=== PATIENT | female | born 1950 | race Caucasian/White ===

== ENCOUNTER 2023-02-16 09:26 | Outpatient (OUT) | payer MEDICARE, SELFPAY ==
[2023-02-16 11:08] LABS: Bilirubin Urine NEGATIVE (NEGATIVE); Blood Urine TRACE-I (NEGATIVE); Clarity Urine CLEAR (CLEAR); Color Urine LT. YELLOW (YELLOW); Glucose Urine UA NEGATIVE (NEGATIVE); Ketones Urine NEGATIVE (NEGATIVE); Leukocyte Esterase Urine NEGATIVE (NEGATIVE); Nitrite Urine NEGATIVE (NEGATIVE); Protein Urine NEGATIVE (NEG/TRACE); Urobilinogen Urine 0.2 EU/dL (0.2-1.0)
[2023-02-16 11:26] LABS: Urine Microscopic Indicated YES
[2023-02-16 11:33] LABS: RBC Urine 0-2 #/HPF (0-2)
[2023-02-16 11:36] LABS: WBC Urine NONE SEEN #/HPF (NONE SEEN)
[2023-02-16 11:38] LABS: Bacteria Urine NONE SEEN #/HPF (NONE SEEN); Mucus Urine NONE SEEN (NONE SEEN)
[2023-02-16 11:39] LABS: Crystals Seen? None Seen #/HPF (None Seen); Squamous Epithelial Cell Urine FEW #/LPF (NONE/RARE); Transitional Epi Cells Urine RARE #/LPF (NONE SEEN)
== END 2023-02-16 09:27 ==
LOC: LAB 09:32
PROVIDERS: PCP Family Medicine; Visit Provider Family Medicine
DX: R82.81 Pyuria (principal); N39.41 Urge incontinence
CPT/HCPCS: 81003; 81015; 87086

== ENCOUNTER 2024-06-27 17:05 | Emergency (ER) | payer MEDICARE, OTHER, SELFPAY ==
[2024-06-27 17:08] VITALS: BP 155/85; PULSE 110; TEMP 36.7; O2SAT 99; BMI 30.5
--- NOTE | 2024-06-27 17:14 | ECG_ITS ---
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
--- NOTE | 2024-06-27 17:28 | ED.GENADUL1 ---
HPI HPI - General Adult General Chief complaint: Extremity Problem, Nontraumatic Stated complaint: Facial Pain, Numbness Time Seen by Provider: 06/27/24 17:12 Source: patient Mode of arrival: walk-in History of Present Illness HPI narrative: 74-year-old female to the emergency department chief complaint of left jaw pain. Patient reports she had some dental work done recently. She has since developed left-sided TMJ discomfort. Hurts worse when she opens her mouth. No chest pain or shortness of breath. No fever, sweats, chills. No injuries. She is otherwise at her baseline health. Related Data Previous Rx's ?Medication ?Instructions ?Recorded methylprednisolone 4 mg tablets in 4 mg PO DAILY #21 ea 06/27/24 a dose pack (Medrol (Landon)) Allergies Allergy/AdvReac Type Severity Reaction Status Date / Time clindamycin Allergy Severe Rash Verified 06/27/24 17:12 hydroxychloroquine (From Allergy Severe Rash Verified 06/27/24 17:12 Plaquenil) Opioid HPI Opioid Management Most Recent Opioid Data: No Data to Display Review of Systems ROS Status of ROS 10 or more systems reviewed and unremarkable except as noted in history and below PFSH PFSH Social History Little interest or pleasure in doing things: not at all Feeling down, depressed, or hopeless: not at all Exam Narrative Exam Narrative: VITALS: I have reviewed the triage vital signs. GENERAL: Well developed, well appearing adult in no acute distress. NEURO: Alert and oriented. Moves all extremities. Face is symmetric and expressive. EYES: PERRL. No scleral icterus or conjunctival injection. No discharge. HENT: Normocephalic, atraumatic. Hearing is grossly intact. Nares grossly patent and without discharge. Mucous membranes moist. Tenderness in the left TMJ. No clicking, popping, dislocation of the TMJ. No evidence of dental infection or deep space abscess. Oropharyngeal exam is unremarkable. TM is unremarkable on the left and the right. No lymphadenopathy. NECK: No JVD. Patient moves neck without restriction. EXTREMITIES: Symmetric muscle bulk. No joint swelling. No clubbing, cyanosis, or deformity. SKIN: Warm and dry. Normal turgor. No rash or lesions appreciated. PSYCH: Mood, affect, and interaction is appropriate to the setting. Constitutional Vital Signs, click to edit/add: Last Vital Signs Temp 98.0 F 06/27/24 17:08 Pulse 110 H 06/27/24 17:08 Resp 18 06/27/24 17:08 BP 155/85 H 06/27/24 17:08 Pulse Ox 99 06/27/24 17:08 O2 Del Method Room Air 06/27/24 17:08 Course Vital Signs Vital signs: Vital Signs Temperature 98.0 F 06/27/24 17:08 Pulse Rate 110 H 06/27/24 17:08 Respiratory Rate 18 06/27/24 17:08 Blood Pressure 155/85 H 06/27/24 17:08 Pulse Oximetry 99 06/27/24 17:08 Oxygen Delivery Method Room Air 06/27/24 17:08 Temperature 98.0 F 06/27/24 17:08 Pulse Rate 110 H 06/27/24 17:08 Respiratory Rate 18 06/27/24 17:08 Blood Pressure 155/85 H 06/27/24 17:08 Pulse Oximetry 99 06/27/24 17:08 Oxygen Delivery Method Room Air 06/27/24 17:08 Medical Decision Making MDM Narrative Medical decision making narrative: 74-year-old female to the emergency department chief complaint of left-sided TMJ discomfort. Vital stable, the patient is afebrile. EKG normal sinus rhythm at a rate of 97. No STEMI. Normal QTc. Clinical picture is that of TMJ dysfunction likely in the setting of recent dental work. She cannot take NSAIDs currently per her report. Trial of Medrol Dosepak. Follow-up with dentist if symptoms continue. Return precautions were discussed. All questions were answered. The patient was discharged home. Discharge Plan Discharge Chief Complaint: Extremity Problem, Nontraumatic Clinical Impression: TMJ dysfunction Patient Disposition: Home, Self-Care Time of Disposition Decision: 17:20 Condition: Good Mode of Transportation: Private Vehicle Prescriptions / Home Meds: New methylprednisolone [Medrol (Landon)] 4 mg tablets,dose pack 4 mg PO DAILY Qty: 21 0RF Rx Instructions: TAKE PER DOSEPAK INSTRUCTIONS Print Language: Jordanian Instructions: Temporomandibular Disorder (ED) Additional Instructions: Call the office of your primary care doctor to arrange for follow-up within the above-stated timeframe. Your ED visit was focused on your acute issue and does not replace primary care. You should review your labs, imaging, and diagnoses from this ED visit with your primary care physician. There may be non-emergent/ incidental findings that need further evaluation. You should review your vital signs including blood pressure with your PCP. If you were prescribed medications you should discuss possible side-effects and drug interactions with your pharmacist. Call 911 or go to the nearest Emergency Department if you develop any new or worsening symptoms. Referrals: LULI TIM [Primary Care Provider] - 1 week
== END 2024-06-27 17:36 | disposition home or self-care (01) ==
PROVIDERS: Emergency Provider Student in an Organized Health Care Education/Training Program; PCP Family Medicine
DX: M26.602 Left temporomandibular joint disorder, unspecified (principal)
CPT/HCPCS: 93005; 99283

== ENCOUNTER 2025-02-18 13:19 | Outpatient (OUT) | payer MEDICARE, OTHER, SELFPAY ==
--- OUTSIDE RECORDS SUMMARY | 2025-02-11 14:30 | XMS_ITS | Encounter Summary ---
Author Organization [facility] Address [address] [place] [address] Care Team Providers Care Greige Goods Examiner Name Role Phone Will Alvarez MD Unavailable Jeet Aguirre MD Unavailable [phone] Osei Arevalo DPM Unavailable Will Alvarez MD Primary Care Provider Reason for Visit * Reason Comments DM Foot Care Established patient presents today for diabetic nail care. PCP: Dr. Alvarez LV 02/02/25, A1C: 5.7 (05/2024), BS: doesn't check Encounter Details Date Type Department Care Team (Latest Contact Info) Description 02/11/2025 2:30 PM EDT Procedure Visit [facility] [address] [place] [address] Osei Arevalo, DPM [address] [place] [address] Onychomycosis (Primary Dx); Onychodystrophy; Diabetic polyneuropathy associated with type 2 diabetes mellitus ([facility]) Social History Tobacco Use Types Packs/Day Years Used Date Smoking Tobacco: Every Day Cigarettes Tobacco Cessation:Ready to Q uit: Not Asked; Counseling Given: Not Answered Comments:6-10 cigs/day Alcohol Use Standard Drinks/Week Comments Not Currently 0 (1 standard drink = 0.6 oz pur e alcohol) caffeine: 2-3 cups per day PHQ-2 Answer Date Recorded Patient Health Questionnaire-2 Score 1 02/02/2025 Education Answer Date Recorded What is the highest level of school you have completed or the highest degree you have received? 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 Subjective Patient ID: Sonia Blanc is a 74 y.o. female who presents for DM Foot Care (Established patient presents today for diabetic nail care. PCP: Dr. Antonio RENAE 02/02/25, A1C: 5.7 (05/2024), BS: doesn't check). HPI Established patient returns to clinic for diabetic foot check. Review of Systems Constitutional: Negative for activity change and appetite change. Respiratory: Negative for chest tightness and shortness of breath. Cardiovascular: Positive for leg swelling. Negative for chest pain. Musculoskeletal: Positive for arthralgias. Skin: Negative for color change and wound. Neurological: Negative for weakness and numbness. Psychiatric/Behavioral: Negative for agitation and behavioral problems. Hematological: Does not bruise/bleed easily. Endocrine: Negative for cold intolerance and heat intolerance. Allergic/Immunologic: Negative for immunocompromised state. Medications Current Outpatient Medications: acetaminophen (Tylenol 8 Hour) 650 MG ER tablet, Take 650 mg by mouth every 8 (eight) hours if needed for mild pain Do not crush, chew, or split., Disp: , Rfl: aspirin 81 MG EC tablet, Take 81 mg by mouth Daily, Disp: , Rfl: atorvastatin (Lipitor) 10 MG tablet, Take 1 tablet (10 mg) by mouth at bedtime, Disp: 90 tablet, Rfl: 3 folic acid (Folvite) 1 MG tablet, 1 mg, Disp: , Rfl: methotrexate 2.5 MG tablet, , Disp: , Rfl: nabumetone (Relafen) 750 MG tablet, Take 750 mg by mouth in the morning and 750 mg before bedtime.,Disp: , Rfl: omeprazole (PriLOSEC) [address] capsule, Take 20 mg by mouth in the morning. Take before meals., Disp: , Rfl: DULoxetine (Cymbalta) [address] capsule, Take 1 capsule (60 mg) by mouth Daily, Disp: 90 capsule, Rfl: 1 metFORMIN (Glucophage) 1000 MG tablet, Take 1 tablet (1,000 mg) by mouth in the morning and 1 tablet (1,000 mg) in the evening. Take with meals., Disp: 180 tablet, Rfl: 1 Allergies Hydroxychloroquine, Clindamycin, and Levofloxacin Past Surgical History Past Surgical History: Procedure Laterality Date APPENDECTOMY CARPAL TUNNEL RELEASE Right 07/26/2022 Dr Garcia, [facility] CHOLECYSTECTOMY HYSTERECTOMY IR JOINT ASPIRATION Right Arthrocentesis of the right knee joint AL KNEE SCOPE,DIAGNOSTIC Right Dr. Cardona AL MANIPULATION KNEE JOINT UNDER GENERAL ANESTHESIA Right 02/09/2021 Dr Magana REVERSE TOTAL SHOULDER ARTHROPLASTY Right 10/29/2023 Dr Magana ROTATOR CUFF REPAIR Left TONSILLECTOMY TOTAL KNEE ARTHROPLASTY 07/21/19 Left, 11/10/20 Right - Dr Magana TOTAL SHOULDER ARTHROPLASTY Left 04/19/2023 Dr Sergey clifton Family History Family History Problem Relation Name Age of Onset No Known Problems Sister Objective Physical Exam Constitutional: General: She is not in acute distress. Appearance: She is obese. Cardiovascular: Comments: DP pulse: 2/4 PT pulse: 2/4 Skin temperature is warm to cool bilaterally Edema: Mild nonpitting edema bilateral lower extremities Pulmonary: Effort: Pulmonary effort is normal. No respiratory distress. Musculoskeletal: Cervical back: Neck supple. No rigidity. Comments: Pedal deformities: Multiple contracted toes bilaterally. Ankle dorsiflexion 0 degrees with the knee extended and flexed bilaterally. Bilateral midfoot arthritis with palpable osteophytes. Skin: Capillary Refill: Capillary refill takes less than 2 seconds. Comments: 5 toenails exhibit clinical mycosis with thickened appearance, yellow/brown discoloration, crumbly texture and subungual debris. All toenails are elongated. Right hallux nail has been permanently avulsed. Hyperkeratotic tissue: Left foot: None Right foot: None Skin is diffusely thin and atrophic Hair growth: Absence of the hair and toes Neurological: Mental Status: She is alert. Comments: Protective sensation intact at 9/10 pedal sites Vibratory sensation diminished at the 1st MTP bilaterally. Psychiatric: Mood and Affect: Mood normal. Behavior: Behavior normal. Assessment/Plan ICD-10-CM 1. Onychomycosis B35.1 2. Onychodystrophy L60.3 3. Diabetic polyneuropathy associated with type 2 diabetes mellitus (CMS/HCC) E11.42 Patient was examined and evaluated. 9 toenails were debrided in length and thickness today utilizing a nail nipper and electric bur rotary surface grinder without incident. I have discussed the importance of daily foot examinations and tight blood sugar control. We will follow up in 3 months for at risk diabetic foot evaluation. This note was created with the assistance of a speech recognition program. While intending to generate a timely document that accurately reflects the content of the visit, no guarantee can be provided that every grammatical or spelling mistake has been or will be identified or corrected. Thank you for your understanding. Osei Arevalo DPM documented in this encounter Plan of Treatment Upcoming Encounters Date Type Department Care Team (Late st Contact Info) Description 05/19/2025 3:00 PM EDT Procedure Visit [facility] [address] [place] [id number] Osei Arevalo DPM [address] [place], [place] [id number] documented as of this encounter Visit Diagnoses Diagnosis Onychomycosis- Primary Dermatophytosis of nail Onychodystrophy Other specified disease of nail Diabetic polyneuropathy associated with type 2 diabetes mellitus (CMS/HCC) documented in this encounter Additional Health Concerns Assessment Noted Time PHQ-9 Depression Total Score: 5 02/03/20 25 9:00 AM EDT documented as of this encounter Care Teams Greige Goods Examiner Relationship Specialty Start Date End Date Will Alvarez MD [address] [place] [address] PCP - ACO Reach 02/08/23 Will Alvarez MD [address] [place] [address] PCP - General Family Medicine 02/10/25 Jeet Aguirre MD [address] [facility] [address] [place] [id number] Referring Physician Rheumatology 10/25/23 Osei Arevalo DPM [address] [place] [address] Referring Physician Podiatry 10/25/23 documented as of this encounter
--- OUTSIDE RECORDS SUMMARY | 2025-02-18 13:21 | XMS_ITS | Clinical Summary ---
Author Organization [employer] Address [id number] [address] [place] [address] Care Team Providers Care Systems Software Developer Name Role Phone Will Alvarez MD Primary Care Provider + [phone] Allergies Active Allergy Reactions Criticality Noted Date Comments Levofloxacin Rash Low 05/02/2023 Hydroxychloroquine Rash Low 10/20/2020 Medications methotrexate 2.5 mg chemo tabletIndications :rheumatoid arthritis Take 1 tablet by mouth once a week 8 tabs every Sunday Indications: rheumatoid arthritis Active nsqwirxb-lmpu-VW- calcium &mins (THERAGRAN-M) 9 mg iron-400 mcg tablet Take 1 tablet by mouth in the morning. Active omeprazole (PriLOSEC) 20 mg capsuleIndication s:gastroesophagea l reflux disease Take 1 capsule (20 mg total) by mouth in the morning. Indications: gastroesophageal reflux disease. Active atorvastatin (LIPITOR) 10 mg tabletIndications :mixed hyperlipidemia Take 1 tablet (10 mg total) by mouth in the morning. Indications: high cholesterol and high triglycerides. Activ e metFORMIN (GLUCOPHAGE) 1000 mg tabletIndications :type 2 diabetes mellitus Take 1 tablet (1,000 mg total) by mouth in the morning and 1 tablet (1,000 mg total) in the evening. Take with meals. Indications: type 2 diabetes mellitus. Active folic acid (FOLVITE) 1 mg tablet Take 1 tablet (1 mg total) by mouth in the morning. Active latanoprost (XALATAN) 0.005 % ophthalmic solutionIndicatio ns:open angle glaucoma Administer 1 drop to both eyes nightly Indications: wide-angle glaucoma. Active aspirin 81 mgIndications:samra cardial infarction prevention Take 1 tablet (81 mg total) by mouth in the morning. Indications: treatment to prevent a heart attack. Active gabapentin (NEURONTIN) 600 mg tabletIndications :neuropathic pain Take 1 tablet (600 mg total) by mouth as needed Indications: neuropathic pain. 01/09/20 Active amoxicillin (AMOXIL) 500 mg capsule Take 1 capsule (500 mg total) by mouth once. Active DULoxetine (CYMBALTA) 60 mg capsule Take 1 capsule (60 mg total) by mouth in the morning. 06/14/20 Active sennosides-docusa te sodium (SENOKOT-S) 8.6-50 mgIndications:Lef t rotator cuff tear arthropathy Take 2 tablets by mouth in the morning and 2 tablets before bedtime. 120 tablet 05/17/20 Active Active Problems Problem Noted Date Diagnosed Date Urge incontinence of urine 05/02/2023 Asymptomatic microscopic hematuria 05/01/2023 Left rotator cuff tear arthropathy 02/28/2023 Neuropathy of left lower extremity 02/08/2023 Leg length discrepancy 02/08/2023 Degenerative disc disease, cervical 02/08/2023 Chronic pain disorder 06/28/2021 Recurrent hematuria 06/13/2021 Chronic fatigue 05/25/2021 Ankylosis of knee joint 02/03/2021 Status post right knee replacement 12/27/2020 Primary osteoarthritis of right knee 11/09/2020 Unspecified rotator cuff tea r or rupture of left shoulder, not specified as traumatic 08/02/2020 Gastroesophageal reflux disease without esophagi tis 02/11/2020 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 02/11/2020 Rheumatoid arthritis 12/04/2019 Obesity 11/10/2019 Artificial knee joint present 07/29/2019 Difficulty walking 07/27/2019 Venous insufficiency 11/28/2018 Recurrent major depressive disorder, in partial remission 11/28/2018 Mixed hyperlipidemia 12/21/2017 Essential hypertension 08/29/2017 Family History Medical History Relation Name Comments Diabetes Father Diabetes Mother Anesthesia problems Neg Hx Relation Name Status Comments Father Mother Social History Tobacco Use Types Packs/Day Years Used Date Smoking Tobacco: Every Day Cigarettes 0.3 42 Passive Smoke Exposure: Past Smokeless Tobacco: Never Alcohol Use Standard Drinks/Week Comments Never 0 (1 standard drink = 0.6 oz pur e alcohol) AUDIT-C Answer Date Recorded Q1: How often do you have a drink containing alc ohol? Never 10/20/2020 Average Number of Drinks Not on file 021 Frequency of Binge Drinking Not on file 11/2020 PHQ-2 Answer Date Recorded Total Score 0 11/10/2020 Housing Instability Answer Date Recorde d Are you worried or concerned that in the next two months you may not have stable housing that you own, rent or stay in as a part of a household? No 05/16/2023 Childcare Answer Date Recorded Do problems getting child ca re make it difficult for you to work or study? No 11/10/2020 Employment Answer Date Recorded Do you need help finding a [employer] career center and/or a training program? No 11/10/2020 Hunger Screening Answer Date Recorded Within the past 12 months we worried whether our food would run out before we got money to buy more. Never True 08/07/2023 Within the past 12 months th e food we bought just didn't last and we didn't have money to get more. Never True 08/07/2023 Purpose - Life Answer Date Recorded I have a purpose and direction in my life. Agree 11/10/2020 Comments No Sex and Gender Information Value Date Recorded Sex Assigned at Not on file Legal Sex Female 11:53 AM EDT Gender Identity Not on file Sexual Orientation Not on file Last Filed Vital Signs Vital Sign Reading Time Taken Comments Blood Pressure 117/59 05/16/2023 1:58 PM EDT Pulse 80 05/16/2023 1:58 PM EDT Temperature 36.1 C (97 F) 05/16/2023 1:58 PM EDT Respiratory Rate 16 05/16/2023 1:58 PM EDT Oxygen Saturation 100% 05/16/2023 1:58 PM EDT Inhaled Oxygen Concentration - - Weight 83.5 kg (184 lb) 08/07/2023 12:47 PM EST Height 160 cm (5' 3 ) 08/07/2023 12:47 PM EST Body Mass Index 32.59 08/07/2023 12:47 PM EST Plan of Treatment Health Maintenance Due Date Last Done Comments Depression Screening 1962 DTaP,Tdap and Td Vaccines (1 - Tdap) 1971 Zoster (Shingles) Vaccine (2 of 3) 04/09/2015 02/12/2015 Fall Risk Screening 2017 COVID-19 Vaccine (2023-2 5 season) 2024 08/01/2021, 10/26/2020, 10/05/2020 Adult BMI Screening 08/07/2024 08/07/2023 Tobacco Screening 08/07/2024 08/07/2023 Influenza Vaccine 05/18/2025 06/13/2023, , 07/08/2021, Additional history exists Goals Goal Patient Goal Type Associated Problems Recent Progress Patient-Stated? Author Improve mobility General Yes Zenia Richard, RN Note: Evaluation of progress towards goal: Maximize work with PT at discharge to strengthen Left TSR Medical Devices Implanted Type Area Turbine Inspector Device Identifier Shelf Expiration Date Model / Serial / Lot Bearing Hum 36mm Cmprh Std Shldr Prlng Rvrs - [id number] Implanted:Qty : 1 on 05/16/2023 by Joshua Rincon MD at [facility] Bearing Left: Shoulder [employer] [id number] 11/26/2027 [id number] / / [id number] Cmnt Bn Bio 40gm Rpl [id number] - Sna - [id number] Implanted:Qty : 2 on 11/10/2020 by Slava Magana DO at [facility] Cement Right: Knee [employer] 09/16/2024 [id number] / NA / [id number] Cmpt Fem 5 Kn Rt Crcte Rtn - Sna - [id number] Implanted:Qty : 1 on 11/10/2020 by Slava Magana DO at [facility] Orthopedic Implant Right: Knee [employer] 12/15/2028 [id number] / NA / [id number] Cmpt Ptlr 35mm Medialized Dome - Sna - [id number] Implanted:Qty : 1 on 11/10/2020 by Slava Magana DO at [facility] Orthopedic Implant Right: Knee [employer] 06/16/2025 [id number] / NA / [id number] Ins Tib 5 5mm Cr Fx Brng - Sna - [id number] Implanted:Qty : 1 on 11/10/2020 by Slava Magana DO at [facility] Orthopedic Implant Right: Knee [employer] 07/17/2025 [id number] / NA / [id number] Impl Kn Fx Brng W Spcl Ins Construct Rpl [id number] - Sna - [id number] Implanted:Qty : 1 on 11/10/2020 by Slava Magana DO at [facility] Orthopedic Implant Right: Knee OR[employer] [id number] / NA / NA Baseplate Krishna Cmprh Sm Shldr Aug Tpr Adpr - [id number] Implanted:Qty : 1 on 05/16/2023 by Joshua Rincon MD at [facility] Orthopedic Implant Left: Shoulder [employer] [id number] 04/26/2028 [id number] / / [id number] Component Krishna 36mm Std Glenosphere Clr Cd Cmprh Versa-Dial - [id number] Implanted:Qty : 1 on 05/16/2023 by Joshua Rincon MD at [facility] Orthopedic Implant Left: Shoulder [employer] [id number] 10/18/2032 [id number] / / [id number] Stem Hum 55mm 11mm Cmprh Por Mt Shldr Rvrs Sys - [id number] Implanted:Qty : 1 on 05/16/2023 by Joshua Rincon MD at [facility] Orthopedic Implant Left: Shoulder [employer] 01/09/2033 [id number] / / [id number] Tray Hum Cmprh Std Shldr Rvrs - [id number] Implanted:Qty : 1 on 05/16/2023 by Joshua Rincon MD at [facility] Orthopedic Implant Left: Shoulder [employer] [id number] 04/09/2033 [id number] / / [id number] Bsplt Tib 5 Kn Cmnt Fx Brng - Sna - [id number] Implanted:Qty : 1 on 11/10/2020 by Slava Magana DO at [facility] Plate Right: Knee [employer] 06/16/2030 [id number] / NA / [id number] Screw Bn 30mm 6.5mm Cntr Hx Hd Ti Cmprh 3.5mm Strl Rvrs - [id number] Implanted:Qty : 1 on 05/16/2023 by Joshua Rincon MD at [facility] Screw Left: Shoulder [employer] 11/09/2032 [id number] / / [id number] Screw Bn 20mm 4.75mm Lck Fx Ang Hx Hd Ti Cmprh 3.5mm Strl - [id number] Implanted:Qty : 1 on 05/16/2023 by Joshua Rincon MD at [facility] Screw Left: Shoulder [employer] [id number] 02/01/2033 [id number] / / [id number] Screw Bn 15mm 4.75mm Lck Fx Ang Hx Hd Ti Cmprh 3.5mm Strl - [id number] Implanted:Qty : 1 on 05/16/2023 by Joshua Rincon MD at [facility] Screw Left: Shoulder [employer] [id number] 04/01/2033 [id number] / / [id number] Screw Bn 15mm 4.75mm Lck Fx Ang Hx Hd Ti Cmprh 3.5mm Strl - [id number] Implanted:Qty : 1 on 05/16/2023 by Joshua Rincon MD at [facility] Screw Left: Shoulder [employer] [id number] 04/01/2033 [id number] / / [id number] Screw Bn 20mm 4.75mm Va Hx Hd Ti Cmprh 3.5mm Strl Rvrs Shldr - [id number] Implanted:Qty : 1 on 05/16/2023 by [facility] Screw Left: Shoulder [employer] [id number] 01/05/2032 [id number] / / [id number] Insurance MEDICARE COMMERCIAL Advance Directives Documents on File Type Date Recorded Patient Legal Adviser Expl anation Durable Power of Decorative Cutting Machine Tender 05/02/2023 12:37 PM POA * Full Code (Latest Code Status on File) Date Activated Date Inactivated Comments 05/16/2023 10:16 AM 05/16/2023 5:16 PM * Full Code Date Activated Date Inactivated Comments 11/10/2020 11:25 AM 11/11/2020 7:52 PM Care Teams Systems Software Developer Relationship Specialty Start Date End Date Will Alvarez MD PCP - General Family Medicine 10/20/20
--- OUTSIDE RECORDS SUMMARY | 2025-02-18 13:22 | XMS_ITS | Clinical Summary ---
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 Take before meals. 3 Active folic acid (Folvite) 1 MG tablet 1 mg 4 Active acetaminophen (Tylenol 8 Hour) 650 MG ER tablet Take 650 mg by mouth every 8 (eight) hours if needed for mild pain Do not crush, chew, or split. Active metFORMIN (Glucophage) 1000 MG tabletIndications:I mpaired glucose tolerance test Take 1 tablet (1,000 mg) by mouth in the morning and 1 tablet (1,000 mg) in the evening. Take with meals. 180 tablet 1 4 Active DULoxetine (Cymbalta) [address] capsuleIndications: Recurrent major depressive disorder, in partial remission (HCC) (CMS/HCC) Take 1 capsule (60 mg) by mouth Daily 90 capsule 1 4 Active atorvastatin (Lipitor) 10 MG tabletIndications:M ixed hyperlipidemia (CMS/HCC) Take 1 tablet (10 mg) by mouth at bedtime 90 tablet 3 5 10/20/19 26 Active nabumetone (Relafen) 750 MG tablet Take 750 mg by mouth in the morning and 750 mg before bedtime. 5 Active Active Problems Problem Noted Date Diagnosed Date Microalbuminuria 02/15/2025 Diverticulosis large intesti ne w/o perforation or abscess w/o bleeding 07/15/2024 Artificial knee joint present, right 02/07/2024 Presence of artificial shoulder joint, right Hypertensive nephropathy 10/09/2023 Left foot pain 08/23/2023 Cubital tunnel syndrome on left 07/05/2023 Presence of artificial shoulder joint, left 06/17 Asymptomatic microscopic hematuria 05/01/2023 Nocturnal enuresis 05/01/2023 Urge incontinence of urine 05/01/2023 Anterolisthesis of cervical spine 02/08/2023 Artificial knee joint present, left 02/08/2023 Cervical arthritis 02/08/2023 Chronic fatigue 02/08/2023 Chronic pain syndrome 02/08/2023 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 02/08/2023 Cigarette smoker 02/08/2023 Degenerative disc disease, cervical 02/08/2023 Dermatomyositis 02/08/2023 Essential hypertension 02/08/2023 Gastroesophageal reflux disease without esophagi tis 02/08/2023 Hx of abdominal hysterectomy 02/08/2023 Leg length discrepancy 02/08/2023 Mixed hyperlipidemia 02/08/2023 Obesity (BMI 30.0-34.9) 02/08/2023 Recurrent major depressive d isorder, in partial remission (HCC) 02/08/2023 Venous insufficiency 02/08/2023 Polypharmacy 10/26/2020 Rheumatoid arthritis 12/04/2019 Impaired glucose tolerance test 01/22/2019 Insulin resistance 01/22/2019 Resolved Problems Problem Noted Date Diagnosed Date Resolved Date Positive colorectal cancer s creening using Cologuard test 05/23/2024 06/24/2024 Left shoulder pain 07/04/2023 4 Arthritis of right acromioclavicular joint 02/08/2023 02/07/2024 Bone spur 02/08/2023 02/05/2024 Arthritis of left glenohumeral joint 02/08/2023 02/07/2024 Neurologic disorder associat ed with diabetes mellitus 02/08/2023 02/05/2024 Neuropathy of left lower extremity 02/08/2023 02/05/2024 Primary osteoarthritis of left knee 02/08/2023 02/07/2024 Rupture of right rotator cuff 02/08/2023 02/07/2024 Status post left knee replacement 02/08/2023 02/07/2024 Tear of left rotator cuff 02/08/2023 Encounters Date Type Department Care Team Description 02/15/2025 Orders Only [facility] [address] [place] [address] Will Alvarez MD 02/11/2025 2:30 PM EDT Procedure Visit [facility] [address] [place] [address] Osei Arevalo DPM Onychomycosis (Primary Dx); Onychodystrophy; Diabetic polyneuropathy associated with type 2 diabetes mellitus ([facility]) 02/11/2025 Bamboo flowsheet [facility] [address] [place] [address] Osei Arevalo DPM 02/11/2025 Travel 02/10/2025 Travel 02/02/2025 9:00 AM EDT Office Visit [facility] [address] [place] [address] Will Alvarez MD Encounter for Medicare annual wellness exam (Primary Dx); Advance directive in chart; Encounter for screening for other disorder; Screening for alcohol problem; Obesity (BMI 30.0-34.9); Screening mammogram, encounter for; Screening for osteoporosis; Dermatomyositis (CMS/[facility]); Rheumatoid arthritis involving multiple sites with positive rheumatoid factor ([facility]); Recurrent major depressive disorder, in partial remission (HCC) (CMS/HCC); Mixed hyperlipidemia (CMS/HCC); Essential hypertension (CMS/HCC); Hypertensive nephropathy (CMS/HCC); Menopause; Insulin resistance; Impaired glucose tolerance test; Cigarette smoker; Cardiovascular event risk 02/02/2025 Bamboo flowsheet [facility] [address] [place] [address] Will Alvarez MD 02/02/2025 Travel 01/20/2025 Telephone [facility] [address] [place] [address] CosmeLynn MA Referral 01/07/2025 Telephone [facility] [address] [place] [address] Will Alvarez MD 01/07/2025 Orders Only [facility] [address] [place] [address] Will Alvarez MD 01/06/2025 Telephone [facility] [address] [place] [address] Will Alvarez MD 01/05/2025 10:30 AM EDT Treatment [facility] [address] [place] [address] Michela Campos, PT Chronic pain syndrome (Primary Dx); Right leg weakness; Neuropathy; Right foot pain 01/05/2025 Bamboo flowsheet [facility] [address] [place] [address] Michela Campos, PT 01/05/2025 Travel 01/01/2025 2:00 PM EDT Treatment [facility] [address] [place] [address] Jaimee Velazquez, LEAN SENSEI Chronic pain syndrome (Primary Dx); Right leg weakness 01/01/2025 Bamboo flowsheet [facility] [address] [place] [address] Jaimee Velazquez, LEAN SENSEI 01/01/2025 Travel 12/30/2024 2:00 PM EDT Treatment [facility] [address] [place] [address] Kelbley, Jaimee, LEAN SENSEI Chronic pain syndrome (Primary Dx); Right leg weakness 12/30/2024 Bamboo flowsheet [facility] [address] [place] [address] Kelbley, Jaimee, LEAN SENSEI 12/30/2024 Travel 12/25/2024 2:00 PM EDT Treatment [facility] [address] [place] [address] Kelbley, Jaimee, LEAN SENSEI Chronic pain syndrome (Primary Dx); Right leg weakness 12/25/2024 Bamboo flowsheet [facility] [address] [place] [address] Kelbley, Jaimee, LEAN SENSEI 12/25/2024 Travel 12/22/2024 7:00 AM EDT Treatment [facility] [address] [place] [address] Kelbley, Jaimee, LEAN SENSEI Chronic pain syndrome (Primary Dx); Right leg weakness 12/22/2024 Bamboo flowsheet [facility] [address] [place] [address] Kelbley, Jaimee, LEAN SENSEI 12/22/2024 Travel 12/19/2024 10:00 AM EDT Treatment [facility] [address] [place] [address] Kelbley, Jaimee, LEAN SENSEI Chronic pain syndrome (Primary Dx); Right leg weakness 12/19/2024 Bamboo flowsheet [facility] [address] [place] [address] Kelbley, Jaimee, LEAN SENSEI 12/19/2024 Travel 12/16/2024 2:00 PM EDT Treatment [facility] [address] [place] [address] Kelbley, Jaimee, LEAN SENSEI Chronic pain syndrome (Primary Dx); Right leg weakness; Neuropathy 12/16/2024 Bamboo flowsheet [facility] [address] [place] [address] Audrey Velazquezissa, LEAN SENSEI 12/16/2024 Travel 12/10/2024 2:00 PM EDT Treatment [facility] [address] [place] [address] Audrey Velazquezissa, LEAN SENSEI Chronic pain syndrome (Primary Dx); Right leg weakness 12/10/2024 Bamboo flowsheet [facility] [address] [place] [address] Audrey Velazquezissa, LEAN SENSEI 12/10/2024 Travel 12/08/2024 8:30 AM EDT Treatment [facility] [address] [place] [address] Audrey Velazquezissa, LEAN SENSEI Chronic pain syndrome (Primary Dx); Right leg weakness; Neuropathy 12/08/2024 Telephone [facility] [address] [place] [address] Will Alvarez MD 12/08/2024 Bamboo flowsheet [facility] [address] [place] [address] Jaimee Velazquez, LEAN SENSEI 12/08/2024 Travel 12/05/2024 11:00 AM EDT Treatment [facility] [address] [place] [address] Nakul Garcia, LEAN SENSEI Chronic pain syndrome (Primary Dx); Right leg weakness; Neuropathy 12/05/2024 Bamboo flowsheet [facility] [address] [place] [address] Nakul Garcia, LEAN SENSEI 12/05/2024 Travel 12/03/2024 3:00 PM EDT Evaluation [facility] [address] [place] [address] Michela Campos, PT Right leg weakness (Primary Dx); Chronic pain syndrome; Neuropathy; Right foot pain 12/03/2024 Plan of Care Documentation [facility] [address] [facility] [address] [place] [address] 12/03/2024 Bamboo flowsheet [facility] [address] [facility] [address] [place] [address] Michela Campso, PT 12/03/2024 Travel 11/25/2024 Telephone [facility] [address] [facility] [address] [place] [address] Will Alvarez MD Results 11/24/2024 11:00 AM EDT Procedure Visit [facility] [address] [place] [address] Myranda Ruano DO Lumbosacral radiculopathy (Primary Dx); Right foot pain; Right leg weakness; Limping; Artificial knee joint present, right; Right leg swelling 11/24/2024 9:00 AM EDT Office Visit [facility] [address] [facility] [address] [place] [address] Will Alvarez MD Essential hypertension (CMS/HCC) ; Mixed hyperlipidemia (CMS/HCC) ; Impaired glucose tolerance test; Recurrent major depressive disorder, in partial remission (HCC) (CMS/HCC); Current smoker; Polypharmacy; Obesity (BMI 30.0-34.9) 11/24/2024 Bamboo flowsheet [facility] [address] [facility] [address] [place] [address] Will Alvarez MD 11/24/2024 Travel from Last 3 Months Immunizations Immunization Administration Dates Next Due ABRYSVO - Respiratory syncyt ial virus (RSV), vaccine, bivalent, protein subunit RSV prefusion F, diluent reconstituted, 0.5 mL, PF 08/20/2024 Influenza, High Dose Seasona l, Preservative Free 08/20/2024,06/17/2020,07/17/2017 Influenza, High-dose Seasona l, Quadrivalent, Preservative Free 06/28/2022 Influenza, Seasonal, Quadriv alent, Adjuvanted 06/13/2023 Influenza, Unspecified 06/13/2023,2021,07/08/2021,06/17,06/16/2020,06/24/2019,07/17/2017 ,06/17/2016 Influenza, injectable, quadr ivalent, preservative free 06/17/2022,07/08/2021,06/23/2019,06/17 Influenza, injectable, quadr ivalent, preservative free, pediatric 06/16/2020 Influenza, trivalent, adjuvanted 06/24/2019 Pneumococcal Conjugate PCV 13 12/29/2018 Pneumococcal Conjugate PCV 20 08/20/2024 Pneumococcal Polysaccharide PPSV23 01/14/2017, SARS-COV-2 (COVID-19) vaccin e, mRNA, spike protein, LNP, bivalent, preservative free, 30 mcg/0.3 mL dose, lulú-sucrose formulation 07/12/2022 Zoster, live 02/12/2015 Family History Medical History Relation Name Comments No Known Problems Sister Relation Name Status Comments Daughter Alive Father Mother Sister Son Alive 2 sons Social History Tobacco Use Types Packs/Day Years [...] 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 Not on file Not on file Last Filed Vital Signs Vital Sign Reading Time Taken Comments Blood Pressure 126/72 02/02/2025 9:17 AM EDT Pulse 92 02/02/2025 9:17 AM EDT Temperature - - Respiratory Rate - - Oxygen Saturation 99% 02/02/2025 9:17 AM EDT Inhaled Oxygen Concentration - - Weight 80.7 kg (178 lb) 02/11/2025 2:27 PM EDT Height 160 cm (5' 3 ) 02/11/2025 2:27 PM EDT Body Mass Index 31.53 02/11/2025 2:27 PM EDT Plan of Treatment Upcoming Encounters Date Type Department Care Team (Late st Contact Info) Description 05/19/2025 3:00 PM EDT Procedure Visit [facility] [address] [place] [address] Osei Arevalo, DPM [address] [facility] [place] [address] Health Maintenance Due Date Last Done Comments CT Colonography 1950 FIT 1950 FOBT 1950 Sigmoidoscopy 1950 Mammogram 07/22/2022 07/22/2021, 04/2020, 02/23/2020, Additional history exists Diabetes: Hemoglobin A1C 05/16/2025 025, 05/30/2024, 05/02/2023, Additional history exists Medicare Annual Wellness (AWV) 02/02/2026 0 02/02/2025, 02/05/2024, 08/21/2022 Diabetes: Urine Protein Screening 02/13/2026 02/13/2025, 11/29/2021, 06/14/2018 Diabetes: Retinopathy Screening 07/18/2026 , 09/13/2022 FIT-DNA 02/23/2027 02/24/2024 Colonoscopy 07/02/2034 07/02/2024 Colorectal Cancer Screening 07/02/2034 Influenza Vaccine Completed 08/20/2024, , 06/13/2023, Additional history exists Pneumococcal Vaccine: 65+ Years Completed 08/20/2024, 12/29/2018, 01/14/2017, Additional history exists Procedures Procedure Name Priority Date/Time Associated Diagnosis Comments MICROALBUMIN / CREATININE URINE RATIO Routine 02/13/2025 8:31 AM EDT Essential hypertension (CMS/HCC) Hypertensive nephropathy (CMS/HCC) Insulin resistance Impaired glucose tolerance test HEMOGLOBIN A1C Routine 02/13/2025 8:31 AM EDT Insulin resistance Impaired glucose tolerance test [facility] NVC 5-6 NERVES Routine 11/24/2024 11:53 AM EDT Right foot pain Right leg weakness Right leg swelling Lumbosacral radiculopathy [facility] EMG 1 EXTREMEITY Routine 11/24/2024 11:53 AM EDT Right foot pain Right leg weakness Right leg swelling Lumbosacral radiculopathy DIABETIC RETINOPATHY SCREENING - OU - BOTH EYES Routine 07/18/2024 10:02 AM EDT COLONOSCOPY Routine 07/02/2024 11:03 AM EDT LAB COLOGUARD COLON CANCER SCREEN Routine 02/24/2024 9:00 AM EDT Colon cancer screening BI MAMMOGRAM SCREENING TOMOSYNTHESIS BILATERAL Routine 07/22/2021 from Last 3 Months or Most Recently Relevant to Health Maintenance Results * (ABNORMAL) Microalbumin / creatinine urine ratio (02/13/2025 8:31 AM EDT) Pathologist [facility] CREATININE, RANDOM URINE 24 20 - 275 mg/dL [facility] ALBUMIN, URINE 3.7 See Note: mg/dL [facility] Comment: Reference Range: Reference Range Not established ALBUMIN/CREATININE RATIO, RANDOM URINE 154(H) <30 mg/g creat [facility] Comment: The ADA defines abnormalities in albumin excretion as follows: Albuminuria Category Result (mg/g creatinine) Normal to Mildly increased <30 Moderately increased 30-299 Severely increased > OR = 300 The ADA recommends that at least two of three specimens collected within a 3-6 month period be abnormal before considering a patient to be within a diagnostic category. Urine Urine specimen obtained by clean catch procedure / Unknown 02/13/2025 8:31 AM EDT 02/13/2025 3:49 PM EDT Narrative Resulting Agency Comment Performing Organization Information Site ID: QPT Name: [facility] Address: [address] [place] [address], [address] [place] [phone] Director: Edgardo Lake MD Will Alvarez MD LAB URINE ORDERABLES Final R esult Performing Organization Address City/[facility]/ZIP Co de Phone Number [facility] * Hemoglobin A1c (02/13/2025 8:31 AM EDT) Hemoglobin A1C 5.6 <5.7 % [facility] Comment: For the purpose of screening for the presence of diabetes: <5.7% Consistent with the absence of diabetes 5.7-6.4% Consistent with increased risk for diabetes (prediabetes) > or =6.5% Consistent with diabetes This assay result is consistent with a decreased risk of diabetes. Currently, no consensus exists regarding use of hemoglobin A1c for diagnosis of diabetes in children. According to [place] [employer] (ADA) guidelines, hemoglobin A1c <7.0% represents optimal control in non- diabetic patients. Different metrics may apply to specific patient populations. Standards of Medical Care in Diabetes(ADA). Blood Venous blood specimen / Unknown 02/13/2025 8:31 AM EDT 02/13/2025 3:49 PM EDT Narrative Resulting Agency Comment Performing Organization Information Site ID: QPT Name: [facility] Address: [address] [place] [address], [address] [place] [phone] Director: Edgardo Lake MD Will Alvarez MD LAB BLOOD ORDERABLES Final R esult Performing Organization Address [facility] Co de Phone Number [facility] * NVC 5-6 Nerves (11/24/2024 11:53 AM EDT) Narrative Myranda Ruano DO - 11/24/2024 11:53 AM EDT EMG/NCS RLE L5/S1 radic vs common peorneal neuropathy that is less likely. Myranda Ruano DO NEUROLOGY ORDERABLES Final Resu lt * EMG 1 Extremeity (11/24/2024 11:53 AM EDT) Narrative Myranda Ruano DO - 11/24/2024 11:53 AM EDT EMG/NCS RLE L5/S1 radic vs common peorneal neuropathy that is less likely. us Will Alvarez MD NEUROLOGY ORDERABLES Final R esult * Diabetic Retinopathy Screening - OU - Both Eyes (07/18/2024 10:02 AM EDT) Anatomical Region Laterality Modality Head Other Angie Early OD OPHTH PHOTOGRAPHY Final Result * Colonoscopy (07/02/2024 11:03 AM EDT) Anatomical Region Laterality Modality Endoscopy Will Alvarez MD ENDOSCOPY PROCEDURE ORDERABL ES Final Result * (ABNORMAL) Cologuard?? colon cancer screening (02/24/2024 9:00 AM EDT) NONINV COLON CA DNA+OCC BLD SCRN STL-IMP Positive( A) Negative 03/03/2024 5:41 PM EDT [facility] (CLIA #:[id number]) Comment: POSITIVE TEST RESULT. A positive Cologuard result should be followed with a colonoscopy or visual examination of the colon. The normal value (reference range) for this assay is negative. TEST DESCRIPTION: Composite algorithmic analysis of stool DNA-biomarkers with hemoglobin immunoassay. Quantitative values of individual biomarkers are not reportable and are not associated with individual biomarker result reference ranges. Cologuard is intended for colorectal cancer screening of adults of either sex, 45 years or older, who are at average-risk for colorectal cancer (CRC). Cologuard has been approved for use by the U.S. FDA. The performance of Cologuard was established in a cross sectional study of average-risk adults aged 50-84. Cologuard performance in patients ages 45 to 49 years was estimated by sub-group analysis of near-age groups. Colonoscopies performed for a positive result may find as the most clinically significant lesion: colorectal cancer [4.0%], advanced adenoma (including sessile serrated polyps greater than or equal to 1cm diameter) [20%] or non- advanced adenoma [31%]; or no colorectal neoplasia [45%]. These estimates are derived from a prospective cross-sectional screening study of 10,000 individuals at average risk for colorectal cancer who were screened with both Cologuard and colonoscopy. (Henry Wynn al, N Engl J Med 2014;370(14):9445-5828.) Cologuard may produce a false negative or false positive result (no colorectal cancer or precancerous polyp present at colonoscopy follow up). A negative Cologuard test result does not guarantee the absence of CRC or advanced adenoma (pre-cancer). The current Cologuard screening interval is every 3 years. ([place] Cancer Society and U.S. Multi-Society Task Force). Cologuard performance data in a 10,000 patient pivotal study using colonoscopy as the reference method can be accessed at the following location: [email or web address]/results. Additional description of the Cologuard test process, warnings and precautions can be found at www.cologuard.com. Stool specimen (specimen) Rectal contents / Unknown 02/24/2024 9:00 AM EDT 02/26/2024 11:26 AM EDT Will Alvarez MD LAB MOLECULAR DIAGNOSTICS OR DERABLES Final Result .[employer] (CLIA #:[id number]) [address] [id number] [phone] [facility] (CLIA #:[id number]) [address] [address] * Bilateral screening mammogram with tomosynthesis (07/22/2021) Anatomical Region Laterality Modality Breast Bilateral Mammography Narrative 07/22/2021 12:00 AM EDT PERFORMED AT [facility] LOCATION:[place] [address] Patient: HOLLI Woody Exam Date: 07/22/2021 : 1950 Gender:F Ordering : DR WILL ALVAREZ . Admission #: [id number] Family : Order #: [id number] CLICK HERE TO VIEW EXAM RADIOLOGY REPORT PROCEDURE: MAMMOGRAM SCREENING 3D BILATERAL CAD COMPARISON: MG MAMM SCREEN ANA W CAD 01/25/2018. MG MAMM SCREEN ANA W CAD 02/23/2020. INDICATIONS: Screening mammography Calculator Name NCI Breast Cancer Risk Assessment Tool 5 Year Breast Cancer Risk 1.40% Lifetime Breast Cancer Risk 4.20% Personal Breast Cancer No Personal Ovarian Cancer No Treatments None Family Cancers Father with throat cancer at age 75. LOCATION: [facility] BREAST COMPOSITION: Almost entirely fatty. FINDINGS: DIAGNOSTIC CATEGORY 1--NEGATIVE NO CHANGE FROM COMPARISON ASSESSMENT. Scattered benign-appearing calcifications are present. Scattered benign-appearing lymph nodes are present. RIGHT BREAST: No significant suspicious finding. LEFT BREAST: No significant suspicious finding. RECOMMENDATIONS: ROUTINE MAMMOGRAM AND CLINICAL EVALUATION IN 12 MONTHS. PLEASE NOTE: A NORMAL MAMMOGRAM DOES NOT EXCLUDE THE POSSIBILITY OF BREAST CANCER. A CLINICALLY SUSPICIOUS PALPABLE LUMP SHOULD BE BIOPSIED. Dictated by: Jimmy Downs MD on 07/22/2021 at 13:55 Approved by: Jimmy Downs MD on 07/22/2021 at 14:10 Procedure Note CONVERSION, GENERIC - 03/23/2023 PERFORMED AT [facility] LOCATION:[place] [address] Patient: HOLLI Woody Exam Date: 07/22/2021 : 1950 Gender:F Ordering : DR WILL ALVAREZ . Admission #: [id number] Family : Order #: [id number] CLICK HERE TO VIEW EXAM RADIOLOGY REPORT PROCEDURE: MAMMOGRAM SCREENING 3D BILATERAL CAD COMPARISON: MG MAMM SCREEN ANA W CAD 01/25/2018. MG MAMM SCREEN ANA W CAD 02/23/2020. INDICATIONS: Screening mammography Calculator Name NCI Breast Cancer Risk Assessment Tool 5 Year Breast Cancer Risk 1.40% Lifetime Breast Cancer Risk 4.20% Personal Breast Cancer No Personal Ovarian Cancer No Treatments None Family Cancers Father with throat cancer at age 75. LOCATION: [facility] BREAST COMPOSITION: Almost entirely fatty. FINDINGS: DIAGNOSTIC CATEGORY 1--NEGATIVE NO CHANGE FROM COMPARISON ASSESSMENT. Scattered benign-appearing calcifications are present. Scattered benign-appearing lymph nodes are present. RIGHT BREAST: No significant suspicious finding. LEFT BREAST: No significant suspicious finding. RECOMMENDATIONS: ROUTINE MAMMOGRAM AND CLINICAL EVALUATION IN 12 MONTHS. PLEASE NOTE: A NORMAL MAMMOGRAM DOES NOT EXCLUDE THE POSSIBILITY OFBREAST CANCER. A CLINICALLY SUSPICIOUS PALPABLE LUMP SHOULD BE BIOPSIED. 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
--- OUTSIDE RECORDS SUMMARY | 2025-02-18 13:22 | XMS_ITS | Encounter Summary ---
Author Organization [facility] Address [address] [place] [address] Care Team Providers Care Excelsior Machine Feeder Name Role Phone Will Alvarez MD Unavailable Jeet Aguirre MD Unavailable Osei Arevalo DPM Unavailable Will Alvarez MD Primary Care Provider [phone] Encounter Details Date Type Department Care Team (Late st Contact Info) Description 02/11/2025 Bamboo flowsheet [facility] [address] [place] [address] Osei Arevalo, DPM [address] [place], [place] [address] Social History Tobacco Use Types Packs/Day Years Used Date Smoking Tobacco: Every Day Cigarettes Comments:6-10 cigs/day Alcohol Use Standard Drinks/Week Comments [...] 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 Not on file documented as of this encounter Plan of Treatment Upcoming Encounters Date Type Department Care Team (Late st Contact Info) Description 05/19/2025 3:00 PM EDT Procedure Visit [facility] [address] [facility] [address] Osei Arevalo DPM [address] [place], [place] [address] documented as of this encounter Visit Diagnoses Not on filedocumented in this encounter Additional Health Concerns Assessment Noted Time PHQ-9 Depression Total Score: 5 02/03/20 9:00 AM EDT documented as of this encounter Care Teams Excelsior Machine Feeder Relationship Specialty Start Date End Date Will Alvarez MD [address] [place] [address] [address] PCP - ACO Reach 02/08/23 Will Alvarez MD [address] [address] PCP - General Family Medicine 02/10/25 Jeet Aguirre MD [address] [facility] Professional building [address] [place] [phone] Referring Physician Rheumatology 10/25/23 Osei Arevalo DPM [address] [place], [place] [address] Referring Physician Podiatry 10/25/23 documented as of this encounter
--- OUTSIDE RECORDS SUMMARY | 2025-02-18 13:22 | XMS_ITS | Encounter Summary ---
Author Organization [facility] Address [address] [place] [address] Care Team Providers Care Cnc Machine Operator Name Role Phone Will Alvarez MD Unavailable [phone] Slava Magana DO Unavailable [phone] Jeet Aguirre MD Unavailable [phone] Osei Arevalo DPM Unavailable [phone] Will Alvarez MD Primary Care Provider [phone] Encounter Details Date Type Department Care Team (Late st Contact Info) Description 07/09/2024 Orders Only [facility] [address] [place] [address] Will Alvarez MD [address] [place], [place] [address] Social History Tobacco Use Types Packs/Day Years Used Date Smoking Tobacco: Every Day Cigarettes Comments:6-10 cigs/day Alcohol Use Standard Drinks/Week Comments Not Currently 0 (1 standard drink = 0.6 oz pur e alcohol) caffeine: 2-3 cups per day PHQ-2 Answer Date Recorded Patient Health Questionnaire-2 Score 2 02/05/2024 Education Answer Date Recorded What is the [...] 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 Not on file documented as of this encounter Plan of Treatment Upcoming Encounters Date Type Department Care Team (Late st Contact Info) Description 05/19/2025 3:00 PM EDT Procedure Visit [facility] [address] [place] [address] Osei Arevalo DPKaleigh [address] [place], [place] [address] documented as of this encounter Procedures Procedure Name Priority Date/Time Associated Diagnosis Comments COLONOSCOPY Routine 07/02/2024 11:03 AM EDT documented in this encounter Results * Colonoscopy (07/02/2024 11:03 AM EDT) Anatomical Region Laterality Modality Endoscopy Will Alvarez MD ENDOSCOPY PROCEDURE ORDERABL ES Final Result documented in this encounter Visit Diagnoses Not on filedocumented in this encounter Additional Health Concerns Assessment Noted Time PHQ-9 Depression Total Score: 4 02/05/20 24 8:00 AM EDT documented as of this encounter Care Teams Cnc Machine Operator Relationship Specialty Start Date End Date Will Alvarez MD [address] [place] [facility] [address] [place] [address] PCP - ACO Reach 02/08/23 Will Alvarez MD [address] [facility] [address] [place] [address] (Fax) PCP - General Family Medicine 02/10/25 Slava Magana DO [address] [place] [address] Referring Physician Orthopaedic Surgery 10/25/23 Jeet Aguirre MD [address] Professional building 1 [place] [address] Referring Physician Rheumatology 2/8/24 Osei Arevalo DPM [address] [place] [address] Referring Physician Podiatry 10/25/23 documented as of this encounter
--- OUTSIDE RECORDS SUMMARY | 2025-02-18 13:22 | XMS_ITS | Encounter Summary ---
Author Organization [facility] Address [address] [place] [address] Care Team Providers Care Chart Collector Name Role Phone Will Alvarez MD Unavailable [phone] Slava Magana DO Unavailable [phone] Jeet Aguirre MD Unavailable [phone] Osei Arevalo DPM Unavailable [phone] Will Alvarez MD Primary Care Provider [phone] Encounter Details Date Type Department Care Team (Late st Contact Info) Description 10/30/2023 Abstract [facility] [address] [facility] [place] [address] Slava Magana, DO [address] [id number] Social History Tobacco Use Types Packs/Day Years Used Date Smoking Tobacco: Every Day Cigarettes Comments:6-10 cigs/day Alcohol Use Standard Drinks/Week Comments Not Currently 0 (1 standard drink = 0.6 oz pur e alcohol) caffeine: 2-3 cups per day PHQ-2 Answer Date Recorded Patient Health Questionnaire-2 Score 0 06/28/2023 Education Answer Date Recorded What is the [...] 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 Not on file documented as of this encounter Plan of Treatment Upcoming Encounters Date Type Department Care Team (Late st Contact Info) Description 05/19/2025 3:00 PM EDT Procedure Visit [facility] [address] [place] [address] Osei Arevalo DPM [address] [place], [place] [address] documented as of this encounter Visit Diagnoses Not on filedocumented in this encounter Care Teams Chart Collector Relationship Specialty Start Date End Date Will Alvarez MD [address] [place] [address] PCP - ACO Reach 02/08/23 Will Alvarez MD [address] [place] [address] PCP - General Family Medicine 02/10/25 Slava Magana DO [address] [place] [address] Referring Physician Orthopaedic Surgery 10/25/23 Jeet [facility]re MD [facility] [address] [facility] [place] [address] Referring Physician Rheumatology 10/25/23 Osei Arevalo DPM [address] [place], [place] [address] Referring Physician Podiatry 10/25/23 documented as of this encounter
--- OUTSIDE RECORDS SUMMARY | 2025-02-18 13:22 | XMS_ITS | Encounter Summary ---
Author Organization [facility] Address [address] [place] [address] Care Team Providers Care Bathhouse Attendant Name Role Phone Will Alvarez MD Unavailable [phone] Slava Magana DO Unavailable [phone] Jeet Aguirre MD Unavailable Osei Arevalo DPM Unavailable [phone] Will Alvarez MD Primary Care Provider [phone] Encounter Details Date Type Department Care Team (Late st Contact Info) Description 08/07/2023 Abstract [facility] [address] [place] [address] Joshua Rincon MD [address] [facility] [place] [address] Social History Tobacco Use Types Packs/Day Years Used Date Smoking Tobacco: Every Day Cigarettes Alcohol Use Standard Drinks/Week Comments Not Currently [...] 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 file documented as of this encounter Plan of Treatment Upcoming Encounters Date Type Department Care Team (Late st Contact Info) Description 05/19/2025 3:00 PM EDT Procedure Visit [facility] [address] [place] [address] Osei Arevalo DPM [address] [place], [place] [address] documented as of this encounter Visit Diagnoses Not on filedocumented in this encounter Care Teams Bathhouse Attendant Relationship Specialty Start Date End Date Will Alvarez MD [address] [place] [address] PCP - ACO Reach 02/08/23 Will Alvarez MD [address] [place] [address] PCP - General Family Medicine 02/10/25 Slava Magana DO [address] [place] [address] Referring Physician Orthopaedic Surgery 10/25/23 Jeet Aguirre MD [address] Professional building 1 [place] [address] Referring Physician Rheumatology 10/25/23 Osei Arevalo DPM [address] [place], [place] [address] Referring Physician Podiatry 10/25/23 documented as of this encounter
--- OUTSIDE RECORDS SUMMARY | 2025-02-18 13:22 | XMS_ITS | Encounter Summary ---
Author Organization [facility] Address [address] [place] [address] Care Team Providers Care Mannequin Sander And Finisher Name Role Phone Will Alvarez MD Unavailable [phone] Slava Magana DO Unavailable [phone] Jeet Aguirre MD Unavailable Osei Arevalo DPM Unavailable [phone] Will Alvarez MD Primary Care Provider [phone] Encounter Details Date Type Department Care Team (Late st Contact Info) Description 05/11/2023 Orders Only [facility] [address] [place] [address] Will Alvarez MD [address] [address] Social History Tobacco Use Types Packs/Day Years Used Date Smoking Tobacco: Every Day Cigarettes Alcohol Use Standard Drinks/Week Comments Not Currently 0 (1 standard drink = 0.6 oz pur e alcohol) caffeine: 2-3 cups per day PHQ-2 Answer Date Recorded Patient Health Questionnaire-2 Score 0 03/13/2023 Education Answer Date Recorded What is the [...] 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 Not on file documented as of this encounter Plan of Treatment Upcoming Encounters Date Type Department Care Team (Late st Contact Info) Description 05/19/2025 3:00 PM EDT Procedure Visit [facility] [address] [place] [address] Osei Arevalo, DPM [address] [place], [place] [address] documented as of this encounter Procedures Procedure Name Priority Date/Time Associated Diagnosis Comments CBC Routine 05/02/2023 7:33 AM EDT HEMOGLOBIN A1C Routine 05/02/2023 7:33 AM EDT GLUCOSE Routine 05/02/2023 7:33 AM EDT BASIC METABOLIC PANEL Routine 05/02/2023 7:33 AM EDT ELECTROCARDIOGRAM REPORT Routine 023 7:30 AM EDT documented in this encounter Results * Basic metabolic panel (05/02/2023 7:33 AM EDT) Blood Venous blood specimen / Unknown us Will Alvarez MD LAB BLOOD ORDERABLES Final R esult * CBC (05/02/2023 7:33 AM EDT) Blood Venous blood specimen / Unknown Will Alvarez MD LAB BLOOD ORDERABLES Final R esult * Glucose, random (05/02/2023 7:33 AM EDT) Blood Venous blood specimen / Unknown us Will Alvarez MD LAB BLOOD ORDERABLES Final R esult * Hemoglobin A1c (05/02/2023 7:33 AM EDT) Blood Venous blood specimen / Unknown us Will Alvarez MD LAB BLOOD ORDERABLES Final R esult * Electrocardiogram Report (05/02/2023 7:30 AM EDT) Will Alvarez MD IN CLINIC/BEDSIDE ORDERABLES Final Result documented in this encounter Visit Diagnoses Not on filedocumented in this encounter Care Teams Mannequin Sander And Finisher Relationship Specialty Start Date End Date Will Alvarez MD [address] [place] [address] PCP - ACO Reach 02/08/23 Will Alvarez MD [address] [place] [address] PCP - General Family Medicine 02/10/25 Slava Magana DO [address] [place] [address] Referring Physician Orthopaedic Surgery 10/25/23 Jeet Aguirre MD [address] [facility] Professional building 1 [place] [address] Referring Physician Rheumatology 10/25/23 Osei Arevalo DPM [address] [place] [address] Referring Physician Podiatry 10/25/23 documented as of this encounter
--- OUTSIDE RECORDS SUMMARY | 2025-02-18 13:22 | XMS_ITS | Encounter Summary ---
Author Organization [facility] Address [address] [place] [address] Care Team Providers Care Environmental Protection Forester Name Role Phone Will Alvarez MD Unavailable [phone] Slava Magana DO Unavailable [phone] Jeet Aguirre MD Unavailable [phone] Osei Arevalo DPM Unavailable [phone] Will Alvarez MD Primary Care Provider [phone] Encounter Details Date Type Department Care Team (Late st Contact Info) Description 10/30/2023 Abstract [facility] [address] [facility] 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 Not on file documented as of this encounter Plan of Treatment Upcoming Encounters Date Type Department Care Team (Late st Contact Info) Description 05/19/2025 3:00 PM EDT Procedure Visit [facility] [address] [place] [address] Osei Arevalo DPM [address] [place], [place] [address] documented as of this encounter Visit Diagnoses Not on filedocumented in this encounter Care Teams Environmental Protection Forester Relationship Specialty Start Date End Date Will Alvarez MD [address] [place] [address] PCP - ACO Reach 02/08/23 Will Alvarez MD [address] [place] [address] PCP - General Family Medicine 02/10/25 Slava Magana DO [address] [place] [address] Referring Physician Orthopaedic Surgery 10/25/23 Jeet [facility]re MD [address] [facility] 1 [place] [address] Referring Physician Rheumatology 10/25/23 Osei Arevalo DPM [address] [place], [place] [address] Referring Physician Podiatry 10/25/23 documented as of this encounter
--- OUTSIDE RECORDS SUMMARY | 2025-02-18 13:22 | XMS_ITS | Encounter Summary ---
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 Problem list updated Chronic problem, defining an aspect the nephropathy, with significant risk, uncertain progression requiring longitudinal monitoring, and moderate decision making. Microalbuminuria describes a moderate increase in the level of urine albumin. Normally, the kidneysfilter albumin, so if the kidney leaks small amounts of albumin into the urine then it is a indicator of chronic kidney disease. Microalbuminuria is an independent indicator of increased cardiovascular risk among individuals andtherefore can be used for risk stratification for cardiovascular disease. documented in this encounter Plan of Treatment Upcoming Encounters Date Type Department Care Team (Late st Contact Info) Description 05/19/2025 3:00 PM EDT Procedure Visit [facility] [address] [place] [address] Osei Arevalo DPM [address] [place] [address] documented as of this encounter Visit Diagnoses Not on filedocumented in this encounter Additional Health Concerns Assessment Noted Time PHQ-9 Depression Total Score: 5 02/03/20 25 9:00 AM EDT documented as of this encounter Care Teams Equity Director Relationship Specialty Start Date End Date Will Alvarez MD [address] [address] PCP - ACO Reach 02/08/23 Will Alvarez MD [address] [address] PCP - General Family Medicine 02/10/25 Jeet [facility]irre MD [address] [facility] 1 [place] [address] Referring Physician Rheumatology 10/25/23 Osei Arevalo DPM [address] [place] [address] Referring Physician Podiatry 10/25/23 documented as of this encounter
--- OUTSIDE RECORDS SUMMARY | 2025-02-18 13:22 | XMS_ITS | Encounter Summary ---
Author Organization [facility] Address [address] [place] [address] Care Team Providers Care K [employer] Principal Name Role Phone Will Alvarez MD Unavailable [phone] Slava Magana DO Unavailable [phone] Jeet Aguirre MD Unavailable [phone] Osei Arevalo DPM Unavailable [phone] Will Alvarez MD Primary Care Provider [phone] Encounter Details Date Type Department Care Team (Late st Contact Info) Description 01/07/2025 Orders Only [facility] [address] [place] [address] Will Alvarez MD [address] [place], [place] [address] Social History Tobacco Use Types Packs/Day Years [...] 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 Not on file documented as of this encounter Plan of Treatment Upcoming Encounters Date Type Department Care Team (Late st Contact Info) Description 05/19/2025 3:00 PM EDT Procedure Visit [facility] [address] [place] [address] Osei Arevalo DPM [address] [place] [address] documented as of this encounter Visit Diagnoses Not on filedocumented in this encounter Additional Health Concerns Assessment Noted Time PHQ-9 Depression Total Score: 4 02/05/20 24 8:00 AM EDT documented as of this encounter Care Teams K 8 School Principal Relationship Specialty Start Date End Date Will Alvarez MD [address] [place] [address] PCP - ACO Reach 02/08/23 Will Alvarez MD [address] [place] [address] PCP - General Family Medicine 02/10/25 Slava Magana DO [address] [place] [address] Referring Physician Orthopaedic Surgery 10/25/23 Jeet Aguirre MD [address] [facility] Professional building 1 [place] [address] Referring Physician Rheumatology 10/25/23 Osei Arevalo DPM [address] [place], [place] [address] Referring Physician Podiatry 10/25/23 documented as of this encounter
--- OUTSIDE RECORDS SUMMARY | 2025-02-18 13:22 | XMS_ITS | Encounter Summary ---
Author Organization [facility] Address [address] [place] [address] Care Team Providers Care Weatherization Field Technician Name Role Phone Will Alvarez MD Unavailable [phone] Slava Magana DO Unavailable [phone] Jeet Aguirre MD Unavailable [phone] Osei Arevalo DPM Unavailable [phone] Will Alvarez MD Primary Care Provider [phone] Encounter Details Date Type Department Care Team (Late st Contact Info) Description 02/20/2023 Abstract [facility] [address] [place] [address] Osei Arevalo, DPM [address] [place], [place] [address] Social History Tobacco Use Types Packs/Day Years Used Date Smoking Tobacco: Every Day Cigarettes Tobacco Cessation:Ready to Q uit: Not Asked; Counseling Given: Not Answered Alcohol Use Standard Drinks/Week Comments Not Currently 0 (1 standard drink = 0.6 oz pur e alcohol) caffeine: 2-3 cups per day PHQ-2 Answer Date Recorded Patient Health Questionnaire-2 Score 0 02/13/2023 Education Answer Date Recorded What is the highest level of school you have completed or the highest degree you have received? 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 No / Unsure 02/13/2023 2:33 PM EDT documented as of this encounter Plan of Treatment Upcoming Encounters Date Type Department Care Team (Late st Contact Info) Description 05/19/2025 3:00 PM EDT Procedure Visit [facility] [address] [place] [address] Osei Arevalo DPM [address] [place], [place] [address] documented as of this encounter Visit Diagnoses Not on filedocumented in this encounter Care Teams Weatherization Field Technician Relationship Specialty Start Date End Date Will Alvarez MD [address] [facility] 100 [place] [address] PCP - ACO Reach 02/08/23 Will Alvarez MD [address] [facility] 100 [place] [address] PCP - General Family Medicine 02/10/25 Slava Magana DO [address] [place] [address] Referring Physician Orthopaedic Surgery 10/25/23 Jeet Aguirre MD [address] [facility] Professional building 1 [place] [address] Referring Physician Rheumatology 10/25/23 Osei Arevalo DPM [address] [place], [place] [address] Referring Physician Podiatry 10/25/23 documented as of this encounter
--- OUTSIDE RECORDS SUMMARY | 2025-02-18 13:22 | XMS_ITS | Encounter Summary ---
Author Organization [facility] Address [address] [place] [address] Care Team Providers Care Fence Machine Operator Name Role Phone Will Alvarez MD Unavailable [phone] Slava Magana DO Unavailable [phone] Jeet Aguirre MD Unavailable [phone] Osei Arevalo DPM Unavailable [phone] Will Alvarez MD Primary Care Provider [phone] Reason for Visit * Reason Comments Med Refill Encounter Details Date Type Department Care Team (Late st Contact Info) Description 05/01/2024 Refill [facility] [address] [id number] Linda Perez NP Social History Tobacco Use Types Packs/Day Years [...] 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 Not on file documented as of this encounter Plan of Treatment Upcoming Encounters Date Type Department Care Team (Late st Contact Info) Description 05/19/2025 3:00 PM EDT Procedure Visit [facility] [address] [place] [address] Osei Arevalo DPM [address] [place], [place] [address] documented as of this encounter Visit Diagnoses Not on filedocumented in this encounter Additional Health Concerns Assessment Noted Time PHQ-9 Depression Total Score: 4 02/05/20 24 8:00 AM EDT documented as of this encounter Care Teams Fence Machine Operator Relationship Specialty Start Date End Date Will Alvarez MD [address] [place] [address] PCP - ACO Reach 02/08/23 Will Alvarez MD [address] [place] [address] PCP - General Family Medicine 02/10/25 Slava Magana DO [address] [place] [address] Referring Physician Orthopaedic Surgery 10/25/23 Jeet Aguirre MD [address] [facility] Professional building 1 [place] [address] Referring Physician Rheumatology 10/25/23 Osei Arevalo DPM [address] [place], [place] [address] Referring Physician Podiatry 10/25/23 documented as of this encounter
--- OUTSIDE RECORDS SUMMARY | 2025-02-18 13:22 | XMS_ITS | Encounter Summary ---
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 [place] [address] Osei Arevalo DPM [address] [place], [place] [address] documented as of this encounter Procedures Procedure Name Priority Date/Time Associated Diagnosis Comments ELECTROCARDIOGRAM REPORT Routine 9:07 AM EST documented in this encounter Results * Electrocardiogram Report (10/04/2023 9:07 AM EST) Will Alvarez MD IN CLINIC/BEDSIDE ORDERABLES Final Result documented in this encounter Visit Diagnoses Not on filedocumented in this encounter Care Teams National Van Owner Operator Relationship Specialty Start Date End Date Will Alvarez MD 112 [facility] 100 [place] [address] PCP - ACO Reach 02/08/23 Will Alvarez MD 112 [facility] 100 [place] [address] PCP - General Family Medicine 02/10/25 Slava Magana DO 112 [facility] 150 [place] [address] Referring Physician Orthopaedic Surgery 10/25/23 Jeet Aguirre MD [address] [facility] Professional building [address] [place] [address] Referring Physician Rheumatology 10/25/23 Osei Arevalo DPM [address] [place] [address] Referring Physician Podiatry 10/25/23 documented as of this encounter
--- OUTSIDE RECORDS SUMMARY | 2025-02-18 13:22 | XMS_ITS | Encounter Summary ---
Author Organization [facility] Address [address] [place] [address] Care Team Providers Care Gameplay Programmer Name Role Phone Will Alvarez MD Unavailable [phone] Slava Magana DO Unavailable [phone] Jeet Aguirre MD Unavailable [phone] Osei Arevalo DPM Unavailable [phone] Will Alvarez MD Primary Care Provider + [phone] Encounter Details Date Type Department Care Team (Late st Contact Info) Description 12/11/2023 Orders Only [facility] [address] [place] [address] Slava Magana, DO [address] [place] [address] Social History Tobacco Use Types Packs/Day Years [...] 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 file Not on file documented as of this encounter Plan of Treatment Upcoming Encounters Date Type Department Care Team (Late st Contact Info) Description 05/19/2025 3:00 PM EDT Procedure Visit [facility] [address] [place] [address] Osei Arevalo DPM [address] [place] [address] documented as of this encounter Procedures Procedure Name Priority Date/Time Associated Diagnosis Comments WOUND CULTURE Routine 12/11/2023 10:50 AM EDT documented in this encounter Results * WOUND CULTURE (12/11/2023 10:50 AM EDT) Slava Magana DO LAB BLOOD ORDERABLES Final Result documented in this encounter Visit Diagnoses Not on filedocumented in this encounter Care Teams Gameplay Programmer Relationship Specialty Start Date End Date Will Alvarez MD 112 [facility] 100 [place] [address] PCP - ACO Reach 02/08/23 Will Alvarez MD 112 [facility] 100 [place] [address] PCP - General Family Medicine 02/10/25 Slava Magana DO 112 [facility] 150 [place] [address] Referring Physician Orthopaedic Surgery 10/25/23 Jeet Aguirre MD [address] [facility] Professional building 1 [place] [address] Referring Physician Rheumatology 10/25/23 Osei Arevalo DPM [address] [place] [address] Referring Physician Podiatry 10/25/23 documented as of this encounter
--- OUTSIDE RECORDS SUMMARY | 2025-02-18 13:22 | XMS_ITS | Encounter Summary ---
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 Not on file documented as of this encounter Plan of Treatment Upcoming Encounters Date Type Department Care Team ( Contact Info) Description 05/19/2025 3:00 PM EDT Procedure Visit [facility] [address] [place] [address] Osei Arevalo DPM [address] [place] [address] documented as of this encounter Visit Diagnoses Not on filedocumented in this encounter Additional Health Concerns Assessment Noted Time PHQ-9 Depression Total Score: 5 02/03/20 25 9:00 AM EDT documented as of this encounter Care Teams Associate Application Developer Relationship Specialty Start Date End Date Will Alvarez MD [address] [place] [address] PCP - ACO Reach 02/08/23 Will Alvarez MD [address] [address] PCP - General Family Medicine 02/10/25 Jeet Aguirre MD [address] [facility] Professional building 1 [place] [address] Referring Physician Rheumatology 10/25/23 Osei Arevalo DPM [address] [place] [address] Referring Physician Podiatry 10/25/23 documented as of this encounter
--- OUTSIDE RECORDS SUMMARY | 2025-02-18 13:22 | XMS_ITS | Encounter Summary ---
Author Organization [employer] s tem Address [id number] [address] [place] [address] Care Team Providers Care Tenter Feeder Name Role Phone Will Alvarez MD Primary Care Provider + [phone] Encounter Details Date Type Department Care Team (Late st Contact Info) Description 01/29/2023 Orders Only [facility] [address] [place] [address] Susan Ramirez, JEAN-CLAUDE Left rotator cuff tear arthropathy; Glenohumeral arthritis, left; Left arm pain Social History Tobacco Use Types Packs/Day Years Used Date Smoking Tobacco: Every Day Cigarettes 0.5 42 Smokeless Tobacco: Never Alcohol Use Standard Drinks/Week Comments Never 0 (1 standard drink = 0.6 oz pur e alcohol) AUDIT-C Answer Date Recorded Q1: How often do you have a drink containing alc ohol? Never 10/20/2020 Average Number of Drinks Not on file 021 Frequency of Binge Drinking Not on file 11/2020 PHQ-2 Answer Date Recorded Total Score 0 11/10/2020 Childcare Answer Date Recorded Do problems getting child ca re make it difficult for you to work or study? No 11/10/2020 Employment Answer Date Recorded Do you need help finding a steward [facility] care system career center and/or a training program? No 11/10/2020 Purpose - Life Answer Date Recorded I have a purpose and direction in my life. Agree 11/10/2020 Comments No Sex and Gender Information Value Date Recorded Sex Assigned at Not on file Legal Sex Female 11:53 AM EDT Gender Identity Not on file Sexual Orientation Not on file documented as of this encounter Plan of Treatment Not on file documented as of this encounter Procedures Procedure Name Priority Date/Time Associated Diagnosis Comments EMG WITH NCV Routine 01/25/2023 Left rotator cuff tear arthropathy Glenohumeral arthritis, left Left arm pain documented in this encounter Results * EMG With NCV (01/25/2023) 01/25/2023 us Joshua Rincon MD NEUROLOGY ORDERABLES Final Resul t MANUALLY TRANSCRIBED RESULTS documented in this encounter Visit Diagnoses Diagnosis Left rotator cuff tear arthropathy Glenohumeral arthritis, left Left arm pain Pain in soft tissues of limb documented in this encounter Additional Health Concerns Assessment Noted Time PHQ-9 Depression Total Score: 0 11/10/19 21 11:42 AM EST documented as of this encounter Care Teams Tenter Feeder Relationship Specialty Start Date End Date Will Alvarez MD PCP - General Family Medicine 10/20/20 documented as of this encounter
--- OUTSIDE RECORDS SUMMARY | 2025-02-18 13:22 | XMS_ITS | Encounter Summary ---
Author Organization [facility] Address [address] [place] [address] Care Team Providers Care Aluminizer Name Role Phone Will Alvarez MD Unavailable [phone] Slava Magana DO Unavailable [phone] Jeet Aguirre MD Unavailable [phone] Osei Arevalo DPM Unavailable [phone] Will Alvarez MD Primary Care Provider + [phone] Encounter Details Date Type Department Care Team (Late st Contact Info) Description 08/19/2024 Orders Only [facility] [address] [place] [address] Angie Early, OD [address] [facility] [place] [address] Social History Tobacco Use Types Packs/Day Years [...] 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 Not on file documented as of this encounter Plan of Treatment Upcoming Encounters Date Type Department Care Team (Late st Contact Info) Description 05/19/2025 3:00 PM EDT Procedure Visit [facility] [address] [facility] [place] [address] Osei Arevalo, DPKaleigh [address] [place], [place] [address] documented as of this encounter Procedures Procedure Name Priority Date/Time Associated Diagnosis Comments DIABETIC RETINOPATHY SCREENING - OU - BOTH EYES Routine 07/18/2024 10:02 AM EDT documented in this encounter Results * Diabetic Retinopathy Screening - OU - Both Eyes (07/18/2024 10:02 AM EDT) Anatomical Region Laterality Modality Head Other Angie Early OD OPHTH PHOTOGRAPHY Final Result documented in this encounter Visit Diagnoses Not on filedocumented in this encounter Additional Health Concerns Assessment Noted Time PHQ-9 Depression Total Score: 4 02/05/20 24 8:00 AM EDT documented as of this encounter Care Teams Aluminizer Relationship Specialty Start Date End Date Will Alvarez MD 112 [facility] 100 [place] [address] PCP - ACO Reach 02/08/23 Will Alvarez MD 112 [facility] 100 [place] [address] (Fax) PCP - General Family Medicine 02/10/25 Slava Magana DO 112 [facility] [address] 150 [place] [address] Referring Physician Orthopaedic Surgery 10/25/23 Jeet Aguirre MD [address] [facility] 1 [place] [address] Referring Physician Rheumatology 10/25/23 Osei Arevalo DPM [address] [place] [id number] Referring Physician Podiatry 10/25/23 documented as of this encounter
--- OUTSIDE RECORDS SUMMARY | 2025-02-18 13:22 | XMS_ITS | Encounter Summary ---
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 Not on file documented as of this encounter Plan of Treatment Upcoming Encounters Date Type Department Care Team (Late st Contact Info) Description 05/19/2025 3:00 PM EDT Procedure Visit [facility] [address] [place] [address] Osei Arevalo DPM [address] [place], [place] [address] documented as of this encounter Visit Diagnoses Not on filedocumented in this encounter Care Teams Document Coordinator Relationship Specialty Start Date End Date Will Alvarez MD [address] [place] [address] PCP - ACO Reach 02/08/23 Will Alvarez MD [address] [place] [address] PCP - General Family Medicine 02/10/25 Slava Magana DO [address] 150 [place] [address] Referring Physician Orthopaedic Surgery 10/25/23 Jeet Aguirre MD [address] [facility] Professional building 1 [place] [address] Referring Physician Rheumatology 10/25/23 Osei Arevalo DPM [address] [place], [place] [address] Referring Physician Podiatry 10/25/23 documented as of this encounter
--- OUTSIDE RECORDS SUMMARY | 2025-02-18 13:22 | XMS_ITS | Encounter Summary ---
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 [place] [address] Osei Arevalo DPM [address] [place], [place] [address] documented as of this encounter Visit Diagnoses Not on filedocumented in this encounter Care Teams Manager Logistic Relationship Specialty Start Date End Date Will Alvarez MD [address] [place] [address] PCP - ACO Reach 02/08/23 Will Alvarez MD [address] [place] [address] PCP - General Family Medicine 02/10/25 Slava Magana DO [address] [place] [address] Referring Physician Orthopaedic Surgery 10/25/23 Jeet Aguirre MD [address] [facility] Professional building 1 [place] [address] Referring Physician Rheumatology 10/25/23 Osei Arevalo DPM [address] [place], [place] [address] Referring Physician Podiatry 10/25/23 documented as of this encounter
--- OUTSIDE RECORDS SUMMARY | 2025-02-18 13:22 | XMS_ITS | Encounter Summary ---
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 Not on file documented as of this encounter Plan of Treatment Upcoming Encounters Date Type Department Care Team ( Contact Info) Description 05/19/2025 3:00 PM EDT Procedure Visit [facility] [address] [place] [address] Osei Arevalo DPM [address] [place] [address] documented as of this encounter Visit Diagnoses Not on filedocumented in this encounter Additional Health Concerns Assessment Noted Time PHQ-9 Depression Total Score: 5 02/03/20 25 9:00 AM EDT documented as of this encounter Care Teams Environmental Engineering Assistant Relationship Specialty Start Date End Date Will Alvarez MD [address] [place] [address] PCP - ACO Reach 02/08/23 Will Alvarez MD [address] [address] PCP - General Family Medicine 02/10/25 Jeet Aguirre MD [address] [facility] Professional building 1 [place] [address] Referring Physician Rheumatology 10/25/23 Osei Arevalo DPM [address] [place] [address] Referring Physician Podiatry 10/25/23 documented as of this encounter
--- OUTSIDE RECORDS SUMMARY | 2025-02-18 13:22 | XMS_ITS | Encounter Summary ---
Author Organization [facility] Address [address] [place] [address] Care Team Providers Care Childcare Worker Name Role Phone Will Alvarez MD Unavailable [phone] Slava Magana DO Unavailable [phone] Jeet Aguirre MD Unavailable [phone] Osei Arevalo DPM Unavailable [phone] Will Alvarez MD Primary Care Provider + [phone] Reason for Visit * Reason Comments Med Refill Encounter Details Date Type Department Care Team (Late st Contact Info) Description 04/16/2023 Refill [facility] [address] [phone] Linda Perez, GEAR LAPPER Presence of right artificial knee joint (Primary Dx) Social History Tobacco Use Types Packs/Day Years [...] 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 Not on file Not on file documented as of this encounter Plan of Treatment Upcoming Encounters Date Type Department Care Team (Late st Contact Info) Description 05/19/2025 3:00 PM EDT Procedure Visit [facility] [address] [place] [address] Osei Arevalo DPM [address] [place], [place] [address] documented as of this encounter Visit Diagnoses Diagnosis Presence of right artificial knee joint- Primary documented in this encounter Care Teams Childcare Worker Relationship Specialty Start Date End Date Will Alvarez MD [address] [place] [address] PCP - ACO Reach 02/08/23 Will Alvarez MD [address] [place] [address] PCP - General Family Medicine 02/10/25 Slava Magana DO [address] [place] [address] Referring Physician Orthopaedic Surgery 10/25/23 Jeet Aguirre MD [address] [place] Professional building 1 [place] [address] Referring Physician Rheumatology 10/25/23 Osei Arevalo DPM [address] [place], [place] [address] Referring Physician Podiatry 10/25/23 documented as of this encounter
--- OUTSIDE RECORDS SUMMARY | 2025-02-18 13:22 | XMS_ITS | Encounter Summary ---
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 [place] [address] Osei Arevalo DPM [address] [place], [place] [address] documented as of this encounter Visit Diagnoses Not on filedocumented in this encounter Care Teams Concession Supervisor Relationship Specialty Start Date End Date Will Alvarez MD [address] [place] [address] PCP - ACO Reach 02/08/23 Will Alvarez MD [address] [place] [address] PCP - General Family Medicine 02/10/25 Slava Magana DO [address] [place] [address] Referring Physician Orthopaedic Surgery 10/25/23 Jeet Aguirre MD [address] [facility] Professional building 1 [place] [address] Referring Physician Rheumatology 10/25/23 Osei Arevalo DPM [address] [place], [place] [address] Referring Physician Podiatry 10/25/23 documented as of this encounter
--- OUTSIDE RECORDS SUMMARY | 2025-02-18 13:22 | XMS_ITS | Encounter Summary ---
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 Not on file documented as of this encounter Plan of Treatment Upcoming Encounters Date Type Department Care Team (Late st Contact Info) Description 05/19/2025 3:00 PM EDT Procedure Visit [facility] [address] [place] [address] Osei Arevalo DPM [address] [place], [place] [address] documented as of this encounter Visit Diagnoses Not on filedocumented in this encounter Care Teams Senior Investigator Relationship Specialty Start Date End Date Will Alvarez MD [address] [place] [address] PCP - ACO Reach 02/08/23 Will Alvarez MD [address] [place] [address] PCP - General Family Medicine 02/10/25 Slava Magana DO [address] [place] [address] Referring Physician Orthopaedic Surgery 10/25/23 Jeet Aguirre MD [address] [facility] 1 [place] [address] Referring Physician Rheumatology 10/25/23 Osei Arevalo DPM [address] [place], [place] [address] Referring Physician Podiatry 10/25/23 documented as of this encounter
--- OUTSIDE RECORDS SUMMARY | 2025-02-18 13:22 | XMS_ITS | Encounter Summary ---
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 Not on file documented as of this encounter Plan of Treatment Upcoming Encounters Date Type Department Care Team (Late st Contact Info) Description 05/19/2025 3:00 PM EDT Procedure Visit [facility] [address] [place] [address] Osei Arevalo DPM [address] [place], [place] [address] documented as of this encounter Visit Diagnoses Not on filedocumented in this encounter Care Teams Longshore Equipment Operator Relationship Specialty Start Date End Date Will Alvarez MD [address] [place] [address] PCP - ACO Reach 02/08/23 Will Alvarez MD [address] [place] [address] PCP - General Family Medicine 02/10/25 Slava Magana DO [address] [place] [address] Referring Physician Orthopaedic Surgery 10/25/23 Jeet Aguirre MD [address] [facility] Professional building 1 [place] [address] Referring Physician Rheumatology 10/25/23 Osei Arevalo DPM [address] [place], [place] [address] Referring Physician Podiatry 10/25/23 documented as of this encounter
--- OUTSIDE RECORDS SUMMARY | 2025-02-18 13:22 | XMS_ITS | Clinical Summary ---
Author Organization [facility] Address [address] [place] [address] Phone Care Team Providers Care Patent Legal Assistant Name Role Phone Unavailable Primary Care Provider Unavailabl e Social History Tobacco Use Types Packs/Day Years Used Date Smoking Tobacco: Never Assessed Comments Unknown Sex and Gender Information Value Date Recorded Sex Assigned at Not on file Legal Sex Female 8:11 PM EST Gender Identity Not on file Sexual Orientation Not on file Plan of Treatment Not on file
--- OUTSIDE RECORDS SUMMARY | 2025-02-18 13:23 | XMS_ITS | Patient Health Record ---
Author Organization [facility] in [place] Address [address] [place] [address] Care Team Providers Care Inside Account Executive Name Role Phone None, Unknown or Primary Care Provider Unavailab le Reason For Referral No Information Plan Of Treatment No Information Insurance Providers Payer Name Payer Address Payer Phone Subscriber Number Group Number Insured Name Patient Relationship to Insured Coverage Start Date Coverage End Date [place] [address] [place] [address] [id number] Neha Blanc Self - patient is the insured 7 [employer] 8 MEDICARE SUPP CLAIM DEPT [id number] [place] [address] [id number] Neha Blanc Self - patient is the insured 7
--- OUTSIDE RECORDS SUMMARY | 2025-02-18 13:23 | XMS_ITS | Encounter Summary ---
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 Not on file documented as of this encounter Plan of Treatment Upcoming Encounters Date Type Department Care Team (Late st Contact Info) Description 05/19/2025 3:00 PM EDT Procedure Visit [facility] [address] [facility] [place] [address] Osei Arevalo, DPKaleigh [address] [place], [place] [id number] documented as of this encounter Procedures Procedure Name Priority Date/Time Associated Diagnosis Comments URINALYSIS, COMPLETE Routine 07/05/2023 11:15 AM EDT SED RATE BY MODIFIED WESTERGREN Routine 07/05/2023 11:15 AM EDT CBC (INCLUDES DIFF/PLT) Routine 07/05/20 11:15 AM EDT C-REACTIVE PROTEIN Routine 07/05/2023 11 :15 AM EDT COMPREHENSIVE METABOLIC PANEL Routine 07/05/2023 11:15 AM EDT documented in this encounter Results * Comprehensive metabolic panel (07/05/2023 11:15 AM EDT) Blood Venous blood specimen / Unknown Jeet Aguirre MD LAB BLOOD ORDERABLES Final R esult * Sedimentation rate, automated (07/05/2023 11:15 AM EDT) Blood Venous blood specimen / Unknown Jeet Aguirre MD LAB BLOOD ORDERABLES Final R esult * CBC and differential (07/05/2023 11:15 AM EDT) Blood Venous blood specimen / Unknown Jeet Aguirre MD LAB BLOOD ORDERABLES Final R esult * Urinalysis with microscopic (07/05/2023 11:15 AM EDT) Urine Urine specimen obtained by clean catch procedure / Unknown us Jeet Aguirre MD LAB URINE ORDERABLES Final R esult * C-reactive protein (07/05/2023 11:15 AM EDT) Blood Venous blood specimen / Unknown us Jeet Aguirre MD LAB BLOOD ORDERABLES Final R esult documented in this encounter Visit Diagnoses Not on filedocumented in this encounter Care Teams Lpn Cma Relationship Specialty Start Date End Date Will Alvarez MD [address] [place] [address] PCP - ACO Reach 02/08/23 Will Alvarez MD [address] [place] [address] PCP - General Family Medicine 02/10/25 Slava Magana DO [address] [place] [address] Referring Physician Orthopaedic Surgery 10/25/23 Jeet Aguirre MD [address] [facility] Professional building 1 [place] [address] Referring Physician Rheumatology 10/25/23 Osei Arevalo DPM [address] [place] [address] Referring Physician Podiatry 10/25/23 documented as of this encounter
--- OUTSIDE RECORDS SUMMARY | 2025-02-18 13:23 | XMS_ITS | Encounter Summary ---
Author Organization [facility] Address [address] [place] [address] Care Team Providers Care Ethylene Plant Helper Name Role Phone Will Alvarez MD Unavailable Slava Magana DO Unavailable [phone] Jeet Aguirre MD Unavailable Osei Arevalo DPM Unavailable [phone] Will Alvarez MD Primary Care Provider [phone] Encounter Details Date Type Department Care Team (Late st Contact Info) Description 09/26/2023 Orders Only [facility] [address] [place] [address] Jeet Aguirre MD [address] [facility] Professional building 1 [place] [address] Social History Tobacco Use Types [...] 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 Not on file documented as of this encounter Plan of Treatment Upcoming Encounters Date Type Department Care Team (Late st Contact Info) Description 05/19/2025 3:00 PM EDT Procedure Visit [facility] [address] [place] [address] Osei Arevalo, DPM [address] [place], [place] [address] documented as of this encounter Procedures Procedure Name Priority Date/Time Associated Diagnosis Comments URINALYSIS, COMPLETE Routine 09/25/2023 12:22 PM EST COMPREHENSIVE METABOLIC PANEL Routine 09/25/2023 12:22 PM EST documented in this encounter Results * Comprehensive metabolic panel (09/25/2023 12:22 PM EST) Blood Venous blood specimen / Unknown Jeet Aguirre MD LAB BLOOD ORDERABLES Final R esult * Urinalysis with microscopic (09/25/2023 12:22 PM EST) Urine Urine specimen obtained by clean catch procedure / Unknown Jeet Aguirre MD LAB URINE ORDERABLES Final R esult documented in this encounter Visit Diagnoses Not on filedocumented in this encounter Care Teams Ethylene Plant Helper Relationship Specialty Start Date End Date Will Alvarez MD [address] [facility] [address] [place] [address] (Fax) PCP - ACO Reach 02/08/23 Will Alvarez MD [address] [facility] [address] [place] [address] (Fax) PCP - General Family Medicine 02/10/25 Slava Magana DO [address] [place] [address] Referring Physician Orthopaedic Surgery 10/25/23 Jeet [facility]re MD [address] [facility] [address] [place] [phone] Referring Physician Rheumatology 10/25/23 Osei Arevalo DPM [address] [place] [address] Referring Physician Podiatry 10/25/23 documented as of this encounter
--- NOTE | 2025-02-18 13:50 | P.CN_ITS ---
Consult Note: HPI Data of Consult Patient: new to practice Requesting Physician: Selena Hernandez NP Primary Care Provider: LULI TIM Consult Narrative Reason for consult: RLE pain/low back pain Narrative: Neha Blanc a pleasant 74 year old female presents for evaluation of RLE pain and weakness as well as low back pain. Pt has longstanding hx of low back pain, however in November of 2024 she noticed increased pain as well as numbness tingling and weakness of RLE without cause or injury. PCP Dr Tim was able to update emg which revealed chronic L5/S1 radiculopathy. Pain 0/10 increasing to 7/10 with standing, walking, bending, activity. Pain improved with sitting, lying, forward flexion, and sleeping. pt denies fall/injury. no prior lumbar surgery. she failed to benefit from 5 weeks of PT at [facility] in [place] as of 12/09. continues to engage in HEP as tolerated. currently utilizing duloxetine, tylenol, and nabumetone with mild relief. follows with rheumatology for RA. cc:: CC: Selena Hernandez NP Review of Systems ROS Status of ROS 10 or more systems reviewed and unremark able except as noted in history and below PFSH PFSH Social History Little interest or pleasure in doing things: not at all Feeling down, depressed, or hopeless: not at all Meds Home Medications and Allergies Home Medications ?Medication ?Instructions ?Recorded ?Confirmed ?Type methylprednisolone 4 mg tablets in 4 mg PO DAILY #21 e a 06/27/24 Rx a dose pack (Medrol ([place]andon)) Allergies Allergy/AdvReac Type Severity Reaction Status Date / Time clindamycin Allergy Severe Rash Verified 06/27/24 17:12 hydroxychloroquine (From Allergy Severe Rash Verified 06/27/24 17:12 Plaquenil) Exam Constitutional Documenting provider has reviewed patient's vital signs: yes Common normals: no apparent distress, oriented x3, healthy appearing, alert and well nourished General appearance: cooperative HENMT Common normals: normocephalic, hearing grossly normal bilaterally and moist oral mucous membranes Head and scalp: normocephalic Eye Common normals: PERRL Pupil: PERRL Neck & C-Spine Common normals: full ROM General: normal visual inspection Chest Common normals: inspection of chest normal Respiratory Common normals: normal respiratory effort, no retractions and no use of acce ssory muscles Back & Pelvis Lumbar spine/lower back: ROM limited, pain with ROM and straight leg raise positive right Other: decreased sensation to right L4,5,s1 notable tenderness l3-l5 facets, positive facet loading strength 3.5/5 in RLE and 5/5 in LLE Neuro Common normals: oriented x3 Sensorium/orientation: alert Psych Common normals: mental status grossly normal, thought process normal, cooperative, affect normal, speech normal and activity/motor behavior normal Speech: normal speech Thought process: normal thought process Results Additional Findings Additional findings: If on a controlled substance or opioids, I have checked an OARRS report on this patient and there are no aberrancies noted in the prescribing history.??If on a controlled substance or opioid a drug screen was completed and reviewed within the last year, and if there has not been a drug screen completed we ordered one today to monitor higher risk, state monitored pain medication use. As part of providing excellent, safe, comprehensive care, the following was completed at our patient's visit: 1. A medication reconciliation and review to ensure accurate knowledge of current/active medications, including asking our patients to inform us about any jaux-rau-wereoua medications or herbal remedies/nutritional supplements/alternative remedies. 2. A review to specifically ensure our patients have had annual screening for screening for depression, screening for tobacco use, and screening for unhealthy alcohol use. For concerning screenings had a discussion with the patient, provided patient education, and recommended follow-up with primary care provider when appropriate. If patient noted with a risk of falling, they received education on strength, gait, and balance training to prevent future risk of falling. Portions of this note may have been carried over from the previous visit and updated as appropriate. Please note this office utilizes paper charting in addition to the electronic medical record. A list of current medications, vitals, and PMH is available there as the clinical staff outside of myself do not have access to [employer] charting during the clinic day operations. As part of providing quality comprehensive care the current medications, vitals, and PMH were reviewed in the paper chart. Assessment and Plan Assessment and Plan (1) Lumbar stenosis with neurogenic claudication: (2) Lumbar radiculopathy: Plan 74 year old female with chronic low back and RLE worsening over the last 3 months presents for evaluation. will start gabapentin 100mg TID as tolerated, risks vs benefits reviewed. update lumbar MRI without contrast to assess lumbar stenosis with NC, lumbar radiculopathy, and RLE weakness. will f/u to review lumbar MRI and discuss ESIs.
== END 2025-02-18 13:20 | disposition home or self-care (01) ==
PROVIDERS: PCP Family Medicine; Visit Provider Nurse Practitioner
DX: M48.062 Spinal stenosis, lumbar region with neurogenic claudication (principal); M54.16 Radiculopathy, lumbar region
CPT/HCPCS: G0463

== ENCOUNTER 2025-02-27 13:24 | Outpatient (OUT) | payer MEDICARE, OTHER, SELFPAY ==
--- OUTSIDE RECORDS SUMMARY | 2025-02-27 13:25 | XMS_ITS | Encounter Summary ---
Author Organization [facility] Address [address] [place] [address] Care Team Providers Care Bilingual Branch Manager Name Role Phone Will Alvarez MD Unavailable [phone] Slava Magana DO Unavailable [phone] Jeet Aguirre MD Unavailable [phone] Osei Arevalo DPM Unavailable [phone] Will Alvarez MD Primary Care Provider [phone] Encounter Details Date Type Department Care Team (Late st Contact Info) Description 01/07/2025 Orders Only [facility] [address] [place] [address] Will Alvarez MD 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 Not on file documented as of this encounter Plan of Treatment Upcoming Encounters Date Type Department Care Team (Late st Contact Info) Description 05/19/2025 3:00 PM EDT Procedure Visit [facility] [address] [place] [address] Osei Arevalo DPM [address] [place] [address] documented as of this encounter Visit Diagnoses Not on filedocumented in this encounter Additional Health Concerns Assessment Noted Time PHQ-9 Depression Total Score: 4 02/05/20 24 8:00 AM EDT documented as of this encounter Care Teams Bilingual Branch Manager Relationship Specialty Start Date End Date Will Alvarez MD [address] [place] [address] PCP - ACO Reach 02/08/23 Will Alvarez MD [address] [place] [address] PCP - General Family Medicine 02/10/25 Slava Magana DO [address] [place] [address] Referring Physician Orthopaedic Surgery 10/25/23 Jeet Aguirre MD [address] [facility] Professional building 1 [place] [address] Referring Physician Rheumatology 10/25/23 Osei Arevalo DPM [address] [place], [place] [id number] Referring Physician Podiatry 10/25/23 documented as of this encounter
--- OUTSIDE RECORDS SUMMARY | 2025-02-27 13:25 | XMS_ITS | Encounter Summary ---
Author Organization [facility] Address [address] [place] [address] Care Team Providers Care Sales Product Manager Name Role Phone Will Alvarez MD Unavailable [phone] Slava Magana DO Unavailable [phone] Jeet Aguirre MD Unavailable [phone] Osei Arevalo DPM Unavailable [phone] Will Alvarez MD Primary Care Provider [phone] Encounter Details Date Type Department Care Team (Late st Contact Info) Description 02/20/2023 Abstract [facility] [address] [place] [address] Osei Arevalo, DPM [address] [place], [place] [phone] Social History Tobacco Use Types Packs/Day Years [...] 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 Not [...] Procedure Visit [facility] [address] [place] [address] Osei Arevalo DPM [address] [place], [place] [address] documented as of this encounter Visit Diagnoses Not on filedocumented in this encounter Care Teams Sales Product Manager Relationship Specialty Start Date End Date Will Alvarez MD [address] [facility] 100 [place] [address] PCP - ACO Reach 02/08/23 Will Alvarez MD [address] [facility] 100 [place] [address] PCP - General Family Medicine 02/10/25 Slava Magana DO [address] [place] [address] Referring Physician Orthopaedic Surgery 10/25/23 Jeet Aguirre MD [address] [facility] Professional building 1 [place] [address] Referring Physician Rheumatology 10/25/23 Osei Arevalo DPM [address] [place], [place] [address] Referring Physician Podiatry 10/25/23 documented as of this encounter
--- OUTSIDE RECORDS SUMMARY | 2025-02-27 13:25 | XMS_ITS | Encounter Summary ---
Author Organization [facility] Address [address] [place] [address] Care Team Providers Care Nail Making Machine Setter Name Role Phone Will Alvarez MD Unavailable [phone] Slava Magana DO Unavailable [phone] Jeet Aguirre MD Unavailable [phone] Osei Arevalo DPM Unavailable [phone] Will Alvarez MD Primary Care Provider [phone] Reason for Visit * Reason Comments Med Refill Encounter Details Date Type Department Care Team (Late st Contact Info) Description 04/16/2023 Refill [facility] [address] [phone] Linda Perez, FASTENER SEWING MACHINE OPERATOR Presence of right artificial knee joint (Primary [...] 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 Not on file documented as of this encounter Plan of Treatment Upcoming Encounters Date Type Department Care Team (Late st Contact Info) Description 05/19/2025 3:00 PM EDT Procedure Visit [facility] [address] [place] [address] Osei Arevalo DPM [address] [place], [place] [address] documented as of this encounter Visit Diagnoses Diagnosis Presence of right artificial knee joint- Primary documented in this encounter Care Teams Nail Making Machine Setter Relationship Specialty Start Date End Date Will Alvarez MD [address] [place] [address] PCP - ACO Reach 02/08/23 Will Alvarez MD [address] [place] [address] PCP - General Family Medicine 02/10/25 Slava Magana DO [address] [place] [address] Referring Physician Orthopaedic Surgery 10/25/23 Jeet Aguirre MD [address] [facility] Professional building 1 [place] [address] Referring Physician Rheumatology 10/25/23 Osei Arevalo DPM [address] [place], [place] [address] Referring Physician Podiatry 10/25/23 documented as of this encounter
--- OUTSIDE RECORDS SUMMARY | 2025-02-27 13:25 | XMS_ITS | Encounter Summary ---
Author Organization [facility] Address [address] [place] [address] Care Team Providers Care Rn Production Name Role Phone Will Alvarez MD Unavailable [phone] Slava Magana DO Unavailable [phone] Jeet Aguirre MD Unavailable Osei Arevalo DPM Unavailable [phone] Will Alvarez MD Primary Care Provider [phone] Encounter Details Date Type Department Care Team (Late st Contact Info) Description 04/03/2023 Abstract [facility] [address] [place] [address] Will Alvarez MD [address] [address] Social History Tobacco Use Types [...] EDT Procedure Visit [facility] [address] [facility] [place] [address] Osei Arevalo DPM [address] [place], [place] [address] documented as of this encounter Visit Diagnoses Not on filedocumented in this encounter Care Teams Rn Production Relationship Specialty Start Date End Date Will Alvarez MD [address] [place] [address] PCP - ACO Reach 02/08/23 Will Alvarez MD [address] [place] [address] PCP - General Family Medicine 02/10/25 Slava Magana DO [address] [place] [address] Referring Physician Orthopaedic Surgery 10/25/23 Jeet Aguirre MD [address] [facility] Professional building 1 [place] [address] Referring Physician Rheumatology 10/25/23 Osei Arevalo DPM [address] [place], [place] [address] Referring Physician Podiatry 10/25/23 documented as of this encounter
--- OUTSIDE RECORDS SUMMARY | 2025-02-27 13:25 | XMS_ITS | Encounter Summary ---
Author Organization [facility] Address [address] [place] [address] Care Team Providers Care Aviation Maintenance Instructor Name Role Phone Will Alvarez MD Unavailable Slava Magana DO Unavailable [phone] Jeet Aguirre MD Unavailable Osei Arevalo DPM Unavailable [phone] Will Alvarez MD Primary Care Provider [phone] Encounter Details Date Type Department Care Team (Late st Contact Info) Description 10/30/2023 Abstract [facility] [address] [facility] [place] [address] Slava Magana, DO [address] [phone] Social History Tobacco Use Types Packs/Day Years [...] 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 file documented as of this encounter Plan of Treatment Upcoming Encounters Date Type Department Care Team (Late st Contact Info) Description 05/19/2025 3:00 PM EDT Procedure Visit [facility] [address] [place] [address] Osei Arevalo DPM [address] [place], [place] [address] documented as of this encounter Visit Diagnoses Not on filedocumented in this encounter Care Teams Aviation Maintenance Instructor Relationship Specialty Start Date End Date Will Alvarez MD [address] [place] [address] PCP - ACO Reach 02/08/23 Will Alvarez MD [address] [place] [address] PCP - General Family Medicine 02/10/25 Slava Magana DO [address] [place] [address] Referring Physician Orthopaedic Surgery 10/25/23 Jeet [facility]irre MD [address] [facility] [place] [address] Referring Physician Rheumatology 10/25/23 Osei Arevalo DPM [address] [place], [place] [address] Referring Physician Podiatry 10/25/23 documented as of this encounter
--- OUTSIDE RECORDS SUMMARY | 2025-02-27 13:25 | XMS_ITS | Encounter Summary ---
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 file documented as of this encounter Plan of Treatment Upcoming Encounters Date Type Department Care Team (Late st Contact Info) Description 05/19/2025 3:00 PM EDT Procedure Visit [facility] [address] [facility] [place] [address] Osei Arevalo DPM [address] [place], [place] [address] documented as of this encounter Visit Diagnoses Not on filedocumented in this encounter Care Teams Liquor Rectifier Relationship Specialty Start Date End Date Will Alvarez MD [address] [place] [address] PCP - ACO Reach 02/08/23 Will Alvarez MD [address] [place] [address] PCP - General Family Medicine 02/10/25 Slava Magana DO [address] [place] [address] Referring Physician Orthopaedic Surgery 10/25/23 Jeet Aguirre MD [address] [facility] Professional building 1 [place] [address] Referring Physician Rheumatology 10/25/23 Osei Arevalo DPM [address] [place], [place] [address] Referring Physician Podiatry 10/25/23 documented as of this encounter
--- OUTSIDE RECORDS SUMMARY | 2025-02-27 13:25 | XMS_ITS | Clinical Summary ---
Author Organization [employer] Address [id number] [address] [place] [address] Care Team Providers Care Automotive Parts Counter Associate Name Role Phone Will Alvarez MD Primary Care Provider + [phone] Allergies Active Allergy Reactions Criticality Noted Date Comments Levofloxacin Rash Low 05/02/2023 Hydroxychloroquine Rash Low 10/20/2020 Medications methotrexate 2.5 mg chemo tabletIndications :rheumatoid arthritis Take 1 tablet by mouth once a week 8 tabs every Sunday Indications: rheumatoid arthritis Active nlobhlxf-cvww-UU- calcium &mins (THERAGRAN-M) 9 mg iron-400 mcg [...] Recorded Do you need help finding a [email or web address] career center and/or a training program? No [...] Left [employer] Medical Devices Implanted Type Area Physician Assistant Device Identifier Shelf Expiration Date Model / Serial / Lot Bearing Hum 36mm Cmprh Std Shldr Prlng Rvrs - [id number] Implanted:Qty : 1 on 05/16/2023 by Joshua Rincon MD at [facility] Bearing Left: Shoulder [employer] [id number] 11/26/2027 [id number] / / [id number] Cmnt Bn Bio 40gm Rpl [id number] +[id number] - Sna - [id number] Implanted:Qty : 2 on 11/10/2020 by Slava Magana DO at [facility] Cement Right: Knee [employer] 09/16/2024 [id number] / NA / [id number] Cmpt Fem 5 Kn Rt Crcte Rtn - Sna - [id number] Implanted:Qty : 1 on 11/10/2020 by Slava Magana DO at [facility] Orthopedic Implant Right: Knee [employer] 12/15/2028 [id number] / NA / [id number] Cmpt Ptlr 35mm Medialized Dome - Sna - [id number] Implanted:Qty : 1 on 11/10/2020 by Slava Magana DO at [facility] Orthopedic Implant Right: Knee [employer] 06/16/2025 [id number] / NA / [id number] Ins Tib 5 5mm Cr Fx Brng - Sna - [id number] Implanted:Qty : 1 on 11/10/2020 by Slava Magana DO at [facility] Orthopedic Implant Right: Knee ORTHOPAEDICS 07/17/2025 [id number] / NA / [id number] Impl Kn Fx Brng W Spcl Ins Construct Rpl [id number] - Sna - [id number] Implanted:Qty : 1 on 11/10/2020 by Slava Magana DO at [facility] Orthopedic Implant Right: Knee ORTHOPAEDICS [id number] / NA / NA Baseplate Krishna Cmprh Sm Shldr Aug Tpr Adpr - [id number] Implanted:Qty : 1 on 05/16/2023 by Joshua Rincon MD at [facility] Orthopedic Implant Left: Shoulder [employer] [id number] 04/26/2028 [id number] / / [id number] Component Krishna 36mm Std Glenosphere Clr Cd Cmprh Versa-Dial - [id number] Implanted:Qty : 1 on 05/16/2023 by Joshua Rincon MD at [facility] Orthopedic Implant Left: Shoulder [employer] [id number] 10/18/2032 [id number] / / [id number] Stem Hum 55mm 11mm Cmprh Por Mt Shldr Rvrs Sys - [id number] Implanted:Qty : 1 on 05/16/2023 by Joshua Rincon MD at [facility] Orthopedic Implant Left: Shoulder [employer] 01/09/2033 [id number] / / [id number] Tray Hum Cmprh Std Shldr Rvrs - [id number] Implanted:Qty : 1 on 05/16/2023 by Joshua Rincon MD at [facility] Orthopedic Implant Left: Shoulder [employer] [id number] 04/09/2033 [id number] / / [id number] Bsplt Tib 5 Kn Cmnt Fx Brng - Sna - [id number] Implanted:Qty : 1 on 11/10/2020 by Slava Magana DO at [facility] Plate Right: Knee [employer] 06/16/2030 [id number] / NA / [id number] Screw Bn 30mm 6.5mm Cntr Hx Hd Ti Cmprh 3.5mm Strl Rvrs - [id number] Implanted:Qty : 1 on 05/16/2023 by Joshua Rincon MD at [facility] Screw Left: Shoulder [employer] 11/09/2032 [id number] / / [id number] Screw Bn 20mm 4.75mm Lck Fx Ang Hx Hd Ti Cmprh 3.5mm Strl - [id number] Implanted:Qty : 1 on 05/16/2023 by Joshua Rincon MD at [facility] Screw Left: Shoulder [employer] [id number] 02/01/2033 [id number] / / [id number] Screw Bn 15mm 4.75mm Lck Fx Ang Hx Hd Ti Cmprh 3.5mm Strl - [id number] Implanted:Qty : 1 on 05/16/2023 by Joshua Rincon MD at [facility] Screw Left: Shoulder [employer] [id number] 04/01/2033 [id number] / / [id number] Screw Bn 15mm 4.75mm Lck Fx Ang Hx Hd Ti Cmprh 3.5mm Strl - [id number] Implanted:Qty : 1 on 05/16/2023 by Joshua Rincon MD at [facility] Screw Left: Shoulder [employer] [id number] 04/01/2033 [id number] / / [id number] Screw Bn 20mm 4.75mm Va Hx Hd Ti Cmprh 3.5mm Strl Rvrs Shldr - [id number] Implanted:Qty : 1 on 05/16/2023 by Joshua Rincon MD at [facility] Screw Left: Shoulder [employer] [id number] 01/05/2032 [id number] / / [id number] Insurance MEDICARE COMMERCIAL Advance Directives Documents on File Type Date Recorded Patient Spanish 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
--- OUTSIDE RECORDS SUMMARY | 2025-02-27 13:25 | XMS_ITS | Encounter Summary ---
Author Organization [employer] Address [id number] [address] [place] [address] Care Team Providers Care Etcher Aircraft Name Role Phone Will Alvarez MD Primary Care Provider + [phone] Encounter Details Date Type Department Care Team (Late st Contact Info) Description 01/29/2023 Orders Only [facility] [address] [place] [address] Susan Ramirez, JEAN-CLAUDE Left rotator cuff tear [...] Recorded Do you need help finding a [facility] career center and/or a training program? No [...] documented as of this encounter Care Teams Etcher Aircraft Relationship Specialty Start Date End Date Will Alvarez MD PCP - General Family Medicine 10/20/20 documented as of this encounter
--- OUTSIDE RECORDS SUMMARY | 2025-02-27 13:25 | XMS_ITS | Encounter Summary ---
Author Organization [facility] Address [address] [place] [address] Care Team Providers Care Sales Support Representative Name Role Phone Will Alvarez MD Unavailable [phone] Slava Magana DO Unavailable [phone] Jeet Aguirre MD Unavailable Osei Arevalo DPM Unavailable [phone] Will Alvarez MD Primary Care Provider [phone] Encounter Details Date Type Department Care Team (Late st Contact Info) Description 10/30/2023 Abstract [facility] [address] [facility] [place] [address] Slava Magana, DO [address] [id number] Social History Tobacco Use Types Packs/Day Years [...] 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 Not on file Not on file documented as of this encounter Plan of Treatment Upcoming Encounters Date Type Department Care Team (Late st Contact Info) Description 05/19/2025 3:00 PM EDT Procedure Visit [facility] [address] [place] [address] Osei Arevalo DPM [address] [place], [place] [id number] documented as of this encounter Visit Diagnoses Not on filedocumented in this encounter Care Teams Sales Support Representative Relationship Specialty Start Date End Date Will Alvarez MD [address] [place] [address] PCP - ACO Reach 02/08/23 Will Alvarez MD [address] [place] [address] PCP - General Family Medicine 02/10/25 Slava Magana DO [address] [place] [address] Referring Physician Orthopaedic Surgery 10/25/23 Jeet [facility]irre MD [address] [facility] [address] [place] [address] Referring Physician Rheumatology 10/25/23 Osei Arevalo DPM [address] [place], [place] [address] Referring Physician Podiatry 10/25/23 documented as of this encounter
--- OUTSIDE RECORDS SUMMARY | 2025-02-27 13:25 | XMS_ITS | Encounter Summary ---
Author Organization [facility] Address [address] [place] [address] Care Team Providers Care Boat Dispatcher Name Role Phone Will Alvarez MD Unavailable [phone] Slava Magana DO Unavailable [phone] Jeet Aguirre MD Unavailable Osei Arevalo DPM Unavailable [phone] Will Alvarez MD Primary Care Provider [phone] Encounter Details Date Type Department Care Team (Late st Contact Info) Description 11/21/2023 Abstract [facility] [address] [place] [address] Will Alvarez MD [address] [address] Social History Tobacco Use Types [...] EDT Procedure Visit [facility] [address] [place] [address] Osei Arevalo DPM [address] [place], [place] [address] documented as of this encounter Visit Diagnoses Not on filedocumented in this encounter Care Teams Boat Dispatcher Relationship Specialty Start Date End Date Will Alvarez MD [address] [place] [address] PCP - ACO Reach 02/08/23 Will Alvarez MD [address] [place] [address] PCP - General Family Medicine 02/10/25 Slava Magana DO [address] [place] [address] Referring Physician Orthopaedic Surgery 10/25/23 Jeet Aguirre MD [address] [facility] Professional building [address] [place] [address] Referring Physician Rheumatology 10/25/23 Osei Arevalo DPM [address] [place], [place] [address] Referring Physician Podiatry 10/25/23 documented as of this encounter
--- OUTSIDE RECORDS SUMMARY | 2025-02-27 13:25 | XMS_ITS | Encounter Summary ---
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 Not on file documented as of this encounter Plan of Treatment Upcoming Encounters Date Type Department Care Team (Late st Contact Info) Description 05/19/2025 3:00 PM EDT Procedure Visit [facility] [address] [place] [address] Osei Arevalo DPM [address] [place], [place] [address] documented as of this encounter Visit Diagnoses Not on filedocumented in this encounter Care Teams Shift Foreman Relationship Specialty Start Date End Date Will Alvarez MD [address] [place] [address] PCP - ACO Reach 02/08/23 Will Alvarez MD [address] [place] [address] PCP - General Family Medicine 02/10/25 Slava Magana DO [address] [place] [address] Referring Physician Orthopaedic Surgery 10/25/23 [facility]et [facility] MD [address] [facility] [address] [place] [address] Referring Physician Rheumatology 10/25/23 Osei Arevalo DPM [address] [place], [place] [phone] Referring Physician Podiatry 10/25/23 documented as of this encounter
--- OUTSIDE RECORDS SUMMARY | 2025-02-27 13:25 | XMS_ITS | Clinical Summary ---
Author Organization [facility] Address [address] [place] [address] Phone Care Team Providers Care Receiving Barn Custodian Name Role Phone Unavailable Primary Care Provider [...]
--- OUTSIDE RECORDS SUMMARY | 2025-02-27 13:25 | XMS_ITS | Encounter Summary ---
Author Organization [facility] Address [address] [place] [address] Care Team Providers Care Scalp Specialist Name Role Phone Will Alvarez MD Unavailable [phone] Slava Magana DO Unavailable [phone] Jeet Aguirre MD Unavailable Osei Arevalo DPM Unavailable [phone] Will Alvarez MD Primary Care Provider + [phone] Encounter Details Date Type Department Care Team (Late st Contact Info) Description 10/08/2023 Orders Only [facility] [address] [place] [address] Will Alvarez MD [address] [address] Social History Tobacco Use Types [...] EDT Procedure Visit [facility] [address] [facility] [place] [address] Osei Arevalo DPM [address] [place], [place] [address] documented as of this encounter Procedures Procedure Name Priority Date/Time Associated Diagnosis Comments ELECTROCARDIOGRAM REPORT Routine 9:07 AM EST documented in this encounter Results * Electrocardiogram Report (10/04/2023 9:07 AM EST) Will Alvarez MD IN CLINIC/BEDSIDE ORDERABLES Final Result documented in this encounter Visit Diagnoses Not on filedocumented in this encounter Care Teams Scalp Specialist Relationship Specialty Start Date End Date Will Alvarez MD 112 [facility] [address] [place] [address] PCP - ACO Reach 02/08/23 Will Alvarez MD 112 [facility] [address] [place] [address] PCP - General Family Medicine 02/10/25 Slava Magana DO 112 [facility] [address] [place] [address] Referring Physician Orthopaedic Surgery 10/25/23 Jeet Aguirre MD [address] [facility] Professional building [address] [place] [phone] Referring Physician Rheumatology 10/25/23 Osei Arevalo DPM [address] [place] [address] Referring Physician Podiatry 10/25/23 documented as of this encounter
--- OUTSIDE RECORDS SUMMARY | 2025-02-27 13:26 | XMS_ITS | Clinical Summary ---
Author Organization [facility] Address [address] [place] [address] Care Team Providers Care Galley Cook Name Role Phone Will Alvarez MD Unavailable Jeet Aguirre MD Unavailable [phone] Osei Arevalo DPM Unavailable Will Alvarez MD Primary Care Provider Allergies Active Allergy Reactions Criticality Noted Date [...] or split. Active metFORMIN (Glucophage) 1000 MG tabletIndications: Impaired glucose tolerance test Take 1 tablet (1,000 mg) by mouth in the morning and 1 tablet (1,000 mg) in the evening. Take with meals. 180 tablet 1 4 Active atorvastatin (Lipitor) 10 MG tabletIndications: Mixed hyperlipidemia Take 1 tablet (10 mg) by mouth at bedtime 90 tablet 3 5 10/20/19 26 Active nabumetone (Relafen) 750 MG tablet Take 750 mg by mouth in the morning and 750 mg before bedtime. 5 Active DULoxetine (Cymbalta) [address] capsuleIndications :Recurrent major depressive disorder, in partial remission Take 1 capsule (60 mg) by mouth Daily 30 capsule 5 03/20/20 25 Active gabapentin (Neurontin) 100 MG capsule Take 100 mg by mouth 3 (three) times a day 5 Active DULoxetine (Cymbalta) [address] capsuleIndications :Recurrent major depressive disorder, in partial remission Take 1 capsule (60 mg) by mouth Daily 90 capsule 1 4 02/19/20 25 Discontin ued(Reord er) Active Problems Problem Noted Date Diagnosed Date [...] Obesity (BMI 30.0-34.9) 02/08/2023 Recurrent major depressive disorder, in partial remission 02/08/2023 Venous insufficiency 02/08/2023 Polypharmacy 10/26/2020 Rheumatoid arthritis 12/04/2019 Impaired glucose tolerance test 01/22/2019 Insulin resistance 01/22/2019 Resolved Problems Problem Noted Date Diagnosed Date Resolved Date Positive colorectal cancer s creening using Cologuard test 05/23/2024 06/24/2024 Left shoulder pain 07/04/2023 Arthritis of right acromioclavicular joint 02/08/2023 02/07/2024 [...] Encounters Date Type Department Care Team Description 02/18/2025 Orders Only [facility] [address] [place] [address] [facility] [place] 02/18/2025 Orders Only [facility] [address] [place] [address] [facility] [place] Recurrent major depressive disorder, in partial remission 02/15/2025 Orders Only [facility] [address] [place] [address] Will Alvarez MD 02/11/2025 2:30 PM EDT Procedure Visit [facility] [address] [place] [id number] Osei Arevalo DPM Onychomycosis (Primary Dx); Onychodystrophy; Diabetic polyneuropathy associated with type 2 diabetes mellitus (HCC) 02/11/2025 Bamboo flowsheet [facility] [address] [place] [address] Osei Arevalo DPM 02/11/2025 Travel 02/10/2025 Travel 02/02/2025 9:00 AM EDT Office Visit [facility] [address] [facility] [address] [place] [address] Will Alvarez MD Encounter for Medicare annual wellness exam (Primary Dx); Advance directive in chart; Encounter for screening for other disorder; Screening for alcohol problem; Obesity (BMI 30.0-34.9); Screening mammogram, encounter for; Screening for osteoporosis; Dermatomyositis (HCC); Rheumatoid arthritis involving multiple sites with positive rheumatoid factor (HCC); Recurrent major depressive disorder, in partial remission ; Mixed hyperlipidemia ; Essential hypertension ; Hypertensive nephropathy ; Menopause; Insulin resistance; Impaired glucose tolerance test; Cigarette smoker; Cardiovascular event risk 02/02/2025 Bamboo flowsheet [facility] [address] [place] [address] Will Alvarez MD 02/02/2025 Travel 01/20/2025 Telephone [facility] [address] [place] [address] Lynn Aguiar MA Referral 01/07/2025 Telephone [facility] [address] [facility] [address] [place] [address] Will Alvarez MD 01/07/2025 Orders Only [facility] [address] [place] [address] Will Alvarez MD 01/06/2025 Telephone [facility] [address] [place] [address] Will Alvarez MD 01/05/2025 10:30 AM EDT Treatment [facility] [address] [place] [address] Michela Campos, PT Chronic pain syndrome (Primary Dx); Right leg weakness; Neuropathy; Right foot pain 01/05/2025 Bamboo flowsheet [facility] [address] [place] [address] Michela Quiros, PT 01/05/2025 Travel 01/01/2025 2:00 PM EDT Treatment [facility] [address] [place] [address] Kelbley, Jaimee, DIE CASTING MACHINE MAINTAINER Chronic pain syndrome (Primary Dx); Right leg weakness 01/01/2025 Bamboo flowsheet [facility] [address] [place] [address] Kelbley, Jaimee, DIE CASTING MACHINE MAINTAINER 01/01/2025 Travel 12/30/2024 2:00 PM EDT Treatment [facility] [address] [place] [address] Kelbley, Jaimee, DIE CASTING MACHINE MAINTAINER Chronic pain syndrome (Primary Dx); Right leg weakness 12/30/2024 Bamboo flowsheet [facility] [address] [place] [address] Kelbley, Jaimee, DIE CASTING MACHINE MAINTAINER 12/30/2024 Travel 12/25/2024 2:00 PM EDT Treatment [facility] [address] [place] [address] Kelbley, Jaimee, DIE CASTING MACHINE MAINTAINER Chronic pain syndrome (Primary Dx); Right leg weakness 12/25/2024 Bamboo flowsheet [facility] [address] [place] [address] Kelbley, Jaimee, DIE CASTING MACHINE MAINTAINER 12/25/2024 Travel 12/22/2024 7:00 AM EDT Treatment [facility] [address] [place] [address] Kelbley, Jaimee, DIE CASTING MACHINE MAINTAINER Chronic pain syndrome (Primary Dx); Right leg weakness 12/22/2024 Bamboo flowsheet [facility] [address] [place] [address] Kelbley, Jaimee, DIE CASTING MACHINE MAINTAINER 12/22/2024 Travel 12/19/2024 10:00 AM EDT Treatment [facility] [address] [place] [address] Kelbley, Jaimee, DIE CASTING MACHINE MAINTAINER Chronic pain syndrome (Primary Dx); Right leg weakness 12/19/2024 Bamboo flowsheet [facility] [address] [place] [address] Kelbley, Jaimee, DIE CASTING MACHINE MAINTAINER 12/19/2024 Travel 12/16/2024 2:00 PM EDT Treatment [facility] [address] [place] [address] Kelbley, Jaimee, DIE CASTING MACHINE MAINTAINER Chronic pain syndrome (Primary Dx); Right leg weakness; Neuropathy 12/16/2024 Bamboo flowsheet [facility] [address] [place] [address] Kelbley, Jaimee, DIE CASTING MACHINE MAINTAINER 12/16/2024 Travel 12/10/2024 2:00 PM EDT Treatment [facility] [address] [place] [address] Kelbley, Jaimee, DIE CASTING MACHINE MAINTAINER Chronic pain syndrome (Primary Dx); Right leg weakness 12/10/2024 Bamboo flowsheet [facility] [address] [place] [address] Kelblejessenia, Jaimee, DIE CASTING MACHINE MAINTAINER 12/10/2024 Travel 12/08/2024 8:30 AM EDT Treatment [facility] [address] [place] [address] Kelbley, Jaimee, DIE CASTING MACHINE MAINTAINER Chronic pain syndrome (Primary Dx); Right leg weakness; Neuropathy 12/08/2024 Telephone [facility] [address] [place] [address] Will Alvarez MD 12/08/2024 Bamboo flowsheet [facility] [address] [place] [address] Kelblejessenia, Jaimee, DIE CASTING MACHINE MAINTAINER 12/08/2024 Travel 12/05/2024 11:00 AM EDT Treatment [facility] [address] [place] [address] Nakul Garcia, DIE CASTING MACHINE MAINTAINER Chronic pain syndrome (Primary Dx); Right leg weakness; Neuropathy 12/05/2024 Bamboo flowsheet [facility] [address] [facility] [address] [place] [address] Nakul Garcia, DIE CASTING MACHINE MAINTAINER 12/05/2024 Travel 12/03/2024 3:00 PM EDT Evaluation [facility] [address] [facility] [address] [place] [address] Michela Campos, PT Right leg weakness (Primary Dx); Chronic pain syndrome; Neuropathy; Right foot pain 12/03/2024 Plan of Care Documentation [facility] [address] [facility] [address] [place] [address] 12/03/2024 Bamboo flowsheet [facility] [address] [facility] [address] [place] [address] Michela Campos, PT 12/03/2024 Travel from Last 3 Months Immunizations Immunization [...] 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 on file Not [...] 3:00 PM EDT Procedure Visit [facility] [address] [place] [address] Osei Arevalo, DPM [address] [place] [address] Health Maintenance Due Date Last Done Comments [...] Routine 02/13/2025 8:31 AM EDT Essential hypertension Hypertensive nephropathy Insulin resistance Impaired glucose tolerance test HEMOGLOBIN A1C Routine 02/13/2025 8:31 AM EDT Insulin resistance Impaired glucose tolerance test DIABETIC RETINOPATHY SCREENING - OU - BOTH EYES Routine 07/18/2024 10:02 AM EDT COLONOSCOPY Routine 07/02/2024 11:03 AM EDT LAB COLOGUARD COLON CANCER SCREEN Routine 02/24/2024 9:00 AM EDT Colon cancer screening BI MAMMOGRAM SCREENING TOMOSYNTHESIS BILATERAL Routine 07/22/2021 from Last 3 Months or Most Recently Relevant to Health Maintenance Results * (ABNORMAL) Microalbumin / creatinine urine ratio (02/13/2025 8:31 AM EDT) CREATININE, RANDOM URINE 24 20 - 275 [...] Performing Organization Information Site ID: QPT Name: [employer] [facility] Address: [address] [place] [address], [address] [place] [phone] Director: Edgardo Lake MD Will Alvarez MD LAB URINE ORDERABLES Final R esult [facility] * Hemoglobin A1c (02/13/2025 8:31 AM [...] diagnosis of diabetes in children. According to [place] Diabetes Association (ADA) guidelines, hemoglobin A1c <7.0% represents optimal control in non- diabetic patients. Different metrics may apply to specific patient populations. Standards of Medical Care in Diabetes(ADA). Blood Venous blood specimen / Unknown 02/13/2025 8:31 AM EDT 02/13/2025 3:49 PM EDT Narrative Resulting Agency Comment Performing Organization Information Site ID: QPT Name: [employer] [facility] Address: [address] [place] [address] Director: Edgardo Lake MD Will Alvarez MD LAB BLOOD ORDERABLES Final R esult [facility] * Diabetic Retinopathy Screening - OU - [...] Positive( A) Negative 03/03/2024 5:41 PM EDT [facility] (CLIA #:[id number]) Comment: POSITIVE TEST RESULT. A positive Cologuard [...] (Henry Wynn al, N Engl J Med 2014;370(14):9682-4460.) Cologuard may produce a false negative or false positive result (no colorectal cancer or precancerous polyp present at colonoscopy follow up). A negative Cologuard test result does not guarantee the absence of CRC or advanced adenoma (pre-cancer). The current Cologuard screening interval is every 3 years. ([place] Cancer Society and U.S. Multi-Society Task Force). Cologuard performance data in a 10,000 patient pivotal study using colonoscopy as the reference method can be accessed at the following location: [email or web address]/results. Additional description of the Cologuard test process, warnings and precautions can be found at www.cologuard.com. Stool specimen (specimen) Rectal contents / Unknown 02/24/2024 9:00 AM EDT 02/26/2024 11:26 AM EDT Will Alvarez MD LAB MOLECULAR DIAGNOSTICS OR DERABLES Final Result [facility] (CLIA #:[id number]) [address] [address] [phone] [facility] (CLIA #:[id number]) [address] [address] * Bilateral screening mammogram with tomosynthesis (07/22/2021) Anatomical Region Laterality Modality Breast Bilateral Mammography Narrative 07/22/2021 12:00 AM EDT PERFORMED AT [facility] LOCATION:[place] [address] Patient: HOLLI Woody Exam Date: 07/22/2021 : 1950 Gender:F Ordering : DR WILL ALVAREZ . Admission #: [id number] Family : Order #: [id number] CLICK HERE TO VIEW EXAM RADIOLOGY REPORT [...] throat cancer at age 77. LOCATION: [facility] BREAST COMPOSITION: Almost entirely fatty. FINDINGS: DIAGNOSTIC [...] Note CONVERSION, GENERIC - 03/23/2023 PERFORMED AT [facility] LOCATION:[place] [address] Patient: HOLLI Woody Exam Date: 07/22/2021 : 1950 Gender:F Ordering : DR WILL ALVAREZ . Admission #: [id number] Family : Order #: [id number] CLICK HERE TO VIEW EXAM RADIOLOGY REPORT [...] throat cancer at age 77. LOCATION: [facility] BREAST COMPOSITION: Almost entirely fatty. 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 Expl anation Advance Directives and Living Will 11/29/2021 2019-04-01 Living Wi ll Advance Directives and Living Will 11/29/2021 2016-04-04 Power Of Hand Scraper Care Teams Galley Cook Relationship Specialty Start Date End Date Will Alvarez MD [address] [facility] [address] [place] [address] (Fax) PCP - ACO Reach 02/08/23 Will Alvarez MD [address] [facility] [address] [place] [address] (Fax) PCP - General Family Medicine 02/10/25 Jeet Aguirre MD [address] [facility] Professional building 1 [place] [address] Referring Physician Rheumatology 10/25/23 Osei Arevalo DPM [address] [place] [address] Referring Physician Podiatry 10/25/23
--- OUTSIDE RECORDS SUMMARY | 2025-02-27 13:26 | XMS_ITS | Encounter Summary ---
Author Organization [facility] Address [address] [place] [address] Care Team Providers Care Program Professional Name Role Phone Will Alvarez MD Unavailable [phone] Jeet Aguirre MD Unavailable [phone] Osei Arevalo DPM Unavailable [phone] Will Alvarez MD Primary Care Provider [phone] Encounter Details Date Type Department Care Team (Late Contact Info) Description 02/18/2025 Orders Only [facility] [address] [place] [address] Lynn Aguiar, MA Recurrent major depressive disorder, in partial remission Social History Tobacco Use Types Packs/Day Years [...] 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 file Not on file documented as of this encounter Plan of Treatment Upcoming Encounters Date Type Department Care Team ([facility] Contact Info) Description 05/19/2025 3:00 PM EDT Procedure Visit [facility] [address] [place] [address] Osei Arevalo DPM [address] [place], [place] [address] documented as of this encounter Visit Diagnoses Diagnosis Recurrent major depressive disorder, in partial remission documented in this encounter Additional Health Concerns Assessment Noted Time PHQ-9 Depression Total Score: 5 02/03/20 25 9:00 AM EDT documented as of this encounter Care Teams Program Professional Relationship Specialty Start Date End Date Will Alvarez MD [address] [place] [address] PCP - ACO Reach 02/08/23 Will Alvarez MD [address] [place] [address] PCP - General Family Medicine 02/10/25 Jeet Aguirre MD [address] [facility] Professional building [address] [place] [address] Referring Physician Rheumatology 10/25/23 Osei Arevalo DPM [address] [place], [place] [address] Referring Physician Podiatry 10/25/23 documented as of this encounter
--- OUTSIDE RECORDS SUMMARY | 2025-02-27 13:26 | XMS_ITS | Encounter Summary ---
Author Organization [facility] Address [address] [place] [address] Care Team Providers Care Department Clerk Name Role Phone Will Alvarez MD Unavailable [phone] Slava Magana DO Unavailable [phone] Jeet Aguirre MD Unavailable [phone] Osei Arevalo DPM Unavailable [phone] Will Alvarez MD Primary Care Provider [phone] Encounter Details Date Type Department Care Team (Late st Contact Info) Description 08/19/2024 Orders Only [facility] [address] [place] [address] Angie Early, OD [address] 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 Not on file documented as of this encounter Plan of Treatment Upcoming Encounters Date Type Department Care Team (Late st Contact Info) Description 05/19/2025 3:00 PM EDT Procedure [facility] [address] [facility] [place] [address] Osei Arevalo, DPKaleigh [address] [place], [place] [address] documented as of this encounter Procedures Procedure [...] documented as of this encounter Care Teams Department Clerk Relationship Specialty Start Date End Date Will Alvarez MD 112 [facility] 100 [place] [address] PCP - ACO Reach 02/08/23 Will Alvarez MD 112 [facility] 100 [place] [address] (Fax) PCP - General Family Medicine 02/10/25 Slava Magana DO 112 [facility] [address] [place] [address] Referring Physician Orthopaedic Surgery 10/25/23 Jeet [facility]irre MD [address] [facility] [address] [place] [address] Referring Physician Rheumatology 10/25/23 Osei Arevalo DPM [address] [place] [id number] Referring Physician Podiatry 10/25/23 documented as of this encounter
--- OUTSIDE RECORDS SUMMARY | 2025-02-27 13:26 | XMS_ITS | Encounter Summary ---
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 Not on file documented as of this encounter Plan of Treatment Upcoming Encounters Date Type Department Care Team (Late st Contact Info) Description 05/19/2025 3:00 PM EDT Procedure Visit [facility] [address] [facility] [place] [address] Oesi Arevalo DPM [address] [place], [place] [address] documented as of this encounter Visit Diagnoses Not on filedocumented in this encounter Care Teams County Home Demonstration Agent Relationship Specialty Start Date End Date Will Alvarez MD [address] [place] [address] PCP - ACO Reach 02/08/23 Will Alvarez MD [address] [place] [address] PCP - General Family Medicine 02/10/25 Slava Magana DO [address] [place] [address] Referring Physician Orthopaedic Surgery 10/25/23 Jeet Aguirre MD [address] [facility] Professional building [address] [place] [address] Referring Physician Rheumatology 10/25/23 Osei Arevalo DPM [address] [place], [place] [address] Referring Physician Podiatry 10/25/23 documented as of this encounter
--- OUTSIDE RECORDS SUMMARY | 2025-02-27 13:26 | XMS_ITS | Encounter Summary ---
Author Organization [facility] Address [address] [place] [address] Care Team Providers Care Grain Unloader Name Role Phone Will Alvarez MD Unavailable [phone] Slava Magana DO Unavailable [phone] Jeet Aguirre MD Unavailable [phone] Osei Arevalo DPM Unavailable [phone] Will Alvarez MD Primary Care Provider [phone] Encounter Details Date Type Department Care Team (Late st Contact Info) Description 08/07/2023 Abstract [facility] [address] [place] [address] Joshua Rincon MD [address] [facility] [address] Social History Tobacco Use Types [...] 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 Not on file documented as of this encounter Plan of Treatment Upcoming Encounters Date Type Department Care Team (Late st Contact Info) Description 05/19/2025 3:00 PM EDT Procedure Visit [facility] [address] [place] [address] Osei Arevalo DPM [address] [place], [place] [address] documented as of this encounter Visit Diagnoses Not on filedocumented in this encounter Care Teams Grain Unloader Relationship Specialty Start Date End Date Will Alvarez MD [address] [place] [address] PCP - ACO Reach 02/08/23 Will Alvarez MD [address] [place] [address] PCP - General Family Medicine 02/10/25 Slava Magana DO [address] [place] [address] Referring Physician Orthopaedic Surgery 10/25/23 Jeet Aguirre MD [address] Professional [address] [place] [address] Referring Physician Rheumatology 10/25/23 Osei Arevalo DPM [address] [place], [place] [address] Referring Physician Podiatry 10/25/23 documented as of this encounter
--- OUTSIDE RECORDS SUMMARY | 2025-02-27 13:26 | XMS_ITS | Encounter Summary ---
Author Organization [facility] Address [address] [place] [address] Care Team Providers Care Snuff Grinder And Screener Name Role Phone Will Alvarez MD Unavailable Slava Magana DO Unavailable [phone] Jeet Aguirre MD Unavailable Osei Arevalo DPM Unavailable [phone] Will Alvarez MD Primary Care Provider [phone] Encounter Details Date Type Department Care Team (Late st Contact Info) Description 09/26/2023 Orders Only [facility] [address] [place] [address] Jeet Aguirre MD [address] [facility] Professional building 1 [place] [address] Social History Tobacco Use Types [...] 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 [address] [place] [address] (Fax) PCP - ACO Reach 02/08/23 Will Alvarez MD [address] [facility] [address] [place] [address] (Fax) PCP - General Family Medicine 02/10/25 Slava Magana DO [address] [place] [address] Referring Physician Orthopaedic Surgery 10/25/23 Jeet Aguirre MD [address] [facility] [address] [place] [phone] Referring Physician Rheumatology 10/25/23 Osei Arevalo DPM [address] [place] [address] Referring Physician Podiatry 10/25/23 documented as of this encounter
--- OUTSIDE RECORDS SUMMARY | 2025-02-27 13:26 | XMS_ITS | Patient Health Record ---
Author Organization [facility] [place] Address [address] [place] [address] Care Team Providers Care Mold Laminator Name Role Phone None, Unknown or Primary Care Provider Unavailab le Reason For Referral No Information Plan Of Treatment No Information Insurance Providers Payer Name Payer Address Payer Phone Subscriber Number Group Number Insured Name Patient Relationship to Insured Coverage Start Date Coverage End Date MEDIC[place] [address] [place] [id number] Neha Blanc Self - patient is the insured 7 [employer] 8 MEDICARE SUPP CLAIM DEPT [address] [place] [address] [id number] Neha Blanc Self - patient is the insured 7
--- OUTSIDE RECORDS SUMMARY | 2025-02-27 13:26 | XMS_ITS | Encounter Summary ---
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 Not on file documented as of this encounter Plan of Treatment Upcoming Encounters Date Type Department Care Team (Late st Contact Info) Description 05/19/2025 3:00 PM EDT Procedure Visit [facility] [address] [place] [address] Osei Arevalo, DPM [address] [place], [place] [address] documented as of this encounter Procedures Procedure [...] on filedocumented in this encounter Care Teams On Site Services Specialist Relationship Specialty Start Date End Date Will Alvarez MD [address] [place] [address] PCP - ACO Reach 02/08/23 Will Alvarez MD [address] [place] [address] PCP - General Family Medicine 02/10/25 Slava Magana DO [address] [place] [address] Referring Physician Orthopaedic Surgery 10/25/23 Jeet Aguirre MD [address] [facility] Professional building 1 [place] [address] Referring Physician Rheumatology 10/25/23 Osei Arevalo DPM [address] [place] [address] Referring Physician Podiatry 10/25/23 documented as of this encounter
--- OUTSIDE RECORDS SUMMARY | 2025-02-27 13:26 | XMS_ITS | Encounter Summary ---
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 file [...] PM EDT Procedure Visit [facility] [address] [place] [address] Osei Arevalo DPM [address] [place] [address] documented as of this encounter Visit Diagnoses Not on filedocumented in this encounter Additional Health Concerns Assessment Noted Time PHQ-9 Depression Total Score: 5 02/03/20 25 9:00 AM EDT documented as of this encounter Care Teams Nerve Specialist Relationship Specialty Start Date End Date Will Alvarez MD [address] [address] PCP - ACO Reach 02/08/23 Will Alvarez MD [address] [address] PCP - General Family Medicine 02/10/25 Jeet Aguirre MD [address] [facility] [place] [address] Referring Physician Rheumatology 10/25/23 Osei Arevalo DPM [address] [place] [address] Referring Physician Podiatry 10/25/23 documented as of this encounter
--- OUTSIDE RECORDS SUMMARY | 2025-02-27 13:26 | XMS_ITS | Encounter Summary ---
Author Organization [facility] Address [address] [place] [address] Care Team Providers Care Infertility Nurse Name Role Phone Will Alvarez MD Unavailable [phone] Slava Magana DO Unavailable [phone] Jeet Aguirre MD Unavailable [phone] Osei Arevalo DPM Unavailable [phone] Will Alvarez MD Primary Care Provider [phone] Encounter Details Date Type Department Care Team (Late st Contact Info) Description 07/09/2024 Orders Only [facility] [address] [place] [address] Will Alvarez MD [address] [place], [place] [address] Social History Tobacco Use Types Packs/Day Years [...] 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 [address] [place] [address] PCP - ACO Reach 02/08/23 Will Alvarez MD [address] [facility] [address] [place] [address] (Fax) PCP - General Family Medicine 02/10/25 Slava Magana DO [address] [place] [address] Referring Physician Orthopaedic Surgery 10/25/23 Jeet Aguirre MD [address] Professional [address] 1 [place] [address] Referring Physician Rheumatology 2/8/24 Osei Arevalo DPM [address] [place] [address] Referring Physician Podiatry 10/25/23 documented as of this encounter
--- OUTSIDE RECORDS SUMMARY | 2025-02-27 13:26 | XMS_ITS | Encounter Summary ---
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 Not on file documented as of this encounter Plan of Treatment Upcoming Encounters Date Type Department Care Team (Late Contact Info) Description 05/19/2025 3:00 PM EDT Procedure Visit [facility] [address] [place] [address] Osei Arevalo DPM [address] [place], [place] [address] documented as of this encounter Visit Diagnoses Not on filedocumented in this encounter Additional Health Concerns Assessment Noted Time PHQ-9 Depression Total Score: 5 02/03/20 25 9:00 AM EDT documented as of this encounter Care Teams Estimation Manager Relationship Specialty Start Date End Date Will Alvarez MD [address] [place] [address] PCP - ACO Reach 02/08/23 Will Alvarez MD [address] [place] [address] PCP - General Family Medicine 02/10/25 Jeet Aguirre MD [address] [facility] Professional building 1 [place] [address] Referring Physician Rheumatology 10/25/23 Osei Arevalo DPM [address] [place], [place] [address] Referring Physician Podiatry 10/25/23 documented as of this encounter
--- OUTSIDE RECORDS SUMMARY | 2025-02-27 13:26 | XMS_ITS | Encounter Summary ---
Author Organization [facility] Address [address] [place] [address] Care Team Providers Care Cart Driver Name Role Phone Will Alvarez MD Unavailable [phone] Slava Magana DO Unavailable [phone] Jeet Aguirre MD Unavailable [phone] Osei Arevalo DPM Unavailable [phone] Will Alvarez MD Primary Care Provider Encounter Details Date Type Department Care Team (Late st Contact Info) Description 08/28/2023 Orders Only [facility] [address] [place] [address] Jeet Aguirre MD [address] [facility] Professional building 1 [place] [address] Social History Tobacco Use Types [...] 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 Not on file documented as of this encounter Plan of Treatment Upcoming Encounters Date Type Department Care Team (Late st Contact Info) Description 05/19/2025 3:00 PM EDT Procedure Visit [facility] [address] [facility] [address] Osei Arevalo, DPKaleigh [address] [place], [place] [address] documented as of this encounter Procedures Procedure [...] on filedocumented in this encounter Care Teams Cart Driver Relationship Specialty Start Date End Date Will Alvarez MD [address] [place] [address] PCP - ACO Reach 02/08/23 Will Alvarez MD [address] [place] [address] PCP - General Family Medicine 02/10/25 Slava Magana DO [address] [place] [address] Referring Physician Orthopaedic Surgery 10/25/23 Jeet Aguirre MD [address] [facility] Professional building 1 [place] [address] Referring Physician Rheumatology 10/25/23 Osei Arevalo DPM [address] [place] [address] Referring Physician Podiatry 10/25/23 documented as of this encounter
--- OUTSIDE RECORDS SUMMARY | 2025-02-27 13:26 | XMS_ITS | Encounter Summary ---
Author Organization [facility] Address [address] [place] [address] Care Team Providers Care Cutter Operator Brick Name Role Phone Will Alvarez MD Unavailable [phone] Slava Magana DO Unavailable [phone] Jeet Aguirre MD Unavailable [phone] Osei Arevalo DPM Unavailable [phone] Will Alvarez MD Primary Care Provider + [phone] Reason for Visit * Reason Comments Med Refill Encounter Details Date Type Department Care Team (Late st Contact Info) Description 05/01/2024 Refill [facility] [address] [phone] Linda Perez NP Social History Tobacco Use [...] 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 Not on file documented as of this encounter Plan of Treatment Upcoming Encounters Date Type Department Care Team (Late st Contact Info) Description 05/19/2025 3:00 PM EDT Procedure Visit [facility] [address] [place] [address] Osei Arevalo DPM [address] [place], [place] [address] documented as of this encounter Visit Diagnoses Not on filedocumented in this encounter Additional Health Concerns Assessment Noted Time PHQ-9 Depression Total Score: 4 02/05/20 24 8:00 AM EDT documented as of this encounter Care Teams Cutter Operator Brick Relationship Specialty Start Date End Date Will Alvarez MD [address] [place] [address] PCP - ACO Reach 02/08/23 Will Alvarez MD [address] [place] [address] PCP - General Family Medicine 02/10/25 Slava Magana DO [address] [place] [address] Referring Physician Orthopaedic Surgery 10/25/23 Jeet Aguirre MD [address] [facility] Professional building 1 [place] [address] Referring Physician Rheumatology 10/25/23 Osei Arevalo DPM [address] [place], [place] [address] Referring Physician Podiatry 10/25/23 documented as of this encounter
--- NOTE | 2025-02-27 13:50 | MM_ITS ---
Patient Name: DISHA DE LA GARZA MR#: [id number] : 1950 Exam Date: 02/27/2025 Ordering Doctor: DR LULI TIM . RADIOLOGY REPORT PROCEDURE: MM TOMOSYNTHESIS SCREENING BI COMPARISON: MG MAMM SCREEN 3D ANA CAD, 07/22/2021. MG MAMM SCREEN ANA W CAD, 02/23/2020. MG MAMM SCREEN ANA W CAD, 01/25/2018. INDICATIONS: Screening Calculator Name NCI Breast Cancer Risk Assessment Tool 5 Year Breast Cancer Risk 1.40% Lifetime Breast Cancer Risk 3.60% Personal Breast Cancer No Personal Ovarian Cancer No Treatments None Family Cancers Father with throat cancer at age ~75. LOCATION: [facility] BREAST COMPOSITION: The breasts are almost entirely fatty. FINDINGS: RIGHT BREAST: No significant suspicious finding. LEFT BREAST: No significant suspicious finding. DIAGNOSTIC CATEGORY 1--NEGATIVE. RECOMMENDATIONS: ROUTINE MAMMOGRAM AND CLINICAL EVALUATION IN 12 MONTHS. PLEASE NOTE: A NORMAL MAMMOGRAM DOES NOT EXCLUDE THE POSSIBILITY OF BREAST CANCER. A CLINICALLY SUSPICIOUS PALPABLE LUMP SHOULD BE BIOPSIED. Dictated by: Guido Salcedo DO on 02/27/2025 at 14:29 Approved by: Guido Salcedo DO on 02/27/2025 at 14:37
== END 2025-02-27 13:25 | disposition home or self-care (01) ==
LOC: MAMMO 13:24
PROVIDERS: PCP Family Medicine; Visit Provider Family Medicine
DX: Z12.31 Encounter for screening mammogram for malignant neoplasm of breast (principal); Z13.820 Encounter for screening for osteoporosis; Z78.0 Asymptomatic menopausal state; Z80.8 Family history of malignant neoplasm of other organs or systems
CPT/HCPCS: 77063; 77067; 77080

== ENCOUNTER 2025-02-27 13:25 | Outpatient (OUT) | payer MEDICARE, OTHER, SELFPAY ==
--- OUTSIDE RECORDS SUMMARY | 2025-02-27 13:27 | XMS_ITS | Encounter Summary ---
Author Organization [facility] Address [address] [place] [address] Care Team Providers Care Kaitara Taraka Name Role Phone Will Alvarez MD Unavailable [phone] Slava Magana DO Unavailable [phone] Jeet Aguirre MD Unavailable [phone] Osei Arevalo DPM Unavailable [phone] Will Alvarez MD Primary Care Provider + [phone] Encounter Details Date Type Department Care Team (Late st Contact Info) Description 12/11/2023 Orders Only [facility] [address] [place] [address] Slava Magana, DO [address] [place] [address] Social History Tobacco Use Types Packs/Day Years [...] 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 Not on file documented as of this encounter Plan of Treatment Upcoming Encounters Date Type Department Care Team (Late st Contact Info) Description 05/19/2025 3:00 PM EDT Procedure Visit [facility] [address] [place] [address] Osei Arevalo DPM [address] [place] [address] documented as of this encounter Procedures Procedure Name Priority Date/Time Associated Diagnosis Comments WOUND CULTURE Routine 12/11/2023 10:50 AM EDT documented in this encounter Results * WOUND CULTURE (12/11/2023 10:50 AM EDT) lSava Magana DO LAB BLOOD ORDERABLES Final Result documented in this encounter Visit Diagnoses Not on filedocumented in this encounter Care Teams Kaitara Taraka Relationship Specialty Start Date End Date Will Alvarez MD 112 [facility] 100 [place] [address] PCP - ACO Reach 02/08/23 Will Alvarez MD 112 [facility] 100 [place] [address] PCP - General Family Medicine 02/10/25 Slava Magana DO 112 [facility] 150 [place] [address] Referring Physician Orthopaedic Surgery 10/25/23 Jeet Aguirre MD [address] [facility] Professional building 1 [place] [address] Referring Physician Rheumatology 10/25/23 Osei Arevalo DPM [address] [place] [address] Referring Physician Podiatry 10/25/23 documented as of this encounter
--- NOTE | 2025-02-27 13:32 | MR_ITS ---
[address] [address] Patient Name: DISHA DE LA GARZA MRN: [facility]:[id number] date: 1950 Sex: F Assigned Patient Location: MRI Current Patient Location: MRI Accession/Order Number: [id number] Exam Date: 02/27/2025 15:30 Report Date: 02/27/2025 15:36 At the request of: QUIN ESTES NP Procedure: MR lumbar spine wo con MRI Lumbar Spine withoutcontrast TECHNIQUE: Multiplanar T1 and T2-weighted imaging of lumbar spine obtained without contrast. HISTORY: Lumbar pain radiating into the legs. Leg weakness. COMPARISON: None POST SURGERY CHANGES: None BONE MARROW INFILTRATION: None BONE MARROW EDEMA: None BONY ALIGNMENT: Adequate bony alignment identified. LUMBAR FRACTURE: None BONY LESIONS: None KIDNEYS: No hydronephrosis is identified. AORTA: No aortic aneurysm is seen. CONUS MEDULLARIS : The distal spinal cord is in adequate position without abnormality. Additional findings CONJOINED NERVE ROOT: None Lower thoracic level: Unremarkable L1-2 :Disc space narrowing with endplate changes. Diffuse disc bulge and endplate spurring. Mild central canal stenosis. Posterior element hypertrophy. Mild bilateral neural foraminal narrowing L2-3: Marked disc space narrowing with degenerative endplate change. Diffuse disc bulge with endplate spurring. Moderate to severe central canal stenosis. Moderate bilateral neural foraminal narrowing L3-4: Moderate disc space narrowing. Diffuse disc bulge and endplate spurring. Severe central canal stenosis. Posterior element hypertrophy. Marked bilateral neural foraminal narrowing L4-5: Moderate disc space narrowing. Diffuse disc bulge. Marked central canal stenosis. Posterior element hypertrophy. Marked bilateral neural foraminal narrowing L5-S1: Mild disc space narrowing. Mild anterolisthesis. Moderate central canal stenosis. Diffuse disc bulge. Posterior element hypertrophy. Moderate bilateral neural foraminal narrowing MR/MR lumbar spine wo con IMPRESSION: Extensive multilevel discovertebral degenerative changes. Levels of extensive central canal stenosis as above greatest at L3-4 neural foraminal.. Pre-MRI plain film assessment: None Impression dictated by: Guido Salcedo M.D. 02/27/2025 3:36 PM Dictation Location: [place] [address] Electronically authenticated by: [id number] Y Date: 02/27/2025 15:36
== END 2025-02-27 13:26 | disposition home or self-care (01) ==
LOC: MRI 13:25
PROVIDERS: PCP Family Medicine; Visit Provider Nurse Practitioner
DX: M48.062 Spinal stenosis, lumbar region with neurogenic claudication (principal); Z12.31 Encounter for screening mammogram for malignant neoplasm of breast; Z13.820 Encounter for screening for osteoporosis; Z78.0 Asymptomatic menopausal state; Z80.8 Family history of malignant neoplasm of other organs or systems; M51.369 Other intervertebral disc degeneration, lumbar region without mention of lumbar back pain or lower extremity pain
CPT/HCPCS: 72148; 77063; 77067; 77080

== ENCOUNTER 2025-03-19 13:31 | Outpatient (OUT) | payer MEDICARE, OTHER, SELFPAY ==
--- OUTSIDE RECORDS SUMMARY | 2025-03-18 14:00 | XMS_ITS | Encounter Summary ---
Author Organization [facility] Address [address] [place] [address] Care Team Providers Care Lock Expert Name Role Phone Will Alvarez MD Unavailable [phone] Jeet Aguirre MD Unavailable [phone] Osei Arevalo DPM Unavailable [phone] Will Alvarez MD Primary Care Provider [phone] Encounter Details Date Type Department Care Team (Late st Contact Info) Description 03/18/2025 2:00 PM EDT Office Visit [facility] [address] [facility] 100 [place] [address] Will Alvarez MD 112 [facility] 100 [place], [place] [phone] (Fax) Recurrent major depressive disorder, in partial [...] 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 We have discussed the proper type of [...] Procedure Visit [facility] [address] [place] [phone] Osei rAevalo DPM [address] [place], [place] [id number] documented as of this encounter Visit Diagnoses Diagnosis Recurrent major depressive disorder, in partial remission- Primary Osteopenia, unspecified location Impaired glucose tolerance test documented in this encounter Additional Health Concerns Assessment Noted Time PHQ-9 Depression Total Score: 5 02/03/20 25 9:00 AM EDT documented as of this encounter Care Teams Lock Expert Relationship Specialty Start Date End Date Will Alvarez MD [address] [place] [address] PCP - ACO Reach 02/08/23 Will Alvarez MD [address] [place] [address] PCP - General Family Medicine 02/10/25 Jeet Aguirre MD [address] [facility] Professional building 1 [place] [address] Referring Physician Rheumatology 10/25/23 Osei Arevalo DPM [address] [place], [place] [id number] Referring Physician Podiatry 10/25/23 documented as of this encounter
--- NOTE | 2025-03-19 08:04 | P.CN_ITS ---
Consult Note: HPI Data of Consult Patient: known to practice within the last 3 years Consult date: 03/19/25 Requesting Physician: Selena Hernandez NP Primary Care Provider: LULI ALVAREZ Consult Narrative Reason for consult: RLE pain/low back pain Narrative: Neha Blanc a pleasant 75 year old female presents for evaluation of RLE pain and weakness as well as low back pain. Pt has longstanding hx of low back pain, however in November of 2024 she noticed increased pain as well as numbness tingling and weakness of RLE without cause or injury. PCP Dr Alvarez was able to update emg which revealed chronic L5/S1 radiculopathy. Pain 6/10 increasing to 8/10 with standing, walking, bending, activity. Pain improved with sitting, lying, forward flexion, and sleeping. pt denies fall/injury. no prior lumbar surgery. she failed to benefit from 5 weeks of PT at [facility] in [place] as of 12/09. continues to engage in HEP as tolerated. currently utilizing duloxetine, tylenol, and nabumetone with mild relief. follows with rheumatology for RA. we started pt on gabapentin 100mg TID last visit, noting mild relief without side effects. recently underwent lumbar MRI with results below. cc:: CC: [facility] Hernandez [facility] Social History Little interest or pleasure in doing things: not at all Feeling down, depressed, or hopeless: not at all Meds Home Medications and Allergies Home Medications �Medication �Instructions �Recorded �Confirmed �Type aspirin 81 mg capsule 81 mg PO DAILY 02/18/2501/09 History atorvastatin 10 mg tablet mg 02/18/25 History duloxetine 60 mg capsule,delayed mg PO 02/18/25 Histo ry release folic acid 800 mcg tablet 800 mcg PO DAILY 02/18/25 History gabapentin 100 mg tablet 100 mg PO TID 02/18/2502/18 History gabapentin 100 mg tablet 100 mg PO TID #90 tabs 02/18 Rx metformin 1,000 mg tablet mg 02/18/25 History methotrexate sodium 2.5 mg tablet mg 02/18/25 History nabumetone 750 mg tablet mg 02/18/25 History omeprazole 20 mg capsule,delayed mg 02/18/25 History release Allergies Allergy/AdvReac Type Severity Reaction Status Date / Time clindamycin Allergy Severe Rash Verified 06/27/24 17:12 hydroxychloroquine (From Allergy Severe Rash Verified 06/27/24 17:12 Plaquenil) Exam Constitutional Documenting provider has reviewed patient's vital signs: yes Common normals: no apparent distress, oriented x3, healthy appearing, alert and well nourished General appearance: cooperative HENMA Common normals: normocephalic, hearing grossly normal bilaterally and moist oral mucous membranes Head and scalp: normocephalic Eye Common normals: PERRL Pupil: PERRL Neck & C-Spine Common normals: full ROM General: normal visual inspection Chest Common normals: inspection of chest normal Respiratory Common normals: normal respiratory effort, no retractions and no use of accessory muscles Back & Pelvis Lumbar spine/lower back: ROM limited, pain with ROM and straight leg raise positive right Other: decreased sensation to right L3,4,5,s1 notable tenderness l3-l5 facets, positive facet loading strength 3.5/5 in RLE and 5/5 in LLE Neuro Common normals: oriented x3 Sensorium/orientation: alert Psych Common normals: mental status grossly normal, thought process normal, cooperative, affect normal, speech normal and activity/motor behavior normal Speech: normal speech Thought process: normal thought process Results Imaging Lumbar MRI : Attestation: I have reviewed the pertinent imaging results. Radiologist's impression: L1-2 :Disc space narrowing with endplate changes. Diffuse disc bulge and endplate spurring. Mild central canal stenosis. Posterior element hypertrophy. Mild bilateral neural foraminal narrowing L2-3: Marked disc space narrowing with degenerative endplate change. Diffuse disc bulge with endplate spurring. Moderate to severe central canal stenosis. Moderate bilateral neural foraminal narrowing L3-4: Moderate disc space narrowing. Diffuse disc bulge and endplate spurring. Severe central canal stenosis. Posterior element hypertrophy. Marked bilateral neural foraminal narrowing L4-5: Moderate disc space narrowing. Diffuse disc bulge. Marked central canal stenosis. Posterior element hypertrophy. Marked bilateral neural foraminal narrowing L5-S1: Mild disc space narrowing. Mild anterolisthesis. Moderate central canal stenosis. Diffuse disc bulge. Posterior element hypertrophy. Moderate bilateral neural foraminal narrowing Additional Findings Additional findings: If on a controlled substance or opioids, I have checked an OARRS report on this patient and there are no aberrancies noted in the prescribing history.��If on a controlled substance or opioid a drug screen was completed and reviewed within the last year, and if there has not been a drug screen completed we ordered one today to monitor higher risk, state monitored pain medication use. As part of providing excellent, safe, comprehensive care, the following was completed at our patient's visit: 1. A medication reconciliation and review to ensure accurate knowledge of current/active medications, including asking our patients to inform us about any [id number] medications or herbal remedies/nutritional suppleme nts/alternative remedies. 2. A review to specifically ensure our patients have had annual screening for screening for depression, screening for tobacco use, and screening for unhealthy alcohol use. For concerning screenings had a discussion with the patient, provided patient education, and recommended follow-up with primary care provider when appropriate. If patient noted with a risk of falling, they received education on strength, gait, and balance training to prevent future risk of falling. Portions of this note may have been carried over from the previous visit and updated as appropriate. Please note this office utilizes paper charting in addition to the electronic medical record. A list of current medications, vitals, and PMH is available there as the clinical staff outside of myself do not have access to [employer]Auto charting during the clinic day operations. As part of providing quality comprehensive care the current medications, vitals, and PMH were reviewed in the paper chart. Assessment and Plan Assessment and Plan (1) Lumbar stenosis with neurogenic claudication: Plan 75 year old female with significant multilevel lumbar stenosis and chronic low back pain > 6 months unresponsive to PT, heat, ice, tylenol, NSAIDs. increase gabapentin 300mg TID, risks vs benefits reviewed. proceed with right L3-4 L4-5 TFESI under fluoroscopy. As discussed with pt, i recommend she meet with a NS to discuss surgical intervention. [facility], previously saw dr weaver for CTS surgery. f/u 2 weeks after injection
--- OUTSIDE RECORDS SUMMARY | 2025-03-19 13:33 | XMS_ITS | Patient Health Record ---
Author Organization [facility] in [place] Address [address] [place] [address] Care Team Providers Care Dragger Out Name Role Phone None, Unknown or Primary Care Provider Unavailab le Reason For Referral No Information Plan Of Treatment No Information Insurance Providers Payer Name Payer Address Payer Phone Subscriber Number Group Number Insured Name Patient Relationship to Insured Coverage Start Date Coverage End Date [place] [address] [place] [address] [id number] Neha Blanc Self - patient is the insured 7 [employer] 8 MEDICARE SUPP CLAIM DEPT [id number] [place] [id number] Neha Blanc Self - patient is the insured 7
--- OUTSIDE RECORDS SUMMARY | 2025-03-19 13:33 | XMS_ITS | Encounter Summary ---
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 Not on file documented as of this encounter Plan of Treatment Upcoming Encounters Date Type Department Care Team (Late st Contact Info) Description 05/19/2025 3:00 PM EDT Procedure [facility] [address] [facility] [place] [phone] Osei Arevalo DPM [address] [place], [place] [phone] documented as of this encounter Procedures Procedure Name Priority Date/Time Associated Diagnosis Comments ELECTROCARDIOGRAM REPORT Routine 9:07 AM EST documented in this encounter Results * Electrocardiogram Report (10/04/2023 9:07 AM EST) Will Alvarez MD IN CLINIC/BEDSIDE ORDERABLES Final Result documented in this encounter Visit Diagnoses Not on filedocumented in this encounter Care Teams Stem Setter Relationship Specialty Start Date End Date Will Alvarez MD 112 [facility] 100 [place] [address] PCP - ACO Reach 02/08/23 Will Alvarez MD 112 [facility] 100 [place] [address] PCP - General Family Medicine 02/10/25 Slava Magana DO 112 [facility] 150 [place] [address] Referring Physician Orthopaedic Surgery 10/25/23 Jeet Aguirre MD [address] [facility] Professional building [address] [place] [phone] Referring Physician Rheumatology 10/25/23 Osei Arevalo DPM [address] [place] [address] Referring Physician Podiatry 10/25/23 documented as of this encounter
--- OUTSIDE RECORDS SUMMARY | 2025-03-19 13:33 | XMS_ITS | Clinical Summary ---
Author Organization [employer] [facility] Address [id number] [address] [place] [address] Care Team Providers Care Local Delivery Truck Driver Name Role Phone Will Alvarez MD Primary Care Provider + [phone] Allergies Active Allergy Reactions Criticality Noted Date Comments Levofloxacin Rash Low 05/02/2023 Hydroxychloroquine Rash Low 10/20/2020 Medications methotrexate 2.5 mg chemo tabletIndications :rheumatoid arthritis Take 1 tablet by mouth once a week 8 tabs every Sunday Indications: rheumatoid arthritis Active setwymnu-qdjo-WJ- calcium &mins (THERAGRAN-M) 9 mg iron-400 mcg [...] Recorded Do you need help finding a [employer] career center and/or a training program? No [...] Left TSR Medical Devices Implanted Type Area Stewardesses Teacher Device Identifier Shelf Expiration Date Model / Serial / Lot Bearing Hum 36mm Cmprh Std Shldr Prlng Rvrs - [id number] Implanted:Qty : 1 on 05/16/2023 by Joshua Rincon MD at [facility] Bearing Left: Shoulder [employer] [id number] 11/26/2027 [id number] / / [id number] Cmnt Bn Bio 40gm Rpl [id number] +[id number] - Sna - [id number] Implanted:Qty : 2 on 11/10/2020 by Slava Magana DO at [facility] Cement Right: Knee [employer] 09/16/2024 [id number] / NA / [id number] Cmpt Fem 5 Kn Rt Crcte Rtn - Sna - [id number] Implanted:Qty : 1 on 11/10/2020 by Slava Magana DO at [facility] Orthopedic Implant Right: Knee [employer] 12/15/2028 [id number] / NA / [id number] Cmpt Ptlr 35mm Medialized Dome - Sna - [id number] Implanted:Qty : 1 on 11/10/2020 by Slava Magana DO at [facility] Orthopedic Implant Right: Knee [employer] 06/16/2025 [id number] / NA / [id number] Ins Tib 5 5mm Cr Fx Brng - Sna - [id number] Implanted:Qty : 1 on 11/10/2020 by Slava Magana DO at [facility] Orthopedic Implant Right: Knee ORTHOPAEDICS 07/17/2025 [id number] / NA / [id number] Impl Kn Fx Brng W Spcl Ins Construct Rpl [id number] - Sna - [id number] Implanted:Qty : 1 on 11/10/2020 by Slava Magana DO at [facility] Orthopedic Implant Right: Knee ORTHOPAEDICS [id number] / NA / NA Baseplate Krishna Cmprh Sm Shldr Aug Tpr Adpr - [id number] Implanted:Qty : 1 on 05/16/2023 by Joshua Rincon MD at [facility] Orthopedic Implant Left: Shoulder [employer] [id number] 04/26/2028 [id number] / / [id number] Component Krishna 36mm Std Glenosphere Clr Cd Cmprh Versa-Dial - [id number] Implanted:Qty : 1 on 05/16/2023 by Joshua Rincon MD at [facility] Orthopedic Implant Left: Shoulder [employer] [id number] 10/18/2032 [id number] / / [id number] Stem Hum 55mm 11mm Cmprh Por Mt Shldr Rvrs Sys - [id number] Implanted:Qty : 1 on 05/16/2023 by Joshua Rincon MD at [facility] Orthopedic Implant Left: Shoulder [employer] 01/09/2033 [id number] / / [id number] Tray Hum Cmprh Std Shldr Rvrs - [id number] Implanted:Qty : 1 on 05/16/2023 by Joshua Rincon MD at [facility] Orthopedic Implant Left: Shoulder [employer] [id number] 04/09/2033 [id number] / / [id number] Bsplt Tib 5 Kn Cmnt Fx Brng - Sna - [id number] Implanted:Qty : 1 on 11/10/2020 by Slava Magana DO at [facility] Plate Right: Knee JJ [employer] 06/16/2030 [id number] / NA / [id number] Screw Bn 30mm 6.5mm Cntr Hx Hd Ti Cmprh 3.5mm Strl Rvrs - [id number] Implanted:Qty : 1 on 05/16/2023 by Joshua Rincon MD at [facility] Screw Left: Shoulder [employer] 11/09/2032 [id number] / / [id number] Screw Bn 20mm 4.75mm Lck Fx Ang Hx Hd Ti Cmprh 3.5mm Strl - [id number] Implanted:Qty : 1 on 05/16/2023 by Joshua Rincon MD at [facility] Screw Left: Shoulder [employer] [id number] 02/01/2033 [id number] / / [id number] Screw Bn 15mm 4.75mm Lck Fx Ang Hx Hd Ti Cmprh 3.5mm Strl - [id number] Implanted:Qty : 1 on 05/16/2023 by Joshua Rincon MD at [facility] Screw Left: Shoulder [employer] [id number] 04/01/2033 [id number] / / [id number] Screw Bn 15mm 4.75mm Lck Fx Ang Hx Hd Ti Cmprh 3.5mm Strl - [id number] Implanted:Qty : 1 on 05/16/2023 by Joshua Rincon MD at [facility] Screw Left: Shoulder [employer] [id number] 04/01/2033 [id number] / / [id number] Screw Bn 20mm 4.75mm Va Hx Hd Ti Cmprh 3.5mm Strl Rvrs Shldr - [id number] Implanted:Qty : 1 on 05/16/2023 by Joshua Rincon MD at [facility] Screw Left: Shoulder [employer] [id number] 01/05/2032 [id number] / / [id number] Insurance MEDICARE COMMERCIAL Advance Directives Documents on File Type Date Recorded Patient Evaporator Expl anation Durable Power of Washing And Screening Plant Supervisor 05/02/2023 12:37 PM POA * Full Code (Latest Code Status on File) Date Activated Date Inactivated Comments 05/16/2023 10:16 AM 05/16/2023 5:16 PM * Full Code Date Activated Date Inactivated Comments 11/10/2020 11:25 AM 11/11/2020 7:52 PM Care Teams Local Delivery Truck Driver Relationship Specialty Start Date End Date Will Alvarez MD PCP - General Family Medicine 10/20/20
--- OUTSIDE RECORDS SUMMARY | 2025-03-19 13:33 | XMS_ITS | Encounter Summary ---
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 Not on file documented as of this encounter Plan of Treatment Upcoming Encounters Date Type Department Care Team (Late st Contact Info) Description 05/19/2025 3:00 PM EDT Procedure Visit [facility] [address] [place] [address] Osei Arevalo DPM [address] [place], [place] [address] documented as of this encounter Visit Diagnoses Not on filedocumented in this encounter Additional Health Concerns Assessment Noted Time PHQ-9 Depression Total Score: 5 02/03/20 25 9:00 AM EDT documented as of this encounter Care Teams Digital Press Operator Relationship Specialty Start Date End Date Will Alvarez MD [address] [address] PCP - ACO Reach 02/08/23 Will Alvarez MD [address] [address] PCP - General Family Medicine 02/10/25 Jeet Aguirre MD [address] [facility] Professional building [address] [place] [id number] Referring Physician Rheumatology 10/25/23 Osei Arevalo DPM [address] [place] [address] Referring Physician Podiatry 10/25/23 documented as of this encounter
--- OUTSIDE RECORDS SUMMARY | 2025-03-19 13:33 | XMS_ITS | Encounter Summary ---
Author Organization [facility] Address [address] [place] [address] Care Team Providers Care Chinese Herbalist Name Role Phone Will Alvarez MD Unavailable [phone] Slava Magana DO Unavailable [phone] Jeet Aguirre MD Unavailable [phone] Osei Arevalo DPM Unavailable [phone] Will Alvarez MD Primary Care Provider + [phone] Encounter Details Date Type Department Care Team (Late st Contact Info) Description 08/19/2024 Orders Only [facility] [address] [place] [address] Angie Early, OD [address] [place] [address] Social History Tobacco Use Types Packs/Day Years [...] 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 Not on file documented as of this encounter Plan of Treatment Upcoming Encounters Date Type Department Care Team (Late st Contact Info) Description 05/19/2025 3:00 PM EDT Procedure Visit [facility] [address] [facility] [address] Osei Arevalo, DPKaleigh [address] [place], [place] [address] documented as of this encounter Procedures Procedure [...] documented as of this encounter Care Teams Chinese Herbalist Relationship Specialty Start Date End Date Will Alvarez MD 112 [facility] 100 [place] [address] PCP - ACO Reach 02/08/23 Will Alvarez MD 112 [facility] 100 [place] [address] (Fax) PCP - General Family Medicine 02/10/25 Slava Magana DO 112 [facility] [address] [place] [address] Referring Physician Orthopaedic Surgery 10/25/23 Jeet [facility]irre MD [address] [facility] [address] [place] [address] Referring Physician Rheumatology 10/25/23 Osei Arevalo DPM [address] [place] [id number] Referring Physician Podiatry 10/25/23 documented as of this encounter
--- OUTSIDE RECORDS SUMMARY | 2025-03-19 13:33 | XMS_ITS | Encounter Summary ---
Author Organization [facility] Address [address] [place] [address] Care Team Providers Care Cardiology Rn Name Role Phone Will Alvarez MD Unavailable [phone] Slava Magana DO Unavailable [phone] Jeet Aguirre MD Unavailable [phone] Osei Arevalo DPM Unavailable [phone] Will Alvarez MD Primary Care Provider [phone] Encounter Details Date Type Department Care Team (Late st Contact Info) Description 01/07/2025 Orders Only [facility] [address] [place] [address] Will Alvarez MD [address] [place], [place] [address] Social History Tobacco Use Types Packs/Day Years [...] EDT Procedure Visit [facility] [address] [place] [address] Osei Arevalo DPM [address] [place] [address] documented as of this encounter Visit Diagnoses Not on filedocumented in this encounter Additional Health Concerns Assessment Noted Time PHQ-9 Depression Total Score: 4 02/05/20 24 8:00 AM EDT documented as of this encounter Care Teams Cardiology Rn Relationship Specialty Start Date End Date Will Alvarez MD [address] [place] [address] PCP - ACO Reach 02/08/23 Will Alvarez MD [address] [place] [address] PCP - General Family Medicine 02/10/25 Slava Magana DO [address] [place] [address] Referring Physician Orthopaedic Surgery 10/25/23 Jeet Aguirre MD [address] [facility] Professional building 1 [place] [address] Referring Physician Rheumatology 10/25/23 Osei Arevalo DPM [address] [place], [place] [address] Referring Physician Podiatry 10/25/23 documented as of this encounter
--- OUTSIDE RECORDS SUMMARY | 2025-03-19 13:33 | XMS_ITS | Encounter Summary ---
Author Organization [facility] Address [address] [place] [address] Care Team Providers Care Vascular Technologist Name Role Phone Will Alvarez MD Unavailable [phone] Slava Magana DO Unavailable [phone] Jeet Aguirre MD Unavailable [phone] Osei Arevalo DPM Unavailable [phone] Will Alvarez MD Primary Care Provider + [phone] Encounter Details Date Type Department Care Team (Late st Contact Info) Description 02/20/2023 Abstract [facility] [address] [place] [address] Osei Arevalo, DPM [address] [place], [place] [address] Social History Tobacco Use Types Packs/Day Years [...] 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 Not [...] Procedure Visit [facility] [address] [place] [address] Osei Arevalo DPM [address] [place], [place] [address] documented as of this encounter Visit Diagnoses Not on filedocumented in this encounter Care Teams Vascular Technologist Relationship Specialty Start Date End Date Will Alvarez MD 112 [facility] 100 [place] [address] PCP - ACO Reach 02/08/23 Will Alvarez MD [address] [facility] 100 [place] [address] PCP - General Family Medicine 02/10/25 Slava Magana DO [address] [place] [address] Referring Physician Orthopaedic Surgery 10/25/23 Jeet Aguirre MD [address] [facility] Professional building 1 [place] [address] Referring Physician Rheumatology 10/25/23 Osei Arevalo DPM [address] [place], [place] [address] Referring Physician Podiatry 10/25/23 documented as of this encounter
--- OUTSIDE RECORDS SUMMARY | 2025-03-19 13:33 | XMS_ITS | Encounter Summary ---
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 on file documented as of this encounter Plan of Treatment Upcoming Encounters Date Type Department Care Team (Late st Contact Info) Description 05/19/2025 3:00 PM EDT Procedure Visit [facility] [address] [facility] [place] [address] Osei Arevalo DPM [address] [place], [place] [address] documented as of this encounter Visit Diagnoses Not on filedocumented in this encounter Care Teams Pattern Generator Operator Relationship Specialty Start Date End Date Will Alvarez MD [address] [place] [address] PCP - ACO Reach 02/08/23 Will Alvarez MD [address] [place] [address] PCP - General Family Medicine 02/10/25 Slava Magana DO [address] [place] [address] Referring Physician Orthopaedic Surgery 10/25/23 Jeet Aguirre MD [address] [facility] Professional building 1 [place] [address] Referring Physician Rheumatology 10/25/23 Osei Arevalo DPM [address] [place], [place] [address] Referring Physician Podiatry 10/25/23 documented as of this encounter
--- OUTSIDE RECORDS SUMMARY | 2025-03-19 13:33 | XMS_ITS | Encounter Summary ---
Author Organization [facility] Address [address] [place] [address] Care Team Providers Care Snuff Box Finisher Name Role Phone Will Alvarez MD Unavailable [phone] Slava Magana DO Unavailable [phone] Jeet Aguirre MD Unavailable [phone] Osei Arevalo DPM Unavailable [phone] Will Alvarez MD Primary Care Provider + [phone] Reason for Visit * Reason Comments Med Refill Encounter Details Date Type Department Care Team (Late st Contact Info) Description 05/01/2024 Refill [facility] [address] [phone] Linda Perez NP Social History Tobacco Use [...] EDT Procedure Visit [facility] [address] [place] [address] Osei Arevalo DPM [address] [place], [place] [address] documented as of this encounter Visit Diagnoses Not on filedocumented in this encounter Additional Health Concerns Assessment Noted Time PHQ-9 Depression Total Score: 4 02/05/20 24 8:00 AM EDT documented as of this encounter Care Teams Snuff Box Finisher Relationship Specialty Start Date End Date Will Alvarez MD [address] [place] [address] PCP - ACO Reach 02/08/23 Will Alvarez MD [address] [place] [address] PCP - General Family Medicine 02/10/25 Slava Magana DO [address] [place] [address] Referring Physician Orthopaedic Surgery 10/25/23 Jeet Aguirre MD [address] [facility] Professional building 1 [place] [address] Referring Physician Rheumatology 10/25/23 Osei Arevalo DPM [address] [place], [place] [address] Referring Physician Podiatry 10/25/23 documented as of this encounter
--- OUTSIDE RECORDS SUMMARY | 2025-03-19 13:33 | XMS_ITS | Encounter Summary ---
Author Organization [employer] tem Address [id number] [address] [place] [address] Care Team Providers Care Automotive Fuel Systems Converter Name Role Phone Will Alvarez MD Primary Care Provider + [phone] Encounter Details Date Type Department Care Team (Late st Contact Info) Description 01/29/2023 Orders Only [facility] [address] [place] [address] Susan Ramirez, JEAN-CLAUDE Left rotator cuff tear [...] Recorded Do you need help finding a [facility] career center and/or a training program? [...] documented as of this encounter Care Teams Automotive Fuel Systems Converter Relationship Specialty Start Date End Date Will Alvarez MD PCP - General Family Medicine 10/20/20 documented as of this encounter
--- OUTSIDE RECORDS SUMMARY | 2025-03-19 13:33 | XMS_ITS | Clinical Summary ---
Author Organization [facility] Address [address] [place] [address] Phone Care Team Providers Care Cardiology Consultant Name Role Phone Unavailable Primary Care Provider [...]
--- OUTSIDE RECORDS SUMMARY | 2025-03-19 13:33 | XMS_ITS | Encounter Summary ---
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 file documented as of this encounter Plan of Treatment Upcoming Encounters Date Type Department Care Team ( Contact Info) Description 05/19/2025 3:00 PM EDT Procedure Visit [facility] [address] [place] [address] Osei Arevalo DPM [address] [place] [address] documented as of this encounter Visit Diagnoses Not on filedocumented in this encounter Additional Health Concerns Assessment Noted Time PHQ-9 Depression Total Score: 5 02/03/20 25 9:00 AM EDT documented as of this encounter Care Teams Children'S Nursery Assistant Relationship Specialty Start Date End Date Will Alvarez MD [address] [place] [address] PCP - ACO Reach 02/08/23 Will Alvarez MD [address] [address] PCP - General Family Medicine 02/10/25 Jeet Aguirre MD [address] [facility] Professional building 1 [place] [address] Referring Physician Rheumatology 10/25/23 Osei Arevalo DPM [address] [place] [address] Referring Physician Podiatry 10/25/23 documented as of this encounter
--- OUTSIDE RECORDS SUMMARY | 2025-03-19 13:33 | XMS_ITS | Encounter Summary ---
Author Organization [facility] Address [address] [place] [address] Care Team Providers Care Staff Psychologist Name Role Phone Will Avlarez MD Unavailable [phone] Slava Magana DO Unavailable [phone] Jeet Aguirre MD Unavailable [phone] Osei Arevalo DPM Unavailable [phone] Will Alvarez MD Primary Care Provider Encounter Details Date Type Department Care Team (Late st Contact Info) Description 08/28/2023 Orders Only [facility] [address] [place] [address] Jeet Aguirre MD [address] [facility] Professional building 1 [place] [address] Social History Tobacco Use Types [...] 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 Not on file documented as of this encounter Plan of Treatment Upcoming Encounters Date Type Department Care Team (Late st Contact Info) Description 05/19/2025 3:00 PM EDT Procedure Visit [facility] [address] [facility] [place] [address] Osei Arevalo, DPKaleigh [address] [place], [place] [address] documented as of this encounter Procedures Procedure [...] on filedocumented in this encounter Care Teams Staff Psychologist Relationship Specialty Start Date End Date Will Alvarez MD [address] [place] [address] PCP - ACO Reach 02/08/23 Will Alvarez MD [address] [place] [address] PCP - General Family Medicine 02/10/25 Slava Magana DO [address] [place] [address] Referring Physician Orthopaedic Surgery 10/25/23 Jeet Aguirre MD [address] [facility] Professional building 1 [place] [address] Referring Physician Rheumatology 10/25/23 Osei Arevalo DPM [address] [place] [address] Referring Physician Podiatry 10/25/23 documented as of this encounter
--- OUTSIDE RECORDS SUMMARY | 2025-03-19 13:33 | XMS_ITS | Encounter Summary ---
Author Organization [facility] Address [address] [place] [address] Care Team Providers Care Film Waxer Name Role Phone Will Alvarez MD Unavailable Slava Magana DO Unavailable [phone] Jeet Aguirre MD Unavailable Osei Arevalo DPM Unavailable [phone] Will Alvarez MD Primary Care Provider [phone] Encounter Details Date Type Department Care Team (Late st Contact Info) Description 08/07/2023 Abstract [facility] [address] [place] [address] Joshua Rincon MD [address] [facility] [place] [address] Social History Tobacco Use Types [...] 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 Not on file documented as of this encounter Plan of Treatment Upcoming Encounters Date Type Department Care Team (Late st Contact Info) Description 05/19/2025 3:00 PM EDT Procedure Visit [facility] [address] [place] [address] Osei Arevalo DPM [address] [place], [place] [address] documented as of this encounter Visit Diagnoses Not on filedocumented in this encounter Care Teams Film Waxer Relationship Specialty Start Date End Date Will Alvarez MD [address] [place] [address] PCP - ACO Reach 02/08/23 Will Alvarez MD [address] [place] [address] PCP - General Family Medicine 02/10/25 Slava Magana DO [address] [place] [address] Referring Physician Orthopaedic Surgery 10/25/23 Jeet Aguirre MD [address] Professional building 1 [place] [address] Referring Physician Rheumatology 10/25/23 Osei Arevalo DPM [address] [place], [place] [address] Referring Physician Podiatry 10/25/23 documented as of this encounter
--- OUTSIDE RECORDS SUMMARY | 2025-03-19 13:33 | XMS_ITS | Encounter Summary ---
Author Organization [facility] Address [address] [place] [address] Care Team Providers Care Back Filler Operator Name Role Phone Will Alvarez MD Unavailable [phone] Slava Magana DO Unavailable [phone] Jeet Aguirre MD Unavailable [phone] Osei Arevalo DPM Unavailable [phone] Will Alvarez MD Primary Care Provider [phone] Encounter Details Date Type Department Care Team (Late st Contact Info) Description 10/30/2023 Abstract [facility] [address] [place] [address] Slava Magana, DO [address] [id number] Social History Tobacco Use Types Packs/Day Years [...] EDT Procedure Visit [facility] [address] [place] [address] Osei Arevalo DPM [address] [place], [place] [address] documented as of this encounter Visit Diagnoses Not on filedocumented in this encounter Care Teams Back Filler Operator Relationship Specialty Start Date End Date Will Alvarez MD [address] [place] [address] PCP - ACO Reach 02/08/23 Will Alvarez MD [address] [place] [address] PCP - General Family Medicine 02/10/25 Slava Magana DO [address] [place] [address] Referring Physician Orthopaedic Surgery 10/25/23 Jeet Aguirre MD [address] [facility] 1 [place] [address] Referring Physician Rheumatology 10/25/23 Osei Arevalo DPM [address] [place], [place] [address] Referring Physician Podiatry 10/25/23 documented as of this encounter
--- OUTSIDE RECORDS SUMMARY | 2025-03-19 13:33 | XMS_ITS | Encounter Summary ---
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 Not on file documented as of this encounter Plan of Treatment Upcoming Encounters Date Type Department Care Team (Late st Contact Info) Description 05/19/2025 3:00 PM EDT Procedure Visit [facility] [address] [facility] [place] [address] Osei Arevalo DPM [address] [place], [place] [address] documented as of this encounter Visit Diagnoses Not on filedocumented in this encounter Care Teams Ship Laborer Relationship Specialty Start Date End Date Will Alvarez MD [address] [place] [address] PCP - ACO Reach 02/08/23 Will Alvarez MD [address] [place] [address] PCP - General Family Medicine 02/10/25 Slava Magana DO [address] [place] [address] Referring Physician Orthopaedic Surgery 10/25/23 Jeet Aguirre MD [address] [facility] Professional building 1 [place] [phone] Referring Physician Rheumatology 10/25/23 Osei Arevalo DPM [address] [place], [place] [address] Referring Physician Podiatry 10/25/23 documented as of this encounter
--- OUTSIDE RECORDS SUMMARY | 2025-03-19 13:33 | XMS_ITS | Encounter Summary ---
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 Not on file documented as of this encounter Plan of Treatment Upcoming Encounters Date Type Department Care Team (Late st Contact Info) Description 05/19/2025 3:00 PM EDT Procedure Visit [facility] [address] [place] [address] Osei Arevalo DPM [address] [place], [place] [address] documented as of this encounter Visit Diagnoses Not on filedocumented in this encounter Care Teams Toy Painter Relationship Specialty Start Date End Date Will Alvarez MD [address] [place] [address] PCP - ACO Reach 02/08/23 Will Alvarez MD [address] [place] [address] PCP - General Family Medicine 02/10/25 Slava Magana DO [address] [place] [address] Referring Physician Orthopaedic Surgery 10/25/23 Jeet Aguirre MD [address] [facility] Professional building 1 [place] [address] Referring Physician Rheumatology 10/25/23 Osei Arevalo DPM [address] [place], [place] [address] Referring Physician Podiatry 10/25/23 documented as of this encounter
--- OUTSIDE RECORDS SUMMARY | 2025-03-19 13:33 | XMS_ITS | Encounter Summary ---
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 [address] [place] [address] (Fax) PCP - General Family Medicine 02/10/25 Slava Magana DO [address] [place] [address] Referring Physician Orthopaedic Surgery 10/25/23 Jeet [facility]irre MD [address] [facility] [address] [place] [phone] Referring Physician Rheumatology 10/25/23 Osei Arevalo DPM [address] [place] [address] Referring Physician Podiatry 10/25/23 documented as of this encounter
--- OUTSIDE RECORDS SUMMARY | 2025-03-19 13:33 | XMS_ITS | Encounter Summary ---
Author Organization [facility] Address [address] [place] [address] Care Team Providers Care Maple Sugar Maker Name Role Phone Will Alvarez MD Unavailable [phone] Jeet Aguirre MD Unavailable Osei Arevalo DPM Unavailable Will Alvarez MD Primary Care Provider Encounter Details Date Type Department Care Team (Late st Contact Info) Description 03/16/2025 Abstract [facility] [address] [place] [address] Will Alvarez MD 112 [facility] [address] [place] [address] Social History Tobacco Use Types Packs/Day Years [...] EDT Procedure Visit [facility] [address] [place] [address] Osei Arevalo DPM [address] [place], [place] [address] documented as of this encounter Visit Diagnoses Not on filedocumented in this encounter Additional Health Concerns Assessment Noted Time PHQ-9 Depression Total Score: 5 02/03/20 25 9:00 AM EDT documented as of this encounter Care Teams Maple Sugar Maker Relationship Specialty Start Date End Date Will Alvarez MD [address] [address] PCP - ACO Reach 02/08/23 Will Alvarez MD [address] [address] PCP - General Family Medicine 02/10/25 Jeet Aguirre MD [address] [facility] Professional building [address] [place] [phone] Referring Physician Rheumatology 10/25/23 Osei Arevalo DPM [address] [place] [address] Referring Physician Podiatry 10/25/23 documented as of this encounter
--- OUTSIDE RECORDS SUMMARY | 2025-03-19 13:33 | XMS_ITS | Encounter Summary ---
Author Organization [facility] Address [address] [place] [address] Care Team Providers Care Cook 3 Pastry Name Role Phone Will Alvarez MD Unavailable [phone] Jeet Aguirre MD Unavailable [phone] Osei Arevalo DPM Unavailable [phone] Will Alvarez MD Primary Care Provider [phone] Encounter Details Date Type Department Care Team (Late Contact Info) Description 02/18/2025 Orders Only [facility] [address] [place] [address] Lynn Aguiar, ERI Social History Tobacco Use Types Packs/Day [...] EDT Procedure Visit [facility] [address] [place] [address] Osei Arevalo DPM [address] [place], [place] [address] documented as of this encounter Visit Diagnoses Not on filedocumented in this encounter Additional Health Concerns Assessment Noted Time PHQ-9 Depression Total Score: 5 02/03/20 25 9:00 AM EDT documented as of this encounter Care Teams Cook 3 Pastry Relationship Specialty Start Date End Date Will Alvarez MD [address] [place] [address] PCP - ACO Reach 02/08/23 Will Alvarez MD [address] [place] [address] PCP - General Family Medicine 02/10/25 Jeet Aguirre MD [address] [facility] Professional building 1 [place] [address] Referring Physician Rheumatology 10/25/23 Osei Arevalo DPM [address] [place], [place] [address] Referring Physician Podiatry 10/25/23 documented as of this encounter
--- OUTSIDE RECORDS SUMMARY | 2025-03-19 13:33 | XMS_ITS | Encounter Summary ---
Author Organization [facility] Address [address] [place] [address] Care Team Providers Care Dermatology Procedural Physician Name Role Phone Will Alvarez MD Unavailable [phone] Slava Magana DO Unavailable [phone] Jeet Aguirre MD Unavailable [phone] Osei Arevalo DPM Unavailable [phone] Will Alvarez MD Primary Care Provider [phone] Reason for Visit * Reason Comments Med Refill Encounter Details Date Type Department Care Team (Late st Contact Info) Description 04/16/2023 Refill [facility] [address] [phone] iLnda Perez, SCRAP BUNCH MAKER Presence of right artificial knee joint (Primary [...] EDT Procedure Visit [facility] [address] [place] [address] Osei Arevalo DPM [address] [place], [place] [address] documented as of this encounter Visit Diagnoses Diagnosis Presence of right artificial knee joint- Primary documented in this encounter Care Teams Dermatology Procedural Physician Relationship Specialty Start Date End Date Will Alvarez MD [address] [place] [address] PCP - ACO Reach 02/08/23 Will Alvarez MD [address] [place] [address] PCP - General Family Medicine 02/10/25 Slava Magana DO [address] [place] [address] Referring Physician Orthopaedic Surgery 10/25/23 Jeet Aguirre MD [address] Professional building 1 [place] [address] Referring Physician Rheumatology 10/25/23 Osei Arevalo DPM [address] [place], [place] [address] Referring Physician Podiatry 10/25/23 documented as of this encounter
--- OUTSIDE RECORDS SUMMARY | 2025-03-19 13:33 | XMS_ITS | Encounter Summary ---
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 Not on file documented as of this encounter Plan of Treatment Upcoming Encounters Date Type Department Care Team (Late st Contact Info) Description 05/19/2025 3:00 PM EDT Procedure Visit [facility] [address] [place] [address] Osei Arevalo DPM [address] [place], [place] [address] documented as of this encounter Visit Diagnoses Not on filedocumented in this encounter Care Teams Convolute Tube Winder Relationship Specialty Start Date End Date Will Alvarez MD [address] [place] [address] PCP - ACO Reach 02/08/23 Will Alvarez MD [address] [place] [address] PCP - General Family Medicine 02/10/25 Slava Magana DO [address] [place] [address] Referring Physician Orthopaedic Surgery 10/25/23 Jeet Aguirre MD [address] [facility] Professional [facility] 1 [place] [address] Referring Physician Rheumatology 10/25/23 Osei Arevalo DPM [address] [place], [place] [address] Referring Physician Podiatry 10/25/23 documented as of this encounter
--- OUTSIDE RECORDS SUMMARY | 2025-03-19 13:33 | XMS_ITS | Encounter Summary ---
Author Organization [facility] Address [address] [place] [address] Care Team Providers Care Devil Dog Name Role Phone Will Alvarez MD Unavailable [phone] Slava Magana DO Unavailable [phone] Jeet Aguirre MD Unavailable [phone] Osei Arevalo DPM Unavailable [phone] Will Alvarez MD Primary Care Provider [phone] Encounter Details Date Type Department Care Team (Late st Contact Info) Description 07/09/2024 Orders Only [facility] [address] [place] [address] Will Alvarez MD [address] [place], [place] [address] Social History Tobacco Use Types Packs/Day Years [...] 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 Not on file documented as of this encounter Plan of Treatment Upcoming Encounters Date Type Department Care Team (Late st Contact Info) Description 05/19/2025 3:00 PM EDT Procedure Visit [facility] [address] [place] [address] Osei Arevalo DPKaleigh [address] [place], [place] [address] documented as of this encounter Procedures Procedure [...] documented as of this encounter Care Teams Devil Dog Relationship Specialty Start Date End Date Will Alvarez MD [address] [facility] [address] [place] [address] PCP - ACO Reach 02/08/23 Will Alvarez MD [address] [facility] [address] [place] [address] (Fax) PCP - General Family Medicine 02/10/25 Slava Magana DO [address] [place] [address] Referring Physician Orthopaedic Surgery 10/25/23 Jeet Aguirre MD [address] Professional building 1 [place] [address] Referring Physician Rheumatology 2/8/24 Osei Arevalo DPM [address] [place] [address] Referring Physician Podiatry 10/25/23 documented as of this encounter
--- OUTSIDE RECORDS SUMMARY | 2025-03-19 13:33 | XMS_ITS | Encounter Summary ---
Author Organization [facility] Address [address] [place] [address] Care Team Providers Care Tar Heater Operator Name Role Phone Will Alvarez MD Unavailable Slava Magana DO Unavailable [phone] Jeet Aguirre MD Unavailable Osei Arevalo DPM Unavailable [phone] Will Alvarez MD Primary Care Provider [phone] Encounter Details Date Type Department Care Team (Late st Contact Info) Description 10/30/2023 Abstract [facility] [address] [facility] [place] [address] Slava Magana, DO [address] [id number] Social History Tobacco Use Types Packs/Day Years [...] 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 Not on file Not on file documented as of this encounter Plan of Treatment Upcoming Encounters Date Type Department Care Team (Late st Contact Info) Description 05/19/2025 3:00 PM EDT Procedure Visit [facility] [address] [place] [address] Osei Arevalo DPM [address] [place], [place] [address] documented as of this encounter Visit Diagnoses Not on filedocumented in this encounter Care Teams Tar Heater Operator Relationship Specialty Start Date End Date Will Alvarez MD [address] [place] [address] PCP - ACO Reach 02/08/23 Will Alvarez MD [address] [place] [address] PCP - General Family Medicine 02/10/25 Slava Magana DO [address] [place] [address] Referring Physician Orthopaedic Surgery 10/25/23 Jeet Aguirre MD [address] [facility] 1 [place] [address] Referring Physician Rheumatology 10/25/23 Osei Arevalo DPM [address] [place], [place] [address] Referring Physician Podiatry 10/25/23 documented as of this encounter
--- OUTSIDE RECORDS SUMMARY | 2025-03-19 13:34 | XMS_ITS | Clinical Summary ---
Author Organization [facility] Address [address] [place] [address] Care Team Providers Care Fur Grader Name Role Phone Will Tim MD Unavailable Jeet Aguirre MD Unavailable [phone] Osei Arevalo DPM Unavailable [phone] Will Tim MD Primary Care Provider Allergies Active Allergy [...] and 750 mg before bedtime. 5 Active gabapentin (Neurontin) 100 MG capsule Take 100 mg by mouth 3 (three) times a day 5 Active DULoxetine (Cymbalta) [address] capsuleIndications :Recurrent major depressive disorder, in partial remission Take 1 capsule (60 mg) by mouth Daily 30 capsule 5 04/17/20 25 Active calcium citrate 250 MG tabletIndications: Osteopenia 1 tablet 2-3 times daily as directed. 5 Active cholecalciferol (Vitamin D-3) 125 MCG (5000 UT) tabletIndications: Vitamin D Deficiency OTC vitamin D3 5000 units, Winter dose, take 1 capsule daily. 5 Active Menaquinone-7 (Vitamin K2) 100 MCG capsuleIndications :Osteopenia, unspecified location Take 1 capsule by mouth Daily 5 Active DULoxetine (Cymbalta) [address] capsuleIndications :Recurrent major depressive disorder, in partial remission Take 1 capsule (60 mg) by mouth Daily 90 capsule 1 4 02/19/20 25 Discontin ued(Reord er) DULoxetine (Cymbalta) [address] capsuleIndications :Recurrent major depressive disorder, in partial remission Take 1 capsule (60 mg) by mouth Daily 30 capsule 5 03/18/20 25 Discontin ued(Reord er) Active Problems Problem [...] Encounters Date Type Department Care Team Description 03/18/2025 2:00 PM EDT Office Visit [facility] [address] [place] [address] Will Tim MD Recurrent major depressive disorder, in partial remission (Primary Dx); Osteopenia, unspecified location; Impaired glucose tolerance test 03/18/2025 Bamboo flowsheet [facility] [address] [place] [address] Will Tim MD 03/18/2025 Travel 03/16/2025 Abstract [facility] [address] [place] [address] Will Tim MD 03/03/2025 Telephone [facility] [address] [place] [address] Jessie Rosen RN Results 02/27/2025 Clinisync Result Encounter [facility] External Department Unsolicited Provider, Generic External Data 02/27/2025 Clinisync Result Encounter [facility] External Department Unsolicited Will Tim MD 02/18/2025 Orders Only [facility] [address] [place] [address] [place], [place] 02/18/2025 Orders Only [facility] [address] [place] [address] [place], [place] Recurrent major depressive disorder, in partial remission 02/15/2025 Orders Only [facility] [address] [facility] [address] [place] [address] Will Tim MD 02/11/2025 2:30 PM EDT Procedure Visit [facility] [address] [place] [address] Osei Arevalo DPM Onychomycosis (Primary Dx); Onychodystrophy; Diabetic polyneuropathy associated with type 2 diabetes mellitus (HCC) 02/11/2025 Bamboo flowsheet [facility] [address] [place] [address] Osei Arevalo DPM 02/11/2025 Travel 02/10/2025 Travel 02/02/2025 9:00 AM EDT Office Visit [facility] [address] [facility] [address] [place] [address] Will Tim MD Encounter for Medicare annual wellness exam [...] [address] [place] [address] Will Tim MD 02/02/2025 Travel 01/20/2025 Telephone [facility] [address] [place] [address] Lynn Aguiar MA Referral 01/07/2025 Telephone [facility] [address] [place] [address] Will Tim MD 01/07/2025 Orders Only [facility] [address] [place] [address] Will Tim MD 01/06/2025 Telephone [facility] [address] [place] [address] Will Tim MD 01/05/2025 10:30 AM EDT Treatment [facility] [address] [place] [address] Michela Campos, PT Chronic pain syndrome (Primary Dx); Right leg weakness; Neuropathy; Right foot pain 01/05/2025 Bamboo flowsheet [facility] [address] [place] [address] Michela Campos, PT 01/05/2025 Travel 01/01/2025 2:00 PM EDT Treatment [facility] [address] [place] [address] Jaimee Velazquez, LABOR SPECIALIST Chronic pain syndrome (Primary Dx); Right leg weakness 01/01/2025 Bamboo flowsheet [facility] [address] [place] [address] Kelbley, Jaimee, LABOR SPECIALIST 01/01/2025 Travel 12/30/2024 2:00 PM EDT Treatment [facility] [address] [place] [address] Kelbley, Jaimee, LABOR SPECIALIST Chronic pain syndrome (Primary Dx); Right leg weakness 12/30/2024 Bamboo flowsheet [facility] [address] [place] [address] Kelbley, Jaimee, LABOR SPECIALIST 12/30/2024 Travel 12/25/2024 2:00 PM EDT Treatment [facility] [address] [place] [address] Kelbley, Jaimee, LABOR SPECIALIST Chronic pain syndrome (Primary Dx); Right leg weakness 12/25/2024 Bamboo flowsheet [facility] [address] [facility] [address] [place] [address] Kelbley, Jaimee, LABOR SPECIALIST 12/25/2024 Travel 12/22/2024 7:00 AM EDT Treatment [facility] [address] [place] [address] Kelbley, Jaimee, LABOR SPECIALIST Chronic pain syndrome (Primary Dx); Right leg weakness 12/22/2024 Bamboo flowsheet [facility] [address] [facility] [address] [place] [address] Kelbley, Jaimee, LABOR SPECIALIST 12/22/2024 Travel 12/19/2024 10:00 AM EDT Treatment [facility] [address] [place] [address] Kelbley, Jaimee, LABOR SPECIALIST Chronic pain syndrome (Primary Dx); Right leg weakness 12/19/2024 Bamboo flowsheet [facility] [address] [place] [address] Kelbley, Jaimee, LABOR SPECIALIST 12/19/2024 Travel from Last 3 Months Immunizations Immunization [...] 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 Not on file Last Filed Vital Signs Vital Sign Reading Time Taken Comments Blood Pressure 126/72 02/02/2025 9:17 AM EDT Pulse 101 03/18/2025 2:03 PM EDT Temperature - - Respiratory Rate - - Oxygen Saturation 96% 03/18/2025 2:03 PM EDT Inhaled Oxygen Concentration - - Weight 81.9 kg (180 lb 8 oz) 03/18/2025 2:03 PM EDT Height 160 cm (5' 3 ) 03/18/2025 2:03 PM EDT Body Mass Index 31.97 03/18/2025 2:03 PM EDT Plan of Treatment Upcoming Encounters Date Type Department Care Team (Late st Contact Info) Description 05/19/2025 3:00 PM EDT Procedure Visit [facility] [address] [place] [phone] Osei Arevalo, DPM [address] [place] [address] Health Maintenance Due Date Last Done Comments CT Colonography 1950 FIT 1950 FOBT 1950 Sigmoidoscopy 1950 Diabetes: Hemoglobin A1C 05/16/2025 025, 05/30/2024, 05/02/2023, Additional history exists Influenza Vaccine (#1) 2025 4, 06/13/2023, 06/13/2023, Additional history exists Medicare Annual Wellness (AWV) 02/02/2026 0 02/02/2025, 02/05/2024, 08/21/2022 Diabetes: Urine Protein Screening 02/13/2026 02/13/2025, 11/29/2021, 06/14/2018 Mammogram 02/27/2026 02/27/2025, 11/0 01/2021, 02/23/2020, Additional history exists Diabetes: Retinopathy Screening 07/18/2026 4, 09/13/2022 FIT-DNA 02/23/2027 02/24/2024 Colonoscopy 07/02/2034 07/02/2024 Colorectal Cancer Screening 07/02/2034 Pneumococcal Vaccine: 65+ Years Completed 08/20/2024, 12/29/2018, 01/14/2017, Additional history exists Procedures Procedure Name Priority Date/Time Associated Diagnosis Comments DEXA BONE DENSITY Routine 03/17/2025 10: 48 AM EDT Screening for osteoporosis Menopause MR LUMBAR SPINE WO CON 3:36 PM EDT MM TOMOSYNTHESIS SCREENING BI 02/27/2025 2:37 PM EDT MICROALBUMIN / CREATININE URINE RATIO Routine 02/13/2025 [...] 02/24/2024 9:00 AM EDT Colon cancer screening from Last 3 Months or Most Recently Relevant to Health Maintenance Results * DEXA bone density (03/17/2025 10:48 AM EDT) Will Tim MD IM DXA PROCEDURES Final Res ult * MR LUMBAR SPINE WO CON (02/27/2025 3:36 PM EDT) Anatomical Region Laterality Modality Other 02/27/2025 3:36 PM EDT Narrative 02/27/2025 3:39 PM EDT The [address] [address] Magnetic Resonance Report Signed Patient: NEHA DE LA GARZA MR#: [id number] : 1950 Acct:[id number] Age/Sex: 74 / F ADM Date: 02/27/25 Loc: MRI Attending Dr: Quin Hernandez NP Ordering Physician: Quin Hernandez NP Date of Service: 02/27/25 Procedure(s): MR lumbar spine wo con Accession Number(s): [id number] cc: Quin Hernandez NP; WILL TIM [place] [id number] Patient Name: NEHA DE LA GARZA MRN: [facility]:[id number] date: 1950 Sex: F Assigned Patient Location: MRI Current Patient Location: MRI Accession/Order Number: [id number] Exam Date: 02/27/2025 15:30 Report Date: 02/27/2025 15:36 At the request of: QUIN HERNANDEZ NP Procedure: MR lumbar spine wo con MRI Lumbar Spine withoutcontrast TECHNIQUE: Multiplanar T1 and T2-weighted imaging of lumbar spine obtained without contrast. HISTORY: Lumbar pain radiating into the legs. Leg weakness. COMPARISON: None POST SURGERY CHANGES: None BONE MARROW INFILTRATION: None BONE MARROW EDEMA: None BONY ALIGNMENT: Adequate bony alignment identified. LUMBAR FRACTURE: None BONY LESIONS: None KIDNEYS: No hydronephrosis is identified. AORTA: No aortic aneurysm is seen. CONUS MEDULLARIS : The distal spinal cord is in adequate position without abnormality. Additional findings CONJOINED NERVE ROOT: None Lower thoracic level: Unremarkable L1-2 :Disc space narrowing with endplate changes. Diffuse disc bulge and endplate spurring. Mild central canal stenosis. Posterior element hypertrophy. Mild bilateral neural foraminal narrowing L2-3: Marked disc space narrowing with degenerative endplate change. Diffuse disc bulge with endplate spurring. Moderate to severe central canal stenosis. Moderate bilateral neural foraminal narrowing L3-4: Moderate disc space narrowing. Diffuse disc bulge and endplate spurring. Severe central canal stenosis. Posterior element hypertrophy. Marked bilateral neural foraminal narrowing L4-5: Moderate disc space narrowing. Diffuse disc bulge. Marked central canal stenosis. Posterior element hypertrophy. Marked bilateral neural foraminal narrowing L5-S1: Mild disc space narrowing. Mild anterolisthesis. Moderate central canal stenosis. Diffuse disc bulge. Posterior element hypertrophy. Moderate bilateral neural foraminal narrowing MR/MR lumbar spine wo con IMPRESSION: Extensive multilevel discovertebral degenerative changes. Levels of extensive central canal stenosis as above greatest at L3-4 neural foraminal.. Pre-MRI plain film assessment: None Impression dictated by: Guido Salcedo M.D. 02/27/2025 3:36 PM Dictation Location: [place] [address] Electronically authenticated by: [id number] Y Date: 02/27/2025 15:36 Dictated By: Guido Salcedo D.O. Signed By: 02/27/25 1539 DD/ 1536 TD/TT: Route Sales Trainee: Procedure Note Radiology, Radiologist, MD - 02/27/2025 [place] [address] Magnetic Resonance Report Signed Patient: NEHA DE LA GARZA GMR#: [id number] : 1950cct:[id number] Age/Sex: 74 / FADM Date: 02/27/25 Loc: MRI Attending Dr: Quin Hernandez NP Ordering Physician: Quin Hernandez NP Date of Service: 02/27/25 Procedure(s): MR lumbar spine wo con Accession Number(s): [id number] cc: Quin Hernandez NP; WILL TIM [place] [id number] Patient Name: NEHA DE LA GARZA MRN: [facility]:[id number] date: 1950 Sex: F Assigned Patient Location: MRI Current Patient Location: MRI Accession/Order Number: [id number] Exam Date: 02/27/2025 15:30 Report Date: 02/27/2025 15:36 At the request of: QUIN HERNANDEZ NP Procedure: MR lumbar spine wo con MRI Lumbar Spine withoutcontrast TECHNIQUE: Multiplanar T1 and T2-weighted imaging of lumbar spine obtained without contrast. HISTORY: Lumbar pain radiating into the legs. Leg weakness. COMPARISON: None POST SURGERY CHANGES: None BONE MARROW INFILTRATION: None BONE MARROW EDEMA: None BONY ALIGNMENT: Adequate bony alignment identified. LUMBAR FRACTURE: None BONY LESIONS: None KIDNEYS: No hydronephrosis is identified. AORTA: No aortic aneurysm is seen. CONUS MEDULLARIS : The distal spinal cord is in adequate position without abnormality. Additional findings CONJOINED NERVE ROOT: None Lower thoracic level: Unremarkable L1-2 :Disc space narrowing with endplate changes. Diffuse disc bulge and endplate spurring. Mild central canal stenosis. Posterior element hypertrophy. Mild bilateral neural foraminal narrowing L2-3: Marked disc space narrowing with degenerative endplate change.Diffuse disc bulge with endplate spurring. Moderate to severe central canalstenosis. Moderate bilateral neural foraminal narrowing L3-4: Moderate disc space narrowing. Diffuse disc bulge and endplate spurring. Severe central canal stenosis. Posterior element hypertrophy. Marked bilateral neural foraminal narrowing L4-5: Moderate disc space narrowing. Diffuse disc bulge. Marked central canal stenosis. Posterior element hypertrophy. Marked bilateral neural foraminalnarrowing L5-S1: Mild disc space narrowing. Mild anterolisthesis. Moderatecentral canal stenosis. Diffuse disc bulge. Posterior element hypertrophy.Moderate bilateral neural foraminal narrowing MR/MR lumbar spine wo con IMPRESSION: Extensive multilevel discovertebral degenerative changes.Levels of extensive central canal stenosis as above greatest at L3-4 neural foraminal.. Pre-MRI plain film assessment: None Impression dictated by: Guido Salcedo M.D. 02/27/2025 3:36 PM Dictation Location: [place] [address] Electronically authenticated by: [id number] Y Date: :36 Dictated By: Guido Salcedo D.O. Signed By:02/27/25 1539 DD/ 1536 TD/TT: Route Sales Trainee: Generic External Data Provider [facility] Final Result * MM TOMOSYNTHESIS SCREENING BI (02/27/2025 2:37 PM EDT) Anatomical Region Laterality Modality Other 02/27/2025 2:37 PM EDT Narrative 02/27/2025 2:38 PM EDT [address] [address] Mammography Report Signed Patient: NEHA DE LA GARZA MR#: [id number] : 1950 Acct:[id number] Age/Sex: 74 / F ADM Date: 02/27/25 Loc: MAMMO Attending Dr: WILL TIM Ordering Physician: WILL TIM Results: Date of Service: 02/27/25 Follow Up: Procedure(s): MM tomosynthesis screening BI Accession Number(s): [id number] cc: WILL TIM Patient Name: NEHA DE LA GARZA MR#: [id number] : 1950 Exam Date: 02/27/2025 Ordering Doctor: DR WILL TIM . RADIOLOGY REPORT PROCEDURE: MM TOMOSYNTHESIS SCREENING BI COMPARISON: MG MAMM SCREEN 3D ANA CAD, 07/22/2021. MG MAMM SCREEN ANA W CAD, 02/23/2020. MG MAMM SCREEN ANA W CAD, 01/25/2018. INDICATIONS: Screening Calculator Name NCI Breast Cancer Risk Assessment Tool 5 Year Breast Cancer Risk 1.40% Lifetime Breast Cancer Risk 3.60% Personal Breast Cancer No Personal Ovarian Cancer No Treatments None Family Cancers Father with throat cancer at age 75. LOCATION: [facility] BREAST COMPOSITION: The breasts are almost entirely fatty. FINDINGS: RIGHT BREAST: No significant suspicious finding. LEFT BREAST: No significant suspicious finding. DIAGNOSTIC CATEGORY 1--NEGATIVE. RECOMMENDATIONS: ROUTINE MAMMOGRAM AND CLINICAL EVALUATION IN 12 MONTHS. PLEASE NOTE: A NORMAL MAMMOGRAM DOES NOT EXCLUDE THE POSSIBILITY OF BREAST CANCER. A CLINICALLY SUSPICIOUS PALPABLE LUMP SHOULD BE BIOPSIED. Dictated by: Guido Salcedo DO on 02/27/2025 at 14:29 Approved by: Guido Salcedo DO on 02/27/2025 at 14:37 Dictated By: Guido Salcedo D.O. Signed By: 02/27/25 1438 DD/ 1437 TD/TT: Route Sales Trainee: Procedure Note Radiology, Radiologist, MD - 02/27/2025 [place] [address] Mammography Report Signed Patient: NEHA DE LA GARZA GMR#: [id number] : 1950cct:[id number] Age/Sex: 74 / FADM Date: 02/27/25 Loc: MAMMO Attending Dr: WILL TIM Ordering Physician: WILL TIMResults: Date of Service: 02/27/25Follow Up: Procedure(s): MM tomosynthesis screening BI Accession Number(s): [id number] cc: WILL TIM Patient Name: NEHA DE LA GARZA MR#: [id number] : 1950 Exam Date: 02/27/2025 Ordering Doctor: DR WILL TIM . RADIOLOGY REPORT PROCEDURE: MM TOMOSYNTHESIS SCREENING BI COMPARISON: MG MAMM SCREEN 3D ANA CAD, 07/22/2021. MG MAMM SCREEN BILW CAD, 02/23/2020. MG MAMM SCREEN ANA W CAD, 01/25/2018. INDICATIONS: Screening Calculator Name NCI Breast Cancer Risk Assessment Tool 5 Year Breast Cancer Risk 1.40% Lifetime Breast Cancer Risk 3.60% Personal Breast Cancer No Personal Ovarian Cancer No Treatments None Family Cancers Father with throat cancer at age 75. LOCATION: [facility] BREAST COMPOSITION: The breasts are almost entirely fatty. FINDINGS: RIGHT BREAST: No significant suspicious finding. LEFT BREAST: No significant suspicious finding. DIAGNOSTIC CATEGORY 1--NEGATIVE. RECOMMENDATIONS: ROUTINE MAMMOGRAM AND CLINICAL EVALUATION IN 12 MONTHS. PLEASE NOTE: A NORMAL MAMMOGRAM DOES NOT EXCLUDE THE POSSIBILITY OFBREAST CANCER. A CLINICALLY SUSPICIOUS PALPABLE LUMP SHOULD BE BIOPSIED. Dictated by: Guido Salcedo DO on 02/27/2025 at 14:29 Approved by: Guido Salcedo DO on 02/27/2025 at 14:37 Dictated By: Guido Salcedo D.O. Signed By:02/27/25 1438 DD/ 1437 TD/TT: Route Sales Trainee: Will Tim MD [facility] Final Resu lt * (ABNORMAL) Microalbumin / creatinine urine ratio [...] Performing Organization Information Site ID: QPT Name: [facility] Address: [address] [place] [address], [address] [place] [phone] Director: Edgardo Lake MD Will Tim MD LAB URINE ORDERABLES Final R esult Performing Organization Address [facility] de Phone Number [facility] * Hemoglobin A1c [...] diagnosis of diabetes in children. According to [place] Diabetes Association (ADA) guidelines, hemoglobin A1c <7.0% represents optimal control in non- diabetic patients. Different metrics may apply to specific patient populations. Standards of Medical Care in Diabetes(ADA). Blood Venous blood specimen / Unknown 02/13/2025 8:31 AM EDT 02/13/2025 3:49 PM EDT Narrative Resulting Agency Comment Performing Organization Information Site ID: QPT Name: [facility] Address: [address] [place] [address], [address] [place] [phone] Director: Edgardo Lake MD Will Tim MD LAB BLOOD ORDERABLES Final R esult Performing Organization Address [facility] Co de Phone Number [facility] * Diabetic Retinopathy Screening - OU - Both Eyes (07/18/2024 10:02 AM EDT) Anatomical Region Laterality Modality Head Other Angie Early OD OPHTH PHOTOGRAPHY Final Result * Colonoscopy (07/02/2024 11:03 AM EDT) Anatomical Region Laterality Modality Endoscopy Will Tim MD ENDOSCOPY PROCEDURE ORDERABL ES Final Result * (ABNORMAL) Cologuard® colon cancer screening (02/24/2024 9:00 AM EDT) NONINV COLON CA DNA+OCC BLD SCRN STL-IMP Positive( A) Negative 03/03/2024 5:41 PM EDT [employer] (CLIA #:[id number]) Comment: POSITIVE TEST RESULT. A positive Cologuard [...] screened with both Cologuard and colonoscopy. (Henry Celis. et al, N Engl J Med 2014;370(14):4390-5934.) Cologuard may produce a false negative or false positive result (no colorectal cancer or precancerous polyp present at colonoscopy follow up). A negative Cologuard test result does not guarantee the absence of CRC or advanced adenoma (pre-cancer). The current Cologuard screening interval is every 3 years. ([place] Cancer Society and U.S. Multi-Society Task Force). Cologuard performance data in a 10,000 patient pivotal study using colonoscopy as the reference method can be accessed at the following location: [email or web address]/results. Additional description of the Cologuard test process, warnings and precautions can be found at www.cologuard.com. Stool specimen (specimen) Rectal contents / Unknown 02/24/2024 9:00 AM EDT 02/26/2024 11:26 AM EDT Will Tim MD LAB MOLECULAR DIAGNOSTICS OR DERABLES Final Result .[employer] (CLIA #:[id number]) [address] [id number], [employer] (CLIA #:[id number]) [address] [id number] from Last 3 Months or Most Recently Relevant to Health Maintenance Insurance [facility]ICARE [facility] [email or web address] [facility] Advance Directives Documents on File Type Date Recorded Patient Continuous Towel Roller Expl anation Advance Directives and Living Will 11/29/2021 2019-04-01 Living Wi ll Advance Directives and Living Will 11/29/2021 2016-04-04 Power Of Toll Relief Operator Care Teams Fur Grader Relationship Specialty Start Date End Date Will Tim MD [address] [place] [address] PCP - ACO Reach 02/08/23 Will Tmi MD [address] [place] [address] PCP - General Family Medicine 02/10/25 Jeet Aguirre MD [address] [facility] Professional [address] [place] [address] Referring Physician Rheumatology 10/25/23 Osei Arevalo DPM [address] [place] [address] Referring Physician Podiatry 10/25/23
--- OUTSIDE RECORDS SUMMARY | 2025-03-19 13:34 | XMS_ITS | Encounter Summary ---
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 Not on file documented as of this encounter Plan of Treatment Upcoming Encounters Date Type Department Care Team (Late st Contact Info) Description 05/19/2025 3:00 PM EDT Procedure [facility] [address] [facility] [place] [address] Osei Arevalo DPM [address] [place], [place] [phone] documented as of this encounter Visit Diagnoses Not on filedocumented in this encounter Care Teams Drupal Php Developer Relationship Specialty Start Date End Date Will Alvarez MD [address] [place] [address] PCP - ACO Reach 02/08/23 Will Alvarez MD [address] [place] [address] PCP - General Family Medicine 02/10/25 Slava Magana DO [address] [place] [address] Referring Physician Orthopaedic Surgery 10/25/23 Jeet Aguirre MD [address] [facility] Professional [address] [place] [address] Referring Physician Rheumatology 10/25/23 Osei Arevalo DPM [address] [place], [place] [id number] Referring Physician Podiatry 10/25/23 documented as of this encounter
--- OUTSIDE RECORDS SUMMARY | 2025-03-19 13:34 | XMS_ITS | Encounter Summary ---
Author Organization [facility] Address [address] [place] [address] Care Team Providers Care Truck Technician Name Role Phone Will Alvarez MD Unavailable [phone] Slava Magana DO Unavailable [phone] Jeet Aguirre MD Unavailable [phone] Osei Arevalo DPM Unavailable [phone] Will Alvarez MD Primary Care Provider + [phone] Encounter Details Date Type Department Care Team (Late st Contact Info) Description 05/11/2023 Orders Only [facility] [address] [place] [address] Will Alvarez MD [address] [address] Social History Tobacco Use Types [...] EDT Procedure Visit [facility] [address] [place] [address] Osei Arevalo, DPM [address] [place], [place] [address] documented as of this encounter Procedures Procedure [...] on filedocumented in this encounter Care Teams Truck Technician Relationship Specialty Start Date End Date Will Alvarez MD [address] [place] [address] PCP - ACO Reach 02/08/23 Will Alvarez MD [address] [place] [address] PCP - General Family Medicine 02/10/25 Slava Magana DO [address] [place] [address] Referring Physician Orthopaedic Surgery 10/25/23 Jeet Aguirre MD [address] [facility] Professional building 1 [place] [address] Referring Physician Rheumatology 10/25/23 Osei Arevalo DPM [address] [place] [address] Referring Physician Podiatry 10/25/23 documented as of this encounter
== END 2025-03-19 13:32 | disposition home or self-care (01) ==
LOC: PM 13:32
PROVIDERS: PCP Family Medicine; Visit Provider Nurse Practitioner
DX: M48.062 Spinal stenosis, lumbar region with neurogenic claudication (principal)
CPT/HCPCS: G0463

== ENCOUNTER 2025-03-30 11:24 | Day surgery (SDC) | payer MEDICARE, OTHER, SELFPAY ==
--- OUTSIDE RECORDS SUMMARY | 2025-03-18 14:00 | XMS_ITS | Encounter Summary ---
Author Organization [facility] Address [address] [place] [address] Care Team Providers Care Ship Washer Name Role Phone Will Alvarez MD Unavailable [phone] Jeet Aguirre MD Unavailable [phone] Osei Arevalo DPM Unavailable [phone] Will Alvarez MD Primary Care Provider [phone] Encounter Details Date Type Department Care Team (Late st Contact Info) Description 03/18/2025 2:00 PM EDT Office Visit [facility] [address] [facility] [facility] [address] [place] [address] Will Alvarez MD 112 [facility] 100 [place], [place] [id number] (Fax) Recurrent major depressive disorder, in partial remission (Primary Dx); Osteopenia, unspecified location; Impaired glucose tolerance test Social History Tobacco Use Types Packs/Day Years Used Date Smoking Tobacco: Every Day Cigarettes Tobacco Cessation:Ready to Q uit: No; Counseling Given: Yes Comments:6-10 cigs/day Alcohol Use Standard Drinks/Week Comments [...] 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 Patient ID: Sonia Blanc is a 74 y.o. female who presents for: Anxiety Patient is here for evaluation of anxiety. He/She has the following anxiety symptoms: none. Onset of symptoms was approximately several years ago. Symptoms have been stable since that time. He/She denies current suicidal and homicidal ideation. Family history significant for no psychiatric illness.Possible organic causes contributing are: none. Previous treatment includes medication cymbalta. He/She complains of the following medication side effects: none. Insulin Resistance: Pt is on Metformin for her/his glucose intolerance and/or insulin resistance and has been for many years. She/He denies any side effects and will be in need of a refill today. Review Results: Patient is here in the office today to review recent labs or diagnostic imaging with Dr Raul Alvarez per his request. Based on the results they will also review treatment options. Please see labs scanned. Review of Systems Constitutional: Negative for chills and fever. Respiratory: Negative for cough, shortness of breath and wheezing. Cardiovascular: Negative for chest pain and palpitations. Gastrointestinal: Negative for abdominal pain. Genitourinary: Negative for frequency and urgency. Objective Appearance: Well-groomed, in no acute distress Abnormal body movements: None Affect: Appropriate and appears to be full range Attention: Good Attitude: Cooperative Degree of awareness of surroundings: Grossly within normal limits Impulse control: Appears to be good Insight: Appears to be good Fund of knowledge; adequate Judgment: Appears to be adequate Perceptual disorders: No perceptual disorders noted Psychomotor activity: Within normal range Speech: Clear, normal variability and rate Thought content: Unremarkable 07/03/2024 8:28 AM 08/05/2024 1:57 PM 10/27/2024 1:57 PM 11/05/2024 2:18 PM 11/24/2024 8:58 AM 02/02/2025 9:17 AM 02/11/2025 2:27 PM Vitals BMI 30.82 kg/m2 30.82 kg/m2 30.82 kg/m2 30.82 kg/m2 30.82 kg/m2 31.53 kg/m2 31.53 kg/m2 BSA (m2) 1.87 m2 1.87 m2 1.87 m2 1.87 m2 1.87 m2 1.89 m2 1.89 m2 Systolic 126 126 126 Diastolic 72 78 72 Heart Rate 109 89 92 SpO2 97 % 92 % 99 % Height (in) 5' 3 5' 3 5' 3 5' 3 5' 3 5' 3 5' 3 Weight (lb) 174 174 174 174 174 178 178 Visit Report Report Report Report Report Allergies Allergen Reactions Hydroxychloroquine Hives and Unknown Clindamycin Rash Swelling/rash Levofloxacin Rash Current Outpatient Medications on File Prior to Visit Medication Sig Dispense Refill acetaminophen (Tylenol 8 Hour) 650 MG ER tablet Take 650 mg by mouth every 8 (eight) hours if needed for mild pain Do not crush, chew, or split. aspirin 81 MG EC tablet Take 81 mg by mouth Daily atorvastatin (Lipitor) 10 MG tablet Take 1 tablet (10 mg) by mouth at bedtime 90 tablet 3 DULoxetine (Cymbalta) [address] capsule Take 1 capsule (60 mg) by mouth Daily 30 capsule 0 folic acid (Folvite) 1 MG tablet 1 mg gabapentin (Neurontin) 100 MG capsule Take 100 mg by mouth 3 (three) times a day metFORMIN (Glucophage) 1000 MG tablet Take 1 tablet (1,000 mg) by mouth in the morning and 1 tablet(1,000 mg) in the evening. Take with meals. 180 tablet 1 methotrexate 2.5 MG tablet nabumetone (Relafen) 750 MG tablet Take 750 mg by mouth in the morning and 750 mg before bedtime. omeprazole (PriLOSEC) [address] capsule Take 20 mg by mouth in the morning. Take before meals. No current facility-administered medications on file prior to visit. 1. Recurrent major depressive disorder, in partial remission (Primary) The patient is going to get a 30 day prescription as she only has 2 left. Once she actually has physical prescription in hand she will contact us and I will send a 90 day supply. Doing this so that they do not accidentally get cancel out. - DULoxetine (Cymbalta) [address] capsule; Take 1 capsule (60 mg) by mouth Daily Dispense: 30 capsule; Refill: 0 2. Osteopenia, unspecified location I have reviewed with them the DEXA scan and any relevant lab tests. I have educated them on the meaning of both osteopenia and osteoporosis. I have reviewed their diagnosis with them. We discussed the morbidity and mortality associated with this diagnosis. We have discussed treatment options including traditional medications as well as alternative supplementation. She has decided that she would prefer to attempt a supplementation route. We have also discussed normal versus optimal vitamin D levels. We have discussed that we will need to establish both winter and summer levels in [place]. We have discussed the proper type of calcium to utilize as well as the frequency. We have discussed that a multivitamin may help with this. We have reviewed fall risk with her. Risks, benefits, and reason for starting new medication was discussed. The main side effects and potential drug interactions were reviewed. Written educational information on the drug will also be provided by the pharmacist. Questions and concerns were addressed today, but the patient is to call ifany other questions arise or if any problems occur with the new medication. We have discussed that any supplements recommended have not undergone review or approval by the FDAand, therefore, have not been documented to be safe or effective to diagnose, treat, prevent, mitigate, or cure any condition or disease. This is a complicated visit with complex decision making for: educating patient, discussing diseaseprocesses, counseling on prevention, and treatment as appropriate. Multiple questions were answered. - calcium citrate 250 MG tablet; 1 tablet 2-3 times daily as directed. - cholecalciferol (Vitamin D-3) 125 MCG (5000 UT) tablet; OTC vitamin D3 5000 units, Winter dose, take 1 capsule daily. - Menaquinone-7 (Vitamin K2) 100 MCG capsule; Take 1 capsule by mouth Daily 3. Impaired glucose tolerance test The patient is also on metformin. I will hold until she gets back to us and send this along with her duloxetine. documented in this encounter Plan of Treatment Upcoming Encounters Date Type Department Care Team (Late st Contact Info) Description 05/19/2025 3:00 PM EDT Procedure Visit [facility] [address] [place] [phone] Osei Arevalo DPM [address] [place], [place] [id number] documented as of this encounter Visit Diagnoses Diagnosis Recurrent major depressive disorder, in partial remission- Primary Osteopenia, unspecified location Impaired glucose tolerance test documented in this encounter Additional Health Concerns Assessment Noted Time PHQ-9 Depression Total Score: 5 02/03/20 25 9:00 AM EDT documented as of this encounter Care Teams Ship Washer Relationship Specialty Start Date End Date Will Alvarez MD [address] [place] [address] PCP - ACO Reach 02/08/23 Will Alvarez MD [address] [place] [address] PCP - General Family Medicine 02/10/25 Jeet Aguirre MD [address] [facility] Professional building [address] [place] [address] Referring Physician Rheumatology 10/25/23 Osei Arevalo DPM [address] [place], [place] [phone] Referring Physician Podiatry 10/25/23 documented as of this encounter
--- OUTSIDE RECORDS SUMMARY | 2025-03-30 11:27 | XMS_ITS | Encounter Summary ---
Author Organization [facility] Address [address] [place] [address] Care Team Providers Care Chemical Radiation Technician Name Role Phone Will Alvarez MD Unavailable Jeet Aguirre MD Unavailable [phone] Osei Arevalo DPM Unavailable [phone] Will Alvarez MD Primary Care Provider [phone] Reason for Visit * Reason Onset Date Comments Care Coordination 03/23/2025 Encounter Details Date Type Department Care Team (Late st Contact Info) Description 03/23/2025 Telephone [facility] [address] [place] [address] Will Alvarez MD 112 [facility] [address] [place], [place] [id number] Care Coordination Social History Tobacco Use Types Packs/Day Years [...] 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 She stated it was ok to go ahead and send them to [facility], her mail order. documented in this encounter Plan of Treatment Upcoming Encounters Date Type Department Care Team (Late st Contact Info) Description 05/19/2025 3:00 PM EDT Procedure Visit [facility] [address] [place] [address] Osei Arevalo DPM [address] [place], [place] [address] documented as of this encounter Visit Diagnoses Diagnosis Impaired glucose tolerance test Recurrent major depressive disorder, in partial remission documented in this encounter Additional Health Concerns Assessment Noted Time PHQ-9 Depression Total Score: 5 02/03/20 25 9:00 AM EDT documented as of this encounter Care Teams Chemical Radiation Technician Relationship Specialty Start Date End Date Will Alvarez MD [address] [place] [address] PCP - ACO Reach 02/08/23 Will Alvarez MD 112 [facility] [address] [place] [address] PCP - General Family Medicine 02/10/25 Jeet Aguirre MD [address] [facility] [address] [place] [address] Referring Physician Rheumatology 10/25/23 Osei Arevalo DPM 1900 [facility] [place] [address] Referring Physician Podiatry 10/25/23 documented as of this encounter
--- OUTSIDE RECORDS SUMMARY | 2025-03-30 11:27 | XMS_ITS | Clinical Summary ---
Author Organization [facility] Address [id number] [address] [place] [address] Care Team Providers Care Supervisor Sewing Room Name Role Phone Will Alvarez MD Primary Care Provider + [phone] Allergies Active Allergy Reactions Criticality Noted Date Comments Levofloxacin Rash Low 05/02/2023 Hydroxychloroquine Rash Low 10/20/2020 Medications methotrexate 2.5 mg chemo tabletIndications :rheumatoid arthritis Take 1 tablet by mouth once a week 8 tabs every Sunday Indications: rheumatoid arthritis Active vemqyihv-nvsz-XS- calcium &mins (THERAGRAN-M) 9 mg iron-400 mcg [...] nightly Indications: wide-angle glaucoma. Active aspirin 81 mgIndications:smara cardial infarction prevention Take 1 tablet (81 [...] Recorded Do you need help finding a [employer] career center and/or a training program? No [...] Left TSR Medical Devices Implanted Type Area Injection Molding Technician Device Identifier Shelf Expiration Date Model / Serial / Lot Bearing Hum 36mm Cmprh Std Shldr Prlng Rvrs - [id number] Implanted:Qty : 1 on 05/16/2023 by Joshua Rincon MD at [facility] Bearing Left: Shoulder [employer] [id number] 11/26/2027 [id number] / / [id number] Cmnt Bn Bio 40gm Rpl [id number] - Sna - [id number] Implanted:Qty : 2 on 11/10/2020 by Slava Magana DO at [facility] Cement Right: Knee [employer] 09/16/2024 [id number] / NA / [id number] Cmpt Fem 5 Kn Rt Crcte Rtn - Sna - [id number] Implanted:Qty : 1 on 11/10/2020 by Slava Magana DO at [facility] Orthopedic Implant Right: Knee [employer] 12/15/2028 [id number] / NA / [id number] Cmpt Ptlr 35mm Medialized Dome - Sna - [id number] Implanted:Qty : 1 on 11/10/2020 by Slava Magana DO at [facility] Orthopedic Implant Right: Knee [employer] 06/16/2025 [id number] / NA / [id number] Ins Tib 5 5mm Cr Fx Brng - Sna - [id number] Implanted:Qty : 1 on 11/10/2020 by Slava Magana DO at [facility] Orthopedic Implant Right: Knee ORTHOPAEDICS 07/17/2025 [id number] / NA / [id number] Impl Kn Fx Brng W Spcl Ins Construct Rpl [id number] - Sna - [id number] Implanted:Qty : 1 on 11/10/2020 by Slava Magana DO at [facility] Orthopedic Implant Right: Knee ORTHOPAEDICS [id number] / NA / NA Baseplate Krishna Cmprh Sm Shldr Aug Tpr Adpr - [id number] Implanted:Qty : 1 on 05/16/2023 by [facility]con MD at [facility] Orthopedic Implant Left: Shoulder [employer] [id number] 04/26/2028 [id number] / / [id number] Component Krishna 36mm Std Glenosphere Clr Cd Cmprh Versa-Dial - [id number] Implanted:Qty : 1 on 05/16/2023 by Joshua Rincon MD at [facility] Orthopedic Implant Left: Shoulder [employer] [id number] 10/18/2032 [id number] / / [id number] Stem Hum 55mm 11mm Cmprh Por Mt Shldr Rvrs Sys - [id number] Implanted:Qty : 1 on 05/16/2023 by Joshua Rincon MD at [facility] Orthopedic Implant Left: Shoulder [employer] 01/09/2033 [id number] / / [id number] Tray Hum Cmprh Std Shldr Rvrs - [id number] Implanted:Qty : 1 on 05/16/2023 by Joshua Rincon MD at [facility] Orthopedic Implant Left: Shoulder [employer] [id number] 04/09/2033 [id number] / / [id number] Bsplt Tib 5 Kn Cmnt Fx Brng - Sna - [id number] Implanted:Qty : 1 on 11/10/2020 by Slava Magana DO at [facility] Plate Right: Knee [employer] 06/16/2030 [id number] / NA / [id number] Screw Bn 30mm 6.5mm Cntr Hx Hd Ti Cmprh 3.5mm Strl Rvrs - [id number] Implanted:Qty : 1 on 05/16/2023 by Joshua Rincon MD at [facility] Screw Left: Shoulder [employer] 11/09/2032 [id number] / / [id number] Screw Bn 20mm 4.75mm Lck Fx Ang Hx Hd Ti Cmprh 3.5mm Strl - [id number] Implanted:Qty : 1 on 05/16/2023 by Joshua Rincon MD at [facility] Screw Left: Shoulder [employer] [id number] 02/01/2033 [id number] / / [id number] Screw Bn 15mm 4.75mm Lck Fx Ang Hx Hd Ti Cmprh 3.5mm Strl - [id number] Implanted:Qty : 1 on 05/16/2023 by Joshua Rincon MD at [facility] Screw Left: Shoulder [employer] [id number] 04/01/2033 [id number] / / [id number] Screw Bn 15mm 4.75mm Lck Fx Ang Hx Hd Ti Cmprh 3.5mm Strl - [id number] Implanted:Qty : 1 on 05/16/2023 by Joshua Rincon MD at [facility] Screw Left: Shoulder [employer] [id number] 04/01/2033 [id number] / / [id number] Screw Bn 20mm 4.75mm Va Hx Hd Ti Cmprh 3.5mm Strl Rvrs Shldr - [id number] Implanted:Qty : 1 on 05/16/2023 by [facility] Screw Left: Shoulder [employer] [id number] 01/05/2032 [id number] / / [id number] Insurance MEDICARE COMMERCIAL Advance Directives Documents on File Type Date Recorded Patient Home Care Coordinator Expl anation Durable Power of Applications Programmer Analyst 05/02/2023 12:37 PM POA * Full Code (Latest Code Status on File) Date Activated Date Inactivated Comments 05/16/2023 10:16 AM 05/16/2023 5:16 PM * Full Code Date Activated Date Inactivated Comments 11/10/2020 11:25 AM 11/11/2020 7:52 PM Care Teams Supervisor Sewing Room Relationship Specialty Start Date End Date Will Alvarez MD PCP - General Family Medicine 10/20/20
--- OUTSIDE RECORDS SUMMARY | 2025-03-30 11:27 | XMS_ITS | Encounter Summary ---
Author Organization [facility] Address [address] [place] [address] Care Team Providers Care Chief Wheelage Clerk Name Role Phone Will Alvarez MD Unavailable Slava Magana DO Unavailable [phone] Jeet Aguirre MD Unavailable Osei Arevalo DPM Unavailable [phone] Will Alvarez MD Primary Care Provider [phone] Fiona Ahumada LPN Unavailable Encounter Details Date Type Department Care Team (Late st Contact Info) Description 04/09/2023 Abstract [facility] [address] [place] [address] Will Alvarez MD [address] [address] Social History Tobacco Use Types [...] EDT Procedure Visit [facility] [address] [place] [address] Osei Arevalo DPM [address] [place] [address] documented as of this encounter Visit Diagnoses Not on filedocumented in this encounter Care Teams Chief Wheelage Clerk Relationship Specialty Start Date End Date Will Alvarez MD [address] [place] [address] PCP - ACO Reach 02/08/23 Will Alvarez MD [address] [place] [address] PCP - General Family Medicine 02/10/25 Slava Magana DO [address] [place] [address] Referring Physician Orthopaedic Surgery 10/25/23 Jeet Aguirre MD [address] [facility] Professional building 1 [place] [address] Referring Physician Rheumatology 10/25/23 Osei Arevalo DPM [address] [place] [address] Referring Physician Podiatry 10/25/23 Fiona Ahumada LPN [address] [place] [address] 03/30/25 documented as of this encounter
--- OUTSIDE RECORDS SUMMARY | 2025-03-30 11:27 | XMS_ITS | Encounter Summary ---
Author Organization [facility] Address [address] [place] [address] Care Team Providers Care Top Lift Nailer Name Role Phone Will Alvarez MD Unavailable [phone] Slava Magana DO Unavailable [phone] Jeet Aguirre MD Unavailable Osei Arevalo DPM Unavailable [phone] Will Alvarez MD Primary Care Provider Fiona Ahumada LPN Unavailable Reason for Visit * Reason Comments Med Refill Encounter Details Date Type Department Care Team (Late Contact Info) Description 04/16/2023 Refill [facility] [address] [facility] 150 [place] [address] Linda Perez, BUSINESS PLANNING ANALYST Presence of right artificial knee joint (Primary [...] 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 file Not on file documented as of this encounter Plan of Treatment Upcoming Encounters Date Type Department Care Team (Late st Contact Info) Description 05/19/2025 3:00 PM EDT Procedure Visit [facility] [address] [place] [address] Osei Arevalo DPM [address] [place] [address] documented as of this encounter Visit Diagnoses Diagnosis Presence of right artificial knee joint- Primary documented in this encounter Care Teams Top Lift Nailer Relationship Specialty Start Date End Date Will Alvarez MD [address] [place] [address] PCP - ACO Reach 02/08/23 Will Alvarez MD [address] [place] [address] PCP - General Family Medicine 02/10/25 Slava Magana DO [address] [place] [address] Referring Physician Orthopaedic Surgery 10/25/23 Jeet Aguirre MD [address] [facility] Professional building 1 [place] [address] Referring Physician Rheumatology 10/25/23 Osei Arevalo DPM [address] [place] [address] Referring Physician Podiatry 10/25/23 Fiona Ahumada LPN [address] [place] [address] 03/30/25 documented as of this encounter
--- OUTSIDE RECORDS SUMMARY | 2025-03-30 11:27 | XMS_ITS | Encounter Summary ---
Author Organization [facility] Address [address] [place] [address] Care Team Providers Care Scanning Supervisor Name Role Phone Will Alvarez MD Unavailable [phone] Slava Magana DO Unavailable [phone] Jeet Aguirre MD Unavailable Osei Arevalo DPM Unavailable [phone] Will Alvarez MD Primary Care Provider [phone] Fiona Ahumada LPN Unavailable Encounter Details Date Type Department Care Team (Late st Contact Info) Description 12/06/2023 Orders Only [facility] [address] [place] [address] Will Alvarez MD 112 [facility] [address] [place] [address] Social History Tobacco Use Types Packs/Day [...] 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 Not on file Not on file documented as of this encounter Plan of Treatment Upcoming Encounters Date Type Department Care Team (Late st Contact Info) Description 05/19/2025 3:00 PM EDT Procedure Visit [facility] [address] [place] [address] Osei Arevalo DPM [address] [place] [address] documented as of this encounter Visit Diagnoses Not on filedocumented in this encounter Care Teams Scanning Supervisor Relationship Specialty Start Date End Date Will Alvarez MD [address] [place] [address] PCP - ACO Reach 02/08/23 Will Alvarez MD [address] [place] [address] PCP - General Family Medicine 02/10/25 Slava Magana DO [address] [place] [address] Referring Physician Orthopaedic Surgery 10/25/23 Jeet Aguirre MD [address] [facility] Professional building 1 [place] [address] Referring Physician Rheumatology 10/25/23 Osei Arevalo DPM [address] [place] [address] Referring Physician Podiatry 10/25/23 Fiona Ahumada LPN [address] [place] [address] 03/30/25 documented as of this encounter
--- OUTSIDE RECORDS SUMMARY | 2025-03-30 11:27 | XMS_ITS | Encounter Summary ---
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 Not on file documented as of this encounter Plan of Treatment Upcoming Encounters Date Type Department Care Team (Late st Contact Info) Description 05/19/2025 3:00 PM EDT Procedure Visit [facility] [address] [place] [address] Osei Arevalo DPM [address] [place] [address] documented as of this encounter Visit Diagnoses Not on filedocumented in this encounter Care Teams Data Solutions Architect Relationship Specialty Start Date End Date Will Alvarez MD [address] [place] [address] PCP - ACO Reach 02/08/23 Will Alvarez MD [address] [place] [address] PCP - General Family Medicine 02/10/25 Slava Magana DO [address] [place] [address] Referring Physician Orthopaedic Surgery 10/25/23 Jeet Aguirre MD [address] [facility] Professional building 1 [place] [address] Referring Physician Rheumatology 10/25/23 Osei Arevalo DPM [address] [place] [address] Referring Physician Podiatry 10/25/23 Fiona Ahumada LPN [address] [place] [address] 03/30/25 documented as of this encounter
--- OUTSIDE RECORDS SUMMARY | 2025-03-30 11:27 | XMS_ITS | Encounter Summary ---
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 Not on file documented as of this encounter Plan of Treatment Upcoming Encounters Date Type Department Care Team (Late st Contact Info) Description 05/19/2025 3:00 PM EDT Procedure Visit [facility] [address] [place] [address] Osei Arevalo DPM [address] [place] [address] documented as of this encounter Visit Diagnoses Not on filedocumented in this encounter Care Teams Cable Splicer Assistant Relationship Specialty Start Date End Date Will Alvarez MD [address] [place] [address] PCP - ACO Reach 02/08/23 Will Alvarez MD [address] [place] [address] PCP - General Family Medicine 02/10/25 Slava Magana DO [address] [place] [address] Referring Physician Orthopaedic Surgery 10/25/23 Jeet Aguirre MD [address] [facility] Professional building 1 [place] [address] Referring Physician Rheumatology 10/25/23 Osei Arevalo DPM [address] [place] [address] Referring Physician Podiatry 10/25/23 Fiona Ahumada LPN [address] [place] [address] 03/30/25 documented as of this encounter
--- OUTSIDE RECORDS SUMMARY | 2025-03-30 11:27 | XMS_ITS | Encounter Summary ---
Author Organization [facility] Address [id number] [address] [place] [address] Care Team Providers Care Mechanics Supervisor Name Role Phone Will Alvarez MD Primary Care Provider [phone] Encounter Details Date Type Department Care Team (Late st Contact Info) Description 01/29/2023 Orders Only [facility] [address] [place] [address] Susan Ramirez, JEAN-CLAUDE Left rotator cuff tear [...] Recorded Do you need help finding a [facility] [employer] career center and/or a training program? No [...] documented as of this encounter Care Teams Mechanics Supervisor Relationship Specialty Start Date End Date Will Alvarez MD PCP - General Family Medicine 10/20/20 documented as of this encounter
--- OUTSIDE RECORDS SUMMARY | 2025-03-30 11:27 | XMS_ITS | Encounter Summary ---
Author Organization [facility] Address [address] [place] [address] Care Team Providers Care Senior Network Administrator Name Role Phone Will Alvarez MD Unavailable [phone] Slava Magana DO Unavailable [phone] Jeet Aguirre MD Unavailable [phone] Osei Arevalo DPM Unavailable [phone] Will Alvarez MD Primary Care Provider [phone] Fiona Ahumada LPN Unavailable Encounter Details Date Type Department Care Team (Late st Contact Info) Description 02/20/2023 Abstract [facility] [address] [place] [address] Osei Arevalo DPM [address] [place], [place] [address] Social History Tobacco Use Types Packs/Day Years [...] Procedure Visit [facility] [address] [place] [address] Osei Arevalo DPM [address] [place] [address] documented as of this encounter Visit Diagnoses Not on filedocumented in this encounter Care Teams Senior Network Administrator Relationship Specialty Start Date End Date Will Alvarez MD 112 [facility] 100 [place] [address] PCP - ACO Reach 02/08/23 Will Alvarez MD 112 [facility] 100 [place] [address] PCP - General Family Medicine 02/10/25 Slava Magana DO 112 [facility] 150 [place] [address] Referring Physician Orthopaedic Surgery 10/25/23 Jeet Aguirre MD [address] [facility] Professional building 1 [place] [address] Referring Physician Rheumatology 10/25/23 Osei Arevalo DPM [address] [place] [address] Referring Physician Podiatry 10/25/23 Fiona Ahumada, HAYDEN 112 [facility] 110 [place] [address] 03/30/25 documented as of this encounter
--- OUTSIDE RECORDS SUMMARY | 2025-03-30 11:27 | XMS_ITS | Encounter Summary ---
Author Organization [facility] Address [address] [place] [address] Care Team Providers Care Medical Lab Specialist Name Role Phone Will Alvarez MD Unavailable Slava Magana DO Unavailable [phone] Jeet Aguirre MD Unavailable Osei Arevalo DPM Unavailable [phone] Will Alvarez MD Primary Care Provider [phone] Fiona Ahumada LPN Unavailable Encounter Details Date Type Department Care Team (Late st Contact Info) Description 01/07/2025 Orders Only [facility] [address] [place] [address] Will Alvarez MD [address] [place], [place] [address] Social History Tobacco Use Types Packs/Day Years [...] 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 Not on file Not on file Not on file documented as of this encounter Plan of Treatment Upcoming Encounters Date Type Department Care Team (Late st Contact Info) Description 05/19/2025 3:00 PM EDT Procedure Visit [facility] [address] [place] [address] Osei Arevalo DPM [address] [place] [address] documented as of this encounter Visit Diagnoses Not on filedocumented in this encounter Additional Health Concerns Assessment Noted Time PHQ-9 Depression Total Score: 4 02/05/20 24 8:00 AM EDT documented as of this encounter Care Teams Medical Lab Specialist Relationship Specialty Start Date End Date Will Alvarez MD [address] [place] [address] PCP - ACO Reach 02/08/23 Will Alvarez MD [address] [place] [address] PCP - General Family Medicine 02/10/25 Slava Magana DO [address] [place] [address] Referring Physician Orthopaedic Surgery 10/25/23 Jeet Aguirre MD [address] [facility] Professional building 1 [place] [address] Referring Physician Rheumatology 10/25/23 Osei Arevalo DPM [address] [place], [place] [address] Referring Physician Podiatry 10/25/23 Fiona Ahumada LPN 112 [facility] 110 [place] [address] 03/30/25 documented as of this encounter
--- OUTSIDE RECORDS SUMMARY | 2025-03-30 11:27 | XMS_ITS ---
Author Organization [facility] Address [address] [place] [address] Care Team Providers Care Pizza Baker Name Role Phone Will Alvarez MD Unavailable Jeet Aguirre MD Unavailable Osei Arevalo DPM Unavailable [phone] Will Alvarez MD Primary Care Provider [phone] Fiona Ahumada LPN Unavailable Chronic Care Management (CCM) Status:Identified (Enrolling) Start date:03/30/2025 Enrollment reason:Identified by Health Plan Overview Please assess for Care Management needs. Case Team Name Relationship Phone Fiona Ahumada LPN(Responsible Staff) [phone] Continued Care and Services Coordination
--- OUTSIDE RECORDS SUMMARY | 2025-03-30 11:27 | XMS_ITS | Encounter Summary ---
Author Organization [facility] Address [address] [place] [address] Care Team Providers Care Industrial Diamond Polisher Name Role Phone Will Alvarez MD Unavailable Slava Magana DO Unavailable [phone] Jeet Aguirre MD Unavailable Osei Arevalo DPM Unavailable [phone] Will Alvarez MD Primary Care Provider [phone] Fiona Ahumada LPN Unavailable Encounter Details Date Type Department Care Team (Late st Contact Info) Description 04/03/2023 Abstract [facility] [address] [place] [address] Will Alvarez MD [address] [address] Social History Tobacco Use Types [...] EDT Procedure Visit [facility] [address] [place] [address] Osei Arevalo DPM [address] [place] [address] documented as of this encounter Visit Diagnoses Not on filedocumented in this encounter Care Teams Industrial Diamond Polisher Relationship Specialty Start Date End Date Will Alvarez MD [address] [place] [address] PCP - ACO Reach 02/08/23 Will Alvarez MD [address] [place] [address] PCP - General Family Medicine 02/10/25 Slava Magana DO [address] [place] [address] Referring Physician Orthopaedic Surgery 10/25/23 Jeet Aguirre MD [address] [facility] Professional building 1 [place] [address] Referring Physician Rheumatology 10/25/23 Osei Arevalo DPM [address] [place] [address] Referring Physician Podiatry 10/25/23 Fiona Ahumada LPN [address] [place] [address] 03/30/25 documented as of this encounter
--- OUTSIDE RECORDS SUMMARY | 2025-03-30 11:27 | XMS_ITS | Encounter Summary ---
Author Organization [facility] Address [address] [place] [address] Care Team Providers Care Automatic Tire Tester Name Role Phone Will Alvarez MD Unavailable Slava Magana DO Unavailable [phone] Jeet Aguirre MD Unavailable Osei Arevalo DPM Unavailable Will Alvarez MD Primary Care Provider [phone] Fiona Ahumada LPN Unavailable Encounter Details Date Type Department Care Team (Late st Contact Info) Description 10/30/2023 Abstract [facility] [address] [place] [address] Slava Magana, DO [address] [id number] Social History Tobacco Use Types Packs/Day Years [...] Procedure Visit [facility] [address] [place] [address] Osei Arevalo DPM [address] [place] [address] documented as of this encounter Visit Diagnoses Not on filedocumented in this encounter Care Teams Automatic Tire Tester Relationship Specialty Start Date End Date Will Alvarez MD [address] [place] [address] PCP - ACO Reach 02/08/23 Will Alvarez MD [address] [place] [address] PCP - General Family Medicine 02/10/25 Slava Magana DO [address] [place] [address] Referring Physician Orthopaedic Surgery 10/25/23 Jeet Aguirre MD [address] [facility] Professional building 1 [place] [address] Referring Physician Rheumatology 10/25/23 Osei Arevalo DPM [address] [place] [address] Referring Physician Podiatry 10/25/23 Fiona Ahumada LPN [address] [place] [address] 03/30/25 documented as of this encounter
--- OUTSIDE RECORDS SUMMARY | 2025-03-30 11:27 | XMS_ITS | Encounter Summary ---
Author Organization [facility] Address [address] [place] [address] Care Team Providers Care Patient Financial Services Manager Name Role Phone Will Alvarez MD Unavailable Jeet Aguirre MD Unavailable Osei Arevalo DPM Unavailable Will Alvarez MD Primary Care Provider [phone] Fiona Ahumada LPN Unavailable Encounter Details Date Type Department Care Team (Late st Contact Info) Description 03/24/2025 Abstract [facility] 100 112 [facility] [address] [place] [address] Will Alvarez MD 112 [facility] [address] [place] [address] Social History Tobacco Use Types Packs/Day Years [...] 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 file documented as of this encounter Plan of Treatment Upcoming Encounters Date Type Department Care Team (Late st Contact Info) Description 05/19/2025 3:00 PM EDT Procedure Visit [facility] [address] [place] [address] Osei Arevalo DPM [address] [place] [address] documented as of this encounter Visit Diagnoses Not on filedocumented in this encounter Additional Health Concerns Assessment Noted Time PHQ-9 Depression Total Score: 5 02/03/20 25 9:00 AM EDT documented as of this encounter Care Teams Patient Financial Services Manager Relationship Specialty Start Date End Date Will Alvarez MD [address] [place] [address] PCP - ACO Reach 02/08/23 Will Alvarez MD [address] [place] [address] PCP - General Family Medicine 02/10/25 Jeet Aguirre MD [address] Professional building 1 [place] [address] Referring Physician Rheumatology 10/25/23 Osei Arevalo DPM [address] [place] [address] Referring Physician Podiatry 10/25/23 Fiona Ahumada LPN [address] [place] [address] 03/30/25 documented as of this encounter
--- OUTSIDE RECORDS SUMMARY | 2025-03-30 11:28 | XMS_ITS | Encounter Summary ---
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 documented as of this encounter Plan of Treatment Upcoming Encounters Date Type Department Care Team ( Contact Info) Description 05/19/2025 3:00 PM EDT Procedure Visit [facility] [address] [place] [address] Osei Arevalo DPM [address] [place] [address] documented as of this encounter Visit Diagnoses Not on filedocumented in this encounter Additional Health Concerns Assessment Noted Time PHQ-9 Depression Total Score: 5 02/03/20 25 9:00 AM EDT documented as of this encounter Care Teams City Councilman Relationship Specialty Start Date End Date Will Alvarez MD [address] [place] [address] PCP - ACO Reach 02/08/23 Will Alvarez MD [address] [address] PCP - General Family Medicine 02/10/25 Jeet Aguirre MD [address] [facility] Professional building 1 [place] [address] Referring Physician Rheumatology 10/25/23 Osei Arevalo DPM [address] [place] [address] Referring Physician Podiatry 10/25/23 documented as of this encounter
--- OUTSIDE RECORDS SUMMARY | 2025-03-30 11:28 | XMS_ITS | Encounter Summary ---
Author Organization [facility] Address [address] [place] [address] Care Team Providers Care Erp Developer Name Role Phone Will Alvarez MD Unavailable Slava Magana DO Unavailable [phone] Jeet Aguirre MD Unavailable [phone] Osei Arevalo DPM Unavailable [phone] Will Alvarez MD Primary Care Provider [phone] Fiona Ahumada LPN Unavailable Encounter Details Date Type Department Care Team (Late st Contact Info) Description 05/07/2023 Abstract [facility] [address] [place] [address] Will Alvarez MD [address] [address] Social History Tobacco Use Types [...] EDT Procedure Visit [facility] [address] [place] [address] Osei Arevalo DPM [address] [place] [address] documented as of this encounter Visit Diagnoses Not on filedocumented in this encounter Care Teams Erp Developer Relationship Specialty Start Date End Date Will Alvarez MD [address] [place] [address] PCP - ACO Reach 02/08/23 Will Alvarez MD [address] [place] [address] PCP - General Family Medicine 02/10/25 Slava Magana DO [address] [place] [address] Referring Physician Orthopaedic Surgery 10/25/23 Jeet Aguirre MD [address] [facility] Professional building 1 [place] [address] Referring Physician Rheumatology 10/25/23 Osei Arevalo DPM [address] [place] [address] Referring Physician Podiatry 10/25/23 Fiona Ahumada LPN [address] [place] [address] 03/30/25 documented as of this encounter
--- OUTSIDE RECORDS SUMMARY | 2025-03-30 11:28 | XMS_ITS | Encounter Summary ---
Author Organization [facility] Address [address] [place] [address] Care Team Providers Care Jewelry Estimator Name Role Phone Will Alvarez MD Unavailable [phone] Jeet Aguirre MD Unavailable Osei Arevalo DPM Unavailable [phone] Will Alvarez MD Primary Care Provider Fiona Ahumada LPN Unavailable Encounter Details Date Type Department Care Team (Late st Contact Info) Description 03/16/2025 Abstract [facility] 100 112 [facility] 100 [place] [address] Will Alvarez MD 112 [facility] 100 [place] [address] Social History Tobacco Use Types Packs/Day Years [...] 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 file documented as of this encounter Plan of Treatment Upcoming Encounters Date Type Department Care Team (Late st Contact Info) Description 05/19/2025 3:00 PM EDT Procedure Visit [facility] [address] [place] [address] Osei Arevalo DPM [address] [place] [address] documented as of this encounter Visit Diagnoses Not on filedocumented in this encounter Additional Health Concerns Assessment Noted Time PHQ-9 Depression Total Score: 5 02/03/20 25 9:00 AM EDT documented as of this encounter Care Teams Jewelry Estimator Relationship Specialty Start Date End Date Will Alvarez MD [address] [place] [address] PCP - ACO Reach 02/08/23 Will Alvarez MD [address] [place] [address] PCP - General Family Medicine 02/10/25 Jeet Aguirre MD [address] Professional building 1 [place] [address] Referring Physician Rheumatology 10/25/23 Osei Arevalo DPM [address] [place] [address] Referring Physician Podiatry 10/25/23 Fiona Ahmuada LPN [address] [place] [address] 03/30/25 documented as of this encounter
--- OUTSIDE RECORDS SUMMARY | 2025-03-30 11:28 | XMS_ITS | Clinical Summary ---
Author Organization [facility] Address [address] [place] [address] Phone Care Team Providers Care Broadcast Transmitter Operator Name Role Phone Unavailable Primary Care Provider [...]
--- OUTSIDE RECORDS SUMMARY | 2025-03-30 11:28 | XMS_ITS | Encounter Summary ---
Author Organization [facility] Address [address] [place] [address] Care Team Providers Care Windows Support Engineer Name Role Phone Will Alvarez MD Unavailable [phone] Jeet Aguirre MD Unavailable [phone] Osei Arevalo DPM Unavailable [phone] Will Alvarez MD Primary Care Provider Encounter Details Date Type Department Care Team (Late st Contact Info) Description 03/18/2025 Bamboo flowsheet [facility] [address] [place] [address] Will Alvarez MD [address] [place] [address] (Fax) Social History Tobacco Use Types Packs/Day [...] EDT Procedure Visit [facility] [address] [place] [address] Osei Arevalo DPM [address] [place], [place] [address] documented as of this encounter Visit Diagnoses Not on filedocumented in this encounter Additional Health Concerns Assessment Noted Time PHQ-9 Depression Total Score: 5 02/03/20 25 9:00 AM EDT documented as of this encounter Care Teams Windows Support Engineer Relationship Specialty Start Date End Date Will Alvarez MD [address] [address] PCP - ACO Reach 02/08/23 Will Alvarez MD [address] [address] PCP - General Family Medicine 02/10/25 Jeet Aguirre MD [address] [facility] Professional building [address] [place] [phone] Referring Physician Rheumatology 10/25/23 Osei Arevalo DPM [address] [place] [address] Referring Physician Podiatry 10/25/23 documented as of this encounter
--- OUTSIDE RECORDS SUMMARY | 2025-03-30 11:28 | XMS_ITS | Encounter Summary ---
Author Organization [facility] Address [address] [place] [address] Care Team Providers Care Chute Loader Name Role Phone Wlil Alvarez MD Unavailable Jeet Aguirre MD Unavailable [phone] Osei Arevalo DPM Unavailable [phone] Will Alvarez MD Primary Care Provider [phone] Fiona Ahumada LPN Unavailable Encounter Details Date Type Department Care Team (Late Contact Info) Description 02/18/2025 Orders Only [facility] [address] [place] [address] [place], [place] Social History Tobacco Use Types Packs/Day Years [...] EDT Procedure Visit [facility] [address] [place] [address] Osei Arevalo DPM [address] [place], [place] [address] documented as of this encounter Visit Diagnoses Not on filedocumented in this encounter Additional Health Concerns Assessment Noted Time PHQ-9 Depression Total Score: 5 02/03/20 25 9:00 AM EDT documented as of this encounter Care Teams Chute Loader Relationship Specialty Start Date End Date Will Alvarez MD [address] [place] [address] PCP - ACO Reach 02/08/23 Will Alvarez MD [address] [place] [address] PCP - General Family Medicine 02/10/25 Jeet Aguirre MD [address] [facility] Professional building 1 [place] [address] Referring Physician Rheumatology 10/25/23 Osei Arevalo DPM [address] [place] [address] Referring Physician Podiatry 10/25/23 Fiona Ahumada LPN [address] [place] [address] 03/30/25 documented as of this encounter
--- OUTSIDE RECORDS SUMMARY | 2025-03-30 11:28 | XMS_ITS | Encounter Summary ---
Author Organization [facility] Address [address] [place] [address] Care Team Providers Care Cad Librarian Name Role Phone Will Alvarez MD Unavailable [phone] Slava Magana DO Unavailable [phone] Jeet Aguirre MD Unavailable [phone] Osei Arevalo DPM Unavailable [phone] Will Alvarez MD Primary Care Provider Fiona Ahumada LPN Unavailable Reason for Visit * Reason Comments Med Refill Encounter Details Date Type Department Care Team (Late Contact Info) Description 05/01/2024 Refill [facility] [address] [facility] 150 [place] [address] Linda Perez NP Social History Tobacco Use [...] 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 Not on file documented as of this encounter Plan of Treatment Upcoming Encounters Date Type Department Care Team (Late st Contact Info) Description 05/19/2025 3:00 PM EDT Procedure Visit [facility] [address] [facility] [address] Osei Arevalo DPM [address] [place] [address] documented as of this encounter Visit Diagnoses Not on filedocumented in this encounter Additional Health Concerns Assessment Noted Time PHQ-9 Depression Total Score: 4 02/05/20 24 8:00 AM EDT documented as of this encounter Care Teams Cad Librarian Relationship Specialty Start Date End Date Will Alvarez MD [address] [place] [address] PCP - ACO Reach 02/08/23 Will Alvarez MD [address] [place] [address] PCP - General Family Medicine 02/10/25 Slava Magana DO [address] [place] [address] Referring Physician Orthopaedic Surgery 10/25/23 Jeet Aguirre MD [address] [facility] Professional building 1 [place] [address] Referring Physician Rheumatology 10/25/23 Osei Arevalo DPM [address] [place] [address] Referring Physician Podiatry 10/25/23 Fiona Ahumada LPN [address] [place] [address] 03/30/25 documented as of this encounter
--- OUTSIDE RECORDS SUMMARY | 2025-03-30 11:28 | XMS_ITS | Encounter Summary ---
Author Organization [facility] Address [address] [place] [address] Care Team Providers Care Fiberglass Machine Operator Name Role Phone Will Alvarez MD Unavailable [phone] Slava Magana DO Unavailable [phone] Jeet Aguirre MD Unavailable Osei Arevalo DPM Unavailable [phone] Will Alvarez MD Primary Care Provider [phone] Fiona Ahumada LPN Unavailable Encounter Details Date Type Department Care Team (Late st Contact Info) Description 08/28/2023 Orders Only [facility] [address] [place] [address] Jeet Aguirre MD [address] 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 file documented as of this encounter Plan of Treatment Upcoming Encounters Date Type Department Care Team (Late st Contact Info) Description 05/19/2025 3:00 PM EDT Procedure Visit [facility] [address] [place] [address] Osei Arevalo, DPKaleigh 190 [facility] [place] [address] documented as of this encounter Procedures Procedure [...] on filedocumented in this encounter Care Teams Fiberglass Machine Operator Relationship Specialty Start Date End Date Will Alvarez MD [address] [place] [address] PCP - ACO Reach 02/08/23 Will Alvarez MD [address] [place] [address] PCP - General Family Medicine 02/10/25 Slava Magana DO [address] [place] [address] Referring Physician Orthopaedic Surgery 10/25/23 Jeet Aguirre MD [address] [facility] Professional building 1 [place] [address] Referring Physician Rheumatology 10/25/23 Osei Arevalo DPM [address] [place] [address] Referring Physician Podiatry 10/25/23 Fiona Ahumada LPN [address] [place] [address] 03/30/25 documented as of this encounter
--- OUTSIDE RECORDS SUMMARY | 2025-03-30 11:28 | XMS_ITS | Encounter Summary ---
Author Organization [facility] Address [address] [place] [address] Care Team Providers Care Freight Loading Supervisor Name Role Phone Will Alvarez MD Unavailable Slava Magana DO Unavailable [phone] Jeet Aguirre MD Unavailable Osei Arevalo DPM Unavailable [phone] Will Alvarez MD Primary Care Provider Fiona Ahumada LPN Unavailable Encounter Details Date Type Department Care Team (Late st Contact Info) Description 08/19/2024 Orders Only [facility] [address] [place] [address] Angie Early, OD [address] [place] [address] Social History Tobacco Use Types Packs/Day Years [...] 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 Not on file documented as of this encounter Plan of Treatment Upcoming Encounters Date Type Department Care Team (Late st Contact Info) Description 05/19/2025 3:00 PM EDT Procedure Visit [facility] [address] [place] [address] Osei Arevalo, DPKaleigh [address] [place], [place] [address] documented as of this encounter Procedures Procedure Name Priority Date/Time Associated Diagnosis Comments DIABETIC RETINOPATHY SCREENING - OU - BOTH EYES Routine 07/18/2024 10:02 AM EDT documented in this encounter Results * Diabetic Retinopathy Screening - OU - Both Eyes (07/18/2024 10:02 AM EDT) Anatomical Region Laterality Modality Head Other Angie [facility] OD OPHTH PHOTOGRAPHY Final Result documented in this encounter Visit Diagnoses Not on filedocumented in this encounter Additional Health Concerns Assessment Noted Time PHQ-9 Depression Total Score: 4 02/05/20 24 8:00 AM EDT documented as of this encounter Care Teams Freight Loading Supervisor Relationship Specialty Start Date End Date Will Alvarez MD 112 [facility] 100 [place] [address] PCP - ACO Reach 02/08/23 Will Alvarez MD 112 [facility] 100 [place] [address] PCP - General Family Medicine 02/10/25 Slava Magana DO 112 [facility] [address] [place] [address] Referring Physician Orthopaedic Surgery 10/25/23 Jeet Aguirre MD [address] [facility] Professional building 1 [place] [address] Referring Physician Rheumatology 10/25/23 Osei Arevalo DPM [address] [facility] [place] [address] Referring Physician Podiatry 10/25/23 Fiona Ahumada LPN 112 [facility] 110 [place], [place] [address] 03/30/25 documented as of this encounter
--- OUTSIDE RECORDS SUMMARY | 2025-03-30 11:28 | XMS_ITS | Encounter Summary ---
Author Organization [facility] Address [address] [place] [address] Care Team Providers Care Sustainable Products Marketing Manager Name Role Phone Will Alvarez MD Unavailable [phone] Slava Magana DO Unavailable [phone] Jeet Aguirre MD Unavailable Osei Arevalo DPM Unavailable [phone] Will Alvarez MD Primary Care Provider [phone] Fiona Ahumada LPN Unavailable Encounter Details Date Type Department Care Team (Late st Contact Info) Description 07/09/2024 Orders Only [facility] [address] [place] [address] Will Alvarez MD [address] [place], [place] [address] Social History Tobacco Use Types Packs/Day Years [...] EDT Procedure Visit [facility] [address] [place] [address] Osei Arevalo, DPKaleigh [address] [place], [place] [address] documented as of this encounter Procedures Procedure [...] documented as of this encounter Care Teams Sustainable Products Marketing Manager Relationship Specialty Start Date End Date Will Alvarez MD 112 [facility] [address] [place] [address] PCP - ACO Reach 02/08/23 Will Alvarez MD 112 [facility] [address] [place] [address] PCP - General Family Medicine 02/10/25 Slava Magana DO [address] [facility] [address] [place] [address] Referring Physician Orthopaedic Surgery 10/25/23 Jeet Aguirre MD [address] Professional building 1 [place] [address] Referring Physician Rheumatology 10/25/23 Osei Arevalo DPM [address] [place] [address] Referring Physician Podiatry 10/25/23 Fiona Ahumada LPN 112 [facility] 110 [place], [place] [address] 03/30/25 documented as of this encounter
--- OUTSIDE RECORDS SUMMARY | 2025-03-30 11:28 | XMS_ITS | Encounter Summary ---
Author Organization [facility] Address [address] [place] [address] Care Team Providers Care Iron Erector Name Role Phone Will Alvarez MD Unavailable [phone] Slava Magana DO Unavailable [phone] Jeet Aguirre MD Unavailable Osei Arevalo DPM Unavailable Will Alvarez MD Primary Care Provider Fiona Ahumada LPN Unavailable Encounter Details Date Type Department Care Team (Late st Contact Info) Description 08/07/2023 Abstract [facility] [address] [place] [address] Joshua Rincon MD [address] [facility] [place] [address] Social History Tobacco Use Types [...] 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 Not on file documented as of this encounter Plan of Treatment Upcoming Encounters Date Type Department Care Team (Late st Contact Info) Description 05/19/2025 3:00 PM EDT Procedure Visit [facility] [address] [place] [address] Osei Arevalo DPM [address] [place] [address] documented as of this encounter Visit Diagnoses Not on filedocumented in this encounter Care Teams Iron Erector Relationship Specialty Start Date End Date Will Alvarez MD [address] [place] [address] PCP - ACO Reach 02/08/23 Will Alvarez MD [address] [place] [address] PCP - General Family Medicine 02/10/25 Slava Magana DO [address] [place] [address] Referring Physician Orthopaedic Surgery 10/25/23 Jeet Aguirre MD [address] [facility] Professional building 1 [place] [address] Referring Physician Rheumatology 10/25/23 Osei Arevalo DPM [address] [place] [address] Referring Physician Podiatry 10/25/23 Fiona Ahumada LPN [address] [place] [address] 03/30/25 documented as of this encounter
--- OUTSIDE RECORDS SUMMARY | 2025-03-30 11:28 | XMS_ITS | Encounter Summary ---
Author Organization [facility] Address [address] [place] [address] Care Team Providers Care Flatbed Truck Driver Name Role Phone Will Alvarez MD Unavailable Slava Magana DO Unavailable [phone] Jeet Aguirre MD Unavailable [phone] Osei Arevalo DPM Unavailable [phone] Will Alvarez MD Primary Care Provider [phone] Fiona Ahumada LPN Unavailable Encounter Details Date Type Department Care Team (Late st Contact Info) Description 05/11/2023 Orders Only [facility] [address] [place] [address] Will Alvarez MD 112 [facility] [address] [place] [id number] Social History Tobacco Use Types Packs/Day Years [...] Visit [facility] [address] [place] [address] Osei Arevalo, DPKaleigh [address] [place], [place] [phone] documented as of this encounter Procedures Procedure [...] on filedocumented in this encounter Care Teams Flatbed Truck Driver Relationship Specialty Start Date End Date Will Alvarez MD [address] [place] [address] PCP - ACO Reach 02/08/23 Will Alvarez MD [address] [place] [address] PCP - General Family Medicine 02/10/25 Slava Magana DO [address] [place] [address] Referring Physician Orthopaedic Surgery 10/25/23 Jeet Aguirre MD [address] [facility] Professional building [address] [place] [address] Referring Physician Rheumatology 10/25/23 Osei Arevalo DPM [address] [place] [address] Referring Physician Podiatry 10/25/23 Fiona Ahumada LPN [address] [place] [address] 03/30/25 documented as of this encounter
--- OUTSIDE RECORDS SUMMARY | 2025-03-30 11:28 | XMS_ITS | Clinical Summary ---
Author Organization [facility] Address [address] [place] [address] Care Team Providers Care Director Of Email Marketing Name Role Phone Will Tim MD Unavailable Jeet Aguirre MD Unavailable Osei Arevalo DPM Unavailable Will Tim MD Primary Care Provider Fiona Ahumada LPN Unavailable Allergies Active Allergy Reactions Criticality Noted Date [...] Do not crush, chew, or split. Active atorvastatin (Lipitor) 10 MG tabletIndications: Mixed hyperlipidemia Take 1 tablet (10 mg) by mouth at bedtime 90 tablet 3 5 10/20/19 26 Active nabumetone (Relafen) 750 MG tablet Take 750 mg by mouth in the morning and 750 mg before bedtime. 5 Active gabapentin (Neurontin) 100 MG capsule Take 100 mg by mouth 3 (three) times a day 5 Active calcium citrate 250 MG tabletIndications: Osteopenia 1 tablet 2-3 times daily as directed. 5 Active cholecalciferol (Vitamin D-3) 125 MCG (5000 UT) tabletIndications: Vitamin D Deficiency OTC vitamin D3 5000 units, Winter dose, take 1 capsule daily. 5 Active Menaquinone-7 (Vitamin K2) 100 MCG capsuleIndications :Osteopenia, unspecified location Take 1 capsule by mouth Daily 5 Active metFORMIN (Glucophage) 1000 MG tabletIndications: Impaired glucose tolerance test Take 1 tablet (1,000 mg) by mouth in the morning and 1 tablet (1,000 mg) in the evening. Take with meals. 180 tablet 1 5 09/19/19 26 Active DULoxetine (Cymbalta) [address] capsuleIndications :Recurrent major depressive disorder, in partial remission Take 1 capsule (60 mg) by mouth Daily 90 capsule 1 5 06/21/20 25 Active metFORMIN (Glucophage) 1000 MG tabletIndications: Impaired glucose tolerance test Take 1 tablet (1,000 mg) by mouth in the morning and 1 tablet (1,000 mg) in the evening. Take with meals. 180 tablet 1 4 03/23/20 25 Discontin ued(Reord er) DULoxetine (Cymbalta) [address] capsuleIndications :Recurrent major depressive disorder, in partial remission Take 1 capsule (60 mg) by mouth Daily 30 capsule 5 03/18/20 25 Discontin ued(Reord er) DULoxetine (Cymbalta) [address] capsuleIndications :Recurrent major depressive disorder, in partial remission Take 1 capsule (60 mg) by mouth Daily 30 capsule 5 03/23/20 25 Discontin ued(Reord er) Active Problems Problem [...] Encounters Date Type Department Care Team Description 03/24/2025 Abstract [facility] [address] [place] [address] Will Tim MD 03/23/2025 Telephone [facility] [address] [place] [address] Will Tim MD Care Coordination 03/18/2025 2:00 PM EDT Office Visit [facility] [address] [place] [address] Will Tim MD Recurrent major depressive disorder, in partial remission (Primary Dx); Osteopenia, unspecified location; Impaired glucose tolerance test 03/18/2025 Bamboo flowsheet [facility] [address] [facility] 100 [place] [address] Will Tim MD 03/18/2025 Travel 03/16/2025 Abstract [facility] [address] [facility] [address] [place] [address] Will Tim MD 03/03/2025 Telephone [facility] [address] [facility] 100 [place] [address] Jessie Rosen RN Results 02/27/2025 Clinisync Result Encounter [facility] External Department Unsolicited Provider, Generic External Data 02/27/2025 Clinisync Result Encounter [facility] External Department Unsolicited Will Tim MD 02/18/2025 Orders Only [facility] [address] [facility] 100 [place] [address] [place] 02/18/2025 Orders Only [facility] [address] [facility] 100 [place] [address] [place], Recurrent major depressive disorder, in partial remission 02/15/2025 Orders Only [facility] [address] [place] [address] Will Tim MD 02/11/2025 2:30 PM EDT Procedure Visit [facility] [address] [place] [address] Osei Arevalo DPM Onychomycosis (Primary Dx); Onychodystrophy; Diabetic polyneuropathy associated with type 2 diabetes mellitus (HCC) 02/11/2025 Bamboo flowsheet [facility] [address] [place] [address] Osei Arevalo DPM 02/11/2025 Travel 02/10/2025 Travel 02/02/2025 9:00 AM EDT Office Visit [facility] [address] [facility] 100 [place] [address] Will Tim MD Encounter for Medicare annual [...] [facility] [address] [facility] [address] [place] [address] Will Tim MD 02/02/2025 Travel 01/20/2025 Telephone [facility] [address] [facility] 100 [place] [address] Lynn Aguiar MA Referral 01/07/2025 Telephone [facility] [address] [facility] [address] [place] [address] Will Tim MD 01/07/2025 Orders Only [facility] [address] [facility] [address] [place] [address] Will Tim MD 01/06/2025 Telephone [facility] [address] [facility] [address] [place] [address] Will Tim MD 01/05/2025 10:30 AM EDT Treatment [facility] [address] [place] [address] Michela Campos, PT Chronic pain syndrome (Primary Dx); Right leg weakness; Neuropathy; Right foot pain 01/05/2025 Bamboo flowsheet [facility] [address] [place] [address] Michela Campos, PT 01/05/2025 Travel 01/01/2025 2:00 PM EDT Treatment [facility] [address] [place] [address] Kelblejessenia, Jaimee, [employer] Chronic pain syndrome (Primary Dx); Right leg weakness 01/01/2025 Bamboo flowsheet [facility] [address] [place] [address] KelcareyAudrey ruelasJaimee, PROGRAMMER [employer] 01/01/2025 Travel 12/30/2024 2:00 PM EDT Treatment [facility] [address] [place] [address] KelbleAudrey ruelasJaimee, PROGRAMMER [employer] Chronic pain syndrome (Primary Dx); Right leg weakness 12/30/2024 Bamboo flowsheet [facility] [address] [facility] [address] [place] [address] Audrey Velazquezissa, PROGRAMMER [employer] 12/30/2024 Travel from Last 3 Months Immunizations Immunization [...] 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 Not on [...] EDT Procedure Visit [facility] [address] [place] [address] Osei Arevalo, DPM [address] [place] [address] Health Maintenance Due Date Last Done Comments CT Colonography 1950 FIT 1950 FOBT 1950 Sigmoidoscopy 1950 Diabetes: Hemoglobin A1C 05/16/2025 025, 05/30/2024, 05/02/2023, Additional history exists Influenza Vaccine (#1) 2025 , 06/13/2023, 06/13/2023, Additional history exists Medicare Annual Wellness (AWV) 02/02/2026 0 02/02/2025, 02/05/2024, 08/21/2022 Diabetes: Urine Protein Screening 02/13/2026 02/13/2025, 11/29/2021, 06/14/2018 Mammogram 02/27/2026 02/27/2025, 11/0 01/2021, 02/23/2020, Additional history exists Diabetes: Retinopathy Screening 07/18/2026 , 09/13/2022 FIT-DNA [...] (03/17/2025 10:48 AM EDT) Will Tim MD IMPinky DXA PROCEDURES Final Res ult * MR LUMBAR SPINE WO CON (02/27/2025 3:36 PM EDT) Anatomical Region Laterality Modality Other 02/27/2025 3:36 PM EDT Narrative 02/27/2025 3:39 PM EDT [address] [address] Magnetic Resonance Report Signed Patient: NEHA DE LA GARZA MR#: [id number] : 1950 Acct:[id number] Age/Sex: 74 / F ADM Date: 02/27/25 Loc: MRI Attending Dr: Quin Hernandez NP Ordering Physician: Quin Hernandez NP Date of Service: 02/27/25 Procedure(s): MR lumbar spine wo con Accession Number(s): [id number] cc: Quin Hernandez NP; WILL TIM [address] [address] Patient Name: NEHA DE LA GARZA MRN: [id number] date: 1950 Sex: F Assigned Patient Location: MRI Current Patient Location: MRI Accession/Order Number: [id number] Exam Date: 02/27/2025 15:30 Report Date: 02/27/2025 [...] Salcedo M.D. 02/27/2025 3:36 PM Dictation Location: [place] [address] Electronically authenticated by: [id number] Y Date: 02/27/2025 15:36 Dictated By: Guido Salcedo D.O. Signed By: 02/27/25 1539 DD/ 1536 TD/TT: Rubbing Bed Operator: Procedure Note Radiology, Radiologist, - 02/27/2025 [place] [address] Magnetic Resonance Report Signed Patient: NEHA DE LA GARZA GMR#: [id number] : 1950cct:[id number] Age/Sex: 74 / FADM Date: 02/27/25 Loc: MRI Attending Dr: Quin Hernandez NP Ordering Physician: Quin Hernandez NP Date of Service: 02/27/25 Procedure(s): MR lumbar spine wo con Accession Number(s): [id number] cc: Quin Hernandez NP; WILL TIM [place] [address] Patient Name: NEHA DE LA GARZA MRN: [id number] date: 1950 Sex: F Assigned Patient Location: MRI Current Patient Location: MRI Accession/Order Number: [id number] Exam Date: 02/27/2025 15:30 Report Date: 02/27/2025 [...] Salcedo M.D. 02/27/2025 3:36 PM Dictation Location: [place] [address] Electronically authenticated by: [id number] Y Date: 5:36 Dictated By: Guido Salcedo D.O. Signed By:02/27/25 1539 DD/ 1536 TD/TT: Rubbing Bed Operator: us Generic External Data Provider [facility] Final Result * MM TOMOSYNTHESIS SCREENING BI (02/27/2025 2:37 PM EDT) Anatomical Region Laterality Modality Other 02/27/2025 2:37 PM EDT Narrative 02/27/2025 2:38 [place] [address] Mammography Report Signed Patient: NEHA DE LA GARZA MR#: [id number] : 1950 Acct:[id number] Age/Sex: 74 / F ADM Date: 02/27/25 Loc: MAMMO Attending Dr: WILL TIM Ordering Physician: WILL TIM Results: Date of Service: 02/27/25 Follow Up: Procedure(s): MM tomosynthesis screening BI Accession Number(s): [id number] cc: WILL TIM Patient Name: NEHA DE LA GARZA MR#: [id number] : 1950 Exam Date: 02/27/2025 Ordering Doctor: [...] throat cancer at age 77. LOCATION: The [facility] BREAST COMPOSITION: The breasts are almost entirely [...] Salcedo D.O. Signed By: 02/27/25 1438 DD/ 36 TD/TT: Rubbing Bed Operator: Procedure Note Radiology, Radiologist, MD - 02/27/2025 [place] [address] Mammography Report Signed Patient: NEHA DE LA GARZA GMR#: [id number] : 1950cct:[id number] Age/Sex: 74 / FADM Date: 02/27/25 Loc: MAMMO Attending Dr: WILL TIM Ordering Physician: WILL TIMResults: Date of Service: 02/27/25Follow Up: Procedure(s): MM tomosynthesis screening BI Accession Number(s): [id number] cc: WILL TIM Patient Name: NEHA DE LA GARZA MR#: [id number] : 1950 Exam Date: 02/27/2025 Ordering Doctor: [...] throat cancer at age 77. LOCATION: The [facility] BREAST COMPOSITION: The breasts are almost entirely [...] D.O. Signed By:02/27/25 1438 DD/ 1437 TD/TT: Rubbing Bed Operator: Will Tim MD [facility] Final Resu [...] Performing Organization Information Site ID: QPT Name: [facility] Address: [address] [place] [address], [address] [place] [phone] Director: Edgardo Lake MD Will Tim MD [...] diagnosis of diabetes in children. According to [place] Diabetes Association (ADA) guidelines, hemoglobin A1c <7.0% represents optimal control in non- diabetic patients. Different metrics may apply to specific patient populations. Standards of Medical Care in Diabetes(ADA). Blood Venous blood specimen / Unknown 02/13/2025 8:31 AM EDT 02/13/2025 3:49 PM EDT Narrative Resulting Agency Comment Performing Organization Information Site ID: QPT Name: [facility] Address: [address] [place] [address], [address] [place] [phone] Director: Edgardo Lake MD Will Tim MD LAB BLOOD ORDERABLES Final R esult [facility] * Diabetic Retinopathy Screening - OU - Both Eyes (07/18/2024 10:02 AM EDT) Anatomical Region Laterality Modality Head Other Angie Nneka OD OPHTH PHOTOGRAPHY Final Result * Colonoscopy (07/02/2024 11:03 AM EDT) Anatomical Region Laterality Modality Endoscopy Will Tim MD ENDOSCOPY PROCEDURE ORDERABL ES Final Result * (ABNORMAL) Cologuard?? colon cancer screening (02/24/2024 9:00 AM EDT) Pathologist [facility] NONINV COLON CA DNA+OCC BLD SCRN STL-IMP Positive( A) Negative 03/03/2024 5:41 PM EDT [facility] (CLIA #:[id number]) Comment: POSITIVE TEST RESULT. A positive Cologuard [...] (Henry Wynn al, N Engl J Med 2014;370(14):9381-1220.) Cologuard may produce a false negative or false positive result (no colorectal cancer or precancerous polyp present at colonoscopy follow up). A negative Cologuard test result does not guarantee the absence of CRC or advanced adenoma (pre-cancer). The current Cologuard screening interval is every 3 years. ([place] Cancer Society and U.S. Multi-Society Task Force). Cologuard performance data in a 10,000 patient pivotal study using colonoscopy as the reference method can be accessed at the following location: [email or web address]/results. Additional description of the Cologuard test process, warnings and precautions can be found at [email or web address]. Stool specimen (specimen) Rectal contents / Unknown 02/24/2024 9:00 AM EDT 02/26/2024 11:26 AM EDT Will Tim MD LAB MOLECULAR DIAGNOSTICS OR DERABLES Final Result .[facility] (CLIA #:[id number]) [address] [address], [facility] (CLIA #:[id number]) [address] [address] from Last 3 Months or Most Recently Relevant to Health Maintenance Insurance MEDICARE [facility] Remember The Member INS CO Advance Directives Documents on File Type Date Recorded Patient Director Of Analytical Development Expl anation Advance Directives and Living Will 11/29/2021 2019-04-01 Living Wi ll Advance Directives and Living Will 11/29/2021 2016-04-04 Power Of Regional Manager Care Teams Director Of Email Marketing Relationship Specialty Start Date End Date Will Tim MD [address] [place] [address] (Fax) PCP - ACO Reach 02/08/23 Will Tim MD [address] [place] [address] PCP - General Family Medicine 02/10/25 Jeet Aguirre MD [address] [facility] Professional building 1 [place] [address] Referring Physician Rheumatology 10/25/23 Osei Arevalo DPM [address] [place] [address] Referring Physician Podiatry 10/25/23 Fiona Ahumada LPN [address] [facility] [address] [place] [address] 03/30/25
--- OUTSIDE RECORDS SUMMARY | 2025-03-30 11:28 | XMS_ITS | Encounter Summary ---
Author Organization [facility] Address [address] [place] [address] Care Team Providers Care Translator And Interpreter Name Role Phone Will Alvarez MD Unavailable [phone] Slava Magana DO Unavailable [phone] Jeet Aguirre MD Unavailable [phone] Osei Arevalo DPM Unavailable [phone] Will Alvarez MD Primary Care Provider [phone] Fiona Ahumada LPN Unavailable Encounter Details Date Type Department Care Team (Late st Contact Info) Description 10/08/2023 Orders Only [facility] [address] [place] [address] Will Alvarez MD 112 [facility] [address] [place] [phone] Social History Tobacco Use Types Packs/Day Years [...] 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 Not on file documented as of this encounter Plan of Treatment Upcoming Encounters Date Type Department Care Team (Late st Contact Info) Description 05/19/2025 3:00 PM EDT Procedure Visit [facility] [address] [place] [address] Osei Arevalo DPM [address] [place], [place] [phone] documented as of this encounter Procedures Procedure Name Priority Date/Time Associated Diagnosis Comments ELECTROCARDIOGRAM REPORT Routine 024 9:07 AM EST documented in this encounter Results * Electrocardiogram Report (10/04/2023 9:07 AM EST) Will Alvarez MD IN CLINIC/BEDSIDE ORDERABLES Final Result documented in this encounter Visit Diagnoses Not on filedocumented in this encounter Care Teams Translator And Interpreter Relationship Specialty Start Date End Date Will Alvarez MD [address] [place] [address] PCP - ACO Reach 02/08/23 Will Alvarez MD [address] [place] [address] (Fax) PCP - General Family Medicine 02/10/25 Slava Magana DO [address] [place] [address] Referring Physician Orthopaedic Surgery 10/25/23 Jeet Aguirre MD [address] [facility] Professional building 1 [place] [address] Referring Physician Rheumatology 10/25/23 Osei Arevalo DPM [address] [place] [address] Referring Physician Podiatry 10/25/23 Fiona Ahumada LPN 112 [facility] 110 [place] [address] 03/30/25 documented as of this encounter
--- OUTSIDE RECORDS SUMMARY | 2025-03-30 11:28 | XMS_ITS | Encounter Summary ---
Author Organization [facility] Address [address] [place] [address] Care Team Providers Care Donkey Engine Firer/Fireman Name Role Phone Will Alvarez MD Unavailable Slava Magana DO Unavailable [phone] Jeet Aguirre MD Unavailable Osei Arevalo DPM Unavailable [phone] Will Alvarez MD Primary Care Provider Fiona Ahumada LPN Unavailable Encounter Details Date Type Department Care Team (Late st Contact Info) Description 09/26/2023 Orders Only [facility] [address] [place] [address] Jeet Aguirre MD [address] [facility] Professional building 1 [place] [address] Social History Tobacco Use Types [...] 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 Not on file documented as of this encounter Plan of Treatment Upcoming Encounters Date Type Department Care Team (Late st Contact Info) Description 05/19/2025 3:00 PM EDT Procedure Visit [facility] [address] [facility] [place] [address] Osei Arevalo, DPM [address] [place] [address] documented as of this encounter Procedures Procedure [...] on filedocumented in this encounter Care Teams Donkey Engine Firer/Fireman Relationship Specialty Start Date End Date Will Alvarez MD [address] [place] [address] (Fax) PCP - ACO Reach 02/08/23 Will Alvarez MD [address] [place] [address] (Fax) PCP - General Family Medicine 02/10/25 Slava Magana DO [address] [facility] 150 [place] [address] Referring Physician Orthopaedic Surgery 10/25/23 Jeet Aguirre MD [address] Professional building [address] [place] [address] Referring Physician Rheumatology 10/25/23 Osei Arevalo DPM [address] [place] [address] Referring Physician Podiatry 10/25/23 Fiona Ahumada LPN [address] [facility] 110 [place] [address] 03/30/25 documented as of this encounter
[2025-03-30 11:51] VITALS: BP 145/91; PULSE 86; TEMP 36.4; O2SAT 97
[2025-03-30] MEDS: IOHEXOL 240 MG/ML - 10 ML VIAL INJ (12:32)
[2025-03-30] MEDS: 0.9 % SODIUM CHLORIDE 10 ML SYRINGE - SALINE FLUSH INJ (12:32)
[2025-03-30] MEDS: DEXAMETHASONE SOD PHOS 10 MG/ML VIAL INJ (12:32)
[2025-03-30] MEDS: BUPIVACAINE HCL 0.25% PF 25 MG/10 ML VIAL INJ (12:32)
[2025-03-30] MEDS: LIDOCAINE HCL 2% 400 MG/20 ML MDV 5 ML INJ (12:32)
--- NOTE | 2025-03-30 12:35 | P.ON_ITS ---
Date of procedure: 03/30/25 Pre-op diagnosis: Pain due to lumbar stenosis with neurogenic claudication Post-op diagnosis: same as pre-op Procedure: Procedure: Right L3-4, L4-5 transforaminal epidural steroid injection Medications: Bupivacaine 0.25% 2cc, lidocaine 2% 1cc, dexamethasone 10mg The patient was seen and examined in the preoperative holding area.? Informed consent was obtained and placed on the chart.? Patient was brought to the medical procedure unit and placed in the prone position where a timeout was completed verifying the correct patient, procedure site, position, and planned special equipment using sterile aseptic technique.? Under direct fluoroscopic visualization a 25-gauge Quincke tipped spinal needle was advanced to the designated neural foramen where contrast dye was injected to show adequate spread.? The needle was inserted at level right L3-4. There was no evidence of vascular or adverse uptake.? Epidural spread was appreciated.? The above- mentioned injectate was then placed in a 1.5 mL aliquot preceded by negative aspiration.? The needle was removed. The needle was inserted and the procedure repeated at level right L4-5.? The surgery site was covered.? Patient was taken to the postprocedural recovery area and monitored for an appropriate length of time before found suitable for discharge in the accompaniment of a responsible adult. Anesthesia: Local Surgeon: Leonel Issa Pathology: none sent Condition: stable Disposition: no change
[2025-03-30 13:45] VITALS: BP 161/78; BP 163/77; PULSE 80; PULSE 83; O2SAT 96
== END 2025-03-30 12:41 | disposition home or self-care (01) ==
LOC: SURGOUT 11:25
PROVIDERS: PCP Family Medicine; Visit Provider Anesthesiology
DX: M48.062 Spinal stenosis, lumbar region with neurogenic claudication (principal); M54.50 Low back pain, unspecified; E11.8 Type 2 diabetes mellitus with unspecified complications; Z79.84 Long term (current) use of oral hypoglycemic drugs
CPT/HCPCS: 36415; 64483; 64484; 82948; J0665; J1100; Q9966

== ENCOUNTER 2025-04-16 13:35 | Outpatient (OUT) | payer MEDICARE, OTHER, SELFPAY ==
--- OUTSIDE RECORDS SUMMARY | 2025-04-16 13:37 | XMS_ITS | Encounter Summary ---
Author Organization [facility] Address [address] [place] [address] Care Team Providers Care Electoral Officer Name Role Phone Will Alvarez MD Unavailable [phone] Slava Magana DO Unavailable [phone] Jeet Aguirre MD Unavailable Osei Arevalo DPM Unavailable [phone] Will Alvarez MD Primary Care Provider [phone] Fiona Ahumada LPN Unavailable Encounter Details Date Type Department Care Team (Late st Contact Info) Description 12/11/2023 Orders Only [facility] [address] [place] [address] Slava Magana, [address] [place], [place] [id number] Social History Tobacco Use Types Packs/Day Years [...] Description 05/19/2025 3:00 PM EDT Procedure Visit [facility] [address] [place] [address] Osei Arevalo DPM [address] [place] [address] documented as of this encounter Procedures Procedure Name Priority Date/Time Associated Diagnosis Comments WOUND CULTURE Routine 12/11/2023 10:50 AM EDT documented in this encounter Results * WOUND CULTURE (12/11/2023 10:50 AM EDT) Slava Magana DO LAB BLOOD ORDERABLES Final Result documented in this encounter Visit Diagnoses Not on filedocumented in this encounter Care Teams Electoral Officer Relationship Specialty Start Date End Date Will Alvarez MD [address] [place] [address] PCP - ACO Reach 02/08/23 Will Alvarez MD [address] [place] [address] (Fax) PCP - General Family Medicine 02/10/25 Slava Magana DO [address] [place] [address] Referring Physician Orthopaedic Surgery 10/25/23 Jeet Aguirre MD [address] [facility] Professional building [address] [place] [phone] Referring Physician Rheumatology 10/25/23 Osei Arevalo DPM [address] [place] [address] Referring Physician Podiatry 10/25/23 Fiona Ahumada LPN 112 [facility] 110 [place] [address] 03/30/25 04/01/25 documented as of this encounter
--- OUTSIDE RECORDS SUMMARY | 2025-04-16 13:37 | XMS_ITS | Encounter Summary ---
Author Organization [facility] Address [address] [place] [address] Care Team Providers Care Studio Manager Name Role Phone Will Alvarez MD Unavailable [phone] Slava Magana DO Unavailable [phone] Jeet Aguirre MD Unavailable Osei Arevalo DPM Unavailable [phone] Will Alvarez MD Primary Care Provider [phone] Fiona Ahumada LPN Unavailable Reason for Visit * Reason Comments Med Refill Encounter Details Date Type Department Care Team (Late Contact Info) Description 04/16/2023 Refill [facility] [address] [place] [address] Linda Perez, BATT PACKER Presence of right artificial knee joint (Primary [...] 05/19/2025 3:00 PM EDT Procedure Visit [facility] [address] [place] [address] Osei Arevalo DPM [address] [place] [address] documented as of this encounter Visit Diagnoses Diagnosis Presence of right artificial knee joint- Primary documented in this encounter Care Teams Studio Manager Relationship Specialty Start Date End Date Will Alvarez MD [address] [place] [address] PCP - ACO Reach 02/08/23 Will Alvarez MD [address] [place] [address] PCP - General Family Medicine 02/10/25 Slava Magana DO [address] [place] [address] Referring Physician Orthopaedic Surgery 10/25/23 Jeet Aguirre MD [address] [facility] Professional building 1 [place] [address] Referring Physician Rheumatology 10/25/23 Osei Arevalo DPM [address] [place] [address] Referring Physician Podiatry 10/25/23 Fiona Ahumada LPN [address] [place] [address] 03/30/25 04/01/25 documented as of this encounter
--- OUTSIDE RECORDS SUMMARY | 2025-04-16 13:37 | XMS_ITS | Encounter Summary ---
Author Organization [facility] Address [address] [place] [address] Care Team Providers Care Turn Down Man Name Role Phone Will Alvarez MD Unavailable Slava Magana DO Unavailable [phone] Jeet Aguirre MD Unavailable Osei Arevalo DPM Unavailable [phone] Will Alvarez MD Primary Care Provider [phone] Fiona Ahumada LPN Unavailable Encounter Details Date Type Department Care Team (Late st Contact Info) Description 04/09/2023 Abstract [facility] [place] 521 Family Medicine [address] [place] [address] Will Alvarez MD 112 [facility] [address] [place], [place] [address] Social History Tobacco Use Types Packs/Day Years [...] 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 Not on file documented as of this encounter Plan of Treatment Upcoming Encounters Date Type Department Care Team (Late st Contact Info) Description 05/19/2025 3:00 PM EDT Procedure Visit [facility] [address] [place] [phone] Osei Arevalo DPM [address] [place] [address] documented as of this encounter Visit Diagnoses Not on filedocumented in this encounter Care Teams Turn Down Man Relationship Specialty Start Date End Date Will Alvarez MD [address] [place] [address] PCP - ACO Reach 02/08/23 Will Alvarez MD [address] [place] [address] PCP - General Family Medicine 02/10/25 Slava Magana DO [address] [place] [address] Referring Physician Orthopaedic Surgery 10/25/23 eJet Aguirre MD [address] [facility] Professional building 1 [place] [address] Referring Physician Rheumatology 10/25/23 Osei Arevalo DPM [address] [place] [address] Referring Physician Podiatry 10/25/23 Fiona Ahumada LPN [address] [place] [address] 03/30/25 04/01/25 documented as of this encounter
--- OUTSIDE RECORDS SUMMARY | 2025-04-16 13:37 | XMS_ITS | Encounter Summary ---
Author Organization [facility] Address [address] [place] [address] Care Team Providers Care Tipple Boss Name Role Phone Will Alvarez MD Unavailable Slava Magana DO Unavailable [phone] Jeet Aguirre MD Unavailable [phone] Osei Arevalo DPM Unavailable [phone] Will Alvarez MD Primary Care Provider [phone] Fiona Ahumada LPN Unavailable Encounter Details Date Type Department Care Team (Late st Contact Info) Description 01/07/2025 Orders Only [facility] [place] 100 Family Medicine 112 [facility] 100 [place] [address] Will Alvarez MD [address] [address] Social History Tobacco Use Types Packs/Day Years [...] 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 Not on file documented as of this encounter Plan of Treatment Upcoming Encounters Date Type Department Care Team (Late st Contact Info) Description 05/19/2025 3:00 PM EDT Procedure Visit [facility] [address] [place] [address] Osei Arevalo DPM [address] [place] [address] documented as of this encounter Visit Diagnoses Not on filedocumented in this encounter Additional Health Concerns Assessment Noted Time PHQ-9 Depression Total Score: 4 02/05/20 24 8:00 AM EDT documented as of this encounter Care Teams Tipple Boss Relationship Specialty Start Date End Date Will Alvarez MD [address] [place] [address] PCP - ACO Reach 02/08/23 Will Alvarez MD [address] [place] [address] PCP - General Family Medicine 02/10/25 Slava Magana DO [address] [place] [address] Referring Physician Orthopaedic Surgery 10/25/23 Jeet Aguirre MD [address] [facility] Professional building 1 [place] [address] Referring Physician Rheumatology 10/25/23 Osei Arevalo DPM [address] [place], [place] [address] Referring Physician Podiatry 10/25/23 Fiona Ahumada LPN 112 [facility] 110 [place] [address] 03/30/25 04/01/25 documented as of this encounter
--- OUTSIDE RECORDS SUMMARY | 2025-04-16 13:37 | XMS_ITS | Encounter Summary ---
Author Organization [facility] Address [address] [place] [address] Care Team Providers Care Collision Estimator Name Role Phone Will Alvarez MD Unavailable [phone] Slava Magana DO Unavailable [phone] Jeet Aguirre MD Unavailable [phone] Osei Arevalo DPM Unavailable [phone] Will Alvarez MD Primary Care Provider [phone] Fiona Ahumada LPN Unavailable Encounter Details Date Type Department Care Team (Late st Contact Info) Description 02/20/2023 Abstract [facility] [address] [place] [address] Osei Arevalo DPM [address] [place], [place] [phone] Social History Tobacco Use Types Packs/Day Years [...] 05/19/2025 3:00 PM EDT Procedure Visit [facility] [address] [place] [address] Osei Arevalo DPM [address] [place] [address] documented as of this encounter Visit Diagnoses Not on filedocumented in this encounter Care Teams Collision Estimator Relationship Specialty Start Date End Date Will Alvarez MD 112 [facility] 100 [place] [address] PCP - ACO Reach 02/08/23 Will Alvarez MD 112 [facility] 100 [place] [address] PCP - General Family Medicine 02/10/25 Slava Magana DO 112 [facility] 150 [place] [address] Referring Physician Orthopaedic Surgery 10/25/23 Jeet Aguirre MD [address] [facility] Professional building 1 [place] [address] Referring Physician Rheumatology 10/25/23 Osei Arevalo DPM [address] [place] [address] Referring Physician Podiatry 10/25/23 Fiona Ahumada LPN 112 [facility] 110 [place] [address] 03/30/25 04/01/25 documented as of this encounter
--- OUTSIDE RECORDS SUMMARY | 2025-04-16 13:37 | XMS_ITS | Encounter Summary ---
Author Organization [facility] Address [address] [place] [address] Care Team Providers Care Gridcap Machine Operator Name Role Phone Will Alvarez MD Unavailable [phone] Slava Magana DO Unavailable [phone] Jeet Aguirre MD Unavailable Osei Arevalo DPM Unavailable [phone] Will Alvarez MD Primary Care Provider [phone] Fiona Ahumada LPN Unavailable Encounter Details Date Type Department Care Team (Late st Contact Info) Description 04/03/2023 Abstract [facility] [place] 521 Family Medicine [address] [place] [address] Will Alvarez MD 112 [facility] [address] [place], [place] [address] Social History Tobacco Use Types Packs/Day Years [...] Procedure Visit [facility] [address] [facility] [place] [address] Osei Arevalo DPM [address] [place] [address] documented as of this encounter Visit Diagnoses Not on filedocumented in this encounter Care Teams Gridcap Machine Operator Relationship Specialty Start Date End Date Will Alvarez MD [address] [place] [address] PCP - ACO Reach 02/08/23 Will Alvarez MD [address] [place] [address] PCP - General Family Medicine 02/10/25 Slava Magana DO [address] [place] [address] Referring Physician Orthopaedic Surgery 10/25/23 Jeet Aguirre MD [address] [facility] Professional building 1 [place] [address] Referring Physician Rheumatology 10/25/23 Osei Arevalo DPM [address] [place] [address] Referring Physician Podiatry 10/25/23 Fiona Ahumada LPN [address] [place] [address] 03/30/25 04/01/25 documented as of this encounter
--- OUTSIDE RECORDS SUMMARY | 2025-04-16 13:38 | XMS_ITS | Encounter Summary ---
Author Organization [facility] Address [address] [place] [address] Care Team Providers Care Agricultural Consultant Name Role Phone Will Alvarez MD Unavailable [phone] Jeet Aguirre MD Unavailable [phone] Osei Arevalo DPM Unavailable Will Alvarez MD Primary Care Provider Fiona Ahumada LPN Unavailable Encounter Details Date Type Department Care Team (Late st Contact Info) Description 03/24/2025 Abstract [facility] [place] [address] Family Medicine 112 [facility] 100 [place] [address] Will Alvarez MD 112 [facility] 100 [place] [address] Social History Tobacco Use Types Packs/Day Years [...] 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 Not on file documented as of this encounter Plan of Treatment Upcoming Encounters Date Type Department Care Team (Late st Contact Info) Description 05/19/2025 3:00 PM EDT Procedure Visit [facility] [address] [place] [address] Osei Arevalo DPM [address] [place] [address] documented as of this encounter Visit Diagnoses Not on filedocumented in this encounter Additional Health Concerns Assessment Noted Time PHQ-9 Depression Total Score: 5 02/03/20 9:00 AM EDT documented as of this encounter Care Teams Agricultural Consultant Relationship Specialty Start Date End Date Will Alvarez MD [address] [place] [address] PCP - ACO Reach 02/08/23 Will Alvarez MD [address] [place] [address] PCP - General Family Medicine 02/10/25 Jeet Aguirre MD [address] Professional building 1 [place] [address] Referring Physician Rheumatology 10/25/23 Osei Arevalo DPM [address] [place] [address] Referring Physician Podiatry 10/25/23 Fiona Ahumada LPN [address] [place] [address] 03/30/25 04/01/25 documented as of this encounter
--- OUTSIDE RECORDS SUMMARY | 2025-04-16 13:38 | XMS_ITS | Encounter Summary ---
Author Organization [facility] Address [address] [place] [address] Care Team Providers Care Build And Release Manager Name Role Phone Will Alvarez MD Unavailable [phone] Slava Magana DO Unavailable [phone] Jeet Aguirre MD Unavailable [phone] Osei Arevalo DPM Unavailable [phone] Will Alvarez MD Primary Care Provider [phone] Fiona Ahumada LPN Unavailable Encounter Details Date Type Department Care Team (Late st Contact Info) Description 11/21/2023 Abstract [facility] [place] 521 Family Medicine [address] [place] [address] Will Alvarez MD [address] [place], [place] [address] Social History Tobacco Use Types Packs/Day Years [...] Procedure Visit [facility] [address] [place] [address] Osei Arevalo DPM [address] [address] documented as of this encounter Visit Diagnoses Not on filedocumented in this encounter Care Teams Build And Release Manager Relationship Specialty Start Date End Date Will Alvarez MD [address] [place] [address] PCP - ACO Reach 02/08/23 Will Alvarez MD [address] [place] [address] PCP - General Family Medicine 02/10/25 Slava Magana DO [address] [place] [address] Referring Physician Orthopaedic Surgery 10/25/23 Jeet Aguirre MD [address] [facility] Professional building 1 [place] [address] Referring Physician Rheumatology 10/25/23 Osei Arevalo DPM [address] [place] [address] Referring Physician Podiatry 10/25/23 Fiona Ahumada LPN [address] [place] [address] 03/30/25 04/01/25 documented as of this encounter
--- OUTSIDE RECORDS SUMMARY | 2025-04-16 13:38 | XMS_ITS | Encounter Summary ---
Author Organization [facility] Address [address] [place] [address] Care Team Providers Care Labor Specialist Name Role Phone Will Alvarez MD Unavailable Slava Magana DO Unavailable [phone] Jeet Aguirre MD Unavailable Osei Arevalo DPM Unavailable [phone] Will Alvarez MD Primary Care Provider [phone] Fiona Ahumada LPN Unavailable Encounter Details Date Type Department Care Team (Late st Contact Info) Description 12/06/2023 Orders Only [facility] [place] 521 Family Medicine [address] [place] [address] Will Alvarez MD 112 [facility] [address] [place], [place] [address] Social History Tobacco Use Types Packs/Day Years [...] Procedure Visit [facility] [address] [place] [address] Osei Arevalo DPM [address] [place] [address] documented as of this encounter Visit Diagnoses Not on filedocumented in this encounter Care Teams Labor Specialist Relationship Specialty Start Date End Date Will Alvarez MD [address] [place] [address] PCP - ACO Reach 02/08/23 Will Alvarez MD [address] [place] [address] PCP - General Family Medicine 02/10/25 Slava Magana DO [address] [place] [address] Referring Physician Orthopaedic Surgery 10/25/23 Jeet Aguirre MD [address] [facility] Professional building 1 [place] [address] Referring Physician Rheumatology 10/25/23 Osei Arevalo DPM [address] [place] [address] Referring Physician Podiatry 10/25/23 Fiona Ahumada LPN [address] [place] [address] 03/30/25 04/01/25 documented as of this encounter
--- OUTSIDE RECORDS SUMMARY | 2025-04-16 13:38 | XMS_ITS | Clinical Summary ---
Author Organization [facility] Address [address] [place] [address] Phone Care Team Providers Care Adult Basic Education Instructor Name Role Phone Unavailable Primary Care Provider [...]
--- OUTSIDE RECORDS SUMMARY | 2025-04-16 13:38 | XMS_ITS | Clinical Summary ---
Author Organization [facility] tem Address [id number] [address] [place] [address] Care Team Providers Care Account Support Specialist Name Role Phone Will Alvarez MD Primary Care Provider [phone] Allergies Active Allergy Reactions Criticality Noted Date Comments Levofloxacin Rash Low 05/02/2023 Hydroxychloroquine Rash Low 10/20/2020 Medications methotrexate 2.5 mg chemo tabletIndications :rheumatoid arthritis Take 1 tablet by mouth once a week 8 tabs every Sunday Indications: rheumatoid arthritis Active uvteaxqu-jcsj-IZ- calcium &mins (THERAGRAN-M) 9 mg iron-400 mcg [...] Recorded Do you need help finding a [employer] career center and/or a training program? No [...] Left [employer] Implanted Type Area [place] Mason Device Identifier Shelf Expiration Date Model / Serial / Lot Bearing Hum 36mm Cmprh Std Shldr Prlng Rvrs - [id number] Implanted:Qty : 1 on 05/16/2023 by Joshua Rincon MD at [facility] Bearing Left: Shoulder [employer] [id number] 11/26/2027 [id number] / / [id number] Cmnt Bn Bio 40gm Rpl [id number] +[id number] - Sna - [id number] Implanted:Qty : 2 on 11/10/2020 by Slava Magana DO at [facility] Cement Right: Knee [employer] 09/16/2024 [id number] / NA / [id number] Cmpt Fem 5 Kn Rt Crcte Rtn - Sna - [id number] Implanted:Qty : 1 on 11/10/2020 by Slava Magana DO at [facility] Orthopedic Implant Right: Knee [employer] 12/15/2028 [id number] / NA / [id number] Cmpt Ptlr 35mm Medialized Dome - Sna - [id number] Implanted:Qty : 1 on 11/10/2020 by Slava Magana DO at [facility] Orthopedic Implant Right: Knee [employer] 06/16/2025 [id number] / NA / [id number] Ins Tib 5 5mm Cr Fx Brng - Sna - [id number] Implanted:Qty : 1 on 11/10/2020 by Slava Magana DO at [facility] Orthopedic Implant Right: Knee ORTHOPAEDICS 07/17/2025 [id number] / NA / [id number] Impl Kn Fx Brng W Spcl Ins Construct Rpl [id number] - Sna - [id number] Implanted:Qty : 1 on 11/10/2020 by Slava Magana DO at [facility] Orthopedic Implant Right: Knee ORTHOPAEDICS [id number] / NA / NA Baseplate Krishna Cmprh Sm Shldr Aug Tpr Adpr - [id number] Implanted:Qty : 1 on 05/16/2023 by Joshua Rincon MD at [facility] Orthopedic Implant Left: Shoulder [employer] [id number] 04/26/2028 [id number] / / [id number] Component Krishna 36mm Std Glenosphere Clr Cd Cmprh Versa-Dial - [id number] Implanted:Qty : 1 on 05/16/2023 by Joshua Rincon MD at [facility] Orthopedic Implant Left: Shoulder [employer] [id number] 10/18/2032 [id number] / / [id number] Stem Hum 55mm 11mm Cmprh Por Mt Shldr Rvrs Sys - [id number] Implanted:Qty : 1 on 05/16/2023 by Joshua Rincon MD at [facility] Orthopedic Implant Left: Shoulder [employer] 01/09/2033 [id number] / / [id number] Tray Hum Cmprh Std Shldr Rvrs - [id number] Implanted:Qty : 1 on 05/16/2023 by Joshua Rincon MD at [facility] Orthopedic Implant Left: Shoulder [employer] [id number] 04/09/2033 [id number] / / [id number] Bsplt Tib 5 Kn Cmnt Fx Brng - Sna - [id number] Implanted:Qty : 1 on 11/10/2020 by Slava Magana DO at [facility] Plate Right: Knee [employer] 06/16/2030 [id number] / NA / [id number] Screw Bn 30mm 6.5mm Cntr Hx Hd Ti Cmprh 3.5mm Strl Rvrs - [id number] Implanted:Qty : 1 on 05/16/2023 by Joshua Rincon MD at [facility] Screw Left: Shoulder [employer] 11/09/2032 [id number] / / [id number] Screw Bn 20mm 4.75mm Lck Fx Ang Hx Hd Ti Cmprh 3.5mm Strl - [id number] Implanted:Qty : 1 on 05/16/2023 by Joshua Rincon MD at [facility] Screw Left: Shoulder [employer] [id number] 02/01/2033 [id number] / / [id number] Screw Bn 15mm 4.75mm Lck Fx Ang Hx Hd Ti Cmprh 3.5mm Strl - [id number] Implanted:Qty : 1 on 05/16/2023 by Joshua Rincon MD at [facility] Screw Left: Shoulder [employer] [id number] 04/01/2033 [id number] / / [id number] Screw Bn 15mm 4.75mm Lck Fx Ang Hx Hd Ti Cmprh 3.5mm Strl - [id number] Implanted:Qty : 1 on 05/16/2023 by Joshua Rincon MD at [facility] Screw Left: Shoulder [employer] [id number] 04/01/2033 [id number] / / [id number] Screw Bn 20mm 4.75mm Va Hx Hd Ti Cmprh 3.5mm Strl Rvrs Shldr - [id number] Implanted:Qty : 1 on 05/16/2023 by Joshua R[facility]con MD at [facility] Screw Left: Shoulder [employer] [id number] 01/05/2032 [id number] / / [id number] Insurance MEDICARE COMMERCIAL Advance Directives Documents on File Type Date Recorded Patient Skiver Machine Expl anation Durable Power of Senior Procurement Specialist 05/02/2023 12:37 PM POA * Full Code (Latest Code Status on File) Date Activated Date Inactivated Comments 05/16/2023 10:16 AM 05/16/2023 5:16 PM * Full Code Date Activated Date Inactivated Comments 11/10/2020 11:25 AM 11/11/2020 7:52 PM Care Teams Account Support Specialist Relationship Specialty Start Date End Date Will Alvarez MD PCP - General Family Medicine 10/20/20
--- OUTSIDE RECORDS SUMMARY | 2025-04-16 13:38 | XMS_ITS | Encounter Summary ---
Author Organization [facility] Address [address] [place] [address] Care Team Providers Care Longitudinal Float Operator Name Role Phone Will Alvarez MD Unavailable Slava Magana DO Unavailable [phone] Jeet Aguirre MD Unavailable Osei Arevalo DPM Unavailable [phone] Will Alvarez MD Primary Care Provider [phone] Fiona Ahumada LPN Unavailable Encounter Details Date Type Department Care Team (Late st Contact Info) Description 10/08/2023 Orders Only [facility] [place] 521 Family Medicine [address] [place] [address] Will Alvarez MD [address] [facility] [address] [place], [place] [id number] Social History Tobacco Use Types Packs/Day Years [...] 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 Not on file documented as of this encounter Plan of Treatment Upcoming Encounters Date Type Department Care Team (Late st Contact Info) Description 05/19/2025 3:00 PM EDT Procedure Visit [facility] [address] [place] [address] Osei Arevalo, DPM [address] [place], [place] [address] documented as of this encounter Procedures Procedure Name Priority Date/Time Associated Diagnosis Comments ELECTROCARDIOGRAM REPORT Routine 024 9:07 AM EST documented in this encounter Results * Electrocardiogram Report (10/04/2023 9:07 AM EST) Will Alvarez MD IN CLINIC/BEDSIDE ORDERABLES Final Result documented in this encounter Visit Diagnoses Not on filedocumented in this encounter Care Teams Longitudinal Float Operator Relationship Specialty Start Date End Date Will Alvarez MD [address] [place] [address] PCP - ACO Reach 02/08/23 Will Alvarez MD [address] [place] [address] (Fax) PCP - General Family Medicine 02/10/25 Slava Magana DO [address] [place] [address] Referring Physician Orthopaedic Surgery 10/25/23 Jeet Aguirre MD [address] Professional [address] 1 [place] [address] Referring Physician Rheumatology 10/25/23 Osei Arevalo DPM [address] [facility] [place] [address] Referring Physician Podiatry 10/25/23 Fiona Ahumada LPN [address] [facility] 110 [place] [address] 03/30/25 04/01/25 documented as of this encounter
--- OUTSIDE RECORDS SUMMARY | 2025-04-16 13:38 | XMS_ITS | Encounter Summary ---
Author Organization [facility] s tem Address [id number] [address] [place] [address] Care Team Providers Care Coding Director Name Role Phone Will Alvarez MD Primary Care Provider + [phone] Encounter Details Date Type Department Care Team (Late st Contact Info) Description 01/29/2023 Orders Only [facility] [address] [place] [address] Susan Ramirez, JEAN-CLAUDE Left rotator cuff tear [...] Recorded Do you need help finding a [facility] career center and/or a training program? No [...] documented as of this encounter Care Teams Coding Director Relationship Specialty Start Date End Date Will Alvarez MD PCP - General Family Medicine 10/20/20 documented as of this encounter
--- OUTSIDE RECORDS SUMMARY | 2025-04-16 13:38 | XMS_ITS | Encounter Summary ---
Author Organization [facility] Address [address] [place] [address] Care Team Providers Care Chimney Builder Name Role Phone Will Alvarez MD Unavailable [phone] Slava Magana DO Unavailable [phone] Jeet Aguirre MD Unavailable [phone] Osei Arevalo DPM Unavailable Will Alvarez MD Primary Care Provider Fiona Ahumada LPN Unavailable Encounter Details Date Type Department Care Team (Late st Contact Info) Description 10/30/2023 Abstract [facility] [place] 521 Family Medicine [address] [facility] [place] [address] Slava Magana, DO 112 [facility] 150 [place], [place] [id number] Social History Tobacco Use Types Packs/Day Years [...] Procedure Visit [facility] [address] [place] [address] Osei Arevalo DPM [address] [place] [address] documented as of this encounter Visit Diagnoses Not on filedocumented in this encounter Care Teams Chimney Builder Relationship Specialty Start Date End Date Will Alvarez MD [address] [place] [address] PCP - ACO Reach 02/08/23 Will Alvarez MD [address] [place] [address] PCP - General Family Medicine 02/10/25 Slava Magana DO [address] [place] [address] Referring Physician Orthopaedic Surgery 10/25/23 Jeet Aguirre MD [address] [facility] Professional building 1 [place] [address] Referring Physician Rheumatology 10/25/23 Osei Arevalo DPM [address] [place] [address] Referring Physician Podiatry 10/25/23 Fiona Ahumada LPN [address] [place] [address] 03/30/25 04/01/25 documented as of this encounter
--- OUTSIDE RECORDS SUMMARY | 2025-04-16 13:38 | XMS_ITS | Encounter Summary ---
Author Organization [facility] Address [address] [place] [address] Care Team Providers Care Outboard Technician Name Role Phone Will Alvarez MD Unavailable Slava Magana DO Unavailable [phone] Jeet Aguirre MD Unavailable Osei Arevalo DPM Unavailable [phone] Will Alvarez MD Primary Care Provider Fiona Ahumada LPN Unavailable Encounter Details Date Type Department Care Team (Late st Contact Info) Description 08/19/2024 Orders Only [facility] [place] 100 Family Medicine [address] [address] Angie Early, OD [address] [place] [address] Social History Tobacco Use Types Packs/Day Years [...] EDT Procedure Visit [facility] [address] [place] [address] Osei Arevalo DPM [address] [place] [address] documented as of this encounter Procedures Procedure Name Priority Date/Time Associated Diagnosis Comments DIABETIC RETINOPATHY SCREENING - OU - BOTH EYES Routine 07/18/2024 10:02 AM EDT documented in this encounter Results * Diabetic Retinopathy Screening - OU - Both Eyes (07/18/2024 10:02 AM EDT) Anatomical Region Laterality Modality Head Other Angie Alonso OD OPHTH PHOTOGRAPHY Final Result documented in this encounter Visit Diagnoses Not on filedocumented in this encounter Additional Health Concerns Assessment Noted Time PHQ-9 Depression Total Score: 4 02/05/20 24 8:00 AM EDT documented as of this encounter Care Teams Outboard Technician Relationship Specialty Start Date End Date Will Alvarez MD [address] [facility] [address] [place] [address] PCP - ACO Reach 02/08/23 Will Alvarez MD [address] [place] [address] PCP - General Family Medicine 02/10/25 Slava Magana DO [address] [place] [address] Referring Physician Orthopaedic Surgery 10/25/23 Jeet Aguirre MD [address] Professional building 1 [place] [address] Referring Physician Rheumatology 10/25/23 Osei Arevalo DPM [address] [place] [address] Referring Physician Podiatry 10/25/23 Fiona Ahumada LPN 112 [facility] 110 [place] [address] 03/30/25 04/01/25 documented as of this encounter
--- OUTSIDE RECORDS SUMMARY | 2025-04-16 13:38 | XMS_ITS | Encounter Summary ---
Author Organization [facility] Address [address] [place] [address] Care Team Providers Care Livestock Nutrition Territory Manager Name Role Phone Will Alvarez MD Unavailable [phone] Slava Magana DO Unavailable [phone] Jeet Aguirre MD Unavailable [phone] Osei Arevalo DPM Unavailable [phone] Will Alvarez MD Primary Care Provider Fiona Ahumada LPN Unavailable Encounter Details Date Type Department Care Team (Late st Contact Info) Description 09/26/2023 Orders Only [facility] [place] 521 Family Medicine [address] [place] [address] Jeet Aguirre MD [address] Professional building 1 [place] [address] Social History Tobacco Use Types [...] 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 Not on file documented as of this encounter Plan of Treatment Upcoming Encounters Date Type Department Care Team (Late st Contact Info) Description 05/19/2025 3:00 PM EDT Procedure Visit [facility] [place] [facility] [address] [place] [address] Osei Arevalo, DPKaleigh [address] [place] [address] documented as of this encounter Procedures Procedure [...] on filedocumented in this encounter Care Teams Livestock Nutrition Territory Manager Relationship Specialty Start Date End Date Will Alvarez MD [address] [place] [address] (Fax) PCP - ACO Reach 02/08/23 Will Alvarez MD [address] [place] [address] (Fax) PCP - General Family Medicine 02/10/25 Slava Magana DO [address] [facility] 150 [place] [address] Referring Physician Orthopaedic Surgery 10/25/23 Jeet Aguirre MD [address] [place] [address] Referring Physician Rheumatology 10/25/23 Osei Arevalo DPM [address] [place] [address] Referring Physician Podiatry 10/25/23 Fiona Ahumada LPN 112 [facility] 110 [place] [address] 03/30/25 04/01/25 documented as of this encounter
--- OUTSIDE RECORDS SUMMARY | 2025-04-16 13:38 | XMS_ITS | Encounter Summary ---
Author Organization [facility] Address [address] [place] [address] Care Team Providers Care Busboy Name Role Phone Will Alvarez MD Unavailable Slava Magana DO Unavailable [phone] Jeet Aguirre MD Unavailable [phone] Osei Arevalo DPM Unavailable Will Alvarez MD Primary Care Provider Fiona Ahumada LPN Unavailable Encounter Details Date Type Department Care Team (Late st Contact Info) Description 10/30/2023 Abstract [facility] [place] 521 Family Medicine [address] [facility] [place] [address] Slava Magana, DO 112 [facility] 150 [place], [place] [address] Social History Tobacco Use Types Packs/Day Years [...] Procedure Visit [facility] [address] [place] [address] Osei Arevalo DPM [address] [place] [address] documented as of this encounter Visit Diagnoses Not on filedocumented in this encounter Care Teams Busboy Relationship Specialty Start Date End Date Will Alvarez MD [address] [place] [address] PCP - ACO Reach 02/08/23 Will Alvarez MD [address] [place] [address] PCP - General Family Medicine 02/10/25 Slava Magana DO [address] [place] [address] Referring Physician Orthopaedic Surgery 10/25/23 Jeet Aguirre MD [address] [facility] Professional building 1 [place] [address] Referring Physician Rheumatology 10/25/23 Osei Arevalo DPM [address] [place] [address] Referring Physician Podiatry 10/25/23 Fiona Ahumada LPN [address] [place] [address] 03/30/25 04/01/25 documented as of this encounter
--- OUTSIDE RECORDS SUMMARY | 2025-04-16 13:38 | XMS_ITS | Encounter Summary ---
Author Organization [facility] Address [address] [place] [address] Care Team Providers Care Economic Adviser Name Role Phone Will Alvarez MD Unavailable Slava Magana DO Unavailable [phone] Jeet Aguirre MD Unavailable [phone] Osei Arevalo DPM Unavailable [phone] Will Alvarez MD Primary Care Provider Fiona Ahumada LPN Unavailable Encounter Details Date Type Department Care Team (Late st Contact Info) Description 08/28/2023 Orders Only [facility] [place] 521 Family Medicine [address] [place] [address] Jeet Aguirre MD [address] Professional building 1 [place] [address] Social History Tobacco Use Types [...] 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 Not on file documented as of this encounter Plan of Treatment Upcoming Encounters Date Type Department Care Team (Late st Contact Info) Description 05/19/2025 3:00 PM EDT Procedure Visit [facility] [address] [place] [address] Osei Arevalo DPM [address] [place] [address] documented as of this encounter Procedures Procedure [...] on filedocumented in this encounter Care Teams Economic Adviser Relationship Specialty Start Date End Date Will Alvarez MD 112 [facility] 100 [place] [address] PCP - ACO Reach 02/08/23 Will Alvarez MD [address] [facility] 100 [place] [address] PCP - General Family Medicine 02/10/25 Slava Magana DO [address] [facility] 150 [place] [address] Referring Physician Orthopaedic Surgery 10/25/23 Jeet [facility]irre MD [facility] [address] [facility] 1 [place] [address] Referring Physician Rheumatology 10/25/23 Osei Arevalo DPM [address] [place] [address] Referring Physician Podiatry 10/25/23 Fiona Ahumada LPN [address] [place] [address] 03/30/25 04/01/25 documented as of this encounter
--- OUTSIDE RECORDS SUMMARY | 2025-04-16 13:39 | XMS_ITS | Encounter Summary ---
Author Organization [facility] Address [address] [place] [address] Care Team Providers Care Bee Robber Name Role Phone Will Alvarez MD Unavailable Slava Magana DO Unavailable [phone] Jeet Aguirre MD Unavailable Osei Arevalo DPM Unavailable [phone] Will Alvarez MD Primary Care Provider [phone] Fiona Ahumada LPN Unavailable Encounter Details Date Type Department Care Team (Late st Contact Info) Description 05/11/2023 Orders Only [facility] [place] 521 Family Medicine [address] [place] [address] iWll Alvarez MD 112 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 Not on file documented as of this encounter Plan of Treatment Upcoming Encounters Date Type Department Care Team (Late st Contact Info) Description 05/19/2025 3:00 PM EDT Procedure Visit [facility] [address] [facility] [address] Osei Arevalo DPKaleigh [address] [place] [address] documented as of this encounter Procedures Procedure [...] on filedocumented in this encounter Care Teams Bee Robber Relationship Specialty Start Date End Date Will Alvarez MD [address] [place] [address] PCP - ACO Reach 02/08/23 Will Alvarez MD [address] [place] [address] PCP - General Family Medicine 02/10/25 Slava Magana DO [address] [place] [address] Referring Physician Orthopaedic Surgery 10/25/23 Jeet Aguirre MD [address] [facility] Professional building [address] [place] [phone] Referring Physician Rheumatology 10/25/23 Osei Arevalo DPM [address] [place] [address] Referring Physician Podiatry 10/25/23 Fiona Ahumada LPN [address] [place] [address] 03/30/25 04/01/25 documented as of this encounter
--- OUTSIDE RECORDS SUMMARY | 2025-04-16 13:39 | XMS_ITS | Encounter Summary ---
Author Organization [facility] Address [address] [place] [address] Care Team Providers Care Injection Molding Supervisor Name Role Phone Will Alvarez MD Unavailable Jeet Aguirre MD Unavailable Osei Arevalo DPM Unavailable [phone] Will Alvarez MD Primary Care Provider Fiona Ahumada LPN Unavailable Encounter Details Date Type Department Care Team (Late st Contact Info) Description 03/16/2025 Abstract [facility] [place] [address] Family Medicine 112 [facility] 100 [place] [address] Will Alvarez MD 112 [facility] 100 [place] [address] Social History Tobacco Use Types Packs/Day Years [...] 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 Not on file documented as of this encounter Plan of Treatment Upcoming Encounters Date Type Department Care Team (Late st Contact Info) Description 05/19/2025 3:00 PM EDT Procedure Visit [facility] [facility] [address] [place] [address] Osei Arevalo DPM [address] [place] [address] documented as of this encounter Visit Diagnoses Not on filedocumented in this encounter Additional Health Concerns Assessment Noted Time PHQ-9 Depression Total Score: 5 02/03/20 9:00 AM EDT documented as of this encounter Care Teams Injection Molding Supervisor Relationship Specialty Start Date End Date Will Alvarez MD [address] [place] [address] PCP - ACO Reach 02/08/23 Will Alvarez MD [address] [place] [address] PCP - General Family Medicine 02/10/25 Jeet Aguirre MD [address] 1 [place] [address] Referring Physician Rheumatology 10/25/23 Osei Arevalo DPM [address] [place] [address] Referring Physician Podiatry 10/25/23 Fiona Ahumada LPN [address] [place] [address] 03/30/25 04/01/25 documented as of this encounter
--- OUTSIDE RECORDS SUMMARY | 2025-04-16 13:39 | XMS_ITS | Encounter Summary ---
Author Organization [facility] Address [address] [place] [address] Care Team Providers Care Satellite Tv Technician Name Role Phone Will Alavrez MD Unavailable Slava Magana DO Unavailable [phone] Jeet Aguirre MD Unavailable Osei Arevalo DPM Unavailable [phone] Will Alvarez MD Primary Care Provider [phone] Fiona Ahumada LPN Unavailable Encounter Details Date Type Department Care Team (Late st Contact Info) Description 05/07/2023 Abstract [facility] [place] 521 Family Medicine [address] [place] [address] Will Alvarez MD 112 [facility] [address] [place], [place] [address] Social History Tobacco Use Types Packs/Day Years [...] 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 Not on file documented as of this encounter Plan of Treatment Upcoming Encounters Date Type Department Care Team (Late st Contact Info) Description 05/19/2025 3:00 PM EDT Procedure Visit [facility] [address] [address] Osei Arevalo DPM [address] [place] [address] documented as of this encounter Visit Diagnoses Not on filedocumented in this encounter Care Teams Satellite Tv Technician Relationship Specialty Start Date End Date Will lAvarez MD [address] [place] [address] PCP - ACO Reach 02/08/23 Will Alvarez MD [address] [place] [address] PCP - General Family Medicine 02/10/25 Slava Magana DO [address] 150 [place] [address] Referring Physician Orthopaedic Surgery 10/25/23 Jeet Aguirre MD [address] [facility] Professional building 1 [place] [address] Referring Physician Rheumatology 10/25/23 Osei Arevalo DPM [address] [place] [address] Referring Physician Podiatry 10/25/23 Fiona Ahumada LPN [address] [place] [address] 03/30/25 04/01/25 documented as of this encounter
--- OUTSIDE RECORDS SUMMARY | 2025-04-16 13:39 | XMS_ITS | Encounter Summary ---
Author Organization [facility] Address [address] [place] [address] Care Team Providers Care Supervisor Continuous Weld Pipe Mill Name Role Phone Will Alvarez MD Unavailable [phone] Slava Magana DO Unavailable [phone] Jeet Aguirre MD Unavailable Osei Arevalo DPM Unavailable [phone] Will Alvarez MD Primary Care Provider Fiona Ahumada LPN Unavailable Reason for Visit * Reason Comments Med Refill Encounter Details Date Type Department Care Team (Late Contact Info) Description 05/01/2024 Refill [facility] [address] 150 [place] [address] Linda Perez NP Social History Tobacco Use [...] 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 Not on file documented as of this encounter Plan of Treatment Upcoming Encounters Date Type Department Care Team (Late st Contact Info) Description 05/19/2025 3:00 PM EDT Procedure Visit [facility] [address] [place] [address] Osei Arevalo DPM [address] [place] [address] documented as of this encounter Visit Diagnoses Not on filedocumented in this encounter Additional Health Concerns Assessment Noted Time PHQ-9 Depression Total Score: 4 02/05/20 24 8:00 AM EDT documented as of this encounter Care Teams Supervisor Continuous Weld Pipe Mill Relationship Specialty Start Date End Date Will Alvarez MD [address] [place] [address] PCP - ACO Reach 02/08/23 Will Alvarez MD [address] [place] [address] PCP - General Family Medicine 02/10/25 Slava Magana DO [address] [place] [address] Referring Physician Orthopaedic Surgery 10/25/23 Jeet Aguirre MD [address] [facility] Professional building 1 [place] [address] Referring Physician Rheumatology 10/25/23 Osei Arevalo DPM [address] [place] [address] Referring Physician Podiatry 10/25/23 Fiona Ahumada LPN [address] [place] [address] 03/30/25 04/01/25 documented as of this encounter
--- OUTSIDE RECORDS SUMMARY | 2025-04-16 13:39 | XMS_ITS | Encounter Summary ---
Author Organization [facility] Address [address] [place] [address] Care Team Providers Care Regulator Assembler Name Role Phone Will Alvarez MD Unavailable Slava Magana DO Unavailable [phone] Jeet Aguirre MD Unavailable Osei Arevalo DPM Unavailable [phone] Will Alvarez MD Primary Care Provider [phone] Fiona Ahumada LPN Unavailable Encounter Details Date Type Department Care Team (Late st Contact Info) Description 07/09/2024 Orders Only [facility] [place] 100 Family Medicine 112 [facility] 100 [place] [address] Will Alvarez MD [address] [address] Social History Tobacco Use Types Packs/Day Years [...] 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 file documented as of this encounter Plan of Treatment Upcoming Encounters Date Type Department Care Team (Late st Contact Info) Description 05/19/2025 3:00 PM EDT Procedure Visit [facility] [address] [place] [address] Osei Arevalo DPM [address] [place] [address] documented as of this encounter Procedures Procedure [...] documented as of this encounter Care Teams Regulator Assembler Relationship Specialty Start Date End Date Will Alvarez MD 112 [facility] 100 [place] [address] PCP - ACO Reach 02/08/23 Will Alvarez MD 112 [facility] 100 [place] [address] PCP - General Family Medicine 02/10/25 Slava Magana DO 112 [facility] [address] 150 [place] [address] Referring Physician Orthopaedic Surgery 10/25/23 Jeet Aguirre MD [address] [facility] Professional building 1 [place] [address] Referring Physician Rheumatology 10/25/23 Osei Arevalo DPM [address] [place], [place] [address] Referring Physician Podiatry 10/25/23 Fiona Ahumada LPN 112 [facility] 110 [place], [place] [address] 03/30/25 04/01/25 documented as of this encounter
--- OUTSIDE RECORDS SUMMARY | 2025-04-16 13:39 | XMS_ITS | Encounter Summary ---
Author Organization [facility] Address [address] [facility] [place] [address] Care Team Providers Care Radiation Safety Officer Name Role Phone Will Alvarez MD Unavailable Slava Magana DO Unavailable [phone] Jeet Aguirre MD Unavailable Osei Arevalo DPM Unavailable Will Alvarez MD Primary Care Provider Fiona Ahumada LPN Unavailable Encounter Details Date Type Department Care Team (Late st Contact Info) Description 08/07/2023 Abstract [facility] [place] [facility] Family Medicine [address] [facility] [place] [address] Joshua Rincon MD [address] [place] [address] Social History Tobacco Use Types [...] 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 Not on file documented as of this encounter Plan of Treatment Upcoming Encounters Date Type Department Care Team (Late st Contact Info) Description 05/19/2025 3:00 PM EDT Procedure Visit [facility] [address] [place] [address] Osei Arevalo DPM [address] [place] [address] documented as of this encounter Visit Diagnoses Not on filedocumented in this encounter Care Teams Radiation Safety Officer Relationship Specialty Start Date End Date Will Alvarez MD [address] [place] [address] PCP - ACO Reach 02/08/23 Will Alvarez MD [address] [place] [address] PCP - General Family Medicine 02/10/25 Slava Magana DO [address] [place] [address] Referring Physician Orthopaedic Surgery 10/25/23 Jeet Aguirre MD [address] [facility] Professional building 1 [place] [address] Referring Physician Rheumatology 10/25/23 Osei Arevalo DPM [address] [place] [address] Referring Physician Podiatry 10/25/23 Fiona Ahumada LPN [address] [place] [address] 03/30/25 04/01/25 documented as of this encounter
--- OUTSIDE RECORDS SUMMARY | 2025-04-16 13:39 | XMS_ITS | Encounter Summary ---
Author Organization [facility] Address [address] [place] [address] Care Team Providers Care Drafter (Cad) Electronic Name Role Phone Will Alvarez MD Unavailable Jeet Aguirre MD Unavailable Osei Arevalo DPM Unavailable Will Alvarez MD Primary Care Provider [phone] Fiona Ahumada LPN Unavailable Encounter Details Date Type Department Care Team ([facility] Contact Info) Description 02/18/2025 Orders Only [facility] [place] [address] Family Medicine [address] [place] [phone] [place], [place], [place] Social History Tobacco Use Types Packs/Day Years [...] 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 Not on file documented as of this encounter Plan of Treatment Upcoming Encounters Date Type Department Care Team (Late st Contact Info) Description 05/19/2025 3:00 PM EDT Procedure Visit [facility] [address] [place] [address] Osei Arevalo DPM [address] [place], [place] [address] documented as of this encounter Visit Diagnoses Not on filedocumented in this encounter Additional Health Concerns Assessment Noted Time PHQ-9 Depression Total Score: 5 02/03/20 25 9:00 AM EDT documented as of this encounter Care Teams Drafter (Cad) Electronic Relationship Specialty Start Date End Date Will Alvarez MD [address] [place] [address] PCP - ACO Reach 02/08/23 Will Alvarez MD [address] [place] [address] PCP - General Family Medicine 02/10/25 Jeet Aguirre MD [address] [facility] Professional building 1 [place] [address] Referring Physician Rheumatology 10/25/23 Osei Arevalo DPM [address] [place] [address] Referring Physician Podiatry 10/25/23 Fiona Ahumada LPN [address] [place] [address] 03/30/25 04/01/25 documented as of this encounter
--- OUTSIDE RECORDS SUMMARY | 2025-04-16 13:39 | XMS_ITS | Clinical Summary ---
Author Organization [facility] Address [address] [place] [address] Care Team Providers Care Scalper Operator Name Role Phone Will Tim MD Unavailable [phone] Jeet Aguirre MD Unavailable Osei Arevalo DPM Unavailable Will Tim MD Primary Care Provider Allergies [...] Encounters Date Type Department Care Team Description 04/01/2025 Patient Outreach [facility] [address] [place] [address] Fiona AhumadaHAYDEN 03/24/2025 Abstract [facility] [place] Family Medicine 112 [facility] 100 [place] [address] Will Tim MD 03/23/2025 Telephone [facility] [place] Family Medicine 112 [facility] 100 [place] [address] Will Tim MD Care Coordination 03/18/2025 2:00 PM EDT Office Visit [facility] Family Medicine 112 [facility] 100 [place] [address] Will Tim MD Recurrent major depressive disorder, in partial remission (Primary Dx); Osteopenia, unspecified location; Impaired glucose tolerance test 03/18/2025 Bamboo flowsheet [facility] [place] Family Medicine 112 [facility] 100 [place] [address] Will Tim MD 03/18/2025 Travel 03/16/2025 Abstract [facility] [place] [facility] Family Medicine 112 [facility] 100 [place] [address] Will Tim MD 03/03/2025 Telephone [facility] [place] Family Medicine 112 [facility] 100 [place] [address] Jessie Rosen RN Results 02/27/2025 Clinisync Result Encounter [facility] External Department Unsolicited Provider, Generic External Data 02/27/2025 Clinisync Result Encounter [facility] External Department Unsolicited Will Tim MD 02/18/2025 Orders Only [facility] [place] 100 Family Medicine 112 [facility] 100 [place] [address] Cosme December,02/18/2025 Orders Only [facility] [place] Family Medicine 112 [facility] 100 [place] [address] Cosme December, Recurrent major depressive disorder, in partial remission 02/15/2025 Orders Only [facility] [place] [address] [place] [address] Will Tim MD 02/11/2025 2:30 PM EDT Procedure Visit [facility] [address] [place] [address] Osei Arevalo, AUDRA Onychomycosis (Primary Dx); Onychodystrophy; Diabetic polyneuropathy associated with type 2 diabetes mellitus (HCC) 02/11/2025 [facility] [address] [place] [address] Osei Arevalo DPM 02/11/2025 Travel 02/10/2025 Travel 02/02/2025 9:00 AM EDT Office Visit [address] [address] Will Tim MD Encounter for Medicare annual [...] smoker; Cardiovascular event risk 02/02/2025 Bamboo [address]sheet [place] [place] [address] Will Tim MD 02/02/2025 Travel 01/20/2025 [place]phone [place] [place] [address] Lynn Aguiar [place] Referral from Last 3 Months Immunizations Immunization Administration [...] 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 Not on file [...] EDT Procedure Visit [facility] [address] [place] [address] Osei Arevalo, DPKaleigh [address] [place], [place] [phone] Health Maintenance Due Date Last Done Comments [...] PM EDT Narrative 02/27/2025 3:39 PM EDT [address] [address] Magnetic Resonance Report Signed Patient: NEHA DE LA GARZA MR#: [id number] : 1950 Acct:[id number] Age/Sex: 74 / F ADM Date: 02/27/25 Loc: MRI Attending Dr: Quin Hernandez NP Ordering Physician: Quin Hernandez NP Date of Service: 02/27/25 Procedure(s): MR lumbar spine wo con Accession Number(s): [id number] cc: Quin Hernandez NP; WILL TIM [address] [address] Patient Name: NEHA DE LA GARZA MRN: [facility]:[id number] date: 1950 Sex: F Assigned Patient Location: MRI Current Patient Location: MRI Accession/Order Number: [id number] Exam Date: 02/27/2025 15:30 Report Date: 02/27/2025 [...] Salcedo M.D. 02/27/2025 3:36 PM Dictation Location: [facility]ENTER[facility] Electronically authenticated by: [id number] Y Date: 02/27/2025 15:36 Dictated By: Guido Salcedo D.O. Signed By: 02/27/25 1539 DD/ 1536 TD/TT: Senior Sql Server Dba: Procedure Note Radiology, Radiologist, - 02/27/2025 [place] [address] Magnetic Resonance Report Signed Patient: NEHA DE LA GARZA GMR#: [id number] : 1950cct:[id number] Age/Sex: 74 / FADM Date: 02/27/25 Loc: MRI Attending Dr: Quin Hernandez NP Ordering Physician: Quin Hernandez NP Date of Service: 02/27/25 Procedure(s): MR lumbar spine wo con Accession Number(s): [id number] cc: Quin Hernandez NP; WILL TIM [address] [place] [address] Patient Name: NEHA DE LA GARZA MRN: [id number] date: 1950 Sex: F Assigned Patient Location: MRI Current Patient Location: MRI Accession/Order Number: [id number] Exam Date: 02/27/2025 15:30 Report Date: 02/27/2025 [...] Salcedo M.D. 02/27/2025 3:36 PM Dictation Location: [place] [address] Electronically authenticated by: [id number] Y Date: 5:36 Dictated By: Guido Salcedo D.O. Signed By:02/27/25 1539 DD/ 1536 TD/TT: Senior Sql Server Dba: Generic External Data Provider [facility] Final Result * MM TOMOSYNTHESIS SCREENING BI (02/27/2025 2:37 PM EDT) Anatomical Region Laterality Modality Other 02/27/2025 2:37 PM EDT Narrative 02/27/2025 2:38 [place] [address] Mammography Report Signed Patient: NEHA DE LA GARZA MR#: [id number] : 1950 Acct:[id number] Age/Sex: 74 / F ADM Date: 02/27/25 Loc: MAMMO Attending Dr: WILL TIM Ordering Physician: WILL TIM Results: Date of Service: 02/27/25 Follow Up: Procedure(s): MM tomosynthesis screening BI Accession Number(s): [id number] cc: WILL TIM Patient Name: NEHA DE LA GARZA MR#: [id number] : 1950 Exam Date: 02/27/2025 Ordering Doctor: [...] throat cancer at age 77. LOCATION: [facility] BREAST COMPOSITION: The breasts are almost [...] Signed By: 02/27/25 1438 DD/ 36 TD/TT: Senior Sql Server Dba: Procedure Note Radiology, Radiologist, MD - 02/27/2025 [place] [address] Mammography Report Signed Patient: NEHA DE LA GARZA R#: [id number] : 1950cct:[id number] Age/Sex: 74 / FADM Date: 02/27/25 Loc: MAMMO Attending Dr: WILL TIM Ordering Physician: WILL TIMResults: Date of Service: 02/27/25Follow Up: Procedure(s): MM tomosynthesis screening BI Accession Number(s): [id number] cc: WILL TIM Patient Name: NEHA DE LA GARZA MR#: [id number] : 1950 Exam Date: 02/27/2025 Ordering Doctor: [...] throat cancer at age 77. LOCATION: [facility] BREAST COMPOSITION: The breasts are almost [...] D.O. Signed By:02/27/25 1438 DD/ 1437 TD/TT: Senior Sql Server Dba: us Will Tim MD [facility] Final Resu [...] Performing Organization Information Site ID: QPT Name: [facility] Address: [address] [place] [address], [address] [place] [phone] Director: Edgardo Lake MD Will Tim MD LAB URINE ORDERABLES Final R esult Performing Organization Address [facility] de Phone Number [facility] * Hemoglobin A1c [...] diagnosis of diabetes in children. According to [place] Diabetes Association (ADA) guidelines, hemoglobin A1c <7.0% represents optimal control in non- diabetic patients. Different metrics may apply to specific patient populations. Standards of Medical Care in Diabetes(ADA). Blood Venous blood specimen / Unknown 02/13/2025 8:31 AM EDT 02/13/2025 3:49 PM EDT Narrative Resulting Agency Comment Performing Organization Information Site ID: QPT Name: [facility] Address: [address] [place] [address], [address] [place] [address] Director: Edgardo Lake MD Will Tim MD LAB BLOOD ORDERABLES Final R esult Performing Organization Address [facility] de Phone Number [facility] * Diabetic Retinopathy Screening - OU - Both Eyes (07/18/2024 10:02 AM EDT) Anatomical Region Laterality Modality Head Other Angie Early OD OPHTH PHOTOGRAPHY Final Result * Colonoscopy (07/02/2024 11:03 AM EDT) Anatomical Region Laterality Modality Endoscopy us Will Tim MD ENDOSCOPY PROCEDURE ORDERABL ES Final Result * (ABNORMAL) Cologuard?? colon cancer screening (02/24/2024 9:00 AM EDT) NONINV COLON CA DNA+OCC BLD SCRN STL-IMP Positive( A) Negative 03/03/2024 5:41 PM EDT [employer] (CLIA #:[id number]) Comment: POSITIVE TEST RESULT. A positive Cologuard [...] (Henry Wynn al, N Engl J Med 2014;370(14):1127-3450.) Cologuard may produce a false negative or false positive result (no colorectal cancer or precancerous polyp present at colonoscopy follow up). A negative Cologuard test result does not guarantee the absence of CRC or advanced adenoma (pre-cancer). The current Cologuard screening interval is every 3 years. ([place] Cancer Society and U.S. Multi-Society Task Force). Cologuard performance data in a 10,000 patient pivotal study using colonoscopy as the reference method can be accessed at the following location: www.exactlabs.com/results. Additional description of the Cologuard test process, warnings and precautions can be found at www.cologuard.com. Stool specimen (specimen) Rectal contents / Unknown 02/24/2024 9:00 AM EDT 02/26/2024 11:26 AM EDT Will Tim MD LAB MOLECULAR DIAGNOSTICS OR DERABLES Final Result .[email or web address] (CLIA #:[id number]) [address] [address], [facility] (CLIA #:[id number]) [address] [address] from Last 3 Months or Most Recently Relevant to Health Maintenance Insurance MEDICARE [facility] [employer] Advance Directives Documents on File Type Date Recorded Patient Academic Dean Expl anation Advance Directives and Living Will 11/29/2021 2019-04-01 Living Wi ll Advance Directives and Living Will 11/29/2021 2016-04-04 Power Of Embedded Systems Developer Care Teams Scalper Operator Relationship Specialty Start Date End Date Will Tim MD [address] [place] [address] PCP - ACO Reach 02/08/23 Will iTm MD [address] [place] [address] PCP - General Family Medicine 02/10/25 Jeet Aguirre MD [address] [facility] Professional building 1 [place] [address] Referring Physician Rheumatology 10/25/23 Osei Arevalo DPM [address] [place] [address] Referring Physician Podiatry 10/25/23
--- NOTE | 2025-04-16 13:50 | PM.CN ---
Consult Note: HPI Data of Consult Patient: known to practice within the last 3 years Consult date: 03/19/25 Requesting Physician: Selena Hernandez NP Primary Care Provider: LULI ALVAREZ Consult Narrative Reason for consult: low back pain Narrative: Neha Blanc a pleasant 75 year old female presents for evaluation low back pain. Pt has longstanding hx of low back pain, however in November of 2024 she noticed increased pain as well as numbness tingling and weakness of RLE without cause or injury. PCP Dr Alvarez was able to update emg which revealed chronic L5/S1 radiculopathy. Pain 7/10 increasing to 8/10 with standing, walking, bending, activity. Pain improved with sitting, lying, forward flexion, and sleeping. pt denies fall/injury. no prior lumbar surgery, did meet with KONSTANTIN Garcia recently for evaluation. she failed to benefit from 5 weeks of PT at [facility] in [place] as of 12/09. continues to engage in HEP as tolerated. currently utilizing duloxetine, tylenol, and nabumetone with mild relief. follows with rheumatology for RA. recent right L3-4 L4-5 TFESI providing significant improvement in NC, continues to endorse significant facet mediated low back pain. at this time denies numbness tingling to RLE. cc:: CC: Selena Hernandez NP [facility] Medical History Hypoglycemia ?E16.2 - Hypoglycemia, unspecified (ICD-10) High cholesterol ?E78.00 - Pure hypercholesterolemia, unspecified (ICD-10) Chronic GERD ?K21.9 - Gastro-esophageal reflux disease without esophagitis (ICD-10) Low back pain ?M54.50 - Low back pain, unspecified (ICD-10) Osteoarthritis ?M19.90 - Unspecified osteoarthritis, unspecified site (ICD-10) Smoker ?F17.200 - Nicotine dependence, unspecified, uncomplicated (ICD-10) Surgical History (Updated 03/26/25 @ 09:10 by Gillian Mccarthy) H/O arthroplasty ?Z96.60 - Presence of unspecified orthopedic joint implant (ICD-10) H/O arthroscopy ?Z98.890 - Other specified postprocedural states (ICD-10) History of tonsillectomy ?Z90.89 - Acquired absence of other organs (ICD-10) H/O: hysterectomy ?Z90.710 - Acquired absence of both cervix and uterus (ICD-10) History of cholecystectomy ?Z90.49 - Acquired absence of other specified parts of digestive tract (ICD-10) Hx of appendectomy ?Z90.49 - Acquired absence of other specified parts of digestive tract (ICD-10) H/O shoulder replacement ?Z96.619 - Presence of unspecified artificial shoulder joint (ICD-10) Social History Little interest or pleasure in doing things: not at all Feeling down, depressed, or hopeless: not at all Meds Home Medications and Allergies Home Medications ?Medication ?Instructions ?Recorded ?Confirmed ?Type aspirin 81 mg capsule 81 mg PO DAILY 02/18/25 03/30/25 History atorvastatin 10 mg tablet mg 02/18/25 History duloxetine 60 mg capsule,delayed mg PO 02/18/25 History release folic acid 800 mcg tablet 800 mcg PO DAILY 02/18/25 03/30/25 History gabapentin 100 mg tablet 100 mg PO TID 02/18/25 03/30/25 History metformin 1,000 mg tablet mg 02/18/25 History methotrexate sodium 2.5 mg tablet mg 02/18/25 History nabumetone 750 mg tablet mg 02/18/25 History omeprazole 20 mg capsule,delayed mg 02/18/25 History release Allergies Allergy/AdvReac Type Severity Reaction Status Date / Time clindamycin Allergy Severe Rash Verified 03/30/25 11:58 hydroxychloroquine (From Allergy Severe Rash Verified 03/30/25 11:58 Plaquenil) Exam Constitutional Documenting provider has reviewed patient's vital signs: yes Common normals: no apparent distress, oriented x3, healthy appearing, alert and well nourished General appearance: cooperative [facility] Common normals: normocephalic, hearing grossly normal bilaterally and moist oral mucous membranes Head and scalp: normocephalic Eye Common normals: PERRL Pupil: PERRL Neck & C-Spine Common normals: full ROM General: normal visual inspection Chest Common normals: inspection of chest normal Respiratory Common normals: normal respiratory effort, no retractions and no use of accessory muscles Back & Pelvis Lumbar spine/lower back: ROM limited, pain with ROM, lumbar spinal tenderness and straight leg raise negative bilaterally Other: strength 5/5 in BLE, sensation intact notable tenderness l3-l5 facets, positive facet loading Neuro Common normals: oriented x3 Sensorium/orientation: alert Psych Common normals: mental status grossly normal, thought process normal, cooperative, affect normal, speech normal and activity/motor behavior normal Speech: normal speech Thought process: normal thought process Results Imaging Lumbar MRI : Attestation: I have reviewed the pertinent imaging results. Radiologist's impression: L1-2 :Disc space narrowing with endplate changes. Diffuse disc bulge and endplate spurring. Mild central canal stenosis. Posterior element hypertrophy. Mild bilateral neural foraminal narrowing L2-3: Marked disc space narrowing with degenerative endplate change. Diffuse disc bulge with endplate spurring. Moderate to severe central canal stenosis. Moderate bilateral neural foraminal narrowing L3-4: Moderate disc space narrowing. Diffuse disc bulge and endplate spurring. Severe central canal stenosis. Posterior element hypertrophy. Marked bilateral neural foraminal narrowing L4-5: Moderate disc space narrowing. Diffuse disc bulge. Marked central canal stenosis. Posterior element hypertrophy. Marked bilateral neural foraminal narrowing L5-S1: Mild disc space narrowing. Mild anterolisthesis. Moderate central canal stenosis. Diffuse disc bulge. Posterior element hypertrophy. Moderate bilateral neural foraminal narrowing Additional Findings Additional findings: If on a controlled substance or opioids, I have checked an [place]AR[place] report on this patient and there are no aberrancies noted in the prescribing history.??If on a controlled substance or opioid a drug screen was completed and reviewed within the last year, and if there has not been a drug screen completed we ordered one today to monitor higher risk, state monitored pain medication use. As part of providing excellent, safe, comprehensive care, the following was completed at our patient's visit: 1. A medication reconciliation and review to ensure accurate knowledge of current/active medications, including asking our patients to inform us about any [id number] medications or herbal remedies/nutritional supplements/alternative remedies. 2. A review to specifically ensure our patients have had annual screening for screening for depression, screening for tobacco use, and screening for unhealthy alcohol use. For concerning screenings had a discussion with the patient, provided patient education, and recommended follow-up with primary care provider when appropriate. If patient noted with a risk of falling, they received education on strength, gait, and balance training to prevent future risk of falling. Portions of this note may have been carried over from the previous visit and updated as appropriate. Please note this office utilizes paper charting in addition to the electronic medical record. A list of current medications, vitals, and PMH is available there as the clinical staff outside of myself do not have access to [employer] charting during the clinic day operations. As part of providing quality comprehensive care the current medications, vitals, and PMH were reviewed in the paper chart. Assessment and Plan Assessment and Plan (1) Lumbar stenosis with neurogenic claudication: (2) Lumbar spondylosis: Plan 75 year old female with significant multilevel lumbar stenosis and chronic low back pain > 6 months unresponsive to PT, heat, ice, tylenol, NSAIDs. decrease gabapentin 300mg BID due to drowsiness. discussed bilateral L4-5 L5-S1 mbb x2 in consideration of RFA, declining at this time. f/u 3 months, sooner if needed
== END 2025-04-16 13:36 | disposition home or self-care (01) ==
LOC: PM 13:35
PROVIDERS: PCP Family Medicine; Visit Provider Nurse Practitioner
DX: M48.062 Spinal stenosis, lumbar region with neurogenic claudication (principal); M47.816 Spondylosis without myelopathy or radiculopathy, lumbar region
CPT/HCPCS: G0463

== ENCOUNTER 2025-07-16 13:36 | Outpatient (OUT) | payer MEDICARE, OTHER, SELFPAY ==
--- OUTSIDE RECORDS SUMMARY | 2025-07-16 13:39 | XMS_ITS | Clinical Summary ---
Author Organization [facility] Address [address] [place] [address] Phone Care Team Providers Care Braker Passenger Train Name Role Phone Unavailable Primary Care Provider Unavailabl e Social History Tobacco UseTypesPacks/DayYears UsedDateSmoking Tobacco: Never Assessed CommentsUnknownSex and Gender InformationValueDate RecordedSex Assigned at Not on fileLegal KsfMkxozn96/25/2022 8:11 PM ESTGender IdentityNot on fileSexual OrientationNot on file Plan of Treatment Not on file
--- OUTSIDE RECORDS SUMMARY | 2025-07-16 13:39 | XMS_ITS | Clinical Summary ---
Author Organization [facility] Address [address] [place] [address] Care Team Providers Care Luncheonette Manager Name Role Phone Will Alvarez MD Unavailable [phone] Jeet Aguirre MD Unavailable [phone] Osei Arevalo DPM Unavailable Will Alvarez MD Primary Care Provider [phone] Allergies Active AllergyReactionsCriticalityNoted DssqAmhdwwyfEdgkvnvivoxEtesYdt43/11/2024 Swelling/rash HydroxychloroquineHives,Shajjwr7502/08/20233485TbtcoqrnehplNxmkOmy74/16/2023 Medications MedicationSigDispense QuantityRefillsLast FilledStart DateEnd DateStatus aspirin 81 MG EC tablet Take 81 mg by mouth DailyActive methotrexate 2.5 MG tablet Active omeprazole (PriLOSEC) [address] capsule Take 20 mg by mouth in the morning. Take before meals.04/16/2023ctive folic acid (Folvite) 1 MG tablet 1 mg4Active acetaminophen (Tylenol 8 Hour) 650 MG ER tablet Take 650 mg by mouth every 8 (eight) hours if needed for mild pain Do not crush, chew, or split.Active atorvastatin (Lipitor) 10 MG tablet Indications:Mixed hyperlipidemiaTake 1 tablet (10 mg) by mouth at bedtime 90 tablet 5010/20/2025ctive nabumetone (Relafen) 750 MG tablet Take 750 mg by mouth in the morning and 750 mg before bedtime.5Active gabapentin (Neurontin) 100 MG capsule Take 100 mg by mouth 3 (three) times a day5Active calcium citrate 250 MG tablet Indications:Osteopenia1 tablet 2-3 times daily as directed.5Active cholecalciferol (Vitamin D-3) 125 MCG (5000 UT) tablet Indications:Vitamin D DeficiencyOTC vitamin D3 5000 units, Winter dose, take 1 capsule daily.5Active Menaquinone-7 (Vitamin K2) 100 MCG capsule Indications:Osteopenia, unspecified locationTake 1 capsule by mouth Daily 5Active metFORMIN (Glucophage) 1000 MG tablet Indications:Impaired glucose tolerance testTake 1 tablet (1,000 mg) by mouth in the morning and 1 tablet (1,000 mg) in the evening. Take with meals. 180 tablet 506Active DULoxetine (Cymbalta) [address] capsule Indications:Recurrent major depressive disorder, in partial remissionTake 1 capsule (60 mg) by mouth Daily 90 capsule 5Active Active Problems ProblemNoted DateDiagnosed ZmljEattucbigrmlygjb41/01/2025Diverticulosis large intestine w/o perforation or abscess w/o /29/2024rtificial knee joint present, right4Presence of artificial shoulder joint, right02/07/2024 Hypertensive ieogqkbglun72/23/2024Left foot pain08/23/2023ubital tunnel syndrome on left07/05/2023resence of artificial shoulder joint, left07/04/2023 Asymptomatic microscopic uyvmzkaqv26/15/2023Nocturnal dxdswoid49/15/2023Urge incontinence of urine05/01/2023nterolisthesis of cervical spine02/08/2023 Artificial knee joint present, left02/08/2023ervical llqmrsuoy79/25/2023hronic hejshgh2502/08/2023hronic pain geyumjts52/25/2023hronic primary angle-closure glaucoma of both eyes02/08/2023igarette klistu0402/08/2023egenerative disc disease, caurqwjg18/25/4753Gyrokdaxipjcgdb17/25/2023Essential hypertension 02/08/2023astroesophageal reflux disease without nmsvazlcjcd25/25/2023Hx of abdominal gjgsgocsvref67/25/2023Leg length zaovjdieuru36/25/2023Mixed ohkuphhmxdytof06/25/2023Obesity (BMI 30.0-34.9)02/08/2023Recurrent major depressive disorder, in partial xtubpltsf31/25/2023Venous insufficiency 02/08/20232682Ezuwfsepjcnt03/09/2021Rheumatoid xpajjapym28/19/2020Impaired glucose tolerance test01/22/2019Insulin /08/2019 Resolved Problems ProblemNoted DateDiagnosed DateResolved DatePositive colorectal cancer screening using Cologuard testLeft shoulder pain/ Arthritis of right acromioclavicular joint/one spur /rthritis of left glenohumeral joint/ Neurologic disorder associated with diabetes rlrifyam03/ Neuropathy of left lower axrmkqyse98/rimary osteoarthritis of left knee/4Rupture of right rotator cuff/ Status post left knee oexetuloogr63/25/202305/Tear of left rotator cuff / Encounters DateTypeDepartmentCare LepeGtwthsbcmdq49/08/2025[facility] [address] Will Alvarez MD Mixed zblaqylocvqocw46/09/2025External Result Encounter [facility] Unsolicited ObermMarlena alberts FNP 05/19/2025 3:00 PM EDTProcedure Visit [facility] [address] [place] [phone] Osei Arevalo DPM Onychomycosis (Primary Dx); Onychodystrophy; Diabetic polyneuropathy associated with type 2 diabetes mellitus (HCC)05/19/2025 Bamboo flowsheet [facility] [address] [place] [address] Osei Arevalo, DPM 05/19/2025Travelfrom Last 3 Months Immunizations ImmunizationAdministration DatesNext DueABRYSVO - Respiratory syncytial virus (RSV), vaccine, bivalent, protein subunit RSV prefusion F, diluent reconstituted, 0.5 mL, PF08/20/2024Influenza, High Dose Seasonal, Preservative Free08/20/2024,06/17/2020,07/17/2017Influenza, High-dose Seasonal, Quadrivalent, Preservative Free06/28/2022Influenza, Seasonal, Quadrivalent, Adjuvanted 06/13/2023Influenza, Bqawwtocxdg32/27/2023,06/17/2022,07/08/2021,06/17/2020, 06/16/2020,06/24/2019,07/17/2017,06/17/2016Influenza, injectable, quadrivalent, preservative free06/17/2022,07/08/2021,06/23/2019,06/17/2016Influenza, injectable, quadrivalent, preservative free, adnkhokva27/30/2020Influenza, trivalent, ihusupkfxz82/08/2019Pneumococcal Conjugate PCV 13012/29/2018 Pneumococcal Conjugate PCV 4Pneumococcal Polysaccharide PPSV23 01/14/2017,01/14/20155455ZYKT-RNV-6 (COVID-19) vaccine, mRNA, spike protein, LNP, bivalent, preservative free, 30 mcg/0.3 mLdose, lulú-sucrose formulation 07/12/2022Zoster, live02/12/2015 Family History Medical HistoryRelationNameCommentsNo Known ProblemsSisterRelationNameStatus CommentsDaughterAliveFatherDeceasedMotherDeceasedSisterSonAlive2 sons Social History Tobacco UseTypesPacks/DayYears UsedDateSmoking Tobacco: Every DayCigarettes Tobacco Cessation:Ready to Q uit: Not Asked; Counseling Given: Not Answered Comments:6-10 cigs/day Alcohol UseStandard Drinks/WeekCommentsNot Currently0 (1 standard drink = 0.6 oz pure alcohol)caffeine: 2-3 cups per dayPHQ-2AnswerDate RecordedPatient Health Questionnaire-2 Inohr636EducationAnswerDate RecordedWhat is the highest level of school you have completed or the highest degree you have received?High school fzieskrm06/06/2023CommentsNoSex and Gender InformationValueDate RecordedSex Assigned at BirthNot on fileLegal GppQtgmbz58/15/2023 7:09 PM EDT Gender IdentityNot on fileSexual OrientationNot on fileOccupationIndustryJob Start DateJob End DatePart timeNot on fileNot on fileNot on file Last Filed Vital Signs Vital SignReadingTime TakenCommentsBlood Jzcxpzrl466/7205 9:17 AM EDT Gllfc84103/02/2025 2:03 PM EDTTemperature--Respiratory Rate--Oxygen Saturation 96%03/18/2025 2:03 PM EDTInhaled Oxygen Concentration--Otlrpv42.6 kg (180 lb) 05/19/2025 2:54 PM OXOWwzyhe280 cm (5' 3 )05/19/2025 2:54 PM EDTBody Mass Index 31.8905/19/2025 2:54 PM EDT Plan of Treatment DateTypeDepartmentCare Team (Latest Contact Info)Qaoekupbhqu77/02/2025 3:00 PM ESTProcedure Visit [facility] [address] [place] [address] Osei Arevalo, DPKaleigh [address] [place], [place] [id number] Health MaintenanceDue DateLast DoneCommentsCT Uhawkddpdxpf1952FIT 1950FOBT03/19/19523749Jadhqikwlcbho1952Diabetes: Hemoglobin A1C /, 05/30/2024, 05/02/2023, Additional history existsInfluenza Vaccine (#1)/12/2023, 06/13/2023, 06/13/2023, Additional history existsMedicare Annual Wellness (AWV)605/, 02/05/2024, 08/21/2022 Diabetes: Urine Protein Kmjxszzko46/30/85925102/13/2025, 11/29/2021, 06/14/2018 Jhjydssjh84/, 07/22/2021, 02/23/2020, Additional history exists Diabetes: Retinopathy Tkbsbxdro37/01/88907309/17/2023, 09/13/2022FIT-DNA02/23/2027 02/24/20241582Sdulrarygzy09olorectal Cancer Aratplwgh28/16/2034 Pneumococcal Vaccine: 65+ TaqdjWnniyywcs27/04/2024, 12/29/2018, 01/14/2017, Additional history exists Procedures Procedure NamePriorityDate/TimeAssociated DiagnosisCommentsCBC (INCLUDES DIFF/PLT)Vdnzxrq4205/26/2025 1:40 PM EDT SED RATE BY MODIFIED OJJPOWTOQOXgypful33/09/2025 1:40 PM EDT COMPREHENSIVE METABOLIC QJFYVIatunxw72/09/2025 1:40 PM EDT MM TOMOSYNTHESIS SCREENING BI02/27/2025 2:37 PM EDT MICROALBUMIN / CREATININE URINE FBYQRDwzqnhl01/30/2025 8:31 AM EDT Essential hypertension Hypertensive nephropathy Insulin resistance Impaired glucose tolerance test HEMOGLOBIN O9IFvqyasz36/30/2025 8:31 AM EDT Insulin resistance Impaired glucose tolerance test DIABETIC RETINOPATHY SCREENING - OU - BOTH CHXYMwwvczv32/01/2024 10:02 AM EDT YSGVHXXOBQSXfysymn07/16/2024 11:03 AM EDTLAB COLOGUARD?? COLON CANCER SCREEN Icyqnkj8802/24/2024 9:00 AM EDT Colon cancer screening from Last 3 Months or Most Recently Relevant to Health Maintenance Results * Sedimentation rate, automated (05/26/2025 1:40 PM EDT)ComponentValueRef Range Test MethodAnalysis TimePerformed AtPathologist SignatureSED RATE BY MODIFIED QLPFRGGQVD52< OR = 30 mm/hQUESTSpecimen (Source)Anatomical Location / LateralityCollection Method / VolumeCollection TimeReceived Time05/26/2025 1:40 PM EDT05/26/2025 1:41 PM EDT Narrative Resulting Agency Comment Performing Organization Information ?Site ID: QPT ?Name: [employer] [facility] ?Address: [address] [place] [address], [address] [place] [phone] ?Director: Edgardo Lake MD Authorizing ProviderResult TypeResult StatusJodi Obermeyer FNPLAB BLOOD ORDERABLESFinal ResultPerforming OrganizationAddressCity/State/ZIP CodePhone Number [facility] * (ABNORMAL) CBC and differential (05/26/2025 1:40 PM EDT)ComponentValueRef RangeTest MethodAnalysis TimePerformed AtPathologist SignatureWHITE BLOOD CELL COUNT6.53.8 - 10.8 Thousand/uLQUESTRED BLOOD CELL COUNT4.023.80 - 5.10 Million/cYEIHQTGGDYXXMTIU29.3(L)11.7 - 15.5 g/hKRGBVVWZXDIBAHVB15.135.0 - 45.0 %EMGTKOJZ01.380.0 - 100.0 oHANQRQYDM84.127.0 - 33.0 xzFLKRMPCAK48.232.0 - 36.0 g/dLQUESTComment: For adults, a slight decrease in the calculated MCHC value (in the range of 30 to 32 g/dL) is most likely not clinically significant; however, it should be interpreted with caution in correlation with other red cell parameters and the patient's clinical condition. RDW16.7(H)11.0 - 15.0 %QUESTPLATELET VQLFL105072 - 400 Thousand/uLQUESTMPV8.87.5 - 12.5 fLQUESTABSOLUTE NEUTROPHILS4,1601,500 - 7,800 cells/uLQUESTABSOLUTE LYMPHOCYTES1,353799 - 3,900 cells/uLQUESTABSOLUTE BFMYXQZXY747927 - 950 cells/uL QUESTABSOLUTE LFXZGNSBFFS86103 - 500 cells/uLQUESTABSOLUTE ZQNBFRPSI816 - 200 cells/xFZSUAUHTSRWDEDVQN13%KCDKMFDPWZGXPICJ77.3%QUESTMONOCYTES4.0%QUEST EOSINOPHILS1.9%QUESTBASOPHILS0.8%QUESTSpecimen (Source)Anatomical Location / LateralityCollection Method / VolumeCollection TimeReceived Time05/26/2025 1:40 PM EDT05/26/2025 1:41 PM EDT Narrative Resulting Agency Comment Performing Organization Information ?Site ID: QPT ?Name: [employer] [facility] ?Address: [address] [place] [address], [address] [place] [phone] ?Director: Edgardo Lake MD Authorizing ProviderResult TypeResult StatusJodi Obermeyer FNPLAB BLOOD ORDERABLESFinal ResultPerforming OrganizationAddressCity/State/ZIP CodePhone Number [facility] * (ABNORMAL) Comprehensive metabolic panel (05/26/2025 1:40 PM EDT)Component ValueRef RangeTest MethodAnalysis TimePerformed AtPathologist SignatureGlucose 128(H)65 - 99 mg/dLQUESTComment: ? Fasting reference interval For someone without known diabetes, a glucose value >125 mg/dL indicates that they may have diabetes and this should be confirmed with a follow-up test. AMS511 - 25 mg/dLQUESTCreatinine0.620.60 - 1.00 mg/yHPKVEYAGAF92> OR = 60 mL/min/1.14g8TXKIBPFF/CREATININE RATIOSEE NOTE:6 - 22 (calc)QUESTComment: ?? Not Reported: BUN and Creatinine are within ?? reference range. ? Hjcmbu160601 - 146 mmol/LQUESTPotassium, Bld3.93.5 - 5.3 mmol/MVDCLMXqimcink4682 - 110 mmol/LQUESTCarbon Actlwiz5876 - 32 mmol/LQUESTCalcium9.08.6 - 10.4 mg/dL QUESTPROTEIN, TOTAL6.36.1 - 8.1 g/dLQUESTALBUMIN3.73.6 - 5.1 g/dLQUESTGLOBULIN 2.61.9 - 3.7 g/dL (calc)QUESTALBUMIN/GLOBULIN RATIO1.41.0 - 2.5 (calc)QUEST BILIRUBIN, TOTAL0.40.2 - 1.2 mg/dLQUESTALKALINE YSPYMBKCDPI26404 - 153 U/LQUEST EUH7102 - 35 U/BSMKSAHFN61 - 29 U/LQUESTSpecimen (Source)Anatomical Location / LateralityCollection Method / VolumeCollection TimeReceived Time05/26/2025 1:40 PM EDT05/26/2025 1:41 PM EDT Narrative Resulting Agency Comment Performing Organization Information ?Site ID: QPT ?Name: [facility] ?Address: [address] [place] [address], [address] [place] [phone] ?Director: Edgardo Lake MD Authorizing ProviderResult TypeResult StatusJodi Obermeyer FNPLAB BLOOD ORDERABLESFinal ResultPerforming OrganizationAddressCity/State/ZIP CodePhone Number [facility]ST * MM TOMOSYNTHESIS SCREENING BI (02/27/2025 2:37 PM EDT)Anatomical Region LateralityModalityOtherSpecimen (Source)Anatomical Location / Laterality Collection Method / VolumeCollection TimeReceived Time02/27/2025 2:37 PM EDT Narrative 02/27/2025 2:38 PM EDT [facility] ?[address] ? [place] [address] ? Mammography Report ? Signed ? Patient: HOLLI,NEHA G ?MR#: [id number] ?? : 1950 ?Acct:[id number] ?? Age/Sex: 74 / F ?ADM Date: /13/25 ?? Loc: MAMMO ? Attending Dr: WILL ALVAREZ ? Ordering Physician: MEETA,EDWARD ? Results: ? Date of Service: 06/13/25 ?Follow Up: ? Procedure(s): MM tomosynthesis screening BI ?? Accession Number(s): [id number] ? cc: WILL ALVAREZ ? Patient Name: ? NEHA BLANC ? MR#: [id number] ? : 1950 ? Exam Date: 02/27/2025 ?? Ordering Doctor: DR WILL ALVAREZ . ? RADIOLOGY REPORT ? PROCEDURE: ? MM TOMOSYNTHESIS SCREENING BI ? COMPARISON: ? MG MAMM SCREEN 3D ANA CAD, 07/22/2021. ??MG MAMM SCREEN ANA W ?? CAD, 02/23/2020. ??MG MAMM SCREEN ANA W CAD, 01/25/2018. ? INDICATIONS: ? Screening ? Calculator Name ? NCI Breast Cancer Risk Assessment Tool ?? 5 Year Breast Cancer Risk ? 1.40% ?? Lifetime Breast Cancer Risk ? 3.60% ?? Personal Breast Cancer ?No ?? Personal Ovarian Cancer ? No ?? Treatments ? None ?? Family Cancers ? Father with throat cancer at age ??75. ? LOCATION: ? [facility] ? BREAST COMPOSITION: ? The breasts are almost entirely fatty. ? FINDINGS: ? RIGHT BREAST: ??No significant suspicious finding. ? LEFT BREAST: ??No significant suspicious finding. ? DIAGNOSTIC CATEGORY 1--NEGATIVE. ? RECOMMENDATIONS: ? ROUTINE MAMMOGRAM AND CLINICAL EVALUATION IN 12 MONTHS. ? PLEASE NOTE: ??A NORMAL MAMMOGRAM DOES NOT EXCLUDE THE POSSIBILITY OF BREAST ?? CANCER. ??A CLINICALLY SUSPICIOUS PALPABLE LUMP SHOULD BE BIOPSIED. ? Dictated by: Guido Salcedo DO on 02/27/2025 at 14:29 ? Approved by: Guido Salcedo DO on 02/27/2025 at 14:37 ? Dictated By: ?Guido Salcedo D.O. ? Signed By: ?02/27/25 1438 ? DD/ ? TD/TT: ? Classroom Coordinator: Procedure Note Radiology, Radiologist, MD - 02/27/2025 [place] [address] Mammography Report Signed Patient: NEHA BLANC GMR#: [id number] : 1950cct:[id number] Age/Sex: 74 / FADM Date: 02/27/25 Loc: MAMMO Attending Dr: WILL ALVAREZ Ordering Physician: WILL ALVAREZResults: Date of Service: 02/27/25Follow Up: Procedure(s): MM tomosynthesis screening BI Accession Number(s): [id number] cc: WILL ALVAREZ Patient Name: NEHA BLANC MR#: [id number] : 1950 Exam Date: 02/27/2025 Ordering Doctor: DR WILL ALVAREZ . RADIOLOGY REPORT PROCEDURE: MM TOMOSYNTHESIS SCREENING [...] throat cancer at age 77. LOCATION: [facility] BREAST COMPOSITION: The breasts are almost [...] D.O. Signed By:02/27/25 1438 DD/ 1437 TD/TT: Classroom Coordinator: Authorizing ProviderResult TypeResult StatusWill Alvarez MDCLINISYNC IMAGING Final Result * (ABNORMAL) Microalbumin / creatinine urine ratio (02/13/2025 8:31 AM EDT) ComponentValueRef RangeTest MethodAnalysis TimePerformed AtPathologist SignatureCREATININE, RANDOM SBGQS2520 - 275 mg/dLQUESTALBUMIN, URINE3.7See Note: mg/dLQUESTComment: Reference Range: Reference Range Not established ALBUMIN/CREATININE RATIO, RANDOM TYXAP858(H)<30 mg/g creatQUESTComment: The ADA defines abnormalities in albumin excretion as follows: Albuminuria Category ?Result (mg/g creatinine) Normal to Mildly increased <30 Moderately increased ? 30-299 Severely increased > OR = 300 The ADA recommends that at least two of three specimens collected within a 3-6 month period be abnormal before considering a patient to be within a diagnostic category. Specimen (Source)Anatomical Location / LateralityCollection Method / Volume Collection TimeReceived TimeUrineUrine specimen obtained by clean catch procedure / Vgllqer0702/13/2025 8:31 AM EDT02/13/2025 3:49 PM EDT Narrative Resulting Agency Comment Performing Organization Information ?Site ID: QPT ?Name: [employer] [facility] ?Address: [address] [place] [address], [address] [place] [phone] ?Director: Edgardo Lake MD Authorizing ProviderResult TypeResult Vivi Alvarez MDSAINT LUKE H[facility]PITAL & [facility] URINE ORDERABLESFinal ResultPerforming OrganizationAddressCity/State/ZIP CodePhone Number [facility] * Hemoglobin A1c (02/13/2025 8:31 AM EDT)ComponentValueRef RangeTest Method Analysis TimePerformed AtPathologist SignatureHemoglobin A1C5.6<5.7 %QUEST Comment: For the purpose of screening for the presence of diabetes: <5.7% Consistent with the absence of diabetes 5.7-6.4% ?Consistent with increased risk for diabetes ?(prediabetes) > or =6.5% Consistent with diabetes This assay result is consistent with a decreased risk of diabetes. Currently, no consensus exists regarding use of hemoglobin A1c for diagnosis of diabetes in children. According to [place] Diabetes Association (ADA) guidelines, hemoglobin A1c <7.0% represents optimal control in non- diabetic patients. Different metrics may apply to specific patient populations. Standards of Medical Care in Diabetes(ADA). Specimen (Source)Anatomical Location / LateralityCollection Method / Volume Collection TimeReceived TimeBloodVenous blood specimen / Kkuedfr1802/13/2025 8:31 AM EDT02/13/2025 3:49 PM EDT Narrative Resulting Agency Comment Performing Organization Information ?Site ID: QPT ?Name: [employer] [facility] ?Address: [address] [place] [address], [address] [place] [phone] ?Director: Edgardo Lake MD Authorizing ProviderResult TypeResult StatusWill Alvarez MDLAB BLOOD ORDERABLESFinal ResultPerforming OrganizationAddressCity/State/ZIP CodePhone Number [facility] * Diabetic Retinopathy Screening - OU - Both Eyes (07/18/2024 10:02 AM EDT) Anatomical RegionLateralityModalityHeadOther Narrative Authorizing ProviderResult TypeResult StatusAngie Early ODOPHTH PHOTOGRAPHYFinal Result * Colonoscopy (07/02/2024 11:03 AM EDT)Anatomical RegionLateralityModality Endoscopy Narrative Authorizing ProviderResult TypeResult StatusWill Alvarez MDENDOSCOPY PROCEDURE ORDERABLESFinal Result * (ABNORMAL) Cologuard?? colon cancer screening (02/24/2024 9:00 AM EDT) ComponentValueRef RangeTest MethodAnalysis TimePerformed AtPathologist SignatureNONINV COLON CA DNA+OCC BLD SCRN STL-IMPPositive(A)Wefnzclh04/17/2024 5:41 PM EDTEXMadison Vaccines (CLIA #:[id number])Comment: POSITIVE TEST RESULT. A positive Cologuard result should be followed with a colonoscopy or visual examination of the colon. The normal value (reference range) for this assay is negative. TEST DESCRIPTION: Composite algorithmic analysis of stool DNA-biomarkers with hemoglobin immunoassay. ?? Quantitative values of individual biomarkers are not reportable and are not associated with individual biomarker result reference ranges. Cologuard is intended for colorectal cancer screening ofadults of either sex, 45 years or older, [...] screened with both Cologuard and colonoscopy. (Henry Thomason et al, N Engl J Med 2014;370(14):2760-0913.) Cologuard may produce a false negative or false positive result (no colorectal cancer or precancerous polyp present at colonoscopy follow up). A negative Cologuard test result does not guarantee the absence of CRC or advanced adenoma (pre-cancer). The current Cologuard screening interval is every 3 years. ([place] Cancer Society and U.S. Multi-Society Task Force). Cologuard performance data in a 10,000 patient pivotal study using colonoscopy as the reference method can be accessed at the following location: [email or web address]ee Learn/results. Additional description of the Cologuard test process, warnings and precautions can be found at www.cologPSI Systemsrd.com. Specimen (Source)Anatomical Location / LateralityCollection Method / Volume Collection TimeReceived TimeStool specimen (specimen)Rectal contents / Unknown 02/24/2024 9:00 AM EDT02/26/2024 11:26 AM EDT Narrative Authorizing ProviderResult TypeResult StatusEdjake [facility] ORDERABLESFinal ResultPerforming OrganizationAddressCity/State/ZIP CodePhone Number .[phone] (CLIA #:[id number]) [address] [address], EVRYTHNG (CLIA #:[id number]) [address] [place] [address] from Last 3 Months or Most Recently Relevant to Health Maintenance Insurance Advance Directives TypeDate RecordedPatient RepresentativeExplanationAdvance Directives and Living Will Living WillAdvance Directives and Living Will11/29/2021 2016-04-04 Power Of Guitar Maker Care Teams Team MemberRelationshipSpecialtyStart DateEnd Will Alvarez MD [address] [address] PCP - ACO Reach02/08/23 Will Alvarez MD [address] [address] PCP - GeneralFamily Medicine02/10/25 Jeet Aguirre MD [address] [place] [address] Referring PhysicianRheumatology2 Osei Arevalo DPM [address] [place] [address] Referring PhysicianPodiatry2
--- OUTSIDE RECORDS SUMMARY | 2025-07-16 13:39 | XMS_ITS | Clinical Summary ---
Author Organization [facility] Address [facility] – [place]-[id number] [address] [place] [address] Care Team Providers Care Research Clerk Name Role Phone Will Alvarez MD Primary Care Provider + [phone] Allergies Active AllergyReactionsCriticalityNoted DateCommentsLevofloxacinRashLow 05/02/20236664AkkrrvciapzenspdffAlndOkc11/03/2021 Medications MedicationSigDispense QuantityRefillsLast FilledStart DateEnd DateStatus methotrexate 2.5 mg chemo tablet Indications:rheumatoid arthritisTake 1 tablet by mouth once a week 8 tabs every Sunday Indications: rheumatoid arthritisActive iocshevb-tlob-BG-calcium &mins (THERAGRAN-M) 9 mg iron-400 mcg tablet Take 1 tablet by mouth in the morning.Active omeprazole (PriLOSEC) 20 mg capsule Indications:gastroesophageal reflux diseaseTake 1 capsule (20 mg total) by mouth in the morning. Indications: gastroesophageal reflux disease.Active atorvastatin (LIPITOR) 10 mg tablet Indications:mixed hyperlipidemiaTake 1 tablet (10 mg total) by mouth in the morning. Indications: high cholesterol and high triglycerides.Active metFORMIN (GLUCOPHAGE) 1000 mg tablet Indications:type 2 diabetes mellitusTake 1 tablet (1,000 mg total) by mouth in the morning and 1 tablet (1,000 mg total) in the evening. Take with meals. Indications: type 2 diabetes mellitus.Active folic acid (FOLVITE) 1 mg tablet Take 1 tablet (1 mg total) by mouth in the morning.Active latanoprost (XALATAN) 0.005 % ophthalmic solution Indications:open angle glaucomaAdminister 1 drop to both eyes nightly Indications: wide-angle glaucoma.Active aspirin 81 mg Indications:myocardial infarction preventionTake 1 tablet (81 mg total) by mouth in the morning. Indications: treatment to prevent a heart attack.Active gabapentin (NEURONTIN) 600 mg tablet Indications:neuropathic painTake 1 tablet (600 mg total) by mouth as needed Indications: neuropathic pain.01/08/2023ctive amoxicillin (AMOXIL) 500 mg capsule Take 1 capsule (500 mg total) by mouth once.Active DULoxetine (CYMBALTA) 60 mg capsule Take 1 capsule (60 mg total) by mouth in the morning.06/14/2022ctive sennosides-docusate sodium (SENOKOT-S) 8.6-50 mg Indications:Left rotator cuff tear arthropathyTake 2 tablets by mouth in the morning and 2 tablets before bedtime. 120 tablet 05/17/2023ctive Active Problems ProblemNoted DateDiagnosed DateUrge incontinence of urine05/02/2023symptomatic microscopic bvyyjlsmp94/15/2023Left rotator cuff tear /14/2023 Neuropathy of left lower wivbffmna34/25/2023Leg length ceolufnbmgo06/25/2023 Degenerative disc disease, jrsxnevu81/25/2023hronic pain pxbjidoj57/12/2021 Recurrent vgyxniqhs20/27/2021hronic psssupr1905/25/2021nkylosis of knee joint 02/03/2021tatus post right knee pvtzqamamur17/12/2021rimary osteoarthritis of right knee11/09/2020Unspecified rotator cuff tear or rupture of left shoulder, not specified as acbjscipk42/16/2020Gastroesophageal reflux disease without aewzoutcxds87/27/2020Chronic primary angle-closure glaucoma of both eyes 02/11/2020Rheumatoid ibjdqyrfh83/19/6762Qhbkefs34/24/2020Artificial knee joint oaxodlz0107/29/2019Difficulty icqatpt2807/27/2019Venous tsbtodqachbgm67/14/2019 Recurrent major depressive disorder, in partial /14/2019Mixed yweyjnuijejowl19/06/2018Essential kaxjphaxpiev37/13/2017 Family History Medical HistoryRelationNameCommentsDiabetesFatherDiabetesMotherAnesthesia problemsNeg HxRelationNameStatusCommentsFatherMother Social History Tobacco UseTypesPacks/DayYears UsedDateSmoking Tobacco: Every DayCigarettes0.342 Passive Smoke Exposure: PastSmokeless Tobacco: NeverAlcohol UseStandard Drinks/WeekCommentsNever0 (1 standard drink = 0.6 oz pure alcohol)AUDIT-CAnswer Date RecordedQ1: How often do you have a drink containing alcohol?Never 10/20/2020verage Number of DrinksNot on file10/20/2020Frequency of Binge DrinkingNot on file10/20/2020HQ-2AnswerDate RecordedTotal Murqu076 Housing InstabilityAnswerDate RecordedAre you worried or concerned that in the next two months you may not have stable housing that you own, rent or stay in as a part of a household?No05/16/2023hildcareAnswerDate RecordedDo problems getting children teacher make it difficult for you to work or study?No11/10/2020 EmploymentAnswerDate RecordedDo you need help finding a local career center and/or a training program?No11/10/2020Hunger ScreeningAnswerDate RecordedWithin the past 12 months we worried whether our food would run out before we got money to buy more.Never True08/07/2023Within the past 12 months the food we bought just didn't last and we didn't have money to get more.Never True08/07/2023 Purpose - LifeAnswerDate RecordedI have a purpose and direction in my life.Agree 11/10/2020CommentsNoSex and Gender InformationValueDate RecordedSex Assigned at BirthNot on fileLegal PwmHzvtnh56/06/2015 11:53 AM EDTGender IdentityNot on fileSexual OrientationNot on file Last Filed Vital Signs Vital SignReadingTime TakenCommentsBlood Mttdivui488/59005/16/2023 1:58 PM EDT Rssou3400/30/2023 1:58 PM XESOhrhzzcneep22.1 ??C (97 ??F)05/16/2023 1:58 PM EDT Respiratory Rzeo683205/16/2023 1:58 PM EDTOxygen Lzpgdgprqx301%05/16/2023 1:58 PM EDTInhaled Oxygen Concentration--Yjodxy14.5 kg (184 lb)08/07/2023 12:47 PM EST Dtyztq072 cm (5' 3 )08/07/2023 12:47 PM ESTBody Mass Index32.5908/07/2023 12:47 PM EST Plan of Treatment Health MaintenanceDue DateLast DoneCommentsDepression Nhzbajqaa48/03/1964 DTaP,Tdap and Td Vaccines (1 - Tdap)1971Zoster (Shingles) Vaccine (2 of 3) Fall Risk Rxezumznz92/03/2017Adult BMI Csvndtdob08/21/2024 08/07/2023Tobacco Vavoilkuh35OVID-19 Vaccine ( - season), 10/26/2020, 10/05/2020Influenza Wvxqctb3205/18/2025 06/13/2023, 06/17/2022, 07/08/2021, Additional history exists Goals GoalPatient Goal TypeAssociated ProblemsRecent ProgressPatient-Stated?Author Improve mobility Zenia Jason RN Note: Evaluation of progress towards goal: Maximize work with PT at discharge to strengthen Left TSR Medical Devices ImplantedTypeAreaManufacturerDevice IdentifierShelf Expiration DateModel / Serial / LotBearing Hum 36mm Cmprh Std Shldr Prlng Rvrs - [id number] Implanted:Qty: 1 on 05/16/2023 by Joshua Rincon MD at [facility]BearingLeft: ShoulderZimmer Biomet [id number] / / [id number] Bn Bio 40gm Rpl [id number] - Sna - [id number] Implanted:Qty: 2 on 11/10/2020 [facility]: KneeZimmer [id number] / NA / [id number] Fem 5 Kn Rt Crcte Rtn - Sna - [id number] Implanted:Qty: 1 on 11/10/2020 by Slava Magana, DO at [facility] ImplantRight: Knee RMERAKZKXRBD49/31/[id number] / NA / [id number] Ptlr 35mm Medialized Dome - Sna - [id number] Implanted:Qty: 1 on 11/10/2020 by Slava Magana, DO at [facility] ImplantRight: Knee OPZAOQMINBHP89/30/[id number] / NA / [id number] Tib 5 5mm Cr Fx Brng - Sna - [id number] Implanted:Qty: 1 on 11/10/2020 by Slava Magana DO at [facility] ImplantRight: [facility] LWTXJUUYNUXC07/31/[id number] / NA / [id number] Kn Fx Brng W Spcl Ins Construct Rpl [id number] - Sna - [id number] Implanted:Qty: 1 on 11/10/2020 by Slava Magana DO at [facility] ImplantRight: [facility] [id number] / NA / NABaseplate Krishna Cmprh Sm Shldr Aug Tpr Adpr - [id number] Implanted:Qty: 1 on 05/16/2023 by Joshua Rincon MD at [facility] ImplantLeft: Shoulder Stewart [id number] / / [id number] Krishna 36mm Std Glenosphere Clr Cd Cmprh Versa-Dial - [id number] Implanted:Qty: 1 on 05/16/2023 by Joshua Rincon MD at [facility] ImplantLeft: Shoulder Setwart [id number] / / [id number] Hum 55mm 11mm Cmprh Por Mt Shldr Rvrs Sys - [id number] Implanted:Qty: 1 on 05/16/2023 by Joshua Rincon MD at [facility] INCOrthopedic ImplantLeft: Shoulder Stewart Apamnm36/25/[id number] / / [id number] Hum Cmprh Std Shldr Rvrs - [id number] Implanted:Qty: 1 on 05/16/2023 by Joshua Rincon MD at [facility]Orth[facility] ImplantLeft: Shoulder Stewart [id number] / / [id number] Tib 5 Kn Cmnt Fx Brng - Sna - [id number] Implanted:Qty: 1 on 11/10/2020 by [facility] DO [facility]lateRight: KneeJJ CAEBWBMTKOHN51/30/[id number] / NA / [id number] Bn 30mm 6.5mm Cntr Hx Hd Ti Cmprh 3.5mm Strl Rvrs - [id number] Implanted:Qty: 1 on 05/16/2023 by [facility]wLeft: ShoulderZimmer Biomet [id number] / / [id number] Bn 20mm 4.75mm Lck Fx Ang Hx Hd Ti Cmprh 3.5mm Strl - [id number] Implanted:Qty: 1 on 05/16/2023 by Joshua Rincon MD at [facility]crewLeft: ShoulderZimmer Biomet [id number] / / [id number] Bn 15mm 4.75mm Lck Fx Ang Hx Hd Ti Cmprh 3.5mm Strl - [id number] Implanted:Qty: 1 on 05/16/2023 by [facility]con [facility] at [facility]wLeft: ShoulderZimmer [employer] [id number] / / [id number] Bn 15mm 4.75mm Lck Fx Ang Hx Hd Ti Cmprh 3.5mm Strl - [id number] Implanted:Qty: 1 on 05/16/2023 by [facility] at [facility]crewLeft: ShoulderZimmer [employer] [id number] / / [id number] Bn 20mm 4.75mm Va Hx Hd Ti Cmprh 3.5mm Strl Rvrs Shldr - [id number] Implanted:Qty: 1 on 05/16/2023 by [facility]wLeft: ShoulderZimmer [employer] [id number] / / [id number] Insurance Advance Directives TypeDate RecordedPatient RepresentativeExplanationDurable Power of Package 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
--- OUTSIDE RECORDS SUMMARY | 2025-07-16 13:42 | XMS_ITS | CCD ---
Author Organization [facility] Inform ion Partnership [facility] Care Team Providers Care Teacher'S Aide Name Role Phone MD Willie Garcia Attending Provider MD Will Tim Primary Care Provider [phone] Willie Garcia Unavailable MD Willie Garcia Attending Provider [phone] MD Will Tim Primary Care Provider [phone] MEETA, DR ROCKWELL Primary Care Unavailable CHATAIGNIER, DR ADALI Rausch Consulting Unavailable URIARTE, DR GRACE Admitting Unavailable URIARTE, DR GRACE Attending Unavailable URIARTE, DR GRACE Consulting Unavailable HEMEYER, DR ROCKWELL Primary Care Unavailable UIRARTE, DR GRACE Consulting Unavailable URIARTE, DR GRACE Admitting Unavailable URIARTE, DR GRACE Attending Unavailable HEMEYER, DR ROCKWELL Primary Care Unavailable MISC, DR KINGSLEY Consulting Unavailable URIARTE, DR GRACE Attending Unavailable URIARTE, DR GRACE Admitting Unavailable KARUNA, MAK Attending Unavailable MAK BECKMAN Consulting Unavailable MAK BECKMAN Admitting Unavailable HEMEYER, DR ROCKWELL Primary Care Unavailable HEMEYER, DR ROCKWELL Primary Care Unavailable MARIO ALBERTO GARCIA Attending Unavailable MARIO ALBERTO GARCIA Admitting Unavailable ZIEBER, DR THOMAS Vasquez Consulting Unavailable MARIO ALBERTO GARCIA Consulting Unavailable PRIYA SCHNEIDER Consulting Unavailable HEMEYER, DR ROCKWELL Primary Care Unavailable MISC, DR KINGSLEY Consulting Unavailable KALANI, DR GRACE Admitting Unavailable KALANI, DR GRACE Attending Unavailable Will Tim MD Primary Care Provider Will Tim MD Unavailable [phone] Alexis Magana DO Unavailable [phone] Jeet Uriarte MD Unavailable Osei Arevalo DPM Unavailable [phone] PETR Coleman Attending Unavailable PETR Coleman Admitting Unavailable HEMEWILL VYAS. Primary Care Unavailable HEMEAGUSTINA, EDJAKE J. Primary Care Unavailable PETR Coleman Attending Unavailable PETR Coleman Admitting Unavailable HEMEAGUSTINA, EDJAKE J. Primary Care Unavailable PETR Coleman Attending Unavailable PETR Coleman Admitting Unavailable HEMEAGUSTINA, EDJAKE J. Primary Care Unavailable PETR Coleman Attending Unavailable PETR Coleman Admitting Unavailable HEMEYER, EDJAKE J. Primary Care Unavailable PETR Coleman Attending Unavailable PETR Colemanine Admitting Unavailable PETR Coleman Admitting Unavailable PETR Coleman Attending Unavailable HEMEWILL VYAS J. Primary Care Unavailable PETR Coleman Admitting Unavailable PETR Coleman Attending Unavailable HEMEWILL VYAS J. Primary Care Unavailable PETR Coleman Admitting Unavailable PETR Coleman Attending Unavailable HEMEWILL VYAS J. Primary Care Unavailable PETR Coleman Attending Unavailable PETR Coleman Admitting Unavailable HEMEAGUSTINA, WILL Leo. Primary Care Unavailable Alexis Magana Admitting Unavail able Alexis Magana Attending Unavail able WILL TIM. Primary Care Unavailable Alexis Magana Attending Unavail able Alexis Magana Admitting Unavail able WILL TIM. Primary Care Unavailable Will Tim MD Primary Care Provider Will Tim MD Unavailable Will Tim MD Unavailable Will Tim MD Primary Care Provider Luis Manuel JORDAN, Leonel Faust Attending Unavailable Will Tim MD Primary Care Provider Willie Garcia MD Attending Provider [phone] Willie Garcia Attending Unavailable Willie Garcia Admitting Unavailable Will Tim Primary Care Unavailable HEMEWILL VYAS Attending Unavailable OSEI AREVALO Attending Unavailable HEMEWILL VYAS Attending Unavailable NATALYA LYONS Attending Unavailable HEMEYER, EDWARD J Referring Unavailable MICHELA CAMPOS Attending Unavailable HEMEYER, EDWARD J Referring Unavailable CHASE RENDON Attending Unavailable HEMEYER, EDWARD J Referring Unavailable KELBLEY, JAIMEE Attending Unavailable HEMEYER, EDWARD J Referring Unavailable KELBLEY, JAIMEE Attending Unavailable HEMEYER, EDWARD J Referring Unavailable KELBLEY, JAIMEE Attending Unavailable HEMEYER, EDWARD J Referring Unavailable KELBLEY, JAIMEE Attending Unavailable HEMEYER, EDWARD J Referring Unavailable KELBLEY, JAIMEE Attending Unavailable HEMEYER, EDWARD J Referring Unavailable KELBLEY, JAIMEE Attending Unavailable HEMEYER, EDWARD J Referring Unavailable KELBLEY, JAIMEE Attending Unavailable HEMEYER, EDWARD J Referring Unavailable KELBLEY, JAIMEE Attending Unavailable HEMEYER, EDWARD J Referring Unavailable ALEN KNOWLES Attending Unavailable HEMEYER, EDWARD J Referring Unavailable HEMEYER, EDWARD J Attending Unavailable HEMEYER, EDWARD J Attending Unavailable ALEN KNOWLES Attending Unavailable OSEI AREVALO Attending Unavailable ALEXIS MAGANA Attending Unavailable MICHELA CAMPOS Attending Unavailable HEMEYER, EDWARD J Referring Unavailable HEMEYER, EDWARD J Attending Unavailable OSEI AREVALO S Attending Unavailable HEMEYER, EDWARD J Attending Unavailable OSEI AREVALO S Attending Unavailable Allergies Allergy ClassificationReported Allergen(s)Allergy TypeDate of OnsetReaction(s) Facility (20 sources)HydroxychloroquineDrug Wknjlgg46-65-6985ixlj, [facility] (2 sources)Hydroxychloroquine; Translations: [Plaquenil]Drug Psdgttk64-80-4008 [facility] (1 source)HydroxychloroquineDrug AllergyThe [facility] (20 sources)levoFLOXacinDrug Vtivzfu95-79-0839UzyuCWIG [facility] (20 sources)ClindamycinDrug Ywaghhj68-61-3541TpxaGYYL [facility] (1 source)ClindamycinDrug Ftdryem43-96-4253[facility] ([facility] source)HydroxychloroquineDrug Azhzpvg89-45-8377[facility]uhqsProtest[facility] Medications Current Medications MedicationDrug Class(es)DatesSig (Normalized)Sig (Original)8 hr acetaminophen 650 mg extended release oral tablet (20 sources)take 1 tablet by mouth every eight hours as needed for pain acetaminophen (Tylenol 8 Hour) 650 MG ER tablet Take 650 mg by mouth every 8 (eight) hours if needed for mild pain Do not crush, chew, or split. Activetake 1 tablet by mouth every six hours as neededacetaminophen (Tylenol) 500 MG tablet Take 500 mg by mouth every 6 (six) hours if needed. 0 Activeamoxicillin 500 mg oral tablet (8 sources)Penicillin-class AntibacterialStart: 05-13-2024 End: 52-28-8917jxpp 4 tablets by mouth once at mealtimeamoxicillin (Amoxil) 500 MG tablet Indications: S/P reverse total shoulder arthroplasty, right 4 tabs PO once 30-60 mins before procedure with food 4 tablet 3 05/13/2024 05/23/2024 DiscontinuedStart: 59-58-2206exwo 4 tablets by mouth once at mealtimeamoxicillin (Amoxil) 500 MG tablet Indications: S/P reverse total shoulder arthroplasty, right 4 tabs PO once 30-60 mins before procedure with food 4 tablet 3 05/13/2024 Active End: 48-06-1779lakgivwmzwq (Amoxil) 500 MG capsule Take 500 mg by mouth See administration instructions. Take 4 capsules 45 minutes prior to dental appointment 05/13/2024 Discontinued (Therapy completed)Aspir-81 (3 sources)Aspir-81 Activeaspirin 81 mg delayed release oral tablet (20 sources)Platelet Aggregation Inhibitor, Nonsteroidal Anti-inflammatory Drug Start: 02-20-3605kunm 1 tablet by mouth once daily in the morningAspirin 81 mg Tablet,Delayed Release (Dr/Ec) Active 81 MG PO Every morning July 12, 2022 12:00am Complies with drug therapyatorvastatin 10 mg oral tablet (20 sources)HMG-CoA Reductase InhibitorStart: 07-12-2022 End: 08-52-0569wipj 1 tablet by mouth at bedtimeatorvastatin (Lipitor) 10 MG tablet Indications: Mixed hyperlipidemia Take 1 tablet (10 mg) by mouth at bedtime 90 tablet 3 10/20/2024 10/20/2025 ActiveAtorvastatin Calcium Active calcium citrate 1040 mg oral tablet (5 sources)Start: 49-94-7717zpolosj citrate 250 MG tablet Indications: Osteopenia 1 tablet 2-3 times daily as directed. 03/18/2025 Active cholecalciferol 0.125 mg oral tablet (5 sources)Vitamin DStart: 97-32-4954ecutqonyqpkfnyc (Vitamin D-3) 125 MCG (5000 UT) tablet Indications: Vitamin D Deficiency OTC vitamin D3 5000 units, Winter dose, take 1 capsule daily. 03/18/2025 ActiveDULoxetine 60 mg delayed release oral capsule (20 sources)Serotonin and Norepinephrine Reuptake InhibitorStart: 02-18-2025 End: 69-38-2267bjpj 1 capsule by mouth once dailyDULoxetine (Cymbalta) [address] capsule Indications: Recurrent major depressive disorder, in partialremission Take 1 capsule (60 mg) by mouth Daily 90 capsule 1 03/23/2025 06/21/2025 Active Start: 08-05-2024 End: 87-86-8764wjdg 1 capsule by mouth once dailyDULoxetine (Cymbalta) [address] capsule Indications: Recurrent major depressive disorder, in partialremission (HCC) (CMS/HCC) Take 1 capsule (60 mg) by mouth Daily 90 capsule 1 08/05/2024 ActiveStart: 01-28-2024 End: 49-45-5958pdge 1 capsule by mouth once dailyDULoxetine (Cymbalta) [address] capsule Indications: Recurrent major depressive disorder, in partialremission (HCC) (CMS/HCC) Take 1 capsule (60 mg) by mouth Daily 90 capsule 1 01/28/2024 ActiveStart: 06-28-2023 End: 91-38-0856nkka 1 capsule by mouth in the morningDULoxetine (Cymbalta) [address] capsule Indications: Recurrent major depressive disorder, in partial remission (HCC) (CMS/HCC) Take 1 capsule (60 mg) by mouth in the morning. 90 capsule 1 06/28/2023 12/25/2023 ActiveStart: 17-35-6946vtiu 2 capsules by mouth once daily in the morningDuloxetine 20 mg capsule,delayed release(DR/EC) Active 40 MG PO Every morning July 12, 2022 12:00am Complies with drug therapy Start: 38-99-7957ghad 40 mg by mouth once daily in the morningDuloxetine Active 40 MG PO Every morning July 11, 2022 11:00pmStart: 12-17-0564pavj 1 capsule by mouth every twelve hoursDULoxetine HCl 20 MG 1 capsule Orally Twice a day for 30 day(s) Jun, Activeferrous sulfate 325 mg oral tablet (2 sources)Start: 10-02-2023 End: 68-22-2107jqja 1 tablet by mouth at mealtimeferrous sulfate (FerrouSul) 325 (65 Fe) MG tablet Indications: Osteoarthritis of right glenohumeraljoint Take 1 tablet (325 mg) by mouth in the morning. Take with meals. 30 tablet 11 10/02/2023 10/01/2024 Activefolic acid 1 mg oral tablet (20 sources)Start: 05-93-7559bkcye acid (Folvite) 1 MG tablet 1 mg 10/30/2023 ActiveStart: 88-93-2559qbic 1 tablet by mouth every twenty-four hoursFolic Acid 800 MCG 1 tablet Orally Once a day for 30 day(s) Jun, Activegabapentin 400 mg oral capsule (18 sources)Anti-epileptic AgentStart: 34-15-2158Ndezexetpn 400 mg capsule Active 300 MG PO Twice daily May 12, 2025 9:20am Complies with drug therapy Start: 57-83-9275zoku 1 capsule by mouth three times dailygabapentin (Neurontin) 100 MG capsule Take 100 mg by mouth 3 (three) times a day 02/18/2025 Active Start: 07-12-2022 End: 59-35-0866czlk 1 capsule by mouth four times dailyGabapentin 400 mg capsule Discontinued 400 MG PO Four times daily July 12, 2022 12:00am 2024 9:21amStart: 53-55-7431phuz 1 capsule by mouth every eight hoursGabapentin 400 MG 1 capsule Orally tid for 30 day(s) Jun, ActivemetFORMIN hydrochloride 1000 mg oral tablet (20 sources)BiguanideStart: 03-23-2025 End: 93-45-9965kibn 1 tablet by mouth in the morningmetFORMIN (Glucophage) 1000 MG tablet Indications: Impaired glucose tolerance test Take 1 tablet (1,000 mg) by mouth in the morning and 1 tablet (1,000 mg) in the evening. Take with meals. 180 tablet1 03/23/2025 09/19/2025 ActiveStart: 07-12-2022 End: 09-25-6652omyf 1 tablet by mouth twice dailyMetformin 1,000 mg tablet Active 1000 MG PO Twice daily July 12, 2022 12:00am Complies with drug therapymetFORMIN HCl Activemethotrexate 2.5 mg oral tablet (20 sources)Folate Analog Metabolic InhibitorStart: 52-13-0320Kyqdjqigsvrp Sodium 2.5 mg tablet Active 17.5 MG PO every week July 12, 2022 12:00am sunday Complies with drug therapyStart: 93-21-5799fbsc 17.5 mg by mouth every weekMethotrexate Sodium Active 17.5 MG PO every week July 11, 2022 11:00pm mondaystart: 28-58-6064Jyyiznooneof 2.5 MG as directed Orally Jun, Activetake 8 tablets by mouth every weekmethotrexate 2.5 MG tablet 8 tablets Orally once a week for 90 days ActivemethylPREDNISolone (14 sources)CorticosteroidStart: 06-02-2024 End: 43-20-5559rqnvjwTKTRNGRrypzm (Medrol Dospak) 4 MG tablets Indications: Primary osteoarthritis of left ankle Take as directed on package. 21 tablet 06/02/2024 07/03/2024 Discontinued (Therapy completed)Start: 06-02-2024 methylPREDNISolone (Medrol Dospak) 4 MG tablets Indications: Primary osteoarthritis of left ankle Take as directed on package. 21 tablet 06/02/2024 ActiveStart: 04-29-2024 End: 05-95-8057zavvjpYFEAJYVsokzk (Medrol Dospak) 4 MG tablets Indications: Primary osteoarthritis of left ankle ,Primary osteoarthritis of right ankle Take as directed on package. 21 tablet 04/29/2024 05/23/2024 DiscontinuedStart: 44-22-8708mvsnmnQLZMZDOqvgcf (Medrol Dospak) 4 MG tablets Indications: Primary osteoarthritis of left ankle ,Primary osteoarthritis of right ankle Take as directed on package. 21 tablet 04/29/2024 ActiveStart: 48-67-6595Efik-Medrol 80 mg Jul, 80 mgMultivitamin preparation (3 sources)Start: 18-15-2937rqly 1 tablet by mouth once daily in the morning Multivitamin Active 1 TAB PO Every morning July 11, 2022 11:00pmStart: 21-53-3389dijg 1 tablet by mouth once daily in the morningMultivitamin Active 1 TAB PO Every morning July 12, 2022 12:00amnabumetone 500 mg oral tablet (20 sources)Nonsteroidal Anti-inflammatory DrugStart: 84-59-0839lsty 1 tablet by mouth once dailyNabumetone 500 mg tablet Active 500 MG PO Daily April 09, 2025 12:00am Complies with drug therapyStart: 17-71-4441gqkz 1 tablet by mouth in the morningnabumetone (Relafen) 750 MG tablet Take 750 mg by mouth in the morning and 750 mg before bedtime. 01/23/2025 ActiveStart: 06-02-2024 End: 03-80-5644ajpl 1 tablet by mouth in the morningnabumetone (Relafen) 750 MG tablet Indications: Left foot pain Take 1 tablet (750 mg) by mouth in the morning and 1 tablet (750 mg) before bedtime. 180 tablet 07/03/2024 10/01/2024 ActiveStart: 07-12-2022 End: 36-16-6426Puucdreqop 750 mg tablet Discontinued MG July 12, 2022 12:00am July 12, 2022 2:25pmStart: 07-12-2022 End: 44-31-5050Ypijxfymgz Discontinued MG TABLET July 11, 2022 11:00pm July 12, 2022 1:25pmomeprazole 20 mg delayed release oral capsule (20 sources)Proton Pump InhibitorStart: 53-24-2765ymro 1 capsule by mouth before mealtimeomeprazole (PriLOSEC) [address] capsule Take 20 mg by mouth in the morning. Take before meals. 04/16/2023 ActiveStart: 32-03-0896cmeb 1 tablet by mouth once daily in the morningOmeprazole 20 mg Tablet,Delayed Release (Dr/Ec) Active 20 MG PO Every morning July 12, 2022 12:00am Complies with drug therapyOmeprazole Activevitamin k2 0.1 mg oral capsule (5 sources)Start: 21-29-9854agzc 1 capsule by mouth once dailyMenaquinone-7 (Vitamin K2) 100 MCG capsule Indications: Osteopenia, unspecified location Take 1 capsule by mouth Daily 03/18/2025 Active Completed/Discontinued Medications MedicationDrug Class(es)DatesSig (Normalized)Sig (Original)cephalexin 500 mg oral capsule (4 sources)Cephalosporin AntibacterialStart: 07-26-2022 End: 60-08-9062lyce 1 capsule by mouth three times dailyCephalexin 500 mg capsule Discontinued 500 MG PO Three times daily July 26, 2022 1:00am April 09, 2025 8:25amcitalopram 10 mg oral tablet (6 sources)Serotonin Reuptake InhibitorStart: 07-12-2022 End: 63-59-4880Fqudrapodk 10 mg tablet Discontinued MG July 12, 2022 12:00am July 12, 2022 2:21pmStart: 07-12-2022 End: 34-31-8060Fqxgzjkcha Discontinued MG TABLET July 11, 2022 11:00pm July 12, 2022 1:21pmfluconazole 200 mg oral tablet (2 sources)Azole AntifungalStart: 06-10-2024 End: 17-78-7730nloz 1 tablet by mouth once dailyfluconazole (Diflucan) 200 MG tablet Indications: Candidiasis Take 1 tablet (200 mg) by mouth Dailyfor 10 days 10 tablet 06/10/2024 06/20/2024 Expiredlatanoprost 0.05 mg/ml ophthalmic solution (20 sources)Prostaglandin AnalogStart: 01-04-2023 End: 53-27-0383mkgn 1 drop(s) into the eye(s) in the morninglatanoprost (Xalatan) 0.005 % ophthalmic solution Administer 1 drop into both eyes in the morning. 01/04/2023 10/27/2024 Discontinued (Therapy completed)Multivitamin Tablet (3 sources)Start: 07-12-2022 End: 48-97-2056qcsu 1 tablet by mouth once daily in the morningMultivitamin Tablet Discontinued 1 TAB PO Every morning July 12, 2022 12:00am April 09, 2025 8:26amoxyCODONE hydrochloride 5 mg oral tablet (6 sources)Opioid AgonistStart: 07-26-2022 End: 08-32-0615ofpc 5-10 mg by mouth every six hours as needed for painOxycodone 5 mg tablet Discontinued 5 - 10 MG PO Q6H as needed for Pain 40 8 July 26, 20222024 8:26ampredniSONE 20 mg oral tablet (8 sources)Start: 07-12-2022 End: 64-94-7933mgmm 1 tablet by mouth once daily in the morningPrednisone 20 mg tablet Discontinued 20 MG PO Every morning July 12, 2022 12:00am April 09, 2025 8:26amStart: 51-95-5269uamriqSLLN 5 MG 1 tablet 3 times a day for 3 days, 1 tablets 2 times a day for 3 days , 1 tablet 1 times a day for 3 days Orally as directed for 9 days Jun, Activespironolactone 25 mg oral tablet (20 sources)Aldosterone AntagonistStart: 12-26-2023 End: 84-42-0888fpap 1 tablet by mouth in the morningspironolactone (Aldactone) 25 MG tablet Indications: Venous insufficiency Take 1 tablet (25 mg) by mouth in the morning and 1 tablet (25 mg) before bedtime. 180 tablet 12/26/2023 10/27/2024 Discontinued (Therapy completed)terbinafine hydrochloride 10 mg/ml topical cream (16 sources)Allylamine AntifungalStart: 06-10-2024 End: 78-12-8608gmqbaexidoi (LamISIL AT) 1 % cream Indications: Yeast dermatitis Apply topically 2 (two) times a day 28.4 g 3 06/10/2024 10/27/2024 Discontinued (Therapy completed)traMADol hydrochloride 50 mg oral tablet (9 sources)Opioid AgonistStart: 07-12-2022 End: 51-68-6401xvdv 50-100 mg by mouth three times daily as needed for pain Tramadol 50 mg tablet Discontinued 50 - 100 MG PO Three times daily as needed for Pain July 12, 2022 12:00am July 26, 2022 9:04amStart: 06-22-2022 take 1 tablet by mouth every twenty-four hourstraMADol HCl 50 MG 1 tablet as needed Orally Once a day Jun, ActiveTriamcinolone (3 sources)CorticosteroidStart: 14-95-0749XLPZNDK - 10 mg Aug, 40 mg Problems Active Problems Problem ClassificationProblemDateDocumented DateEpisodic/ChronicDisorders of lipid metabolism (20 sources)Mixed hyperlipidemia; Translations: [Mixed hyperlipidemia]Onset: 892380-41-3914RbrisgkJnpvshpvm of teeth and jaw (2 sources)Temporomandibular myqxu-lqau-regkslqypgb syndrome; Translations: [Arthralgia of temporomandibular joint, unspecified side]95-32-1737Uonewpnh Diverticulosis and diverticulitis (20 sources)Diverticulosis of large intestine; Translations: [Diverticulosis of large intestine without perforation or abscess without bleeding]Onset: 098578-48-5493ViadapiIiojavosji disorders (20 sources)Gastro-esophageal reflux disease without esophagitis; Translations: [Gastroesophageal reflux disease without esophagitis]Onset: ChronicEssential hypertension (20 sources)Essential (primary) hypertension; Translations: [Essential hypertension]Onset: 346288-94-2148LlijeqgXsmckaoknmyau symptoms and ill- defined conditions (20 sources)Nocturnal enuresis; Translations: [Nocturnal enuresis]Onset: 762594-51-3849CalvmwpKjonuruj (20 sources)Bilateral angle-closure glaucoma; Translations: [Chronic angle- closure glaucoma, bilateral, stage unspecified]Onset: ChronicHypertension with complications and secondary hypertension (20 sources)Hypertensive renal disease; Translations: [Hypertensive chronic kidney disease with stage 1 throughstage 4 chronic kidney disease, or unspecified chronic kidney disease]Onset: 109402-97-0714RqarzzaKgeiokw and fatigue (20 sources)Fatigue; Translations: [Chronic fatigue, unspecified]Onset: 007588-86-3401PbvviewQvrn disorders (20 sources)Recurrent major depression in partial remission; Translations: [Major depressive disorder, recurrent, in partial remission]Onset: 02-08-2023 61-94-3404LwnvnzcVpithmj (6 sources)Candidiasis of skin; Translations: [Candidiasis of skin and nail] 13-77-8982AbhaxeoxEisumkwkf; nephrosis; renal sclerosis (2 sources)Recurrent hematuria; Translations: [Recurrent and persistent hematuria with unspecified morphologicchanges]Onset: hronic Other acquired deformities (1 source)Spondylolisthesis, lumbosacral region; Translations: [Spondylolisthesis, lumbosacral region]Onset: 33-20-7919MtwxjrjhNbune aftercare (1 source)Other senior living (current) drug therapy; Translations: [OTH CARE HOME CURRENT DRUG THERAPY]Onset: 11-96-7847VeggekelAtnel aftercare (1 source)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; Translations: [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]Onset: 84-76-5681IlbpahkgNqach bone disease and musculoskeletal deformities (2 sources)Osteopenia; Translations: [Other specified disorders of bone density and structure, unspecified site]02-33-4123YgtkjqhmQrezq connective tissue disease (20 sources)Artificial knee joint present; Translations: [Presence of unspecified artificial knee joint]Onset: 113566-23-6045HkipkhgRrinx connective tissue disease (2 sources)History of reverse prosthetic total arthroplasty of left shoulder; Translations: [Presence of left artificial shoulder joint]Onset: 07-04-2023 33-45-2696ZscqsotKehln connective tissue disease (2 sources)History of reverse prosthetic total arthroplasty of right shoulder; Translations: [Presence of right artificial shoulder joint]70-71-4641Zojeqft Other connective tissue disease (4 sources)Pain in right foot; Translations: [PAIN IN RIGHT FOOT]Onset: 82-33-6485FeycqgmxAdjmw connective tissue disease (3 sources)Pain in right foot; Translations: [Pain in right foot]10-27-2024 EpisodicOther connective tissue disease (10 sources)Other symptoms and signs involving the musculoskeletal system; Translations: [Other musculoskeletalsymptoms referable to limbs]10-27-2024 EpisodicOther connective tissue disease (2 sources)Swelling of right lower limb; Translations: [Other specified soft tissue disorders]89-67-0016CixxlqtzMvewj nervous system disorders (6 sources)Carpal tunnel syndrome of right wrist; Translations: [Carpal tunnel syndrome, right upper limb]50-87-8886RcdpfhrNwocndt on above:Problem List clean- up per request of Phys. EHR CmteOther nervous system disorders (2 sources)Carpal tunnel syndrome, right upper limbChronicOther nervous system disorders (1 source)Carpal tunnel syndrome; Translations: [Carpal tunnel syndrome, right upper limb]82-52-5381DrkywunYwfhx nervous system disorders (20 sources)Chronic pain syndrome; Translations: [Chronic pain syndrome]Onset: 233062-74-8670NofbjxjJsvzt nervous system disorders (2 sources)Neuropathy of lower limb; Translations: [Unspecified mononeuropathy of left lower limb]Onset: 697084-84-9727HypyfnkPqojx nervous system disorders (20 sources)Lesion of ulnar nerve, left upper limb; Translations: [Lesion of ulnar nerve]Onset: 348225-30-4374VmgnkzeTyfhx nervous system disorders (2 sources)Neuropathy; Translations: [Polyneuropathy, unspecified]12-16-2024 ChronicOther nervous system disorders (1 source)Postoperative pain ; Translations: [Other acute postprocedural pain] 61-97-3708ZbnlwiseZsasq nervous system disorders (2 sources)Limping; Translations: [Other abnormalities of gait and mobility] 46-97-9180KrxtsihyBrqad nutritional; endocrine; and metabolic disorders (20 sources)Obese class I; Translations: [Obesity, unspecified]Onset: 02-08-2023 89-41-0654JamzxiyZisrd nutritional; endocrine; and metabolic disorders (20 sources)Insulin resistance; Translations: [Insulin resistance]Onset: 777249-20-1594XmolypqGuoow screening for suspected conditions (not mental disorders or infectious disease) (11 sources)Patient encounter status; Translations: [Encounter for follow-up examination after completed treatment for conditions other than malignant neoplasm]48-91-3812VxudmqtgIdvvu skin disorders (1 source)Localized swelling, mass and lump, right lower limb; Translations: [LOC SWELL MASS LUMP RT LOWER LIMB]Onset: 98-83-7779DvifnyptOvbed skin disorders (4 sources)Dystrophia unguium; Translations: [Nail dystrophy]11-46-6610Fflgmtfb Residual codes; unclassified (2 sources)Active advance directive (copy within chart) ; Translations: [Other specified health status]94-33-1314MfnqzgogWrycvcjm codes; unclassified (2 sources)Menopause present; Translations: [Asymptomatic menopausal state] 64-88-3268OzynrqlbNrraurav codes; unclassified (2 sources)Cardiovascular event risk; Translations: [Other specified personal risk factors, not elsewhere classified]57-81-0365MgwajusdYhpxucsrup arthritis and related disease (20 sources)Rheumatoid arthritis of multiple joints; Translations: [Rheumatoid arthritis, unspecified]Onset: 19-80-5240DcgzuhyCcpfwqtpncd; intervertebral disc disorders; other back problems (20 sources)Cervical spondylosis without myelopathy; Translations: [Spondylosis without myelopathy or radiculopathy, cervical region]Onset: 91-40-5363Qdkqhbs Spondylosis; intervertebral disc disorders; other back problems (11 sources)Neck pain; Translations: [Cervicalgia]Onset: EpisodicSubstance-related disorders (20 sources)Nicotine dependence, cigarettes, uncomplicated; Translations: [Smoker]Onset: 724290-33-8378QrsutqiBfjnvwjz lupus erythematosus and connective tissue disorders (20 sources)Dermatomyositis; Translations: [Dermatopolymyositis, unspecified, organ involvement unspecified]Onset: 715308-63-6262Mkdqfoi Past or Other Problems Problem ClassificationProblemDateDocumented DateEpisodic/ChronicDiabetes mellitus with complications (20 sources)Disorder of nervous system due to diabetes mellitus; 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]Onset: 02-08-2023 Resolved: 075544-25-9297MqjxhvrUxsuwghv mellitus without complication (20 sources)Prediabetes; Translations: [Abnormal glucose tolerance test]Onset: 362821-48-3798NnsyetpzTwkognhaeqfgy symptoms and ill-defined conditions (20 sources)Asymptomatic microscopic hematuria; Translations: [Asymptomatic microscopic hematuria]Onset: 080202-01-3215ZcxfttudPouh disorders (20 sources)Mood disordersOnset: 02-05-2024 Resolved: 335589-18-3166Hiyfxdyangerdn (20 sources)Primary generalized (osteo)arthritis; Translations: [Arthritis of right acromioclavicular joint]Onset: 08-19-2022 Resolved: 959206-68-0634LwygazfHnyam acquired deformities (20 sources)Spondylolisthesis; Translations: [Spondylolisthesis, cervical region]Onset: 858356-93-0776HpexgawrKqfrg acquired deformities (20 sources)Leg length inequality; Translations: [Unequal limb length (acquired), unspecified site]Onset: 096597-90-0799DyyhjsxjHmagt aftercare (1 source)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; Translations: [CARE HOME USE ORAL HYPOGLYCEMIC DX]Onset: 86-10-0470FjusnedcHbtdo aftercare (20 sources)Polypharmacy ; Translations: [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]Onset: 167501-90-1608CsectaoaPrpag connective tissue disease (20 sources)History of total knee arthroplasty; Translations: [Presence of left artificial knee joint]Onset: 02-08-2023 Resolved: 646350-09-1973EpaoudnTecsa connective tissue disease (3 sources)Other specified soft tissue disorders; Translations: [OTHER SPEC SOFT TISSUE DISORDERS]Onset: 58-26-3817TfbjnnlqQeqkm connective tissue disease (1 source)Pain in left hand; Translations: [PAIN IN LEFT HAND]Onset: 11-22-2021 EpisodicOther connective tissue disease (1 source)Pain in right hand; Translations: [PAIN IN RIGHT HAND]Onset: 55-49-8748XgpsxsaiAftak connective tissue disease (20 sources)Osteophyte of bone; Translations: [Enthesopathy, unspecified]Onset: 02-08-2023 Resolved: 143370-96-7249ZibtxdouItskj connective tissue disease (20 sources)Tear of right rotator cuff; Translations: [Unspecified rotator cuff tear or rupture of right shoulder, not specified as traumatic]Onset: 02-08-2023 Resolved: 303935-23-0092VvmppaywBjfbm connective tissue disease (20 sources)Tear of left rotator cuff; Translations: [Unspecified rotator cuff tear or rupture of left shoulder, not specified as traumatic]Onset: 02-08-2023 Resolved: 850875-68-5665QgixoixzInasn connective tissue disease (20 sources)Pain in left foot; Translations: [Pain in left foot]Onset: 566127-78-6115IddykfisHydzv diseases of veins and lymphatics (20 sources)Vascular insufficiency; Translations: [Venous insufficiency (chronic) (peripheral)]Onset: 458986-04-0323WkaxcnusHwjwi gastrointestinal disorders (20 sources)Stool DNA-based colorectal cancer screening positive; Translations: [Other fecal abnormalities]Onset: 05-23-2024 Resolved: 499249-05-3120IqphnljrBnccw nervous system disorders (20 sources)Left leg peripheral neuropathy; Translations: [Unspecified mononeuropathy of left lower limb]Onset: 02-08-2023 Resolved: 410289-17-8963XlvihnsEqlky non-traumatic joint disorders (1 source)Pain in left wrist; Translations: [PAIN IN LEFT WRIST]Onset: 31-93-6559EddwopruCvmpo non-traumatic joint disorders (1 source)Pain in right wrist; Translations: [PAIN IN RIGHT WRIST]Onset: 96-12-0029EjvociadVafeh non-traumatic joint disorders (20 sources)Pain in left shoulder; Translations: [Pain in joint, shoulder region]Onset: 07-04-2023 Resolved: 375193-30-9702OqpeoqzdAuqsngot codes; unclassified (20 sources)History of abdominal hysterectomy; Translations: [Acquired absence of both cervix and uterus]Onset: 253675-92-8055Zoukdcbr Results Test NameValueInterpretationReference RangeFacilityCBC (INCLUDES DIFF/PLT)on 41-02-2014Tyveewbdy (Bld) [#/Vol]0.052 10*3/uLNormal0-200[facility] Comment on above:Performed By: #### 079, 24469, 0383 #### [facility] [address], [address] [place] [address] Development System Efficiency Manager: Edgardo Lake MDBasophils/100 WBC (Bld)0.8 %NormalQuest DiagnosticsComment on above:Performed By: #### 809, 44910, 6399 #### [facility] of [address], [address] [place] [address] Development System Efficiency Manager: Edgardo Lake MDEosinophils (Bld) [#/Vol]0.124 10*3/uLNormal 15-500Quest DiagnosticsComment on above:Performed By: #### 809, 65611, 6399 #### [facility] of [address], [address] [place] [address] Development System Efficiency Manager: Edgardo NGosinophils/100 WBC (Bld)1.9 %NormalQuest DiagnosticsComment on above:Performed By: #### 809, 60044, 6399 #### [facility] of [place] [address] Development System Efficiency Manager: Edgardo Lake MDErythrocyte distribution width (RBC) [Ratio] 16.7 %High11.0-15.0Quest DiagnosticsComment on above:Performed By: #### 809, 23000, 6399 #### [facility] of [place] [address] Development System Efficiency Manager: Edgardo Lake MDHematocrit (Bld) [Volume fraction]35.1 %Normal 35.0-45.0Quest DiagnosticsComment on above:Performed By: #### 809, 01734, 6399 #### [facility] of [place] [address] Development System Efficiency Manager: Edgardo Lake MDHemoglobin (Bld) [Mass/Vol]11.3 g/dLLow 11.7-15.5Quest DiagnosticsComment on above:Performed By: #### 809, 76804, 6399 #### [facility] of [address], [address] [place] [address] Development System Efficiency Manager: Edgardo Lake MDLymphocytes (Bld) [#/Vol]1.905 10*3/uLNormal 850-3900Quest DiagnosticsComment on above:Performed By: #### 809, 08739, 6399 #### [facility] of [address], [address] [place] [address] Development System Efficiency Manager: Edgardo Lake MDLymphocytes/100 WBC (Bld)29.3 %NormalQuest DiagnosticsComment on above:Performed By: #### 809, 42685, 6399 #### [facility] of [address], [address] [place] [address] Development System Efficiency Manager: Edgardo Lake MDMCH (RBC) [Entitic mass]28.1 qbEkmhai15.0-33.0 [facility]osticsComment on above:Performed By: #### 809, 09298, 6399 #### [facility] of [address], [address] [place] [address] Development System Efficiency Manager: Edgardo Lake MDMCHC (RBC) [Mass/Vol]32.2 g/uILlhqtl34.0-36.0 [facility]osticsComment on above:Result Comment: For adults, a slight decrease in the calculated MCHC value (in the range of 30 to 32 g/dL) is most likely not clinically significant; however, it should be interpreted with caution in correlation with other red cell parameters and the patient's clinical condition.Performed By: #### 809, 50364, 6399 #### [facility] of [address], [address] [place] [address] Development System Efficiency Manager: Edgardo Lake MDMCV (RBC) [Entitic vol]87.3 dMUhecsy21.0-100.0 [facility]osticsComment on above:Performed By: #### 809, 00265, 6399 #### [facility] of [address], [address] [place] [address] Development System Efficiency Manager: Edgardo Lake MDMonocytes (Bld) [#/Vol]0.26 10*3/uLNormal 200-950Quest DiagnosticsComment on above:Performed By: #### 809, 80098, 6399 #### [facility] of [address], [address] [place] [address] Development System Efficiency Manager: Edgardo Lake MDMonocytes/100 WBC (Bld)4.0 %NormalQuest DiagnosticsComment on above:Performed By: #### 809, 30615, 6399 #### [facility] of [place] [address], [address] [place] [address] Development System Efficiency Manager: Edgardo Lake MDNeutrophils (Bld) [#/Vol]4.16 10*3/uLNormal 1500-7800Quest DiagnosticsComment on above:Performed By: #### 809, 10506, 6399 #### [facility] of [address], [address] [place] [address] Development System Efficiency Manager: Edgardo Lake MDNeutrophils/100 WBC (Bld)64 %NormalQuest DiagnosticsComment on above:Performed By: #### 809, 13720, 6399 #### [facility] of [address], [address] [place] [address] Development System Efficiency Manager: Edgardo Lake MDPlatelet mean volume (Bld) [Entitic vol]8.8 fL Normal7.5-12.5Quest DiagnosticsComment on above:Performed By: #### 809, 54913, 6399 #### [facility] of [address], [address] [place] [address] Development System Efficiency Manager: Edgardo Lake MDPlatelets (Bld) [#/Vol]385 10*3/uLNormal 140-400Quest DiagnosticsComment on above:Performed By: #### 809, 50143, 6399 #### [facility] of [address], [address] [place] [address] Development System Efficiency Manager: Edgardo Lake MDRBC (Bld) [#/Vol]4.02 10*6/uLNormal3.80-5.10 [facility]osticsComment on above:Performed By: #### 809, 66166, 6399 #### [facility] of [address], [address] [place] [address] Development System Efficiency Manager: Edgardo Lake MDWBC (Bld) [#/Vol]6.5 10*3/uLNormal3.8-10.8 [facility]osticsComment on above:Performed By: #### 809, 20075, 6399 #### [facility] [address] [facility], [address] [place] [address] Development System Efficiency Manager: Edgardo Lake [facility] TAHLEQUAHBC W Auto Differential panel (Bld)on 87-25-0796Wnmdxlzme (Bld) [#/Vol]52 10*3/uLNOMS HealthcareBasophils/100 WBC (Bld)0.8 %NOMS HealthcareEosinophils (Bld) [#/Vol]124 10*3/uLNOMS Healthcare Eosinophils/100 WBC (Bld)1.9 %NOMS HealthcareErythrocyte distribution width (RBC) [Ratio]16.7 %High11.0 - 15.0 %NOM HealthcareHematocrit (Bld) [Volume fraction]35.1 %35.0 - 45.0 %NOM HealthcareHemoglobin (Bld) [Mass/Vol]11.3 g/dL Low11.7 - 15.5 g/dLHEBER VALLEY MED[facility] HealthcareLymphocytes (Bld) [#/Vol]1905 10*3/uLNOMS HealthcareLymphocytes/100 WBC (Bld)29.3 %[facility] HospitalMCH (RBC) [Entitic mass] 28.1 pg27.0 - 33.0 pgNOSSM RehabHC (RBC) [Mass/Vol]32.2 g/dL32.0 - 36.0 g/dLNOKS HealthcareComment on above:For adults, a slight decrease in the calculated MCHC value (in the range of 30 to 32 g/dL) is most likely not clinically significant; however, it should be interpreted with caution in correlation with other red cell parameters and the patient's clinical condition. MCV (RBC) [Entitic vol]87.3 fL80.0 - 100.0 fLNOKS HealthcareMonocytes (Bld) [#/Vol]260 10*3/uLNOMS HealthcareMonocytes/100 WBC (Bld)4 %[facility] Neutrophils (Bld) [#/Vol]4160 10*3/uLNOMS HealthcareNeutrophils/100 WBC (Bld)64 %NOMS HealthcarePlatelet mean volume (Bld) [Entitic vol]8.8 fL7.5 - 12.5 fLNOKS HealthcarePlatelets (Bld) [#/Vol]385 10*3/uLNOKS HealthcareRBC (Bld) [#/Vol]4.02 10*6/uLHEBER VALLEY MEDICAL CENTER HealthcareWBC (Bld) [#/Vol]6.5 10*3/[facility] HealthcareCOMPREHENSIVE METABOLIC PANELon 23-53-9852Ipsfnoc [Mass/Vol]3.7 g/dLNormal3.6-5.1Quest DiagnosticsComment on above:Performed By: #### 809, 34411, 6399 #### [facility] of [place] [address] Development System Efficiency Manager: Edgardo Lake MDAlbumin/Globulin [Mass ratio]1.4 {ratio}Normal 1.0-2.5Quest DiagnosticsComment on above:Performed By: #### 809, 96512, 6399 #### [facility] of [place] [address] Development System Efficiency Manager: Edgardo Lake MDALP [Catalytic activity/Vol]124 U/LNormal 37-153Quest DiagnosticsComment on above:Performed By: #### 809, 20190, 6399 #### [facility] of [place] [address] Development System Efficiency Manager: Edgardo Lake MDALT [Catalytic activity/Vol]8 U/LNormal6-29 [facility]osticsComment on above:Performed By: #### 809, 84242, 6399 #### [facility] of [place] [address] Development System Efficiency Manager: Edgardo Lake MDAST [Catalytic activity/Vol]14 U/FEnjfby86-81 [facility]osticsComment on above:Performed By: #### 809, 20950, 6399 #### [facility] of [address] [address] Development System Efficiency Manager: Edgardo Lake MDBilirubin [Mass/Vol]0.4 mg/dLNormal0.2-1.2 [facility]osticsComment on above:Performed By: #### 809, 66264, 6399 #### [facility] of [address], [address] [place] [address] Development System Efficiency Manager: Edgardo Lake MDBUN/CREATININE RATIOSEE NOTE:Normal6-22Quest DiagnosticsComment on above:Result Comment: Not Reported: BUN and Creatinine are within reference range.Performed By: #### 809, 28285, 6399 #### [facility] of [address], [address] [place] [address] Development System Efficiency Manager: Edgardo Lake MDCalcium [Mass/Vol]9.0 mg/dLNormal8.6-10.4Quest DiagnosticsComment on above:Performed By: #### 809, 26966, 6399 #### [facility] of [address], [address] [place] [address] Development System Efficiency Manager: Edgardo Lake MDChloride [Moles/Vol]99 mmol/AAmkcne41-275Riskn DiagnosticsComment on above:Performed By: #### 809, 86340, 6399 #### [facility] of [place] [address] Development System Efficiency Manager: Edgardo Lake MDCO2 [Moles/Vol]28 mmol/MRxatjt13-82Frjts DiagnosticsComment on above:Performed By: #### 809, 49136, 6399 #### [facility] of [address], [address] [place] [address] Development System Efficiency Manager: Edgardo LEALreatinine [Mass/Vol]0.62 mg/dLNormal0.60-1.00 [facility]osticsComment on above:Performed By: #### 809, 01800, 6399 #### [facility] of [address], [address] [place] [address] Development System Efficiency Manager: Edgardo Lake MDGFR/1.73 sq M.predicted among non-blacks MDRD (S/P/Bld) [Vol rate/Area]94 mL/min/{1.73_m2}Normal> OR = 60[facility] Comment on above:Performed By: #### 809, 96985, 6399 #### [facility] [address], [address] [place] [address] Development System Efficiency Manager: Edgardo Lake MDGlobulin (S) [Mass/Vol]2.6 g/dLNormal1.9-3.7 [facility] DiagnosticsComment on above:Performed By: #### 809, 64356, 6399 #### [facility] [place] [address] Development System Efficiency Manager: Edgardo Lake MDGlucose [Mass/Vol]128 mg/lBWtqo92-06Vqwxs DiagnosticsComment on above:Result Comment: Fasting reference interval For someone without known diabetes, a glucose value >125 mg/dL indicates that they may have diabetes and this should be confirmed with a follow-up test.Performed By: #### 809, 11449, 6399 #### [facility] [place] [address] Development System Efficiency Manager: Edgardo Lake MDPotassium [Moles/Vol]3.9 mmol/LNormal3.5-5.3 [facility] DiagnosticsComment on above:Performed By: #### 809, 54772, 7699 #### [facility] [place] [address] Development System Efficiency Manager: Edgardo Lake MDProtein [Mass/Vol]6.3 g/dLNormal6.1-8.1Quest DiagnosticsComment on above:Performed By: #### 809, 59465, 5599 #### [facility] [place] [address] Development System Efficiency Manager: Edgardo Lake MDSodium [Moles/Vol]135 mmol/JJjabrs625-558Heang DiagnosticsComment on above:Performed By: #### 809, 31339, 6399 #### [facility] [address], [address] [place] [address] Development System Efficiency Manager: Edgardo Lake MDUrea nitrogen [Mass/Vol]15 mg/dLNormal7-25 [facility]osticsComment on above:Performed By: #### 809, 48638, 6399 #### [facility] [address], [address] [place] [address] Development System Efficiency Manager: Edgardo Lake [facility] TAHLEQUAHomprehensive metabolic panelon 05-27-2025 Albumin [Mass/Vol]3.7 g/dL3.6 - 5.1 g/dLNOKS HealthcareAlbumin/Globulin [Mass ratio]1.4 {ratio}[facility] HealthcareALP [Catalytic activity/Vol]124 U/L37 - 153 U/L [facility] HealthcareALT [Catalytic activity/Vol]8 U/L6 - 29 U/LNOMS HealthcareAST [Catalytic activity/Vol]14 U/L10 - 35 U/LNOMS HealthcareBilirubin [Mass/Vol]0.4 mg/dL0.2 - 1.2 mg/dLNOMS HealthcareCalcium [Mass/Vol]9 mg/dL8.6 - 10.4 mg/dLNOMS HealthcareChloride [Moles/Vol]99 mmol/L98 - 110 mmol/LNOMS HealthcareCO2 [Moles/Vol]28 mmol/L20 - 32 mmol/LNOMS HealthcareCreatinine [Mass/Vol]0.62 mg/dL 0.60 - 1.00 mg/dLNOMS HealthcareGFR/1.73 sq M.predicted among non-blacks MDRD (S/P/Bld) [Vol rate/Area]94 mL/min/{1.73_m2}> OR = 60 mL/min/1.79u4AOIG HealthcareGlobulin (S) [Mass/Vol]2.6 g/dLNOMS HealthcareGlucose [Mass/Vol]128 mg/cOCogw81 - 99 mg/dLNOMS HealthcareComment on above: Fasting reference interval For someone without known diabetes, a glucose value >125 mg/dL indicates that they may have diabetes and this should be confirmed with a follow-up test. Potassium [Moles/Vol]3.9 mmol/L3.5 - 5.3 mmol/LNOMS HealthcareProtein [Mass/Vol] 6.3 g/dL6.1 - 8.1 g/dLNOKS HealthcareSodium [Moles/Vol]135 mmol/L135 - 146 mmol/LNOMS HealthcareUrea nitrogen [Mass/Vol]15 mg/dL7 - 25 mg/dLNOMS Healthcare Urea nitrogen/Creatinine [Mass ratio]SEE NOTE:NOMS HealthcareComment on above: Not Reported: BUN and Creatinine are within reference range. No Panel Informationon 65-48-1680Mbdbbdehtvfdid and review of laboratory results AbnormalNOKS HealthcarePerforming Organization Information Site ID: QPT Name: [facility] Address: [address] [place] [address], [address] [place] [address] Director: Edgardo Lake MDEllis Fischel [facility] Center HealthcareSED RATE BY MODIFIED WESTERGRENon 84-70-7840PBS RATE BY MODIFIED GMDPHQIHOE47 mm/hNormal< OR = 30 [facility] DiagnosticsComment on above:Performed By: #### 809, 83284, 6399 #### [facility] [address], [address] [place], [place] [address] Development System Efficiency Manager: Edgardo Lake MDSedimentation rate, automatedon 70-57-8441OFA (Bld) [Velocity]22 mm/h< OR = 30NOKS HealthcareX-ray reportOrdered By: Guido Salcedo on 76-45-7576Eupwb reportCLEVELAND CLIN[facility] [place] [address] XRay Report Signed Patient: Disha De La Garza MR#: [id number] : 1950 Acct:[id number] Age/Sex: 75 / F ADM Date: 5 Loc: XD Room: Type: [facility] Attending Dr: Willie Garcia MD Copies to: Willie Garcia MD~ Ordering Provider: Willie Garcia MD Date of Service: 04/09/25 XR/XR lumbar spine 6V w bending: M48.061 - Spinal stenosis, lumbar region without neurogen... 6 views Lumbar Spinewith bending HISTORY: Low back pain with relation on the right leg COMPARISON: MRI lumbar spine 02/27/2025 POSTSURGICAL CHANGES: None BONY ALIGNMENT: Straightening of lumbar lordosis. Mild scoliosis HYPERMOBILITY:No hypermobility LISTHESIS:Mild listhesis FRACTURE: None DEGENERATIVE CHANGES: Extensive multilevel spondylosis/hyperostosis. Extensive lower lumbar facet degeneration SOFT TISSUES: Atherosclerosis BONY MINERALIZATION:Adequate XR/XR lumbar spine 6V w bending IMPRESSION: No hypermobility. Extensive degeneration greatest in the lower lumbar facets. Impression dictated by: Guido Salcedo M.D. 04/09/2025 4:52 PM Dictation Location: RADIO-PC-20 Transcribed By: PWS 04/09/25 165 Dictated By: Guido Salcedo DO 04/09/25 164 Signed By: 04/09/251651 [facility] Hospitaltudy reportCLEVELAND CLINIC [facility] Main [place] [address] [place] [address] XRay Report Signed Patient: Disha De La Garza MR#: [id number] : 1950 Acct:[id number] Age/Sex: 75 / F ADM Date: 5 Loc: XD Room: Type: [facility] Attending Dr: Willie Garcia MD Copies to: Willie Garcia MD~ Ordering Provider: Willie Garcia MD Date of Service: 04/09/25 XR/XR pelvis 1-2V: M48.061 - Spinal stenosis, lumbar region without neurogen... 2 views pelvis plain film HISTORY: Low back pain with radiation of the right leg COMPARISON: None ACUTE FINDINGS: None BONY ALIGNMENT: Adequate SOFT TISSUES: Atherosclerosis DEGENERATIVE CHANGE:Extensive lumbar degenerative changes. Moderate SI joint degeneration. Bilateral hip degeneration INTRAPELVIC STRUCTURES: Unremarkable POSTSURGICAL CHANGES:None XR/XR pelvis 1-2V IMPRESSION:Degenerative change Impression dictated by: Guido Salcedo M.D. 04/09/2025 3:15 PM Dictation Location: RADIO-PC-20 Transcribed By: PWS 04/09/25 1515 Dictated By: Guido Salcedo DO 04/09/25 1513 Signed By: 04/09/25 151 [facility] CenterXR lumbar spine 6V w bendingon 79-02-0984YB lumbar spine 6V w bendingCLEVELAND CLIN[facility] Main [place] [address] [place] [address] XRay Report Signed Patient: Disha De La Garza MR#: [id number] : 1950 Acct:[id number] Age/Sex: 75 / F ADM Date: 04/09/25 Loc: XD Room: Type: REG CLI Attending Dr: Willie Garcia MD Copies to: Willie Garcia MD Ordering Provider: Willie Garcia MD Date of Service: 04/09/25 XR/XR lumbar spine 6V w bending: M48.061 - Spinal stenosis, lumbar region without neurogen... 6 views Lumbar Spinewith bending HISTORY: Low back pain with relation on the right leg COMPARISON: MRI lumbar spine 02/27/2025 POSTSURGICAL CHANGES: None BONY ALIGNMENT: Straightening of lumbar lordosis. Mild scoliosis HYPERMOBILITY:No hypermobility LISTHESIS:Mild listhesis FRACTURE: None DEGENERATIVE CHANGES: Extensive multilevel spondylosis/hyperostosis. Extensive lower lumbar facet degeneration SOFT TISSUES: Atherosclerosis BONY MINERALIZATION:Adequate XR/XR lumbar spine 6V w bending IMPRESSION: No hypermobility. Extensive degeneration greatest in the lower lumbar facets. Impression dictated by: Guido Salcedo M.D. 04/09/2025 4:52 PM Dictation Location: [place] [address] Transcribed By: [facility] 04/09/25 1652 Dictated By: Guido Salcedo DO 04/09/25 1649 Signed By: 04/09/25 [facility] Physician GroupXR pelvis 1-2Von 18-79-0473DE pelvis 1-2VCLEVELAND CLINIC [facility] Main [place] [address] [place] [address] XRay Report Signed Patient: Disha De La Garza MR#: [id number] : 1950 Acct:[id number] Age/Sex: 75 / F ADM Date: 04/09/25 Loc: XD Room: Type: REG CLI Attending Dr: Willie Garcia MD Copies to: Willie Garcia MD Ordering Provider: Willie Garcia MD Date of Service: 04/09/25 XR/XR pelvis 1-2V: M48.061 - Spinal stenosis, lumbar region without neurogen... 2 views pelvis plain film HISTORY: Low back pain with radiation of the right leg COMPARISON: None ACUTE FINDINGS: None BONY ALIGNMENT: Adequate SOFT TISSUES: Atherosclerosis DEGENERATIVE CHANGE:Extensive lumbar degenerative changes. Moderate SI joint degeneration. Bilateral hip degeneration INTRAPELVIC STRUCTURES: Unremarkable POSTSURGICAL CHANGES:None XR/XR pelvis 1-2V IMPRESSION:Degenerative change Impression dictated by: Guido Salcedo M.D. 04/09/2025 3:15 PM Dictation Location: [place] [address] Transcribed By: [facility] 04/09/25 151 Dictated By: Guido Salcedo DO 04/09/251512 Signed By: 04/09/25 [facility] TOMOSYNTHESIS SCREENING BIon 81-87-[place] [address] Mammography Report Signed Patient: DISHA DE LA GARZA MR#: [id number] : 1950 Acct:[id number] Age/Sex: 74 / F ADM Date: 02/27/25 Loc: MAMMO Attending Dr: WILL TIM Ordering Physician: WILL TIM Results: Date of Service: 02/27/25 Follow Up: Procedure(s): MM tomosynthesis screening BI Accession Number(s): [id number] cc: WILL TIM Patient Name: DISHA DE LA GARZA MR#: [id number] : 1950 Exam Date: 02/27/2025 Ordering Doctor: [...] throat cancer at age 77. LOCATION: [facility] BREAST COMPOSITION: The breasts are almost [...] Signed By: 02/27/25 1438 DD/ 1437 TD/TT: Overlock Operator:TBHRadiology, Radiologist, - 02/27/2025 [place] [address] Mammography Report Signed Patient: DISHA DE LA GARZA MR#: [id number] : 1950 Acct:[id number] Age/Sex: 74 / F ADM Date: 02/27/25 Loc: MAMMO Attending Dr: WILL TIM Ordering Physician: WILL TIM Results: Date of Service: 02/27/25 Follow Up: Procedure(s): MM tomosynthesis screening BI Accession Number(s): [id number] cc: WILL TIM Patient Name: DISHA DE LA GARZA MR#: [id number] : 1950 Exam Date: 02/27/2025 Ordering Doctor: [...] throat cancer at age 77. LOCATION: [facility] BREAST COMPOSITION: The breasts are almost [...] Signed By: 02/27/25 1438 DD/ 36 TD/TT: Overlock Operator: LETI [facility] HealthRadiology Study observation (narrative)[facility] TOMOSYNTHESIS SCREENING BIOrdered By: Radiologist Radiology on 85-66-1905VHGL [employer] Work Phone: LUMBAR SPINE WO CONon [phone], [place] [address] Magnetic Resonance Report Signed Patient: DISHA DE LA GARZA MR#: [id number] : 1950 Acct:[id number] Age/Sex: 74 / F ADM Date: 02/27/25 Loc: MRI Attending Dr: Quin Hernandez NP Ordering Physician: Quin Hernandez NP Date of Service: 02/27/25 Procedure(s): MR lumbar spine wo con Accession Number(s): [id number] cc: Quin Hernandez NP; WILL TIM [place] [address] Patient Name: DISHA DE LA GARZA MRN: [facility]:[id number] date: 1950 Sex: F Assigned Patient Location: MRI Current Patient Location: MRI Accession/Order Number: [id number] Exam Date: 02/27/2025 15:30 Report Date: 02/27/2025 [...] Salcedo M.D. 02/27/2025 3:36 PM Dictation Location: [place] [address] Electronically authenticated by: [id number] Y Date: 02/27/2025 15:36 Dictated By: Guido Salcedo D.O. Signed By: 02/27/25 1539 DD/ 1536 TD/TT: Overlock Operator:TBHRadiology, Radiologist, MD - 02/27/2025 [place] [address] Magnetic Resonance Report Signed Patient: DISHA DE LA GARZA MR#: [id number] : 1950 Acct:[id number] Age/Sex: 74 / F ADM Date: 02/27/25 Loc: MRI Attending Dr: Quin Hernandez NP Ordering Physician: Quin Hernandez NP Date of Service: 02/27/25 Procedure(s): MR lumbar spine wo con Accession Number(s): [id number] cc: Quin Hernandez NP; WILL TIM [place] [address] Patient Name: DISHA DE LA GARZA MRN: [id number] date: 1950 Sex: F Assigned Patient Location: MRI Current Patient Location: MRI Accession/Order Number: [id number] Exam Date: 02/27/2025 15:30 Report Date: 02/27/2025 [...] Salcedo M.D. 02/27/2025 3:36 PM Dictation Location: [place] [address] Electronically authenticated by: [id number] Y Date: 02/27/2025 15:36 Dictated By: Guido Salcedo D.O. Signed By: 02/27/25 1539 DD/ 1536 TD/TT: Overlock Operator: LETI HealthcareRadiology Study observation (narrative)[facility]MR LUMBAR SPINE WO CONOrdered By: Radiologist Radiology on [id number] [employer] Work Phone: aLBUMIN, RANDOM URINE W/CREATININEon 02-14-2025 ALBUMIN, URINE3.7 mg/dLNormalSee Note:[facility] DiagnosticsComment on above:Result Comment: Reference Range: Reference Range Not establishedPerformed By: #### 6517, 496 #### [facility] [address], [address] [place] [address] Development System Efficiency Manager: Edgardo Lake MDALBUMIN/CREATININE RATIO, RANDOM PMGBL079 mg/g creatHigh<30Quest DiagnosticsComment on above:Result Comment: The ADA defines abnormalities in albumin excretion as follows: Albuminuria Category Result (mg/g creatinine) Normal to Mildly increased <30 Moderately increased 30-299 Severely increased > OR = 300 The ADA recommends that at least two of three specimens collected within a 3-6 month period be abnormal before considering a patient to be within a diagnostic category.Performed By: #### 6517, 496 #### [facility] [address], [address] [place] [address] Development System Efficiency Manager: Edgardo Lake MDCreatinine (U) [Mass/Vol]24 mg/tZPsbbis89-024 Quest DiagnosticsComment on above:Performed By: #### 6517, 496 #### [facility] [address], [address] [place] [address] Development System Efficiency Manager: Edgardo Lake MDHEMOGLOBIN A1con 40-07-6882FnU6q (Bld) [Mass fraction]5.6 %Normal<5.7Quest DiagnosticsComment on above:Result Comment: For the purpose of screening for the presence of diabetes: <5.7% Consistent with the absence of diabetes 5.7-6.4% Consistent with increased risk for diabetes (prediabetes) > or =6.5% Consistent with diabetes This assay result is consistent with a decreased risk of diabetes. Currently, no consensus exists regarding use of hemoglobin A1c for diagnosis of diabetes in children. According to [place] [employer] (ADA) guidelines, hemoglobin A1c <7.0% represents optimal control in non- diabetic patients. Different metrics may apply to specific patient populations. Standards of Medical Care in Diabetes(ADA).Performed By: #### 6517, 496 #### [facility] [address], [address] [place] [address] Development System Efficiency Manager: Edgardo Lake MDLaboratory - Hematology and Cell countson 85-25-9934SqB8x (Bld) [Mass fraction]5.6 %NINF - 5.7 %NOM HealthcareComment on above:For the purpose of screening for the presence of diabetes: <5.7% Consistent with the absence of diabetes 5.7-6.4% Consistent with increased risk for diabetes (prediabetes) > or =6.5% Consistent with diabetes This assay result is consistent with a decreased risk of diabetes. Currently, no consensus exists regarding use of hemoglobin A1c for diagnosis of diabetes in children. According to [place] [employer] (ADA) guidelines, hemoglobin A1c <7.0% represents optimal control in non- diabetic patients. Different metrics may apply to specific patient populations. Standards of Medical Care in Diabetes(ADA). Microalbumin/Creatinine ratio panel (U)on 53-77-9125Fcurqup DL <= 20 mg/L (U) [Mass/Vol]3.7 mg/dLSee Note:[facility] HealthcareComment on above:Reference Range: Reference Range Not established Albumin/Creatinine (U) [Mass ratio]154HighNINFNOMS HealthcareComment on above: The ADA defines abnormalities in albumin excretion as follows: Albuminuria Category Result (mg/g creatinine) Normal to Mildly increased <30 Moderately increased 30-299 Severely increased > OR = 300 The ADA recommends that at least two of three specimens collected within a 3-6 month period be abnormal before considering a patient to be within a diagnostic category. Creatinine (U) [Mass/Vol]24 mg/dL20 - 275 mg/dLNOKS HealthcareInterpretation and review of laboratory resultsAbPrisma Health [facility] Informationon 62-83-8184Nkqwadtgnw Organization Information Site ID: QPT Name: [facility] [address] Address: [address] [place] [address], [address] [place] [address] Director: Edgardo Lake MDAtrium Health ProvidenceCBC (INCLUDES DIFF/PLT) on 67-51-2121JDIKDHRV BAND NEUTROPHILSNormalQuest DiagnosticsComment on above: Performed By: #### 6399, 34081, 809 #### [facility] of [address], [address] [place] [address] Development System Efficiency Manager: Edgardo DAVIS BASOPHILSNormalQuest [facility] Comment on above:Performed By: #### 6399, 31558, 809 #### [facility] of [address], [address] [place] [address] Development System Efficiency Manager: Edgardo DAVIS BLASTSNormalQuest DiagnosticsComment on above:Performed By: #### 6399, 47708, 809 #### [facility] of [address], [address] [place] [address] Development System Efficiency Manager: Edgardo DAVIS EOSINOPHILSNormalQuest Diagn[facility] Comment on above:Performed By: #### 6399, 61173, 809 #### [facility] of [address], [address] [place] [address] Development System Efficiency Manager: Edgardo TALLEYOLCINTHYA LYMPHOCYTESNormalQuest [facility]ostics Comment on above:Performed By: #### 6399, 56637, 809 #### [facility] of [address], [address] [place] [address] Development System Efficiency Manager: Edgardo DAVIS METAMYELOCYTESNormalQuest [facility] Comment on above:Performed By: #### 6399, 16909, 809 #### [facility] of [address], [address] [place] [address] Development System Efficiency Manager: Edgardo DAVIS MONOCYTESNormalQuest [facility] Comment on above:Performed By: #### 6399, 39465, 809 #### [facility] of [place] [address], [address] [place] [address] Development System Efficiency Manager: Edgardo DAVIS MYELOCYTESNormalQuest [facility] Comment on above:Performed By: #### 6399, 33385, 809 #### [facility] of [place] [address] , [address] [place] [address] Development System Efficiency Manager: Edgardo DAVIS NEUTROPHILSNormalQuest [facility] Comment on above:Performed By: #### 6399, 97954, 809 #### [facility] of [address] , [address] [place] [address] Development System Efficiency Manager: Edgardo DAVIS NUCLEATED RBCNormalQuest [facility] Comment on above:Performed By: #### 6399, 92753, 809 #### [facility] of [place] [address] , [address] [place] [address] Development System Efficiency Manager: Edgardo DAVIS PROMYELOCYTESNormal[facility] Comment on above:Performed By: #### 6399, 60773, 809 #### [facility] of [address] [place] [address] Development System Efficiency Manager: Edgardo W[place] NEUTROPHILSNormalQuest DiagnosticsComment on above:Performed By: #### 6399, 17985, 809 #### [facility] of [place] [address] , [address] [place] [address] Development System Efficiency Manager: Edgardo Lake MDBASOPHILSNormalQuest DiagnosticsComment on above:Performed By: #### 6399, 21150, 809 #### [facility] of [place] [address] [place] [address] Development System Efficiency Manager: Edgardo Lake MDBLASTSNormalQuest DiagnosticsComment on above: Performed By: #### 6399, 19384, 809 #### [facility] of [place] [address], [address] [place] [address] Development System Efficiency Manager: Edgardo Lake MDCOMMENT(S)NormalQuest DiagnosticsComment on above:Performed By: #### 6399, 02751, 809 #### [facility] of [place] [address] , [address] [place] [address] Development System Efficiency Manager: Edgardo Lake MDEOSINOPHILSNormalQuest DiagnosticsComment on above:Performed By: #### 6399, 41692, 809 #### [facility] of [place] [address], [address] [place] [address] Development System Efficiency Manager: Edgardo Lake MDHEMATOCRITNormalQuest DiagnosticsComment on above:Performed By: #### 6399, 16819, 809 #### [facility] of [place] [address] , [address] [place] [address] Development System Efficiency Manager: Edgardo Lake MDHEMOGLOBINNormalQuest DiagnosticsComment on above:Performed By: #### 6399, 34986, 809 #### [facility] of [place] [address], [address] [place] [address] Development System Efficiency Manager: Edgardo Lake MDLYMPHOCYTESNormalQuest DiagnosticsComment on above:Performed By: #### 6399, 54930, 809 #### [facility] of [place] [address], [address] [place] [address] Development System Efficiency Manager: Edgardo Lake MDMCHNormalQuest DiagnosticsComment on above: Performed By: #### 6399, 93592, 809 #### [facility] of [place] [address], [address] [place] [address] Development System Efficiency Manager: Edgardo Lake MDMCHCNormalQuest DiagnosticsComment on above: Performed By: #### 6399, 27096, 809 #### [facility] of [place] [address], [address] [place] [address] Development System Efficiency Manager: Edgardo Lake MDMCVNormalQuest DiagnosticsComment on above: Performed By: #### 6399, 60722, 809 #### [facility] [address], [address] [place] [address] Development System Efficiency Manager: Edgardo ARAMBULAETAMYELOCYTESNormalQuest DiagnosticsComment on above:Performed By: #### 6399, 94620, 809 #### [facility] [address], [address] [place] [address] Development System Efficiency Manager: Edgardo ARAMBULAONOCYTESNormalQuest DiagnosticsComment on above:Performed By: #### 6399, 39028, 809 #### [facility] of [place] [address], [address] [place] [address] Development System Efficiency Manager: Edgardo Lake MDMPVNormalQuest DiagnosticsComment on above: Performed By: #### 6399, 50632, 809 #### [facility] of [place] [address], [address] [place] [address] Development System Efficiency Manager: Edgardo Lake MDMYELOCYTESNormalQuest DiagnosticsComment on above:Performed By: #### 6399, 73757, 809 #### [facility] of [place] [address], [address] [place] [address] Development System Efficiency Manager: Edgardo Lake MDNEUTROPHILSNormalQuest DiagnosticsComment on above:Performed By: #### 6399, 59450, 809 #### [facility] of [place] [address], [address] [place] [address] Development System Efficiency Manager: Edgardo Lake MDNUCLEATED RBCNormalQuest DiagnosticsComment on above:Performed By: #### 6399, 59313, 809 #### [facility] of [place] [address], [address] [place] [address] Development System Efficiency Manager: Edgardo Lake MDPLATELET COUNTNormalQuest DiagnosticsComment on above:Performed By: #### 6399, 06458, 809 #### [facility] of [place] [address], [address] [place] [address] Development System Efficiency Manager: Edgardo Lake MDPROMYELOCYTESNormalQuest DiagnosticsComment on above:Performed By: #### 6399, 20668, 809 #### [facility] of [place] [address] Development System Efficiency Manager: Edgardo Lake MDRDWNormalQuest DiagnosticsComment on above: Performed By: #### 6399, 65456, 809 #### [facility] of [place] [address] Development System Efficiency Manager: Edgardo Lake MDREACTIVE LYMPHOCYTESNormal[facility] Comment on above:Performed By: #### 6399, 31296, 809 #### [facility] of [place] [address] Development System Efficiency Manager: Edgardo PADGETTED BLOOD CELL COUNTNormalQuest [facility]ostics Comment on above:Performed By: #### 6399, 43202, 809 #### [facility] of [place] [address] Development System Efficiency Manager: Edgardo Lake MDWHITE BLOOD CELL COUNTNormalQuest [facility] Comment on above:Performed By: #### 6399, 47099, 809 #### [facility] of [place] [address] Development System Efficiency Manager: Edgardo Lake MDCOMPREHENSIVE METABOLIC PANELon 01-09-2025 Albumin [Mass/Vol]3.9 g/dLNormal3.6-5.1Quest DiagnosticsComment on above: Performed By: #### 6399, 11589, 809 #### [facility] of [place] [address] Development System Efficiency Manager: Edgardo Lake MDAlbumin/Globulin [Mass ratio]1.6 {ratio}Normal 1.0-2.5Quest DiagnosticsComment on above:Performed By: #### 6399, 81381, 809 #### [facility] of [place] [address] Development System Efficiency Manager: Edgardo Lake MDALP [Catalytic activity/Vol]140 U/LNormal 37-153Quest DiagnosticsComment on above:Performed By: #### 6399, 02846, 809 #### [facility] of [place] [address] Development System Efficiency Manager: Edgardo Lake MDALT [Catalytic activity/Vol]8 U/LNormal6-29 [facility] DiagnosticsComment on above:Performed By: #### 6399, 46531, 809 #### [facility] of [place] [address] Development System Efficiency Manager: Edgardo Lake MDAST [Catalytic activity/Vol]13 U/TJtgyxi86-52 [facility] DiagnosticsComment on above:Performed By: #### 6399, 84338, 809 #### [facility] of [place] [address] Development System Efficiency Manager: Edgardo Lake MDBilirubin [Mass/Vol]0.4 mg/dLNormal0.2-1.2 Quest DiagnosticsComment on above:Performed By: #### 6399, 91694, 809 #### [facility] of [place] [address] Development System Efficiency Manager: Edgardo Lake MDCalcium [Mass/Vol]9.1 mg/dLNormal8.6-10.4Quest DiagnosticsComment on above:Performed By: #### 6399, 65852, 809 #### [facility] of [place] [address] Development System Efficiency Manager: Edgardo Lake MDChloride [Moles/Vol]103 mmol/SSqiymw91-067 [facility] DiagnosticsComment on above:Performed By: #### 6399, 23623, 809 #### [facility] of [place] [address] Development System Efficiency Manager: Edgardo Lake MDCO2 [Moles/Vol]26 mmol/SKrcvsa05-32Jymkx DiagnosticsComment on above:Performed By: #### 6399, 68412, 809 #### [facility] [place] [address] Development System Efficiency Manager: Edgardo LEALreatinine [Mass/Vol]0.56 mg/dLLow0.60-1.00 [facility] DiagnosticsComment on above:Performed By: #### 6399, 59728, 809 #### [facility] [place] [address] Development System Efficiency Manager: Edgardo Lake MDGFR/1.73 sq M.predicted among non-blacks MDRD (S/P/Bld) [Vol rate/Area]97 mL/min/{1.73_m2}Normal> OR = 60[facility] Comment on above:Performed By: #### 6399, 94217, 809 #### [facility] [place] [address] Development System Efficiency Manager: Edgardo Lake MDGlobulin (S) [Mass/Vol]2.5 g/dLNormal1.9-3.7 [facility] DiagnosticsComment on above:Performed By: #### 6399, 25009, 809 #### [facility] [place] [address] Development System Efficiency Manager: Edgardo Lake MDGlucose [Mass/Vol]109 mg/hVSevv45-86Rqkrn DiagnosticsComment on above:Result Comment: Fasting reference interval For someone without known diabetes, a glucose value between 100 and 125 mg/dL is consistent with prediabetes and should be confirmed with a follow-up test.Performed By: #### 6399, 20069, 809 #### [facility] [place] [address] Development System Efficiency Manager: Edgardo Lake MDPotassium [Moles/Vol]4.0 mmol/LNormal3.5-5.3 Quest DiagnosticsComment on above:Performed By: #### 6399, 25749, 809 #### [facility] [address] [place] [address] Development System Efficiency Manager: Edgardo Lake MDProtein [Mass/Vol]6.4 g/dLNormal6.1-8.1Quest DiagnosticsComment on above:Performed By: #### 6399, 81659, 809 #### [facility] of [address], [address] [place] [address] Development System Efficiency Manager: Edgardo Lkae MDSodium [Moles/Vol]138 mmol/YAiuiji634-489Smxow DiagnosticsComment on above:Performed By: #### 6399, 25975, 809 #### [facility] of [place] [address] Development System Efficiency Manager: Edgardo Lake MDUrea nitrogen [Mass/Vol]12 mg/dLNormal7-25 [facility] DiagnosticsComment on above:Performed By: #### 6399, 39560, 809 #### [facility] of [address], [address] [place] [address] Development System Efficiency Manager: Edgardo Lake MDUrea nitrogen/Creatinine [Mass ratio]21 mg/mg Normal6-22Quest DiagnosticsComment on above:Performed By: #### 6399, 99899, 809 #### [facility] of [place] [address] Development System Efficiency Manager: Edgardo Lake MDSED RATE BY MODIFIED WESTERGRENon 01-09-2025 SED RATE BY MODIFIED WESTERGRENNormalQuest DiagnosticsComment on above:Performed By: #### 6399, 43025, 809 #### [facility] of [place] [address] Development System Efficiency Manager: Edgardo Lake MDC-REACTIVE PROTEINon 08-59-4696YDJ [Mass/Vol] 4.5 mg/LNormal<8.0Quest DiagnosticsComment on above:Result Comment: Your request to have a duplicate copy faxed has been acknowledged. Queued to: [id number] By: #### 809, 79671, 6399 #### [facility] of [address], [address] Development System Efficiency Manager: Edgardo Lake MDCBC (INCLUDES DIFF/PLT)on 10-63-4598Angntmmnw (Bld) [#/Vol]0.033 10*3/uLNormal0-200Quest DiagnosticsComment on above:Performed By: #### 5463, 34910, 6399 #### [facility] [address] [place] [address] Development System Efficiency Manager: Caroline Howard #### 4420 #### [facility] [place] [address] [address] , [address] [place], [place] [phone] Development System Efficiency Manager: Edgardo Lake MDBasophils/100 WBC (Bld)0.3 %NormalQuest DiagnosticsComment on above:Performed By: #### 5463, 64687, 6399 #### [facility] [address] [place], [place] [address] Development System Efficiency Manager: Caroline Howard #### 4420 #### [facility] [place] [address] [address] , [address] [place] [address] Development System Efficiency Manager: Edgardo Lake MDEosinophils (Bld) [#/Vol]0.231 10*3/uLNormal 15-500Quest DiagnosticsComment on above:Performed By: #### 5463, 11513, 6399 #### [facility] [address] [place] [address] Development System Efficiency Manager: Caroline Howard #### 4420 #### [facility] [place] [address] [address] , [address] [place], [place] [phone] Development System Efficiency Manager: Edgardo Lake MDEosinophils/100 WBC (Bld)2.1 %NormalQuest DiagnosticsComment on above:Performed By: #### 5463, 18528, 6399 #### [facility] [address] [place] [address] Development System Efficiency Manager: Caroline Howard #### 4420 #### [facility] [address], [address] [place] [address] Development System Efficiency Manager: Edgardo Lake MDErythrocyte distribution width (RBC) [Ratio] 17.1 %High11.0-15.0Quest DiagnosticsComment on above:Performed By: #### 5463, 31357, 6399 #### [facility] [address] [place], [place] [address] Development System Efficiency Manager: Caroline Howard #### 4420 #### [facility] [address], [address] [place] [address] Development System Efficiency Manager: Edgardo Lake MDHematocrit (Bld) [Volume fraction]38.0 %Normal 35.0-45.0Quest DiagnosticsComment on above:Performed By: #### 5463, 45864, 6399 #### [facility] [address] [place] [address] Development System Efficiency Manager: Caroline Howard #### 4420 #### [facility] [address], [address] [place] [address] Development System Efficiency Manager: Edgardo Lake MDHemoglobin (Bld) [Mass/Vol]12.5 g/dLNormal 11.7-15.5Quest DiagnosticsComment on above:Performed By: #### 5463, 40939, 6399 #### [facility] [address] [place] [address] Development System Efficiency Manager: Caroline Howard #### 4420 #### [facility] [address], [address] [place] [address] Development System Efficiency Manager: Edgardo Lake MDLymphocytes (Bld) [#/Vol]2.255 10*3/uLNormal 850-3900Quest DiagnosticsComment on above:Performed By: #### 5463, 88241, 6399 #### [facility] [address] [place] [address] Development System Efficiency Manager: Caroline Howard #### 4420 #### [facility] [address], [address] [place], [place] [phone] Development System Efficiency Manager: Edgardo Lake MDLymphocytes/100 WBC (Bld)20.5 %NormalQuest DiagnosticsComment on above:Performed By: #### 5463, 30231, 6399 #### [facility] [place] [address] Development System Efficiency Manager: Caroline Howard #### 4420 #### [facility] [address], [address] [place], [place] [phone] Development System Efficiency Manager: Edgardo Lake MDMCH (RBC) [Entitic mass]29.2 nfXuesvv28.0-33.0 Quest DiagnosticsComment on above:Performed By: #### 5463, 28215, 6399 #### [facility] [place] [address] Development System Efficiency Manager: Caroline Howard #### 4420 #### [facility] [address], [address] [place] [address] Development System Efficiency Manager: Edgardo Lake MDMCHC (RBC) [Mass/Vol]32.9 g/bHTzvmtt16.0-36.0 Quest DiagnosticsComment on above:Performed By: #### 5463, 18667, 6399 #### [facility] [phone] Development System Efficiency Manager: Caroline Howard #### 4420 #### [facility] [address], [address] [place] [address] Development System Efficiency Manager: Edgardo Lake MDMCV (RBC) [Entitic vol]88.8 gGQoviem65.0-100.0 Quest DiagnosticsComment on above:Performed By: #### 5463, 53348, 6399 #### [facility] [address] [place], [place] [address] Development System Efficiency Manager: Caroline Howard #### 4420 #### [facility] [address], [address] [place] [address] Development System Efficiency Manager: Edgardo Lake MDMonocytes (Bld) [#/Vol]0.638 10*3/uLNormal 200-950Quest DiagnosticsComment on above:Performed By: #### 5463, 16225, 6399 #### [facility] [address] [place] [address] Development System Efficiency Manager: Caroline Howard #### 4420 #### [facility] [address], [address] [place] [address] Development System Efficiency Manager: Edgardo Lake MDMonocytes/100 WBC (Bld)5.8 %NormalQuest DiagnosticsComment on above:Performed By: #### 5463, 97788, 6399 #### [facility] [address] [place] [address] Development System Efficiency Manager: Caroline Howard #### 4420 #### [facility] [place] [address], [address] [place] [address] Development System Efficiency Manager: Edgardo Lake MDNeutrophils (Bld) [#/Vol]7.843 10*3/uLHigh 1500-7800Quest DiagnosticsComment on above:Performed By: #### 5463, 27637, 6399 #### [facility] [address] [place] [address] Development System Efficiency Manager: Caroline Howard #### 4420 #### [facility] [address], [address] [place] [address] Development System Efficiency Manager: Edgardo Lake MDNeutrophils/100 WBC (Bld)71.3 %NormalQuest DiagnosticsComment on above:Performed By: #### 5463, 61726, 6399 #### [facility] [address] [place] [address] Development System Efficiency Manager: Caroline Howard #### 4420 #### [facility] [address], [address] [place] [address] Development System Efficiency Manager: Edgardo Merati MDPlatelet mean volume (Bld) [Entitic vol]8.3 fL Normal7.5-12.5Quest DiagnosticsComment on above:Performed By: #### 5463, 39217, 6399 #### [facility] [address] [place] [address] Development System Efficiency Manager: Caroline Howard #### 4420 #### [facility] [place] [address], [address] [place] [address] Development System Efficiency Manager: Edgardo Lake [facility] (Bld) [#/Vol]455 10*3/dPDbvi245-709 Quest DiagnosticsComment on above:Performed By: #### 5463, 71461, 6399 #### [facility] [address] [place] [address] Development System Efficiency Manager: Caroline Howard #### 4420 #### [facility] [place] [address] , [address] [place], [place] [phone] Development System Efficiency Manager: Edgardo Lake [facility] (Bld) [#/Vol]4.28 10*6/uLNormal3.80-5.10 Quest DiagnosticsComment on above:Performed By: #### 5463, 22274, 6399 #### [facility] [address] [place] [address] Development System Efficiency Manager: Caroline Howard #### 4420 #### [facility] [place] [address] , [address] [place] [address] Development System Efficiency Manager: Edgardo Lake [facility] (Bld) [#/Vol]11.0 10*3/uLHigh3.8-10.8Quest DiagnosticsComment on above:Performed By: #### 5463, 80716, 6399 #### [facility] [address] [place], [place] [address] Development System Efficiency Manager: Caroline Howard #### 4420 #### [facility] [place] [address] , [address] [place], [place] [phone] Development System Efficiency Manager: Edgardo Lake MDCOMPREHENSIVE METABOLIC PANELon 06-10-2024 Albumin [Mass/Vol]4.1 g/dLNormal3.6-5.1Quest DiagnosticsComment on above:Order Comment: FASTING:NO FASTING: NOPerformed By: #### 5463, 65512, 6399 #### [facility] [address] [place] [address] Development System Efficiency Manager: Caroline Howard #### 4420 #### [facility] [address], [address] [place], [place] [phone] Development System Efficiency Manager: Edgardo Lake MDAlbumin/Globulin [Mass ratio]1.5 {ratio}Normal 1.0-2.5Quest DiagnosticsComment on above:Order Comment: FASTING:NO FASTING: NOPerformed By: #### 5463, 92493, 6399 #### [facility] [address] [place] [address] Development System Efficiency Manager: Caroline Howard #### 4420 #### [facility] [address], [address] [place], [place] [phone] Development System Efficiency Manager: Edgardo Lake MDALP [Catalytic activity/Vol]112 U/LNormal 37-153Quest DiagnosticsComment on above:Order Comment: FASTING:NO FASTING: NOPerformed By: #### 5463, 47088, 6399 #### [facility] [address] [place] [address] Development System Efficiency Manager: Caroline Howard #### 4420 #### [facility] [address], [address] [place] [address] Development System Efficiency Manager: Edgardo Lake MDALT [Catalytic activity/Vol]10 U/LNormal6-29 Quest DiagnosticsComment on above:Order Comment: FASTING:NO FASTING: NOPerformed By: #### 5463, 08182, 6399 #### [facility] [address] [place], [place] [address] Development System Efficiency Manager: Caroline Howard #### 4420 #### [facility] [address], [address] Development System Efficiency Manager: Edgardo Lake MDAST [Catalytic activity/Vol]12 U/XFdpqjf36-44 Quest DiagnosticsComment on above:Order Comment: FASTING:NO FASTING: NOPerformed By: #### 5463, 37963, 6399 #### [facility] [address] [place] [address] Development System Efficiency Manager: Caroline Howard #### 4420 #### [facility] [address], [address] [place] [address] Development System Efficiency Manager: Edgardo Lake MDBilirubin [Mass/Vol]0.6 mg/dLNormal0.2-1.2 Quest DiagnosticsComment on above:Order Comment: FASTING:NO FASTING: NOPerformed By: #### 5463, 22059, 6399 #### [facility] [address] [place], [place] [address] Development System Efficiency Manager: Caroline Howard #### 4420 #### [facility] [address] , [address] [place] [address] Development System Efficiency Manager: Edgardo Lake MDBUN/CREATININE RATIOSEE NOTE:Normal6-22Quest DiagnosticsComment on above:Order Comment: FASTING:NO FASTING: NOResult Comment: Not Reported: BUN and Creatinine are within reference range.Performed By: #### 5463, 15984, 6399 #### [facility] [address] [place] [address] Development System Efficiency Manager: Caroline Howard #### 4420 #### [facility] [address], [address] [place] [address] Development System Efficiency Manager: Edgardo Lake MDCalcium [Mass/Vol]9.8 mg/dLNormal8.6-10.4Quest DiagnosticsComment on above:Order Comment: FASTING:NO FASTING: NOPerformed By: #### 5463, 32532, 6399 #### [facility] [address] [place], [place] [address] Development System Efficiency Manager: Caroline Howard #### 4420 #### [facility] [address], [address] [place], [place] [phone] Development System Efficiency Manager: Edgardo LEALhloride [Moles/Vol]101 mmol/DKdsdpy59-754 Quest DiagnosticsComment on above:Order Comment: FASTING:NO FASTING: NOPerformed By: #### 5463, 58542, 6399 #### [facility] [address] [place] [address] Development System Efficiency Manager: Caroline Howard #### 4420 #### [facility] [address], [address] [place] [address] Development System Efficiency Manager: Edgardo Lake MDCO2 [Moles/Vol]29 mmol/UXpbfil96-63Yxbvy DiagnosticsComment on above:Order Comment: FASTING:NO FASTING: NOPerformed By: #### 5463, 08454, 6399 #### [facility] [address] [place] [address] Development System Efficiency Manager: Caroline Howard #### 4420 #### [facility] [address], [address] [place] [address] Development System Efficiency Manager: Edgardo LEALreatinine [Mass/Vol]0.63 mg/dLNormal0.60-1.00 Quest DiagnosticsComment on above:Order Comment: FASTING:NO FASTING: NOPerformed By: #### 5463, 13009, 6399 #### [facility] [address] [place] [phone] Development System Efficiency Manager: Caroline Howard #### 4420 #### [facility] [address], [address] [place], [place] [phone] Development System Efficiency Manager: Edgardo Lake MDGFR/1.73 sq M.predicted among non-blacks MDRD (S/P/Bld) [Vol rate/Area]94 mL/min/{1.73_m2}Normal> OR = 60[facility] Comment on above:Order Comment: FASTING:NO FASTING: NOPerformed By: #### 5463, 43592, 6399 #### [facility] [address] [place] [address] Development System Efficiency Manager: Caroline Howard #### 4420 #### [facility] [address], [address] [place] [address] Development System Efficiency Manager: Edgardo Lake MDGlobulin (S) [Mass/Vol]2.7 g/dLNormal1.9-3.7 Quest DiagnosticsComment on above:Order Comment: FASTING:NO FASTING: NOPerformed By: #### 5463, 51733, 6399 #### [facility] [address] [place] [address] Development System Efficiency Manager: Caroline Howard #### 4420 #### [facility] [address], [address] [place] [address] Development System Efficiency Manager: Edgardo Lake MDGlucose [Mass/Vol]81 mg/cQEwqutl74-081Wmjdq DiagnosticsComment on above:Order Comment: FASTING:NO FASTING: NOResult Comment: Non-fasting reference intervalPerformed By: #### 5463, 13086, 6399 #### [facility] [address] [place] [address] Development System Efficiency Manager: Caroline Howard #### 4420 #### [facility] [address], [address] [place] [address] Development System Efficiency Manager: Edgardo MUNOZotassium [Moles/Vol]4.4 mmol/LNormal3.5-5.3 Quest DiagnosticsComment on above:Order Comment: FASTING:NO FASTING: NOPerformed By: #### 5463, 29604, 6399 #### [facility] [address] [place] [address] Development System Efficiency Manager: Caroline Howard #### 4420 #### [facility] [address], [address] [place] [address] Development System Efficiency Manager: Edgardo Merati MDProtein [Mass/Vol]6.8 g/dLNormal6.1-8.1Quest DiagnosticsComment on above:Order Comment: FASTING:NO FASTING: NOPerformed By: #### 5463, 56376, 6399 #### [facility] [address] [place], [place] [address] Development System Efficiency Manager: Caroline Howard #### 4420 #### [facility] [address], [address] [place] [address] Development System Efficiency Manager: Edgardo Lake MDSodium [Moles/Vol]138 mmol/UNwkwbu761-614Yosrn DiagnosticsComment on above:Order Comment: FASTING:NO FASTING: NOPerformed By: #### 5463, 17423, 6399 #### [facility] [address] [place], [place] [address] Development System Efficiency Manager: Caroline Howard #### 4420 #### [facility] [place] [address] Development System Efficiency Manager: Edgardo Lake MDUrea nitrogen [Mass/Vol]16 mg/dLNormal7-25 [facility] DiagnosticsComment on above:Order Comment: FASTING:NO FASTING: NOPerformed By: #### 5463, 54395, 6399 #### [facility] [address] [place], [place] [address] Development System Efficiency Manager: Caroline Howard #### 4420 #### [facility] [place] [address] Development System Efficiency Manager: Edgardo Lake MDSED RATE BY MODIFIED WESTERGRENon 06-10-2024 SED RATE BY MODIFIED VALPIXJWME74 mm/hNormal< OR = 30Quest DiagnosticsComment on above:Performed By: #### 809, 71814, 6399 #### [facility] [address], [address] [place] [address] Development System Efficiency Manager: Edgardo Lake MDURINALYSIS, COMPLETEon 21-76-1554Ermkhahdpe (U)CLEARNormalCLEARQuest DiagnosticsComment on above:Performed By: #### 809, 92708, 6399 #### [facility] of [address], [address] [place] [address] Development System Efficiency Manager: Edgardo Lake MDBilirubin Ql (U)NegativeNormalNEGATIVEQuest DiagnosticsComment on above:Performed By: #### 809, 34981, 6399 #### [facility] of [address], [address] [place] [address] Development System Efficiency Manager: Edgardo LEALolor (U)YELLOWNormalYELLOWQuest [facility]ostics Comment on above:Performed By: #### 809, 95473, 6399 #### [facility] of [place] [address] Development System Efficiency Manager: Edgardo Lake MDGlucose Ql (U)NegativeNormalNEGATIVEQuest DiagnosticsComment on above:Performed By: #### 809, 12397, 6399 #### [facility] of [place] [address] Development System Efficiency Manager: Edgardo Lake MDKetones Ql (U)NegativeNormalNEGATIVEQuest DiagnosticsComment on above:Performed By: #### 809, 98520, 6399 #### [facility] [place] [address] Development System Efficiency Manager: Edgardo Lake MDLeukocyte esterase Test strip Ql (U)Negative NormalNEGATIVEQuest DiagnosticsComment on above:Performed By: #### 809, 54027, 6399 #### [facility] [place] [address] Development System Efficiency Manager: Edgardo Lake MDNitrite Ql (U)NegativeNormalNEGATIVEQuest DiagnosticsComment on above:Performed By: #### 809, 04389, 6399 #### [facility] of [place] [address] Development System Efficiency Manager: Edgardo Lake MDNOTENormalQuest DiagnosticsComment on above: Result Comment: This urine was analyzed for the presence of WBC, RBC, bacteria, casts, and other formed elements. Only those elements seen were reported.Performed By: #### 809, 04029, 6399 #### [facility] of [place] [address] Development System Efficiency Manager: Edgardo Lake MDOCCULT BLOODNegativeNormalNEGATIVEQuest DiagnosticsComment on above:Performed By: #### 809, 84743, 6399 #### [facility] [place] [address] Development System Efficiency Manager: Edgardo Lake MDpH (U)6.5 [pH]Normal5.0-8.0[facility] Comment on above:Performed By: #### 809, 29328, 6399 #### [facility] [place] [address] Development System Efficiency Manager: Edgardo MUNOZrotein Ql (U)NegativeNormalNEGATIVEQuest DiagnosticsComment on above:Performed By: #### 809, 47491, 6399 #### [facility] [place] [address] Development System Efficiency Manager: Edgardo BUTLERpecific gravity (U) [Rel density]1.010Normal 1.001-1.035Quest DiagnosticsComment on above:Performed By: #### 809, 12942, 6399 #### [facility] [place] [address] Development System Efficiency Manager: Edgardo BUTLERQUAMOUS EPITHELIAL CELLS0-5Normal< OR = 5 [facility] DiagnosticsComment on above:Performed By: #### 809, 30782, 6399 #### [facility] [place] [address] Development System Efficiency Manager: Edgardo Lake MDTRANSITIONAL EPITHELIAL CELLS0-5Normal< OR = 5 Quest DiagnosticsComment on above:Performed By: #### 809, 57349, 6399 #### [facility] [place] [address] [facility], [address] [place] [address] Development System Efficiency Manager: Edgardo IBANEZ Shoulder - right 2 Viewson 05-13-2024 Imaging Result: May 13, 2024 x-rays AP and lateral of the right shoulder demonstrate reverse total shoulder replacement in good position alignment without signs of loosening fracture or failure. Impression: Stable appearance of right shoulder replacement Mainor Magana D.O.[facility] HospitalRadiology Study observation (narrative)[facility] HospitalXR Shoulder - right 2 ViewsOrdered By: Alexis Magana on 05-13-2024 [facility] Work Phone: Coding Summaryon 41-51-9698Hjajbu SummaryHTMLBase 64 QwxoqwknOJd2mIh+PGhlYWQ+OT1IJAOiK04pnIOjxE7oH5VOZItRUtahNLXZEErOLgNhwxGnYT5vnVOj ZXJu [file] IGN (more content not included)...[facility] HospitalCoding Summaryon 97-22-1859Bezqxd SummaryHTMLBase 64 ZhyhzixkWKj8oKp+PGhlYWQ+BW7TRVEiD30hpZBgaW8yX5LPBWsXUerlXTKHLGqWZnSqpgByDB0zjDZr ZXJu [file] IGN (more content not included)...[facility]St. [facility] HospitalCoding Summaryon 67-34-8399Qbcivy SummaryHTMLBase 64 JyjpdppfTYv3pKh+PGhlYWQ+RT2YHAEqX03vmXSfpN5vR0PSVHaARuuuELWRTCnDOuQhgaYwSQ0asQEf ZXJu [file] IGN (more content not included)...NormalMegruder HospitalCoding Summaryon 82-44-0323Fwpsuq SummaryHTMLBase 64 YomhwoqqCPm8lLy+PGhlYWQ+DM0SWXLuO58qbNKgyE2oM1XVVDpKGqltJUBZXJvGGaJiclFhTZ3llNTo ZXJu [file] IGN (more content not included)...[facility] HospitalCoding Summaryon 89-30-8919Ddyvhv SummaryHTMLBase 64 NpyfngngYGn2aBo+PGhlYWQ+CZ2WCGKhD17igKZwiQ0gC7NQURmYXohsAJEWUWpOVsXwxtLlRN3osOPs ZXJu [file] IGN (more content not included)...[facility] HospitalCoding SummaryHTMLBase 64 YtpdyoalYAh7dCv+PGhlYWQ+SE7SRIFpG21lbVKzhA5tD5OFZSyBMvgzRDHPWFkSGtPyaiRnWF7akJZn ZXJu [file] IGN (more content not included)...[facility] HospitalCoding Summaryon 25-64-1803Rsurhi SummaryHTMLBase 64 DndhxcwyDWs8vEu+PGhlYWQ+GA6OHNByY28okWAqoA0eD6HWDPuEIyztSLUZKJyJZzCaoiVjZM1enUSv ZXJu [file] IGN (more content not included)...NormalMagruder HospitalConsent Formson 58-17-9538Ypsqedp [id number] [facility] HospitalCoding Summaryon 83-69-6808Wrhygz SummaryHTMLBase 64 NqpyvfobESw1yUt+PGhlYWQ+WX7CIUVxY16pnABwfR4nR9MNHHbZBbbhPFYFBFxZGmSidyFgLZ3phQTt ZXJu [file] IGN (more content not included)...[facility] HospitalCoding Summaryon 42-15-2963Hndnyr SummaryMLBase 64 IwzprvubEPa5rSm+PGhlYWQ+XU0DRGRrX15dsAIypJ4vY6XZOFmVNaecKCRNTHkVAnRqyrFuPN3gbAOm ZXJu [file] IGN (more content not included)...[facility] HospitalWound Cultureon 14-08-0510Otbhb CultureScant growth of Pseudomonas aeruginosa Rare epithelial cells No organisms seen. No White Blood Cells seen ORGANISM PA SUSCEPTIBILITY ORGANISM ID: 1 ANTIBIOTIC INTERPRETATION GHADA STATUS ORGANISM PAPA Amik S <=16 Verified Amox/Cla >16/8 Verified Amp R >16 Verified Amp/Sul >16/8 Verified Azt S <=4 Verified Cefaz R >4 Verified Cefep S <=8 Verified Cefo 32 Verified Ceftaz S 4 Verified Ceftri >32 Verified Cefur R >16 Verified Ceph R >16 Verified Cipro S <=1 Verified Ertap >1 Verified Gent S 4 Verified Imi S <=1 Verified Levo S <=2 Verified Nitro >64 Verified Pip/Robe S <=16 Verified Tetra >8 Verified Tobra S <=4 Verified Tri/Sulf >2/ VerifiedOhioHealth Pickerington Methodist HospitalComment on above:Performed By: #### [id number] ####[facility] (DEFAULT)[address] [place], [place] [address]Kremib Summaryon 75-84-2002Hkwcys SummaryMLBase 64 TtvbcymsGLl0qZa+PGhlYWQ+IO6EZEBbD39dwDNbrZ2oS1ZOQGaYGworUZLTPNeCNsKarmZuLP1duPWm ZXJu [file] Y29 (more content not included)...NormalMagrmount carmel health system HospitalMAGR Intraoperative Recordon 70-04-4051DODU Intraoperative RecordMAGR Intra-Op Record Summary Primary Physician: Alexis Magana DO Finalized Date/Time: 11/02/23 13:43:12 Pt. Name: DISHA DE LA GARZA Pinky Pryor/Sex: 1950 FEMALE Med Rec #: [id number] Physician: Alexis Magana DO Financial #: [id number] Pt. Type: O Room/Bed: [facility] Admit/Disch: 10/29/23 08:16:12 - 10/30/23 10:30:00 Institution: Case Times MAGR Entry 1 Patient In Room Time 10/29/23 10:29:00 Out Room Time 10/29/23 12:46:00 Anesthesia Start Time 10/29/23 10:29:00 Stop Time 10/29/23 12:47:00 Surgery Start Time 10/29/23 11:02:00 Stop Time 10/29/23 12:46:00 Last Modified By: Alicia Yeh RN 10/29/23 12:50:40 Case Attendance MAGR Entry 1 Entry 2 Entry 3 Case Attendee Alexis Magaan John M MD Long, Barbara RN Andrew DO Role Performed Surgeon - Primary Anesthesiologist of Housing Coordinator Record Time In 10/29/23 10:29:00 10/29/23 10:29:00 10/29/23 10:29:00 Time Out 10/29/23 12:46:00 10/29/23 12:46:00 10/29/23 12:46:00 Procedure Arthroplasty Shoulder Arthroplasty Shoulder Arthroplasty Shoulder Total Reverse Total Reverse Total Reverse Last Modified By: Alicia Yeh RN, Barbara RN Long, Barbara RN 10/29/23 12:50:41 10/29/23 12:50:41 10/29/23 12:50:41 Entry 4 Entry 5 Entry 6 Case Attendee Jd DEUTSCH, Jennifer aCstillo Brittany E CSFA CST Role Performed Scrub Personnel Swimming Pool Installer Swimming Pool Installer Time In 10/29/23 10:29:00 10/29/23 10:29:00 10/29/23 10:29:00 Time Out 10/29/23 12:46:00 10/29/23 12:46:00 02/12/24 12:46:00 Procedure Arthroplasty Shoulder Arthroplasty Shoulder Arthroplasty Shoulder Total Reverse Total Reverse Total Reverse Last Modified By: Alicia Yeh RN, Barbara RN Long, Barbara RN 10/29/23 12:50:41 10/29/23 12:50:41 10/29/23 12:50:41 Surgical Procedures MAGR Pre-Care Text: A.20 Verifies operative procedure, surgical site, and laterality Im.150 Develops individualized plan of care Entry 1 Procedure Arthroplasty Shoulder Primary Procedure Yes Total Reverse Primary Surgeon Alexis Magana Surgeon Comment RIGHT REVERSE TOTAL Mainor DO SHOULDER - ARTHREX Start 10/29/23 11:02:00 Stop 10/29/23 12:46:00 Anesthesia Type General Surgical Service Orthopedics Wound Class Clean Technique Details Closure Technique Primary Entire procedure No was performed via laparoscope or robotic assistance Last Modified By: Alicia Yeh RN 10/29/23 12:50:42 Post-Care Text: O.730 The patient's care is consistent with the individualized perioperative plan of care General Case Data MAGR Pre-Care Text: A.350.1 Classifies surgical wound Entry 1 Case Information OR MAGR OR 05 Case Level Level 5 Wound Class Clean Specialty Orthopedics ASA Class 3 Diagnosis Preop Diagnosis DJD RIGHT SHOULDER Postop Same As Preop Yes Postop Diagnosis DJD RIGHT SHOULDER Blunt or No Is the procedure No penetrating injury considered occured prior to Emergent/Urgent? the start of the procedure: Last Modified By: Alicia Yeh RN 10/29/23 11:07:31 Post-Care Text: O.760 Patient receives consistent and comparable care regardless of the setting Time Out MAGR Entry 1 Procedure(s) Arthroplasty Shoulder Total Reverse Time Out Checklist Verifications Patient Verified Yes Allergies Verified Yes Procedure to be Yes Presence of Yes Performed Verified Necessary with Consent Procedural Equipment, Devices, and Implants Verified Site Verification, Yes Site Marking, Site Marking Alternative, and/or Site Marking Exception in Accordance with Facility Policy Anesthesia Review Antibiotic Received Yes All Anesthesia Yes Within an Concerns Addressed Appropriate Time Interval Prior to Surgical Incision Surgeon Review Anticipated Blood Yes Loss Risk, Expected Case Duration, and Critical and Non-Routine Steps to be Performed Addressed Nurse Review Team Introductions Yes Equipment Concerns Yes Completed Addressed Fall Risk Concerns Yes Fire Risk Yes Addressed Assessment Completed and Interventions Performed Skin Assessment Yes Diagnostic and Yes Concerns Addressed Radiological Test Results Displayed are Appropriate and Labeled Skin Prep Allowed Yes Sterilization Yes to Dry Prior to Concerns Addressed Incision Venous Yes Laser Safety n/a Thromboembolism Measures Implemented Prophylaxis Ordered Latex Precautions Yes Other Concerns Yes Implemented Addressed Time Out Alexis Magana Time Out Time 10/29/23 11:01:00 Participants Mainor BATRES, Delta Lucio MD, Alicia Yeh RN, Jd BOWLING BALL ENGRAVER, Kimberly Contreras Lauren M CSFA, Nasreen Agudelo BOWLING BALL ENGRAVER Last Modified By: Alicia Yeh RN 10/29/23 11:08:20 Patient Positioning MAGR Pre-Care Text: A.280 Identifies baseline musculoskeletal status Im.40 Positions the patient Im.80 Applies safety devices Entry 1 Procedure Arthroplasty Shoulder Body Positi (more content not included)...Normal [facility] SystemConsent Formson 24-07-8082Edhnvic Forms [id number] Postoperative Recordon 81-33-0995QLUX Postoperative RecordMAGR Phase II Record Summary Primary Physician: Alexis Magana DO Finalized Date/Time: 10/31/23 10:27:03 Pt. Name: DISHA DE LA GARZA/Sex: 1950 FEMALE Med Rec #: [id number] Physician: Alexis Magana DO Financial #: [id number] Pt. Type: O Room/Bed: [facility] Admit/Disch: 10/29/23 08:16:12 - 10/30/23 10:30:00 Institution: Phase II Case Times MAGR Pre-Care Text: Patient is free from s/s of injury. Patient remains free from compromised physical state related tosurgery or anesthesia. Patient comfort maintained. Patient/family verbalize understanding of discharge instructions. Entry 1 In PACU II 10/29/23 13:46:00 Discharge from PACU 10/29/23 19:00:00 II Last Modified By: Darshana Menjivar RN 10/31/23 10:26:59 Post-Care Text: The patient remains free from s/s of injury. Patient's vital signs stable, circulation maintained, return to preop mental and physical status, opsite/dressing intact, minimal or absent nausea and vomiting, tolerates po intake. Patient verbalizes adequate pain control. Patient/family express understanding of discharge instructions. General Comments: patient taken to [facility] for Phase II and possibly spending the night Finalized By: Darshana Menjivar RN Document Signatures Signed By: Darshana Menjivar RN 10/31/23 10:27[facility] HospitalOutside Recordson 10-31-2023 Outside [id number]#1.00OTGTBarberton Citizens HospitalProvider Orderson [id number] Orders [id number]#1.00[facility] Telemetry Stripson [id number] Strips [id number]#1.00[facility] Consultation/Specialist Noteon [id number]/Specialist NotePatient: DISHA DE LA GARZA Age: 73 years Sex: FEMALE : 1950 Associated Diagnoses: None Author: TREY RICHMOND Basic Information 1 day s/p RT reverse TSA (DOS 10/30/23) Subjective Pt is sitting in the chair at bedside. pain is 0/10. she is looking forward to going home today. Review of Systems denies chest pain, shortness of breath and nausea Health Status Allergies: Allergic Reactions (All) Moderate Plaquenil- Rash. Objective kryo cuff intact, wound vac intact, no drainage in the canister, nv intact distally, able to flex and extend the elbow and wrist Impression and Plan d/c home once pain well controlled, f/U in office 11/05/23 [Electronically Signed on: 10/30/2023 08:53 EST] TREY RICHMOND [Verified on: 10/30/2023 08:53 EST] [facility]30-[facility]23 Inpatient Patient [address] [address] Patient Discharge Instructions Name: DISHA DE LA GARZA : 1950 [facility]: [id number] Patient Address: [address] [place], [place] [address] Primary Care Provider: Name: WILL TIM After you are discharged if you find you have any questions, please, call [phone] ext [phone] to speak to a nurse. The Pharmacy at [facility] is open Sunday through Sunday from 9A to 6P and Sunday and Sunday from 9A to 5P Discharge Diagnosis: Arthritis of right glenohumeral joint Prescription Information: If you have been given a prescription for narcotics, seek immediate medical attention if you have any difficulty breathing or any sudden status changes such as confusion andsleepiness. If you or anyone you know is experiencing suicidal thoughts, mental health, alcohol and/or drug addiction problems; contact the [facility] 09/04 Crisis Hotline -Text 6MKJL lj [phone]. If you received any narcotics, sedation, or any other medication that causes drowsiness for the next 24 hours, unless otherwise directed: ? Do not drive a car. ? Do not operate machinery such as power tools, lawn mowers, drills, sewing machines, or stoves ? Avoid alcoholic beverages and drugs for allergies, nerves, or sleep ? Do not make important personal or business decisions or sign any legal documents [facility] would like to thank you for allowing us to assist you with your healthcare needs.The following includes patient education materials and information regarding your injury/illness. DISHA DE LA GARZA has been given the following list of follow-up instructions, prescriptions, and patient education materials: Follow-up Instructions With: Address: When: TREY RICHMOND [address] [place] [address], [address] [place], [place] [id number] Business (1) 11/05/2023 11:30 AM With: Address: When: WILL MEETA [address] [facility], [place] [address] Business (1) With: Address: When: Alexis Magana [address] [place] [address], [address] [place] [address] Business (1) 11/06/2023 10:00 AM Medications During the course of your visit, your medication list was updated with the most current information. The details of those changes are reflected below: Medications to Continue That Have Not Changed Other Medications aspirin (aspirin 81 mg oral delayed release tablet) 1 tab(s) Oral (given by mouth) every day. atorvastatin (atorvastatin 10 mg oral tablet) 1 tab(s) Oral (given by mouth) every day. DULoxetine (DULoxetine 60 mg oral delayed release capsule) 1 cap(s) Oral (given by mouth) every day. (do not crush or chew). ferrous sulfate (FeroSul 325 mg (65 mg elemental iron) oral tablet) 1 tab(s) Oral (given by mouth) every day. folic acid (folic acid 1 mg oral tablet) 1 tab(s) Oral (given by mouth) every day. latanoprost ophthalmic (latanoprost 0.005% ophthalmic solution) 1 Drops Ophthalmic (the eye) once aday (at bedtime). metFORMIN (metFORMIN 1000 mg oral tablet) 1 tab(s) Oral (given by mouth) 2 times a day (scheduled). methotrexate (methotrexate 2.5 mg oral tablet) 8 tab(s) Oral (given by mouth) Every Sunday. multivitamin (Multivitamin, generic) 1 tab(s) Oral (given by mouth) every day. omeprazole (omeprazole 20 mg oral delayed release capsule) 1 cap(s) Oral (given by mouth) every day. oxyCODONE (oxyCODONE 5 mg oral tablet) 1 tab(s) Oral (given by mouth) every 6 hours (scheduled) as needed Pain - Moderate for 5 Days. It is important to always keep an active list of medications available so that you can share with other providers and manage your medications appropriately. As an additional courtesy, we are also providing you with your final active medications list that you can keep with you. aspirin (aspirin 81 mg oral delayed release tablet) 1 tab(s) Oral (given by mouth) every day. atorvastatin (atorvastatin 10 mg oral tablet) 1 tab(s) Oral (given by mouth) every day. DULoxetine (DULoxetine 60 mg oral delayed release capsule) 1 cap(s) Oral (given by mouth) every day. (do not crush or chew). ferrous sulfate (FeroSul 325 mg (65 mg elemental iron) oral tablet) 1 tab(s) Oral (given by mouth) every day. folic acid (folic acid 1 mg oral tablet) 1 tab(s) Oral (given by mouth) every day. latanoprost ophthalmic (latanoprost 0.005% ophthalmic solution) 1 Drops Ophthalmic (the eye) once aday (at bedtime). metFORMIN (metFORMIN 1000 mg oral tablet) 1 tab(s) Oral (given by mouth) 2 times a day (scheduled). methotrexate (methotrexate 2.5 mg oral tablet) 8 tab(s) Oral (given by mouth) Every Sunday. multivitamin (Multivitamin, generic) 1 tab(s) Oral (given by mouth) every day. omeprazole (omeprazole 20 mg oral delayed release capsule) 1 cap(s) Oral (given by mouth) every day. oxyCODONE (oxyCODONE 5 mg oral tablet) 1 tab(s) Oral (given by mouth) every 6 hours (scheduled) as needed Ewn (more content not included)...[facility] HospitalPharmacy Noteon [id number] NoteI have personally reviewed the patient's current home medication list including, prescription medications, OTC products, vitamins and supplements. Home medications reviewed upon admission as follows: Active Medications aspirin: 81 mg = 1 tab(s), Oral, Daily, Refills: atorvastatin: 10 mg = 1 tab(s), Oral, Daily, Refills: DULoxetine: 60 mg = 1 cap(s), Oral, Daily, (do not crush or chew), Refills: ferrous sulfate: 325 mg = 1 tab(s), Oral, Daily, Refills: folic acid: 1 mg = 1 tab(s), Oral, Daily, 30 tab(s), 0 Refill(s), Refills: 0 latanoprost ophthalmic: 1 drop(s), Ophthalmic, Once a day (at bedtime), Refills: metFORMIN: 1,000 mg = 1 tab(s), Oral, BID, Refills: methotrexate: 20 mg = 8 tab(s), Oral, qMonday, Refills: multivitamin: 1 tab(s), Oral, Daily, 0 Refill(s), Refills: 0 omeprazole: 20 mg = 1 cap(s), Oral, Daily, Refills: oxyCODONE: 5 mg = 1 tab(s), Oral, q6hr, for 5 day(s), PRN: Pain - Moderate, 0 Refill(s), Refills: 0 Not taking, to start after surgery Status of Medication History: Complete Source of Information: Patient and External Records Changes Made: - Medications Added to List: post-op oxycodone - Medications Held at Admission: - Medications Modified: added strength to folic acid - Medications Removed from List: state reason (i.e. no longer taking, strength change, etc) Other Comments: [Electronically Signed on: 10/30/2023 08:04 EST] Jeet Lambert PharmD [Verified on: 10/30/2023 08:04 EST] Jeet Lambert PharmGerman HospitalAnesthesia Noteon 10-29-2023 Anesthesia NotePatient: DISHA DE LA GARZA Age: 73 years Sex: FEMALE : 1950 Associated Diagnoses: None Author: Delta uLcio MD Postoperative Information Post Operative Note Health Status Allergies: Allergic Reactions (All) Moderate Plaquenil- Rash. Problem list (past medical history): All Problems Arthritis / SNOMED CT 7131592 / Confirmed Bilateral angle-closure glaucoma / SNOMED CT 8303393858 / Confirmed DJD of shoulder / SNOMED CT 004854391 / Confirmed Diabetes / SNOMED CT 909484615 / Confirmed GERD (gastroesophageal reflux disease) / SNOMED CT 011892123 / Confirmed Mixed hyperlipidemia / SNOMED CT 389864461 / Confirmed Obesity / SNOMED CT 5788596984 / Confirmed Recurrent hematuria / SNOMED CT 881544069 / Confirmed Rupture of rotator cuff of right shoulder / SNOMED CT 1937469292 / Confirmed Smoker / SNOMED CT 658785998 / Confirmed Spondylolisthesis / SNOMED CT 137975579 / Confirmed Urge incontinence of urine / SNOMED CT 593919396 / Confirmed Vascular insufficiency / SNOMED CT 439986141 / Confirmed Physical Examination VS/Measurements Vital Signs (last 24 hrs) Last Charted Temp Oral 36.9 DegC (OCT 29:) Heart Rate Peripheral 89 bpm (OCT 29:) Resp Rate 16 br/min (OCT 29) SBP 120 mmHg (OCT 29) DBP 75 mmHg (OCT 29) Assessment Anesthetic outcome No anesthetic complications noted. Plan Transfer/ Discharge: To home, Patient can be discharged from PACU when criteria met. pt did well. no pain. no n/v. hd stable. resp and neuro status at baseline. volume status adequate [Electronically Signed on: 10/29/2023 17:57 EST] Delta Lucio MD [Verified on: 10/29/2023 17:57 EST] Delta Lucio MDOhioHealth Pickerington Methodist HospitalAnesthesia NotePatient: DISHA DE LA GARZA Age: 73 years Sex: FEMALE : 1950 Associated Diagnoses: None Author: Delta Lucio MD Preoperative Information Anesthesia history: Patient history: No difficult intubation, No malignant hyperthermia. Family history: No malignant hyperthermia. Review of Systems Constitutional: Negative. Respiratory: Negative, No shortness of breath. Cardiovascular: Negative, No chest pain. Gastrointestinal: No heartburn. Health Status Allergies: Allergic Reactions (All) Moderate Plaquenil- Rash. Current medications: Home Medications (10) Active aspirin 81 mg oral delayed release tablet 81 mg = 1 tab(s), Oral, Daily atorvastatin 10 mg oral tablet 10 mg = 1 tab(s), Oral, Daily DULoxetine 60 mg oral delayed release capsule 60 mg = 1 cap(s), Oral, Daily FeroSul 325 mg (65 mg elemental iron) oral tablet 325 mg = 1 tab(s), Oral, Daily folic acid 1 tab(s), Oral, Daily latanoprost 0.005% ophthalmic solution 1 drop(s), Ophthalmic, Once a day (at bedtime) metFORMIN 1000 mg oral tablet 1,000 mg = 1 tab(s), Oral, BID methotrexate 2.5 mg oral tablet 20 mg = 8 tab(s), Oral, qMonday Multivitamin, generic 1 tab(s), Oral, Daily omeprazole 20 mg oral delayed release capsule 20 mg = 1 cap(s), Oral, Daily Problem list (past medical history): All Problems Arthritis / SNOMED CT 8323178 / Confirmed Bilateral angle-closure glaucoma / SNOMED CT 0417649430 / Confirmed DJD of shoulder / SNOMED CT 221708935 / Confirmed Diabetes / SNOMED CT 237809218 / Confirmed GERD (gastroesophageal reflux disease) / SNOMED CT 882915158 / Confirmed Mixed hyperlipidemia / SNOMED CT 056137545 / Confirmed Obesity / SNOMED CT 0942132489 / Confirmed Recurrent hematuria / SNOMED CT 094266675 / Confirmed Rupture of rotator cuff of right shoulder / SNOMED CT 1402841806 / Confirmed Smoker / SNOMED CT 791178661 / Confirmed Spondylolisthesis / SNOMED CT 508349265 / Confirmed Urge incontinence of urine / SNOMED CT 722747564 / Confirmed Vascular insufficiency / SNOMED CT 220680514 / Confirmed Histories Family History: No family history items have been selected or recorded. Procedure history: Total shoulder replacement (71388589) in the month of 04/2023 at 73 Years. Comments: 10/04/2023 15:26 Skyla Solares RN Left reverse Nerve (9221128). Comments: 10/04/2023 15:27 Skyla Solares RN Left arm- pt unsure of what nerve Abdominal hysterectomy (479144834). Tonsillectomy and adenoidectomy (084117049). Laparoscopic cholecystectomy (49330173). Total knee arthroplasty (9236527513). Comments: 10/04/2023 15:27 Skyla Solares RN bilateral knees Ovarian cyst (560319677). Comments: 10/04/2023 15:29 Skyla Solares RN Removal of Appendectomy (930289532). Social History Electronic Cigarette/Vaping Assessment Electronic Cigarette Use: Never. Alcohol Assessment Use: Past. Tobacco Assessment Current everyday tobacco user Tobacco Use:. 8 cigarettes/day per day. Started age 17 Years. Substance Abuse Assessment Substance use: Never. . Social & Psychosocial Habits Alcohol 10/04/2023 Alcohol Use: Past Substance Use 10/04/2023 Substance use: Never Tobacco 10/04/2023 Smoking tobacco use: Current everyday tobacco Number used per day: 8 cigarettes/day Started at age: 17 Years Electronic Cigarette/Vaping 10/04/2023 Electronic Cigarette Use: Never . Physical Examination VS/Measurements Vital Signs (last 24 hrs) Last Charted Heart Rate Peripheral 87 bpm (OCT 29 10:00) Resp Rate 18 br/min (OCT 29 10:00) SBP H 147 mmHg (OCT 29 10:00) DBP 90 mmHg (OCT 29:00) Review / Management Laboratory Results Plan [place] [employer]esthesiologists#(ASA) physical status classification: Class III. Anesthetic Preoperative Plan Anesthesia: General. , Regional Interscalene Block. Anesthetic plan, risks, benefits, and alternatives discussed with the patient and/or family. Patient verbalized understanding. [Electronically Signed on: 10/29/2023 10:04 EST] Delta Lucio MD [Verified on: 10/29/2023 10:04 EST] Delta Lucio MDCleveland Clinic Euclid HospitalGR Intraoperative Recordon 10-29-2023 MAGR Intraoperative RecordMAGR Intra-Op Record Summary Primary Physician: Finalized Date/Time: 10/29/23 10:39:51 Pt. Name: DISHA DE LA GARZA Pinky Pryor/Sex: 1950 FEMALE Med Rec #: [id number] Physician: Alexis Magana DO Financial #: [id number] Pt. Type: D Room/Bed: [facility] Admit/Disch: 10/29/23 08:16:12 - Institution: Case Times MAGR Entry 1 Patient In Room Time 10/29/23 09:52:00 Out Room Time 10/29/23 10:28:00 Anesthesia Start Time 10/29/23 09:55:00 Stop Time 10/29/23 10:28:00 Surgery Start Time 10/29/23 09:58:00 Stop Time 10/29/23 10:01:00 Last Modified By: Skyla Garcia RN 10/29/23 10:35:54 Case Attendance MAGR Entry 1 Entry 2 Entry 3 Case Attendee Delta Lucio MD, Laura RN Draper, Lora RN Role Performed Anesthesiologist of Housing Coordinator Housing Coordinator Record Time In 10/29/23 09:52:00 10/29/23 09:52:00 10/29/23 09:52:00 Time Out 10/29/23 10:02:00 10/29/23 10:05:00 10/29/23 10:28:00 Procedure Interscalene Interscalene Interscalene Block(Right) Block(Right) Block(Right) Last Modified By: Skyla Garcia RN, Lora RN Draper, Lora RN 10/29/23 10:35:57 10/29/23 10:35:57 10/29/23 10:35:57 Surgical Procedures MAGR Pre-Care Text: A.20 Verifies operative procedure, surgical site, and laterality Im.150 Develops individualized plan of care Entry 1 Procedure Interscalene Block Primary Procedure Yes Primary Surgeon Delta Lucio MD Modifiers Right Surgeon Comment SCALENE BLOCK PRIOR TO Start 10/29/23 09:58:00 RIGHT REVERSE TOTAL SHOULDER Stop 10/29/23 10:01:00 Anesthesia Type Regional Block Surgical Service Anesthesia Wound Class Clean Technique Details Closure Technique N/A Entire procedure No was performed via laparoscope or robotic assistance Last Modified By: Skyla Garcia RN 10/29/23 10:36:03 Post-Care Text: O.730 The patient's care is consistent with the individualized perioperative plan of care General Case Data MAGR Pre-Care Text: A.350.1 Classifies surgical wound Entry 1 Case Information OR MAGR Proc Room Case Level None Wound Class Clean Specialty Anesthesia ASA Class 3 Diagnosis Preop Diagnosis SCALENE BLOCK PRIOR TO Postop Same As Preop Yes RIGHT REVERSE TOTAL SHOULDER Postop Diagnosis SCALENE BLOCK PRIOR TO RIGHT REVERSE TOTAL SHOULDER Blunt or No Is the procedure No penetrating injury considered occured prior to Emergent/Urgent? the start of the procedure: Last Modified By: Skyla Garcia RN 10/29/23 10:05:29 Post-Care Text: O.760 Patient receives consistent and comparable care regardless of the setting Time Out MAGR Entry 1 Procedure(s) Interscalene Block(Right) Time Out Checklist Verifications Patient Verified Yes Allergies Verified Yes Procedure to be Yes Presence of Yes Performed Verified Necessary with Consent Procedural Equipment, Devices, and Implants Verified Site Verification, Yes Site Marking, Site Marking Alternative, and/or Site Marking Exception in Accordance with Facility Policy Anesthesia Review Antibiotic Received n/a All Anesthesia Yes Within an Concerns Addressed Appropriate Time Interval Prior to Surgical Incision Surgeon Review Anticipated Blood Yes Loss Risk, Expected Case Duration, and Critical and Non-Routine Steps to be Performed Addressed Nurse Review Team Introductions Yes Equipment Concerns Yes Completed Addressed Fall Risk Concerns Yes Fire Risk Yes Addressed Assessment Completed and Interventions Performed Skin Assessment Yes Diagnostic and Yes Concerns Addressed Radiological Test Results Displayed are Appropriate and Labeled Skin Prep Allowed Yes Sterilization Yes to Dry Prior to Concerns Addressed Incision Venous n/a Laser Safety n/a Thromboembolism Measures Implemented Prophylaxis Ordered Latex Precautions Yes Other Concerns Yes Implemented Addressed Time Out Delta Lucio MD, Time Out Time 10/29/23 09:54:00 Participants Jeanna Mccain RN, Skyla Garcia RN Last Modified By: Skyla Garcia RN 10/29/23 09:59:30 Patient Positioning MAGR Pre-Care Text: A.280 Identifies baseline musculoskeletal status Im.40 Positions the patient Im.80 Applies safety devices Entry 1 Procedure Interscalene Body Position Semi-Fowlers Block(Right) Left Arm Position Resting at Side Right Arm Position Resting at Side Left Leg Position Extended Right Leg Position Extended Feet Uncrossed? Yes Press Points Checked Yes Outcome Met (O.80) Yes Last Modified By: Skyla Garcia RN 10/29/23 09:59:55 Post-Care Text: E.290 Evaluates musculoskeletal status O.80 Patient is free from signs and symptoms of injury related to positioning Skin Prep MAGR Pre-Care Text: A.30 Verifies allergies Im.270 Performs skin preparation Im.270.1 Implements protective measures toprevent skin and tissue injury due to chemical sources Entry 1 Skin Prep Syntegrity Prep Agents (Im.270) Chlorhexidine Gluconate Prep By Kameron (more content not included)...[facility] PACU Recordon [id number] PACU Record MAGR PACU Record Summary Primary Physician: Alexis Magana DO Finalized Date/Time: 10/29/23 13:55:02 Pt. Name: DISHA DE LA GARZA D.O.B./Sex: 1950 FEMALE Med Rec #: [id number] Physician: Alexis Magana DO Financial #: [id number] Pt. Type: D Room/Bed: 227/1 Admit/Disch: 10/29/23 08:16:12 - Institution: PACU Case Times MAGR Entry 1 In PACU I 10/29/23 12:51:00 Discharge from PACU 10/29/23 13:45:00 I Last Modified By: Darshana Menjivar RN 10/29/23 13:55:01 Finalized By: Darshana Menjivar RN Document Signatures Signed By: Darshana Menjivar RN 10/29/23 13:55[facility] Preoperative Recordon [id number] [facility]LITT[facility] Summary Primary Physician: Alexis Magana DO Finalized Date/Time: 10/29/23 10:41:55 Pt. Name: DISHA DE LA GARZA D.O.B./Sex: 1950 FEMALE Med Rec #: [id number] Physician: Alexis Magana DO Financial #: [id number] Pt. Type: D Room/Bed: 227/1 Admit/Disch: 10/29/23 08:16:12 - Institution: Pre-Op Case Times MAGR Pre-Care Text: Patient will be optimally prepared for surgery. Patient is free from s/s of injury. Provide information to patient/family related to plan of care. Verify patient allergies. Confirm identity and verify consent before the operative or invasive procedure. Entry 1 Patient Arrival Time 10/29/23 08:20:00 Preop Departure 10/29/23 10:28:00 Last Modified By: Skyla Garcia RN 10/29/23 10:41:50 Post-Care Text: Patient is prepared mentally and physically and is ready for surgery. The patient remains free froms/s of injury. Patient/family express understanding of plan of care and participate in decisions affectinghis or her perioperrative plan of care. Allergies documented appropriately. Patient identifiers and consent correct. General Comments: Pt to PSW. Pt is diabetic. Pt denies any recnetcold/flu/covid symtpoms, SOB, sleep apnea, CP, or pacemaker/defibrillator. Finalized By: Skyla Garcia RN Document Signatures Signed By: Skyla Garcia RN 10/29/23 10:41[facility] HospitalNutrition Noteon 10-29-2023 Nutrition NotePt admitted for scheduled Rt shoulder surgery. Diet advanced to Regular. Pre-op wts/ labs reviewed.10/29 BS 93. Pt with DM, no recent hgbA1C on file. No chewing/swallowing problems identified. Other than age greater than 65y and surgery, Pt appears at low nutrition risk. Diet adjusted to 1800CD for consistent CHO intake.[facility] HospitalOperative Report - Surgeon/Physicianon [id number] Report - Surgeon/PhysicianPreoperative diagnosis: Rotator cuff tear arthropathy right shoulder, arthritis of the glenohumeraljoint right Postoperative diagnosis: Same Procedure: Reverse total shoulder replacement right Implants: Arthrex size 9 apex stem, 24 mm +2 offset baseplate, 25 mm central post, posterior offsetcup 36. Polyethylene spacer 36/+3, glenosphere 36+4 offset Surgeon: Aric Magana D.O. Anesthesia: General Indications for surgery: Intractable pain with failure of conservative treatment and findings consistent with arthritis and cuff tear arthropathy Estimated blood loss: 250 Complications: No complication Findings: Pczt-pv-dxmg and deficient rotator cuff Procedure summary: Patient was given general anesthesia positioned in the beachchair and then prepped first with isopropyl and then with Betadine and then draped in the usual fashion a timeout was taken. Incision was made anteriorly using a deltopectoral approach however when I got to the cephalic vein it was intimately associated adherent to both the deltoid and the pectoralis and I felt that mobilizing it 1 where the other it from the muscles would ultimately destroyed the vein so I elected to go lateral about 1 and half centimeters lateral to its deltoid attachment site and divide the deltoid fibers mobilizing the vein medially along with the pectoralis and the medial border of the deltoid. Beneath this identified the biceps tendon the pectoralis I released the deltoid so the retractor could be placed underneath it I released the proximal half centimeter of the pectoralis I tenodesed the biceps tendon directly to the pectoralis. I resected the pectoralis proximally and then the supraspinatus and infraspinatus were deficient and there was direct communication into the glenohumeral joint but the subscapularis was still intact. I mobilized the subscapularis along with the capsule medially and expose the glenohumeral joint raw bone was noted. The humeral head was dislocated. A cut was taken utilizing a 20 degree version guide. My attention was turned towards the socket VIP mapping had been done with Arthrex and a CT scan preoperatively. No augment was needed for the baseplate. A Steinmann pin was inserted with the VIP guide. The glenoid was prepared with reamers and then reamed to accommodate 25 mm central post. A +2 mm offset baseplate with a 25 mm post was impacted into place. It was snug and secure but I further stabilized it with 2 nonlocking screws and 2 locking screws. Next a +436 glenosphere was impacted into place and that was further stabilized with a locking screw torqued to 5. My attention was turned back towards the humerus the canal was opened with a hand-held reamer and the broached sequentially up to size 9 this was slightly anterior relative to the proximal humerus I used a posterior offset for the cup. Posterior offset post was inserted and reaming was performed the trial reductions were performed the shoulder was stable even extremes of range of motion and the deltoid was tensioned appropriately. The trial components were removed and a size 9 apex stem along with a cup with posterior offset was impacted into place next a 3 mm x 36 liner was clicked into place and checked for integrity the shoulder was reduced range of motion was taken to extremes shoulder was stable I irrigated the wound and soaked the wound in diluted Betadine. Throughout the procedure the patient had tendency to ooze and bleed from soft tissues and also frombone I aggressively pursued hemostasis throughout the entire procedure but there still was a tendency especially from the bone tissues so I elected to use a Prevena wound VAC. I repaired the subscapularis with a #2 FiberWire suture I closed the subcu cutaneous fascia with 2-0 Vicryl then a running 3-0 subcuticular stitch tincture benzoin and widely placed Steri-Strips. Next a 20 cm Prevena wound VAC was laid down over the wound secured with a Tegaderm and then activated with suction. The patient was then transported to the recovery room in stable condition [Electronically Signed on: 10/29/2023 12:58 EST] Alexis Magana DO [Verified on: 10/29/2023 12:58 EST] [facility]ana [facility] Glucose Levelon 75-74-4049Rdqtuxi [Mass/Vol]112 mg/rEOjeiyx67-552Fikwkkmu93 Barnett StreetComment on above:Performed By: #### [id number] #### [facility] (DEFAULT) [address] [place] [address] 92366Wptmydr [Mass/Vol]93 mg/nCBpaqyh95-917Vvwiweax[address] Comment on above:Performed By: #### [id number] ####[facility] (DEFAULT)[address] [place] [address] [id number] Shoulder 1 View Righton 08-94-7456WK Shoulder 1 View RightEXAM: XR Shoulder 1 View Right. HISTORY: Status post Shoulder Replacement. COMPARISON: None. TECHNIQUE: AP view of the right shoulder was obtained with portable technique at 1:13 PM. FINDINGS: There is a ball and cup type right shoulder prosthesis which appears unremarkably positioned. Mild degenerative changes about the acromioclavicular joint. Mild soft tissue swelling with soft tissue air compatible with recent surgery. No definite acute fracture or dislocation. Moderate degenerative changes about the visualized cervical spine. IMPRESSION: Right shoulder study demonstrates grossly unremarkable post arthroplasty changes as noted. Follow-up as needed. Final Dictated by: Robert Fong MD Dictated DT/TM: 10/29/23 1:30 Signed (Electronic Signature): Robert Fong MD 10/29/23 4:00 pm Technologist: RAVEN JUNGAultman Alliance Community HospitalComment on above:Order Comment: default status post shoulder replacementPatient Handouton 40-59-7702Spfhuny HandoutDRKevin MAGANA'Romina POST OPERATIVE SHOULDER INSTRUCTIONS: SURGEON'S WRITTEN INSTRUCTIONS: 1. If you have been given a cryo cuff after surgery you should use it as much as possible for the first 24-48 hours. After that it is optional. TIP: Many patients prefer to use it a little longer because it helps reduce pain. 2. You should wiggle your fingers frequently. 3. Change your dressings in 1 day. If steri-strips have been applied DO NOT remove them. When the wound is clean and dry you may leave it open to air but again DO NOT remove any steri-strips that have been applied. 4. You may shower in 1 day but do not let the water stream directly strike the wound. 5. Do pendulum exercises for at least 10 minutes twice a day. 6. If you have any problems or concerns, please call the office at [phone]. 7. Follow up as scheduled.[facility] HospitalProess Note - Nurseon 49-87-7707Wtqjjmpu Note - NursePre-op call done, instructed to arrive @ 0830 on 10-29-23, NPO after midnight-verbalized understanding. [Electronically Signed on: 10/26/2023 10:21 EST] Jeanna Mccain RN [Verified on: 10/26/2023 10:21 EST] Jeanna Mccain RNNormalSt. Charles Hospital HospitalCoding Summaryon 16-34-1707Enissr Summary HTMLBase 64 IihgnrgtFMj8dUi+PGhlYWQ+GJ2XEJFbQ87pjWDjfZ6lI0HUQPgYUoosBORXFDdKEpUgunRdIS1weTHw ZXJu [file] IGN (more content not included)...[facility] Urineon 10-06-2023 UrineUrine Culture ordered as a result of parameters set on specific urine dip and urine microsopic results. Mixed skin, or urogenital eduard. Clinically insignificantOhioHealth Pickering[facility] Methodist Hospital Comment on above:Performed By: #### [id number], [id number], [id number] ####[facility] (DEFAULT)[address] [place] [address] 87964E MRSA Screenon 10-05-2023 MRSA ScreenNegativeOhioHealth Pickerington Methodist HospitalComment on above:Performed By: #### [id number] ####[facility] (DEFAULT)[address] [place] [address] 38429Yoakhelg Orderson 09-81-8465Hpcdxkni Orders [id number]#1.00OTGTIFFOhioHealth Pickerington Methodist HospitalUA Leupy2vx 24-60-7813HA Bacteria1+[facility] HospitalComment on above:Order Comment: Urinalysis Microscopic order added on by [employer] Expert Rules system. Performed By: #### [id number], [id number], [id number] ####[facility] (DEFAULT)[address] [place] [address] 15471RI MucousTraceOhioHealth Pickerington Methodist HospitalComment on above:Order Comment: Urinalysis Microscopic order added on by [employer] Rules system.Performed By: #### [id number], [id number], [id number] ####[facility] (DEFAULT)[address] [place], [place] [address]UA RBC3-5 NormalAdena Health SystemComment on above:Order Comment: Urinalysis Microscopic order added on by [employer] Rules system.Performed By: #### [id number], [id number], [id number] ####[facility] (DEFAULT)[address] [place], [place] [address]UA Renal EpiFewMercy Health Urbana Hospital HospitalComment on above:Order Comment: Urinalysis Microscopic order added on by [employer] Rules system. Performed By: #### [id number], [id number], [id number] ####[facility] (DEFAULT)[address] [place], [place] [address]UA Squam EpiFewMercy Health Urbana Hospital HospitalComment on above:Order Comment: Urinalysis Microscopic order added on by [employer] Rules system.Performed By: #### [id number], [id number], [id number] ####[facility] (DEFAULT)[address] [place], [place] [address]UA WBC5-10 [facility] HospitalComment on above:Order Comment: Urinalysis Microscopic order added on by [employer] Rules system.Performed By: #### [id number], [id number], [id number] ####[facility] (DEFAULT)[address] [place], [place] [address]UA w Culture if Ind Standardon 17-77-9197Zhjvhbhrju UA [facility] HospitalComment on above:Performed By: #### [id number], [id number], [id number] ####[facility] (DEFAULT)[address] [place] [place], [place] [address] Color (U)YellowNoAshtabula County Medical CenterComment on above:Performed By: #### [id number], [id number], [id number] ####[facility] (DEFAULT)[address] [place], [place] [address]Culture?IndicatedInvalid Interpretation CodeSt. Charles Hospital HospitalComment on above:Result Comment: Result created by rule GL_MAGR_ADD_UA_CULT Result created by rule GL_MAGR_ADD_UA_CULT Result created by rule GL_MAGR_ADD_UA_CULT1 Result created by rule GL_MAGR_ADD_UA_CULTPerformed By: #### [id number], [id number], [id number] ####[facility] (DEFAULT)[address] [place] [address] 32510Htqtsqg (U) [Mass/Vol]NegativeNormalSt. Charles Hospital HospitalComment on above:Performed By: #### [id number], [id number], [id number] ####[facility] (DEFAULT)[address] [place] [address] 19283Fdjvywh Ql (U)NegativeNormTrinity Health System East Campus HospitalComment on above:Performed By: #### [id number], [id number], [id number] ####[facility] (DEFAULT)[address] [place] [address] 09793Iamel?IndicatedInvalid Interpretation [facility] Comment on above:Result Comment: Result created by rule GL_MAGR_ADD_UA_MICRO Performed By: #### [id number], [id number], [id number] ####[facility] (DEFAULT)[address] [place] [address] [facility] HospitalComment on above:Performed By: #### [id number], [id number], [id number] ####[facility] (DEFAULT)[address] [place] [address] 69119 UA BloodTRACEAbnormalNEGATIVESt. Charles Hospital HospitalComment on above:Performed By: #### [id number], [id number], [id number] ####[facility] (DEFAULT)[address] [place] [address] 77332SR ClarityCLEARNormalCLEARSt. Charles Hospital HospitalComment on above:Performed By: #### [id number], [id number], [id number] ####[facility] (DEFAULT)[address] [place] [address] 96459AK Leuk EstTRACEAbnormalNEGATIVE St[facility] HospitalComment on above:Performed By: #### [id number], [id number], [id number] ####[facility] (DEFAULT)[address] [place] [address] 93886 UA NitriteNegativeNormalNEGATIVESt. Charles Hospital HospitalComment on above:Performed By: #### [id number], [id number], [id number] ####[facility] (DEFAULT)[address] [place] [address] 65622ZQ pH6.9Frtkqf2-1Ayfvenqj HospitalComment on above: Performed By: #### [id number], [id number], [id number] ####[facility] (DEFAULT)[address] [place] [address] HospitalComment on above:Performed By: #### [id number], [id number], [id number] ####[facility] (DEFAULT)[address] [place] [address] 62339 UA Spec Grav1.237Snfobs3.001-1.035[facility] HospitalComment on above:Performed By: #### [id number], [id number], [id number] ####[facility] (DEFAULT)[address] [place] [address] 55247KT Urobilinogen0.2 mg/dLNormal0.2-1.0[facility] HospitalComment on above:Performed By: #### [id number], [id number], [id number] ####[facility] (DEFAULT)[address] [place] [address] 78206Cvttc SourceClean CatchNormalSt. Charles Hospital HospitalComment on above:Performed By: #### [id number], [id number], [id number] ####[facility] (DEFAULT)[address] [place] [address] 34233W4 and C4 COMPLEMENTon 37-76-1255Zksdajlxil C3, Mdwrn316 mg/dLCritically nixg77-985Pey [facility]vue HospitalComment on above: Performed By: #### BMP #### [facility] [address] [place] [address] Dr. Zeke Guerra C4, Serum41 mg/dLCritically pmsc32-93Hoj [facility] on above:Performed By: #### BMP #### [facility] [address] [place] [address] Dr. Zeke Guerra TOTAL (CH50)on 32-92-2630Zdvfaxrzjn, Total (CH50)>60 Normal>41The [facility] HospitalComment on above:Result Comment: Age Male Female 1 - 30 days Not Estab. Not Estab. 31 days - 6 months >32 >20 7 months - 17 years >39 >39 >17 years >41 >41 NOTE: The adult ( >17 years ) reference interval range is used to flag abnormals on this report. If the patient is 17 years old or younger, use the table above to determine out of range values.Performed By: #### SEDR #### [facility] [address] [place] [address] Dr. Zeke Austin AUTO DIFFon 67-81-7800JOSG #0.0 103/ulNormal0.0-0.1Peoples Hospitalment on above:Performed By: #### CBC #### [facility] [address] [place] [address] Dr. Zeke GarciaBasophils/100 WBC (Bld)0.6 %Normal0.2-2.0[facility] Comment on above:Performed By: #### CBC #### [facility] [address] [place] [address] Dr. Zeke Thacker #0.1 103/ulNormal0.0-0.7The [facility] on above: Performed By: #### CBC #### [facility] [address] [place] [address] Dr. Zeke Hodgeosinophils/100 WBC (Bld)1.9 %Normal0.9-7.0[facility] Comment on above:Performed By: #### CBC #### [facility] [address] [place] [address] Dr. Zeke Hodgerythrocyte distribution width (RBC) [Ratio]15.4 %Critically high 11.0-15.0The [facility] HospitalComment on above:Performed By: #### CBC #### [facility] [address] [place] [address] Dr. Zeke GarciaHematocrit (Bld) [Volume fraction]36.3 %Izcaad25.0-48.0The [facility] HospitalComment on above:Performed By: #### CBC #### [facility] [address] [place] [address] Dr. Zeke GarciaHemoglobin (Bld) [Mass/Vol]12.1 g/cMZaeyyl53.0-16.0The [facility] on above:Performed By: #### CBC #### [facility] [address] [place] [address] Dr. Zeke Mahan #0.02 10e3/ulNormal0.00-0.03The [facility] on above:Performed By: #### CBC #### [facility] [address] [place] [address] Dr. Zeke Mahan %0.3 %Normal0.0-0.5The [facility] Doctors HospitalComuniversity of [facility] on above: Performed By: #### CBC #### [facility] [address] [place] [address] Dr. Zeke BeckH #1.4 103/ulNormal1.2-3.8The [facility] HospitalComun[facility] on above:Performed By: #### CBC #### [facility] [address] [place] [address] Dr. Zeke Stallingsmphocytes/100 WBC (Bld)20.4 %Critically low20.5-60.0The [facility] on above:Performed By: #### CBC #### [facility] [address] [place] [address] Dr. Zeke CalderonUAL DIFF REQNONormalThe [facility] HospitalComment on above: Performed By: #### CBC #### [facility] [address] [address] [address] Zeke Christensen (RBC) [Entitic mass]29.9 kzYohdee07.7-34.0The [facility] HospitalComment on above:Performed By: #### CBC #### [facility] [address] [place] [address] Dr. Zeke Christensen (RBC) [Mass/Vol]33.3 g/gCFaxkcb59.9-35.2The [facility] HospitalComment on above:Performed By: #### CBC #### [facility] [address] [place] [address] Dr. Zeke ChristensenV (RBC) [Entitic vol]89.6 bPGoowkt83.0-99.0The [facility] HospitalComment on above:Performed By: #### CBC #### [facility] [address] [place] [address] Dr. Zeke Alaniz #0.5 103/ulNormal0.3-0.8The [facility] HospitalComment on above:Performed By: #### CBC #### [facility] [address] [place] [address] Dr. Zeke Cerdaocytes/100 WBC (Bld)7.3 %Normal1.7-12.0The [facility] Comment on above:Performed By: #### CBC #### [facility] [address] [place] [address] Dr. Zeke Dick #4.9 103/ulNormal1.4-6.5The [facility] HospitalComment on above:Performed By: #### CBC #### [facility] [address] [place] [address] Dr. Zeke Ernstutrophils/100 WBC (Bld)69.5 %Uiqcoa46.0-75.0The [facility] HospitalComment on above:Performed By: #### CBC #### [facility] [address] [place] [address] Dr. Zeke Sonlet mean volume (Bld) [Entitic vol]8.6 fLCritically low 9.5-13.5The [facility] Centerment on above:Performed By: #### CBC #### [facility] [address] [place] [address] Dr. Zeke GarciaPLT338 103/tnBxgqmb252-893Klo [facility] HospitalComun[facility] on above: Performed By: #### CBC #### [facility] [address] [place] [address] Dr. eZke GarciaRBC4.05 106/ulCritically low4.20-5.40The [facility] on above:Performed By: #### CBC #### [facility] [address] [place] [address] Dr. Zeke GarciaWBC7.0 103/ulNormal4.0-11.0The [facility] on above: Performed By: #### CBC #### [facility] [address] [place] [address] Dr. Zeke Angeles 53-52-5744PDN6.5 mg/dLCritically high<=1.0The [facility] HospitalComun[facility] on above:Performed By: #### BMP #### [facility] [address] [place] [address] Dr. Zeke GarciaPROF 14(COMP METB)on 68-08-3787Qxbpbtf [Mass/Vol]3.0 g/dL Critically low3.4-5.0The [facility] on above:Performed By: #### BMP #### [facility] [address] [place] [address] Dr. Zeke GarciaAlbumin/Globulin [Mass ratio]0.7 {ratio}NormalThe [facility] HospitalComun[facility] on above:Performed By: #### BMP #### [facility] [address] [place] [address] Dr. Zeke Galo [Catalytic activity/Vol]107 U/NIaaakx44-195Sap [facility] HospitalComun[facility] on above:Performed By: #### BMP #### [facility] [address] [place] [address] Dr. Zeke Dorantes [Catalytic activity/Vol]17 U/HDchynm72-71Aug Kashmir HospitalComment on above:Performed By: #### BMP #### [facility] [address] [address] [address] Zeke Marin gap [Moles/Vol]12.2 mmol/LNormalThe [facility] Comment on above:Performed By: #### BMP #### [facility] [address] [address] [address] Zeke GarciaAST [Catalytic activity/Vol]16 U/FKabohq12-94Wmt [facility] HospitalComment on above:Performed By: #### BMP #### [facility] [address] [address] [address] Zeke GarciaBilirubin [Mass/Vol]0.4 mg/dLNormal0.2-1.0The [facility] Comment on above:Performed By: #### BMP #### [facility] [address] [place] [address] Dr. Zeek GarciaCalcium [Mass/Vol]9.7 mg/dLNormal8.5-10.1The [facility] Comment on above:Performed By: #### BMP #### [facility] [address] [address] [address] Zeke GarciaChloride [Moles/Vol]100 mmol/VHiguuu23-033Liv [facility] Comment on above:Performed By: #### BMP #### [facility] [address] [address] [address] Zeke GarciaCO2 [Moles/Vol]28.6 mmol/HWankft66.0-32.0The [facility] Comment on above:Performed By: #### BMP #### [facility] [address] [address] [address] Zeke GarciaCreatinine [Mass/Vol]0.63 mg/dLNormal0.55-1.02The [facility] HospitalComment on above:Performed By: #### BMP #### [facility] [address] [address] [address] Alanis ChangEGFR-AF KITTITIAN>60Normal>=60The [facility] HospitalComment on above:Performed By: #### BMP #### [facility] [address] [address] [address] Zeke HodgeGFR-NON AF KITTITIAN>60Normal>=60The [facility] HospitalComment on above:Performed By: #### BMP #### [facility] [address] [address] [address] Zeke GarciaGlobulin (S) [Mass/Vol]4.3 g/dLNormAvita Health System Galion HospitalComment on above:Performed By: #### BMP #### [facility] [address] [address] [address] Zeke GarciaGlucose [Mass/Vol]126 mg/dLCritically quhn85-232Ajx [facility] HospitalComment on above:Performed By: #### BMP #### [facility] [address] [place] [address] Dr. Zeke GarciaPotassium [Moles/Vol]3.8 mmol/LNormal3.5-5.1The [facility] Comment on above:Performed By: #### BMP #### [facility] [address] [place] [address] Dr. Zeke GarciaProtein [Mass/Vol]7.3 g/dLNormal6.4-8.2The [facility] Comment on above:Performed By: #### BMP #### [facility] [address] [place] [address] Dr. Zeke aGrciaSodium [Moles/Vol]137 mmol/OTmjoeh444-992Hbq [facility] Comment on above:Performed By: #### BMP #### [facility] [address] [place] [address] Dr. Zeke GarciaUrea nitrogen [Mass/Vol]11.0 mg/dLNormal7.0-18.0The [facility] HospitalComment on above:Performed By: #### BMP #### [facility] [address] [place] [address] Dr. Zeke Cartwright nitrogen/Creatinine [Mass ratio]17.5 mg/mgNormalThOhio Valley Surgical HospitalComment on above:Performed By: #### BMP #### [facility] [address] [address] [address] Zeke Salmeron RATE WESTERGRENon 36-80-7626JQJ RATE66 mm/hrCritically high <=30[facility] HospitalComment on above:Performed By: #### SEDR #### [facility] [address] [address] [address] Zeke Aguiar RANDOM W/MICROSCOPICon 19-54-7562KADWAUWITQIE SEENNormalNONE SEENOhio State East HospitalComment on above:Performed By: #### SEDR #### [facility] [address] [address] [address] Zeke GarciaBilirubin Ql (U)NegativeNormalNEGATIVEOhio State East Hospital Comment on above:Performed By: #### SEDR #### [facility] [address] [place] [address] Dr. Zeke Lin SEENNormalNONE SEENOhio State East HospitalComment on above:Performed By: #### SEDR #### [facility] [address] [address] [address] Zeke Leivaarity (U)CLEARNormalCLEARThe [facility] HospitalComment on above: Performed By: #### SEDR #### [facility] [address] [address] [address] Zeke Gamez (U)LT. YELLOWNormalYELLOWOhio State East HospitalComment on above:Performed By: #### SEDR #### [facility] [address] [address] [address] Zeke GarciaCrystals LM Nom (Urine sed)NONE SEENNormalNONE SEENOhio State East HospitalComment on above:Performed By: #### SEDR #### [facility] [address] [address] [address] Alanis ChangEpithelial cells LM Ql (Urine sed)FEWAbnormalNONE SEEN /RAREThe [facility] HospitalComment on above:Performed By: #### SEDR #### [facility] [address] [address] [address] Zeke Chowdhuryose Ql (U)NegativeNormalNEGATIVEOhio State East HospitalComment on above:Performed By: #### SEDR #### [facility] [address] [place] [address] Dr. Zeke GarciaHemoglobin Ql (U)SMALLAbnormalNEGSelect Medical [facility] Comment on above:Performed By: #### SEDR #### [facility] [address] [address] [address] Zeke GarciaKetones Ql (U)NegativeNormalNEGATIVEOhio State East HospitalComment on above:Performed By: #### SEDR #### [facility] [address] [place] [address] Dr. Zeke GarciaLEUKOCYTESNegativeNormalNEGATIVEOhio State East HospitalComment on above:Performed By: #### SEDR #### [facility] [address] [place] [address] Dr. Zeke GarciaMUCOUSNONE SEENNormalNONE SEENOhio State East HospitalComment on above:Performed By: #### SEDR #### [facility] [address] [place] [address] Dr. Zeke Currytrite Ql (U)NegativeNormalNEGSelect Medical Cleveland Clinic Rehabilitation Hospital, Edwin ShawComment on above:Performed By: #### SEDR #### [facility] Laboratory [address] [place] [address] Dr. Zeke GarciapH (U)5.0 [pH]Normal5-9The [facility] HospitalComment on above: Performed By: #### SEDR #### [facility] [address] [place] [address] Dr. Zeke GarciaSwuyfVOA6-6Qzusvf0-6Kgo [facility] HospitalComment on above:Performed By: #### SEDR #### [facility] [address] [place] [address] Dr. Zeke GarciaSPEC GRAVITY<=1.993Rqhxbnuu1.005-<=1.025[facility] Comment on above:Performed By: #### SEDR #### [facility] [address] [place] [address] Dr. Yilan ChangUA PROTEINNegativeNormalNEGATIVE/ TRACEThe [facility] Comment on above:Performed By: #### SEDR #### [facility] [address] [place] [address] Dr. Zeke Pachecobilkalpana Qn (U)0.2 {Lin'U}/dLNormal0.2 - 1.0[facility] HospitalComment on above:Performed By: #### SEDR #### [facility] [address] [place] [address] Dr. Zeke GarciaWBCNONKy SEENNormalNONE SEENThe [facility] HospitalComment on above: Performed By: #### SEDR #### [facility] [address] [place] [address] Dr. Zeke ReyesC AUTO DIFFon 69-03-0789XKFT #0.0 103/ulNormal0.0-0.1The [facility] HospitalComment on above:Performed By: #### CBC #### [facility] [address] [place] [address] Dr. Zeke GarciaBasophils/100 WBC (Bld)0.4 %Normal0.2-2.0[facility] Comment on above:Performed By: #### CBC #### [facility] [address] [place] [address] Dr. Zeke Thacker #0.1 103/ulNormal0.0-0.7The [facility] HospitalComment on above: Performed By: #### CBC #### [facility] [address] [place] [address] Dr. Zeke Hodgeosinophils/100 WBC (Bld)0.9 %Normal0.9-7.0[facility] Comment on above:Performed By: #### CBC #### [facility] [address] [place] [address] Dr. Zeke Hodgerythrocyte distribution width (RBC) [Ratio]15.5 %Critically high 11.0-15.0The [facility] HospitalComment on above:Performed By: #### CBC #### [facility] [address] [address] [address] Zeke Tovaratocrit (Bld) [Volume fraction]35.8 %Critically low36.0-48.0 The [facility] on above:Performed By: #### CBC #### [facility] [address] [place] [address] Dr. Zeke GarciaHemoglobin (Bld) [Mass/Vol]11.9 g/dLCritically low12.0-16.0The [facility] HospitalComun[facility] on above:Performed By: #### CBC #### [facility] [address] [place] [address] Dr. Zeke GarciaIG #0.01 10e3/ulNormal0.00-0.03The [facility] on above:Performed By: #### CBC #### [facility] [address] [place] [address] Dr. Zeke Mahan %0.1 %Normal0.0-0.5The [facility] HospitalComun[facility] on above: Performed By: #### CBC #### [facility] [address] [place] [address] Dr. Zeke Scruggs #1.5 103/ulNormal1.2-3.8The [facility] HospitalComun[facility] on above:Performed By: #### CBC #### [facility] [address] [place] [address] Dr. Zeke Stallingsmphocytes/100 WBC (Bld)20.5 %Nqdboy83.5-60.0The [facility] on above:Performed By: #### CBC #### [facility] [address] [place] [address] Dr. Zeke GarciaMANUAL DIFF REQNONormalThe [facility] HospitalComment on above: Performed By: #### CBC #### [facility] [address] [place] [address] Dr. Zeke Mosqueda (RBC) [Entitic mass]30.2 emSzrali37.7-34.0The [facility] HospitalComment on above:Performed By: #### CBC #### [facility] [address] [address] [address] Zeke ChristensenHC (RBC) [Mass/Vol]33.2 g/eEIbipui38.9-35.2The [facility] HospitalComment on above:Performed By: #### CBC #### [facility] [address] [place] [address] Dr. Zeke ChristensenV (RBC) [Entitic vol]90.9 jXOzlbra41.0-99.0The [facility] HospitalComment on above:Performed By: #### CBC #### [facility] [address] [place] [address] Dr. Zeke Alaniz #0.3 103/ulNormal0.3-0.8The [facility] HospitalComment on above:Performed By: #### CBC #### [facility] [address] [place] [address] Dr. Zeke Cerdaocytes/100 WBC (Bld)3.7 %Normal1.7-12.0[facility] Comment on above:Performed By: #### CBC #### [facility] [address] [place] [address] Dr. Zeke Dick #5.6 103/ulNormal1.4-6.5The [facility] HospitalComment on above:Performed By: #### CBC #### [facility] [address] [place] [address] Dr. Zeke Ernstutrophils/100 WBC (Bld)74.4 %Jvlsjl17.0-75.0The [facility] HospitalComment on above:Performed By: #### CBC #### [facility] [address] [place] [address] Dr. Zeke Sonlet mean volume (Bld) [Entitic vol]8.4 fLCritically low 9.5-13.5The [facility] HospitalComment on above:Performed By: #### CBC #### [facility] [address] [place] [address] Dr. Zeke GarciaPLT328 103/gePcdmry538-448Nfp [facility] HospitalComment on above: Performed By: #### CBC #### [facility] [address] [place] [address] Dr. Zeke GarciaRBC3.94 106/ulCritically low4.20-5.40The [facility] on above:Performed By: #### CBC #### [facility] [address] [place] [address] Dr. Zeke GarciaWBC7.5 103/ulNormal4.0-11.0The [facility] HospitalComment on above: Performed By: #### CBC #### [facility] [address] [place] [address] Dr. Zeke Olivas-DIMERon 02-93-6149S-DIMER2.47 mg/L FEUCritically high<=0.59The [facility] HospitalComun[facility] on above:Performed By: #### DDIM #### [facility] [address] [place] [address] Dr. Zeke CanelaDIMER COMMENTSSEE [facility] on above:Result Comment: Increases in D-Dimer concentration observed with thromboembolic events can be variable due to localization, size, and age of the thrombus. Therefore, a thromboembolic event cannot be diagnosed with certainty on the basis of the reference range. D-Dimers may also be elevated for a variety of disorders including: advanced age, , coronary disease, cancer, liver disease, infection, inflammation, hematoma, DIC, trauma, post-surgery, diabetes, thrombolytic or anticoagulant therapy, stress, and generalized hospitalization. Performed By: #### DDIM #### [facility] [address] [place] [address] Dr. Zeke GarciaPROF CHEM 8 (BAS METB)on 39-28-5541Uccxb gap [Moles/Vol]11.7 mmol/LNormalThe [facility] on above:Performed By: #### BMP #### [facility] [address] [place] [address] Dr. Zeke GarciaCalcium [Mass/Vol]9.3 mg/dLNormal8.5-10.1[facility] Comment on above:Performed By: #### BMP #### [facility] [address] [address] [address] Zeke GarciaChloride [Moles/Vol]100 mmol/LRzunkl21-906Lku [facility] Comment on above:Performed By: #### BMP #### [facility] [address] [place] [address] Dr. Zeke GarciaCO2 [Moles/Vol]29.1 mmol/NBahfls49.0-32.0The [facility] Comment on above:Performed By: #### BMP #### [facility] [address] [place] [address] Dr. Zeke GarciaCreatinine [Mass/Vol]0.58 mg/dLNormal0.55-1.02The [facility] HospitalComment on above:Performed By: #### BMP #### [facility] [address] [place] [address] Dr. Alanis ChangEGFR-AF KITTITIAN>60Normal>=60The [facility] HospitalComment on above:Performed By: #### BMP #### [facility] [address] [place] [address] Dr. Zeke HodgeGFR-NON AF KITTITIAN>60Normal>=60The [facility] HospitalComment on above:Performed By: #### BMP #### [facility] [address] [place] [address] Dr. Zeke GarciaGlucose [Mass/Vol]128 mg/dLCritically ejde25-280Syz [facility] HospitalComment on above:Performed By: #### BMP #### [facility] [address] [place] [address] Dr. Zeke GarciaPotassium [Moles/Vol]3.8 mmol/LNormal3.5-5.1The [facility] Comment on above:Performed By: #### BMP #### [facility] [address] [place] [address] Dr. Zeke GarciaSodium [Moles/Vol]137 mmol/SCflfsi142-595Cqg [facility] Comment on above:Performed By: #### BMP #### [facility] [address] [place] [address] Dr. Yilan ChangUrea nitrogen [Mass/Vol]11.0 mg/dLNormal7.0-18.0[facility] HospitalComment on above:Performed By: #### BMP #### [facility] [address] [place], [place] [address] Dr. Zeke Cartwright nitrogen/Creatinine [Mass ratio]19.0 mg/mgNoKettering Health Behavioral Medical CenterComment on above:Performed By: #### BMP #### [facility] [address] [place], [place] [address] Dr. Zeke Ball AROLDO DOP LEG RTon 65-59-8363FR AROLDO DOP LEG RTEXAMINATION: US AROLDO DOP LEG RT HISTORY: Pain ; right foot swelling COMPARISON: No relevant comparison available. FINDINGS: REGION: Right lower extremity THROMBI: None. COMPRESSIBILITY: Normal compressibility. FLOW: Normal waveform and antegrade flow between 5 and 20 cm/s. OTHER: None. IMPRESSION: 1. No deep vein thrombus within right lower extremity. Electronically authenticated by: THOMAS DEMARCO Date: 2022-08-11 10:21[facility] HospitalXR FOOT RT MIN 3 VIEWSon 08-60-6432RW FOOT RT MIN 3 VIEWSEXAM: Right foot HISTORY: Lateral foot pain for 3 days, no known injury. TECHNIQUE: 3 views of the right foot were obtained. FINDINGS: There is no evidence of fracture or dislocation. There are no suspicious bone lesions. The lateral view shows a moderate-sized heel spur and a very tiny tug enthesophyte at the insertion of the Achilles tendon. Soft tissues are normal. IMPRESSION: No acute findings. Evidence of prior plantar fasciitis and Achilles tendinosis. Electronically authenticated by: PRIYA SCHNEIDER Date: 2022-08-11 09:33[facility] HospitalGlucose Glucometer (BldC) [Mass/Vol]Ordered By: Willie Garcia on 09-60-7382Jyygujt [Mass/Vol]92 mg/dLProtestant HospitalComment on above:Random Glucose Reference Range is dependent on time and content of last meal. Glucose of more than 200 mg/dL in a nonstressed, ambulatory subject supports the diagnosis of Diabetes Mellitus.COVID-19 Positive/NegativeOrdered By: Willie Garcia on 70-42-8923WJZL-CoV-2 (COVID-19) N gene DAVID+probe Ql (Resp) NegativeNegativeProtestant HospitalComment on above:Testing for SARS-CoV-2 by RT-PCRThis test was developed and its performance characteristics determined by [employer] ([employer] and validated at the [facility]. This test has not been FDA cleared or approved. This test has been authorized by FDA under an Emergency Use Authorization (EUA). This test has been validated in accordance with the FDA's Guidance Document (Policy for Diagnostics Testing in Laboratories Certified to Perform High Complexity Testing under CLIA prior to Emergency Use Authorization for Coronavirus Disease- 2019 during the Public Health Emergency) issued on December 18, 2019. This test is only authorized for the duration of time the declaration that circumstances exist justifying the authorization of the emergency use of in vitro diagnostic tests for detection of SARS-CoV-2 virus and/or diagnosis of COVID-19 infection under section 564(b)(1) of the Act, 21 U.S.C. 360bbb-3(b)(1), unless the authorization is terminated or revoked sooner.Basophils Auto (Bld) [#/Vol] Ordered By: Willie Garcia on 46-83-3246Umhhtawgz (Bld) [#/Vol]0.0 10*3/uL0.0-0.2 [facility] HospitalBasophils/100 WBC Auto (Bld)Ordered By: Willie Garcia on 03-04-2767Izxaigzdr/100 WBC (Bld)0.3 %.[facility] HospitalCreatinine and Glomerular filtration rate.predicted panel (S/P/Bld)Ordered By: Willie Garcia on 78-10-4879Abzmujvhcv [Mass/Vol]0.69 mg/dL0.44-1.03[facility] HospitalEosinophils Auto (Bld) [#/Vol]Ordered By: Willie Garcia on 03-83-4640Qnlakrexqrj (Bld) [#/Vol]0.0 10*3/uL0.0-0.45[facility] HospitalEosinophils/100 WBC Auto (Bld)Ordered By: Willie Garcia on 07-12-2022 Eosinophils/100 WBC (Bld)0.1 %.[facility] HospitalErythrocyte distribution width Auto (RBC) [Ratio]Ordered By: Willie Garcia on 07-12-2022 Erythrocyte distribution width (RBC) [Ratio]18.9 %11.9-15.3FOhioHealth Mansfield HospitalEstimated glomerular filtration rate (GFR) non- Ordered By: Willie Garcia on 07-70-3515LOI/1.73 sq M.predicted among non-blacks MDRD (S/P/Bld) [Vol rate/Area]> 60 mL/MinProtestant Hospital Hematocrit Auto (Bld) [Volume fraction]Ordered By: Willie Garcia on 07-12-2022 Hematocrit (Bld) [Volume fraction]37.5 %34.0-46.4FOhioHealth Mansfield HospitalHemoglobin [Mass/volume] in BloodOrdered By: Willie Garcia on 07-12-2022 Hemoglobin (Bld) [Mass/Vol]12.2 g/dL11.8-15.4FOhioHealth Mansfield Hospital Laboratory - Hematology and Cell countsOrdered By: Willie Garcia on 07-12-2022 Nucleated RBC/100 WBC (Bld) [Ratio]0.1 %0-0.5FOhioHealth Mansfield Hospital Leukocytes [#/volume] in Blood by Automated countOrdered By: Willie Garcia on 96-11-2929NEV (Bld) [#/Vol]8.2 10*3/uL4.5-11.0[facility] Lymphocytes Auto (Bld) [#/Vol]Ordered By: Willie Garcia on 19-10-6928Vzodpcypatf (Bld) [#/Vol]0.6 10*3/uL1.00-4.8[facility] HospitalLymphocytes/100 WBC Auto (Bld)Ordered By: Willie Garcia on 99-14-8145Ynqvpyaqjwo/100 WBC (Bld)7.4 %.[facility] Auto (RBC) [Entitic mass]Ordered By: Willie Garcia on 89-99-9098XTC (RBC) [Entitic mass]30.5 pg24.7-34.3FUniversity Hospitals TriPoint Medical CenterHC Auto (RBC) [Mass/Vol]Ordered By: Willie Garcia on 58-52-7428SDEA (RBC) [Mass/Vol]32.5 g/dL32.0-35.0[facility] HospitalMCV Auto (RBC) [Entitic vol]Ordered By: Willie Garcia on 87-51-8103XGA (RBC) [Entitic vol] 94.1 pZ30-533NfhzisvwzProtestant HospitalMonocytes Auto (Bld) [#/Vol] Ordered By: Willie Garcia on 59-44-6781Oreftwqvm (Bld) [#/Vol]0.1 10*3/uL0.0-0.8 [facility] HospitalMonocytes/100 WBC Auto (Bld)Ordered By: Willie Garcia on 32-71-9011Wugejgety/100 WBC (Bld)1.1 %.[facility] HospitalNeutrophils Auto (Bld) [#/Vol]Ordered By: Willie Garcia on 07-12-2022 Neutrophils (Bld) [#/Vol]7.4 10*3/uL1.8-7.7FOhioHealth Mansfield Hospital Neutrophils/100 WBC Auto (Bld)Ordered By: Willie Garcia on 07-12-2022 Neutrophils/100 WBC (Bld)91.1 %.[facility] HospitalNo Panel InformationOrdered By: Willie Garcia on 51-71-2433Azxfnksox GFR ()> 60 mL/MinProtestant HospitalComment on above:GFR estimated reference range: According to KDOQI guidelines, <60 ml/min/1.73m2 is sufficient todiagnose a patient with chronic kidney disease.Pharmacy Creatinine Clearance (ChemN/[facility] Medical CenterPlatelet mean volume Auto (Bld) [Entitic vol]Ordered By: Willie Garcia on 24-48-3772Tnyqnedx mean volume (Bld) [Entitic vol]6.8 fL6.3-10.7FOhioHealth Mansfield HospitalPlatelets Auto (Bld) [#/Vol]Ordered By: Willie Garcia on 85-82-4462Xvqwqeomt (Bld) [#/Vol]283 10*3/uL 150-450Protestant HospitalRBC Auto (Bld) [#/Vol]Ordered By: Willie Garcia on 36-54-1565AHU (Bld) [#/Vol]3.99 10*6/uL3.60-5.00[facility] Hospitalerum or plasma anion gap determinationOrdered By: Willie Garcia on 57-69-1310Xhtas gap [Moles/Vol]11.3 mmol/L6.0-15.0[facility] Hospitalerum or plasma calcium measurement (mass/volume)Ordered By: Willie Garcia on 12-60-2937Qkblald [Mass/Vol]9.4 mg/dL8.2-10.2FOhioHealth Mansfield Hospital Serum or plasma chloride measurement (moles/volume)Ordered By: Willie Garcia on 44-11-9523Ixzmpbod [Moles/Vol]102 mmol/M70-508SrjtkptvzProtestant Hospital Serum or plasma glucose measurement (mass/volume)Ordered By: Willie Garcia on 38-98-9629Eemnpct [Mass/Vol]149 mg/tZ99-951WruxpozncProtestant Hospital Comment on above:ADA recommended reference rangeRandom Glucose Reference Range is dependent on time and content of last meal. Glucose of more than 200 mg/dL in a nonstressed, ambulatory subject supports the diagnosisof Diabetes Mellitus. Serum or plasma potassium measurement (moles/volume)Ordered By: Willie Garcia on 85-40-1380Edryxetsl [Moles/Vol]4.2 mmol/L3.5-5.1FWadsworth-Rittman Hospitalerum or plasma sodium measurement (moles/volume)Ordered By: Willie Garcia on 79-21-2458Evxpmy [Moles/Vol]135 mmol/Y296-015QytvribizProtestant Hospital Serum or plasma total carbon dioxide measurement (moles/volume)Ordered By: Willie Garcia on 36-47-7888XC3 [Moles/Vol]25.9 mmol/L22.0-30.0[facility] Hospitalerum or plasma urea nitrogen measurement (mass/volume)Ordered By: Willie Garcia on 58-66-8062Spqa nitrogen [Mass/Vol]14 mg/dL9-23Protestant HospitalC3 and C4 COMPLEMENTon 22-42-0843Ncsvgmkzmh C3, Xoydc056 mg/dL Idnret39-903WqpOhio State East HospitalComment on above:Performed By: #### BMP #### [facility] [address] [place] [address] Dr. Zeke Guerra C4, Serum29 mg/yIKxqnpk28-96Eux [facility] Comment on above:Performed By: #### BMP #### [facility] [address] [place] [address] Dr. Zeke Guerra TOTAL (CH50)on 69-79-8104Jmrdtsbevc, Total (CH50)>60 Normal>41The [facility] HospitalComment on above:Result Comment: Age Male Female 1 - 30 days Not Estab. Not Estab. 31 days - 6 months >32 >20 7 months - 17 years >39 >39 >17 years >41 >41 NOTE: The adult ( >17 years ) reference interval range is used to flag abnormals on this report. If the patient is 17 years old or younger, use the table above to determine out of range values.Performed By: #### SEDR #### [facility] [address] [place] [address] Dr. Zeke Austin AUTO DIFFon 79-29-6992NZOT #0.1 103/ulNormal0.0-0.1[facility] HospitalComment on above:Performed By: #### SEDR #### [facility] [address] [place] [address] Dr. Zeke GarciaBasophils/100 WBC (Bld)0.6 %Normal0.2-2.0[facility] Comment on above:Performed By: #### SEDR #### [facility] [address] [place] [address] Dr. Zeke Thacker #0.2 103/ulNormal0.0-0.7The [facility] HospitalComment on above: Performed By: #### SEDR #### [facility] [address] [place] [address] Dr. Zeke Hodgeosinophils/100 WBC (Bld)2.6 %Normal0.9-7.0The [facility] Comment on above:Performed By: #### SEDR #### [facility] [address] [place] [address] Dr. Zeke Hodgerythrocyte distribution width (RBC) [Ratio]13.2 %Aurcdw55.0-15.0 The [facility] HospitalComment on above:Performed By: #### SEDR #### [facility] [address] [place] [address] Dr. Zeke GarciaHematocrit (Bld) [Volume fraction]38.9 %Hwtrfc10.0-48.0The [facility] HospitalComment on above:Performed By: #### SEDR #### [facility] [address] [place] [address] Dr. Zeke GarciaHemoglobin (Bld) [Mass/Vol]12.9 g/qXHullim68.0-16.0The [facility] HospitalComment on above:Performed By: #### SEDR #### [facility] [address] [place] [address] Dr. Zeke Mahan #0.02 10e3/ulNormal0.00-0.03The [facility] HospitalComment on above:Performed By: #### SEDR #### [facility] [address] [place] [address] Dr. Zeke Mahan %0.3 %Normal0.0-0.5The [facility] HospitalComment on above: Performed By: #### SEDR #### [facility] [address] [place] [address] Dr. Zeke StallingsMPH #1.5 103/ulNormal1.2-3.8The [facility] HospitalComment on above:Performed By: #### SEDR #### [facility] [address] [place] [address] Dr. Zeke Stallingsmphocytes/100 WBC (Bld)19.3 %Critically low20.5-60.0The [facility] HospitalComuniversity of [facility] on above:Performed By: #### SEDR #### [facility] [address] [place] [address] Dr. Zeke CalderonUAL DIFF REQNONormalThe [facility] HospitalComment on above: Performed By: #### SEDR #### [facility] [address] [address] [address] Zeke ChristensenH (RBC) [Entitic mass]32.7 otOayfhj36.7-34.0The [facility] HospitalComment on above:Performed By: #### SEDR #### [facility] [address] [place] [address] Dr. Zeke Christensen (RBC) [Mass/Vol]33.2 g/tHIbbpkg54.9-35.2The [facility] HospitalComment on above:Performed By: #### SEDR #### [facility] [address] [place] [address] Dr. Zeke ChristensenV (RBC) [Entitic vol]98.5 lMNgxbpv31.0-99.0The [facility] HospitalComment on above:Performed By: #### SEDR #### [facility] [address] [place] [address] Dr. Zeke Alaniz #0.5 103/ulNormal0.3-0.8The [facility] HospitalComment on above:Performed By: #### SEDR #### [facility] [address] [place] [address] Dr. Zeke Cerdaocytes/100 WBC (Bld)5.8 %Normal1.7-12.0The [facility] Comment on above:Performed By: #### SEDR #### [facility] [address] [place] [address] Dr. Zeke ErnstUT #5.7 103/ulNormal1.4-6.5The [facility] HospitalComment on above:Performed By: #### SEDR #### [facility] [address] [place] [address] Dr. Zeke Ernstutrophils/100 WBC (Bld)71.4 %Vchjkr05.0-75.0The [facility] HospitalComment on above:Performed By: #### SEDR #### [facility] [address] [place] [address] Dr. Zeke Sonlet mean volume (Bld) [Entitic vol]8.7 fLCritically low 9.5-13.5The [facility] HospitalComment on above:Performed By: #### SEDR #### [facility] [address] [place] [address] Dr. Zeke GarciaPLT285 103/uvVcesxx298-777Oye [facility] HospitalComment on above: Performed By: #### SEDR #### [facility] [address] [place] [address] Dr. Zeke GarciaRBC3.95 106/ulCritically low4.20-5.40The [facility] HospitalComment on above:Performed By: #### SEDR #### [facility] [address] [place] [address] Dr. Zeke GarciaWBC8.0 103/ulNormal4.0-11.0The [facility] HospitalComment on above: Performed By: #### SEDR #### [facility] [address] [place] [address] Dr. Zeke Angeles 35-33-4777ZVY [Mass/Vol]mg/LNormal<=1.0The [facility] HospitalComment on above:Performed By: #### BMP #### [facility] [address] [place] [address] Dr. Zeke eKnt 14(COMP METB)on 44-40-9176Xflkxqz [Mass/Vol]3.7 g/dLNormal 3.4-5.0The [facility] HospitalComment on above:Performed By: #### BMP #### [facility] [address] [place] [address] Dr. Zeke GarciaAlbumin/Globulin [Mass ratio]1.1 {ratio}NormalThe [facility] HospitalComment on above:Performed By: #### BMP #### [facility] [address] [place] [address] Dr. Zeke Galo [Catalytic activity/Vol]121 U/LCritically yzwo14-780Llm [facility] HospitalComment on above:Performed By: #### BMP #### [facility] [address] [place] [address] Dr. Zeke Dorantes [Catalytic activity/Vol]26 U/QOlvgrp83-53Qip [facility] HospitalComment on above:Performed By: #### BMP #### [facility] [address] [address] [address] Zeke Cintronon gap [Moles/Vol]10.1 mmol/LNormalOhio State East Hospital Comment on above:Performed By: #### BMP #### [facility] [address] [address] [address] Zeke GarciaAST [Catalytic activity/Vol]19 U/BIyumma79-38Lov [facility] HospitalComment on above:Performed By: #### BMP #### [facility] [address] [address] [address] Zeke GarciaBilirubin [Mass/Vol]0.6 mg/dLNormal0.2-1.0[facility] Comment on above:Performed By: #### BMP #### [facility] [address] [address] [address] Zeke GarciaCalcium [Mass/Vol]9.5 mg/dLNormal8.5-10.1[facility] Comment on above:Performed By: #### BMP #### [facility] [address] [address] [address] Zeke GarciaChloride [Moles/Vol]103 mmol/SYwheot34-782CdnOhio State East Hospital Comment on above:Performed By: #### BMP #### [facility] [address] [address] [address] Zeke GarciaCO2 [Moles/Vol]28.9 mmol/PFvenxt25.0-32.0[facility] Comment on above:Performed By: #### BMP #### [facility] [address] [address] [address] Zeke GarciaCreatinine [Mass/Vol]0.58 mg/dLNormal0.55-1.02The [facility] HospitalComment on above:Performed By: #### BMP #### [facility] [address] [address] [address] Alanis ChangEGFR-AF KITTITIAN>60Normal>=60The [facility] HospitalComment on above:Performed By: #### BMP #### [facility] [address] [address] [address] Zeke HodgeGFR-NON AF KITTITIAN>60Normal>=60The [facility] HospitalComment on above:Performed By: #### BMP #### [facility] [address] [address] [address] Zeke GarciaGlobulin (S) [Mass/Vol]3.3 g/dLNormAvita Health System Galion HospitalComment on above:Performed By: #### BMP #### [facility] [address] [address] [address] Zeke GarciaGlucose [Mass/Vol]97 mg/xUFgfsul59-501Spj [facility] Comment on above:Performed By: #### BMP #### [facility] [address] [place] [address] Dr. Zeke GarciaPotassium [Moles/Vol]4.0 mmol/LNormal3.5-5.1The [facility] Comment on above:Performed By: #### BMP #### [facility] [address] [address] [address] Zeke GarciaProtein [Mass/Vol]7.0 g/dLNormal6.4-8.2The [facility] Comment on above:Performed By: #### BMP #### [facility] [address] [place] [address] Dr. Zeke GarciaSodium [Moles/Vol]138 mmol/VRxrykd113-162Iir [facility] Comment on above:Performed By: #### BMP #### [facility] [address] [address] [address] Zeke GarciaUrea nitrogen [Mass/Vol]15.0 mg/dLNormal7.0-18.0The [facility] HospitalComment on above:Performed By: #### BMP #### [facility] [address] [address] [address] Zeke GarciaUrea nitrogen/Creatinine [Mass ratio]25.9 mg/mgNormAvita Health System Galion HospitalComment on above:Performed By: #### BMP #### [facility] [address] [address] [address] Zeke Salmeron RATE WESTERGRENon 14-17-8105ANP RATE11 mm/hrNormal<=30The [facility] HospitalComment on above:Performed By: #### SEDR #### [facility] [address] [address] [address] Zeke Aguiar RANDOM W/MICROSCOPICon 36-92-8510TTDXZQPMKBBD SEENNormalNONE SEENOhio State East HospitalComment on above:Performed By: #### BMP #### [facility] [address] [address] [address] Zeke GarciaBilirubin Ql (U)NegativeNormalNEGATIVEThe [facility] Comment on above:Performed By: #### BMP #### [facility] [address] [address] [address] Zeke GarciaCASTNONE SEENNormalNONE SEENOhio State East HospitalComment on above:Performed By: #### BMP #### [facility] [address] [address] [address] Zeke Leivaarity (U)CLEARNormalCLEAROhio State East HospitalComment on above: Performed By: #### BMP #### [facility] [address] [address] [address] Zeke Gamez (U)LT. YELLOWNormalYELLOWOhio State East HospitalComment on above:Performed By: #### BMP #### [facility] [address] [address] [address] Zeke GarciaCrystals LM Nom (Urine sed)NONE SEENNormalNONE SEENOhio State East HospitalComment on above:Performed By: #### BMP #### [facility] [address] [address] [address] Alanis ChangEpithelial cells LM Ql (Urine sed)RARENormalNONE SEEN /RAREThe [facility] HospitalComment on above:Performed By: #### BMP #### [facility] [address] [address] [address] Yilan ChangGlucose Ql (U)NegativeNormalNEGATIVEOhio State East HospitalComment on above:Performed By: #### BMP #### [facility] [address] [address] [address] Zeke GarciaHemoglobin Ql (U)TRACE-INTACTAbnormalNEGATIVEOhio State East HospitalComment on above:Performed By: #### BMP #### [facility] [address] [address] [address] Zeke GarciaKetones Ql (U)NegativeNormalNEGATIVEOhiohealth Nelsonville Health Center HospitalComment on above:Performed By: #### BMP #### [facility] [address] [address] [address] Zeke GarciaLEUKOCYTESNegativeNormalNEGATIVEOhio State East HospitalComment on above:Performed By: #### BMP #### [facility] [address] [place] [address] Dr. Zeke GarciaMUCOUSNONE SEENNormalNONE SEENOhio State East HospitalComment on above:Performed By: #### BMP #### [facility] [address] [place] [address] Dr. Zeke GarciaNitrite Ql (U)NegativeNormalNEGATIVEOhio State East HospitalComment on above:Performed By: #### BMP #### [facility] [address] [place] [address] Dr. Zeke GarciapH (U)6.0 [pH]Normal5-9The [facility] HospitalComment on above: Performed By: #### BMP #### [facility] [address] [place] [address] Dr. Zeke GarciaIkfdgZFF3-3Mtnedr1-7Lba [facility] HospitalComment on above:Performed By: #### BMP #### [facility] [address] [place] [address] Dr. Zeke GarciaSPEC GRAVITY<=1.720Gcypveca7.005-<=1.025The [facility] on above:Performed By: #### BMP #### [facility] [address] [place] [address] Dr. Zeke Aguiar PROTEINNegativeNormalNEGATIVE/ TRACEThe [facility] Comment on above:Performed By: #### BMP #### [facility] [address] [address] [address] Zeke Pachecobilkalpana Qn (U)0.2 {Lin'U}/dLNormal0.2 - 1.0The [facility] HospitalComment on above:Performed By: #### BMP #### [facility] [address] [place], [place] [address] Dr. Zeke LopezBCNONKy SEENNormalNONE SEENThe [facility] HospitalComment on above: Performed By: #### BMP #### [facility] [address] [address] [address] Zeke GarciaXR Shoulder Complete Right*on [id number] Shoulder Complete Right*HISTORY: Right arm radiation, acute shoulder pain FINDINGS: Slight increase in acromiohumeral distance suggests the presence of a joint effusion. Large medial and posterolateral humeral head osteophyte formation, mild glenohumeral joint space loss. Nonacute appearing erosion upon the lateral aspect of the humeral head, focal overlying soft tissue swelling suggests the presence of a soft tissue mass. Moderate inferior AC joint arthritic changes, osteophyte formation with a distal subacromial spur (probable impingement). No AC separation or acute fracture. IMPRESSION: 1. Severe glenohumeral, AC joint arthritis (probable joint effusion). 2. No acute fracture. 3. Nonaggressive, nonacute appearing depression upon the lateral humeral head (possible overlying mass). As clinically indicated (as tolerated by the patient), MRI may be of assistance for further characterization. Report reported and signed by Greg Vargas on 02/01/2022 1501NormalNorthern Rockville General HospitalXR Spine Cervical Complete*on [id number] Spine Cervical Complete*HISTORY: Radiating right arm pain FINDINGS: Cervical vertebral bodies are preserved in height. 2 mm anterolisthesis of C5 upon C6 and C6 upon C7. Moderate disc space loss with mild anterior and posterior osteophyte formation involving C6/7. No fracture or focal soft tissue swelling is seen. Prevertebral soft tissues are normal. Diffuse facet arthropathy, multilevel moderate to severe neural foraminal stenosis (right C3/4 and bilateral C4/5 through C6/7). IMPRESSION: 1. Severe arthritis, multilevel moderate to severe neural foraminal stenosis. 2. Lower cervical spondylolisthesis. Flexion and extension maneuvers may be of assistance. Report reported and signed by Greg Vargas on 02/01/[address] [facility]XR HAND ANA MIN 3Von 27-90-5208UM HAND ANA MIN 3V EXAMINATION: XR HAND ANA MIN 3V, XR WRIST ANA MIN 3 V HISTORY: Hand pain COMPARISON: No relevant comparison available. FINDINGS: RIGHT FINDINGS: BONES: No acute fracture or dislocation. Moderate subchondral cystic changes most significant throughout the carpus and along the margins of the phalanges and metacarpals. There is joint space narrowing and marginal osteophyte formation with bmhi-qe-ijzg articulation of the first and second metacarpal phalangeal joints and second distal interphalangeal joint SOFT TISSUES: Negative. No visible soft tissue swelling. OTHER: Negative. LEFT FINDINGS: BONES: No acute fracture-dislocation. Moderate subchondral cystic changes throughout the carpus and along the margins of the metacarpals and phalanges. Joint space narrowing and marginal osteophyte formation most significant along the first metacarpal phalangeal and second and third distal interphalangeal joints SOFT TISSUES: Negative. No visible soft tissue swelling. OTHER: Negative. 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 Zeke GarciaComplement C4, Serum32 mg/lWLxduyo18-66KnyOhio State East Hospital Comment on above:Performed By: #### CSUITE #### [facility] [address] [address] [address] Zeke GarciaCOMPLEMENT TOTAL (CH50)on 94-36-7726Syltpskqxa, Total (CH50)>60 Normal>41The [facility] HospitalComment on above:Result Comment: Age Male Female 1 - 30 days Not Estab. Not Estab. 31 days - 6 months >32 >20 7 months - 17 years >39 >39 >17 years >41 >41 NOTE: The adult ( >17 years ) reference interval range is used to flag abnormals on this report. If the patient is 17 years old or younger, use the table above to determine out of range values.Performed By: #### SEDR #### [facility] [address] [place] [address] Dr. Zeke Austin AUTO DIFFon 76-27-5200PGCO #0.1 103/ulNormal0.0-0.1The [facility] HospitalComment on above:Performed By: #### BMP #### [facility] [address] [place] [address] Dr. Zeke GarciaBasophils/100 WBC (Bld)0.9 %Normal0.2-2.0[facility] Comment on above:Performed By: #### BMP #### [facility] [address] [place] [address] Dr. Zeke Thacker #0.1 103/ulNormal0.0-0.7The [facility] HospitalComment on above: Performed By: #### BMP #### [facility] [address] [place] [address] Dr. Zeke Hodgeosinophils/100 WBC (Bld)1.7 %Normal0.9-7.0[facility] Comment on above:Performed By: #### BMP #### [facility] [address] [place] [address] Dr. Zeke Hodgerythrocyte distribution width (RBC) [Ratio]13.2 %Ntnqbt08.0-15.0 The [facility] HospitalComment on above:Performed By: #### BMP #### [facility] [address] [place] [address] Dr. Zeke GarciaHematocrit (Bld) [Volume fraction]41.1 %Nvgpdq76.0-48.0The [facility] HospitalComment on above:Performed By: #### BMP #### [facility] [address] [address] [address] Zeke GarciaHemoglobin (Bld) [Mass/Vol]13.7 g/sYHhmnmv35.0-16.0The [facility] HospitalComment on above:Performed By: #### BMP #### [facility] [address] [place] [address] Dr. Zeke Mahan #0.02 10e3/ulNormal0.00-0.03The [facility] HospitalComment on above:Performed By: #### BMP #### [facility] [address] [place] [address] Dr. Zeke Mahan %0.3 %Normal0.0-0.5The [facility] HospitalComment on above: Performed By: #### BMP #### [facility] [address] [place] [address] Dr. Zeke Scruggs #1.7 103/ulNormal1.2-3.8The [facility] HospitalComment on above:Performed By: #### BMP #### [facility] [address] [place] [address] Dr. Zeke Beckhocytes/100 WBC (Bld)26.8 %Jwjdew37.5-60.0The [facility] HospitalComuniversity of [facility] on above:Performed By: #### BMP #### [facility] [address] [place] [address] Dr. Zeke CalderonUAL DIFF REQNONormalThe [facility] HospitalComment on above: Performed By: #### BMP #### [facility] [address] [place] [address] Dr. Zeke Christensen (RBC) [Entitic mass]33.1 ubXqmqyr14.7-34.0The [facility] HospitalComment on above:Performed By: #### BMP #### [facility] [address] [place] [address] Dr. Zeke Christensen (RBC) [Mass/Vol]33.3 g/vSJqfchw20.9-35.2The [facility] HospitalComment on above:Performed By: #### BMP #### [facility] [address] [address] [address] Zeke ChristensenV (RBC) [Entitic vol]99.3 fLCritically high81.0-99.0The [facility] HospitalComment on above:Performed By: #### BMP #### [facility] [address] [place] [address] Dr. Zeke Alaniz #0.3 103/ulNormal0.3-0.8The [facility] HospitalComment on above:Performed By: #### BMP #### [facility] [address] [place] [address] Dr. Zeke Cerdaocytes/100 WBC (Bld)5.3 %Normal1.7-12.0The [facility] Comment on above:Performed By: #### BMP #### [facility] [address] [place] [address] Dr. Zeke Dick #4.2 103/ulNormal1.4-6.5The [facility] HospitalComment on above:Performed By: #### BMP #### [facility] [address] [place] [address] Dr. Zeke Ernstutrophils/100 WBC (Bld)65.0 %Beqvyu24.0-75.0The [facility] HospitalComment on above:Performed By: #### BMP #### [facility] [address] [place] [address] Dr. Zeke Sonlet mean volume (Bld) [Entitic vol]9.2 fLCritically low 9.5-13.5The [facility] HospitalComment on above:Performed By: #### BMP #### [facility] [address] [place] [address] Dr. Zeke GuevaraT272 103/xbIlkuha910-300Fow [facility] HospitalComment on above: Performed By: #### BMP #### [facility] [address] [place] [address] Dr. Zeke GarciaRBC4.14 106/ulCritically low4.20-5.40The [facility] HospitalComment on above:Performed By: #### BMP #### [facility] [address] [place] [address] Dr. Zeke GarciaWBC6.5 103/ulNormal4.0-11.0The [facility] HospitalComment on above: Performed By: #### BMP #### [facility] [address] [place] [address] Dr. Zeke Angeles 41-47-1522ULR [Mass/Vol]mg/LNormal<=1.0The [facility] HospitalComment on above:Performed By: #### CRP, CMP #### [facility] [address] [place] [address] Dr. Zeke Kent 14(COMP METB)on 79-80-9173Nfypqmj [Mass/Vol]3.7 g/dLNormal 3.5-5.0The [facility] HospitalComment on above:Performed By: #### CRP, CMP #### [facility] [address] [place] [address] Dr. Zeke GarciaAlbumin/Globulin [Mass ratio]1.0 {ratio}NormalThe [facility] HospitalComment on above:Performed By: #### CRP, CMP #### [facility] [address] [place] [address] Dr. Zeke Galo [Catalytic activity/Vol]111 U/DGcciha89-724Eqi [facility]ner Medical Centerment on above:Performed By: #### CRP, CMP #### [facility] [address] [place] [address] Dr. Zeke Dorantes [Catalytic activity/Vol]28 U/LNormal9-52The [facility] Comment on above:Performed By: #### CRP, CMP #### [facility] [address] [place] [address] Dr. Zeke Marin gap [Moles/Vol]10.8 mmol/LNormalThe [facility] Comment on above:Performed By: #### CRP, CMP #### [facility] [address] [place] [address] Dr. Yilan ChangAST [Catalytic activity/Vol]20 U/RWpkngb21-55Bpn [facility] HospitalComment on above:Performed By: #### CRP, CMP #### [facility] [address] [place] [address] Dr. Zeke GarciaBilirubin [Mass/Vol]0.6 mg/dLNormal0.2-1.3The [facility] Comment on above:Performed By: #### CRP, CMP #### [facility] [address] [place] [address] Dr. Zeke GarciaCalcium [Mass/Vol]9.7 mg/dLNormal8.4-10.2The [facility] Comment on above:Performed By: #### CRP, CMP #### [facility] [address] [place] [address] Dr. Zeke GarciaChloride [Moles/Vol]102 mmol/OQbahna77-902Mlq [facility] Comment on above:Performed By: #### CRP, CMP #### [facility] [address] [place] [address] Dr. Zeke GarciaCO2 [Moles/Vol]31.1 mmol/LCritically high22.0-30.0The [facility] HospitalComment on above:Performed By: #### CRP, CMP #### [facility] [address] [place] [address] Dr. Zeke GarciaCreatinine [Mass/Vol]0.56 mg/dLNormal0.52-1.04The [facility] HospitalComment on above:Performed By: #### CRP, CMP #### [facility] [address] [place] [address] Dr. Zeke HodgeGFR-AF KITTITIAN>60Normal>=60The [facility] HospitalComment on above:Performed By: #### CRP, CMP #### [facility] [address] [place] [address] Dr. Zeke HodgeGFR-NON AF KITTITIAN>60Normal>=60The [facility] HospitalComment on above:Performed By: #### CRP, CMP #### [facility] [address] [place] [address] Dr. Zeke GarciaGlobulin (S) [Mass/Vol]3.7 g/dLNormAvita Health System Galion HospitalComment on above:Performed By: #### CRP, CMP #### [facility] [address] [address] [address] Zeke GarciaGlucose [Mass/Vol]99 mg/pRHudqzp81-533TbwOhio State East Hospital Comment on above:Performed By: #### CRP, CMP #### [facility] [address] [address] [address] Zeke GarciaPotassium [Moles/Vol]3.9 mmol/LNormal3.4-5.0The [facility] Comment on above:Performed By: #### CRP, CMP #### [facility] [address] [place] [address] Dr. Zeke GarciaProtein [Mass/Vol]7.4 g/dLNormal6.1-8.2[facility] Comment on above:Performed By: #### CRP, CMP #### [facility] [address] [place] [address] Dr. Zeke GarciaSodium [Moles/Vol]140 mmol/ZBxlqck178-533Yto [facility] Comment on above:Performed By: #### CRP, CMP #### [facility] [address] [place] [address] Dr. Zeke GarciaUrea nitrogen [Mass/Vol]13.0 mg/dLNormal7.0-17.0The [facility] HospitalComment on above:Performed By: #### CRP, CMP #### [facility] [address] [place] [address] Dr. Zeke GarciaUrea nitrogen/Creatinine [Mass ratio]23.2 mg/mgNoKettering Health Behavioral Medical CenterComment on above:Performed By: #### CRP, CMP #### [facility] [address] [place] [address] Dr. Zeke Salmeron RATE WESTERGRENon 37-36-4572CZH RATE11 mm/hrNormal<=30The [facility] HospitalComment on above:Performed By: #### SEDR #### [facility] [address] [address] [address] Zeke Aguiar RANDOM W/MICROSCOPICon 46-71-6774ROENBTPFNCIO SEENNormalNONE SEENOhio State East HospitalComment on above:Performed By: #### SEDR #### [facility] [address] [address] [address] Zeke GarciaBilirubin Ql (U)NegativeNormalNEGATIVEKindred Hospital Dayton on above:Performed By: #### SEDR #### [facility] [address] [address] [address] Zeke GarciaCASTNONE SEENNormalNONE SEENOhio State East HospitalComment on above:Performed By: #### SEDR #### [facility] [address] [place] [address] Dr. Zeke GarciaClarity (U)CLEARNormalCLEAROhio State East HospitalComment on above: Performed By: #### SEDR #### [facility] [address] [address] [address] Zeke Chualor (U)LT. YELLOWNormalYELLOWOhio State East HospitalComment on above:Performed By: #### SEDR #### [facility] [address] [place] [address] Dr. Zeke GarciaCrystals LM Nom (Urine sed)NONE SEENNormalNONE SEENOhio State East HospitalComment on above:Performed By: #### SEDR #### [facility] [address] [place] [address] Dr. Alanis ChangEpithelial cells LM Ql (Urine sed)RARENormalNONE SEEN /RAREOhio State East HospitalComment on above:Performed By: #### SEDR #### [facility] [address] [place] [address] Dr. Zeke GarciaGlucose Ql (U)NegativeNormalNEGATIVEOhio State East HospitalComment on above:Performed By: #### SEDR #### [facility] [address] [place] [address] Dr. Zeke GarciaHemoglobin Ql (U)TRACE-INTACTAbnormalNEGATIVEOhio State East HospitalComment on above:Performed By: #### SEDR #### [facility] [address] [address] [address] Zeke Fuentesones Ql (U)NegativeNormalNEGATIVEOhio State East HospitalComment on above:Performed By: #### SEDR #### [facility] [address] [address] [address] Zeke GarciaLEUKOCYTESNegativeNormalNEGATIVEThe [facility] HospitalComment on above:Performed By: #### SEDR #### [facility] [address] [place] [address] Dr. Zeke GivensCOUSNONKy SEENNormalNONE SEENOhio State East HospitalComment on above:Performed By: #### SEDR #### [facility] [address] [place] [address] Dr. Zeke Currytrite Ql (U)NegativeNormalNEGATIVEOhio State East HospitalComment on above:Performed By: #### SEDR #### [facility] [address] [place] [address] Dr. Zeke GarciapH (U)6.0 [pH]Normal5-9[facility] HospitalComment on above: Performed By: #### SEDR #### [facility] [address] [place] [address] Dr. Zeke GarciaEktkoQEL7-4Nqfaih3-5Gkn [facility] HospitalComment on above:Performed By: #### SEDR #### [facility] [address] [place] [address] Dr. Zeke GarciaSPEC GRAVITY<=1.589Exhoronp4.005-<=1.025[facility] Comment on above:Performed By: #### SEDR #### [facility] [address] [place] [address] Dr. Zeke Aguiar PROTEINNegativeNormalNEGATIVE/ TRACEOhio State East Hospital Comment on above:Performed By: #### SEDR #### [facility] [address] [place] [address] Dr. Yilan ChangUrobilinogen Qn (U)0.2 {Lin'U}/dLNormal0.2 - 1.0The [facility] HospitalComment on above:Performed By: #### SEDR #### [facility] [address] [address] [address] Zeke GarciaWBCNONKy SEENNormalNONE SEENThe [facility] HospitalComment on above: Performed By: #### SEDR #### [facility] [address] [place] [id number] Dr[address] Zeke GarciaAmbulatory Visit Summaryon [id number] Visit Summary DISHA DE LA GARZA :1950 Visit Date:10/18/2021 Ambulatory Visit Instructions Your Diagnosis Asymptomatic microscopic hematuria Other post-traumatic urethral stricture, female Urge incontinence Tests Performed Urnls Dip Stick Auto w/o Microscopy POC 36958 Your Care Team Attending Physician - Nate Mccoy MD, Ralph Bauer Primary Care Physician - MEETA JORDAN, WILL Leo What to do next Scheduled Follow-Up Appointments Sunday 8:30 AM EDT With: Nate Mccoy MD, Ralph Bauer [facility] Educationon [phone] EducationUrology Urinary Incontinence Urinary incontinence refers to a condition in which a person is unable to control where and when topass urine. A person with this condition will urinate when he or she does not mean to (involuntarily). What are the causes? This condition may be caused by: ? Medicines. ? Infections. ? Constipation. ? Overactive bladder muscles. ? Weak bladder muscles. ? Weak pelvic floor muscles. These muscles provide support for the bladder, intestine, and, in women, the uterus. ? Enlarged prostate in men. The prostate is a gland near the bladder. When it gets too big, it can pinch the urethra. With the urethra blocked, the bladder can weaken and lose the ability to empty properly. ? Surgery. ? Emotional factors, such as anxiety, stress, or post-traumatic stress disorder (PTSD). ? Pelvic organ prolapse. This happens in women when organs shift out of place and into the vagina. This shift can prevent the bladder and urethra from working properly. What increases the risk? The following factors may make you more likely to develop this condition: ? Older age. ? Obesity and physical inactivity. ? and childbirth. ? Menopause. ? Diseases that affect the nerves or spinal cord (neurological diseases). ? Long-term (chronic) coughing. This can increase pressure on the bladder and pelvic floor muscles. What are the signs or symptoms? Symptoms may vary depending on the type of urinary incontinence you have. They include: ? A sudden urge to urinate, but passing urine involuntarily before you can get to a bathroom (urge incontinence). ? Suddenly passing urine with any activity that forces urine to pass, such as coughing, laughing, exercise, or sneezing (stress incontinence). ? Needing to urinate often, but urinating only a small amount, or constantly dribbling urine (overflow incontinence). ? Urinating because you cannot get to the bathroom in time due to a physical disability, such as arthritis or injury, or communication and thinking problems, such as Alzheimer disease (functional incontinence). How is this diagnosed? This condition may be diagnosed based on: ? Your medical history. ? A physical exam. ? Tests, such as: ? Urine tests. ? X-rays of your kidney and bladder. ? Ultrasound. ? CT scan. ? Cystoscopy. In this procedure, a health care provider inserts a tube with a light and camera (cystoscope) through the urethra and into the bladder in order to check for problems. ? Urodynamic testing. These tests assess how well the bladder, urethra, and sphincter can store andrelease urine. There are different types of urodynamic tests, and they vary depending on what the test is measuring. To help diagnose your condition, your health care provider may recommend that you keep a log of when you urinate and how much you urinate. How is this treated? Treatment for this condition depends on the type of incontinence that you have and its cause. Treatment may include: ? Lifestyle changes, such as: ? Quitting smoking. ? Maintaining a healthy weight. ? Staying active. Try to get 150 minutes of moderate-intensity exercise every week. Ask your healthcare provider which activities are safe for you. ? Eating a healthy diet. ? Avoid high-fat foods, like fried foods. ? Avoid refined carbohydrates like white bread and white rice. ? Limit how much alcohol and caffeine you drink. ? Increase your fiber intake. Foods such as fresh fruits, vegetables, beans, and whole grains are healthy sources of fiber. ? Pelvic floor muscle exercises. ? Bladder training, such as lengthening the amount of time between bathroom breaks, or using the bathroom at regular intervals. ? Using techniques to suppress bladder urges. This can include distraction techniques or controlledbreathing exercises. ? Medicines to relax the bladder muscles and prevent bladder spasms. ? Medicines to help slow or prevent the growth of a man's prostate. ? Botox injections. These can help relax the bladder muscles. ? Using pulses of electricity to help change bladder reflexes (electrical nerve stimulation). ? For women, using a product manager medical device to prevent urine leaks. This is a small, tampon-like, disposable device that is inserted into the urethra. ? Injecting collagen or carbon beads (bulking agents) into the urinary sphincter. These can help thicken tissue and close the bladder opening. ? Surgery. Follow these instructions at home: Lifestyle ? Limit alcohol and caffeine. These can fill your bladder quickly and irritate it. ? Keep yourself clean to help prevent odors and skin damage. Ask your doctor about special skin creams and cleansers that can protect the skin from urine. ? Consider wearing pads or adult diapers. Make sure to change them regularly, and always change them right after experiencing incontinence. General instructions ? Take pppt-igp-zceuuml and prescription medicines only as (more content not included)...[facility] HospitalU[facility] Office/Clinic Noteon [phone] Office/Clinic NoteChief Complaint 6-8 week follow up This patient is a 71-year-old female with a history of hematuria. Her work-up included cystoscopy with CT scan, urine cytology and cystoscopy with urethral dilation. Other problems included urinary difficulties which have significantly improved since her dilation. She is here today for her first postop visit. [facility] Staff Pt is here today for 6-8 week follow up w/PVR. Previous DX: asymptomatic microscopic hematuria, enuresis, urge incontinence. S/P Cysto done 08/29/21. PVR 112ml Dysuria: denies Incomplete bladder emptying: most of the time she empties out Hematuria: denies visible blood, UA shows TRACE INTACT Frequency: moderate intermittent 5-6x a day Urgency: denies Nocturia: denies Stream: denies hesitancy, denies weak stream Leaking: denies Post void dripping: denies Wearing pads/ Depends: yes pt wears pull ups just in case Urge incontinence: mild intermittent once in awhile Stress incontinence: denies Incontinence without Sensory Awareness: denies Abdominal pain: denies Flank pain: denies Sexual complaints: denies History of Present Illness I have reviewed and verified the staff HPI to be accurate for this encounter. Review of Systems PHQ Score Initial Depression Screen Score: 0 ROS - Provider Constitutional: denies weight loss, denies hot flashes. Eyes: denies eye problems. Gastrointestinal: denies nausea, denies vomiting. Cardiovascular: denies chest pain or angina. Integumentary: no dryness Musculoskeletal: denies musculoskeletal symptoms. ENMT: denies otolaryngeal symptoms. Respiratory: no shortness of breath. Heme/Lymph: denies easy bleeding tendency, denies easy bruising tendency. Psychiatric: no confusion, no anxiety. Genitourinary: denies vaginal discharge, denies incontinence, denies dysuria, denies hematuria, mild urinary frequency, denies amenorrhea, denies menorrhagia, denies abnormal bleeding, denies pelvic pain, denies genital sores, and denies decreased libido. Physical Exam Vitals & Measurements HR: 83(Peripheral) RR: 16 BP: 156/90 HT: 160.0 cm HT: 160.0 cm WT: 83.1 kg WT: 83.1 kg BMI: 32.46 General Appearance: alert , no acute distress, well nourished, well developed female. Genitourinary: bladder nonpalpable, no flank pain. Assessment/Plan Persistent microscopic hematuria. Her other voiding symptoms have improved significantly. Today herhematuria work-up has been negative. She is scheduled for follow-up visit in 6 months at which timewe will repeat another urinalysis. 1. Asymptomatic microscopic hematuria (R31.21: Asymptomatic microscopic hematuria) UA today showed Trace-Intact. Cysto/UD done 08/29/2021 with negative or abnormal findings Pt will f/u in 6 months w/PVR Ordered: Measure Post Void residual urine and/or bladder capacity by US- non-imaging 44093 Urnls Dip Stick Auto w/o Microscopy POC 07952 2. Other post-traumatic urethral stricture, female (N35.028: Other post- traumatic urethral stricture, female) 3. Urge incontinence (N39.41: Urge incontinence) Pt wears a depends just in case of accidents but pt states her incontinence is intermittent. Ordered: Measure Post Void residual urine and/or bladder capacity by US- non-imaging 64376 Orders: ciprofloxacin, 500 mg = 1 tab(s), Oral, As Directed, Pt. to take 1 tab the day before procedure andthe 2nd tab the day of procedure once completed., # 2 tab(s), Refills(s) 0, Pharmacy: [id number] [facility], 160, cm, 08/02/21 8:30:00 EST, Height/Length Dosing, 78... Follow-up With When Contact Information Nate Mccoy MD, Ralph Bauer, URO Within 6 months [facility] [address], [place] [id number] [phone] Additional Instructions: PVR Patient Education Urinary Incontinence Hematuria, Adult I, Cyndi Gonzalez, personally scribed for Dr. Sullivan on 10/18/2021 09:15:34. . Documentation recorded by the scribe, Cyndi Gonzalez, accurately reflects the services(s) I performed and decisions made by me. Authenticated by Dr. Sullivan on 10/18/2021 13:14:19. Problem List/Past Medical History Ongoing Asymptomatic microscopic hematuria Enuresis Smoker Urge incontinence Historical No qualifying data Procedure/Surgical History Cystourethroscopy (08/29/2021), Appendectomy, Arthroscopic knee procedure, Cholecystectomy, TKA - Through knee amputation, Tonsillectomy. Medications aspirin 81 mg Oral EC Tab, Oral, Daily atorvastatin 10 mg Tab, Oral, Daily folic acid 1 mg Tab, Oral, Daily Latanoprost 0.005% eye solution, 0 metformin 1000 mg oral tablet, Oral, BID methotrexate 2.5 mg Tab, 17.5 mg= 7 tab(s), Oral, Sunday Multivitamins and Minerals omeprazole, Oral, Daily Allergies hydroxychloroquine (Unknown) Social History Tobacco 10 or more cigarettes (1/2 pack or more)/day in last 30 days Tobacco Use:. Cigarettes, Yes, 10/18/2021 Family History Family history is unknown Immunizatio (more content not included)...[facility] Comment on above:Result Comment: Electronically Signed By: Ralph Sullivan Jr., MD\.br\Date and Time Signed: 10/18/2212:14 EST\.br\Electronically Co-Signed By: Cyndi Gonzalez MA\.br\Date and Time Co-Signed: 10/18/21 09:16 ESTConsent for Procedure/Surgeryon [id number] for Procedure/Surgery [id number]:127NoAvita Health System Ontario HospitalAmbulatory Clinical Summaryon [id number] Clinical Summary {[id number]}CD:[id number] [facility] Methodist HospitalPatient Educationon [phone] EducationMental and Behavioral Health Tobacco Use Disorder Tobacco use disorder (TUD) occurs when a person craves, seeks, and uses tobacco, regardless of the consequences. This disorder can cause problems with mental and physical health. It can affect your ability to have healthy relationships, and it can keep you from meeting your responsibilities at work, home, or school. Tobacco may be: ? Smoked as a cigarette or cigar. ? Inhaled using e-cigarettes. ? Smoked in a pipe or hookah. ? Chewed as smokeless tobacco. ? Inhaled into the nostrils as snuff. Tobacco products contain a dangerous chemical called nicotine, which is very addictive. Nicotine triggers hormones that make the body feel stimulated and works on areas of the brain that make you feel good. These effects can make it hard for people to quit nicotine. Tobacco contains many other unsafe chemicals that can damage almost every organ in the body. Smoking tobacco also puts others in danger due to fire risk and possible health problems caused by breathing in secondhand smoke. What are the signs or symptoms? Symptoms of TUD may include: ? Being unable to slow down or stop your tobacco use. ? Spending an abnormal amount of time getting or using tobacco. ? Craving tobacco. Cravings may last for up to 6 months after quitting. ? Tobacco use that: ? Interferes with your work, school, or home life. ? Interferes with your personal and social relationships. ? Makes you give up activities that you once enjoyed or found important. ? Using tobacco even though you know that it is: ? Dangerous or bad for your health or someone else's health. ? Causing problems in your life. ? Needing more and more of the substance to get the same effect (developing tolerance). ? Experiencing unpleasant symptoms if you do not use the substance (withdrawal). Withdrawal symptoms may include: ? Depressed, anxious, or irritable mood. ? Difficulty concentrating. ? Increased appetite. ? Restlessness or trouble sleeping. ? Using the substance to avoid withdrawal. How is this diagnosed? This condition may be diagnosed based on: ? Your current and past tobacco use. Your health care provider may ask questions about how your tobacco use affects your life. ? A physical exam. You may be diagnosed with TUD if you have at least two symptoms within a 12- month period. How is this treated? This condition is treated by stopping tobacco use. Many people are unable to quit on their own and need help. Treatment may include: ? Nicotine replacement therapy (NRT). NRT provides nicotine without the other harmful chemicals in tobacco. NRT gradually lowers the dosage of nicotine in the body and reduces withdrawal symptoms. NRT is available as: ? Qjpv-apt-vqxjqmg gums, lozenges, and skin patches. ? Prescription mouth inhalers and nasal sprays. ? Medicine that acts on the brain to reduce cravings and withdrawal symptoms. ? A type of talk therapy that examines your triggers for tobacco use, how to avoid them, and how tocope with cravings (behavioral therapy). ? Hypnosis. This may help with withdrawal symptoms. ? Joining a support group for others coping with TUD. The best treatment for TUD is usually a combination of medicine, talk therapy, and support groups. Recovery can be a long process. Many people start using tobacco again after stopping (relapse). If you relapse, it does not mean that treatment will not work. Follow these instructions at home: Lifestyle ? Do not use any products that contain nicotine or tobacco, such as cigarettes and e-cigarettes. ? Avoid things that trigger tobacco use as much as you can. Triggers include people and situations that usually cause you to use tobacco. ? Avoid drinks that contain caffeine, including coffee. These may worsen some withdrawal symptoms. ? Find ways to manage stress. Wanting to smoke may cause stress, and stress can make you want to smoke. Relaxation techniques such as deep breathing, meditation, and yoga may help. ? Attend support groups as needed. These groups are an important part of long- term recovery for many people. General instructions ? Take fteg-ywb-cnrcotl and prescription medicines only as told by your health care provider. ? Check with your health care provider before taking any new prescription or soxj-nno-xbkcubg medicines. ? Decide on a friend, family member, or smoking quit-line (such as 7-452-ESEL-NOW in the [place] thatyou can call or text when you feel the urge to smoke or when you need help coping with cravings. ? Keep all follow-up visits as told by your health care provider and therapist. This is important. Contact a health care provider if: ? You are not able to take your medicines as prescribed. ? Your symptoms get worse, even with treatment. Summary ? Tobacco use disorder (TUD) occurs when a person craves, seeks, and uses tobacco regardless of theconsequences. ? This condition may be diagn (more content not included)...[facility] HospitalUrology Office/Clinic Noteon [id number] Office/Clinic Note Chief Complaint Pt is here for a cysto/UD HPI Staff Disha is a 71 y.o. female here for cysto/UD. ABX taken. CT done on 08/16/21 showed no abnormal suspicious findings. History of Present Illness Tests Reviewed: Reviewed UA/CT abd/pel 08/16/2021/BUN CREA 08/16/2021. I have reviewed the previous health record information and history for this patient from Dr. Sullivan I have reviewed and verified the staff HPI to be accurate for this encounter. There have been no associated fever, chills, flank pain, or blood in the urine. Denies any urinary infections since last encounter. Review of Systems PHQ Score Initial Depression Screen Score: 0 ROS - Provider Constitutional: denies weight loss, denies hot flashes. Eyes: denies eye problems. Gastrointestinal: denies nausea, denies vomiting. Cardiovascular: denies chest pain or angina. Integumentary: no dryness Musculoskeletal: denies musculoskeletal symptoms. ENMT: denies otolaryngeal symptoms. Respiratory: no shortness of breath. Heme/Lymph: denies easy bleeding tendency, denies easy bruising tendency. Psychiatric: no confusion, no anxiety. Genitourinary: denies vaginal discharge, denies incontinence, denies dysuria, denies hematuria, denies urinary frequency, denies amenorrhea, denies menorrhagia, denies abnormal bleeding, denies pelvic pain, denies genital sores, and denies decreased libido. Physical Exam Vitals & Measurements HR: 88(Peripheral) BP: 140/89 HT: 160.0 cm HT: 160 cm WT: 78.0 kg WT: 78 kg BMI: 30.47 General Appearance: alert , no acute distress, well nourished, well developed female. Genitourinary: bladder nonpalpable, no flank pain. Procedure Operative Information Anesthesia Type: Local Procedure: Local Cystoscopy with Urethral Dilation Complications: None Surgical risks, benefits, details of the procedure have been explained to the patient. Full informed consent has been obtained. Intraoperative Information Prepped: Patient is brought back to the endoscopy suite. Patient is placed in _ position. Patient prepped in the usual fashion with Betadine solution. 2% Xylocaine Jelly is placed per Urethra. After waiting several minutes, the Cystoscope is introduced. The Urethra is: Tight The Bladder: Abnormal, Trabeculated: None (0) The Ureteral orifices: Show efflux of clear urine The Urethra was dilated to: 30 Grenadian with sounds. Specimens Removed: None Removal: Cystoscope is removed. The patient tolerated it well. Postoperative Information Patient is discharged home with antibiotic coverage. Follow up arranged for 6 weeks with PVR. Assessment/Plan Cystoscopy with urethral dilation was performed. Hematuria work-up included CT scan that showed no abnormal findings. Urethral dilation was completed to 30 Grenadian. Patient tolerated procedure withoutcomplication. Her urinary work-up for hematuria is negative at this point. She did have FISH performed by her primary care physician and that was reportedly negative. We will plan to see her back in the office in 6 weeks with PVR. 1. Asymptomatic microscopic hematuria (R31.21: Asymptomatic microscopic hematuria) Patient is here for cysto w/ UD. Patient tolerated well. 08/16/2021 CT abd/pelv reviewed and negative for abnormal findings. 08/16/2021 BUN/CREA reviewed and WNL. FISH/CYTOL obtained by PCP which was negative. 2. Smoker (F17.210: Nicotine dependence, cigarettes, uncomplicated) We strongly recommend to quit tobacco use. Cigarette smoking harms nearly every organ of the body, causes many diseases, and reduces the health of smokers in general. Quitting smoking lowers your risk for smoking-related diseases and can add years to your life. We encourage you to visit www.smokefree.gov access to helpful resources including free telephone support. If you decide on prescription treatment to help you quit, we would be happy to provide these. 3. Urge incontinence (N39.41: Urge incontinence) Follow-up With When Contact Information Nate Mccoy MD, Ralph Bauer, URO Additional Instructions: Patient Education Tobacco Use Disorder BMI for Adults I, Laura Obrien, personally scribed for Dr. Sullivan on 08/29/2021 11:31:03. . Documentation recorded by the scribe, Laura Obrien, accurately reflects the services(s) I performed and decisions made by me. Authenticated by Dr. Sullivan on 08/29/2021 11:33:43. Problem List/Past Medical History Ongoing Asymptomatic microscopic hematuria Enuresis Smoker Urge incontinence Historical No qualifying data Procedure/Surgical History Cystourethroscopy (08/29/2021), Appendectomy, Arthroscopic knee procedure, Cholecystectomy, TKA - Through knee amputation, Tonsillectomy. Medications aspirin 81 mg Oral EC Tab, Oral, Daily atorvastatin 10 mg Tab, Oral, Daily Cipro 500 mg Tab, 500 mg= 1 tab(s), Oral, As Directed folic acid 1 mg Tab, Oral, Daily Latanoprost 0.005% eye solution, 0 mo (more content not included)...[facility] HospitalComment on above:Result Comment: Electronically Signed By: Ralph Sullivan Jr., MD\.br\Date and Time Signed: 08/29/2111:34 EST\.br\Electronically Co-Signed By: Laura Obrien MA\.br\Date and Time Co-Signed: 08/29/21 11:31 ESTLab Reportson [id number] [id number]:127[facility] HospitalRAD - CT Reporton [id number] - CT Report [id number]:127[facility] HospitalLab Reportson [id number] Reports [id number]:127[facility] HospitalAmbulatory Clinical Summaryon [id number] Clinical Summary {[id number]}CD:[id number] Health System Ontario HospitalPatient Educationon [id number] EducationUrology Hematuria, Adult Hematuria is blood in the urine. Blood may be visible in the urine, or it may be identified with a test. This condition can be caused by infections of the bladder, urethra, kidney, or prostate. Otherpossible causes include: ? Kidney stones. ? Cancer of the urinary tract. ? Too much calcium in the urine. ? Conditions that are passed from parent to child (inherited conditions). ? Exercise that requires a lot of energy. Infections can usually be treated with medicine, and a kidney stone usually will pass through your urine. If neither of these is the cause of your hematuria, more tests may be needed to identify the cause of your symptoms. It is very important to tell your health care provider about any blood in your urine, even if it ispainless or the blood stops without treatment. Blood in the urine, when it happens and then stops and then happens again, can be a symptom of a very serious condition, including cancer. There is no pain in the initial stages of many urinary cancers. Follow these instructions at home: Medicines ? Take tyaa-dty-lipoeyt and prescription medicines only as told by your health care provider. ? If you were prescribed an antibiotic medicine, take it as told by your health care provider. Do not stop taking the antibiotic even if you start to feel better. Eating and drinking ? Drink enough fluid to keep your urine clear or pale yellow. It is recommended that you drink 3?4 quarts (2.8?3.8 L) a day. If you have been diagnosed with an infection, it is recommended that you drink cranberry juice in addition to large amounts of water. ? Avoid caffeine, tea, and carbonated beverages. These tend to irritate the bladder. ? Avoid alcohol because it may irritate the prostate (men). General instructions ? If you have been diagnosed with a kidney stone, follow your health care provider's instructions about straining your urine to catch the stone. ? Empty your bladder often. Avoid holding urine for long periods of time. ? If you are female: ? After a bowel movement, wipe from front to back and use each piece of toilet paper only once. ? Empty your bladder before and after sex. ? Pay attention to any changes in your symptoms. Tell your health care provider about any changes or any new symptoms. ? It is your responsibility to get your test results. Ask your health care provider, or the department performing the test, when your results will be ready. ? Keep all follow-up visits as told by your health care provider. This is important. Contact a health care provider if: ? You develop back pain. ? You have a fever. ? You have nausea or vomiting. ? Your symptoms do not improve after 3 days. ? Your symptoms get worse. Get help right away if: ? You develop severe vomiting and are unable take medicine without vomiting. ? You develop severe pain in your back or abdomen even though you are taking medicine. ? You pass a large amount of blood in your urine. ? You pass blood clots in your urine. ? You feel very weak or like you might faint. ? You faint. Summary ? Hematuria is blood in the urine. It has many possible causes. ? It is very important that you tell your health care provider about any blood in your urine, even if it is painless or the blood stops without treatment. ? Take dkvl-kom-wlmjkcq and prescription medicines only as told by your health care provider. ? Drink enough fluid to keep your urine clear or pale yellow. This information is not intended to replace advice given to you by your health care provider. Make sure you discuss any questions you have with your health care provider. Document Released: 09/03/2006 Document Revised: 01/28/2020 Document Reviewed: 10/06/2017 [email or web address] Patient Education ? 2019 inFreeDA.[facility] [place] [id number] [place] [id number]:127Kunal [facility] Office/Clinic Noteon 09-15-5876Vizrvbv Office/Clinic NoteChief Complaint GROUP MANAGING DIRECTOR hematuria Patient is a 71-year-old with a history of microscopic hematuria physician she had a urine FISH andcytology that did not show evidence of. She is a cigarette smoker. She is here today to establish urologic care. HPI Staff GROUP MANAGING DIRECTOR here as a referral from Dr. Tim for recurrent hematuria. Pt denies ever having a UTI. Pt hashad a hx of kidney stones, and she said this was many years ago. Dr. Hannon did perform a FISH testand was negative 05/25/21. No recent imaging was done. Dysuria: no pain or burning Incomplete bladder emptying: feels like she is emptying Hematuria: _ denies every seeing urine, UA shows TRACE Frequency: voiding every 2-3 hours Urgency: moderate sx Nocturia: none Stream: strong stream, mild intermittent stream, occasionally strain to empty Post void dripping: none Wearing pads/ Depends: depends at night and pad during the day. Urge incontinence: occasionally will have dripping Stress incontinence: none Incontinence without Sensory Awareness: yes, enuresis this has been going on for 3-4 months Abdominal pain: no pain History of Present Illness Reviewed urinalysis, FISH results and referral information. There have been no associated fever, chills, flank pain or blood in the urine. Pt. denies any pain/burning with urination at this time. I have reviewed and verified the staff HPI to be accurate for this encounter. I have reviewed the previous health record information and history for this patient from Dr. Sullivan. Review of Systems PHQ Score Initial Depression Screen Score: 0 ROS - Provider Constitutional: denies weight loss, denies hot flashes. Eyes: denies eye problems. Gastrointestinal: denies nausea, denies vomiting. Cardiovascular: denies chest pain or angina. Integumentary: no dryness Musculoskeletal: denies musculoskeletal symptoms. ENMT: denies otolaryngeal symptoms. Respiratory: no shortness of breath. Heme/Lymph: denies easy bleeding tendency, denies easy bruising tendency. Psychiatric: no confusion, no anxiety. Genitourinary: See HPI Physical Exam Vitals & Measurements HR: 85(Peripheral) RR: 18 BP: 152/92 HT: 160.0 cm HT: 160 cm WT: 78.0 kg WT: 78 kg BMI: 30.47 General Appearance: alert , no acute distress, well nourished, well developed female. Head: normocephalic . Eyes: normal orbit and globe. ENMT: normal examination of external ears. Chest: Lungs CTA, respirations non labored . Cardiovascular: regular rate and rhythm. Abdomen: soft, non distended, no tenderness, no mass or organomegaly, no hernia. Genitourinary: bladder nonpalpable, no flank tenderness. Lymph Nodes: unremarkable palpation of the cervical area. Skin: warm, dry, no bruising. Psychiatric: cooperative, affect appropriate for age, normal judgement, euthymic mood. Assessment/Plan This patient has a history of microscopic hematuria. She is being scheduled for urologic evaluationincluding cystoscopy and a CT scan with contrast. She has had a fish cytology that was negative formalignancy. Preop antibiotics have been ordered. Consents been obtained. During the cystoscopic exam and urethral dilation will also be performed for suspected urethral stenosis. She has some moderate obstruction symptoms that hopefully will respond to dilation. 1. Asymptomatic microscopic hematuria (R31.21: Asymptomatic microscopic hematuria) Urinalysis today shows trace-lysed. PCP ordered FISH 05/25/2021 which was negative for malignancy. Will schedule Cysto/UD. The risks and benefits for cystoscopy have been discussed. The risks include bleeding, infection, and irritation of the bladder and urinary channel, among others. The patient,after being informed of procedural details and after questions have been answered, wishes to proceed. Full informed consent has been obtained. Will order Local anesthesia. ABX sent. Will order CT AP w/ contrast. Ordered: CT Abdomen/Pelvis w/ Contrast Urnls Dip Stick Auto w/o Microscopy POC 57214 Urology Procedure Order Urology Procedure Order 2. Nocturnal enuresis (N39.44: Nocturnal enuresis) Ongoing for the last 3-4 months, wears depends. 3. Urge incontinence (N39.41: Urge incontinence) Dripping, wears pads throughout the day. Will schedule UD. Ordered: Urology Procedure Order Urology Procedure Order 4. Nicotine dependence, cigarettes, uncomplicated (F17.210: Nicotine dependence, cigarettes, uncomplicated) Patient is a long-term cigarette smoker. Orders: ciprofloxacin, 500 mg = 1 tab(s), Oral, As Directed, Pt. to take 1 tab the day before procedure andthe 2nd tab the day of procedure once completed., # 2 tab(s), Refills(s) 0, Pharmacy: [facility] [facility], 160, cm, 08/02/21 8:30:00 EST, Height/Length Dosing, 78... Follow-up With When Contact Information Nate Mccoy MD, Ralph Bauer, [facility] [address], [place] [address]- Additional Instructions: schedule cysto/UD & CT AP w/ con Patient Education Hem (more content not included)...[facility] HospitalComment on above:Result Comment: Electronically Signed By: Ralph Sullivan Jr., MD\.br\Date and Time Signed: 08/02/2108:52 EST\.br\Electronically Co-Signed By: Saba George\.br\Date and Time Co-Signed: 08/02/21 08:47 EST Vital Signs Date TimeVital SignValuePerforming QzbmrrodqGuxugfbs67-24-0536 14:54-0400Body cpjliu199 cmAntsaira Arevalo DPM Work Phone: [facility] HospitalXqasdlmlku67-48-1185 14:54-0400Body mass index (BMI) [Ratio]31.89 kg/c1EyfbsueOsei Arevalo DPM Work Phone: [facility] HospitalNcjenrwfwr25-71-7870 14:54-0400Body ununku67.65 kgOsei Arevalo DPM Work Phone: [facility] HospitalHvpukpgmup46-26-6324 09:18-0400Body kg Will Tim MD Work Phone: [facility]07-24-2025 08:21-0400 Body .02 cmEerlin Tim MD Work Phone: [facility]07-24-2025 08:21-0400 Body mass index (BMI) [Ratio]32.1 kg/a5LwssykWill Tim MD Work Phone: [facility]07-24-2025 08:21-0400 Body .3 kgWill Tim MD Work Phone: [facility]07-02-2025 14:03-0400 Body regump659 cmEdjake Tim MD Work Phone: [phone])[address]07-02-2025 14:03-0400Body mass index (BMI) [Ratio]31.97 kg/i5MoeauwWill Tim MD Work Phone: [phone])[address]07-02-2025 14:03-0400Body laqvdy40.87 kgWill Tim MD Work Phone: [phone])[address] [place], [place] 6157107-02-2025 14:03-0400Heart idbk228 /min Will Tim MD Work Phone: [phone])[address] [place], [place] 6157107-02-2025 14:03-5749LvE7% (BldA) [Mass fraction]96 %Will Tim MD Work Phone: 1(801)525-[address] [place], [place] [address]Lslgztzvbb49-00-3698 14:27-0400Body cm Osei Arevalo DPM Work Phone: [phone])[address]05-28-2025 14:27-0400Body mass index (BMI) [Ratio]31.53 kg/u7QoxvwrmOsei Arevalo DPM Work Phone: [phone])[address]05-28-2025 14:27-0400Body ocizlo79.74 kgOsei Arevalo DPM Work Phone: [phone])[address]05-19-2025 09:17-0400Body tlrauh379 cm Will Tim MD Work Phone: [phone] HospitalPfmtwlldur48-65-8238 09:17-0400Body mass index (BMI) [Ratio]31.53 kg/c5YatrjaWill Tim MD Work Phone: 1(870)[address]05-19-2025 09:17-0400Body grubgw00.74 kgWill Tim MD Work Phone: 1(567)[address] [place], [place] 6157105-19-2025 09:17-0400Diastolic blood qsanctdi29 mm[Hg]Will Tim MD Work Phone: 1(021)[address] [place], [place] 6157105-19-2025 09:17-0400Heart rate92 /min Will Tim MD Work Phone: 1(625)[address] [place], [place] 6157105-19-2025 09:17-1868CgC9% (BldA) [Mass fraction]99 %Will Tim MD Work Phone: 1(871)[address] [place], [place] 6157105-19-2025 09:17-0400Systolic blood qriahlwv876 mm[Hg]Will Tim MD Work Phone: 1(648)[address] [place], [place] 6157102-19-2025 14:18-0500Body izzjxj569 cm Osei Arevalo DPM Work Phone: 1(521)[address] [place], [place] 4945102-19-2025 14:18-0500Body mass index (BMI) [Ratio]30.82 kg/a5Ufyfxgn Rusher DPM Work Phone: [phone])[address]02-19-2025 14:18-0500Body cjveiy93.93 kgAnthony Rusher DPM Work Phone: 1(523)[address]02-10-2025 13:57-0500Body vstoij162 cm Will Tim MD Work Phone: 1(948)[address] [place], [place] 6157102-10-2025 13:57-0500Body mass index (BMI) [Ratio]30.82 kg/t0IlzjxuWill Tim MD Work Phone: 1(512)[address] [place], [place] 6157102-10-2025 13:57-0500Body phmuxe61.93 kgWill Tim MD Work Phone: 1(415)[address]11-19-2024 13:57-0500Body ljrcti966 cm Osei Arevalo DPM Work Phone: [phone] [address]-19-2024 13:57-0500Body mass index (BMI) [Ratio]30.82 kg/j7Rghznac Rusher DPM Work Phone: [phone])307[place] [address]-19-2024 13:57-0500Body rcoofu49.93 kgOsei Arevalo DPM Work Phone: [facility] HospitalIagzlvdkot53-78-5405 08:28-0400Body dxahyj337 cm Will Tim MD Work Phone: [facility] HospitalPpvmocimpe93-70-0196 08:28-0400Body mass index (BMI) [Ratio]30.82 kg/y7NhnazpWill Tim MD Work Phone: [facility] HospitalAqtyokoite13-84-7036 08:28-0400Body .93 kgWill Tim MD Work Phone: [facility] HospitalKfcxzmldbl96-84-0353 08:28-0400Diastolic blood rfuzugwt61 mm[Hg]Will Tim MD Work Phone: [facility] HospitalCygzzkcazn39-39-8015 08:28-0400Heart oonz770 /min Will Tim MD Work Phone: [facility] HospitalOgdsxzpjci06-53-8294 08:28-6869SaT5% (BldA) [Mass fraction]97 %Will Tim MD Work Phone: [facility] HospitalVoqgitbnat53-80-6641 08:28-0400Systolic blood zhitiucv016 mm[Hg]Will Tim MD Work Phone: [facility] HospitalCdxmebkewz54-31-0128 13:45-0400Body cm Will Tim MD Work Phone: [facility] HospitalDleoykxbcc00-52-1285 13:45-0400Body mass index (BMI) [Ratio]31.35 kg/x4KtflxxWill Tim MD Work Phone: [facility] HospitalMmizamjhsv18-05-9524 13:45-0400Body nyoctu25.29 kgWill Tim MD Work Phone: [facility] HospitalUkgomwzxmb00-67-7317 11:07-0400Body cm Alen Rausch MD Work Phone: [facility] HospitalKldduztzmi24-05-8736 11:07-0400Body mass index (BMI) [Ratio]31.35 kg/v4MftstcAlen Rausch MD Work Phone: [facility] HospitalAbhbbhchqs14-88-7043 11:07-0400Body vymadi25.29 kgAlen Rausch MD Work Phone: [facility] HospitalRpwmcvwfmv38-34-9774 11:07-0400Diastolic blood usffprim44 mm[Hg]Alen Rausch MD Work Phone: [facility] HospitalPcybscfvoi51-02-2739 11:07-0400Systolic blood nnzierjj619 mm[Hg]Alen Rausch MD Work Phone: [facility] HospitalNzwyxjxhdz50-15-8456 14:00-0500Body otasbt757.02 cmDajason Garcia Other [employer] Other 11-22-2022 14:00-0500Body mass index (BMI) [Ratio] 31.88 kg/m2Dajason Garcia Other [employer] Other 11-22-2022 14:00-0500Body .65 kgDale Radha Other [employer] Other 11-09-2022 08:25-0500Diastolic blood fjijeqvh67 mm[Hg] MD Will Tim Work Phone: [facility]11-09-2022 08:25-0500 Heart rate75 /minMD Will Tim Work Phone: [facility]11-09-2022 08:25-0500 Respiratory rate16 /minMD Will Tim Work Phone: [facility]11-09-2022 08:25-0500 SaO2% (BldA) [Mass fraction]97 %MD Will Tim Work Phone: [facility]11-09-2022 08:25-0500 Systolic blood mm[Hg]MD Will Tim Work Phone: [facility]11-09-2022 07:55-0500 Inhaled oxygen flow rate6 L/minMD Rauljake Babaragustina Work Phone: [facility]11-09-2022 07:14-0500 Body hvacqk528.02 cmMD Will Tim Work Phone: [facility]11-09-2022 07:14-0500 Body mass index (BMI) [Ratio]33.5 kg/m2MD Will Tim Work Phone: 1([phone] [place], [place] 2971211-09-2022 07:14-0500 Body jiywwh35.8 kgMD Will Tim Work Phone: [phone])096-[address] [place], [place] 2971211-09-2022 06:14-0500 Body yifndeamjhy82.7 [degF]MD Will Tim Work Phone: [facility]10-06-2022 15:20-0400 Body hlikqf303.02 cmDajason Garcia Other [employer] Other 10-06-2022 15:20-0400Body mass index (BMI) [Ratio] 31.88 kg/m2Dajason Garcia Other [employer] Other 10-06-2022 15:20-0400Body bekman22.65 kgDale Radha Other [employer] Other Encounters Encounter DateEncounter TypeCare ProviderFacilityStart: 05-26-2025 End: 38-27-8522Agdqtuqa Result EncounterJodi Obermeyer POWER PROJECT MANAGER Work Phone: [facility] External Department UnsolicitedStart: 05-26-2025 End: 88-19-2188Ryaxtwro Result EncounterJodi Obermeyer POWER PROJECT MANAGER Work Phone: [facility] External Department UnsolicitedStart: 05-19-2025 End: 80-62-6458Crhwxto encounter procedureAnthsuly Arevalo DPM Work Phone: [facility] PodiatryComment on above:Onychomycosis (Primary Dx); Onychodystrophy; Diabetic polyneuropathy associated with type 2 diabetes mellitus (HCC)Start: 05-19-2025 End: 49-67-8494wsgvlvqkqmOVKGYGM S RUSHERNot AvailableStart: 05-19-2025 End: 28-78-8608Wnldrc flowsheetAnthony Romina Arevalo DPM Work Phone: [facility] PodiatryStart: 05-19-2025 End: 46-64-6660Dupdzy flowsheetAnthsuly Arevalo DPM Work Phone: [facility] PodiatryStart: 05-12-2025 End: 03-84-2237zndwuionrfJvsyat J Hemeyer MD Work Phone: [facility] Work Phone: Start: 05-12-2025 End: 42-16-0798Iagbmbk encounter procedureWillie Garcia MD-[facility] Neurosurgery Work Phone: start: 04-09-2025 End: 89-58-5835bbwysccfsrDjuevo J Hemeyer MD Work Phone: [facility] Work Phone: Start: 04-09-2025 End: 63-68-0293Qwtnwku encounter procedureWillie Garcia MD-[facility] Neurosurgery Work Phone: start: 03-30-2025 End: 25-77-0994mqcwihapjkVshbbpsAshli Issa MDFacility:[facility] Start: 03-18-2025 End: 12-31-5157Mpoebc Alberto Tim MD Work Phone: [facility] 100Start: 03-18-2025 End: 29-11-2610Hfhoujjose Tim MD Work Phone: [facility] 100Start: 03-18-2025 End: 52-62-5221Obchzw outpatient visit 15 minutesWill Tim MD Work Phone: [facility] 100Comment on above:Recurrent major depressive disorder, in partial remission (Primary Dx); Osteopenia, unspecified location; Impaired glucose tolerance testStart: 03-18-2025 End: 52-91-8917fmoxeifvjlDCFDRS J HEMEYERNot AvailableStart: 02-27-2025 End: 87-03-3552Cnqabchfl Result Dakota Tim MD Work Phone: [facility] External Department UnsolicitedStart: 02-27-2025 End: 54-31-6101Zrtvwpzfs Result EncounterEdjake Tim MD Work Phone: [facility] External Department UnsolicitedStart: 02-15-2025 End: 35-76-6441Jsnoxx OnlyEdjake Tim MD Work Phone: [facility] 100Start: 02-11-2025 End: 74-16-0887Yfpfaen encounter procedureAnthony S Mickey DPM Work Phone: [facility] PODIATRYComment on above:Onychomycosis (Primary Dx); Onychodystrophy; Diabetic polyneuropathy associated with type 2 diabetes mellitus ([facility])Start: 02-11-2025 End: 12-43-4819cmjsoenoujFNQRSKH S RUSHERNot AvailableStart: 02-11-2025 End: 55-00-9345Epiztz flowsheetAnthony S Rusher DPM Work Phone: [facility] PODIATRYStart: 02-11-2025 End: 68-55-5050Mftiio flowsheetAnthony S Rusher DPM Work Phone: [facility] PODIATRYStart: 02-02-2025 End: 88-86-8638Lhkean flowsGeorgiana Tim MD Work Phone: [facility] FM 100Start: 02-02-2025 End: 17-76-7806Xfztsh flowsGeorgiana Tim MD Work Phone: [facility] 100Start: 02-02-2025 End: 61-47-9393Wpsaqbv encounter procedureWill Tim MD Work Phone: [facility] 100Comment on above:Encounter for Medicare annual wellness exam (Primary Dx); Advance directive in chart; Encounter for screening for other disorder; Screening for alcohol problem; Obesity (BMI 30.0-34.9); Screening mammogram, encounter for; Screening for osteoporosis; Dermatomyositis (CMS/HCC); Rheumatoid arthritis involving multiple sites with positive rheumatoid factor (CMS/HCC); Recurrent major depressive disorder, in partial remission (HCC) (CMS/HCC); Mixed hyperlipidemia (CMS/HCC); Essential hypertension (CMS/HCC); Hypertensive nephropathy (CMS/HCC); Menopause; Insulin resistance; Impaired glucose tolerance test; Cigarette smoker; Cardiovascular event riskStart: 02-02-2025 End: 61-40-0399glmsmcdixlGFBSMF J HEMEYERNot AvailableStart: 01-05-2025 End: 15-52-7666Liinaf flowsheetSammantha Campos PTNOMS CI PTStart: 01-05-2025 End: 26-69-8284Tijkor flowsheetSammantha Campos PTNOMS CI PTStart: 01-05-2025 End: 33-32-9698tmkrhfmmfsUsseqneev Campos PTNOMS CI PTComment on above: Chronic pain syndrome (Primary Dx); Right leg weakness; Neuropathy; Right foot painStart: 01-01-2025 End: 86-85-3527Mnkvge flowsheetMelissa Kelbley PTANOMS CI PTStart: 01-01-2025 End: 17-26-1781Vjnyny flowsheetMelissa Kelbley PTANOMS CI PTStart: 01-01-2025 End: 63-81-6794rrfppvyyuvGwwdils Kelbley PTANOMS CI PTComment on above:Chronic pain syndrome (Primary Dx); Right leg weaknessStart: 12-30-2024 End: 68-72-1736Zrbbbh flowsheetMelissa Kelbley PTANOMS CI PTStart: 12-30-2024 End: 63-28-2123Qwlbny flowsheetMelissa Kelbley PTANOMS CI PTStart: 12-30-2024 End: 38-88-6428wcieffwlvlQglrzeo Kelbley PTANOMS CI PTComment on above:Chronic pain syndrome (Primary Dx); Right leg weaknessStart: 12-25-2024 End: 32-47-1226xngsiiprroNoezkms Kelbley PTANOMS CI PTComment on above:Chronic pain syndrome (Primary Dx); Right leg weaknessStart: 12-25-2024 End: 29-60-2565Jegsnv flowsheetMelissa Kelbley PTANOMS CI PTStart: 12-25-2024 End: 77-63-7422Tdbpcn flowsheetMelissa Kelbley PTANOMS CI PTStart: 12-22-2024 End: 52-98-4074Bdtmnr flowsheetMelissa Kelbley PTANOMS CI PTStart: 12-22-2024 End: 99-10-8674Djhebr flowsheetMelissa Kelbley PTANOMS CI PTStart: 12-22-2024 End: 56-33-0098lvsglpscfjOpanwpv Kelbley PTANOMS CI PTComment on above:Chronic pain syndrome (Primary Dx); Right leg weaknessStart: 12-19-2024 End: 59-51-9962Myyygo flowsheetMelissa Kelbley PTANOMS CI PTStart: 12-19-2024 End: 34-30-0974Wjphjt flowsheetMelissa Kelbley PTANOMS CI PTStart: 12-19-2024 End: 45-70-6007tonruoohpfXelgmfa Kelbley PTANOMS CI PTComment on above:Chronic pain syndrome (Primary Dx); Right leg weaknessStart: 12-16-2024 End: 40-41-9396Iuuprw flowsheetMelissa Kelbley PTANOMS CI PTStart: 12-16-2024 End: 26-51-1859Innapt flowsheetMelissa Kelbley PTANOMS CI PTStart: 12-16-2024 End: 90-20-1168uhnsrvcyjeStetrmv Kelbley PTANOMS CI PTComment on above:Chronic pain syndrome (Primary Dx); Right leg weakness; NeuropathyStart: 12-10-2024 End: 60-17-8694Dyrhxu flowsheetMelissa Kelbley PTANOMS CI PTStart: 12-10-2024 End: 41-69-6645Ycemeb flowsheetMelissa Kelbley PTANOMS CI PTStart: 12-10-2024 End: 63-56-7155qestaohmnzDwkaxxm Kelbley PTANOMS CI PTComment on above:Chronic pain syndrome (Primary Dx); Right leg weaknessStart: 12-08-2024 End: 11-72-0902otlqdztpovEGAICRG KELBLEYNot AvailableStart: 12-05-2024 End: 61-97-9159mzrbxolxvzUUVKCOGR BRINKNot AvailableStart: 12-03-2024 End: 68-15-4390ldylsepzdaWBGDMLLWK SCHNEIDERNot AvailableStart: 11-24-2024 End: 23-71-9519dcqmcsuxhjKQUTSK DANNERNot AvailableStart: 11-24-2024 End: 52-13-0106rqerpdrxcyDWTDEK J HEMEYERNot AvailableStart: 11-05-2024 End: 62-12-7392Mkwzcr outpatient visit 15 minutesAnthsuly Arevalo DPM Work Phone: [facility] PODIATRYComment on above:Onychomycosis (Primary Dx); Onychodystrophy; Diabetic polyneuropathy associated with type 2 diabetes mellitus ([facility])Start: 11-05-2024 End: 00-31-9704jnohfjsinwGXTSAFI Romina PALACIOHERNot AvailableStart: 11-05-2024 End: 69-45-7067Nbfyux flowsheetAnthony Romina Arevalo DPM Work Phone: [facility] FH PODIATRYStart: 11-05-2024 End: 93-30-0115Qtzaub flowsheetAnthony S Mickey DPM Work Phone: noMS PODIATRYStart: 10-27-2024 End: 29-18-8930Cnrqae Alberto Tim MD Work Phone: [facility] FM 100Start: 10-27-2024 End: 43-03-2010Pasyrj Alberto Tim MD Work Phone: [facility] FM 100Start: 10-27-2024 End: 88-76-0526Vdfonc outpatient visit 25 minutesWill Tim MD Work Phone: noms CI FM 100Comment on above:Right foot pain (Primary Dx); Right leg weakness; Limping; Artificial knee joint present, right; Right leg swelling; Rheumatoid arthritis involving multiple sites with positive rheumatoid factor ([facility])Start: 10-27-2024 End: 23-32-8192rfcobhotcxGFXSZB J HEMEYERNot AvailableStart: 10-20-2024 End: 32-12-6833Uxvbahgzq encounterEdjake Tim MD Work Phone: [facility] CI FM 100Start: 08-12-2024 End: 24-21-4897Ezvulg flowsheetJames A Izzy DO Work Phone: [facility] ORTHOPAEDICSStart: 08-12-2024 End: 33-53-9322Eodfec flowsheetJames A Izzy DO Work Phone: [facility] ORTHOPAEDICSStart: 08-12-2024 End: 35-60-4474ltymxnznvaRCGTQ A HUDDLESTONNot AvailableStart: 08-12-2024 End: 11-73-6639Zhymdf outpatient visit 10 minutesJames A Izzy DO Work Phone: noms ORTHOPAEDICSComment on above:Arthritis of right knee; Arthritis of left knee; S/P total knee arthroplasty, left; S/P total knee arthroplasty, rightStart: 08-05-2024 End: 93-73-9353Kiympf flowsheetAnthony S Rusher DPM Work Phone: n[facility] PODIATRYStart: 08-05-2024 End: 19-40-2577Xxjttk flowsheetAnthony S Rusher DPM Work Phone: [facility] PODIATRYStart: 08-05-2024 End: 92-23-2077Azjdvz outpatient visit 15 minutesAnthsuly S Ebenher DPM Work Phone: noms PODIATRYComment on above:Onychomycosis (Primary Dx); Onychodystrophy; Diabetic polyneuropathy associated with type 2 diabetes mellitus (CMS/HCC); Primary osteoarthritis of left ankle; Primary osteoarthritis of right ankleStart: 08-05-2024 End: 76-51-6552qdmpxkukpdSNSUKFN Romina AREVALOLakshmi AvailableStart: 07-15-2024 End: 61-21-7575Oyqhqp follow up visit related to original Jacqueline Arshad MD Work Phone: noms ST GENSComment on above:Positive colorectal cancer screening using Cologuard test (Primary Dx); Diverticulosis large intestine w/o perforation or abscess w/o bleedingStart: 07-15-2024 End: 14-25-0883kzllegjyafYYNRPF VARGAS VNot AvailableStart: 07-03-2024 End: 26-89-6459Tjwwcp Alberto Tim MD Work Phone: [facility] FM 100Start: 07-03-2024 End: 28-35-2529Wedjzf Alberto Tim MD Work Phone: [facility] FM 100Start: 07-03-2024 End: 13-07-9470Hzndww outpatient visit 25 minutesWill Tim MD Work Phone: noms CI FM 100Comment on above:Essential hypertension (CMS/HCC) (Primary Dx); Hypertensive nephropathy (CMS/HCC); Insulin resistance; Impaired glucose tolerance test; Mixed hyperlipidemia (CMS/HCC); Left foot pain; TMJ syndrome; Encounter for examination following treatment at hospital; Polypharmacy; Obesity (BMI 30.0-34.9)Start: 07-03-2024 End: 77-88-4749ycrjwmppvqQJFBPJ J HEMEYERNot AvailableStart: 06-10-2024 End: 58-74-9533Ccfykh outpatient visit 25 minutesWill Tim MD Work Phone: [facility] CI FM 100Comment on above:Yeast dermatitis; Polypharmacy; Obesity (BMI 30.0-34.9)Start: 06-10-2024 End: 74-84-4998tpcrxigazjBPGXHT J HEMEYERNot AvailableStart: 06-02-2024 End: 84-86-2827Skogvq OnlyOsei Arevalo DPM Work Phone: noms FH PODIATRYComment on above:Primary osteoarthritis of left ankle (Primary Dx)Advice OnlyStart: 05-23-2024 End: 13-71-6234Hjdxnr outpatient new 45 minutesAlen Arshad MD Work Phone: noms ST GENSComment on above:Positive colorectal cancer screening using Cologuard test (Primary Dx); Encounter for screening for malignant neoplasm of colonStart: 05-23-2024 End: 45-23-4514jejesbkfnmUXZTMM VARGAS VNot AvailableStart: 05-13-2024 End: 35-39-5734Lznrgr Virgie Engle NP Work Phone: [facility] ORTHOPAEDICSStart: 05-13-2024 End: 93-42-5639Spkhls Virgie Engle GROUP MANAGING DIRECTOR Work Phone: [facility] CI ORTHOPAEDICSStart: 05-13-2024 End: 16-04-6906Bjmkbn outpatient visit 10 minutesVivek Engle NP Work Phone: noms CI ORTHOPAEDICSComment on above:S/P reverse total shoulder arthroplasty, right; Osteoarthritis of right glenohumeral jointStart: 01-24-2024 End: 69-90-6547whxvsyuqvoXRLRWI J. HEMEYERFacility:[facility] HospitalStart: 01-17-2024 End: 71-42-3724fvijyaimvsHOSYQL J. HEMEYERFacility:[facility] HospitalStart: 01-10-2024 End: 42-72-0451moezlpqqubUEJDVY J. HEMEYERFacility:[facility] HospitalStart: 01-03-2024 End: 56-73-3373itzfcrfpxrJQLUYJ J. HEMEYERFacility:[facility] HospitalStart: 12-27-2023 End: 99-73-9136rbjqhdwlhkIE Katherine TurnerFacility:[facility] HospitalStart: 12-20-2023 End: 79-09-4255bojppsafrwIO Katherine TurnerFacility:[facility] HospitalStart: 12-13-2023 End: 83-06-2457kzxnaqvgqyOD Dominique ColemanFacility:[facility] HospitalStart: 12-06-2023 End: 63-82-4298nnhatthcjmCG Dominique ColemanFacility:[facility] HospitalStart: 11-27-2023 End: 40-53-0231bvbtpwkbnmXV Katherine TurnerFacility:[facility] HospitalStart: 10-29-2023 End: 88-42-6462ryprlcumstDzyim Mainor IzzyFacility:[facility] HospitalStart: 82-74-2225Ttelc Sushila Magana DO Work Phone: [facility] ORTHOPAEDICSStart: 65-76-5420VihiigRkqpm T Olsen GROUP MANAGING DIRECTOR Work Phone: NOAJ FB ORTHOPAEDICSComment on above:Post-operative pain (Primary Dx)Start: 10-04-2023 End: 87-93-8647jimkpxwbnxHqqjn Mainorrivas MaganaFacility:[facility] HospitalStart: 08-15-2022 End: 65-13-5283xtzehvjewtZT EDWARD HEMEYERFacility:E3Byeje: 08-11-2022 End: 71-98-3325sowsnvpexcVA WILL TIMFacility:Z7Bxmay: 08-08-2022 End: 66-83-4872tnlndejfrxZint Braun Other [facility] [employer] Other start: 18-01-5579Iihzzo follow up visit related to original pxDale BraunFPG [facility] NeurosurgeryStart: 07-26-2022 End: 76-30-0653Obkaiqzwf to same day surgery centerMD Will Tim Work Phone: [facility] OhioStart: 07-26-2022 End: 55-43-4727cypdejohkeBC Edward J Hemeyer Work Phone: [facility] Work Phone: Start: 07-24-2022 End: 01-04-0559rsztsnbuvaSG Edjake J Hemeyer Work Phone: [facility] Work Phone: Start: 07-24-2022 End: 56-88-6621Egbfyfc encounter procedureMD Edward Hemeyer Work Phone: [facility] Zvz-Qqe-Ifffpwdq Testing Start: 07-12-2022 End: 68-73-4972vpduancecjSI Edjake J Hemeyer Work Phone: [facility] Work Phone: Start: 07-12-2022 End: 01-54-3604Ulyucre encounter procedureMD Edjake Hemeyer Work Phone: [facility] Dtv-Iir-Rhzxqrkt Testing Start: 06-22-2022 End: 84-69-6171garfxwpyseZlos Garcia Other [facility] [employer] Other start: 07-62-3970Vafknr outpatient new 30 minutesDale BraunMethodist [facility] NeurosurgeryStart: 06-21-2022 End: 34-00-8257wbffbhxmwjZW Will Leo Hemeyer Work Phone: [facility] Work Phone: Start: 06-21-2022 End: 92-56-6065Mlikhup encounter procedureMD Edjake Hemeyer Work Phone: [facility] CampusStart: 04-30-2022 End: 49-64-4459qeltihjmawLSCMIC RODRIGUEZFacility:I3Sjbfa: 02-11-2022 End: 82-84-6213hecdtjvekvPF EDWARD HEMEYERFacility:K7Ctiug: 11-19-2021 End: 77-14-6594nfgqepjbbiON EDWARD HEMEYERFacility:R9Fhngi: 11-05-2021 End: 16-48-2721maivjthollYT EDWARD HEMEYERFacility:H1 Procedures DateProcedureProcedure DetailPerforming ClinicianStart: 39-15-2382Nfwgygek blood count with white cell differential, automatedJodi Obermeyer POWER PROJECT MANAGER Work Phone: Start: 38-59-2426Wkpbygxxveogq metabolic panelJodi Obermeyer POWER PROJECT MANAGER Work Phone: Start: 94-89-8891Mnqnc radiography of pelvisWill Tim MD Work Phone: Start: 34-96-0119G-ray of lumbar spine, six views including bending viewsWill Tim MD Work Phone: Start: 67-36-6352LS LUMBAR SPINE WO CONGeneric External Data ProviderStart: 70-66-5370RB TOMOSYNTHESIS SCREENING Richard Tim MD Work Phone: Start: 53-68-0538FowhmtvesglEixpnb Hemeyer MD Work Phone: Start: 92-04-7942Dzaltvvedj glycosylated n2nXwcfooWill Tim MD Work Phone: Start: 76-91-8937Fvdev albumin quantitativeEdjake Tim MD Work Phone: Start: 24-95-3256IwtcqtgdvdqBcukxf Jeancarlos Rausch MD Work Phone: Start: 80-03-8528Psreh shoulder complete minimum 2 viewsGrant T Oniel GROUP MANAGING DIRECTOR Work Phone: Start: 02-07-2024H/O: artificial jointPresence of artificial shoulder joint, rightGrant Oniel GROUP MANAGING DIRECTOR Work Phone: Start: 07-04-2023H/O: artificial jointPresence of artificial shoulder joint, leftGrant Oniel GROUP MANAGING DIRECTOR Work Phone: Start: 72-59-8694Rqxmwqhzljuss of median nerveMD Will Tim Work Phone: Start: 67-22-3410U-ray of cervical spineMD Will Tim Work Phone: Start: 06-44-0112YsjqwkodofsOgzoj Engle OENL Work Phone: Plan of Treatment DateCare ActivityDetailAuthorStart: 73-12-9804Zthxbhmka for malignant neoplasm of colonNOMS HealthcareStart: 05-92-9229Aeklufcjh for malignant neoplasm of colonNOMS HealthcareStart: 35-70-5037Didcainn screeningDiabetes: Retinopathy ScreeningNOMS HealthcareStart: 62-78-0900Dyknllmin for malignant neoplasm of breastMammogramNOMS HealthcareStart: 09-38-7431Pzlgs screening for protein Diabetes: Urine Protein ScreeningNOKS HealthcareStart: 05-19-2026Medicare Annual Wellness (AWV)Medicare Annual Wellness (AWV)NOM HealthcareStart: 08-18-2025 End: 31-77-0412Ddowsym encounter vswzumval73/02/2025 3:00 PM EST Procedure Visit [facility] [address] [facility] [place] [address] Osei Arevalo DPM [address] [place] [address] [facility] Vicente PodiatryStart: 41-34-4195Xrlrx screening for proteinDiabetes: Urine Protein ScreeningNOKS HealthcareStart: 05-19-2025 End: 98-57-3432Woygwfj encounter procedureNOMS PODIATRYComment on above: ArrivedStart: 39-09-0554Fxytcldgh vaccinationInfluenza Vaccine (#1)NOM HealthcareStart: 03-35-2313Zpmjeamoxd A1c measurementDiabetes: Hemoglobin A1C NOM HealthcareStart: 03-18-2025 End: 62-27-9652Zdbloql encounter ldpycbsss78/02/2025 2:00 PM EDT Office Visit [facility] [address] [place] [address] Will Tim MD [address] [place] [address] (Fax) Recurrent major depressive disorder, in partial remission ; Impaired glucose tolerance testNOMS CI FM 100Comment on above:Recurrent major depressive disorder, in partial remission ; Impaired glucose tolerance testStart: 02-12-2025 End: 98-07-6437Aajrvlz encounter wybvvsnzj79/29/2025 11:00 AM EDT [facility] [address] [place] [address] Will Tim MD [address] [place] [address] [facility] 100Start: 02-11-2025 End: 61-03-6367Udxqlhq encounter procedureNOST. LUKE'S HOSPITAL PODIATRYComment on above: ArrivedStart: 02-10-2025 End: 34-83-6696Kmxqypd encounter msqfqfakv24/27/2025 2:30 PM EDT Procedure Visit [facility] [address] [place] [address] Osei Arevalo DPM [address] [place] [address] [facility] PODIATRYStart: 05-21-2025Medicare Annual Wellness (AWV)Medicare Annual Wellness (AWV)[facility]OM[facility] HealthcareStart: 03-90-3332Nrbdrqgkehux Vaccine: 65+ Years (3 of 3 - PPSV23 or PCV20)Pneumococcal Vaccine: 65+ Years (3 of 3 - PPSV23 or PCV20)NOM HealthcareComment on above:Postponed from 01/14/2022 (Patient Refused)Start: 02-02-2025 End: 28-68-1891ARK Skeletal system Views for bone densityDEXA bone density Imaging Routine Screening for osteoporosis Menopause Expected: 02/02/2025, Expires: 02/02/2026NOKS HealthcareComment on above:Expected: 02/02/2025, Expires: 02/02/2026Start: 02-02-2025 End: 74-36-5546AL Breast - bilateral ScreeningBilateral screening mammogram Imaging Routine Screening mammogram, encounter for Expected: 02/02/2025, Expires: 04/04/2026[facility] Work Phone: Comment on above:Expected: 02/02/2025, Expires: 04/04/2026Start: 02-02-2025 End: 08-61-3546Mefadmp encounter procedureNOMS CI FM 100Comment on above: Encounter for Medicare annual wellness exam; Advance directive in chart; Encounter for screening for other disorder; Screening for alcohol problem; Polypharmacy; Obesity (BMI 30.0-34.9); Screening mammogram, encounter for; Screening for osteoporosisStart: 01-09-2025 End: 60-08-3845csrkmpyfdh82/25/2025 2:00 PM EDT Treatment [facility] [address] [facility] [address] [place] [address] Jaimee Velazquez, NEWS AGENT [facility]OM[facility] CI PTStart: 01-05-2025 End: 87-61-4775hpaptsxftlGIUW CI PTComment on above:Chronic pain syndrome (Primary Dx); Right leg weakness; Neuropathy; Right foot painStart: 01-01-2025 End: 34-08-1999olqilomiluKKVF CI PTComment on above:ArrivedStart: 12-30-2024 End: 71-59-5054cqxqxdahpv16/15/2025 2:00 PM EDT Treatment [facility] [address] [facility] [address] [place] [address] Jaimee Velazquez, NEWS AGENT ArrivedNOMS CI PTComment on above:ArrivedStart: 12-25-2024 End: 32-40-5043zbvsbsevoe88/10/2025 2:00 PM EDT Treatment [facility] [address] [place] [address] Audrey Velazquezissa, NEWS AGENT [facility] CI PTStart: 12-22-2024 End: 65-37-4282pyynfebwqu98/07/2025 7:00 AM EDT Treatment [facility] [address] [place] [address] Jaimee Velazquez, NEWS AGENT [facility] CI PTStart: 12-19-2024 End: 77-10-4323jumstfpwqhGAFE CI PTComment on above:ArrivedStart: 12-16-2024 End: 91-46-6489rfbunsqtidOBHL CI PTComment on above:ArrivedStart: 12-10-2024 End: 89-04-5242asfoyjknzo72/26/2025 2:00 PM EDT Treatment [facility] [address] [place] [address] Jaimee Velazquez, IDALIA ArrivedNOMS CI PTComment on above:ArrivedStart: 11-27-2024 End: 22-47-8715Zmiatqb encounter procedureNOMS CI FM 100Start: 11-24-2024 End: 63-88-8383Msrvpyd encounter snzzztyqt51/10/2025 9:00 AM EDT Office Visit [facility] [address] [place] [address] Will Tim MD [address] [place] [address] [facility] CI FM 100Start: 11-18-2024 End: 39-68-0931Jbktwni encounter nivsnzkdh21/04/2025 9:00 AM EST Office Visit [facility] [address] [place] [address] Vivek Engle, GROUP MANAGING DIRECTOR [address] [facility] [place] [address] [facility] CI ORTHOPAEDICSStart: 11-05-2024 End: 68-86-8699Hnqvcwq encounter procedureNOMS FH PODIATRYComment on above: ArrivedStart: 10-27-2024 End: 78-19-0812KWO 1 ExtremeityEMG 1 [facility] Routine Right foot pain Right leg weakness Limping Artificial knee jointpresent, right Right leg swelling Expected: 10/27/2024 (Approximate), Expires: 10/27/2025[facility] Work Phone: Comment on above:Expected: 10/27/2024 (Approximate), Expires: 10/27/2025Start: 10-27-2024 End: 48-69-3017Cvlyxfq encounter /10/2025 2:00 PM EST Office Visit [facility] [address] [place] [address] Will Tim MD [address] [place] [address] (Fax) ArrivedNOMS CI FM 100Comment on above: ArrivedStart: 47-17-0127Yvjubwgy screeningDiabetes: Retinopathy ScreeningNOMS HealthcareStart: 28-61-4893Vzgwpoeiho A1c measurementDiabetes: Hemoglobin A1C NOMS HealthcareStart: 08-12-2024 End: 01-89-8611Nrrlcmx encounter uitszlbfn53/26/2024 9:00 AM EST Office Visit [facility] [address] [place] [address] Alexis Magana DO [address] [place] [address] [facility] CI ORTHOPAEDICSStart: 08-05-2024 End: 79-71-0821Fbqtoot encounter procedureNOMS FH PODIATRYComment on above: ArrivedStart: 07-15-2024 End: 43-93-2955Qbdbfbn encounter xerxhcwho29/29/2024 2:30 PM EDT Office Visit [facility] [address] [address] Alen Arshad MD 703 [facility] 150 [place] [address] GENSStart: 07-03-2024 End: 50-88-7701Optybks encounter procedureNOMS CI FM 100Comment on above: Essential hypertension (CMS/HCC); Hypertensive nephropathy (CMS/HCC); Insulin resistance; Mixed hyperlipidemia (CMS/HCC); Encounter for examination following treatment at hospital; Polypharmacy; Obesity (BMI 30.0-34.9)Start: 07-02-2024 End: 51-89-1191Lkvwbpj encounter quegasqua20/16/2024 12:30 PM EDT Procedure Visit [facility] EX[facility]P Alen Arshad MD 703 [facility] 150 [place] [address] NOMS EXT DEPStart: 06-19-2024 End: 19-77-6967Jhymjin encounter yadgarhqe95/03/2024 8:00 AM EDT Office Visit [facility] 100 [address] [facility] 100 [place] [address] Will Tim MD [address] [facility] [place] [address] [facility] CI FM 100Start: 05-23-2024 End: 79-57-9920Kxzfsys encounter hfptujzye34/06/2024 11:15 AM EDT Consult [facility] [address] [address] Alen Arshad MD [address] GENSStart: 69-16-8920Uynlpiqit vaccinationInfluenza Vaccine (#1) NOMS HealthcareStart: 05-13-2024 End: 89-50-9800Ybdyuzn encounter jrofwnqhs09/27/2024 9:00 AM EDT Office Visit [facility] [address] [facility] 150 [place] [address] Vivek Engle, GROUP MANAGING DIRECTOR [address] [place], [place] [address] S/P reverse total shoulder arthroplasty, right; Osteoarthritis of right glenohumeral jointNOMS CI ORTHOPAEDICSComment on above: S/P reverse total shoulder arthroplasty, right; Osteoarthritis of right glenohumeral jointStart: 01-21-2024 End: 99-88-2109Oxisjcb encounter swiqlplrx13/06/2024 3:00 PM EDT Procedure Visit [facility] [address] [place] [address] Osei Arevalo, DPM [address] [place] [address] NOMS PODIATRYStart: 12-20-2023 End: 31-88-0645Qheccob encounter javxbremq58/04/2024 2:00 PM EDT Office Visit [facility] [address] [place] [address] Will Tim MD [address] [place] [address] [facility] PAUL FMStart: 11-06-2023 End: 63-14-8998Jmhbfbf encounter wdnlpufdl89/20/2024 10:00 AM EST Office Visit [facility] [address] [place] [address] Alexis Magana, DO [address] [place] [address] NOMS ORTHOPAEDICSStart: 10-29-2023 End: 50-26-0795Ghjpviu encounter /12/2024 10:00 AM EST Procedure Visit [facility] EXT DEP Alexis Magana, DO [address] [place] [address] NOMS EXT DEPStart: 08-21-2023 Medicare Annual Wellness (AWV)Medicare Annual Wellness (AWV)[facility] Start: 66-13-2030Bpxgk screening for proteinDiabetes: Urine Protein Screening NOM HealthcareStart: 84-35-5344Znjaoscuhd A1c measurementDiabetes: Hemoglobin E1NKCQF HealthcareStart: 73-84-0920Rmcnl screening for proteinDiabetes: Urine Protein ScreeningNOKS HealthcareStart: 07-26-2022 End: 31-31-3683LijzldyzmWilson Memorial Hospitaltart: 27-74-5175Wlhvboxan for malignant neoplasm of breastMammogramNOMS HealthcareStart: 01-14-2022 Pneumococcal Vaccine: 65+ Years (3 - PPSV23 or PCV20)Pneumococcal Vaccine: 65+ Years (3 - PPSV23 or PCV20)NOMS HealthcareStart: 03-42-4944Tlcsmddoy for malignant neoplasm of colonNOMS HealthcarePatient referralGlenbeigh Hospital Work Phone: XR Lumbar spine ViewsProtestant Hospital XR Pelvis 1 or [address] [facility] Immunizations Immunization DateImmunizationNotesCare UdtxwdpyYglwbydf42-93-7700NALBLYL - Respiratory syncytial virus (RSV), vaccine, bivalent, protein subunit RSV prefusion F, diluent reconstituted, 0.5 mL, PFWill Tim MD Work Phone: [facility] HospitalDxhfrctfna21-11-8233iflibytwu, high dose seasonal, preservative-freeWill Tim MD Work Phone: [phone] [place], [place] [address]Qeabhnwsgc66-60-0153Xmetytimteif Conjugate PCV 20 Will Tim MD Work Phone: [facility] HospitalLofawbxpyo96-80-0866pirgoxynv virus vaccine, unspecified formulationWill Tim MD Work Phone: [phone] [place], [place] [address]Khqfidralk34-45-9948spkwdepfc virus vaccine, unspecified formulationAlext Oniel GROUP MANAGING DIRECTOR Work Phone: [facility] HospitalPwczdbxglo23-04-0847Zyfeeqkll, Seasonal, Quadrivalent, AdjuvantedGrant Oniel GROUP MANAGING DIRECTOR Work Phone: [facility] HospitalAmtypeviqu87-92-9467GWNQD-87 mRNA Bivalent Booster (Pfizer)MD Will Tim Work Phone: [phone] [place], [place] [address]10-12-2022Influenza, High-dose Seasonal, Quadrivalent, Preservative FreeGrant Oniel GROUP MANAGING DIRECTOR Work Phone: [facility] HospitalUovhiurgwq96-49-2718jowaekjim virus vaccine, unspecified formulationGrant Oniel GROUP MANAGING DIRECTOR Work Phone: [facility] HospitalBgznybqipx86-50-9838ininbeovu, injectable, quadrivalent, preservative freeGrant Oniel GROUP MANAGING DIRECTOR Work Phone: [phone] [place], [place] [address]Lmcjnptcxb49-38-9400irclxbutc virus vaccine, unspecified formulationGrant Engle GROUP MANAGING DIRECTOR Work Phone: [phone] [place], [place] [address]Xmohynuucp10-15-8027jyzpsafmg, injectable, quadrivalent, preservative freeGrant Engle GROUP MANAGING DIRECTOR Work Phone: [phone] [place], [place] [address]Mtyvcteqmy29-34-6092UZZQK-22 mRNADax (Pfizer)MD Will Tim Work Phone: [facility]01-19-2021COVID-19 mRNADax (Pfizer)MD Will Tim Work Phone: [facility]10-01-2020influenza virus vaccine, unspecified formulationGrant Engle GROUP MANAGING DIRECTOR Work Phone: [phone] [place], [place] [address]Lzzmiedqje01-58-9589vpzkqslxt, high dose seasonal, preservative-freeGrant Engle GROUP MANAGING DIRECTOR Work Phone: [phone] [place], [place] [address]Oqimzuqrhe12-83-8270pwxlqfjkr virus vaccine, unspecified formulationGrant Engle GROUP MANAGING DIRECTOR Work Phone: [phone] [place], [place] [address]Eiviicrxij58-75-3395mortczxls, injectable,quadrivalent, preservative free, pediatricGrant Engle GROUP MANAGING DIRECTOR Work Phone: [phone] [place], [place] [address]Wafhvszsay48-93-8828dtsvtrpxc virus vaccine, unspecified formulationGrant Engle GROUP MANAGING DIRECTOR Work Phone: [phone] [place], [place] [address]Fsjgdbqwis21-47-3026Oddwxyoh trivalent influenza vaccine, adjuvanted, preservative freeGrant Engle GROUP MANAGING DIRECTOR Work Phone: [phone] [place], [place] [address]Clbxohefva79-69-2992jdldmkxgf, injectable, quadrivalent, preservative freeGrant Engle GROUP MANAGING DIRECTOR Work Phone: [phone] [place], [place] [address]Cukppbhpnk83-79-4746orbxckffldpi conjugate vaccine, 13 valentGrant Engle GROUP MANAGING DIRECTOR Work Phone: [phone] [place], [place] [address]Jwghapygnz82-78-9379mjsqkliqp virus vaccine, unspecified formulationGrant Engle GROUP MANAGING DIRECTOR Work Phone: [phone] [place], [place] [address]Byngiaaafo51-73-0168twiccvzlw, high dose seasonal, preservative-freeGrant Engle GROUP MANAGING DIRECTOR Work Phone: [phone] [address] StreetDmduonopeo26-01-4932rstpboeglvja polysaccharide vaccine, 23 valentGrant Engle GROUP MANAGING DIRECTOR Work Phone: [phone] [place], [place] [address]Ehebmklaib16-49-2816wtlhpthpo virus vaccine, unspecified formulationGrant Engle GROUP MANAGING DIRECTOR Work Phone: [phone] [place], [place] [address]Oicoizvpzu49-84-5541ubnwjlaqu, injectable, quadrivalent, preservative freeGrant Engle GROUP MANAGING DIRECTOR Work Phone: [phone] [place], [place] [address]Glzalrqull88-26-6507ojmvwa vaccine, liveGrant Engle GROUP MANAGING DIRECTOR Work Phone: [phone] [place], [place] [address]Bhdeyxjzvp08-64-9532owgmujvtsfcd polysaccharide vaccine, 23 valentGrant Engle GROUP MANAGING DIRECTOR Work Phone: [phone] [place] [address] Payers DatePayer CategoryPayerPolicy [id number]-bzr [id number] [id number] Health Insurance [id number] [id number] 2.16.840.1.798322.3.579.2.81267-87-9063Ebqilmf6976790 2.16.840.1.932360.3.579.2.49010-81-3219Xfriihg4528205 2.16.840.1.229824.3.579.2.48942-60-2551Jyynthr7468758 2.16.840.1.312216.3.579.2.58646-56-9866Dmscdxn5202710 2.16.840.1.595308.3.579.2.70696-87-6416Ccyznzj3618745 2.16.840.1.314017.3.579.2.80964-81-8201Wrxoxnc57030707 2.16.840.1.974120.3.579.2.77906-63-3881Tvbfcqi63347627 2.16840.1.049172.3.579.2.85364-04-0799Dxyjtaj04118047 2.16840.1.082540.3.579.2.06912-54-2933Ijjzjww99938481 2.16.840.1.269562.3.579.2.07827-10-7822Hpknbbq12072943 2.16840.1.220616.3.579.2.32147-41-1036Aekzuav06192816 2.16840.1.854228.3.579.2.04114-61-9253Eopxxcr60225123 2.16.840.1.791008.3.579.2.25197-69-3322Pdjxggr44263926 2.16.840.1.392204.3.579.2.27628-56-8532Qatedgr38609468 2.16.840.1.453211.3.579.2.23350-52-0866Poiumvd25392706 2.16.840.1.798025.3.579.2.59641-46-7310Tzshlya54597120 2.16.840.1.597753.3.579.2.80607-69-1012Lebrbdp818325045 2.16.840.1.415614.3.579.2.71188-55-3041Pgwyqdx03133747 2.16.840.1.663310.3.579.2.199068-32-0389Wwjnprd34277373 2.16.840.1.863547.3.579.2.750593-70-4741Dptpmwy9484101 2.16.840.1.451037.3.579.2.589982-32-1488Zkjtzgr3380849 2.16840.1.844597.3.579.2.683406-68-1128Dwmbnvv8591455 2.16.840.1.299816.3.579.2.401494-50-7105Quwcjma8803546 2.16.840.1.368685.3.579.2.674040-30-0520Jmecbuf8668046 2.16.840.1.086484.3.579.2.301801-57-8030Zsogpkv2880664 2.16840.1.713396.3.579.2.159425-99-3826Tmzssnp4945616 2.16.840.1.009841.3.579.2.969784-40-0256Thrdacl8492861 2.16.840.1.951463.3.579.2.384300-35-4619Lxyxidi1851286 2.16.840.1.160505.3.579.2.131638-23-8962Dykzasv6026196 2.16840.1.283773.3.579.2.863909-86-3528Sjixwch6895161 2.0.1.112652.3.579.2.258876-73-1478Qztfgio6533842 2.0.1.828918.3.579.2.548809-81-3432Nwkhlzv9465545 2.0.1.954750.3.579.2.899648-85-5044Hqekyhb6206759 2..1.402216.3.579.2.696211-63-2605Brjnjzq6902444 2..1.565023.3.579.2.680375-54-5015Lpcydxa8909734 2..1.721159.3.579.2.028767-38-8984Txdojbj3601216 2..1.819243.3.579.2.743586-18-1382Lgoyznw1671757 2..1.454918.3.579.2.178006-99-4817Bmendun0119341 2..1.167004.3.579.2.584604-19-4064Xhnhsff0139007 2..1.359188.3.579.2.884576-87-6820Turbbsy8491215 2..1.446877.3.579.2.250057-71-6871Twxailc7327533 2.0.1.923475.3.579.2.986151-88-6020Sdsgjjy8033587 2.840.1.570003.3.579.2.6952Tefwiru00904375 2.0.1.411224.3.579.2.531 Social History DateTypeDetailFacilityTobacco smoking status NHISUnknown if ever smokedG[facility] Work Phone: Start: [id number]23 End: 58-33-2609Nau Assigned At [facility] [employer] Other start: 07-12-2022 End: 09-65-0036Evohwfw smoking status NHISSmoker (finding)[facility] End: 28-64-7590Obhegry smoking status NHISSmokes tobacco dailyL[facility]eland [facility] History of tobacco useCigarette SmokerHE[facility] HealthcareStart: 08-23-2023 End: 83-53-6113Inckvavkqw smoked current (pack per day) - Reported0.5[facility] HealthcareStart: 10-22-2023 End: 28-85-7783Ajlffdl intakeEx-drinker (finding)[facility] HealthcareStart: 97-67-9826Djyrgxcwu00LVBY HealthcareStart: 12-12-1336Lonogeg Comment6-10 cigs/dayNOKS HealthcareStart: 65-79-2220Tgdvpwb Commentcaffeine: 2-3 cups per dayHEBER VALLEY [facility] HealthcareStart: 36-21-1354Biw Assigned At BirthNot on fileHE[facility]LEY [facility] HealthcareSexFemale (finding)[facility] Goals DatePatient GoalDesired Activity/State Functional Status HfozQoexkrvrpfSjxpdhLrnuzxzn66-73-4432Vhfsblm Health Questionnaire 2 item (PHQ- 2) [Reported][facility] Clinical Notes 05-30-2022 to 05-19-2025 Note Date & HurrPlwwSdqxamku52-17-0710 History of Present illness Narrative* Osei Arevalo DPM - 05/19/2025 3:00 PM EDT Images from the original note were not included. Subjective Patient ID: Sonia De La Garza is a 75 y.o. female who presents for Diabetic foot check (Sonia De La Garza is a 75 y.o. female. Established patient presents today for diabetic nail care. PCP: Dr. Meeta RENAE 03/18/2025, A1C: 5.7 BS: doesn't check). HPI Established patient returns [...] at bedtime, Disp: 90 tablet, Rfl: 3 calcium citrate 250 MG tablet, 1 tablet 2-3 times daily as directed., Disp: , Rfl: cholecalciferol (Vitamin D-3) 125 MCG (5000 UT) tablet, OTC vitamin D3 5000 units, Winter dose, take 1 capsule daily., Disp: , Rfl: DULoxetine (Cymbalta) [address] capsule, Take 1 capsule (60 mg) by mouth Daily, Disp: 90 capsule, Rfl: 1 folic acid (Folvite) 1 MG tablet, 1 mg, Disp: , Rfl: gabapentin (Neurontin) 100 MG capsule, Take 100 mg by mouth 3 (three) times a day, Disp: , Rfl: Menaquinone-7 (Vitamin K2) 100 MCG capsule, Take 1 capsule by mouth Daily, Disp: , Rfl: metFORMIN (Glucophage) 1000 MG tablet, Take 1 tablet (1,000 mg) by mouth in the morning and 1 tablet (1,000 mg) in the evening. Take with meals., Disp: 180 tablet, Rfl: 1 methotrexate 2.5 MG tablet, , Disp: , Rfl: nabumetone (Relafen) 750 MG tablet, Take 750 mg by mouth in the morning and 750 mg before bedtime.,Disp: , Rfl: omeprazole (PriLOSEC) [address] capsule, Take 20 mg by mouth in the morning. Take before meals., Disp: , Rfl: Allergies Hydroxychloroquine, Clindamycin, and Levofloxacin Past Surgical History Past Surgical History: Procedure Laterality Date APPENDECTOMY CARPAL TUNNEL RELEASE Right 07/26/2022 Dr Garcia, [facility] CHOLECYSTECTOMY HYSTERECTOMY IR JOINT ASPIRATION Right Arthrocentesis of the right knee joint [place] KNEE SCOPE,DIAGNOSTIC Right Dr. Cardona [place] MANIPULATION KNEE JOINT UNDER GENERAL ANESTHESIA Right [...] associated with type 2 diabetes mellitus (HCC) E11.42 Patient was examined and evaluated. 9 toenails were debrided in length and thickness today utilizing a nail nipper and electric bur crystal flat grinder without incident. I have discussed the [...] understanding. Osei Arevalo DPM documented in this encounterLakeland Regional [id number] Evaluation note* Diagnosis Onset Date Resolution Status Admit Date Lumbar stenosis acuteJuly 2024 8:18amSpondylolisthesis, lumbosacral regionacuteJuly 2024 8:18am [facility] Work Phone: 1(809) 253-691807-24-2025 Evaluation note* Diagnosis Onset Date Resolution Status Admit Date Lumbar stenosis acuteJuly 2024 8:18amSpondylolisthesis, lumbosacral regionacuteJuly 2024 8:18amLumbar stenosisacuteAugust 2024 9:14amSpondylolisthesis, lumbosacral regionacuteAugust 2024 9:14am [facility] Work Phone: 1(774) 191-844007-02-2025 History of Present illness Narrative* Will Tim MD - 03/18/2025 2:00 PM EDT Images from the original note were not included. Patient ID: Sonia De La Garza is a 74 y.o. female who presents [...] labs or diagnostic imaging with Dr Raul Tim per his request. Based on the results [...] establish both winter and summer levels in [place]. We have discussed the proper type of [...] along with her duloxetine. documented in this encounterLakeland Regional [id number] History of Present illness Narrative* Will Tim MD - 02/15/2025 9:05 AM EDT Notify [...] stratification for cardiovascular disease. documented in this [facility]05-28-2025 History of Present illness Narrative* Osei Arevalo DPM - 02/11/2025 2:30 PM EDT Images from the original note were not included. Subjective Patient ID: Sonia De La Garza is a 74 y.o. female who presents for DM Foot Care (Established patient presents today for diabetic nail care. PCP: Dr. Meeta RENAE 02/02/25, A1C: 5.7 (05/2024), BS: doesn't [...] CARPAL TUNNEL RELEASE Right 07/26/2022 Dr Garcia, [facility] CHOLECYSTECTOMY HYSTERECTOMY IR JOINT ASPIRATION Right Arthrocentesis of the right knee joint IA KNEE SCOPE,DIAGNOSTIC Right Dr. Cardona [place] MANIPULATION KNEE JOINT UNDER GENERAL ANESTHESIA Right 02/09/2021 Dr Magana REVERSE TOTAL SHOULDER ARTHROPLASTY Right 10/29/2023 Dr Magana ROTATOR CUFF REPAIR Left TONSILLECTOMY TOTAL KNEE ARTHROPLASTY 07/21/19 Left, 11/10/20 Right - Dr Magana TOTAL SHOULDER ARTHROPLASTY Left 04/19/2023 elodia, Dr Rincon Family History Family History Problem Relation Name [...] utilizing a nail nipper and electric bur crystal flat grinder without incident. I have discussed the [...] understanding. Osei Arevalo DPM documented in this encounterLakeland Regional [id number] History of Present illness Narrative* Will Tim MD - 02/02/2025 9:00 AM EDT Images from the original note were not included. Disha De La Garza is a 74 y.o. female presents with chief complaint of Annual Exam HPI: History of Present Illness I have reviewed and reconciled the history and medication list with the patient today. CURRENT PCP/CARE TEAM: Patient Care Team: Will Tim MD as PCP - ACO Reach Alexis Magana DO as Referring Physician (Orthopaedic Surgery) Jeet Uriarte MD as Referring Physician (Rheumatology) Osei Arevalo DPM as Referring Physician (Podiatry) Health Risk Assessment Form Do you need help eating, bathing, using the toilet, dressing, or getting around your home?: No Can you prepare your own meals?: Yes Can you do your own housework without help?: Yes Can you shop for groceries or clothes without help?: Yes Do you exercise for about 20 minutes 3 or more days a week?: Yes How confident are you that you can control and manage most of your health problems?: Very confident Can you mange your money, credit cards and accounts, pay bills and taxes?: Yes Vision Screening: Yes, 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 sees 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/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 Hearing Screening: Not done Cognitive Screening Self Assessment: No concerns rasied by family members, friends, or caretakers Three Word Registration: Village, Kitchen, Baby HISTORIES: PAST MEDICAL HISTORY: Past Medical History: Diagnosis Date Arthritis Body mass index (BMI) of 40.0-44.9 in adult (CMS/HCC) Carpal tunnel syndrome Dermatomyositis (CMS/HCC) Diabetes mellitus (CMS/HCC) Fibrosis of right knee joint GERD (gastroesophageal reflux disease) Glucose intolerance (impaired glucose tolerance) History of being hospitalized 08/2017 cellulitis, left arm Hyperlipidemia (CMS/HCC) Insulin resistance Postherpetic neuralgia ([facility]/HCC) Primary osteoarthritis of left knee Primary osteoarthritis of right knee Psoriasis (a type of skin inflammation) ([facility]) RA (rheumatoid arthritis) ([facility]) Reactive hypoglycemia Unspecified rotator cuff tear or rupture of left shoulder, not specified as traumatic Unspecified rotator cuff tear or rupture of right shoulder, not specified as traumatic SURGICAL HISTORY: Past Surgical History: Procedure Laterality Date APPENDECTOMY CARPAL TUNNEL RELEASE Right 07/26/2022 Dr Garcia, [facility] CHOLECYSTECTOMY HYSTERECTOMY IR JOINT ASPIRATION Right Arthrocentesis of the right knee joint IA KNEE SCOPE,DIAGNOSTIC Right Dr. Cardona [place] MANIPULATION KNEE JOINT UNDER GENERAL ANESTHESIA Right 02/09/2021 Dr Magana REVERSE TOTAL SHOULDER ARTHROPLASTY Right 10/29/2023 Dr Magana ROTATOR CUFF REPAIR Left TONSILLECTOMY TOTAL KNEE ARTHROPLASTY 07/21/19 Left, 11/10/20 Right - Dr Magana TOTAL SHOULDER ARTHROPLASTY Left 04/19/2023 Dr Sergey clifton SOCIAL HISTORY: Social History Tobacco Use Smoking status: Every Day Current packs/day: 0.50 Types: Cigarettes Tobacco comments: 6-10 cigs/day Substance Use Topics Alcohol use: Not Currently Comment: caffeine: 2-3 cups per day Drug use: Not Currently Depression: Not at risk (02/05/2024) PHQ-2 PHQ-2 Score: 2 FAMILY HISTORY: Family History Problem Relation Name Age of Onset No Known Problems Sister MEDICATIONS: Current Outpatient Medications Medication Instructions acetaminophen (TYLENOL 8 HOUR) 650 mg, Every 8 hours PRN aspirin 81 mg, Daily atorvastatin (LIPITOR) 10 mg, Oral, Nightly DULoxetine (CYMBALTA) 60 mg, Oral, Daily folic acid (FOLVITE) 1 mg metFORMIN (GLUCOPHAGE) 1,000 mg, Oral, 2 times daily with meals methotrexate 2.5 MG tablet 8 tablets Orally once a week for 90 days nabumetone (RELAFEN) 750 mg, 2 times daily omeprazole (PRILOSEC) 20 mg, Daily before breakfast ALLERGIES: Allergies Allergen Reactions Hydroxychloroquine Hives and Unknown Clindamycin Rash Swelling/rash Levofloxacin Rash PHYSICAL EXAM: Visit Vitals BP 126/72 Pulse 92 Ht 5' 3 Wt 178 lb SpO2 99% BMI 31.53 kg/m OB Status Hysterectomy Smoking Status Every Day BSA 1.89 m BP Readings from Last 3 Encounters: 02/02/25 126/72 11/24/24 126/78 07/03/24 126/72 Wt Readings from Last 3 Encounters: 02/02/25 178 lb 11/24/24 174 lb 11/05/24 174 lb ASCVD 10-Year Risk Score Current as of today 29% 0 to < 5%: Low Risk 5 to < 7.5%: Borderline Risk 7.5 to < 20%: Intermediate Risk 20 to 100%: High Risk Last Change: An Atherosclerotic Cardiovascular Disease (ASCVD) event is defined as myocardial infarction, CHD , or stroke. The ASCVD risk score (Roge POPE, et al., 2019, 2020 [employer]) returns the percentage likelihood of a first time ASCVD event. Age: 74 Legal Sex: Female Non- : No Smokes Tobacco: Yes Has Diabetes Excluding Gestational Diabetes: Yes Systolic BP: 126 HDL: 50 mg/dL Total cholesterol: 136 mg/dL Is BP Treated: No Physical Exam The patient is pleasant and in no acute distress The patient has good eye contact and clear speech Results ASSESSMENT AND PLAN: Assessment/Plan 1. Encounter for Medicare annual wellness exam (Primary) The patient is here for their Annual Medicare Wellness visit. Demographics were updated. Self-assessment was completed and reviewed. Past medical, family, and social history were updated. The medication list updated and reviewed by the doctor. A list of other current medical providers is established and updated. Time was spent discussing health maintenance issues, ordering testing as appropriate,and a schedule was reviewed regarding recommended screening. We discussed safety issues and fall risk. Depression screening was completed and addressed as appropriate. Fall screening was completed and addressed. Cognitive function was assessed by direct observation, cognitive screening as indicated, and assessment of ability to perform ADL's. The BMI and discussed. Major risk factors for chronic disease including family history were discussed. An after visit summary is made available to the patient 2. Advance directive in chart No changes to advanced directives 3. Encounter for screening for other disorder Mildly positive depression screening, however the patient is already treated for pain and depression and does not need any further evaluation or treatment. 4. Screening for alcohol problem Negative alcohol 5. Obesity (BMI 30.0-34.9) Discussed the importance of watching sugars and simple starches. She is not really able to exercisea whole lot except we did again discuss chair exercises which she is not doing 6. Screening mammogram, encounter for - Bilateral screening mammogram; Future - Bilateral screening mammogram 7. Screening for osteoporosis - DEXA bone density; Future - DEXA bone density 8. Dermatomyositis (CMS/HCC) Chronic problem, stable, primarily managed by Rheumatology. 9. Rheumatoid arthritis involving multiple sites with positive rheumatoid factor (CMS/HCC) Chronic problem, stable, primarily managed by Rheumatology. 10. Recurrent major depressive disorder, in partial remission (HCC) (CMS/HCC) Chronic problem, stable, monitor longitudinally. 11. Mixed hyperlipidemia (CMS/HCC) Chronic problem, stable, monitor longitudinally. 12. Essential hypertension (CMS/HCC) Chronic problem, stable, monitor longitudinally. - Microalbumin / creatinine urine ratio; Future - Microalbumin / creatinine urine ratio 13. Hypertensive nephropathy (CMS/HCC) Chronic problem, stable, monitor longitudinally. - Microalbumin / creatinine urine ratio; Future - Microalbumin / creatinine urine ratio 14. Menopause - DEXA bone density; Future - DEXA bone density 15. Insulin resistance - Hemoglobin A1c; Future - Microalbumin / creatinine urine ratio; Future - Hemoglobin A1c - Microalbumin / creatinine urine ratio 16. Impaired glucose tolerance test - Hemoglobin A1c; Future - Microalbumin / creatinine urine ratio; Future - Hemoglobin A1c - Microalbumin / creatinine urine ratio 17. Cigarette smoker Chronic problem that is unstable. The patient continues to use tobacco products or nicotine. Your goal is to quit using tobacco or vapor, as it significantly worsens health risks and complicates treatments. The patient was given a chance to ask questions and they declined medical intervention. Approximatley 5 minutes was spent on counseling 18. Cardiovascular event risk The patient has ASCVD risk factors, but does not currently have a cardiovascular disease diagnosis. A standardized, evidence-based ASCVD risk assessment, is generated during the office visit. Each section is reviewed individually with the patient and a discussion concerning any modifiable risk factors. This discussion lasted approximately 5-10 minutes documented in this encounterLakeland Regional [id number] History of Present illness Narrative* Michela Campos, PT - 01/05/2025 10:30 AM EDT Physical Therapy Treatment Visit / Progress Note / Discharge Patient Name: Sonia De La Garza Today's Date: 01/05/2025 Encounter Diagnoses Name Primary? Chronic pain syndrome Yes Right leg weakness Neuropathy Right foot pain Visit number: 11 Timed Code Treatment: 26 minutes Total Treatment Time: 26 minutes Time In: 10:30 AM Time Out: 11:00 PM History: Pt states she has been having issues with right LE for quite some time. Had right TKA about 2 years ago. States leg feels heavy at times. Also having pain in right foot and ankle due to OA. Pt states she recently had an EMG and sx's are thought to be from her low back. Pt states she still works and is on her feet quite a bit throughout the day. Precautions: [place], bilateral TKA, fall risk Subjective: Pt states pain in bilateral LE's is not improving, especially once she gets home from work. Pt states she does not feel like significant progress has been make and would like to hold PT at this point. Pt states she continues to do her sitting and supine exercises at home. Pain: 12/25 Objective: PT Evaluation (12/03/2024) LUMBAR SPINE AROM: full flexion with decrease right LE sx's, extension limited 50% without change in sx's, bilateral SB is WFL with increase right LE sx's at end range right SB Strength: right hip 3-/5, quad 3+/5, ankle DF 3+ to 4-/4; left hip 4/5, quad and ankle 4 to 4+/5 Palpation: moderate tenderness right posterior knee Special Test: SLR right 25 degrees, left 75 degrees Neurological: Reflexes: 2 bilateral patellar Dermatomes: decrease right L5 Special Test: negative clonus Treatment: Manual Therapy: Passive ROM, Joint mobilization, Soft Tissue Mobilization, Myofascial Release, Muscle Energy Technique, Neural Mobilization, Myofascial Cupping, Dry Needling, IASTM, and Scar mobilization as needed. Therapeutic Exercise: (26 minutes) Review home program this date and discussed importance of compliance with good pt understanding; goals addressed for discharge. Therapeutic Activity: Exercises to improve dynamic activities, functional tasks, functional mobility to return to prior activity level as needed. Neuromuscular re-education: () Dynamic, core, lumbar, trunk activity focusing on core strength and stability , transverse abdominal strength Modalities: Heat, Ice, Electrical Stimulation, Ultrasound, Cervical Mechanical Traction, Lumbar Mechanical Traction, Iontophoresis, and Fluidotherapy as needed. Assessment: Visit #10 pt with complaints of right LE weakness and pain. Pt continues with neuro tension present right LE. Right SLR currently 45 degrees, left 80 degrees. Strength right hip 4-/5, quad 4/5, ankle DF 4-/5. LEFS score: 22/80. Despite pt improvement with muscle testing, she continues to report worsening of pain in bilateral LE's. Pt is compliant with home program and would recommend further intervention at this time. Will discharge PT. Outcome Measure: Lower Extremity Functional Scale (LEFS): 17/80 Rehab Diagnosis: right LE weakness; difficulty walking, decrease ROM and mobility Short Term Goal: To be met in 2 weeks Goal 1: Pt to be instructed in home exercise program. - met Shelter Goals: To be met in 10 weeks Goal 1: Pt to report independence and compliance with home program. - met Goal 2: Pt to report pain no greater than 2/10 with function tasks, ADL's, and work related activities. - not met Goal 3: Pt to achieve 60 degrees of right SLR indicating improved tissue quality. - not met Goal 4: Pt to achieve 4/5 strength right hip and quad to assist with work related tasks and ascending stairs at home. - not met Goal 5: Pt to score no less than 30/80 on LEFS indicating improved QOL. - not met Discharge PT. documented in this encounterLakeland Regional [id number] History of Present illness Narrative* Osei Arevalo, AUDRA - 11/05/2024 2:30 PM EST Images from the original note were not included. Subjective Patient ID: Sonia De La Garza is a 74 y.o. female who presents for DM Foot Care (PCP: Dr. Davidson 10/27/24, A1C: 5.7, BS: doesn't check, SS: 9-9.5). HPI Established patient returns to clinic for diabetic foot check. Review of Systems Constitutional: Negative for activity change and appetite change. Respiratory: Negative for chest tightness and shortness of breath. Cardiovascular: Positive for leg swelling. Negative for chest pain. Endocrine: Negative for cold intolerance and heat intolerance. Musculoskeletal: Positive for arthralgias, gait problem and joint swelling. Skin: Negative for color change and wound. Allergic/Immunologic: Negative for immunocompromised state. Neurological: Negative for weakness and numbness. Hematological: Does not bruise/bleed easily. Psychiatric/Behavioral: Negative for agitation and behavioral problems. Medications Current Outpatient Medications: acetaminophen (Tylenol 8 [...] at bedtime, Disp: 90 tablet, Rfl: 3 DULoxetine (Cymbalta) [address] capsule, Take 1 capsule (60 mg) by mouth Daily, Disp: 90 capsule, Rfl: 1 folic acid (Folvite) 1 MG tablet, 1 mg, Disp: , Rfl: metFORMIN (Glucophage) 1000 MG tablet, Take 1 tablet (1,000 mg) by mouth in the morning and 1 tablet (1,000 mg) in the evening. Take with meals., Disp: 180 tablet, Rfl: 1 methotrexate 2.5 MG tablet, 8 tablets Orally once a week for 90 days, Disp: , Rfl: omeprazole (PriLOSEC) [address] capsule, Take 20 mg by mouth in the morning. Take before meals., Disp: , Rfl: Allergies Hydroxychloroquine, Clindamycin, and Levofloxacin Past Surgical History Past Surgical History: Procedure Laterality Date APPENDECTOMY CARPAL TUNNEL RELEASE Right 07/26/2022 Dr Garcia, [facility] CHOLECYSTECTOMY HYSTERECTOMY IR JOINT ASPIRATION Right Arthrocentesis of the right knee joint [place] KNEE SCOPE,DIAGNOSTIC Right Dr. Cardona [place] MANIPULATION KNEE JOINT UNDER GENERAL ANESTHESIA Right [...] polyneuropathy associated with type 2 diabetes mellitus (CMS/[facility]) E11.42 Patient was examined and evaluated. Diabetic foot evaluation performed. Patient remains low risk for pedal complications. She does have some neuropathy and mild deformity but no preulcerative lesions. 9 toenails were debrided in length and thickness today utilizing a nail nipper and electric bur crystal flat grinder without incident. I have discussed the [...] understanding. Osei Arevalo DPM documented in this encounterLakeland Regional [id number] History of Present illness Narrative* Will Tim MD - 10/27/2024 2:00 PM EST Images from the original note were not included. Patient ID: Sonia De La Garza is a 74 y.o. female who presents for: Subjective Sonia De La Garza is a 74 y.o. female who presents with right lower leg pain. Onset of the symptoms was sudden, starting about 1 month ago. Pain is currently located knee and lower leg including the heelsand toes. Pain is described as aching, heaviness, and uncomfortable, with intensity at worst 9 on a0-10 pain scale. The pain is constant and occurs daily, lasting 30 minutes. Associated symptoms include: arthritis , decreased range of motion, stiffness, and swelling. She describes pain starting around the distal 1/3 of the thigh anteriorly down the anterior leg to about the ankle Level. She also describes what she thinks is a separate pain along the right lateralfoot. This pain can extend into the right toe was. She also notes that her right leg is significantly more swollen than the left. He thinks the right leg is a bit weaker also. Review of Systems Constitutional: Negative for chills and fever. Respiratory: Negative for cough, shortness of breath and wheezing. Cardiovascular: Negative for chest pain and palpitations. Gastrointestinal: Negative for abdominal pain. Genitourinary: Negative for frequency and urgency. Objective The patient is pleasant and in no acute distress The patient has good eye contact and clear speech The right knee is slightly more edematous than the left knee. Previous surgical incisions are normal. She has adequate flexion to 90 degrees plus on the right leg, but comes in just shy of full extension that she believes is in her hamstring region. On palpation of the hamstrings they are nontender in the popliteal space is nontender in all though obesity and edema limit the exam no masses are noted. Straight leg raising is negative. She has rather high arched feet in a tight Achilles tendon. When asked to dorsiflex the foot she can not even get the ankle to 90 degrees. There is no palpable tenderness along the head of the 5th metatarsal. There is only mild diffuse tenderness in the forefoot compression. Sensation is grossly intact. While she has a few mild varicosities no cords were palpated in the calf in the posterior calf muscle is nontender to palpation. Limited ability to truly test Homans but it was negative. There is no erythema to the leg. Visit Vitals Ht 5' 3 Wt 174 lb BMI 30.82 kg/m OB Status Hysterectomy Smoking Status Every Day BSA 1.87 m Allergies Allergen Reactions Hydroxychloroquine Hives and Unknown [...] mg) by mouth Daily 90 capsule 1 folic acid (Folvite) 1 MG tablet 1 mg metFORMIN (Glucophage) 1000 MG tablet Take 1 tablet (1,000 mg) by mouth in the morning and 1 tablet(1,000 mg) in the evening. Take with meals. 180 tablet 1 methotrexate 2.5 MG tablet 8 tablets Orally once a week for 90 days omeprazole (PriLOSEC) [address] capsule Take 20 mg by mouth in the morning. Take before meals. [DISCONTINUED] latanoprost (Xalatan) 0.005 % ophthalmic solution Administer 1 drop into both eyes in the morning. [DISCONTINUED] terbinafine (LamISIL AT) 1 % cream Apply topically 2 (two) times a day 28.4 g 3 [DISCONTINUED] spironolactone (Aldactone) 25 MG tablet Take 1 tablet (25 mg) by mouth in the morning and 1 tablet (25 mg) before bedtime. 180 tablet 0 No current facility-administered medications on file prior to visit. 1. Right foot pain (Primary) She is seeing her district agent next week for nail hygiene and maintenance. She states he has said that he could inject some of the area in question in her foot that that will certainly not be a fix it may give her some temporary relief. After discussion I do think she is describing certainly some degree of nerve pain and probably somedegree of arthritis in the foot along with a somewhat contracted hamstring and Achilles tendon. We discussed a trial of treatment with physical therapy and letting the district agent do the injectionversus proceeding to try and isolate the nerve pain with an EMG. She would like to proceed with theEMG. - EMG 1 Extremeity; Future 2. Right leg weakness As above - EMG 1 Extremeity; Future 3. Limping As above - EMG 1 Extremeity; Future 4. Artificial knee joint present, right Comorbid condition complicating diagnosis - EMG 1 Extremeity; Future 5. Right leg swelling As above - EMG 1 Extremeity; Future 6. Rheumatoid arthritis involving multiple sites with positive rheumatoid factor ([facility]) Comorbid condition certainly contributing to and complicating diagnosis. documented in this [facility]02[facility]03[facility]25 Telephone encounter Note* Telephone Encounter - Will Tim MD - 10/20/2024 3:31 PM EST [id number] Miscellaneous Notes* Telephone Encounter - Will Tim MD - 10/20/2024 3:31 PM EST Prescription sent * Telephone Encounter - Yolie Avitia - 10/20/2024 2:57 PM EST Sonia called, she stated she is out of refills on her Atorvastatin. She stated she was not sure why because everything else, she had plenty of. She is asking for a refill to be sent to [facility] in for her. documented in this [facility]02[facility]03[facility]25 Telephone encounter Note* Telephone Encounter - Yolie Avitia - 10/20/2024 2:57 PM EST Sonia called, she stated she is out of refills on her Atorvastatin. She stated she was not sure why because everything else, she had plenty of. She is asking for a refill to be sent to [facility] for her. [id number] History of Present illness Narrative* Alexis Hawkins Izzy, DO - 08/12/2024 9:00 AM EST Images from the original note were not included. HISTORY OF PRESENT ILLNESS: Disha De La Garza is an 74 y.o. @ female. Follow up B/L TKA Right knee: 3 1/2 years s/p RT knee LINA (02/09/21), 3 years 9 months s/p RT TKA (11/10/20). Walking well unassisted. Good ROM. No issues or concerns with RT knee. Working without issues. Pt is pleased with outcomeof surgery . Left knee: 5 years s/p TKA (DOS 07/21/19), denies any issues or concerns. Denies pain. Not taking anything for pain. She is doing well and pleased with the outcome of surgery. She notes she is walking differently due to B/L feet arthritis, seeing Dr Osei Arevalo. Taking nabumetone, TYL arthritis MEDICATION: Current Outpatient Medications on File Prior to Visit Medication Sig Dispense Refill acetaminophen (Tylenol 8 Hour) 650 MG ER tablet Take 650 mg by mouth every 8 (eight) hours if needed for mild pain Do not crush, chew, or split. aspirin 81 MG EC tablet 81 mg in the morning and 81 mg in the evening and 81 mg before bedtime. atorvastatin (Lipitor) 10 MG tablet Take 1 tablet (10 mg) by mouth at bedtime 90 tablet 0 DULoxetine (Cymbalta) [address] capsule Take 1 capsule (60 mg) by mouth Daily 90 capsule 1 folic acid (Folvite) 1 MG tablet 1 mg latanoprost (Xalatan) 0.005 % ophthalmic solution Administer 1 drop into both eyes in the morning. metFORMIN (Glucophage) 1000 MG tablet Take 1 tablet (1,000 mg) by mouth in the morning and 1 tablet(1,000 mg) in the evening. Take with meals. 180 tablet 1 methotrexate 2.5 MG tablet 8 tablets Orally once a week for 90 days nabumetone (Relafen) 750 MG tablet Take 1 tablet (750 mg) by mouth in the morning and 1 tablet (750mg) before bedtime. 180 tablet 0 omeprazole (PriLOSEC) [address] capsule Take 20 mg by mouth in the morning. Take before meals. spironolactone (Aldactone) 25 MG tablet Take 1 tablet (25 mg) by mouth in the morning and 1 tablet (25 mg) before bedtime. 180 tablet 0 terbinafine (LamISIL AT) 1 % cream Apply topically 2 (two) times a day 28.4 g 3 No current facility-administered medications on file prior to visit. MEDICAL HISTORY: Past Medical History: Diagnosis Date Arthritis Body mass index (BMI) of 40.0-44.9 in adult ([facility]) Carpal tunnel syndrome Dermatomyositis ([facility]) Diabetes mellitus ([facility]) Fibrosis of right knee joint GERD (gastroesophageal reflux disease) Glucose intolerance (impaired glucose tolerance) History of being hospitalized 08/2017 cellulitis, left arm Hyperlipidemia ([facility]) Insulin resistance Postherpetic neuralgia ([facility]) Primary osteoarthritis of left knee Primary osteoarthritis of right knee Psoriasis (a type of skin inflammation) ([facility]) RA (rheumatoid arthritis) ([facility]) Reactive hypoglycemia Unspecified rotator cuff tear or rupture of left shoulder, not specified as traumatic Unspecified rotator cuff tear or rupture of right shoulder, not specified as traumatic ALLERGIES: Allergies Allergen Reactions Hydroxychloroquine Hives and Unknown Clindamycin Rash Swelling/rash Levofloxacin Rash VITALS: Visit Vitals OB Status Hysterectomy Smoking Status Every Day PHYSICAL EXAM: Ortho Exam Right knee with painless range of motion. 0-100 degrees total range of motion. No instability. Trace chronic appearing effusion. Normal temp. Left knee with 10-110 degrees of range of motion. No instability. Normal temp. Gait grossly normal. IMAGING: ASSESSMENT: ICD-10-CM 1. Arthritis of right knee M17.11 2. Arthritis of left knee M17.12 3. S/P total knee arthroplasty, left Z96.652 4. S/P total knee arthroplasty, right Z96.651 PLAN: Patient will do activities as tolerated. She will follow up if there is any problems questions or concerns. Patient is advised that although I will be leaving this practice there are still orthopedicproviders who she can turn to within our practice or locally. And she will contact our office if she needs an appointment or referral. I explained the diagnosis and reviewed treatment options. I answered all of the patient's questions. Aric Magana D.O. documented in this [facility] [id number] History of Present illness Narrative* Osei Arevalo, LUCIAM - 08/05/2024 2:00 PM EST Images from the original note were not included. Subjective Patient ID: Sonia De La Garza is a 74 y.o. female who presents for DM Foot Care ( Sonia De La Garza is a 74 y.o. female who presents for DM Foot Care. A1C 5.7 Dr. Davidson 07/03/2024 SS: [id number]). HPI Established patient returns to clinic for diabetic foot check. She also discusses significant pain bilateral midfoot. Review of Systems Constitutional: Negative for activity change and appetite change. Respiratory: Negative for chest tightness and shortness of breath. Cardiovascular: Positive for leg swelling. Negative for chest pain. Endocrine: Negative for cold intolerance and heat intolerance. Musculoskeletal: Positive for arthralgias, gait problem and joint swelling. Skin: Negative for color change and wound. Allergic/Immunologic: Negative for immunocompromised state. Neurological: Negative for weakness and numbness. Hematological: Does not bruise/bleed easily. Psychiatric/Behavioral: Negative for agitation and behavioral problems. Medications Current Outpatient Medications: acetaminophen (Tylenol 8 Hour) 650 MG ER tablet, Take 650 mg by mouth every 8 (eight) hours if needed for mild pain Do not crush, chew, or split., Disp: , Rfl: aspirin 81 MG EC tablet, 81 mg in the morning and 81 mg in the evening and 81 mg before bedtime., Disp: , Rfl: atorvastatin (Lipitor) 10 MG tablet, Take 1 tablet (10 mg) by mouth at bedtime, Disp: 90 tablet, Rfl: 0 DULoxetine (Cymbalta) [address] capsule, Take 1 capsule (60 mg) by mouth Daily, Disp: 90 capsule, Rfl: 1 folic acid (Folvite) 1 MG tablet, 1 mg, Disp: , Rfl: latanoprost (Xalatan) 0.005 % ophthalmic solution, Administer 1 drop into both eyes in the morning., Disp: , Rfl: metFORMIN (Glucophage) 1000 MG tablet, Take 1 tablet (1,000 mg) by mouth in the morning and 1 tablet (1,000 mg) in the evening. Take with meals., Disp: 180 tablet, Rfl: 1 methotrexate 2.5 MG tablet, 8 tablets Orally once a week for 90 days, Disp: , Rfl: nabumetone (Relafen) 750 MG tablet, Take 1 tablet (750 mg) by mouth in the morning and 1 tablet (750 mg) before bedtime., Disp: 180 tablet, Rfl: 0 omeprazole (PriLOSEC) [address] capsule, Take 20 mg by mouth in the morning. Take before meals., Disp: , Rfl: spironolactone (Aldactone) 25 MG tablet, Take 1 tablet (25 mg) by mouth in the morning and 1 tablet(25 mg) before bedtime., Disp: 180 tablet, Rfl: 0 terbinafine (LamISIL AT) 1 % cream, Apply topically 2 (two) times a day, Disp: 28.4 g, Rfl: 3 Allergies Hydroxychloroquine, Clindamycin, and Levofloxacin Past Surgical History Past Surgical History: Procedure Laterality Date APPENDECTOMY CARPAL TUNNEL RELEASE Right 07/26/2022 Dr Garcia, [facility] CHOLECYSTECTOMY HYSTERECTOMY IR JOINT ASPIRATION Right Arthrocentesis of the right knee joint IA KNEE SCOPE,DIAGNOSTIC Right Dr. Cardona [place] MANIPULATION KNEE JOINT UNDER GENERAL ANESTHESIA Right [...] with the knee extended and flexed bilaterally. Left foot: Isolated tenderness to palpation over the 2nd and 3rd tarsometatarsal joints. Warmth andedema over this area consistent with bursitis. Weakly positive grind test of the tarsometatarsal joints. Right foot: Isolated tenderness to palpation over the 2nd and 3rd tarsometatarsal joints. Warmth and edema over this area consistent with bursitis. Weakly positive grind test of the tarsometatarsal joints. Skin: Capillary Refill: Capillary refill takes less [...] and Affect: Mood normal. Behavior: Behavior normal. 08/23/2023: 2 radiographs of the left foot are nonweightbearing. Large enthesophyte at the insertion of the Achilles tendon and plantar fascia. Degenerative changes across the midfoot most notably atthe talonavicular joint with dorsal osteophytes. Difficult to comment on joint position and otherwise joint integrity due to the nonweightbearing nature of these films. Assessment/Plan ICD-10-CM 1. Onychomycosis B35.1 2. Onychodystrophy L60.3 3. Diabetic polyneuropathy associated with type 2 diabetes mellitus ([facility]) E11.42 4. Primary osteoarthritis of left ankle M19.072 5. Primary osteoarthritis of right ankle M19.071 Patient was examined and evaluated. 9 toenails were debrided in length and thickness today utilizing a nail nipper and electric bur crystal flat grinder without incident. I have discussed the importance of daily foot examinations and tight blood sugar control. We will follow up in 3 months for at risk diabetic foot evaluation. In regards to her continued bilateral foot pain discussed treatment options. She has known arthritis of bilateral midfoot joints. At this point she would not like to discuss injections or surgical options. She does have daily anti- inflammatory from her primary care physician that she will continue to take as needed as it does seem to help. Recommend continued use of supportive shoes, orthotics, daily stretching exercises. This note was created with the assistance of a speech recognition program. While intending to generate a timely document that accurately reflects the content of the visit, no guarantee can be provided that every grammatical or spelling mistake has been or will be identified or corrected. Thank you for your understanding. Osei Arevalo DPM documented in this [facility]10-29[facility] History of Present illness Narrative* Alen Rausch MD - 07/15/2024 2:30 PM EDT Images from the original note were not included. Patient is status post a colonoscopy. She was found to have diverticulosis. Patient is without complaints. On examination, she is awake alert and in no acute distress. Abdomen is soft, nondistended, nontender. 1. Positive colorectal cancer screening using Cologuard test 2. Diverticulosis large intestine w/o perforation or abscess w/o bleeding Patient is encouraged to take a high-fiber diet and drink plenty of fluids. Next screening colonoscopy in 10 years but the patient may not require another colonoscopy. documented in this [facility]10[facility] History of Present illness Narrative* Will Tim MD - 07/03/2024 8:30 AM EDT Images from the original note were not included. Patient ID: Sonia De La Garza is a 74 y.o. female who presents for: Hypertension Patient is here for follow-up of elevated blood pressure. She is not exercising and is adherent to a low-salt diet. Blood pressure is not well controlled at home. Cardiac symptoms: none. Patient denies chest pain, dyspnea, irregular heart beat, lower extremity edema, and palpitations. Cardiovascular risk factors: advanced age (older than 55 for men, 65 for women), dyslipidemia, hypertension, microalbuminuria, obesity (BMI >= 30 kg/m2), and sedentary lifestyle. Use of agents associated with hypertension: none. History of target organ damage: none. Hyperlipidemia Pt who presents for follow-up of dyslipidemia. A repeat fasting lipid profile was not done. The patient does not use medications that may worsen dyslipidemias (corticosteroids, progestins, anabolic steroids, diuretics, beta-blockers, amiodarone, cyclosporine, olanzapine). Exercise: never. Glucose intolerance Pt is on Metformin for her/his glucose intolerance and/or insulin resistance and has been for many years. She/He denies any side effects and will be in need of a refill today. Flowsheet Row Patient Outreach from 07/01/2024 in [facility] with Jennifer Desai [facility] Information ED, Hospital or Nursing Home Facility Discharge? ED Patient has been contacted within 1 week of being seen in the ED Yes Diagnosis Left Jaw Pain/ TMJ Discharge Date 06/27/24 Discharged To: Home Setting Discharge Hospital [facility] Engagement Call Start Time 1535 Admission Date 06/27/24 Medications Discharge medications reviewed and reconciled from hospital? Yes [Pt was prescribed Medrol Dosepak 4 mg (per dosepak instructions)] Is the patient having any side effects they believe may be caused by any medication additions or changes? No Does the patient have all medications ordered at discharge? Yes Appointments Does the patient have a primary care provider? Yes [Previously scheduled appt is on 07/03] Nursing Interventions Verified appointment date/time/provider Has the patient kept scheduled appointments due by today? Yes Self Management Patient Teaching Does the patient have access to their discharge instructions? Yes What is the patient's perception of their health status since discharge? Improving Is the patient/caregiver able to teach back the hierarchy of who to call/visit for symptoms/problems? PCP, Specialist, Home Health nurse, Urgent Care, ED, 911 Yes Wrap Up Wrap Up Additional Comments Pt presented to [facility] ER on 06/27 with left jaw pain. No acute findings, and pt was diagnosed with TMJ. Prescription was ordered for Medrol Dosepak 4 mg, per dosepak instructions. Spoke with pt today who states she is doing fine now. She is taking the medication. Denies any new issues with jaw. Discussed follow up. Pt has a dental appt in a couple weeks for fillings. Sheis already scheduled with PCP this week for 6 mo ov. Will add ER fu to this visit. Pt denies any other concerns and appreciative of the call. Call End Time 1541 Review of Systems Constitutional: Negative for activity change and fatigue. Respiratory: Negative for cough, shortness of breath and wheezing. Cardiovascular: Negative for chest pain, palpitations and leg swelling. Neurological: Negative for light-headedness and headaches. Objective The patient is pleasant and in no acute distress. The neck is supple and trachea is midline. No masses are appreciated. The heart is regular rate and rhythm without S3, S4. No murmur. The patient has normal respiratory pattern. The breath sounds are Diffusely decreased but symmetrical without evidence of rhonchi or rales. No wheezing. The skin is warm and dry. The lower extremities have trace edema. Mild limp The patient has good eye contact and speech is clear. Appropriate affect. Visit Vitals BP 126/72 Pulse 109 Ht 5' 3 Wt 174 lb SpO2 97% BMI 30.82 kg/m OB Status Hysterectomy Smoking Status Every Day BSA 1.87 m Labs dated May 30, 2024 reviewed Allergies Allergen Reactions Hydroxychloroquine Hives and Unknown Clindamycin Rash Swelling/rash Levofloxacin Rash 1. Essential hypertension (CMS/HCC) (Primary) Chronic problem, stable, to goal. Patient has been able to get off of her hypertensive medications. The spironolactone is cross treating. 2. Hypertensive nephropathy (CMS/HCC) Chronic problem, stable, demonstrating end organ damage from their current state of health. I stressed the importance of keeping blood pressure and blood sugar to goal, staying well hydrated,avoiding NSAIDs, and aerobic exercises as tolerated. Continue to monitor longitudinally. 3. Insulin resistance Chronic problem that is still not well controlled. Briefly review the importance of eliminating sugars and simple carbohydrates. 4. Impaired glucose tolerance test Chronic problem, stable, hemoglobin A1c Elevated but to goal. - metFORMIN (Glucophage) 1000 MG tablet; Take 1 tablet (1,000 mg) by mouth in the morning and 1 tablet (1,000 mg) in the evening. Take with meals. Dispense: 180 tablet; Refill: 1 5. Mixed hyperlipidemia (CMS/HCC) Chronic problem, stable, to goal - atorvastatin (Lipitor) 10 MG tablet; Take 1 tablet (10 mg) by mouth at bedtime Dispense: 90 tablet; Refill: 0 6. Left foot pain Chronic problem that is stable. She had minimal improvement on the oral steroids the emergency roomgave her for her TMJ. She notes she does get relief with the nabumetone. After discussing we are going to try to take 1 daily and then on the bad days she will take a 2nd dose in the evening. We did discuss the importance of understanding that this can increase risk of disease to the kidneys and the cardiovascular system including heart attack and stroke. She already has a calculated ASCVD risk of 29 percent. - nabumetone (Relafen) 750 MG tablet; Take 1 tablet (750 mg) by mouth in the morning and 1 tablet (750 mg) before bedtime. Dispense: 180 tablet; Refill: 0 7. TMJ syndrome She has had some mild problems with this but this was so severe that she went to the emergency room. It is better since the steroid intervention. I talked to her about [id number] bite guards for nighttime. 8. Encounter for examination following treatment at hospital This visit is prompted as a transition of care. The patient has been contacted by phone within 2 business days of discharge or at least 2 unsuccessful attempts were made to contact the patient within the 2 business days. Any available documents including; emergency room note, visit notes, consults, and discharge summary or continuity of care documents were reviewed. Any laboratory investigation or diagnostic imaging that was ordered by outside physicians and available was obtained and reviewed. The transition of care note is reviewed. a [id number] evaluation is done today. Medical decision making is complex in degree. 9. Polypharmacy Chronic problem The patient meets the criteria for polypharmacy; 5 or more prescriptions or multi-morbidity definedas 5 or more diagnoses. Polypharmacy can significantly increase the risk of preventable adverse drug events and negatively impact adherence. Consideration of diverse factors such as clinician agreement, patient perspective,and de-prescribing, as appropriate can improve patient outcomes while simplifying care. This requires longitudinal monitoring as there is at least a moderate risk of morbidity and requires at least amoderate degree of evaluation and management. 10. Obesity (BMI 30.0-34.9) Chronic problem and as noted above discussed lifestyle changes especially dietary intake. Again reviewed with her that while I understand she has limitations because of her feet she could do chair exercises. documented in [facility] [id number] History of Present illness Narrative* Will Tim MD - 06/10/2024 1:45 PM EDT Images from the original note were not included. Patient ID: Sonia De La Garza is a 74 y.o. female who presents for: Rash Patient presents for evaluation of a rash involving the under breasts . Rash started 1 month ago. Lesions are red , and raised in texture. Rash has changed over time. Rash discomfort . Associated symptoms: none. Patient has had contacts with similar rash. Review of Systems Constitutional: Negative for chills and fever. Respiratory: Negative for cough, shortness of breath and wheezing. Cardiovascular: Negative for chest pain and palpitations. Gastrointestinal: Negative for abdominal pain. Genitourinary: Negative for frequency and urgency. Objective Underneath both breasts is slightly indurated red area at border of the breast to the chest wall. Are actually a couple fissures in this region. Extending outwards from this macular red area are multiple small papules with areas of confluence. No pustules. Visit Vitals OB Status Hysterectomy Smoking Status Every Day Allergies Allergen Reactions Hydroxychloroquine Hives and Unknown Clindamycin Rash Swelling/rash Levofloxacin Rash Current Outpatient Medications on File Prior to Visit Medication Sig Dispense Refill acetaminophen (Tylenol 8 Hour) 650 MG ER tablet Take 650 mg by mouth every 8 (eight) hours if needed for mild pain Do not crush, chew, or split. aspirin 81 MG EC tablet 1 (one) time each day at the same time. atorvastatin (Lipitor) 10 MG tablet Take 1 tablet (10 mg) by mouth at bedtime 90 tablet 1 DULoxetine (Cymbalta) [address] capsule Take 1 capsule (60 mg) by mouth Daily 90 capsule 1 folic acid (Folvite) 1 MG tablet 1 mg latanoprost (Xalatan) 0.005 % ophthalmic solution Administer 1 drop into both eyes in the morning. metFORMIN (Glucophage) 1000 MG tablet Take 1 tablet (1,000 mg) by mouth in the morning and 1 tablet(1,000 mg) in the evening. Take with meals. 180 tablet 1 methotrexate 2.5 MG tablet 8 tablets Orally once a week for 90 days methylPREDNISolone (Medrol Dospak) 4 MG tablets Take as directed on package. 21 tablet 0 nabumetone (Relafen) 750 MG tablet Take 1 tablet (750 mg) by mouth in the morning and 1 tablet (750mg) before bedtime. 60 tablet 0 omeprazole (PriLOSEC) [address] capsule Take 20 mg by mouth in the morning. Take before meals. spironolactone (Aldactone) 25 MG tablet Take 1 tablet (25 mg) by mouth in the morning and 1 tablet (25 mg) before bedtime. 180 tablet 0 No current facility-administered medications on file prior to visit. 1. Yeast dermatitis Recurrent problem. We discussed the importance of clean and dry. We discussed the different type power orders from a preventative aspect. 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 In prescribing a new medication consideration of the following encompasses moderate decision making: the current prescriptions and supplements, the current allergies and medication intolerances, the current medical conditions, and potential drug interactions. Risks, benefits, and reason for starting their medication were discussed. The patient was given a chance to ask questions today and all questions were answered. The patient is to contact us if any other questions arise or if any problems occur with the adjustment in their medication. - fluconazole (Diflucan) 200 MG tablet; Take 1 tablet (200 mg) by mouth Daily for 10 days Dispense:10 tablet; Refill: 0 - terbinafine (LamISIL AT) 1 % cream; Apply topically 2 (two) times a day Dispense: 28.4 g; Refill:3 2. Polypharmacy Chronic problem The patient meets the criteria for polypharmacy; 5 or more prescriptions or multi-morbidity definedas 5 or more diagnoses. Polypharmacy can significantly increase the risk of preventable adverse drug events and negatively impact adherence. Consideration of diverse factors such as clinician agreement, patient perspective,and de-prescribing, as appropriate can improve patient outcomes while simplifying care. This requires longitudinal monitoring as there is at least a moderate risk of morbidity and requires at least amoderate degree of evaluation and management. 3. Obesity (BMI 30.0-34.9) Discussed that weight loss may help or decrease the frequency of further recurrences. documented in this encounterLakeland Regional [id number] Telephone encounter Note* Telephone Encounter - Vanda Wheatley - 06/02/2024 12:45 PM EDT Okay she wants to know if that was sent to [facility] in [place]? [facility] [id number] Miscellaneous Notes* [facility] En[facility] - [facility]02/[facility]24 12:45 PM EDT Okay she wants to know if that was sent to [employer] [employer] [facility] in [place]? * [facility]02/[facility]24 10:43 AM EDT Patient called stating she is having bad foot pain and this week she can't get in for a appointment, does this patient need to be seen before you prescribe her prednisone? documented in this encounterLak[facility] [id number] Telephone encounter Note* Telephone Encounter - [facility] - 06/02/2024 10:43 AM EDT Patient called stating she is having bad foot pain and this week she can't get in for a appointment, does this patient need to be seen before you prescribe her prednisone? [facility] [id number] History of Present illness Narrative* Alen Rausch MD - 05/23/2024 11:15 AM EDT Images from the original note were not included. Disha De La Garza 1950 Disha De La Garza is a 74 y.o. female presents with chief complaint of Consult (Colonoscopy- positive cologuard) HPI: Sonia De La Garza is a 74 year old woman presenting for a screening colonoscopy after a positive Cologaurd. She has not had a coloscopy previously. She is awake, alert, and in no acute distress. She denies abdominal pain, changes in bowel habits, or gross blood in the stool. She has a history of external hemorrhoids, but denies anorectal bleeding. She does not pursue any conservative therapies for the he morrhoids. The patient denies a family history of colon cancer or IBD. The patient is a Type II diabetic manage with Metformin. She reports a HbA1c of 5.2 about 2 years ago. She reports that her blood sugar is well-controlled. There is also a history of rheumatoid arthritis diagnosed 2 years ago. She tolerates treatment withMethotrexate and her symptoms are well controlled. She is also taking Omeprazole prophylactically to prevent gastric/duodenal ulcers from Methotrexate treatment. She denies reflux, difficulty swallowing or a dry cough. The patient denies other medical problems. SUBJECTIVE: MEDICATIONS: ALLERGIES Current Outpatient Medications Medication Instructions acetaminophen (TYLENOL 8 HOUR) 650 mg, Oral, Every 8 hours PRN, Do not crush, chew, or split. aspirin 81 MG EC tablet Every 24 hours atorvastatin (LIPITOR) 10 mg, Oral, Nightly DULoxetine (CYMBALTA) 60 mg, Oral, Daily folic acid (FOLVITE) 1 mg latanoprost (Xalatan) 0.005 % ophthalmic solution 1 drop, Both Eyes, Daily metFORMIN (GLUCOPHAGE) 1,000 mg, Oral, 2 times daily with meals methotrexate 2.5 MG tablet 8 tablets Orally once a week for 90 days omeprazole (PRILOSEC) 20 mg, Oral, Daily before breakfast spironolactone (ALDACTONE) 25 mg, Oral, 2 times daily Allergies Allergen Reactions Hydroxychloroquine Hives and Unknown Clindamycin Rash Swelling/rash Levofloxacin Rash PAST MEDICAL HISTORY: SOCIAL HISTORY SURGICAL HISTORY: Past Medical History: Diagnosis Date Arthritis Body mass index (BMI) of 40.0-44.9 in adult ([facility]) Carpal tunnel syndrome Dermatomyositis ([facility]) Diabetes mellitus ([facility]) Fibrosis of right knee joint GERD (gastroesophageal reflux disease) Glucose intolerance (impaired glucose tolerance) History of being hospitalized 08/2017 cellulitis, left arm Hyperlipidemia ([facility]) Insulin resistance Postherpetic neuralgia ([facility]) Primary osteoarthritis of left knee Primary osteoarthritis of right knee Psoriasis (a type of skin inflammation) ([facility]) RA (rheumatoid arthritis) ([facility]) Reactive hypoglycemia Unspecified rotator cuff tear or rupture of left shoulder, not specified as traumatic Unspecified rotator cuff tear or rupture of right shoulder, not specified as traumatic Social History Tobacco Use Smoking status: Every Day Current packs/day: 0.50 Types: Cigarettes Tobacco comments: 6-10 cigs/day Substance Use Topics Alcohol use: Not Currently Comment: caffeine: 2-3 cups per day Drug use: Not Currently Past Surgical History: Procedure Laterality Date APPENDECTOMY CARPAL TUNNEL RELEASE Right 07/26/2022 Dr Garcia, [facility] CHOLECYSTECTOMY HYSTERECTOMY IR JOINT ASPIRATION Right Arthrocentesis of the right knee joint [place] KNEE SCOPE,DIAGNOSTIC Right Dr. Cardona [place] MANIPULATION KNEE JOINT UNDER GENERAL ANESTHESIA Right 02/09/2021 Dr Magana REVERSE TOTAL SHOULDER ARTHROPLASTY Right 10/29/2023 Dr Magana ROTATOR CUFF REPAIR Left TONSILLECTOMY TOTAL KNEE ARTHROPLASTY 07/21/19 Left, 11/10/20 Right - Dr Magana TOTAL SHOULDER ARTHROPLASTY Left 04/19/2023 Dr Sergey clifton REVIEW OF SYMPTOMS: Review of Systems Constitutional: Negative for chills, fatigue and fever. Respiratory: Negative for cough, shortness of breath and wheezing. Cardiovascular: Negative for chest pain. Gastrointestinal: Negative for abdominal pain, blood in stool, constipation, diarrhea, nausea and vomiting. Patient reports external hemorrhoids Genitourinary: Negative for difficulty urinating, dyspareunia and flank pain. Musculoskeletal: Negative for arthralgias, back pain and myalgias. Neurological: Negative for dizziness, syncope and light-headedness. Psychiatric/Behavioral: The patient is not nervous/anxious. Endocrine: Negative for polydipsia, polyphagia and polyuria. OBJECTIVE: Visit Vitals BP 120/64 Ht 5' 3 Wt 177 lb BMI 31.35 kg/m OB Status Hysterectomy Smoking Status Every Day BSA 1.89 m Physical Exam Constitutional: Appearance: Normal appearance. HENT: Head: Atraumatic. Cardiovascular: Rate and Rhythm: Normal rate and regular rhythm. Pulses: Normal pulses. Heart sounds: No murmur heard. Pulmonary: Effort: Pulmonary effort is normal. No respiratory distress. Breath sounds: No wheezing. Abdominal: General: Abdomen is flat. There is no distension. Palpations: Abdomen is soft. There is no mass. Tenderness: There is no abdominal tenderness. Musculoskeletal: General: No swelling or tenderness. Skin: General: Skin is warm and dry. Neurological: Mental Status: She is alert. Psychiatric: Mood and Affect: Mood normal. ASSESSMENT AND PLAN: Assessment/Plan Diagnoses and all orders for this visit: Positive colorectal cancer screening using Cologuard test Encounter for screening for malignant neoplasm of colon - Ambulatory referral to General Surgery Plan will be to perform a colonoscopy. The procedure, benefits, risks including risks of bleeding, perforation, incomplete colonoscopy were discussed. If the colonoscopy is normal, next colonoscopy in 10 years. documented in this encounterLakeland Regional [id number] History of Present illness Narrative* Vivek Engle, GROUP MANAGING DIRECTOR - 05/13/2024 9:00 AM EDT Images from the original note were not included. Chief Complaint Patient presents with Right Shoulder - Follow-up HISTORY OF PRESENT ILLNESS: Disha De La Garza is an 74 y.o. @ female. RT shoulder: Started clindamycin 11/18 per Fatemeh, pt had rash 11/21 and was started on doxy 11/22 but noted a rash and itching all over. She stopped doxy 11/24. Notes she took a shower and the steri strips were almost completely off, then her RN friend put triple antibiotic on, and more steri strips. Then 11/16 she took another shower and started having alittle bit of clear drainage. Denies drainage since 11/18. 6 months 2 weeks s/p RT Rev TSA, (DOS 10/29/23). Was seeing wound care, was put on Cefdinir for 5 days (started 11/30). Has been cleared by wound care. Denies pain in shoulder. Taking TYL arthritis for other things. Denies N/T. Occas ache in upper armby end of day. Denies issues with incision. Pleased with outcome so far. ALLERGIES: Allergies Allergen Reactions Hydroxychloroquine Hives and Unknown Clindamycin Rash Swelling/rash Levofloxacin Rash HOME MEDICATIONS: Current Outpatient Medications Medication Instructions acetaminophen (TYLENOL 8 HOUR) 650 mg, Oral, Every 8 hours PRN, Do not crush, chew, or split. amoxicillin (Amoxil) 500 MG tablet 4 tabs PO once 30-60 mins before procedure with food aspirin 81 MG EC tablet Every 24 hours atorvastatin (LIPITOR) 10 mg, Oral, Nightly DULoxetine (CYMBALTA) 60 mg, Oral, Daily folic acid (FOLVITE) 1 mg latanoprost (Xalatan) 0.005 % ophthalmic solution 1 drop, Both Eyes, Daily metFORMIN (GLUCOPHAGE) 1,000 mg, Oral, 2 times daily with meals methotrexate 2.5 MG tablet 8 tablets Orally once a week for 90 days methylPREDNISolone (Medrol Dospak) 4 MG tablets Take as directed on package. omeprazole (PRILOSEC) 20 mg, Oral, Daily before breakfast spironolactone (ALDACTONE) 25 mg, Oral, 2 times daily PHYSICAL EXAM: Right Shoulder Exam Tenderness The patient is experiencing no tenderness. Range of Motion Active abduction: 120 Forward flexion: 120 Right shoulder internal rotation 0 degrees: buttocks. Muscle Strength Abduction: 5/5 Other Erythema: absent Sensation: normal Comments: Proximal wound is fully healed Vitals: There is no height or weight on file to calculate BMI. IMAGING: XR shoulder 2+ views right Imaging Result: May 13, 2024 x-rays AP and lateral of the right shoulder demonstrate reverse total shoulder replacement in good position alignment without signs of loosening fracture or failure. Impression: Stable appearance of right shoulder replacement Mainor Magana D.O. ASSESSMENT: ICD-10-CM 1. S/P reverse total shoulder arthroplasty, right Z96.611 amoxicillin (Amoxil) 500 MG tablet 2. Osteoarthritis of right glenohumeral joint M19.011 XR shoulder 2+ views right Procedures PLAN: Patient states that she is doing well overall with only occasional tightness in deltoid. Xrays showed stable RT reverse TSA. She will follow up in 6 months for RCK and xray. I discussed with the patient the general recommendation for the use of prophylactic antibiotics prior to dental work after joint replacement. I advised the patient that the use of prophylactic antibiotics for dental work is acontroversial topic. I currently have recommended that prophylactic antibiotics be used for 2 yearspostop and I did advise the patient that the guidelines and recommendations may change on this in the future. Amoxicillin sent in to patients pharmacy. Questions answered in laymen terms at the bedside. The diagnosis, home exercise plan and any ongoing restrictions/ recommendations reviewed. If unable to be reached in office, I recommend evaluation at nearest Emergency Room if any symptoms worsened or new symptoms develop for requiring urgent evaluation. Vivek Engle APRN-GLOBAL CHIEF EXPERIENCE OFFICER documented in this encounterLakeland Regional [id number] Note [id number]02-13-[address] MAGANA'S POST OPERATIVE SHOULDER INSTRUCTIONS: SURGEON'S WRITTEN INSTRUCTIONS: 1. If you have been given a cryo cuff after surgery you should use it as much as possible for the first 24-48 hours. After that it is optional. TIP: Many patients prefer to use it a little longer because it helps reduce pain. 2. You should wiggle your fingers frequently. 3. Change your dressings in 1 day. If steri-strips have been applied DO NOT remove them. When the wound is clean and dry you may leave it open to air but again DO NOT remove any steri-strips that have been applied. 4. You may shower in 1 day but do not let the water stream directly strike the wound. 5. Do pendulum exercises for at least 10 minutes twice a day. 6. If you have any problems or concerns, please call the office at [phone]. 7. Follow up as scheduled.[facility] [id number] [facility] Clinical Discharge Summary PERSON INFORMATION Name DISHA DE LA GARZA Age 73 Years 1950 Sex FEMALE Language French PCP WILL TIM Marital Status Single Med Service Observation Acct# Arrival 10/29/2023 08:16:12 Visit Reason SURGERY - RIGHT REVERSE TOTAL SHOULDER - ARTHREX Acuity LOS 000 26:22 Address: [address] [place] [address] Comment: PROVIDER INFORMATION VITALS INFORMATION Vital Sign Triage Latest Temp Oral 36.8 DegC 37.6 DegC Temp Temporal Temp Intravascular Temp Axillary Temp Rectal 02 Sat 100 % 95 % Respiratory Rate 18 br/min 16 br/min Peripheral Pulse Rate 88 bpm 94 bpm Apical Heart Rate Blood Pressure 149 mmHg / 74 mmHg 96 mmHg / 65 mmHg Comment: MEDICAL INFORMATION Allergy Info: Plaquenil Medication List: Medications to Continue That Have Not Changed Other Medications aspirin (aspirin 81 mg oral delayed release tablet) 1 tab(s) Oral (given by mouth) every day. atorvastatin (atorvastatin 10 mg oral tablet) 1 tab(s) Oral (given by mouth) every day. DULoxetine (DULoxetine 60 mg oral delayed release capsule) 1 cap(s) Oral (given by mouth) every day. (do not crush or chew). ferrous sulfate (FeroSul 325 mg (65 mg elemental iron) oral tablet) 1 tab(s) Oral (given by mouth) every day. folic acid (folic acid 1 mg oral tablet) 1 tab(s) Oral (given by mouth) every day. latanoprost ophthalmic (latanoprost 0.005% ophthalmic solution) 1 Drops Ophthalmic (the eye) once aday (at bedtime). metFORMIN (metFORMIN 1000 mg oral tablet) 1 tab(s) Oral (given by mouth) 2 times a day (scheduled). methotrexate (methotrexate 2.5 mg oral tablet) 8 tab(s) Oral (given by mouth) Every Sunday. multivitamin (Multivitamin, generic) 1 tab(s) Oral (given by mouth) every day. omeprazole (omeprazole 20 mg oral delayed release capsule) 1 cap(s) Oral (given by mouth) every day. oxyCODONE (oxyCODONE 5 mg oral tablet) 1 tab(s) Oral (given by mouth) every 6 hours (scheduled) as needed Pain - Moderate for 5 Days. Comment: Lab and Radiology Results Laboratory or Other Results This Visit (last charted value for your 10/29/2023 visit) Chemistry 10/29/2023 12:57 PM Glucose, POC: 112 mg/dL -- Normal range between ( 74 and 118 ) Diagnostic Radiology 10/29/2023 1:17 PM XR Shoulder 1 View Right: XR Shoulder 1 View Right Radiology Report 10/29/2023 4:00 PM Radiology Report: Radiology Report DIET & ACTIVITY Patient Activity Level: Patient Diet: ADA Diet Patient Activity Restrictions: DISCHARGE INFORMATION Discharge Disposition: Discharge Location: DEPART REASON INCOMPLETE INFORMATION PATIENT EDUCATION INFORMATION Instructions: Izzy- Post Op Shoulder (CUSTOM) Follow up: With: Address: When: TREY RICHMOND [address] [place] [address], [facility] [address] [place] [address] Business (1) 11/05/2023 11:30 AM With: Address: When: WILL TIM [address] [place] [address] [place] [address] Business (1) With: Address: When: Alexis Magana [address] [place] [address] [address] [place] [address] Business (1) 11/06/2023 10:00 AM DIAGNOSIS Arthritis of right glenohumeral joint Comment: JARRELL BULLOCK [facility]02-06-2024 Telephone encounter Note* Telephone Encounter - Vivek Engle NP - 10/23/2023 11:46 AM EST Post op pain rx. PDMP reviewed. [facility] [id number] Miscellaneous Notes* Telephone Encounter - Vivek Engle NP - 10/23/2023 11:46 AM EST Post op pain rx. PDMP reviewed. documented in this encounterLakeland Regional [id number] Evaluation note* Encounter Date Diagnosis Assessment Notes Treatment Notes Treatment Clinical Notes Jul, Carpal tunnel syndrome, right (I CD-10 - G56.01) At 2 weeks postop the patient is having a little bit of wound separation but it seems to be healingwell. I gave her recommendations for care such as peroxide once or twice a day and drying the woundoff. She is okay to shower. She is okay to use her hand as able. I will see her on an as needed Basis. Sutures were removed without difficulty [employer] Other 10-06-2022 Evaluation note* Encounter Date Diagnosis Assessment Notes Treatment Notes Treatment Clinical Notes Jun, Carpal tunnel syndrome, right (I CD-10 - G56.01) A number of this patient's symptoms are in a carpal tunnel distribution and with a positive Phalen sign this may be a very severe carpal tunnel that has been somewhat covered with gabapentin. She hasa very very tender joint IP on the right hand. But there is no question there is carpal tunnel in the right hand. I am sending her for an EMG RUE. I will follow-up with her after the EMG. 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 FINDINGS: Comparison made with recent plain film exam February 01, 2022. Similar cervical vertebral body alignment, several mm anterolisthesis throughout the cervical spine. No vertebral body fracture. Edematous signal bilateral facets T1/2, to a lesser extent right C7/T1 facets and neighboring soft tissues. Normal posterior fossa contents and spinal cord. C1/2 - C2/3: Normal C3/4: Normal disc volume. Mild left, moderate right neuroforaminal stenosis, uncovertebral hypertrophy and facet arthropathy. C4/5: Near obliteration of the CSF from the non-deformed spinal cord. Moderate left, severe right entry and mid neuroforaminal stenosis, facet arthropathy and uncovertebral hypertrophy. 2 x 3 mm posterior right facet cyst. C5/6: Near obliteration of the CSF surrounding the non-deformed spinal cord. Severe bilateral facet arthropathy, left greater than the right. C6/7: No spinal canal stenosis. Minimal right, severe left entry and mid neuroforaminal stenosis, uncovertebral hypertrophy and facet arthropathy. C7/T1 - T1/2: No spinal canal or neuroforaminal stenosis. IMPRESSION: 1. Moderate to severe neuroforaminal stenosis, greatest involvement C4/5, C5/6 2. Posterior element and deep soft tissue inflammatory signal, T1/2 and to a lesser extent right C7/T1 Report reported and signed by Greg Vargas on 05/31/2022 0717[facility] Medical SpecialistEvaluation noteNo assessment information availableMartins Ferry Hospital Ctr Work Phone: Evaluation noteNo InformationNort [employer] Other evaluation note* Diagnosis Post-operative pain- Primary Other acute postoperative pain documented in this encounter [facility] HealthcareEvaluation note* Diagnosis Yeast dermatitis Polypharmacy Issue of repeat prescriptions Obesity (BMI 30.0-34.9) Essential hypertension (CMS/HCC) Unspecified essential hypertension Hypertensive nephropathy (CMS/HCC) Unspecified hypertensive kidney disease with chronic kidney disease stage I through stage IV, or unspecified Insulin resistance Other abnormal glucose Mixed hyperlipidemia (CMS/HCC) Mixed hyperlipidemia Polypharmacy Issue of repeat prescriptions Obesity (BMI 30.0-34.9) documented in this encounter [facility]* Diagnosis Essential hypertension (CMS/HCC)- Primary Unspecified essential hypertension Hypertensive nephropathy (CMS/HCC) Unspecified hypertensive kidney disease with chronic kidney disease stage I through stage IV, or unspecified Insulin resistance Other abnormal glucose Impaired glucose tolerance test Mixed hyperlipidemia (CMS/HCC) Mixed hyperlipidemia Left foot pain Pain in soft tissues of limb TMJ syndrome Unspecified temporomandibular joint disorders Encounter for examination following treatment at hospital Polypharmacy Issue of repeat prescriptions Obesity (BMI 30.0-34.9) documented in this encounter [facility]* Diagnosis Positive colorectal cancer screening using Cologuard test- Primary Diverticulosis large intestine w/o perforation or abscess w/o bleeding documented in this encounter [facility]* Diagnosis Onychomycosis- Primary Dermatophytosis of nail Onychodystrophy Other specified disease of nail Diabetic polyneuropathy associated with type 2 diabetes mellitus (CMS/HCC) Primary osteoarthritis of left ankle Primary osteoarthritis of right ankle S/P total knee arthroplasty, left S/P total knee arthroplasty, right Arthritis of left knee Arthritis of right knee documented in this encounter [facility]* Diagnosis Arthritis of right knee Arthritis of left knee S/P total knee arthroplasty, left S/P total knee arthroplasty, right documented in this encounter [facility]* Diagnosis Primary osteoarthritis of left ankle- Primary documented in this encounter [facility]* Diagnosis S/P reverse total shoulder arthroplasty, right Osteoarthritis of right glenohumeral joint documented in this encounter [facility]* Diagnosis Positive colorectal cancer screening using Cologuard test- Primary Encounter for screening for malignant neoplasm of colon documented in this encounter [facility]* Diagnosis Mixed hyperlipidemia (CMS/HCC) Mixed hyperlipidemia documented in this encounter [facility]* Diagnosis Right foot pain- Primary Pain in soft tissues of limb Right leg weakness Muscle weakness (generalized) Limping Abnormality of gait Artificial knee joint present, right Right leg swelling Rheumatoid arthritis involving multiple sites with positive rheumatoid factor (CMS/HCC) documented in this encounter [facility]* Diagnosis Onychomycosis- Primary Dermatophytosis of nail Onychodystrophy Other specified disease of nail Diabetic polyneuropathy associated with type 2 diabetes mellitus (CMS/HCC) documented in this encounter [facility]* Diagnosis Chronic pain syndrome- Primary Right leg weakness Muscle weakness (generalized) documented in this encounter [facility]* Diagnosis Chronic pain syndrome- Primary Right leg weakness Muscle weakness (generalized) Neuropathy Mononeuritis of unspecified site documented [facility] this encounter [facility]* Diagnosis Chronic pain syndrome- Primary Right leg weakness Muscle weakness (generalized) documented in this encounter [facility]* Diagnosis Chronic pain syndrome- Primary Right leg weakness Muscle weakness (generalized) documented in this encounter [facility]* Diagnosis Chronic pain syndrome- Primary Right leg weakness Muscle weakness (generalized) Neuropathy Mononeuritis of unspecified site Right foot pain Pain in soft tissues of limb documented in this encounter [facility]* Diagnosis Encounter for Medicare annual wellness exam- Primary Advance directive in chart Encounter for screening for other disorder Screening for alcohol problem Screening for alcoholism Obesity (BMI 30.0-34.9) Screening mammogram, encounter for Screening for osteoporosis Special screening for osteoporosis Dermatomyositis (CMS/HCC) Dermatomyositis Rheumatoid arthritis involving multiple sites with positive rheumatoid factor (CMS/HCC) Recurrent major depressive disorder, in partial remission (HCC) (CMS/HCC) Mixed hyperlipidemia (CMS/HCC) Mixed hyperlipidemia Essential hypertension (CMS/HCC) Unspecified essential hypertension Hypertensive nephropathy (CMS/HCC) Unspecified hypertensive kidney disease with chronic kidney disease stage I through stage IV, or unspecified Menopause Symptomatic menopausal or female climacteric states Insulin resistance Other abnormal glucose Impaired glucose tolerance test Cigarette smoker Tobacco use disorder Cardiovascular event risk documented in this encounter [facility]* Diagnosis Recurrent major depressive disorder, in partial remission- Primary Osteopenia, unspecified location Impaired glucose tolerance test documented in this encounter [facility]* Diagnosis Onset Date Resolution Status Admit Date Lumbar stenosis acuteJuly 2024 8:18amSpondylolisthesis, lumbosacral regionacuteJuly 2024 8:18am [facility] Work Phone: Evaluation note* Diagnosis Onychomycosis- Primary Dermatophytosis of nail Onychodystrophy Other specified disease of nail Diabetic polyneuropathy associated with type 2 diabetes mellitus (HCC) documented in this encounter [facility] HealthcareHistory general Narrative - Reported* Type Description Date Medical History Hyperlipemia Medical HistoryDERMATOMYOSITISMedical HistoryPsoriasisMedical HistoryDiabetes Surgical HistoryhysterectomySurgical HistoryappendectomySurgical History tonsillectomy and adenoidectomySurgical HistorycholecystectomySurgical History left knee cdvfdluxxrl96/4/19Surgical Historyright knee nerve block Hospitalization Historysee above surgical history [employer] Other Hospital Discharge instructions Additional Instructions DISCHARGE INSTRUCTIONS FOR CARPAL TUNNEL RELEASE DIET -No restrictions unless diabetic or cardiac patient ACTIVITY -Activity as tolerated -Use hand is much as possible. -May drive in the a.m. as tolerated; may ride in car -Remove the white dressing 48 hours after surgery -Keep incision clean and dry, when showering place a bag with a rubber band over the operative area -Apply small amount of antibiotic ointment 1 time daily to wound after dressing is off OTHER -Call your physician's office for any fever, chills, nausea, vomiting, drainage, or headache. -Please call your physician's office and make an appointment to see your physician in two weeks.[facility] Work Phone: Reaawm for referral (narrative)No reason for referral information availableOhiohealth Doctors Hospital Work Phone: Reason for visit Narrative* Rehabilitation - Outpatient (Routine) - AuthorizedSpecialtyDiagnoses / ProceduresReferred By ContactReferred To ContactPhysical Therapy Diagnoses Chronic pain syndrome Right foot pain Right leg weakness Neuropathy Procedures IA OFFICE/OUTPATIENT [facility] 60 MINUTES Will Tim MD [address] [place] [address] Phone: tel: fax: Michela Campos PT Referral IDStatusReasonStart DateExpiration DateVisits RequestedVisits [id number] Specialty Services Required [facility] HealthcareReason for visit Narrative* Rehabilitation - Outpatient (Routine) - ClosedSpecialtyDiagnoses / ProceduresReferred By ContactReferred To Contact Physical Therapy Diagnoses Chronic pain syndrome Right foot pain Right leg weakness Neuropathy Procedures IA OFFICE/OUTPATIENT NEW [facility]IGH MDM 60 MINUTES Will Tim MD [address] [facility] [address] [place] [address] Phone: tel: fax: Michela Campos, MAHNAZ Referral IDStatusReasonStart DateExpiration DateVisits RequestedVisits [id number] Specialty Services Required [facility] Healthcare Summary Purpose Family History No Family History Records Found Relationship Condition Age at Onset Recorded Date/T kylee father Type 2 diabetes mellitus Unknown Malignant neoplasmUnknownNot SpecifiedType 2 diabetes mellitusUnknown Relationship Condition Age at Onset Recorded Date/T kylee father Type 2 diabetes mellitus Unknown Malignant neoplasmUnknownmotherType 2 diabetes mellitusUnknownfatherDeceased UnknownHypertensionUnknownHistory of strokeUnknownmotherHypertensionUnknown Diabetes mellitusUnknown Advance Directives No Advanced Directives Records Found Advance Directive Response Recorded Date/ Time Advance Directives No October 3:13pm Advance Directive Response Recorded Date/ Time Advance Directives No October 2:13pm TypeDate RecordedPatient RepresentativeExplanationAdvance Directives and Living Will Living WillAdvance Directives and Living Will11/29/2021 2016-04-04 Power Of AttorneyTypeDate RecordedPatient RepresentativeExplanation Advance Directives and Living Will Living WillAdvance Directives and Living Will Power Of Oil Sprayer Chief Complaint and Reason for Visit Chief Complaint Admit Date low back pain April 09, 2025 8:18 am M48.061 M4.17 April 09, 2025 9:07 am Reason for Visit Admit Date Lumbar stenosis April 09, 2025 8:18 am Spondylolisthesis, lumbosacral region Ju ly 2024 8:18am Chief Complaint m54.2 Chief Complaint m54.2 Carpal Tunnel Chief Complaint m54.2 Carpal Tunnel Carpal Tunnel Chief Complaint m54.2 Carpal Tunnel Carpal Tunnel Carpal Tunnel Chief Complaint Admit Date low back pain April 09, 2025 8:18 am Chief Complaint Admit Date low back pain April 09, 2025 8:18 am M48.061 M4.17 April 09, 2025 9:07 am Follow Up On Pain/Review X-Ray Results A ugust 2024 9:14am Reason for Visit Admit Date Lumbar stenosis April 09, 2025 8:18 am Spondylolisthesis, lumbosacral region Ju ly 2024 8:18am Lumbar stenosis May 12, 2025 9: 14am Spondylolisthesis, lumbosacral region Au ernie 2024 9:14am Reason for Referral Reason EMG/NCV RUE First Av ailable Location Diagnosis 1 Carpal tunnel syndro me, 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) Referral Organization [facility] urosurgery Referring Provider First Name Willie Referring Provider Last Name Radha Referring Provider Specialty Neurologica l Surgery Referred Organization [facility] Referred Provider Thomas Horner Referred Address [address] [place] [place], [place],[address] Referred Provider Specialty Neurology Referral Priority Routine Additional Source Comments INFORMATION SOURCE (unrecogn ized section and content) DATE CREATED AUTHOR 04/06/2022 [facility] DATE CREATED AUTHOR AUTHOR'S ORGANIZ ATION 06/13/2022 [facility] DATE CREATED AUTHOR AUTHOR'S ORGANIZ ATION 08/19/2022 [facility] DATE CREATED AUTHOR AUTHOR'S ORGANIZ ATION 02/03/2024 [facility] DATE CREATED AUTHOR AUTHOR'S ORGANIZ ATION 04/06/2025 [facility] DATE CREATED AUTHOR AUTHOR'S ORGANIZ ATION 04/10/2025 [facility] DATE CREATED AUTHOR AUTHOR'S ORGANIZ ATION 05/20/2025 [facility] DATE CREATED AUTHOR AUTHOR'S ORGANIZ ATION 05/29/2025 [facility] Care Teams (unrecognized sec tion and content) Team Status: Inactive Member Role Status Dates Willie Garcia MD Attending Provider Active Ernie Albarran Care ProviderActive Team Status: Active Member Role Status Dates Will Tim MD Primary Care Provider Active Team Status: Inactive Member Role Status Dates Will Tim MD Primary Care Provider Active Willie Garcia MDAault[facility] alliance [facility] ProviderActiveTeam MemberRelationshipSpecialtyStart DateEnd Date Will Tim MD [address] [place] [address] PCP - GeneralFamily Medicine02/08/23 Will Tim MD [address] [place] [address] (Fax) PCP - [facility]02/08/23 Alexis Magana DO [address] [place] [address] Referring PhysicianOrthopaedic Surgery10/25/23 Jeet Uriarte MD [address] [facility] Professional building 1 [place] [address] Referring PhysicianRheumatolog10/25/23 Osei Arevalo DPM [address] [place] [address] Referring PhysicianPodiatry2Team MemberRelationshipSpecialtyStart DateEnd Date Will Tim MD [address] [place] [address] PCP - Generalmi Medicine02/08/23 Will Tim MD [address] [place] [address] (Fax) PCP - [facility]02/08/23 Alexis Magana DO [address] [place] [address] Referring PhysicianOrthopaedic Surgery10/25/23 Jeet Uriarte MD [address] [facility] Professional building 1 [place] [address] Referring PhysicianRheumatolog10/25/23 Osei Arevalo DPM [address] [place] [address] Referring PhysicianPodiatr10/25/23Team MemberRelationshipSpecialtyStart DateEnd Date Will Tim MD [address] [facility] [place] [address] PCP - GeneralFamily Medicine02/08/23 Will Tim MD [address] [place] [address] PCP - [facility]02/08/23 Alexis Magana DO [address] [address] Referring PhysicianOrthopaedic Surgery10/25/23 Jeet Uriarte MD [address] [facility] Professional building 1 [place] [address] Referring PhysicianRheumatolog10/25/23 Osei Arevalo DPM [address] [place] [address] Referring PhysicianPodiatr10/25/23Team MemberRelationshipSpecialtyStart DateEnd Date Will Tim MD [address] [place] [address] [facility]/08/23 Will Tim MD [address] [place] [address] (Fax) PCP - [facility]02/08/23 Alexis Magana DO [address] [place] [address] Referring PhysicianOrthopaedic Surgery10/25/23 Jeet Uriarte MD [address] [facility] Professional building 1 [place] [address] Referring PhysicianRheumatolog10/25/23 Osei Arevalo DPM [address] [place] [address] Referring PhysicianPodiatr10/25/23Team MemberRelationshipSpecialtyStart DateEnd Date Will Tim MD [address] [place] [address] [facility]CP - [facility]02/08/23 Will Tim MD [address] [place] [address] (Fax) PCP - [facility]02/08/23 Alexis Magana DO [address] [facility] [address] [place] [address] Referring PhysicianOrthopaedic Surgery10/25/23 Jeet Uriarte MD [address] [facility] Professional building 1 [place] [address] Referring PhysicianRheumatolog10/25/23 Osei Arevalo DPM [address] [place], [place] [address] Referring PhysicianPodiatr10/25/23Team MemberRelationshipSpecialtyStart DateEnd Date Will Tim MD (Fax) PCP - GeneralFamily Medicine02/08/23 Will Tim MD [address] [facility] 100 [place] [address] (Fax) PCP - [facility]02/08/23 Alexis Magana DO [address] [facility] [address] [place] [address] Referring PhysicianOrthopaedic Surgery10/25/23 Jeet Uriarte MD [address] [facility] Professional building 1 [place] [address] Referring PhysicianRheumatolog10/25/23 Osei Arevalo DPM [address] [place], [place] [address] Referring PhysicianPodiatr10/25/23Team MemberRelationshipSpecialtyStart DateEnd Date Will Tim MD (Fax) PCP - GeneralFamily Medicine02/08/23 Will Tim MD [address] [place] [address] (Fax) PCP - [facility]02/08/23 Alexis Magana DO [address] [place] [address] Referring PhysicianOrthopaedic Surgery10/25/23 Jeet Uriarte MD [address] Professional [address] [place] [address] Referring PhysicianRheumatolog10/25/23 Osei Arevalo DPM [address] [place], [place] [address], [place] [phone] Referring PhysicianPodiatr10/25/23Team MemberRelationshipSpecialtyStart DateEnd Date Will Tim MD (Fax) [facility] Will Tim MD [address] [place] [address] (Fax) PCP - [facility]02/08/23 Alexis Magana DO [address] [place] [address] Referring PhysicianOrthopaedic Surgery10/25/23 Jeet Uriarte MD [address] Professional [address] [place] [address] Referring PhysicianRheumatology2 Osei Arevalo DPM [address] [place] [address] Referring PhysicianPodiatry2Team MemberRelationshipSpecialtyStart End Will Tim MD (Fax) PCP - GeneralFamily Medicine02/08/23 Will Tim MD [address] [address] (Fax) PCP - [facility]02/08/23 Alexis Magana DO [address] [facility] [address] [place] [address] Referring PhysicianOrthopaedic Surgery10/25/23 Jeet Uriarte MD [address] [facility] Professional building 1 [place] [address] Referring PhysicianRheumatolog10/25/23 Osei Arevalo DPM [address] [place] [address] Referring PhysicianPodiatry2Team MemberRelationshipSpecialtyStart DateEnd Will Tim MD (Fax) PCP - GeneralFamily Medicine02/08/23 Will Tim MD [address] [address] (Fax) PCP - [facility]02/08/23 Alexis Magana DO [address] [facility] [address] [place] [address] Referring PhysicianOrthopaedic Surgery10/25/23 Jeet Uriarte MD [address] [facility] Professional [address] [address] Referring PhysicianRheumatolog10/25/23 Osei Arevalo DPM [address] [place] [address] Referring PhysicianPodiatr10/25/23Team MemberRelationshipSpecialtyStart DateEnd Date Will Tim MD [address] [facility] [place] [address] PCP - GeneralFamily Medicine02/08/23 Will Tim MD [address] [place] [address] PCP - [facility]02/08/23 Alexis Magana DO [address] [address] Referring PhysicianOrthopaedic Surgery10/25/23 Jeet Uriarte MD [address] [facility] Professional [address] [address] Referring PhysicianRheumatolog10/25/23 Osei Arevalo DPM [address] [place], [place] [address] Referring PhysicianPodiatr10/25/23Team MemberRelationshipSpecialtyStart DateEnd Date Will Tim MD [address] [place] [address] PCP - GeneralFamily Medicine02/08/23 Will Tim MD [address] [place] [address] (Fax) PCP - [facility]02/08/23 Alexis Magana DO [address] [place] [address] Referring PhysicianOrthopaedic Surgery10/25/23 Jeet Uriarte MD [address] [facility] Professional building 1 [place] [address] Referring PhysicianRheumatolog10/25/23 Osei Arevalo DPM [address] [place] [address] Referring PhysicianPodiatr10/25/23Team MemberRelationshipSpecialtyStart DateEnd Date Will Tim MD [address] [place] [address] [facility] - [facility]02/08/23 Will Tim MD [address] [place] [address] (Fax) PCP - [facility]02/08/23 Alexis Magana DO [address] [facility] 150 [place] [address] Referring PhysicianOrthopaedic Surgery10/25/23 Jeet Uriarte MD [address] [facility] [address] [place] [address] Referring PhysicianRheumatolog10/25/23 Osei Arevalo DPM [address] [place] [address] Referring PhysicianPodiatr10/25/23Team MemberRelationshipSpecialtyStart DateEnd Date Will Tim MD (Fax) PCP - GeneralFamily Medicine02/08/23 Will Tim MD [address] [place] [address] (Fax) PCP - [facility]02/08/23 Alexis Magana DO [address] [place] [address] Referring PhysicianOrthopaedic Surgery10/25/23 Jeet Uriarte MD [address] [facility] Professional building 1 [place] [address] Referring PhysicianRheumatolog10/25/23 Osei Arevalo DPM [address] [place] [address] Referring PhysicianPodiatr10/25/23Team MemberRelationshipSpecialtyStart DateEnd Date Will Tim MD (Fax) PCP - GeneralFamily Medicine02/08/23 Will Tim MD [address] [place] [address] PCP - [facility]02/08/23 Alexis Magana DO [address] [place] [address] Referring PhysicianOrthopaedic Surgery10/25/23 Jeet Uriarte MD [address] [facility] [address] [place] [address] Referring PhysicianRheumatolog10/25/23 Osei Arevalo DPM [address] [place] [address] Referring PhysicianPodiatr10/25/23Team MemberRelationshipSpecialtyStart DateEnd Date Will Tim MD (Fax) PCP - Generalmi Medicine02/08/23 Will Tim MD [address] [place] [address] (Fax) PCP - [facility]02/08/23 Alexis Magana DO [address] [place] [address] Referring PhysicianOrthopaedic Surgery10/25/23 Jeet Uriarte MD [address] Professional [address] [place] [address] Referring PhysicianRheumatolog10/25/23 Osei Arevalo DPM [address] [place] [address] Referring PhysicianPodiatry2Team MemberRelationshipSpecialtyStart DateEnd Date Will Tim MD (Fax) PCP - GeneralFamily Medicine02/08/23 Will Tim MD [address] [place] [address] (Fax) PCP - [facility]02/08/23 Alexis Magana DO [address] [place] [address] Referring PhysicianOrthopaedic Surgery10/25/23 Jeet Uriarte MD [facility] Professional building [address] [place] [phone] Referring PhysicianRheumatolog10/25/23 Osei Arevalo DPM [address] [place] [address] Referring PhysicianPodiatry2Team MemberRelationshipSpecialtyStart DateEnd Date Will Tim MD (Fax) PCP - GeneralFamily Medicine02/08/23 Will Tim MD [address] [place] [address] (Fax) PCP - [facility]02/08/23 Alexis Magana DO [address] [place] [address] Referring PhysicianOrthopaedic Surgery10/25/23 Jeet Uriarte MD [address] [facility] Professional building 1 [place] [address] Referring PhysicianRheumatology2 Osei Arevalo DPM [address] [place] [address] Referring PhysicianPodiatr10/25/23Team MemberRelationshipSpecialtyStart DateEnd Date Will Tim MD [address] [place] [address] PCP - [facility]02/08/23 Alexis Magana DO [address] [place] [address] Referring PhysicianOrthopaedic Surgery10/25/23 Jeet Uriarte MD [address] [facility] Professional building [address] [place] [phone] Referring PhysicianRheumatolog10/25/23 Osei Arevalo DPM [address] [place] [address] Referring PhysicianPodiatry2Team MemberRelationshipSpecialtyStart DateEnd Date Will Tim MD [address] [place] [address] PCP - [facility]02/08/23 Alexis Magana DO [address] [place] [address] Referring PhysicianOrthopaedic Surgery10/25/23 Jeet Uriarte MD [address] [facility] Professional building [address] [place] [phone] Referring PhysicianRheumatology2 Osei Arevalo DPM [address] [place] [address] Referring PhysicianPodiatr10/25/23Team MemberRelationshipSpecialtyStart DateEnd Date Will Tim MD [address] [place] [address] (Fax) PCP - [facility]02/08/23 Alexis Magana DO [address] [place] [address] Referring PhysicianOrthopaedic Surgery10/25/23 Jeet Uriarte MD [address] [facility] Professional [address] [address] Referring PhysicianRheumatolog10/25/23 Osei Arevalo DPM [address] [place] [address] Referring PhysicianPodiatr10/25/23Team MemberRelationshipSpecialtyStart DateEnd Date Will Tim MD [address] [place] [address] PCP - [facility]02/08/23 Alexis Magana DO [address] [place] [address] Referring PhysicianOrthopaedic Surgery10/25/23 Jeet Uriarte MD [address] [facility] Professional building [address] [place] [phone] Referring PhysicianRheumatolog10/25/23 Osei Arevalo DPM [address] [place] [address] Referring PhysicianPodiatr10/25/23Team MemberRelationshipSpecialtyStart DateEnd Date Will Tim MD [address] [facility] 100 [place] [address] (Fax) PCP - [facility]02/08/23 Alexsi Magana DO [address] [place] [address] 150 [place] [address] Referring PhysicianOrthopaedic Surgery10/25/23 Jeet Uriarte MD [address] [facility] Professional building [address] [place] [phone] Referring PhysicianRheumatolog10/25/23 Osei Arevalo DPM [address] [place] [address] Referring PhysicianPodiatr10/25/23Team MemberRelationshipSpecialtyStart DateEnd Date Will Tim MD [address] [facility] 100 [place] [address] PCP - [facility]02/08/23 Alexis Magana DO [address] [place] [address] Referring PhysicianOrthopaedic Surgery10/25/23 Jeet Uriarte MD [address] [facility] Professional building 1 [place] [address] Referring PhysicianRheumatolog10/25/23 Osei Arevalo DPM [address] [place] [address] Referring PhysicianPodiatr10/25/23Team MemberRelationshipSpecialtyStart DateEnd Date Will Tim MD [address] [place] [address] (Fax) PCP - [facility]02/08/23 Alexis Magana DO [address] [facility] 150 [place] [address] Referring PhysicianOrthopaedic Surgery10/25/23 Jeet Uriarte MD [address] [facility] Professional building 1 [place] [address] Referring PhysicianRheumatolog10/25/23 Osei Arevalo DPM [address] [place] [address] Referring PhysicianPodiatr10/25/23Team MemberRelationshipSpecialtyStart DateEnd Date Will Tim MD [address] [place] [address] PCP - [facility]02/08/23 Alexis Magana DO [address] [facility] [address] [place] [address] Referring PhysicianOrthopaedic Surgery10/25/23 Jeet Uriarte MD [address] [facility] Professional building [address] [place] [address] Referring PhysicianRheumatolog10/25/23 Osei Arevalo DPM [address] [place] [address] Referring PhysicianPodiatr10/25/23Team MemberRelationshipSpecialtyStart DateEnd Date Will Tim MD [address] [facility] 100 [place] [address] (Fax) [facility]02/08/23 Alexis Magana DO [address] [facility] 150 [place] [address] Referring PhysicianOrthopaedic Surgery10/25/23 Jeet Uriarte MD [address] [facility] Professional building [address] [place] [address] Referring PhysicianRheumatolog10/25/23 Osei Arevalo DPM [address] [place] [address] Referring PhysicianPodiatry2Team MemberRelationshipSpecialtyStart DateEnd Will Tim MD [address] [place] [address] (Fax) PCP - [facility]02/08/23 Alexis Magana DO [address] [place] [address] Referring PhysicianOrthopaedic Surgery10/25/23 Jeet Uriarte MD [address] [facility] Professional building 1 [place] [address] Referring PhysicianRheumatolog10/25/23 Osei Arevalo DPM [address] [place] [address] Referring PhysicianPodiatr10/25/23Team MemberRelationshipSpecialtyStart DateEnd Date Will Tim MD [address] [place] [address] (Fax) PCP - [facility]02/08/23 Will Tim MD [address] [place] [address] (Fax) PCP - GeneralFamily Medicine02/10/25 Jeet Uriarte MD [address] [facility] Professional building [address] [place] [address] Referring PhysicianRheumatolog10/25/23 Osei Arevalo DPM [address] [place] [address] Referring PhysicianPodiatr10/25/23Team MemberRelationshipSpecialtyStart DateEnd Date Will Tim MD [address] [place] [address] (Fax) PCP - [facility]02/08/23 Will Tim MD [address] [address] (Fax) [facility] - [facility]/10/25 Jeet Uriarte MD [address] [facility] Professional building [address] [place] [address] Referring PhysicianRheumatology2 Osei Arevalo DPM [address] [place] [address] Referring PhysicianPodiatry2Team MemberRelationshipSpecialtyStart DateEnd Will Tim MD [address] [place] [address] (Fax) PCP - [facility]02/08/23 Will Tim MD [address] [address] (Fax) PCP - [facility]02/10/25 Jeet Uriarte MD [address] [facility] Professional building [address] [place] [phone] Referring PhysicianRheumatology2 Osei Arevalo DPM [address] [place] [address] Referring PhysicianPodiatry2Team MemberRelationshipSpecialtyStart DateEnd Date Will Tim MD [address] [address] (Fax) PCP - [facility]02/08/23 Jeet Uriarte MD [address] [facility] Professional building [address] [place] [address] Referring PhysicianRheumatolog10/25/23 Osei Arevalo DPM [address] [place] [address] Referring PhysicianPodiatr10/25/23Team MemberRelationshipSpecialtyStart DateEnd Will Tim MD [address] [address] (Fax) PCP - [facility]02/08/23 Will Tim MD [address] [address] (Fax) PCP - GeneralFamily Medicine02/10/25 Jeet Uriarte MD [address] [facility] Professional building [address] [place] [phone] Referring PhysicianRheumatology2 Osei Arevalo DPM [address] [place] [address] Referring PhysicianPodiatr10/25/23Team MemberRelationshipSpecialtyStart DateEnd Date Will Tim MD [address] [address] (Fax) PCP - [facility] System02/08/23 Will Tim MD [address] [place] [address] (Fax) PCP - GeneralFamily Medicine02/10/25 Jeet Uriarte MD [address] [place] [address] Referring PhysicianRheumatolog10/25/23 Osei Arevalo DPM [address] [place] [address] Referring PhysicianPodiatry2 Team Status: Inactive Member Role Status Dates Will Tim MD Primary Care Provider Active Start: April 09, 2025 End: April 09, 2025Maninder Stoddard ProviderActiveStart: April 09, 2025 End: April 09, 2025 Team Status: Inactive Member Role Status Dates Will Tim MD Primary Care Provider Active Start: May 12, 2025 End: May 12, 2025Maninder Stoddadr ProviderActiveStart: May 12, 2025 End: May 12, 2025Team MemberRelationshipSpecialtyStart DateEnd Date Will Tim MD [address] [place] [address] (Fax) PCP - [facility]02/08/23 Will Tim MD [address] [place] [address] (Fax) PCP - Generalmily Medicine02/10/25 Jeet Uriarte MD [address] [place] [address] Referring PhysicianRheumatolog10/25/23 Osei Arevalo DPM [address] [place] [address] Referring PhysicianPodiatry2Team MemberRelationshipSpecialtyStart DateEnd Will Tim MD [address] [place] [address] (Fax) PCP - [facility]02/08/23 Will Tim MD [address] [place] [address] (Fax) PCP - [facility]02/10/25 Jeet Uriarte MD [address] [place] [address] Referring PhysicianRheumatology2 Osei Arevalo DPM [address] [place] [address] Referring PhysicianPodiatry2Team MemberRelationshipSpecialtyStart DateEnd Will Tim MD [address] [place] [address] (Fax) PCP - [facility]02/08/23 Will Tim MD [address] [place] [address] (Fax) PCP - [facility]02/10/25 Jeet Uriarte MD [address] [place] [address] Referring PhysicianRheumatolog10/25/23 Osei Arevalo DPM [address] [place] [address] Referring PhysicianPodiatr10/25/23 Goals (unrecognized section and content) Goals may be documented in a n alternate sectionNo InformationGoals may be documented in an alternate sectionGoals may be documented in an alternate sectionNo InformationNo InformationGoals may be documented in an alternate sectionGoals may be documented in an alternate sectionGoals may be documented in an alternate section REASON FOR VISIT (unrecogniz ed section and content) RxjyuaJaevtxjzWqzdXjrhtzQdskdavpWclldihbkxdhUflbcsowjcikcmRtgqsjKjhgwved6qa po colonoscopyReasonCommentsDM Foot CareBev Pinky De La Garza is a 74 y.o. female who presents for DM Foot Care. A1C 5.7 Dr. Davidson 07/03/2024 SS:9-9.5WReason CommentsFollow-upReasonOnset DateCommentsAdvice Only4ReasonComments ConsultColonoscopy- positive cologuardSpecialtyDiagnoses / ProceduresReferred By ContactReferred To ContactGeneral Surgery Diagnoses Encounter for screening for malignant neoplasm of colon Procedures IA OFFICE/OUTPATIENT NEW HIGH MDM 60 MINUTES Will Tim MD [address] [place] [address] Alen Arshad MD [address] [address] Referral IDStatusReasonStart DateExpiration DateVisits RequestedVisits [id number] Specialty Services Required [id number] PainReasonCommentsDM Foot CarePCP: Dr. Stuart RENAE 10/27/24, A1C: 5.7, BS: doesn't check, SS: 9-9.5ReasonCommentsDM Foot CareEstablished patient presents today for diabetic nail care. PCP: Dr. Meeta RENAE 02/02/25, A1C: 5.7 (05/2024), BS: doesn't checkReasonCommentsAnnual ExamReason CommentsDiabetic foot checkBechel De La Garza is a 75 y.o. female. Established patient presents today for diabetic nail care. PCP: Dr. Tim 03/18/2025, A1C: 5.7 BS: doesn't check FOR RECORDS PERTAINING TO PATIENTS WHO ARE OR HAVE BEEN ENROLLED IN A CHEMICAL DEPENDENCY/SUBSTANCEABUSE PROGRAM, SOME INFORMATION MAY BE OMITTED. This clinical summary was aggregated from multiple sources. Caution should be exercised in using it in the provision of clinical care. This summary normalizes information from multiple sources, and as a consequence, information in this document may materially change the coding, format and clinical context of patient data. In addition, data may be omitted in some cases. CLINICAL DECISIONS SHOULD BE BASED ON THE PRIMARY CLINICAL RECORDS. [facility]. provides no warranty or guarantee of the accuracy or completeness of information in this document.
--- NOTE | 2025-07-16 14:04 | PM.CN ---
Consult Note: HPI Data of Consult Patient: known to practice within the last 3 years Consult date: 07/16/25 Requesting Physician: Selena Hernandez NP Primary Care Provider: LULI ALVAREZ Consult Narrative Reason for consult: low back and RLE pain Narrative: Neha Blanc a pleasant 75 year old female presents for evaluation low back pain. Pt has longstanding hx of low back pain, however in November of 2024 she noticed increased pain as well as numbness tingling and weakness of RLE without cause or injury. PCP Dr Alvarez was able to update emg which revealed chronic L5/S1 radiculopathy. Pain 8/10 increasing to 10/10 with standing, walking, bending, activity. Pain improved with sitting, lying, forward flexion, and sleeping. pt denies fall/injury. no prior lumbar surgery, did meet with KONSTANTIN Garcia recently for evaluation but she is not interested in surgical intervention. continues to engage in HEP as tolerated. currently utilizing duloxetine, gabapentin, tylenol. stopped nabumetone and nsaids due to GI upset. cc:: CC: Selena Hernandez NP Review of Systems ROS Musculoskeletal Reports: back pain and extremity pain PFSH PFSH Medical History Hypoglycemia ?E16.2 - Hypoglycemia, unspecified (ICD-10) High cholesterol ?E78.00 - Pure hypercholesterolemia, unspecified (ICD-10) Chronic GERD ?K21.9 - Gastro-esophageal reflux disease without esophagitis (ICD-10) Low back pain ?M54.50 - Low back pain, unspecified (ICD-10) Osteoarthritis ?M19.90 - Unspecified osteoarthritis, unspecified site (ICD-10) Smoker ?F17.200 - Nicotine dependence, unspecified, uncomplicated (ICD-10) Surgical History H/O arthroplasty ?Z96.60 - Presence of unspecified orthopedic joint implant (ICD-10) H/O arthroscopy ?Z98.890 - Other specified postprocedural states (ICD-10) History of tonsillectomy ?Z90.89 - Acquired absence of other organs (ICD-10) H/O: hysterectomy ?Z90.710 - Acquired absence of both cervix and uterus (ICD-10) History of cholecystectomy ?Z90.49 - Acquired absence of other specified parts of digestive tract (ICD-10) Hx of appendectomy ?Z90.49 - Acquired absence of other specified parts of digestive tract (ICD-10) H/O shoulder replacement ?Z96.619 - Presence of unspecified artificial shoulder joint (ICD-10) Social History Little interest or pleasure in doing things: not at all Feeling down, depressed, or hopeless: not at all Meds Home Medications and Allergies Home Medications ?Medication ?Instructions ?Recorded ?Confirmed ?Type aspirin 81 mg capsule 81 mg PO DAILY 02/18/25 03/30/25 History atorvastatin 10 mg tablet mg 02/18/25 History duloxetine 60 mg capsule,delayed mg PO 02/18/25 History release folic acid 800 mcg tablet 800 mcg PO DAILY 02/18/25 03/30/25 History gabapentin 100 mg tablet 100 mg PO TID 02/18/25 03/30/25 History metformin 1,000 mg tablet mg 02/18/25 History methotrexate sodium 2.5 mg tablet mg 02/18/25 History nabumetone 750 mg tablet mg 02/18/25 History omeprazole 20 mg capsule,delayed mg 02/18/25 History release Allergies Allergy/AdvReac Type Severity Reaction Status Date / Time clindamycin Allergy Severe Rash Verified 03/30/25 11:58 hydroxychloroquine (From Allergy Severe Rash Verified 03/30/25 11:58 Plaquenil) Exam Constitutional Documenting provider has reviewed patient's vital signs: yes Common normals: no apparent distress, oriented x3, healthy appearing, alert and well nourished General appearance: cooperative HENVA Common normals: normocephalic, hearing grossly normal bilaterally and moist oral mucous membranes Head and scalp: normocephalic Eye Common normals: PERRL Pupil: PERRL Neck & C-Spine Common normals: full ROM General: normal visual inspection Chest Common normals: inspection of chest normal Respiratory Common normals: normal respiratory effort, no retractions and no use of accessory muscles Back & Pelvis Lumbar spine/lower back: ROM limited, pain with ROM, lumbar spinal tenderness and straight leg raise positive right Sacroiliac joints: SI joint(s) abnormal Other: radiculopathy noted to right L4,5,S1. increased pain with standing and walking, improves significantly with forward flexion strength 4/5 in RLE and 5/5 in LLE Right SIJ positive gentry(patricks), gaenslens, thigh thrust, compression test Neuro Common normals: oriented x3 Sensorium/orientation: alert Psych Common normals: mental status grossly normal, thought process normal, cooperative, affect normal, speech normal and activity/motor behavior normal Speech: normal speech Thought process: normal thought process Results Imaging Lumbar MRI : Attestation: I have reviewed the pertinent imaging results. Radiologist's impression: L1-2 :Disc space narrowing with endplate changes. Diffuse disc bulge and endplate spurring. Mild central canal stenosis. Posterior element hypertrophy. Mild bilateral neural foraminal narrowing L2-3: Marked disc space narrowing with degenerative endplate change. Diffuse disc bulge with endplate spurring. Moderate to severe central canal stenosis. Moderate bilateral neural foraminal narrowing L3-4: Moderate disc space narrowing. Diffuse disc bulge and endplate spurring. Severe central canal stenosis. Posterior element hypertrophy. Marked bilateral neural foraminal narrowing L4-5: Moderate disc space narrowing. Diffuse disc bulge. Marked central canal stenosis. Posterior element hypertrophy. Marked bilateral neural foraminal narrowing L5-S1: Mild disc space narrowing. Mild anterolisthesis. Moderate central canal stenosis. Diffuse disc bulge. Posterior element hypertrophy. Moderate bilateral neural foraminal narrowing Additional Findings Additional findings: If on a controlled substance or opioids, I have checked an [place] report on this patient and there are no aberrancies noted in the prescribing history.??If on a controlled substance or opioid a drug screen was completed and reviewed within the last year, and if there has not been a drug screen completed we ordered one today to monitor higher risk, state monitored pain medication use. As part of providing excellent, safe, comprehensive care, the following was completed at our patient's visit: 1. A medication reconciliation and review to ensure accurate knowledge of current/active medications, including asking our patients to inform us about any gjqo-vyx-oybjzef medications or herbal remedies/nutritional supplements/alternative remedies. 2. A review to specifically ensure our patients have had annual screening for screening for depression, screening for tobacco use, and screening for unhealthy alcohol use. For concerning screenings had a discussion with the patient, provided patient education, and recommended follow-up with primary care provider when appropriate. If patient noted with a risk of falling, they received education on strength, gait, and balance training to prevent future risk of falling. Portions of this note may have been carried over from the previous visit and updated as appropriate. Please note this office utilizes paper charting in addition to the electronic medical record. A list of current medications, vitals, and PMH is available there as the clinical staff outside of myself do not have access to [employer] charting during the clinic day operations. As part of providing quality comprehensive care the current medications, vitals, and PMH were reviewed in the paper chart. Assessment and Plan Assessment and Plan (1) Lumbar stenosis with neurogenic claudication: (2) Lumbar spondylosis: (3) Sacroiliitis: Plan The patient has had over 3 months of moderate to severe low back and right LE pain with functional impairment and inadequate response to conservative care including NSAIDS (unless there are contraindication such as concurrent blood thinners), multiple oral or topical pain medications, and home exercise program/physical therapy.? Patient has completed >6 weeks of guided home exercise program and/or formal physical therapy program without relief of their symptoms.? I have reviewed the imaging of the lumbar spine and no red flags were identified.? The imaging reveals radiographic findings consistent with lumbar stenosis, lumbar ddd, spondylosis The Oswestry Disability Index was completed, and the patient scored a 24%.? right L4,5 L5,S1 TFESI under fluoroscopy consider right sij injection continue gabapentin 300mg bid and duloxetine 60mg daily f/u 2 weeks after injection
== END 2025-07-16 13:37 | disposition home or self-care (01) ==
LOC: PM 13:36
PROVIDERS: PCP Family Medicine; Visit Provider Nurse Practitioner
DX: M48.062 Spinal stenosis, lumbar region with neurogenic claudication (principal); M47.816 Spondylosis without myelopathy or radiculopathy, lumbar region; M46.1 Sacroiliitis, not elsewhere classified
CPT/HCPCS: G0463

== ENCOUNTER 2025-07-20 08:01 | Day surgery (SDC) | payer MEDICARE, OTHER, SELFPAY ==
--- OUTSIDE RECORDS SUMMARY | 2025-07-20 08:05 | XMS_ITS | Patient Health Record ---
Author Organization [facility] in [place] Address [address] [place] [address] Care Team Providers Care Launch Manager Name Role Phone None, Unknown or Primary Care Provider Unavailab le Reason For Referral No Information Plan Of Treatment No Information Insurance Providers Payer Name Payer Address Payer Phone Subscriber Number Group Number Insured Name Patient Relationship to Insured Coverage Start Date Coverage End Date [place] [address] [place] [address] [id number] Goldy Blancelf - patient is the [id number]8 MEDICARE SUPP CLAIM DEPT [address] [place], [place] [id number], Beverly Self - patient is the [id number] 2017
--- OUTSIDE RECORDS SUMMARY | 2025-07-20 08:05 | XMS_ITS | Clinical Summary ---
Author Organization [facility] Address [address] [place] [address] Phone Care Team Providers Care Handle Turner Name Role Phone Unavailable Primary Care Provider Unavailabl e Social History Tobacco UseTypesPacks/DayYears UsedDateSmoking Tobacco: Never Assessed CommentsUnknownSex and Gender InformationValueDate RecordedSex Assigned at Not on fileLegal UneMbiqux07/25/2022 8:11 PM ESTGender IdentityNot on fileSexual OrientationNot on file Plan of Treatment Not on file
--- OUTSIDE RECORDS SUMMARY | 2025-07-20 08:05 | XMS_ITS | Clinical Summary ---
Author Organization Keep[facility] tem Address [id number] [address] [place] [address] Care Team Providers Care Tow Car Driver Name Role Phone Will Alvarez MD Primary Care Provider + [phone] Allergies Active AllergyReactionsCriticalityNoted DateCommentsLevofloxacinRashLow 05/02/20236049JxxukyndgzllfheykgSekpZml53/03/2021 Medications MedicationSigDispense QuantityRefillsLast FilledStart DateEnd DateStatus methotrexate 2.5 mg chemo tablet Indications:rheumatoid arthritisTake 1 tablet by mouth once a week 8 tabs every Sunday Indications: rheumatoid arthritisActive byeprieu-vvuv-DB-calcium &mins (THERAGRAN-M) 9 mg iron-400 mcg tablet [...] ProblemNoted DateDiagnosed DateUrge incontinence of urine05/02/2023symptomatic microscopic yjhukzvai50/15/2023Left rotator cuff tear hugsjuoxeou84/14/2023 Neuropathy of left lower dfyojwfwd25/25/2023Leg length yieptjsruqk10/25/2023 Degenerative disc disease, wdedatvg72/25/2023hronic pain /12/2021 Recurrent bvajvjcgv72/27/2021hronic zvncoln3505/25/2021nkylosis of knee joint 02/03/2021tatus post right knee vrqilpttftt54/12/2021rimary osteoarthritis of right knee11/09/2020Unspecified rotator cuff tear or rupture of left shoulder, not specified as qclhuybnk41/16/2020Gastroesophageal reflux disease without rdevzvphcgy77/27/2020Chronic primary angle-closure glaucoma of both eyes 02/11/2020Rheumatoid zrvcheqlh37/19/6705Zacxrqu93/24/2020Artificial knee joint kchiwcp7407/29/2019Difficulty oinibge7507/27/2019Venous upaqnomkqtvak08/14/2019 Recurrent major depressive disorder, in partial eqncbqnks87/14/2019Mixed ertaghxvplmgfg72/06/2018Essential lqkuijgjryco14/13/2017 Family History Medical HistoryRelationNameCommentsDiabetesFatherDiabetesMotherAnesthesia problemsNeg HxRelationNameStatusCommentsFatherMother Social History Tobacco UseTypesPacks/DayYears UsedDateSmoking Tobacco: Every DayCigarettes0.342 Passive Smoke Exposure: PastSmokeless Tobacco: NeverAlcohol UseStandard Drinks/WeekCommentsNever0 (1 standard drink = 0.6 oz pure alcohol)AUDIT-CAnswer Date RecordedQ1: How often do you have a drink containing alcohol?Never 10/20/2020verage Number of DrinksNot on file10/20/2020Frequency of Binge DrinkingNot on file10/20/2020HQ-2AnswerDate RecordedTotal Vipxd292 Housing InstabilityAnswerDate RecordedAre you worried or concerned that in the next two months you may not have stable housing that you own, rent or stay in as a part of a household?No05/16/2023hildcareAnswerDate RecordedDo problems getting early childhood teacher assistant make it difficult for you to work [...] InformationValueDate RecordedSex Assigned at BirthNot on fileLegal NodTnnkny99/06/2015 11:53 AM EDTGender IdentityNot on fileSexual OrientationNot on file Last Filed Vital Signs Vital SignReadingTime TakenCommentsBlood Zdeisfxc079/59005/16/2023 1:58 PM EDT Fkshi5459/30/2023 1:58 PM UHIRwmkwinvcxd10.1 ??C (97 ??F)05/16/2023 1:58 PM EDT Respiratory Wzfv335205/16/2023 1:58 PM EDTOxygen Gajepbubkb741%05/16/2023 1:58 PM EDTInhaled Oxygen Concentration--Nrqoku11.5 kg (184 lb)08/07/2023 12:47 PM EST Qptsmn386 cm (5' 3 )08/07/2023 12:47 PM ESTBody Mass Index32.5908/07/2023 12:47 PM EST Plan of Treatment Health MaintenanceDue DateLast DoneCommentsDepression Gsdkkbtxy19/03/1964 DTaP,Tdap and Td Vaccines (1 - Tdap)1971Zoster (Shingles) Vaccine (2 of 3) Fall Risk Nsaowbool84/03/2017Adult BMI Gqgexrbjg84/21/2024 08/07/2023Tobacco Nfvdaotyc75OVID-19 Vaccine (4 - season), 10/26/2020, 10/05/2020Influenza Ohxttyh0605/18/2025 06/13/2023, 06/17/2022, 07/08/2021, Additional history existsRSV ( or age 60+ yrs) (1 - 1-dose 75+ series)2027 Goals GoalPatient Goal TypeAssociated ProblemsRecent ProgressPatient-Stated?Author Improve mobility Zenia Jason RN Note: Evaluation of progress towards goal: Maximize work with PT at discharge to strengthen Left TSR Medical Devices ImplantedTypeAreaManufacturerDevice IdentifierShelf Expiration DateModel / Serial / LotBearing Hum 36mm Cmprh Std Shldr Prlng Rvrs - [id number] Implanted:Qty: 1 on 05/16/2023 by Joshua Rincon MD at [facility]ALTHBearingLeft: ShoulderZimmer Biomet [id number] / / [id number] Bn Bio 40gm Rpl [id number] - Sna - [id number] Implanted:Qty: 2 on 11/10/2020 by Slava Magana [facility]ITALTCementRight: KneeZimmer [id number] / NA / [id number] Fem 5 Kn Rt Crcte Rtn - Sna - [id number] Implanted:Qty: 1 on 11/10/2020 by Slava Magana, DO at [facility] ImplantRight: Knee WLHKBRXCISZN91/31/[id number] / NA / [id number] Ptlr 35mm Medialized Dome - Sna - [id number] Implanted:Qty: 1 on 11/10/2020 by Slava Magana DO at [facility] ImplantRight: Knee UCYJAMXRNOBB00/30/[id number] / NA / [id number] Tib 5 5mm Cr Fx Brng - Sna - [id number] Implanted:Qty: 1 on 11/10/2020 by Slava Magana, DO at [facility] ImplantRight: [facility] DURIVLDZYGCG64/31/[id number] / NA / [id number] Kn Fx Brng W Spcl Ins Construct Rpl [id number] - Sna - [id number] Implanted:Qty: 1 on 11/10/2020 by Slava Magana DO at [facility] ImplantRight: Knee [id number] / NA / NABaseplate Krishna Cmprh Sm Shldr Aug Tpr Adpr - [id number] Implanted:Qty: 1 on 05/16/2023 by Joshua Rincon MD at [facility] ImplantLeft: Shoulder Stewart [id number] / / [id number] Krishna 36mm Std Glenosphere Clr Cd Cmprh Versa-Dial - [id number] Implanted:Qty: 1 on 05/16/2023 by Joshua Rincon MD at [facility] ImplantLeft: Shoulder Stewart [id number] / / [id number] Hum 55mm 11mm Cmprh Por Mt Shldr Rvrs Sys - [id number] Implanted:Qty: 1 on 05/16/2023 by Joshua Rincon MD at [facility] ImplantLeft: Shoulder Stewart Hvsomj71/25/[id number] / / [id number] Hum Cmprh Std Shldr Rvrs - [id number] Implanted:Qty: 1 on 05/16/2023 by Joshua Rincon MD at [facility] ImplantLeft: Shoulder Stewart [id number]/24/[id number] / / [id number] Tib 5 Kn Cmnt Fx Brng - Sna - [id number] Implanted:Qty: 1 on 11/10/2020 by Sl[facility] DO [facility]Right: KneeJJ QPBWZTLTNMTI92/30/[id number] / NA / [id number] Bn 30mm 6.5mm Cntr Hx Hd Ti Cmprh 3.5mm Strl Rvrs - [id number] Implanted:Qty: 1 on 05/16/2023 by [facility]con [facility]: ShoulderZimmer Biomet 11/09/[id number] / / [id number] Bn 20mm 4.75mm Lck Fx Ang Hx Hd Ti Cmprh 3.5mm Strl - [id number] Implanted:Qty: 1 on 05/16/2023 by [facility]con [facility]: ShoulderZimmer Biomet [id number] / / [id number] Bn 15mm 4.75mm Lck Fx Ang Hx Hd Ti Cmprh 3.5mm Strl - [id number] Implanted:Qty: 1 on 05/16/2023 by [facility]con MD at [facility]Left: ShoulderZimmer [employer] [id number] / / [id number] Bn 15mm 4.75mm Lck Fx Ang Hx Hd Ti Cmprh 3.5mm Strl - [id number] Implanted:Qty: 1 on 05/16/2023 by [facility]con MD at [facility]wLeft: ShoulderZimmer [employer] [id number] / / [id number] Bn 20mm 4.75mm Va Hx Hd Ti Cmprh 3.5mm Strl Rvrs Shldr - [id number] Implanted:Qty: 1 on 05/16/2023 by Joshua Rincon MD at [facility]ITALcrewLeft: ShoulderZimmer [employer] [id number] / / [id number] Insurance Advance Directives TypeDate RecordedPatient RepresentativeExplanationDurable Power of Plate Inspector 05/02/2023 12:37 PMPOA * Full Code (Latest Code Status on File) Date ActivatedDate InactivatedComments05/16/2023 10:16 AM05/16/2023 5:16 PM * Full Code Date ActivatedDate InactivatedComments11/10/2020 11:25 AM11/11/2020 7:52 PM Care Teams Team MemberRelationshipSpecialtyStart DateEnd Date Will Alvarez MD PCP - GeneralFamily Medicine10/20/20
--- OUTSIDE RECORDS SUMMARY | 2025-07-20 08:06 | XMS_ITS | Clinical Summary ---
Author Organization [facility] Address [address] [place] [address] Care Team Providers Care Buffing Wheel Inspector Name Role Phone Will Alvarez MD Unavailable [phone] Jeet Aguirre MD Unavailable Osei Arevalo DPM Unavailable Will Alvarez MD Primary Care Provider [phone] Allergies Active AllergyReactionsCriticalityNoted XtonXpfmsgzuTvxasgseouzUgbjKsk12/11/2024 Swelling/rash HydroxychloroquineHives,Pimrpet6102/08/20232383LqfbsqycixzzZktyThk45/16/2023 Medications MedicationSigDispense QuantityRefillsLast FilledStart DateEnd DateStatus aspirin [...] mg) by mouth at bedtime 90 tablet ctive nabumetone (Relafen) 750 MG tablet Take 750 [...] 90 capsule 5Active Active Problems ProblemNoted DateDiagnosed GaaxKfqglpmgljydapfu75/01/2025Diverticulosis large intestine w/o perforation or abscess w/o siqzvnpa63/29/2024rtificial knee joint present, right4Presence of artificial shoulder joint, right02/07/2024 Hypertensive ytagwtlehld91/23/2024Left foot pain08/23/2023ubital tunnel syndrome on left07/05/2023resence of artificial shoulder joint, left07/04/2023 Asymptomatic microscopic lpbtyuibr46/15/2023Nocturnal uiptkhdk17/15/2023Urge incontinence of urine05/01/2023nterolisthesis of cervical spine02/08/2023 Artificial knee joint present, left02/08/2023ervical exuibnmym42/25/2023hronic iyhxpno0902/08/2023hronic pain egjnqihl86/25/2023hronic primary angle-closure glaucoma of both eyes02/08/2023igarette zdoogd8202/08/2023egenerative disc disease, mohhqzzb37/25/8015Nrqljffupadejot13/25/2023Essential hypertension 02/08/2023astroesophageal reflux disease without uvfiwzldfcb19/25/2023Hx of abdominal yzpurezayjby23/25/2023Leg length kppixujtwtm30/25/2023Mixed ujbzzclbgsmegl90/25/2023Obesity (BMI 30.0-34.9)02/08/2023Recurrent major depressive disorder, in partial gowqzmvke48/25/2023Venous insufficiency 02/08/20230408Ecchfqubnecw01/09/2021Rheumatoid kutfohkfh78/19/2020Impaired glucose tolerance test01/22/2019Insulin jvhxywcnny46/08/2019 Resolved Problems ProblemNoted DateDiagnosed DateResolved DatePositive colorectal cancer screening using Cologuard testLeft shoulder pain/ Arthritis of right acromioclavicular joint/one spur /rthritis of left glenohumeral joint/ Neurologic disorder associated with diabetes rgjizwww14/ Neuropathy of left lower gcevyewkg29/rimary osteoarthritis of left knee/4Rupture of right rotator cuff/ Status post left knee kfueqscjljp57/25/202305/Tear of left rotator cuff / Encounters DateTypeDepartmentCare YtuxQzlekivzspx26/08/2025[facility] [address] Will Alvarez MD Mixed obbxxmeuzkgokk55/09/2025External Result Encounter [facility] Unsolicited ObermMarlena alberts FNP 05/19/2025 3:00 PM EDTProcedure Visit [facility] [address] [place] [phone] Osei Arevalo DPM Onychomycosis (Primary Dx); Onychodystrophy; Diabetic polyneuropathy associated with type 2 diabetes mellitus (HCC)05/19/2025 Bamboo flowsheet [facility] [address] [place] [address] Osei Arevalo, DPM 05/19/2025Travelfrom Last 3 Months Immunizations ImmunizationAdministration DatesNext DueABRYSVO - Respiratory syncytial virus (RSV), vaccine, bivalent, protein subunit RSV prefusion F, diluent reconstituted, 0.5 mL, PF08/20/2024Influenza, High Dose Seasonal, Preservative Free08/20/2024,06/17/2020,07/17/2017Influenza, High-dose Seasonal, Quadrivalent, Preservative Free06/28/2022Influenza, Seasonal, Quadrivalent, Adjuvanted 06/13/2023Influenza, Ixuypkwvqhk16/27/2023,06/17/2022,07/08/2021,06/17/2020, 06/16/2020,06/24/2019,07/17/2017,06/17/2016Influenza, injectable, quadrivalent, preservative free06/17/2022,07/08/2021,06/23/2019,06/17/2016Influenza, injectable, quadrivalent, preservative free, snxskofdt20/30/2020Influenza, trivalent, ubqlvtsnsm51/08/2019Pneumococcal Conjugate PCV 13012/29/2018 Pneumococcal Conjugate PCV 4Pneumococcal Polysaccharide PPSV23 01/14/2017,01/14/20152102LBEM-CQG-5 (COVID-19) vaccine, mRNA, spike protein, LNP, bivalent, [...] 2-3 cups per dayPHQ-2AnswerDate RecordedPatient Health Questionnaire-2 Gqbnx624EducationAnswerDate RecordedWhat is the highest level of school you have completed or the highest degree you have received?High school iusolaya89/06/2023CommentsNoSex and Gender InformationValueDate RecordedSex Assigned at BirthNot on fileLegal RugKmwgxl39/15/2023 7:09 PM EDT Gender IdentityNot on fileSexual OrientationNot on fileOccupationIndustryJob Start DateJob End DatePart timeNot on fileNot on fileNot on file Last Filed Vital Signs Vital SignReadingTime TakenCommentsBlood Zmgumxcy288/72002/02/2025 9:17 AM EDT Gywei12931/02/2025 2:03 PM EDTTemperature--Respiratory Rate--Oxygen Saturation 96%03/18/2025 2:03 PM EDTInhaled Oxygen Concentration--Pwlsat38.6 kg (180 lb) 05/19/2025 2:54 PM ZDYAxexrg382 cm (5' 3 )05/19/2025 2:54 PM EDTBody Mass Index 31.8905/19/2025 2:54 PM EDT Plan of Treatment DateTypeDepartmentCare Team (Latest Contact Info)Idfjisyovfr00/02/2025 3:00 PM ESTProcedure Visit [facility] [address] [place] [address] Osei Arevalo, DPKaleigh [address] [place], [place] [id number] Health MaintenanceDue DateLast DoneCommentsCT Lqkxpqeprvci1952FIT 1950FOBT03/19/19527887Ughgqtklrgaba1952DTaP/Tdap/Td Vaccines (1 - Tdap) 1959Diabetes: Hemoglobin A1C/, 05/30/2024, 05/02/2023, Additional history existsCOVID-19 Vaccine ( season)2025 Influenza Vaccine (#1)512/12/2023, 06/13/2023, 06/13/2023, Additional history existsMedicare Annual Wellness (AWV)605/, 02/05/2024, 2Diabetes: Urine Protein Zocnljmhy95, 11/29/2021, 06/14/20184991Jxfemcrnt83/13/202606/, 07/22/2021, 02/23/2020, Additional history existsDiabetes: Retinopathy Vyrvozuax14, 09/13/2022 FIT-DNA/6190Vpbfpijgyhq414Colorectal Cancer Izqxtlqvb50/16/2034Pneumococcal Vaccine: 65+ PsiqjElxxpvfex75/04/2024, 12/29/2018, 01/14/2017, Additional history existsHIB VaccinesAged OutNo longer eligible based on patient's age to complete this topicHPV VaccinesAged OutNo longer eligible based on patient's age to complete this topicHepatitis A VaccinesAged OutNo longer eligible based on patient's age to complete this topic Hepatitis B VaccinesAged OutNo longer eligible based on patient's age to complete this topicIPV VaccinesAged OutNo longer eligible based on patient's age to complete this topicMeningococcal B VaccineAged OutNo longer eligible based on patient's age to complete this topicMeningococcal VaccineAged OutNo longer eligible based on patient's age to complete this topicRotavirus VaccinesAged Out No longer eligible based on patient's age to complete this topic Procedures Procedure NamePriorityDate/TimeAssociated DiagnosisCommentsCBC (INCLUDES DIFF/PLT)Afaodqy5805/26/2025 1:40 PM EDT SED RATE BY MODIFIED BLMHTZVKGJIixdkrf13/09/2025 1:40 PM EDT COMPREHENSIVE METABOLIC PIFPTYaoxjgm07/09/2025 1:40 PM EDT MM TOMOSYNTHESIS SCREENING BI02/27/2025 2:37 PM EDT MICROALBUMIN / CREATININE URINE HFELXFzylrfj02/30/2025 8:31 AM EDT Essential hypertension Hypertensive nephropathy Insulin resistance Impaired glucose tolerance test HEMOGLOBIN R1FQopowrn91/30/2025 8:31 AM EDT Insulin resistance Impaired glucose tolerance test DIABETIC RETINOPATHY SCREENING - OU - BOTH KAFHCexpgjv45/01/2024 10:02 AM EDT QRBUSZIGKYLQsocmud85/16/2024 11:03 AM EDTLAB COLOGUARD?? COLON CANCER SCREEN Zgykavp8202/24/2024 9:00 AM EDT Colon cancer screening from Last 3 Months or Most Recently Relevant to Health Maintenance Results * Sedimentation rate, automated (05/26/2025 1:40 PM EDT)ComponentValueRef Range Test MethodAnalysis TimePerformed AtPathologist SignatureSED RATE BY MODIFIED OYPUBZTJAV38< OR = 30 mm/hQUESTSpecimen (Source)Anatomical Location / LateralityCollection Method / VolumeCollection TimeReceived Time05/26/2025 1:40 PM EDT05/26/2025 1:41 PM EDT Narrative Resulting Agency Comment Performing Organization Information ?Site ID: QPT ?Name: [facility] ?Address: [address] [place] [phone] ?Director: Edgardo aLke MD Authorizing ProviderResult TypeResult StatusJodi Obermeyer FNPLAB BLOOD ORDERABLESFinal ResultPerforming OrganizationAddressCity/State/ZIP CodePhone Number [facility] * (ABNORMAL) CBC and differential (05/26/2025 1:40 PM EDT)ComponentValueRef RangeTest MethodAnalysis TimePerformed AtPathologist SignatureWHITE BLOOD CELL COUNT6.53.8 - 10.8 Thousand/uLQUESTRED BLOOD CELL COUNT4.023.80 - 5.10 Million/eSDYYVEIMFDXHWJGX07.3(L)11.7 - 15.5 g/hZEYWSYBURCUAXDMM14.135.0 - 45.0 %JQIAUBQR06.380.0 - 100.0 oHWPEPVFTR40.127.0 - 33.0 irMLLXZSNZC80.232.0 - 36.0 g/dLQUESTComment: For adults, a slight decrease in the calculated MCHC value (in the range of 30 to 32 g/dL) is most likely not clinically significant; however, it should be interpreted with caution in correlation with other red cell parameters and the patient's clinical condition. RDW16.7(H)11.0 - 15.0 %QUESTPLATELET KISPJ683912 - 400 Thousand/uLQUESTMPV8.87.5 - 12.5 fLQUESTABSOLUTE NEUTROPHILS4,1601,500 - 7,800 cells/uLQUESTABSOLUTE LYMPHOCYTES1,637850 - 3,900 cells/uLQUESTABSOLUTE GAOZGPGPV759196 - 950 cells/uL QUESTABSOLUTE IGDFOJWDISQ51367 - 500 cells/uLQUESTABSOLUTE CWKXLYTJS462 - 200 cells/mYOXALOBVKDRGPMVXY90%KZCXGHZLKAHSNPSS34.3%QUESTMONOCYTES4.0%QUEST EOSINOPHILS1.9%QUESTBASOPHILS0.8%QUESTSpecimen (Source)Anatomical Location / LateralityCollection Method / VolumeCollection TimeReceived Time05/26/2025 1:40 PM EDT05/26/2025 1:41 PM EDT Narrative Resulting Agency Comment Performing Organization Information ?Site ID: QPT ?Name: [facility] ?Address: [address] [place] [phone] ?Director: Edgardo Lake MD Authorizing ProviderResult TypeResult [...] should be confirmed with a follow-up test. QOC250 - 25 mg/dLQUESTCreatinine0.620.60 - 1.00 mg/zNPZNKUAIMW45> OR = 60 mL/min/1.09c7VOQGOUXV/CREATININE RATIOSEE NOTE: (calc)QUESTComment: ?? Not Reported: BUN and Creatinine are within ?? reference range. ? Fohrvg496546 - 146 mmol/LQUESTPotassium, Bld3.93.5 - 5.3 mmol/LPMHALPybbklbx8635 - 110 mmol/LQUESTCarbon Vxhjdft2430 - 32 mmol/LQUESTCalcium9.08.6 - 10.4 mg/dL QUESTPROTEIN, TOTAL6.36.1 - 8.1 g/dLQUESTALBUMIN3.73.6 - 5.1 g/dLQUESTGLOBULIN 2.61.9 - 3.7 g/dL (calc)QUESTALBUMIN/GLOBULIN RATIO1.41.0 - 2.5 (calc)QUEST BILIRUBIN, TOTAL0.40.2 - 1.2 mg/dLQUESTALKALINE LWCBQKVHERJ78329 - 153 U/LQUEST WZE6572 - 35 U/OJTFMUEZL92 - 29 U/LQUESTSpecimen (Source)Anatomical Location / LateralityCollection Method / VolumeCollection TimeReceived Time05/26/2025 1:40 PM EDT05/26/2025 1:41 PM EDT Narrative Resulting Agency Comment Performing Organization Information ?Site ID: QPT ?Name: [facility] ?Address: [address] [place] [address], [address] [place] [phone] ?Director: Edgardo Lake MD Authorizing ProviderResult TypeResult StatusJodi Obermeyer FNPLAB BLOOD ORDERABLESFinal ResultPerforming OrganizationAddressCity/State/ZIP CodePhone Number [facility] * MM TOMOSYNTHESIS SCREENING BI (02/27/2025 2:37 PM EDT)Anatomical Region LateralityModalityOtherSpecimen (Source)Anatomical Location / Laterality Collection Method / VolumeCollection TimeReceived Time02/27/2025 2:37 PM EDT Narrative 02/27/2025 2:38 PM EDT [facility] ?[address] ? [place] [address] ? Mammography Report ? Signed ? Patient: HOLLI,NEHA G ?MR#: [id number] ?? : 1950 ?Acct:[id number] ?? Age/Sex: 74 / F ?ADM Date: 06/13/25 ?? Loc: MAMMO ? Attending Dr: WILL ALVAREZ ? Ordering Physician: WILL ALVAREZ ? Results: ? Date of Service: 02/27/25 ?Follow Up: ? Procedure(s): MM tomosynthesis screening BI ?? Accession Number(s): [id number] ? cc: WILL ALVAREZ ? Patient Name: ? NEHA BLANC ? MR#: [id number] ? : 1950 ? Exam Date: 02/27/2025 [...] at age ??77. ? LOCATION: ? [facility] ? BREAST COMPOSITION: ? The breasts [...] ? Signed By: ?02/27/25 1438 ? DD/ 1437 ? TD/TT: ? Textile Broker: Procedure Note Radiology, Radiologist, MD - 02/27/2025 [place] [address] Mammography Report Signed Patient: NEHA BLANC GMR#: [id number] : 1950cct:[id number] Age/Sex: 74 / FADM Date: 02/27/25 Loc: MAMMO Attending Dr: WILL ALVAREZ Ordering Physician: WILL ALVAREZResults: Date of Service: 02/27/25Follow Up: Procedure(s): MM tomosynthesis screening BI Accession Number(s): [id number] cc: WILL ALVAREZ Patient Name: NEHA BLANC MR#: [id number] : 1950 Exam Date: 02/27/2025 Ordering Doctor: [...] cancer at age 77. LOCATION: [facility] BREAST COMPOSITION: The breasts are almost [...] Guido Salcedo D.O. Signed By:02/27/25 1438 DD/ 36 TD/TT: Textile Broker: Authorizing ProviderResult TypeResult StatusEdjake Alvarez MDCLINISYNC IMAGING Final Result * (ABNORMAL) Microalbumin / creatinine urine ratio (02/13/2025 8:31 AM EDT) ComponentValueRef RangeTest MethodAnalysis TimePerformed AtPathologist SignatureCREATININE, RANDOM IXZKW9687 - 275 mg/dLQUESTALBUMIN, URINE3.7See Note: mg/dLQUESTComment: Reference Range: Reference Range Not established ALBUMIN/CREATININE RATIO, RANDOM CNDNK166(H)<30 mg/g creatQUESTComment: The ADA defines abnormalities in [...] specimen obtained by clean catch procedure / Ecxljlx4502/13/2025 8:31 AM EDT02/13/2025 3:49 PM EDT Narrative Resulting Agency Comment Performing Organization Information ?Site ID: QPT ?Name: [facility] ?Address: [address] [place] [address], [address] [place] [phone] ?Director: Edgardo Lake MD Authorizing ProviderResult TypeResult StatusWill Alvarez MDADVENTHEALTH OTTAWA URINE ORDERABLESFinal ResultPerforming OrganizationAddressCity/State/ZIP CodePhone Number [facility]ST [...] Volume Collection TimeReceived TimeBloodVenous blood specimen / Chtewko5602/13/2025 8:31 AM EDT02/13/2025 3:49 PM EDT Narrative Resulting Agency Comment Performing Organization Information ?Site ID: QPT ?Name: [facility] ?Address: [address] [place] [address], [address] [place] [phone] ?Director: Edgardo Lake MD Authorizing ProviderResult TypeResult Vivi Alvarez [facility] BLOOD ORDERABLESFinal ResultPerforming OrganizationAddressCity/State/ZIP CodePhone Number [facility] * Diabetic Retinopathy Screening - OU - Both Eyes (07/18/2024 10:02 AM EDT) Anatomical RegionLateralityModalityHeadOther Narrative Authorizing ProviderResult TypeResult Maty Early ODOPHTH PHOTOGRAPHYFinal Result * Colonoscopy (07/02/2024 11:03 AM EDT)Anatomical RegionLateralityModality Endoscopy Narrative Authorizing ProviderResult TypeResult Vivi Leo Hemeyer MDENDOSCOPY PROCEDURE ORDERABLESFinal Result * (ABNORMAL) Cologuard?? colon cancer screening (02/24/2024 9:00 AM EDT) ComponentValueRef RangeTest MethodAnalysis TimePerformed AtPathologist SignatureNONINV COLON CA DNA+OCC BLD SCRN STL-IMPPositive(A)Codxzqcu17/17/2024 5:41 PM EDTEXmeebee (CLIA #:[id number])Comment: POSITIVE TEST RESULT. A positive Cologuard result [...] Thomason et al, N Engl J Med 2014;370(14):3440-0867.) Cologuard may produce a false negative or [...] can be accessed at the following location: [email or web address]. Additional description of the Cologuard test process, warnings and precautions can be found at [email or web address]. Specimen (Source)Anatomical Location / LateralityCollection Method / Volume Collection TimeReceived TimeStool specimen (specimen)Rectal contents / Unknown 02/24/2024 9:00 AM EDT02/26/2024 11:26 AM EDT Narrative Authorizing ProviderResult TypeResult StatusEdjake HARVEY [facility]LE[facility]AGNOST[facility] ORDERABLESFinal ResultPerforming OrganizationAddressCity/State/ZIP CodePhone Number .XA[employer] (CLIA #:[id number]) [address] [address] [phone] eFolder (CLIA #:[id number]) [address] [phone] from Last 3 Months or Most Recently Relevant to Health Maintenance Insurance Advance Directives TypeDate RecordedPatient RepresentativeExplanationAdvance Directives and Living Will Living WillAdvance Directives and Living Will11/29/2021 2016-04-04 Power Of Patient Transport Officer Care Teams Team MemberRelationshipSpecialtyStart DateEnd Date Will Alvarez MD [address] [place] [address] PCP - ACO Reach02/08/23 Will Alvarez MD [address] [place] [address] PCP - GeneralFamily Medicine02/10/25 Jeet Aguirre MD [address] [facility] [address] [place] [address] Referring PhysicianRheumatology2 Osei Arevalo DPM [address] [place] [address] Referring PhysicianPodiatry2
--- OUTSIDE RECORDS SUMMARY | 2025-07-20 08:10 | XMS_ITS | CCD ---
Author Organization [facility] Inform ion Partnership [facility] Care Team Providers Care Drug Counselor Name Role Phone MD Willie Garcia Attending Provider MD Will Tim Primary Care Provider [phone] Willie Garcia Unavailable MD Willie Garcia Attending Provider MD Will Tim Primary Care Provider MEETA, DR ROCKWELL Primary Care Unavailable WINSLOW, DR ADALI Rausch Consulting Unavailable URIARTE, DR GRACE Admitting Unavailable URIARTE, DR GRACE Attending Unavailable URIARTE, DR GRACE Consulting Unavailable HEMEYER, DR ROCKWELL Primary Care Unavailable URIARTE, DR GRACE Consulting Unavailable URIARTE, DR GRACE [...] Unavailable Will Tim MD Primary Care Provider [phone] Will Tim MD Unavailable Alexis Magana DO Unavailable Jeet Uriarte MD Unavailable Osei Arevalo DPM Unavailable PETR Coleman Attending Unavailable PETR Coleman [...] Care Provider Willie Garcia MD Attending Provider Willie Garcia Attending Unavailable Willie Garcia Admitting [...] Allergen(s)Allergy TypeDate of OnsetReaction(s) Facility (20 sources)HydroxychloroquineDrug Ehjfmqr00-55-1723cqur[facility] (2 sources)Hydroxychloroquine; Translations: [Plaquenil]Drug Xgrdftb03-22-4179 [facility] (1 source)HydroxychloroquineDrug AllergyThe [facility] (20 sources)levoFLOXacinDrug Anblgft53-25-9173[facility] (20 sources)ClindamycinDrug Pobdkic93-88-8066AbltTKDK [facility] (1 source)ClindamycinDrug Pqozfnq65-01-4948[facility]negkT[facility] (1 source)HydroxychloroquineDrug Inluxxa22-66-1799MrnobaurwTogus Va [facility] Medications Current Medications MedicationDrug Class(es)DatesSig (Normalized)Sig [...] oral tablet (8 sources)Penicillin-class AntibacterialStart: 05-13-2024 End: 81-99-9034larw 4 tablets by mouth once at mealtimeamoxicillin (Amoxil) 500 MG tablet Indications: S/P reverse total shoulder arthroplasty, right 4 tabs PO once 30-60 mins before procedure with food 4 tablet 3 05/13/2024 05/23/2024 DiscontinuedStart: 16-18-1329lngr 4 tablets by mouth once at mealtimeamoxicillin (Amoxil) 500 MG tablet Indications: S/P reverse total shoulder arthroplasty, right 4 tabs PO once 30-60 mins before procedure with food 4 tablet 3 05/13/2024 Active End: 42-52-8437exesmleqmxj (Amoxil) 500 MG capsule Take 500 mg by mouth See administration instructions. Take 4 capsules 45 minutes prior to dental appointment 05/13/2024 Discontinued (Therapy completed)Aspir-81 (3 sources)Aspir-81 Activeaspirin 81 mg delayed release oral tablet (20 sources)Platelet Aggregation Inhibitor, Nonsteroidal Anti-inflammatory Drug Start: 40-85-8604ocrc 1 tablet by mouth once daily in the morningAspirin 81 mg Tablet,Delayed Release (Dr/Ec) Active 81 MG PO Every morning July 12, 2022 12:00am Complies with drug therapyatorvastatin 10 mg oral tablet (20 sources)HMG-CoA Reductase InhibitorStart: 07-12-2022 End: 92-05-8985mvra 1 tablet by mouth at bedtimeatorvastatin (Lipitor) 10 MG tablet Indications: Mixed hyperlipidemia Take 1 tablet (10 mg) by mouth at bedtime 90 tablet 3 10/20/2024 10/20/2025 ActiveAtorvastatin Calcium Active calcium citrate 1040 mg oral tablet (5 sources)Start: 93-37-5548hlqougs citrate 250 MG tablet Indications: Osteopenia 1 tablet 2-3 times daily as directed. 03/18/2025 Active cholecalciferol 0.125 mg oral tablet (5 sources)Vitamin DStart: 67-13-5351hkykymbcdbyjeys (Vitamin D-3) 125 MCG (5000 UT) tablet Indications: Vitamin D Deficiency OTC vitamin D3 5000 units, Winter dose, take 1 capsule daily. 03/18/2025 ActiveDULoxetine 60 mg delayed release oral capsule (20 sources)Serotonin and Norepinephrine Reuptake InhibitorStart: 02-18-2025 End: 58-06-8621xgdh 1 capsule by mouth once dailyDULoxetine (Cymbalta) [address] capsule Indications: Recurrent major depressive disorder, in partialremission Take 1 capsule (60 mg) by mouth Daily 90 capsule 1 03/23/2025 06/21/2025 Active Start: 08-05-2024 End: 46-84-4288hixw 1 capsule by mouth once dailyDULoxetine (Cymbalta) [address] capsule Indications: Recurrent major depressive disorder, in partialremission (HCC) (CMS/HCC) Take 1 capsule (60 mg) by mouth Daily 90 capsule 1 08/05/2024 ActiveStart: 01-28-2024 End: 96-30-0586qfhs 1 capsule by mouth once dailyDULoxetine (Cymbalta) [address] capsule Indications: Recurrent major depressive disorder, in partialremission (HCC) (CMS/HCC) Take 1 capsule (60 mg) by mouth Daily 90 capsule 1 01/28/2024 ActiveStart: 06-28-2023 End: 24-03-3529irmb 1 capsule by mouth in the morningDULoxetine (Cymbalta) [address] capsule Indications: Recurrent major depressive disorder, in partial remission (HCC) (CMS/HCC) Take 1 capsule (60 mg) by mouth in the morning. 90 capsule 1 06/28/2023 12/25/2023 ActiveStart: 69-08-7015yegs 2 capsules by mouth once daily in the morningDuloxetine 20 mg capsule,delayed release(DR/EC) Active 40 MG PO Every morning July 12, 2022 12:00am Complies with drug therapy Start: 13-60-2186dhbs 40 mg by mouth once daily in the morningDuloxetine Active 40 MG PO Every morning July 11, 2022 11:00pmStart: 79-05-9196erzx 1 capsule by mouth every twelve hoursDULoxetine HCl 20 MG 1 capsule Orally Twice a day for 30 day(s) Jun, Activeferrous sulfate 325 mg oral tablet (2 sources)Start: 10-02-2023 End: 11-13-9891jbcz 1 tablet by mouth at mealtimeferrous sulfate (FerrouSul) 325 (65 Fe) MG tablet Indications: Osteoarthritis of right glenohumeraljoint Take 1 tablet (325 mg) by mouth in the morning. Take with meals. 30 tablet 11 10/02/2023 10/01/2024 Activefolic acid 1 mg oral tablet (20 sources)Start: 38-67-2639hfpuo acid (Folvite) 1 MG tablet 1 mg 10/30/2023 ActiveStart: 44-33-6984hqfc 1 tablet by mouth every twenty-four hoursFolic Acid 800 MCG 1 tablet Orally Once a day for 30 day(s) Jun, Activegabapentin 400 mg oral capsule (18 sources)Anti-epileptic AgentStart: 92-21-9485Ziqgvmvxub 400 mg capsule Active 300 MG PO Twice daily May 12, 2025 9:20am Complies with drug therapy Start: 76-54-8523wpwq 1 capsule by mouth three times dailygabapentin (Neurontin) 100 MG capsule Take 100 mg by mouth 3 (three) times a day 02/18/2025 Active Start: 07-12-2022 End: 27-93-7663qear 1 capsule by mouth four times dailyGabapentin 400 mg capsule Discontinued 400 MG PO Four times daily July 12, 2022 12:00am 2024 9:21amStart: 53-79-3123gfeh 1 capsule by mouth every eight hoursGabapentin 400 MG 1 capsule Orally tid for 30 day(s) Jun, ActivemetFORMIN hydrochloride 1000 mg oral tablet (20 sources)BiguanideStart: 03-23-2025 End: 68-66-4590shxo 1 tablet by mouth in the morningmetFORMIN (Glucophage) 1000 MG tablet Indications: Impaired glucose tolerance test Take 1 tablet (1,000 mg) by mouth in the morning and 1 tablet (1,000 mg) in the evening. Take with meals. 180 tablet1 03/23/2025 09/19/2025 ActiveStart: 07-12-2022 End: 88-69-4533vwie 1 tablet by mouth twice dailyMetformin 1,000 mg tablet Active 1000 MG PO Twice daily July 12, 2022 12:00am Complies with drug therapymetFORMIN HCl Activemethotrexate 2.5 mg oral tablet (20 sources)Folate Analog Metabolic InhibitorStart: 35-86-2875Immukawhimuv Sodium 2.5 mg tablet Active 17.5 MG PO every week July 12, 2022 12:00am sunday Complies with drug therapyStart: 16-49-3755zbbs 17.5 mg by mouth every weekMethotrexate Sodium Active 17.5 MG PO every week July 11, 2022 11:00pm mondaystart: 40-35-3200Jdkpqejcfwpi 2.5 MG as directed Orally Jun, Activetake 8 tablets by mouth every weekmethotrexate 2.5 MG tablet 8 tablets Orally once a week for 90 days ActivemethylPREDNISolone (14 sources)CorticosteroidStart: 06-02-2024 End: 45-61-3829fucfofASAKFPHdmvrp (Medrol Dospak) 4 MG tablets Indications: Primary osteoarthritis of left ankle Take as directed on package. 21 tablet 06/02/2024 07/03/2024 Discontinued (Therapy completed)Start: 06-02-2024 methylPREDNISolone (Medrol Dospak) 4 MG tablets Indications: Primary osteoarthritis of left ankle Take as directed on package. 21 tablet 06/02/2024 ActiveStart: 04-29-2024 End: 52-11-1029mllmncOHSBYTLblrhh (Medrol Dospak) 4 MG tablets Indications: Primary osteoarthritis of left ankle ,Primary osteoarthritis of right ankle Take as directed on package. 21 tablet 04/29/2024 05/23/2024 DiscontinuedStart: 09-70-0107erdfsvBSXGIXYyuwxl (Medrol Dospak) 4 MG tablets Indications: Primary osteoarthritis of left ankle ,Primary osteoarthritis of right ankle Take as directed on package. 21 tablet 04/29/2024 ActiveStart: 80-54-5846Mrzp-Medrol 80 mg Jul, 80 mgMultivitamin preparation (3 sources)Start: 27-96-6053ouqh 1 tablet by mouth once daily in the morning Multivitamin Active 1 TAB PO Every morning July 11, 2022 11:00pmStart: 75-96-1295papv 1 tablet by mouth once daily in the morningMultivitamin Active 1 TAB PO Every morning July 12, 2022 12:00amnabumetone 500 mg oral tablet (20 sources)Nonsteroidal Anti-inflammatory DrugStart: 41-43-9335avny 1 tablet by mouth once dailyNabumetone 500 mg tablet Active 500 MG PO Daily April 09, 2025 12:00am Complies with drug therapyStart: 21-91-0533iikc 1 tablet by mouth in the morningnabumetone (Relafen) 750 MG tablet Take 750 mg by mouth in the morning and 750 mg before bedtime. 01/23/2025 ActiveStart: 06-02-2024 End: 14-29-7577qohw 1 tablet by mouth in the morningnabumetone (Relafen) 750 MG tablet Indications: Left foot pain Take 1 tablet (750 mg) by mouth in the morning and 1 tablet (750 mg) before bedtime. 180 tablet 07/03/2024 10/01/2024 ActiveStart: 07-12-2022 End: 35-07-2150Xpdlqsihux 750 mg tablet Discontinued MG July 12, 2022 12:00am July 12, 2022 2:25pmStart: 07-12-2022 End: 95-79-5886Fdcmebdmmw Discontinued MG TABLET July 11, 2022 11:00pm July 12, 2022 1:25pmomeprazole 20 mg delayed release oral capsule (20 sources)Proton Pump InhibitorStart: 27-23-6377akgy 1 capsule by mouth before mealtimeomeprazole (PriLOSEC) [address] capsule Take 20 mg by mouth in the morning. Take before meals. 04/16/2023 ActiveStart: 96-77-1129dqve 1 tablet by mouth once daily in the morningOmeprazole 20 mg Tablet,Delayed Release (Dr/Ec) Active 20 MG PO Every morning July 12, 2022 12:00am Complies with drug therapyOmeprazole Activevitamin k2 0.1 mg oral capsule (5 sources)Start: 46-78-1275umyx 1 capsule by mouth once dailyMenaquinone-7 (Vitamin K2) 100 MCG capsule Indications: Osteopenia, unspecified location Take 1 capsule by mouth Daily 03/18/2025 Active Completed/Discontinued Medications MedicationDrug Class(es)DatesSig (Normalized)Sig (Original)cephalexin 500 mg oral capsule (4 sources)Cephalosporin AntibacterialStart: 07-26-2022 End: 40-44-9424vgxx 1 capsule by mouth three times dailyCephalexin 500 mg capsule Discontinued 500 MG PO Three times daily July 26, 2022 1:00am April 09, 2025 8:25amcitalopram 10 mg oral tablet (6 sources)Serotonin Reuptake InhibitorStart: 07-12-2022 End: 71-47-8429Ojltlghgwz 10 mg tablet Discontinued MG July 12, 2022 12:00am July 12, 2022 2:21pmStart: 07-12-2022 End: 75-84-4707Bmtcogrtjp Discontinued MG TABLET July 11, 2022 11:00pm July 12, 2022 1:21pmfluconazole 200 mg oral tablet (2 sources)Azole AntifungalStart: 06-10-2024 End: 10-28-1490vcte 1 tablet by mouth once dailyfluconazole (Diflucan) 200 MG tablet Indications: Candidiasis Take 1 tablet (200 mg) by mouth Dailyfor 10 days 10 tablet 06/10/2024 06/20/2024 Expiredlatanoprost 0.05 mg/ml ophthalmic solution (20 sources)Prostaglandin AnalogStart: 01-04-2023 End: 89-89-0854bcav 1 drop(s) into the eye(s) in the morninglatanoprost (Xalatan) 0.005 % ophthalmic solution Administer 1 drop into both eyes in the morning. 01/04/2023 10/27/2024 Discontinued (Therapy completed)Multivitamin Tablet (3 sources)Start: 07-12-2022 End: 42-84-4756ugcn 1 tablet by mouth once daily in the morningMultivitamin Tablet Discontinued 1 TAB PO Every morning July 12, 2022 12:00am April 09, 2025 8:26amoxyCODONE hydrochloride 5 mg oral tablet (6 sources)Opioid AgonistStart: 07-26-2022 End: 48-63-8873itav 5-10 mg by mouth every six hours as needed for painOxycodone 5 mg tablet Discontinued 5 - 10 MG PO Q6H as needed for Pain 40 8 July 26, 20222024 8:26ampredniSONE 20 mg oral tablet (8 sources)Start: 07-12-2022 End: 86-14-6031oqat 1 tablet by mouth once daily in the morningPrednisone 20 mg tablet Discontinued 20 MG PO Every morning July 12, 2022 12:00am April 09, 2025 8:26amStart: 22-24-3293gjkqtuEQSB 5 MG 1 tablet 3 times a day for 3 days, 1 tablets 2 times a day for 3 days , 1 tablet 1 times a day for 3 days Orally as directed for 9 days Jun, Activespironolactone 25 mg oral tablet (20 sources)Aldosterone AntagonistStart: 12-26-2023 End: 61-38-5108uzfi 1 tablet by mouth in the morningspironolactone (Aldactone) 25 MG tablet Indications: Venous insufficiency Take 1 tablet (25 mg) by mouth in the morning and 1 tablet (25 mg) before bedtime. 180 tablet 12/26/2023 10/27/2024 Discontinued (Therapy completed)terbinafine hydrochloride 10 mg/ml topical cream (16 sources)Allylamine AntifungalStart: 06-10-2024 End: 15-45-0419zfelstpisbr (LamISIL AT) 1 % cream Indications: Yeast dermatitis Apply topically 2 (two) times a day 28.4 g 3 06/10/2024 10/27/2024 Discontinued (Therapy completed)traMADol hydrochloride 50 mg oral tablet (9 sources)Opioid AgonistStart: 07-12-2022 End: 01-93-3163tgws 50-100 mg by mouth three times daily as needed for pain Tramadol 50 mg tablet Discontinued 50 - 100 MG PO Three times daily as needed for Pain July 12, 2022 12:00am July 26, 2022 9:04amStart: 06-22-2022 take 1 tablet by mouth every twenty-four hourstraMADol HCl 50 MG 1 tablet as needed Orally Once a day Jun, ActiveTriamcinolone (3 sources)CorticosteroidStart: 21-25-8844VNBHNCG - 10 mg Aug, 40 mg Problems Active Problems Problem ClassificationProblemDateDocumented DateEpisodic/ChronicDisorders of lipid metabolism (20 sources)Mixed hyperlipidemia; Translations: [Mixed hyperlipidemia]Onset: 340191-82-6791TmbjsyvMwylkatjl of teeth and jaw (2 sources)Temporomandibular unnvk-rafm-fcptjqzsljx syndrome; Translations: [Arthralgia of temporomandibular joint, unspecified side]33-67-1046Yetlzjfl Diverticulosis and diverticulitis (20 sources)Diverticulosis of large intestine; Translations: [Diverticulosis of large intestine without perforation or abscess without bleeding]Onset: 617945-29-5073MpeywryEtbvxpuuko disorders (20 sources)Gastro-esophageal reflux disease without esophagitis; Translations: [Gastroesophageal reflux disease without esophagitis]Onset: ChronicEssential hypertension (20 sources)Essential (primary) hypertension; Translations: [Essential hypertension]Onset: 270536-85-8012VtflkekHjduwmnzpfili symptoms and ill- defined conditions (20 sources)Nocturnal enuresis; Translations: [Nocturnal enuresis]Onset: 839730-40-1856WbusbfjBztoocrx (20 sources)Bilateral angle-closure glaucoma; Translations: [Chronic angle- closure glaucoma, bilateral, stage unspecified]Onset: ChronicHypertension with complications and secondary hypertension (20 sources)Hypertensive renal disease; Translations: [Hypertensive chronic kidney disease with stage 1 throughstage 4 chronic kidney disease, or unspecified chronic kidney disease]Onset: 100654-41-3090UhqcpjkRxksxnb and fatigue (20 sources)Fatigue; Translations: [Chronic fatigue, unspecified]Onset: 555937-63-4249AtueejlKily disorders (20 sources)Recurrent major depression in partial remission; Translations: [Major depressive disorder, recurrent, in partial remission]Onset: 02-08-2023 24-61-4017SjnooidVxsxmbo (6 sources)Candidiasis of skin; Translations: [Candidiasis of skin and nail] 69-40-7120GcgylrrwOvfgukmzz; nephrosis; renal sclerosis (2 sources)Recurrent hematuria; Translations: [Recurrent and persistent hematuria with unspecified morphologicchanges]Onset: hronic Other acquired deformities (1 source)Spondylolisthesis, lumbosacral region; Translations: [Spondylolisthesis, lumbosacral region]Onset: 78-62-8263IlqdtlhwByqcc aftercare (1 source)Other long-term (current) drug therapy; Translations: [OTH FDC CURRENT DRUG THERAPY]Onset: 72-40-2541MfombdwsCtemk aftercare (1 source)ferry terminal agent (current) use of aspirin; Translations: [POTLINE MONITOR CURRENT USE OF ASPIRIN]Onset: 70-13-8274SmyzrdjxScfft bone disease and musculoskeletal deformities (2 sources)Osteopenia; Translations: [Other specified disorders of bone density and structure, unspecified site]86-08-6547AwzdqixbKwtmg connective tissue disease (20 sources)Artificial knee joint present; Translations: [Presence of unspecified artificial knee joint]Onset: 582141-52-1422RubhdrxJzvyu connective tissue disease (2 sources)History of reverse prosthetic total arthroplasty of left shoulder; Translations: [Presence of left artificial shoulder joint]Onset: 07-04-2023 61-87-4963PfnukxrJsyyw connective tissue disease (2 sources)History of reverse prosthetic total arthroplasty of right shoulder; Translations: [Presence of right artificial shoulder joint]45-04-5716Ssuqals Other connective tissue disease (4 sources)Pain in right foot; Translations: [PAIN IN RIGHT FOOT]Onset: 72-53-4961SzcffwrgChuhj connective tissue disease (3 sources)Pain in right foot; Translations: [Pain in right foot]10-27-2024 EpisodicOther connective tissue disease (10 sources)Other symptoms and signs involving the musculoskeletal system; Translations: [Other musculoskeletalsymptoms referable to limbs]10-27-2024 EpisodicOther connective tissue disease (2 sources)Swelling of right lower limb; Translations: [Other specified soft tissue disorders]22-79-4334ZqxytumiEtvgj nervous system disorders (6 sources)Carpal tunnel syndrome of right wrist; Translations: [Carpal tunnel syndrome, right upper limb]09-07-5325GkddofyXvospwq on above:Problem List clean- up per request of Phys. EHR CmteOther nervous system disorders (2 sources)Carpal tunnel syndrome, right upper limbChronicOther nervous system disorders (1 source)Carpal tunnel syndrome; Translations: [Carpal tunnel syndrome, right upper limb]41-56-8952VilxotwJtezt nervous system disorders (20 sources)Chronic pain syndrome; Translations: [Chronic pain syndrome]Onset: 117760-17-3855EnwcofwOftar nervous system disorders (2 sources)Neuropathy of lower limb; Translations: [Unspecified mononeuropathy of left lower limb]Onset: 074782-26-7250HbbzcstEtsdf nervous system disorders (20 sources)Lesion of ulnar nerve, left upper limb; Translations: [Lesion of ulnar nerve]Onset: 147006-56-7977CrrqmeySsnek nervous system disorders (2 sources)Neuropathy; Translations: [Polyneuropathy, unspecified]12-16-2024 ChronicOther nervous system disorders (1 source)Postoperative pain ; Translations: [Other acute postprocedural pain] 09-23-0093AgeyopzzUwszm nervous system disorders (2 sources)Limping; Translations: [Other abnormalities of gait and mobility] 94-01-4522EyozewfjNpeew nutritional; endocrine; and metabolic disorders (20 sources)Obese class I; Translations: [Obesity, unspecified]Onset: 02-08-2023 47-57-5800EvecjpaQonye nutritional; endocrine; and metabolic disorders (20 sources)Insulin resistance; Translations: [Insulin resistance]Onset: 209667-40-1209RszsnidIudem screening for suspected conditions (not mental disorders or infectious disease) (11 sources)Patient encounter status; Translations: [Encounter for follow-up examination after completed treatment for conditions other than malignant neoplasm]47-67-4617KxyhnnabXtrvr skin disorders (1 source)Localized swelling, mass and lump, right lower limb; Translations: [LOC SWELL MASS LUMP RT LOWER LIMB]Onset: 23-45-0852AyxwkcgfXpxbt skin disorders (4 sources)Dystrophia unguium; Translations: [Nail dystrophy]19-94-7248Rsfpplte Residual codes; unclassified (2 sources)Active advance directive (copy within chart) ; Translations: [Other specified health status]33-39-9914AsrmvpazWfwooafl codes; unclassified (2 sources)Menopause present; Translations: [Asymptomatic menopausal state] 44-93-3410MdhjiqvbDoalkwwp codes; unclassified (2 sources)Cardiovascular event risk; Translations: [Other specified personal risk factors, not elsewhere classified]40-76-2379SqfuhvwiFksnzozqut arthritis and related disease (20 sources)Rheumatoid arthritis of multiple joints; Translations: [Rheumatoid arthritis, unspecified]Onset: 19-17-6018AzzztsjQstqceaxxic; intervertebral disc disorders; other back problems (20 sources)Cervical spondylosis without myelopathy; Translations: [Spondylosis without myelopathy or radiculopathy, cervical region]Onset: 15-00-0616Gwoizgv Spondylosis; intervertebral disc disorders; other back problems (11 sources)Neck pain; Translations: [Cervicalgia]Onset: EpisodicSubstance-related disorders (20 sources)Nicotine dependence, cigarettes, uncomplicated; Translations: [Smoker]Onset: 260457-48-4474ZwklsuaRuilvigf lupus erythematosus and connective tissue disorders (20 sources)Dermatomyositis; Translations: [Dermatopolymyositis, unspecified, organ involvement unspecified]Onset: 786455-43-8669Jdwodsb Past or Other Problems Problem ClassificationProblemDateDocumented DateEpisodic/ChronicDiabetes mellitus with complications (20 sources)Disorder of nervous system due to diabetes mellitus; 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]Onset: 02-08-2023 Resolved: 772456-02-5330LvtsvqnKxlcilzh mellitus without complication (20 sources)Prediabetes; Translations: [Abnormal glucose tolerance test]Onset: 061921-13-9876IupnpgelQshzprkppkkxm symptoms and ill-defined conditions (20 sources)Asymptomatic microscopic hematuria; Translations: [Asymptomatic microscopic hematuria]Onset: 573947-09-1074FiyrgjvcArmk disorders (20 sources)Mood disordersOnset: 02-05-2024 Resolved: 668547-03-3171Bowlbdvsyylmge (20 sources)Primary generalized (osteo)arthritis; Translations: [Arthritis of right acromioclavicular joint]Onset: 08-19-2022 Resolved: 586304-81-3585CbvhelsZrxeo acquired deformities (20 sources)Spondylolisthesis; Translations: [Spondylolisthesis, cervical region]Onset: 161358-74-8495DuummcieKwwlv acquired deformities (20 sources)Leg length inequality; Translations: [Unequal limb length (acquired), unspecified site]Onset: 431299-42-3928XsvvsacbMkpsx aftercare (1 source)ferry terminal agent (current) use of oral hypoglycemic drugs; Translations: [FDC USE ORAL HYPOGLYCEMIC DX]Onset: 29-17-8699JiupplcgIddqj aftercare (20 sources)Polypharmacy ; Translations: [Other ferry terminal agent (current) drug therapy]Onset: 605822-62-9077NudnfxhaNdift connective tissue disease (20 sources)History of total knee arthroplasty; Translations: [Presence of left artificial knee joint]Onset: 02-08-2023 Resolved: 515457-31-9506SgswhdoIijcj connective tissue disease (3 sources)Other specified soft tissue disorders; Translations: [OTHER SPEC SOFT TISSUE DISORDERS]Onset: 71-79-0453ZglcjcogDxrvn connective tissue disease (1 source)Pain in left hand; Translations: [PAIN IN LEFT HAND]Onset: 11-22-2021 EpisodicOther connective tissue disease (1 source)Pain in right hand; Translations: [PAIN IN RIGHT HAND]Onset: 82-32-6508DmvgdhbnZizgh connective tissue disease (20 sources)Osteophyte of bone; Translations: [Enthesopathy, unspecified]Onset: 02-08-2023 Resolved: 787672-43-1891XeslbmhwKvrql connective tissue disease (20 sources)Tear of right rotator cuff; Translations: [Unspecified rotator cuff tear or rupture of right shoulder, not specified as traumatic]Onset: 02-08-2023 Resolved: 037876-76-2460WekxlryzChtwt connective tissue disease (20 sources)Tear of left rotator cuff; Translations: [Unspecified rotator cuff tear or rupture of left shoulder, not specified as traumatic]Onset: 02-08-2023 Resolved: 061599-48-0917AymfusqpGyykr connective tissue disease (20 sources)Pain in left foot; Translations: [Pain in left foot]Onset: 891405-20-8967OrjvkwunLhbas diseases of veins and lymphatics (20 sources)Vascular insufficiency; Translations: [Venous insufficiency (chronic) (peripheral)]Onset: 734270-07-1197KtabdhcuKyykz gastrointestinal disorders (20 sources)Stool DNA-based colorectal cancer screening positive; Translations: [Other fecal abnormalities]Onset: 05-23-2024 Resolved: 206407-32-3324VkogaqbaLxceq nervous system disorders (20 sources)Left leg peripheral neuropathy; Translations: [Unspecified mononeuropathy of left lower limb]Onset: 02-08-2023 Resolved: [id number] non-traumatic joint disorders (1 source)Pain in left wrist; Translations: [PAIN IN LEFT WRIST]Onset: 93-74-5654AqsyvwxfFbkvz non-traumatic joint disorders (1 source)Pain in right wrist; Translations: [PAIN IN RIGHT WRIST]Onset: 39-03-9265RxpqpxiiXpbeo non-traumatic joint disorders (20 sources)Pain in left shoulder; Translations: [Pain in joint, shoulder region]Onset: 07-04-2023 Resolved: 292832-89-0971YlffstfvPwcucixq codes; unclassified (20 sources)History of abdominal hysterectomy; Translations: [Acquired absence of both cervix and uterus]Onset: 082268-06-6441Vstnbvsj Results Test NameValueInterpretationReference RangeFacilityCBC (INCLUDES DIFF/PLT)on 59-62-7472Vtwcglbhx (Bld) [#/Vol]0.052 10*3/uLNormal0-200[facility] Comment on above:Performed By: #### 539, 42187, 1868 #### [facility] [address], [address] [place] [address] Neuropsychiatrist: Edgardo Lake MDBasophils/100 WBC (Bld)0.8 %NormalQuest DiagnosticsComment on above:Performed By: #### 809, 52328, 6399 #### [facility] of [address], [address] [place] [address] Neuropsychiatrist: Edgardo Lake MDEosinophils (Bld) [#/Vol]0.124 10*3/uLNormal 15-500Quest DiagnosticsComment on above:Performed By: #### 809, 88350, 6399 #### [facility] of [address], [address] [place] [address] Neuropsychiatrist: Edgardo NGosinophils/100 WBC (Bld)1.9 %NormalQuest DiagnosticsComment on above:Performed By: #### 809, 29423, 6399 #### [facility] of [place] [address] Neuropsychiatrist: Edgardo Lake MDErythrocyte distribution width (RBC) [Ratio] 16.7 %High11.0-15.0Quest DiagnosticsComment on above:Performed By: #### 809, 29993, 6399 #### [facility] of [place] [address] Neuropsychiatrist: Edgardo Lake MDHematocrit (Bld) [Volume fraction]35.1 %Normal 35.0-45.0Quest DiagnosticsComment on above:Performed By: #### 809, 90328, 6399 #### [facility] of [place] [address] Neuropsychiatrist: Edgardo Lake MDHemoglobin (Bld) [Mass/Vol]11.3 g/dLLow 11.7-15.5Quest DiagnosticsComment on above:Performed By: #### 809, 23057, 6399 #### [facility] of [address], [address] [place] [address] Neuropsychiatrist: Edgardo Lake MDLymphocytes (Bld) [#/Vol]1.905 10*3/uLNormal 850-3900Quest DiagnosticsComment on above:Performed By: #### 809, 39413, 6399 #### [facility] of [address], [address] [place] [address] Neuropsychiatrist: Edgardo Lake MDLymphocytes/100 WBC (Bld)29.3 %NormalQuest DiagnosticsComment on above:Performed By: #### 809, 66968, 6399 #### [facility] of [address], [address] [place] [address] Neuropsychiatrist: Edgardo Lake MDMCH (RBC) [Entitic mass]28.1 ahAejdhg32.0-33.0 [facility] DiagnosticsComment on above:Performed By: #### 809, 73072, 6399 #### [facility] of [address], [address] [place] [address] Neuropsychiatrist: Edgardo Lake MDMCHC (RBC) [Mass/Vol]32.2 g/oSXhvbwp81.0-36.0 [facility] DiagnosticsComment on above:Result Comment: For adults, a slight decrease in the calculated MCHC value (in the range of 30 to 32 g/dL) is most likely not clinically significant; however, it should be interpreted with caution in correlation with other red cell parameters and the patient's clinical condition.Performed By: #### 809, 71386, 6399 #### [facility] of [address], [address] [place] [address] Neuropsychiatrist: Edgardo Lake MDMCV (RBC) [Entitic vol]87.3 dSHmzxzb67.0-100.0 [facility]osticsComment on above:Performed By: #### 809, 71813, 6399 #### [facility] of [address], [address] [place] [address] Neuropsychiatrist: Edgardo Lake MDMonocytes (Bld) [#/Vol]0.26 10*3/uLNormal 200-950Quest DiagnosticsComment on above:Performed By: #### 809, 57596, 6399 #### [facility] of [address], [address] [place] [address] Neuropsychiatrist: Edgardo Lake MDMonocytes/100 WBC (Bld)4.0 %NormalQuest DiagnosticsComment on above:Performed By: #### 809, 85069, 6399 #### [facility] of [place] [address], [address] [place] [address] Neuropsychiatrist: Edgardo Lake MDNeutrophils (Bld) [#/Vol]4.16 10*3/uLNormal 1500-7800Quest DiagnosticsComment on above:Performed By: #### 809, 80441, 6399 #### [facility] of [address], [address] [place] [address] Neuropsychiatrist: Edgardo Lake MDNeutrophils/100 WBC (Bld)64 %NormalQuest DiagnosticsComment on above:Performed By: #### 809, 28549, 6399 #### [facility] of [address], [address] [place] [address] Neuropsychiatrist: Edgardo Lake MDPlatelet mean volume (Bld) [Entitic vol]8.8 fL Normal7.5-12.5Quest DiagnosticsComment on above:Performed By: #### 809, 95755, 6399 #### [facility] of [address], [address] [place] [address] Neuropsychiatrist: Edgardo Lake MDPlatelets (Bld) [#/Vol]385 10*3/uLNormal 140-400Quest DiagnosticsComment on above:Performed By: #### 809, 98488, 6399 #### [facility] of [address], [address] [place] [address] Neuropsychiatrist: Edgardo Lake MDRBC (Bld) [#/Vol]4.02 10*6/uLNormal3.80-5.10 [facility]osticsComment on above:Performed By: #### 809, 07669, 6399 #### [facility] of [address], [address] [place] [address] Neuropsychiatrist: Edgardo Lake MDWBC (Bld) [#/Vol]6.5 10*3/uLNormal3.8-10.8 [facility]osticsComment on above:Performed By: #### 809, 75891, 6399 #### [facility] [address] [facility], [address] [place] [address] Neuropsychiatrist: Edgardo Lake [facility] PUR[facility]LLBC W Auto Differential panel (Bld)on 58-59-9606Nujryhbyj (Bld) [#/Vol]52 10*3/uLNOMS HealthcareBasophils/100 WBC (Bld)0.8 %NOMS HealthcareEosinophils (Bld) [#/Vol]124 10*3/uLNOMS Healthcare Eosinophils/100 WBC (Bld)1.9 %NOMS HealthcareErythrocyte distribution width (RBC) [Ratio]16.7 %High11.0 - 15.0 %NOM HealthcareHematocrit (Bld) [Volume fraction]35.1 %35.0 - 45.0 %NOM HealthcareHemoglobin (Bld) [Mass/Vol]11.3 g/dL Low11.7 - 15.5 g/dLSAN JUAN HOSPITAL HealthcareLymphocytes (Bld) [#/Vol]1905 10*3/uLNOMS HealthcareLymphocytes/100 WBC (Bld)29.3 %[facility] CenterMCH (RBC) [Entitic mass] 28.1 pg27.0 - 33.[address]NOMosaic Life Care at [address] JosephHC (RBC) [Mass/Vol]32.2 g/dL32.0 - 36.0 g/dLNOLA HealthcareComment on above:For adults, a slight decrease in the calculated MCHC value (in the range of 30 to 32 g/dL) is most likely not clinically significant; however, it should be interpreted with caution in correlation with other red cell parameters and the patient's clinical condition. MCV (RBC) [Entitic vol]87.3 fL80.0 - 100.0 fLNOLA HealthcareMonocytes (Bld) [#/Vol]260 10*3/uLNOMS HealthcareMonocytes/100 WBC (Bld)4 %[facility] Neutrophils (Bld) [#/Vol]4160 10*3/uLNOMS HealthcareNeutrophils/100 WBC (Bld)64 %NOMS HealthcarePlatelet mean volume (Bld) [Entitic vol]8.8 fL7.5 - 12.5 fLNOLA HealthcarePlatelets (Bld) [#/Vol]385 10*3/uLNOLA HealthcareRBC (Bld) [#/Vol]4.02 10*6/uLSAN JUAN HOSPITAL HealthcareWBC (Bld) [#/Vol]6.5 10*3/[facility] HealthcareCOMPREHENSIVE METABOLIC PANELon 13-07-9132Othpgmp [Mass/Vol]3.7 g/dLNormal3.6-5.1Quest DiagnosticsComment on above:Performed By: #### 809, 43129, 6399 #### [facility] of [place] [address] Neuropsychiatrist: Edgardo Lake MDAlbumin/Globulin [Mass ratio]1.4 {ratio}Normal 1.0-2.5Quest DiagnosticsComment on above:Performed By: #### 809, 05299, 6399 #### [facility] of [place] [address] Neuropsychiatrist: Edgardo Lake MDALP [Catalytic activity/Vol]124 U/LNormal 37-153Quest DiagnosticsComment on above:Performed By: #### 809, 55409, 6399 #### [facility] of [place] [address] Neuropsychiatrist: Edgardo Lake MDALT [Catalytic activity/Vol]8 U/LNormal6-29 [facility]osticsComment on above:Performed By: #### 809, 27618, 6399 #### [facility] of [place] [address] Neuropsychiatrist: Edgardo Lake MDAST [Catalytic activity/Vol]14 U/WJguqic19-72 [facility]osticsComment on above:Performed By: #### 809, 64540, 6399 #### [facility] of [address] [address] Neuropsychiatrist: Edgardo Lake MDBilirubin [Mass/Vol]0.4 mg/dLNormal0.2-1.2 [facility]osticsComment on above:Performed By: #### 809, 85213, 6399 #### [facility] of [address], [address] [place] [address] Neuropsychiatrist: Edgardo Lake MDBUN/CREATININE RATIOSEE NOTE:Normal6-22Quest DiagnosticsComment on above:Result Comment: Not Reported: BUN and Creatinine are within reference range.Performed By: #### 809, 66381, 6399 #### [facility] of [address], [address] [place] [address] Neuropsychiatrist: Edgardo Lake MDCalcium [Mass/Vol]9.0 mg/dLNormal8.6-10.4Quest DiagnosticsComment on above:Performed By: #### 809, 01695, 6399 #### [facility] of [address], [address] [place] [address] Neuropsychiatrist: Edgardo Lake MDChloride [Moles/Vol]99 mmol/UXzijsz85-889Pnzhl DiagnosticsComment on above:Performed By: #### 809, 92786, 6399 #### [facility] of [place] [address] Neuropsychiatrist: Edgardo Lake MDCO2 [Moles/Vol]28 mmol/BQfgqat92-93Drwzv DiagnosticsComment on above:Performed By: #### 809, 42724, 6399 #### [facility] of [address], [address] [place] [address] Neuropsychiatrist: Edgardo LEALreatinine [Mass/Vol]0.62 mg/dLNormal0.60-1.00 [facility]osticsComment on above:Performed By: #### 809, 76490, 6399 #### [facility] of [address], [address] [place] [address] Neuropsychiatrist: Edgardo Lake MDGFR/1.73 sq M.predicted among non-blacks MDRD (S/P/Bld) [Vol rate/Area]94 mL/min/{1.73_m2}Normal> OR = 60[facility] Comment on above:Performed By: #### 809, 28541, 6399 #### [facility] [address], [address] [place] [address] Neuropsychiatrist: Edgardo Lake MDGlobulin (S) [Mass/Vol]2.6 g/dLNormal1.9-3.7 [facility]osticsComment on above:Performed By: #### 809, 95693, 6399 #### [facility] [place] [address] Neuropsychiatrist: Edgardo Lake MDGlucose [Mass/Vol]128 mg/uWSdxd73-37Wcymn DiagnosticsComment on above:Result Comment: Fasting reference interval For someone without known diabetes, a glucose value >125 mg/dL indicates that they may have diabetes and this should be confirmed with a follow-up test.Performed By: #### 809, 62592, 6399 #### [facility] [place] [address] Neuropsychiatrist: Edgardo Lake MDPotassium [Moles/Vol]3.9 mmol/LNormal3.5-5.3 [facility]osticsComment on above:Performed By: #### 809, 69426, 6099 #### [facility] [place] [address] Neuropsychiatrist: Edgardo Lake MDProtein [Mass/Vol]6.3 g/dLNormal6.1-8.1Quest DiagnosticsComment on above:Performed By: #### 809, 23304, 6999 #### [facility] [place] [address] Neuropsychiatrist: Edgardo Lake MDSodium [Moles/Vol]135 mmol/USbaony280-345Oufju DiagnosticsComment on above:Performed By: #### 809, 50175, 6399 #### [facility] [address], [address] [place] [address] Neuropsychiatrist: Edgardo Lake MDUrea nitrogen [Mass/Vol]15 mg/dLNormal7-25 [facility]osticsComment on above:Performed By: #### 809, 34543, 6399 #### [facility] [address], [address] [place] [address] Neuropsychiatrist: Edgardo Lake [facility] PURCELLomprehensive metabolic panelon 05-27-2025 Albumin [Mass/Vol]3.7 g/dL3.6 - 5.1 g/dLNOLA HealthcareAlbumin/Globulin [Mass ratio]1.4 {ratio}NOMS HealthcareALP [Catalytic activity/Vol]124 [...] (S/P/Bld) [Vol rate/Area]94 mL/min/{1.73_m2}> OR = 60 mL/min/1.77g6ZCHA HealthcareGlobulin (S) [Mass/Vol]2.6 g/dLNOMS HealthcareGlucose [Mass/Vol]128 mg/uYPzvp65 - 99 mg/dLNOMS HealthcareComment on above: Fasting reference interval For someone without known diabetes, a glucose value >125 mg/dL indicates that they may have diabetes and this should be confirmed with a follow-up test. Potassium [Moles/Vol]3.9 mmol/L3.5 - 5.3 mmol/LNOMS HealthcareProtein [Mass/Vol] 6.3 g/dL6.1 - 8.1 g/dLNOLA HealthcareSodium [Moles/Vol]135 mmol/L135 - 146 mmol/LNOMS HealthcareUrea nitrogen [Mass/Vol]15 mg/dL7 - 25 mg/dLNOMS Healthcare Urea nitrogen/Creatinine [Mass ratio]SEE NOTE:NOMS HealthcareComment on above: Not Reported: BUN and Creatinine are within reference range. No Panel Informationon 30-28-0858Brilbwtzqntbqx and review of laboratory results AbnormalNOLA HealthcarePerforming Organization Information Site ID: QPT Name: [facility] Address: [address] [place] [address], [address] [place] [address] Director: Edgardo Lake MDCedar County Memorial Hospital HealthcareSED RATE BY MODIFIED WESTERGRENon 94-32-2890CJR RATE BY MODIFIED PGZGCAMGAU31 mm/hNormal< OR = 30 [facility] DiagnosticsComment on above:Performed By: #### 809, 35307, 6399 #### [facility] [address], [address] [place], [place] [address] Neuropsychiatrist: Edgardo Lake MDSedimentation rate, automatedon 14-98-9001YJQ (Bld) [Velocity]22 mm/h< OR = 30NOLA HealthcareX-ray reportOrdered By: Guido Salcedo on 75-69-1621Brilw reportLAKEHEALTH TRIPOINT [place] [address] XRay Report Signed Patient: Disha De La Garza MR#: [id number] : 1950 Acct:[id number] Age/Sex: 75 / F ADM Date: 5 Loc: XD Room: Type: [facility] Attending Dr: Willie Garcia MD Copies to: [...] Salcedo DO 04/09/25 164 Signed By: 04/09/251651 [facility] Hospitaltudy reportLAKEHEALTH TRIPOINT [facility] Main [place] [address] [place] [address] XRay Report Signed Patient: Disha De La Garza MR#: [id number] : 1950 Acct:[id number] Age/Sex: 75 / F ADM Date: 5 Loc: XD Room: Type: [facility] Attending Dr: Willie Garcia MD Copies to: [...] Medical CenterXR lumbar spine 6V w bendingon 42-61-5885CR lumbar spine 6V w bendingLAKEHEALTH TRIPOINT MEDICAL [facility] Main [place] [address] [place] [address] XRay Report Signed Patient: Disha De La Garza MR#: [id number] : 1950 Acct:[id number] Age/Sex: 75 / F ADM Date: 04/09/25 [...] Salcedo M.D. 04/09/2025 4:52 PM Dictation Location: [place] [address] Transcribed By: [facility] 04/09/25 1652 Dictated By: Guido Salcedo DO 04/09/25 1649 Signed By: 04/09/25 [facility] Physician GroupXR pelvis 1-2Von 99-90-5202YR pelvis 1-2VLAKEHEALTH TRIPOINT MEDICAL [facility] Main [place] [address] [place] [address] XRay Report Signed Patient: Disha De La Garza MR#: [id number] : 1950 Acct:[id number] Age/Sex: 75 / F ADM Date: 04/09/25 [...] Salcedo M.D. 04/09/2025 3:15 PM Dictation Location: [place] [address] Transcribed By: [facility] 04/09/25 151 Dictated By: Guido Salcedo DO 04/09/251512 Signed By: 04/09/25 [facility] TOMOSYNTHESIS SCREENING BIon 68-42-6946[place]qs[place] [address] Mammography Report Signed Patient: DISHA DE LA GARZA MR#: [id number] : 1950 Acct:[id number] Age/Sex: 74 / F ADM Date: 02/27/25 Loc: MAMMO Attending Dr: WILL TIM Ordering Physician: WILL TIM Results: Date of Service: 02/27/25 Follow Up: Procedure(s): MM tomosynthesis screening BI Accession Number(s): [id number] cc: WILL TIM Patient Name: DISHA DE LA GARZA MR#: [id number] : 1950 Exam Date: 02/27/2025 Ordering Doctor: [...] throat cancer at age 77. LOCATION: [facility] BREAST COMPOSITION: The breasts are almost [...] Signed By: 02/27/25 1438 DD/ 1437 TD/TT: Emissions Inspector:TBHRadiology, Radiologist, - 02/27/2025 [place] [address] Mammography Report Signed Patient: DISHA DE LA GARZA MR#: [id number] : 1950 Acct:[id number] Age/Sex: 74 / F ADM Date: 02/27/25 Loc: MAMMO Attending Dr: WILL TIM Ordering Physician: WILL TIM Results: Date of Service: 02/27/25 Follow Up: Procedure(s): MM tomosynthesis screening BI Accession Number(s): [id number] cc: WILL TIM Patient Name: DISHA DE LA GARZA MR#: [id number] : 1950 Exam Date: 02/27/2025 Ordering Doctor: [...] throat cancer at age 77. LOCATION: [facility] BREAST COMPOSITION: The breasts are almost [...] Signed By: 02/27/25 1438 DD/ 36 TD/TT: Emissions Inspector: LETI [facility] HospitalRadiology Study observation (narrative)[facility] TOMOSYNTHESIS SCREENING BIOrdered By: Radiologist Radiology on 00-59-2233KJKB [employer] Work Phone: LUMBAR SPINE WO CONon 17-43-3973Oex[place] [address] Magnetic Resonance Report Signed Patient: DISHA DE LA GARZA MR#: [id number] : 1950 Acct:[id number] Age/Sex: 74 / F ADM Date: 02/27/25 Loc: MRI Attending Dr: Quin Hernandez NP Ordering Physician: Quin Hernandez NP Date of Service: 02/27/25 Procedure(s): MR lumbar spine wo con Accession Number(s): [id number] cc: Quin Hernandez NP; WILL TIM [place] [address] Patient Name: DISHA DE LA GARZA MRN: [facility]:[id number] date: 1950 Sex: F Assigned Patient Location: MRI Current Patient Location: MRI Accession/Order Number: [id number] Exam Date: 02/27/2025 15:30 Report Date: 02/27/2025 [...] Salcedo M.D. 02/27/2025 3:36 PM Dictation Location: [place] [address] Electronically authenticated by: [id number] Y Date: 02/27/2025 15:36 Dictated By: Guido Salcedo D.O. Signed By: 02/27/25 1539 DD/ 1536 TD/TT: Emissions Inspector:TBHRadiology, Radiologist, MD - 02/27/2025 [place] [address] Magnetic Resonance Report Signed Patient: DISHA DE LA GARZA MR#: [id number] : 1950 Acct:[id number] Age/Sex: 74 / F ADM Date: 02/27/25 Loc: MRI Attending Dr: Quin Hernandez NP Ordering Physician: Quin Hernandez NP Date of Service: 02/27/25 Procedure(s): MR lumbar spine wo con Accession Number(s): [id number] cc: Quin Hernandez NP; WILL TIM [place] [address] Patient Name: DISHA DE LA GARZA MRN: [facility]:[id number] date: 1950 Sex: F Assigned Patient Location: MRI Current Patient Location: MRI Accession/Order Number: [id number] Exam Date: 02/27/2025 15:30 Report Date: 02/27/2025 [...] Salcedo M.D. 02/27/2025 3:36 PM Dictation Location: [place] [address] Electronically authenticated by: [id number] Y Date: 02/27/2025 15:36 Dictated By: Guido Salcedo D.O. Signed By: 02/27/25 1539 DD/ 1536 TD/TT: Emissions Inspector: LETI HealthcareRadiology Study observation (narrative)[facility] CenterMR LUMBAR SPINE WO CONOrdered By: Radiologist Radiology on 57-69-4450UYVL [employer] Work Phone: aLBUMIN, RANDOM URINE W/CREATININEon 02-14-2025 ALBUMIN, URINE3.7 mg/dLNormalSee Note:[facility] DiagnosticsComment on above:Result Comment: Reference Range: Reference Range Not establishedPerformed By: #### 6517, 496 #### [facility] [address], [address] [place] [address] Neuropsychiatrist: Edgardo Lake MDALBUMIN/CREATININE RATIO, RANDOM GWQQX717 mg/g creatHigh<30Quest DiagnosticsComment on above:Result Comment: The [...] By: #### 6517, 496 #### [facility] [address], [address] [place] [address] Neuropsychiatrist: Edgardo Lake MDCreatinine (U) [Mass/Vol]24 mg/sUKdmpsw80-209 [facility] DiagnosticsComment on above:Performed By: #### 6517, 496 #### [facility] [address], [address] [place] [address] Neuropsychiatrist: Edgardo Lake MDHEMOGLOBIN A1con 92-66-6188IsC5d (Bld) [Mass fraction]5.6 %Normal<5.7Quest DiagnosticsComment on above:Result [...] By: #### 6517, 496 #### [facility] [address], [address] [place] [address] Neuropsychiatrist: Edgardo Lake MDLaboratory - Hematology and Cell countson 35-54-3523QhV6f (Bld) [Mass fraction]5.6 %NINF - 5.7 %NOM [...] Care in Diabetes(ADA). Microalbumin/Creatinine ratio panel (U)on 46-01-2037Zzbktol DL <= 20 mg/L (U) [Mass/Vol]3.7 mg/dLSee Note:[facility] HealthcareComment on above:Reference Range: Reference Range [...] category. Creatinine (U) [Mass/Vol]24 mg/dL20 - 275 mg/dLNOLA HealthcareInterpretation and review of laboratory resultsAbTidelands Georgetown Memorial Hospital Informationon 95-22-6283Cfymgnhphy Organization Information Site ID: QPT Name: [facility] Address: [address] [place] [address], [address] [place] [address] Director: Edgardo Lake MDDorothea Dix HospitalCBC (INCLUDES DIFF/PLT) on 83-06-7016YZBRQOVF BAND NEUTROPHILSNormalQuest DiagnosticsComment on above: Performed By: #### 6399, 68095, 809 #### [facility] of [address], [address] [place] [address] Neuropsychiatrist: Edgardo DAVIS BASOPHILSNormalQuest Diagnostics Comment on above:Performed By: #### 6399, 62818, 809 #### [facility] of [address], [address] [place] [address] Neuropsychiatrist: Edgardo DAVIS BLASTSNormalQuest DiagnosticsComment on above:Performed By: #### 6399, 44222, 809 #### [facility] of [address], [address] [place] [address] Neuropsychiatrist: Edgardo DAVIS EOSINOPHILSNormalQuest Diagnostics Comment on above:Performed By: #### 6399, 50325, 809 #### [facility] of [address], [address] [place] [address] Neuropsychiatrist: Edgardo TALLEYOLCINTHYA LYMPHOCYTESNormalQuest Diagnostics Comment on above:Performed By: #### 6399, 59357, 809 #### [facility] of [address], [address] [place] [address] Neuropsychiatrist: Edgardo DAVIS METAMYELOCYTESNormalQuest [facility] Comment on above:Performed By: #### 6399, 11347, 809 #### [facility] of [address], [address] [place] [address] Neuropsychiatrist: Edgardo DAVIS MONOCYTESNormal[facility] Comment on above:Performed By: #### 6399, 33013, 809 #### [facility] of [place] [address], [address] [place] [address] Neuropsychiatrist: Edgardo DAVIS MYELOCYTESNormalQuest [facility]ostics Comment on above:Performed By: #### 6399, 28332, 809 #### [facility] of [place] [address] [address] , [address] [place] [address] Neuropsychiatrist: Edgardo DAVIS NEUTROPHILSNormalQuest Diagnostics Comment on above:Performed By: #### 6399, 28330, 809 #### [facility] of [address] , [address] [place] [address] Neuropsychiatrist: Edgardo DAVIS NUCLEATED RBCNormalQuest Diagnostics Comment on above:Performed By: #### 6399, 63968, 809 #### [facility] of [place] [address] , [address] [place] [address] Neuropsychiatrist: Edgardo DAVIS PROMYELOCYTESNormalQuest [facility] Comment on above:Performed By: #### 6399, 59020, 809 #### [facility] of [address] [place] [address] Neuropsychiatrist: Edgardo WASHINGTON NEUTROPHILSNormalQuest DiagnosticsComment on above:Performed By: #### 6399, 78388, 809 #### [facility] of [place] [address] , [address] [place] [address] Neuropsychiatrist: Edgardo Lake MDBASOPHILSNormalQuest DiagnosticsComment on above:Performed By: #### 6399, 19729, 809 #### [facility] of [place] [address] [place] [address] Neuropsychiatrist: Edgardo Lake MDBLASTSNormalQuest DiagnosticsComment on above: Performed By: #### 6399, 18517, 809 #### [facility] of [place] [address], [address] [place] [address] Neuropsychiatrist: Edgardo Lake MDCOMMENT(S)NormalQuest DiagnosticsComment on above:Performed By: #### 6399, 98880, 809 #### [facility] of [place] [address] [address] , [address] [place] [address] Neuropsychiatrist: Edgardo Lake MDEOSINOPHILSNormalQuest DiagnosticsComment on above:Performed By: #### 6399, 04169, 809 #### [facility] of [place] [address], [address] [place] [address] Neuropsychiatrist: Edgardo Lake MDHEMATOCRITNormalQuest DiagnosticsComment on above:Performed By: #### 6399, 73390, 809 #### [facility] of [place] [address] , [address] [place] [address] Neuropsychiatrist: Edgardo Lake MDHEMOGLOBINNormalQuest DiagnosticsComment on above:Performed By: #### 6399, 30017, 809 #### [facility] of [place] [address], [address] [place] [address] Neuropsychiatrist: Edgardo Lake MDLYMPHOCYTESNormalQuest DiagnosticsComment on above:Performed By: #### 6399, 56941, 809 #### [facility] of [place] [address], [address] [place] [address] Neuropsychiatrist: Edgardo Lake MDMCHNormalQuest DiagnosticsComment on above: Performed By: #### 6399, 98632, 809 #### [facility] [place] [address], [address] [place] [address] Neuropsychiatrist: Edgardo Lake MDMCHCNormalQuest DiagnosticsComment on above: Performed By: #### 6399, 87888, 809 #### [facility] [place] [address], [address] [place] [address] Neuropsychiatrist: Edgardo Lake MDMCVNormalQuest DiagnosticsComment on above: Performed By: #### 6399, 57744, 809 #### [facility] [address], [address] [place] [address] Neuropsychiatrist: Edgardo ARAMBULAETAMYELOCYTESNormalQuest DiagnosticsComment on above:Performed By: #### 6399, 46957, 809 #### [facility] [address], [address] [place] [address] Neuropsychiatrist: Edgardo ARAMBULAONOCYTESNormalQuest DiagnosticsComment on above:Performed By: #### 6399, 01564, 809 #### [facility] [place] [address], [address] [place] [address] Neuropsychiatrist: Edgardo Lake MDMPVNormalQuest DiagnosticsComment on above: Performed By: #### 6399, 15484, 809 #### [facility] [place] [address], [address] [place] [address] Neuropsychiatrist: Edgardo Lake MDMYELOCYTESNormalQuest DiagnosticsComment on above:Performed By: #### 6399, 87070, 809 #### [facility] [place] [address], [address] [place] [address] Neuropsychiatrist: Edgardo Lake MDNEUTROPHILSNormalQuest DiagnosticsComment on above:Performed By: #### 6399, 13695, 809 #### [facility] [place] [address], [address] [place] [address] Neuropsychiatrist: Edgardo Lake MDNUCLEATED RBCNormalQuest DiagnosticsComment on above:Performed By: #### 6399, 61131, 809 #### [facility] [place] [address], [address] [place] [address] Neuropsychiatrist: Edgardo Lake MDPLATELET COUNTNormalQuest DiagnosticsComment on above:Performed By: #### 6399, 35021, 809 #### [facility] [place] [address], [address] [place] [address] Neuropsychiatrist: Edgardo Lake MDPROMYELOCYTESNormalQuest DiagnosticsComment on above:Performed By: #### 6399, 53220, 809 #### [facility] [place] [address] Neuropsychiatrist: Edgardo Lake MDRDWNormalQuest DiagnosticsComment on above: Performed By: #### 6399, 62234, 809 #### [facility] [place] [address] Neuropsychiatrist: Edgardo Lake MDREACTIVE LYMPHOCYTESNormalQuest Diagnostics Comment on above:Performed By: #### 6399, 03422, 809 #### [facility] [place] [address] Neuropsychiatrist: Edgardo PADGETTED BLOOD CELL COUNTNormalQuest Diagnostics Comment on above:Performed By: #### 6399, 94803, 809 #### [facility] [place] [address] Neuropsychiatrist: Edgardo Lake MDWHITE BLOOD CELL COUNTNormalQuest Diagnostics Comment on above:Performed By: #### 6399, 11150, 809 #### [facility] [place] [address] Neuropsychiatrist: Edgardo Lake MDCOMPREHENSIVE METABOLIC PANELon 01-09-2025 Albumin [Mass/Vol]3.9 g/dLNormal3.6-5.1Quest DiagnosticsComment on above: Performed By: #### 6399, 25731, 809 #### [facility] [place] [address] Neuropsychiatrist: Edgardo Lake MDAlbumin/Globulin [Mass ratio]1.6 {ratio}Normal 1.0-2.5Quest DiagnosticsComment on above:Performed By: #### 6399, 84398, 809 #### [facility] [place] [address] Neuropsychiatrist: Edgardo Lake MDALP [Catalytic activity/Vol]140 U/LNormal 37-153Quest DiagnosticsComment on above:Performed By: #### 6399, 69909, 809 #### [facility] [place] [address] Neuropsychiatrist: Edgardo Lake MDALT [Catalytic activity/Vol]8 U/LNormal6-29 [facility] DiagnosticsComment on above:Performed By: #### 6399, 57495, 809 #### [facility] [place] [address] Neuropsychiatrist: Edgardo Lake MDAST [Catalytic activity/Vol]13 U/PPiunwf92-88 [facility] DiagnosticsComment on above:Performed By: #### 6399, 04031, 809 #### [facility] [place] [address] Neuropsychiatrist: Edgardo Lake MDBilirubin [Mass/Vol]0.4 mg/dLNormal0.2-1.2 [facility] DiagnosticsComment on above:Performed By: #### 6399, 47487, 809 #### [facility] [place] [address] Neuropsychiatrist: Edgardo Lake MDCalcium [Mass/Vol]9.1 mg/dLNormal8.6-10.4Quest DiagnosticsComment on above:Performed By: #### 6399, 98648, 809 #### [facility] [place] [address] Neuropsychiatrist: Edgardo Lake MDChloride [Moles/Vol]103 mmol/MGlmdpn12-017 [facility] DiagnosticsComment on above:Performed By: #### 6399, 45588, 809 #### [facility] [place] [address] Neuropsychiatrist: Edgardo Lake MDCO2 [Moles/Vol]26 mmol/QPtglhg08-26Nhufu DiagnosticsComment on above:Performed By: #### 6399, 24991, 809 #### [facility] [place] [address] Neuropsychiatrist: Edgardo LEALreatinine [Mass/Vol]0.56 mg/dLLow0.60-1.00 [facility] DiagnosticsComment on above:Performed By: #### 6399, 83803, 809 #### [facility] [place] [address] Neuropsychiatrist: Edgardo Lake MDGFR/1.73 sq M.predicted among non-blacks MDRD (S/P/Bld) [Vol rate/Area]97 mL/min/{1.73_m2}Normal> OR = 60[facility] Comment on above:Performed By: #### 6399, 51482, 809 #### [facility] [place] [address] Neuropsychiatrist: Edgardo Lake MDGlobulin (S) [Mass/Vol]2.5 g/dLNormal1.9-3.7 [facility] DiagnosticsComment on above:Performed By: #### 6399, 08581, 809 #### [facility] [place] [address] Neuropsychiatrist: Edgardo Lake MDGlucose [Mass/Vol]109 mg/bNLbsb04-71Zxfwx DiagnosticsComment on above:Result Comment: Fasting reference interval For someone without known diabetes, a glucose value between 100 and 125 mg/dL is consistent with prediabetes and should be confirmed with a follow-up test.Performed By: #### 6399, 53771, 809 #### [facility] [place] [address] Neuropsychiatrist: Edgardo Lake MDPotassium [Moles/Vol]4.0 mmol/LNormal3.5-5.3 [facility] DiagnosticsComment on above:Performed By: #### 6399, 54297, 809 #### [facility] [address] [place] [address] Neuropsychiatrist: Edgardo Lake MDProtein [Mass/Vol]6.4 g/dLNormal6.1-8.1Quest DiagnosticsComment on above:Performed By: #### 6399, 86914, 809 #### [facility] of [address], [address] [place] [address] Neuropsychiatrist: Edgardo Lake MDSodium [Moles/Vol]138 mmol/NFfbcnf075-541Ttoct DiagnosticsComment on above:Performed By: #### 6399, 59344, 809 #### [facility] [place] [address] Neuropsychiatrist: Edgardo Lake MDUrea nitrogen [Mass/Vol]12 mg/dLNormal7-25 [facility] DiagnosticsComment on above:Performed By: #### 6399, 08453, 809 #### [facility] of [address], [address] [place] [address] Neuropsychiatrist: Edgardo Lake MDUrea nitrogen/Creatinine [Mass ratio]21 mg/mg Normal6-22Quest DiagnosticsComment on above:Performed By: #### 6399, 13256, 809 #### [facility] [place] [address] Neuropsychiatrist: Edgardo Lake MDSED RATE BY MODIFIED WESTERGRENon 01-09-2025 SED RATE BY MODIFIED WESTERGRENNormalQuest DiagnosticsComment on above:Performed By: #### 6399, 51749, 809 #### [facility] [place] [address] Neuropsychiatrist: Edgardo Lake MDC-REACTIVE PROTEINon 41-35-6627AXS [Mass/Vol] 4.5 mg/LNormal<8.0Quest DiagnosticsComment on above:Result Comment: Your request to have a duplicate copy faxed has been acknowledged. Queued to: [id number] By: #### 809, 30555, 6399 #### [facility] [address], [address] Neuropsychiatrist: Edgardo Lake MDCBC (INCLUDES DIFF/PLT)on 19-78-4438Fipzidvtk (Bld) [#/Vol]0.033 10*3/uLNormal0-200Quest DiagnosticsComment on above:Performed By: #### 5463, 25481, 6399 #### [facility] [address] [place] [address] Neuropsychiatrist: Caroline Howard #### 4420 #### [facility] [place] [address] , [address] [place], [place] [id number] Neuropsychiatrist: Edgardo Lake MDBasophils/100 WBC (Bld)0.3 %NormalQuest DiagnosticsComment on above:Performed By: #### 5463, 28273, 6399 #### [facility] [address] [place], [place] [id number] Neuropsychiatrist: Caroline Howard #### 4420 #### [facility] [place] [address] , [address] [place] [address] Neuropsychiatrist: Edgardo Lake MDEosinophils (Bld) [#/Vol]0.231 10*3/uLNormal 15-500Quest DiagnosticsComment on above:Performed By: #### 5463, 33621, 6399 #### [facility] [address] [place] [address] Neuropsychiatrist: Caroline Howard #### 4420 #### [facility] [place] [address] , [address] [place], [place] [id number] Neuropsychiatrist: Edgardo Lake MDEosinophils/100 WBC (Bld)2.1 %NormalQuest DiagnosticsComment on above:Performed By: #### 5463, 06446, 6399 #### [facility] [address] [place] [address] Neuropsychiatrist: Caroline Howard #### 4420 #### [facility] [address], [address] [place] [address] Neuropsychiatrist: Edgardo Lake MDErythrocyte distribution width (RBC) [Ratio] 17.1 %High11.0-15.0Quest DiagnosticsComment on above:Performed By: #### 5463, 65982, 6399 #### [facility] [address] [place], [place] [address] Neuropsychiatrist: Caroline Howard #### 4420 #### [facility] [address], [address] [place] [address] Neuropsychiatrist: Edgardo Lake MDHematocrit (Bld) [Volume fraction]38.0 %Normal 35.0-45.0Quest DiagnosticsComment on above:Performed By: #### 5463, 50565, 6399 #### [facility] [address] [place] [address] Neuropsychiatrist: Caroline Howard #### 4420 #### [facility] [address], [address] [place] [address] Neuropsychiatrist: Edgardo Lake MDHemoglobin (Bld) [Mass/Vol]12.5 g/dLNormal 11.7-15.5Quest DiagnosticsComment on above:Performed By: #### 5463, 20006, 6399 #### [facility] [address] [place] [address] Neuropsychiatrist: Caroline Howard #### 4420 #### [facility] [address], [address] [place] [address] Neuropsychiatrist: Edgardo Lake MDLymphocytes (Bld) [#/Vol]2.255 10*3/uLNormal 850-3900Quest DiagnosticsComment on above:Performed By: #### 5463, 46106, 6399 #### [facility] [address] [place] [address] Neuropsychiatrist: Caroline Howard #### 4420 #### [facility] [address], [address] [place], [place] [id number] Neuropsychiatrist: Edgardo Lake MDLymphocytes/100 WBC (Bld)20.5 %NormalQuest DiagnosticsComment on above:Performed By: #### 5463, 87389, 6399 #### [place] [address] Neuropsychiatrist: Caroline Howard #### 4420 #### [facility] [address], [address] [place], [place] [id number] Neuropsychiatrist: Edgardo Lake MDMCH (RBC) [Entitic mass]29.2 jaEbflkg14.0-33.0 [facility] DiagnosticsComment on above:Performed By: #### 5463, 89321, 6399 #### [place] [address] Neuropsychiatrist: Caroline Howard #### 4420 #### [facility] [address], [address] [place] [address] Neuropsychiatrist: Edgardo Lake MDMCHC (RBC) [Mass/Vol]32.9 g/xPVpxnpg84.0-36.0 [facility] DiagnosticsComment on above:Performed By: #### 5463, 53733, 6399 #### [facility] [id number] Neuropsychiatrist: Caroline Howard #### 4420 #### [facility] [address], [address] [place] [address] Neuropsychiatrist: Edgardo Lake MDMCV (RBC) [Entitic vol]88.8 iNFactcl61.0-100.0 [facility] DiagnosticsComment on above:Performed By: #### 5463, 56519, 6399 #### [facility] [address] [place], [place] [address] Neuropsychiatrist: Caroline Howard #### 4420 #### [facility] [address], [address] [place] [address] Neuropsychiatrist: Edgardo Lake MDMonocytes (Bld) [#/Vol]0.638 10*3/uLNormal 200-950Quest DiagnosticsComment on above:Performed By: #### 5463, 06831, 6399 #### [facility] [address] [place] [address] Neuropsychiatrist: Caroline Howard #### 4420 #### [facility] [address], [address] [place] [address] Neuropsychiatrist: Edgardo Lake MDMonocytes/100 WBC (Bld)5.8 %NormalQuest DiagnosticsComment on above:Performed By: #### 5463, 84475, 6399 #### [facility] [address] [place] [address] Neuropsychiatrist: Caroline Howard #### 4420 #### [facility] [place] [address], [address] [place] [address] Neuropsychiatrist: Edgardo Lake MDNeutrophils (Bld) [#/Vol]7.843 10*3/uLHigh 1500-7800Quest DiagnosticsComment on above:Performed By: #### 5463, 40914, 6399 #### [facility] [address] [place] [address] Neuropsychiatrist: Caroline Howard #### 4420 #### [facility] [address], [address] [place] [address] Neuropsychiatrist: Edgardo Lake MDNeutrophils/100 WBC (Bld)71.3 %NormalQuest DiagnosticsComment on above:Performed By: #### 5463, 81904, 6399 #### [facility] [address] [place] [address] Neuropsychiatrist: Caroline Howard #### 4420 #### [facility] [address], [address] [place] [address] Neuropsychiatrist: Edgardo Merati MDPlatelet mean volume (Bld) [Entitic vol]8.3 fL Normal7.5-12.5Quest DiagnosticsComment on above:Performed By: #### 5463, 05151, 6399 #### [facility] [address] [place] [address] Neuropsychiatrist: Caroline Howard #### 4420 #### [facility] [place] [address], [address] [place] [address] Neuropsychiatrist: Edgardo Lake [facility] (Bld) [#/Vol]455 10*3/pFWpxc527-972 [facility]osticsComment on above:Performed By: #### 5463, 03764, 6399 #### [facility] [address] [place] [address] Neuropsychiatrist: Caroline Howard #### 4420 #### [facility] [place] [address] , [address] [place], [place] [phone] Neuropsychiatrist: Edgardo Lake [facility] (Bld) [#/Vol]4.28 10*6/uLNormal3.80-5.10 [facility]osticsComment on above:Performed By: #### 5463, 85277, 6399 #### [facility] [address] [place] [address] Neuropsychiatrist: Caroline Howard #### 4420 #### [facility] [place] [address] , [address] [place] [address] Neuropsychiatrist: Edgardo Lake [facility]DMEM[facility] (Bld) [#/Vol]11.0 10*3/uLHigh3.8-10.8Quest DiagnosticsComment on above:Performed By: #### 5463, 17000, 6399 #### [facility] [address] [place], [place] [address] Neuropsychiatrist: Caroline Howard #### 4420 #### [facility] [place] [address] [address] , [address] [place], [place] [phone] Neuropsychiatrist: Edgardo Lake MDCOMPREHENSIVE METABOLIC PANELon 06-10-2024 Albumin [Mass/Vol]4.1 g/dLNormal3.6-5.1Quest DiagnosticsComment on above:Order Comment: FASTING:NO FASTING: NOPerformed By: #### 5463, 50287, 6399 #### [facility] [address] [place] [address] Neuropsychiatrist: Caroline Howard #### 4420 #### [facility] [address], [address] [place], [place] [phone] Neuropsychiatrist: Edgardo Lake MDAlbumin/Globulin [Mass ratio]1.5 {ratio}Normal 1.0-2.5Quest DiagnosticsComment on above:Order Comment: FASTING:NO FASTING: NOPerformed By: #### 5463, 47042, 6399 #### [facility] [address] [place] [address] Neuropsychiatrist: Caroline Howard #### 4420 #### [facility] [address], [address] [place], [place] [phone] Neuropsychiatrist: Edgardo Lake MDALP [Catalytic activity/Vol]112 U/LNormal 37-153Quest DiagnosticsComment on above:Order Comment: FASTING:NO FASTING: NOPerformed By: #### 5463, 14221, 6399 #### [facility] [address] [place] [address] Neuropsychiatrist: Caroline Howard #### 4420 #### [facility] [address], [address] [place] [address] Neuropsychiatrist: Edgardo Lake MDALT [Catalytic activity/Vol]10 U/LNormal6-29 [facility] DiagnosticsComment on above:Order Comment: FASTING:NO FASTING: NOPerformed By: #### 5463, 33471, 6399 #### [facility] [address] [place], [place] [address] Neuropsychiatrist: Caroline Howard #### 4420 #### [facility] [address], [address] Neuropsychiatrist: Edgardo Lake MDAST [Catalytic activity/Vol]12 U/ZPvkpyk37-19 [facility]osticsComment on above:Order Comment: FASTING:NO FASTING: NOPerformed By: #### 5463, 04710, 6399 #### [facility] [address] [place] [address] Neuropsychiatrist: Caroline Howard #### 4420 #### [facility] [address], [address] [place] [address] Neuropsychiatrist: Edgardo Lake MDBilirubin [Mass/Vol]0.6 mg/dLNormal0.2-1.2 [facility]osticsComment on above:Order Comment: FASTING:NO FASTING: NOPerformed By: #### 5463, 61965, 6399 #### [facility] [address] [place] [address] Neuropsychiatrist: Caroline Howard #### 4420 #### [facility] [address] , [address] [place] [address] Neuropsychiatrist: Edgardo Lake MDBUN/CREATININE RATIOSEE NOTE:Normal6-22Quest DiagnosticsComment on above:Order Comment: FASTING:NO FASTING: NOResult Comment: Not Reported: BUN and Creatinine are within reference range.Performed By: #### 5463, 31649, 6399 #### [facility] [address] [place] [address] Neuropsychiatrist: Caroline Howard #### 4420 #### [facility] [address], [address] [place] [address] Neuropsychiatrist: Edgardo Lake MDCalcium [Mass/Vol]9.8 mg/dLNormal8.6-10.4Quest DiagnosticsComment on above:Order Comment: FASTING:NO FASTING: NOPerformed By: #### 5463, 90458, 6399 #### [facility] [address] [place], [place] [address] Neuropsychiatrist: Caroline Howard #### 4420 #### [facility] [address], [address] [place], [place] [phone] Neuropsychiatrist: Edgardo LEALhloride [Moles/Vol]101 mmol/ZWnjdvi89-951 [facility] DiagnosticsComment on above:Order Comment: FASTING:NO FASTING: NOPerformed By: #### 5463, 42543, 6399 #### [facility] [address] [place] [address] Neuropsychiatrist: Caroline Howard #### 4420 #### [facility] [address], [address] [place] [address] Neuropsychiatrist: Edgardo Lake MDCO2 [Moles/Vol]29 mmol/XEfmcbt62-78Rpnqz DiagnosticsComment on above:Order Comment: FASTING:NO FASTING: NOPerformed By: #### 5463, 60564, 6399 #### [facility] [address] [place] [address] Neuropsychiatrist: Caroline Howard #### 4420 #### [facility] [address], [address] [place] [address] Neuropsychiatrist: Edgardo LEALreatinine [Mass/Vol]0.63 mg/dLNormal0.60-1.00 [facility] DiagnosticsComment on above:Order Comment: FASTING:NO FASTING: NOPerformed By: #### 5463, 54196, 6399 #### [facility] [address] [place] [address] Neuropsychiatrist: Caroline Howard #### 4420 #### [facility] [address], [address] [place], [place] [phone] Neuropsychiatrist: Edgardo Lake MDGFR/1.73 sq M.predicted among non-blacks MDRD (S/P/Bld) [Vol rate/Area]94 mL/min/{1.73_m2}Normal> OR = 60[facility] Comment on above:Order Comment: FASTING:NO FASTING: NOPerformed By: #### 5463, 17958, 6399 #### [facility] [address] [place] [address] Neuropsychiatrist: Caroline Howard #### 4420 #### [facility] [address], [address] [place] [address] Neuropsychiatrist: Edgardo Lake MDGlobulin (S) [Mass/Vol]2.7 g/dLNormal1.9-3.7 [facility] DiagnosticsComment on above:Order Comment: FASTING:NO FASTING: NOPerformed By: #### 5463, 01718, 6399 #### [facility] [address] [place] [address] Neuropsychiatrist: Caroline Howard #### 4420 #### [facility] [address], [address] [place] [address] Neuropsychiatrist: Edgardo Lake MDGlucose [Mass/Vol]81 mg/pHIzohte86-626Pxhju DiagnosticsComment on above:Order Comment: FASTING:NO FASTING: NOResult Comment: Non-fasting reference intervalPerformed By: #### 5463, 70401, 6399 #### [facility] [address] [place] [address] Neuropsychiatrist: Caroline Howard #### 4420 #### [facility] [address], [address] [place] [address] Neuropsychiatrist: Edgardo MUNOZotassium [Moles/Vol]4.4 mmol/LNormal3.5-5.3 [facility] DiagnosticsComment on above:Order Comment: FASTING:NO FASTING: NOPerformed By: #### 5463, 68085, 6399 #### [facility] [address] [place] [address] Neuropsychiatrist: Caroline Howard #### 4420 #### [facility] [address], [address] [place] [address] Neuropsychiatrist: Edgardo Merati MDProtein [Mass/Vol]6.8 g/dLNormal6.1-8.1Quest DiagnosticsComment on above:Order Comment: FASTING:NO FASTING: NOPerformed By: #### 5463, 17364, 6399 #### [facility] [address] [place], [place] [address] Neuropsychiatrist: Caroline Howard #### 4420 #### [facility] [address], [address] [place] [address] Neuropsychiatrist: Edgardo Lake MDSodium [Moles/Vol]138 mmol/MWvmzqg077-382Jhfpd DiagnosticsComment on above:Order Comment: FASTING:NO FASTING: NOPerformed By: #### 5463, 07224, 6399 #### [facility] [address] [place], [place] [address] Neuropsychiatrist: Caroline Howard #### 4420 #### [facility] [place] [address] Neuropsychiatrist: Edgardo Lake MDUrea nitrogen [Mass/Vol]16 mg/dLNormal7-25 [facility] DiagnosticsComment on above:Order Comment: FASTING:NO FASTING: NOPerformed By: #### 5463, 16688, 6399 #### [facility] [address] [place], [place] [address] Neuropsychiatrist: Caroline Howard #### 4420 #### [facility] [place] [address] Neuropsychiatrist: Edgardo Lake MDSED RATE BY MODIFIED WESTERGRENon 06-10-2024 SED RATE BY MODIFIED YNBICYBDKE18 mm/hNormal< OR = 30Quest DiagnosticsComment on above:Performed By: #### 809, 07930, 6399 #### [facility] [address], [address] [place] [address] Neuropsychiatrist: Edgardo Lake MDURINALYSIS, COMPLETEon 08-27-2768Zjxrvaybac (U)CLEARNormalCLEARQuest DiagnosticsComment on above:Performed By: #### 809, 08817, 6399 #### [facility] of [address], [address] [place] [address] Neuropsychiatrist: Edgardo Lake MDBilirubin Ql (U)NegativeNormalNEGATIVEQuest DiagnosticsComment on above:Performed By: #### 809, 27184, 6399 #### [facility] of [address], [address] [place] [address] Neuropsychiatrist: Edgardo LEALolor (U)YELLOWNormalYELLOWQuest [facility]ostics Comment on above:Performed By: #### 809, 70604, 6399 #### [facility] of [place] [address] Neuropsychiatrist: Edgardo Lake MDGlucose Ql (U)NegativeNormalNEGATIVEQuest DiagnosticsComment on above:Performed By: #### 809, 74275, 6399 #### [facility] [place] [address] Neuropsychiatrist: Edgardo Lake MDKetones Ql (U)NegativeNormalNEGATIVEQuest DiagnosticsComment on above:Performed By: #### 809, 47172, 6399 #### [facility] [place] [address] Neuropsychiatrist: Edgardo Lake MDLeukocyte esterase Test strip Ql (U)Negative NormalNEGATIVEQuest DiagnosticsComment on above:Performed By: #### 809, 37538, 6399 #### [facility] [place] [address] Neuropsychiatrist: Edgardo Lake MDNitrite Ql (U)NegativeNormalNEGATIVEQuest DiagnosticsComment on above:Performed By: #### 809, 46345, 6399 #### [facility] [place] [address] Neuropsychiatrist: Edgardo Lake MDNOTENormalQuest DiagnosticsComment on above: Result Comment: This urine was analyzed for the presence of WBC, RBC, bacteria, casts, and other formed elements. Only those elements seen were reported.Performed By: #### 809, 32191, 6399 #### [facility] [place] [address] Neuropsychiatrist: Edgardo Lake MDOCCULT BLOODNegativeNormalNEGATIVEQuest DiagnosticsComment on above:Performed By: #### 809, 53665, 6399 #### [facility] [place] [address] Neuropsychiatrist: Edgardo Lake MDpH (U)6.5 [pH]Normal5.0-8.0[facility] Comment on above:Performed By: #### 809, 90315, 6399 #### [facility] [place] [address] Neuropsychiatrist: Edgardo MUNOZrotein Ql (U)NegativeNormalNEGATIVEQuest DiagnosticsComment on above:Performed By: #### 809, 16089, 6399 #### [facility] [place] [address] Neuropsychiatrist: Edgardo BUTLERpecific gravity (U) [Rel density]1.010Normal 1.001-1.035Quest DiagnosticsComment on above:Performed By: #### 809, 88180, 6399 #### [facility] [place] [address] Neuropsychiatrist: Edgardo BUTLERQUAMOUS EPITHELIAL CELLS0-5Normal< OR = 5 [facility]osticsComment on above:Performed By: #### 809, 46666, 6399 #### [facility] [place] [address] Neuropsychiatrist: Edgardo Lake MDTRANSITIONAL EPITHELIAL CELLS0-5Normal< OR = 5 [facility]osticsComment on above:Performed By: #### 809, 58770, 6399 #### [facility] [place] [address] [facility], [address] [place] [address] Neuropsychiatrist: Edgardo IBANEZ Shoulder - right 2 Viewson 05-13-2024 Imaging Result: May 13, 2024 x-rays AP and lateral of the right shoulder demonstrate reverse total shoulder replacement in good position alignment without signs of loosening fracture or failure. Impression: Stable appearance of right shoulder replacement Mainor Magana D.O.[facility] CenterRadiology Study observation (narrative)[facility] CenterXR Shoulder - right 2 ViewsOrdered By: Alexis Magana on 05-13-2024 [facility] Work Phone: Coding Summaryon 47-31-6501Qmdona SummaryHTMLBase 64 XkqsoppzXQs3mFj+PGhlYWQ+AA1IUKLmF44vrNDqeH8vH2BDKAuJBflqUHHGDQtWAjJiaxYiHS3tnXOi ZXJu [file] IGN (more content not included)...[facility] CampusCoding Summaryon 99-07-6500Pnbqvh SummaryHTMLBase 64 GhdlfzzhOLc4iEc+PGhlYWQ+TT8LLBFqF83mnHNirH4gX4TZBCxEXnfkBVOEDLfRHaSaxaJqLT3iwIYy ZXJu [file] IGN (more content not included)...NormalMercy [facility] Hospital HospitalCoding Summaryon 75-29-6441Yjhror SummaryHTMLBase 64 CzunquuqRJl6eRv+PGhlYWQ+TX4LPGUlJ89xkAQfdH5rG2VLUYrDRtvbZQMUGFnVQwOjwqRaXM1ycEKx ZXJu [file] IGN (more content not included)...NormalNjgruder HospitalCoding Summaryon 70-09-8385Ehnjyk SummaryHTMLBase 64 ZevyvvpmRMu7eNl+PGhlYWQ+WI0QBSNnI22soDAbyH9nF1PMTAhKTfpfCJAXNYsGGoQbbzJiSJ5tkDHv ZXJu [file] IGN (more content not included)...[facility] HospitalCoding Summaryon 40-23-8096Adlqyt SummaryHTMLBase 64 ZfvgwijwQOj1aAr+PGhlYWQ+PI3OFTIvL04lkHMyyL1qE6ZQYGqYDhpnGHFSHQhYIaAfmyLeYP3gdTCa ZXJu [file] IGN (more content not included)...NormalMercy Memorial Hospital HospitalCoding SummaryHTMLBase 64 WnoelhykTFf8cJq+PGhlYWQ+XZ3QMEXaV46qpEMoiH8dU0CNJGiJZwlhHVLOLDqQLcLnjtXmNV5zlMIx ZXJu [file] IGN (more content not included)...[facility] HospitalCoding Summaryon 58-34-7135Mubloy SummaryHTMLBase 64 FgeqofmlSGg4tHk+PGhlYWQ+HF4CPFKlT25cvCEppV2oW5WHDTkFNhvrFNYMFWlIEzBuhdTxVP5huNKa ZXJu [file] IGN (more content not included)...NormalMagruder HospitalConsent Formson 38-55-1738Lyeyvze [id number]#1.00OTGTIFFNormal [facility] HospitalCoding Summaryon 68-48-8733Imfloz SummaryHTMLBase 64 NxwliircWPn2dJa+PGhlYWQ+VG0IFRNxV10ceGXzfL1vP3CUQPqKKvmgMJXRPYyDOaDutqAuMA1tgNCh ZXJu [file] IGN (more content not included)...[facility] HospitalCoding Summaryon 64-78-7204Dedmdd SummaryMLBase 64 FeiqleboAPm5jIo+PGhlYWQ+KD1MQAXqU25aaSGlyX0pI3VHYYbISgiqGUDDKDvEJcPfeaRmRJ9uyLNc ZXJu [file] IGN (more content not included)...[facility] CampusWound Cultureon 57-59-4087Ltdfu CultureScant growth of Pseudomonas aeruginosa Rare epithelial [...] Verified Tobra S <=4 Verified Tri/Sulf >2/ VerifiedSumma Health Barberton CampusComment on above:Performed By: #### [id number] ####[facility] (DEFAULT)[address] [place], [place] [address]Zuvwqi Summaryon 65-49-4683Nuhvwr SummaryMLBase 64 NkiivztsVXk9iDg+PGhlYWQ+FI8DACXaT31gqZBplE6gO2PSWStCBwbmPVZNOZvCMfZyaqYhCJ8gmQOb ZXJu [file] Y29 (more content not included)...NormalMagrdayton va medical center HospitalMAGR Intraoperative Recordon 36-39-5207EXAL Intraoperative RecordMAGR Intra-Op Record Summary Primary Physician: Alexis Magana DO Finalized Date/Time: 11/02/23 13:43:12 Pt. Name: DISHA DE LA GARZA Pinky Pryor/Sex: 1950 FEMALE Med Rec #: [id number] Physician: Alexis Magana DO Financial #: [id number] Pt. Type: O Room/Bed: [facility] Admit/Disch: 10/29/23 08:16:12 - 10/30/23 10:30:00 Institution: Case Times MAGR Entry 1 Patient In Room Time 10/29/23 10:29:00 Out Room Time 10/29/23 12:46:00 Anesthesia Start Time 10/29/23 10:29:00 Stop Time 10/29/23 12:47:00 Surgery Start Time 10/29/23 11:02:00 Stop Time 10/29/23 12:46:00 Last Modified By: Alicia Yeh RN 10/29/23 12:50:40 Case Attendance MAGR Entry 1 Entry 2 Entry 3 Case Attendee Alexis Magana John M MD Long, Barbara RN Andrew DO Role Performed Surgeon - Primary Anesthesiologist of Mixer And Scaler Record Time In 10/29/23 10:29:00 10/29/23 10:29:00 10/29/23 10:29:00 Time Out 10/29/23 12:46:00 10/29/23 12:46:00 10/29/23 12:46:00 Procedure Arthroplasty Shoulder Arthroplasty Shoulder Arthroplasty Shoulder Total Reverse Total Reverse Total Reverse Last Modified By: Alicia Yeh RN, Barbara RN Long, Barbara RN 10/29/23 12:50:41 10/29/23 12:50:41 10/29/23 12:50:41 Entry 4 Entry 5 Entry 6 Case Attendee Jd DEUTSCH, Jennifer Castillo Brittany E CSFA CST Role Performed Scrub Personnel Cross Cut Saw Operator Cross Cut Saw Operator Time In 10/29/23 10:29:00 10/29/23 10:29:00 10/29/23 [...] Delta Lucio MD, Alicia Yeh RN, Jd LADLE REPAIRER, Kimberly Contreras Lauren M CSFA, Nasreen Agudelo LADLE REPAIRER Last Modified By: Alicia Yeh RN 10/29/23 11:08:20 Patient Positioning MAGR Pre-Care Text: A.280 Identifies baseline musculoskeletal status Im.40 Positions the patient Im.80 Applies safety devices Entry 1 Procedure Arthroplasty Shoulder Body Positi (more content not included)...Normal [facility] HospitalConsent Formson 77-97-7020Vvmqgai Forms [id number]#1.00[facility] Postoperative Recordon 68-33-9422RJLK Postoperative RecordMAGR Phase II Record Summary Primary Physician: Alexis Magana DO Finalized Date/Time: 10/31/23 10:27:03 Pt. Name: DISHA DE LA GARZA/Sex: 1950 FEMALE Med Rec #: [id number] Physician: Alexis Magana DO Financial #: [id number] Pt. Type: O Room/Bed: [facility] Admit/Disch: 10/29/23 08:16:12 - 10/30/23 10:30:00 [...] discharge instructions. General Comments: patient taken to [facility] for Phase II and possibly spending the night Finalized By: Darshana Menjivar RN Document Signatures Signed By: Darshana Menjivar RN 10/31/23 10:27[facility] CampusOutside Recordson 10-31-2023 Outside [id number]#1.00OTGTSelect Medical Specialty Hospital - CincinnatiProvider Orderson 49-74-0346Ctfqxwgb Orders [id number]#1.00[facility] Telemetry Stripson 70-35-3423Dbnpoohlr Strips [id number]#1.00[facility] Consultation/Specialist Noteon 87-32-2520Ugqejxprwydf/Specialist NotePatient: DISHA DE LA GARZA Age: 73 [...] [place] [Verified on: 10/30/2023 08:53 EST] [facility]In[facility]on 10-30-[facility]23 Inpatient Patient [address] [address] Patient Discharge Instructions Name: DISHA DE LA GARZA : 1950 [facility]: [id number] Patient Address: [address] [place], [place] [address] Primary Care Provider: Name: WILL TIM After you are discharged if you find you have any questions, please, call [phone] ext [phone] to speak to a nurse. The Pharmacy at [facility] is open Sunday through Sunday from [...] alcohol and/or drug addiction problems; contact the [facility] 09/04 Crisis Hotline -Text 4UCWE ws 020547. If you received any narcotics, sedation, or [...] business decisions or sign any legal documents [facility] would like to thank you for allowing us to assist you with your healthcare needs.The following includes patient education materials and information regarding your injury/illness. DISHA DE LA GARZA has been given the following list of follow-up instructions, prescriptions, and patient education materials: Follow-up Instructions With: Address: When: TREY RICHMOND [address] [place] [address], [address] [place], [place] [id number] Business (1) 11/05/2023 11:30 AM With: Address: When: WILL MEETA [address] [facility], [place] [address] Business (1) With: Address: When: Alexis Magana [address] [place] [address], [address] [place] [address] Business (1) 11/06/2023 10:00 AM Medications During [...] mouth) every 6 hours (scheduled) as needed Wen (more content not included)...[facility] CampusPharmacy Noteon 10-76-6054Pdglzcms NoteI have personally reviewed the patient's current [...] [Verified on: 10/30/2023 08:04 EST] Jeet Lambert PharmTriHealth Bethesda Butler HospitalAnesthesia Noteon 10-29-2023 Anesthesia NotePatient: DISHA DE LA GARZA Age: 73 years Sex: FEMALE : 1950 Associated Diagnoses: None Author: Delta Lucio MD Postoperative Information Post Operative Note Health Status Allergies: Allergic Reactions (All) Moderate Plaquenil- Rash. 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 Diabetes / SNOMED CT 658091853 / Confirmed GERD (gastroesophageal reflux disease) / SNOMED CT 563667506 / Confirmed Mixed hyperlipidemia / SNOMED CT 240997049 / Confirmed Obesity / SNOMED CT 1436647518 / Confirmed Recurrent hematuria / SNOMED CT 688060340 / Confirmed Rupture of rotator cuff of right shoulder / SNOMED CT 0403187464 / Confirmed Smoker / SNOMED CT 370708221 / Confirmed Spondylolisthesis / SNOMED CT 992886180 / Confirmed Urge incontinence of urine / SNOMED CT 109105882 / Confirmed Vascular insufficiency / SNOMED CT 541671812 / Confirmed Physical Examination VS/Measurements Vital Signs [...] [Verified on: 10/29/2023 17:57 EST] Delta Lucio MDSumma Health Barberton CampusAnesthesia NotePatient: DISHA DE LA GARZA Age: 73 [...] history): All Problems Arthritis / SNOMED CT 6533109 / Confirmed Bilateral angle-closure glaucoma / SNOMED CT 7892700561 / Confirmed DJD of shoulder / SNOMED CT 817560541 / Confirmed Diabetes / SNOMED CT 190931199 / Confirmed GERD (gastroesophageal reflux disease) / SNOMED CT 045668772 / Confirmed Mixed hyperlipidemia / SNOMED CT 253186899 / Confirmed Obesity / SNOMED CT 7971294898 / Confirmed Recurrent hematuria / SNOMED CT 420310576 / Confirmed Rupture of rotator cuff of right shoulder / SNOMED CT 6590460417 / Confirmed Smoker / SNOMED CT 684314334 / Confirmed Spondylolisthesis / SNOMED CT 348619899 / Confirmed Urge incontinence of urine / SNOMED CT 077716234 / Confirmed Vascular insufficiency / SNOMED CT 148323619 / Confirmed Histories Family History: No family history items have been selected or recorded. Procedure history: Total shoulder replacement (13528901) in the month of 04/2023 at 73 Years. Comments: 10/04/2023 15:26 Skyla Solares RN Left reverse Nerve (9173514). Comments: 10/04/2023 15:27 Skyla Solares RN Left arm- pt unsure of what nerve Abdominal hysterectomy (804922887). Tonsillectomy and adenoidectomy (843172020). Laparoscopic cholecystectomy (12619071). Total knee arthroplasty (5820157070). Comments: 10/04/2023 15:27 Skyla Solares RN bilateral knees Ovarian cyst (369131815). Comments: 10/04/2023 15:29 Skyla Solares RN Removal of Appendectomy (425411906). Social History Electronic Cigarette/Vaping Assessment Electronic Cigarette [...] 29:00) Review / Management Laboratory Results Plan [place] [employer] Anesthesiologists#(ASA) physical status classification: Class III. Anesthetic Preoperative Plan Anesthesia: General. , Regional Interscalene Block. Anesthetic plan, risks, benefits, and alternatives discussed with the patient and/or family. Patient verbalized understanding. [Electronically Signed on: 10/29/2023 10:04 EST] Delta Lucio MD [Verified on: 10/29/2023 10:04 EST] Delta Lucio MDAshtabula County Medical CenterGR Intraoperative Recordon 10-29-2023 MAGR Intraoperative RecordMAGR Intra-Op Record Summary Primary Physician: Finalized Date/Time: 10/29/23 10:39:51 Pt. Name: DISHA DE LA GARZA Pinky Pryor/Sex: 1950 FEMALE Med Rec #: [id number] Physician: Alexis Magana DO Financial #: [id number] Pt. Type: D Room/Bed: [facility] Admit/Disch: 10/29/23 08:16:12 - Institution: Case [...] Draper, Lora RN Role Performed Anesthesiologist of Mixer And Scaler Mixer And Scaler Record Time In 10/29/23 09:52:00 10/29/23 09:52:00 [...] Gluconate Prep By Kameron (more content not included)...[facility] PACU Recordon 83-01-3611HQLR PACU Record MAGR PACU Record Summary Primary Physician: Alexis Magana DO Finalized Date/Time: 10/29/23 13:55:02 Pt. Name: DISHA DE LA GARZA D.O.B./Sex: 1950 FEMALE Med Rec #: [id number] Physician: Alexis Magana DO Financial #: [id number] Pt. Type: D Room/Bed: 227/1 Admit/Disch: 10/29/23 08:16:12 - Institution: PACU Case Times MAGR Entry 1 In PACU I 10/29/23 12:51:00 Discharge from PACU 10/29/23 13:45:00 I Last Modified By: Darshana Menjivar RN 10/29/23 13:55:01 Finalized By: Darshana Menjivar RN Document Signatures Signed By: Darshana Menjivar RN 10/29/23 13:55NoSouth[facility] Preoperative Recordon 76-53-6887JDSE Preoperative RecordVALLEY [facility] Pre-Op Record Summary Primary Physician: Alexis Magana DO Finalized Date/Time: 10/29/23 10:41:55 Pt. Name: DISHA DE LA GARZA D.O.B./Sex: 1950 FEMALE Med Rec #: [id number] Physician: Alexis Magana DO Financial #: [id number] Pt. Type: D Room/Bed: 227/1 Admit/Disch: 10/29/23 [...] Signatures Signed By: Skyla Garcia RN 10/29/23 10:41[facility] CampusNutrition Noteon 10-29-2023 Nutrition NotePt admitted for scheduled Rt shoulder surgery. Diet advanced to Regular. Pre-op wts/ labs reviewed.10/29 BS 93. Pt with DM, no recent hgbA1C on file. No chewing/swallowing problems identified. Other than age greater than 65y and surgery, Pt appears at low nutrition risk. Diet adjusted to 1800CD for consistent CHO intake.[facility] CampusOperative Report - Surgeon/Physicianon 93-24-8109Imuumtksl Report - Surgeon/PhysicianPreoperative diagnosis: Rotator cuff tear [...] blood loss: 250 Complications: No complication Findings: Zwhn-dl-cxzq and deficient rotator cuff Procedure summary: Patient [...] [Verified on: 10/29/2023 12:58 EST] Alexis Magana [facility] HospitalPOCT Glucose Levelon 91-03-4031Nqgceob [Mass/Vol]112 mg/yAPilbdo44-592Csrfohdj35 Harris StreetComment on above:Performed By: #### [id number] #### [facility] (DEFAULT) [address] [place] [address]Wxosyfi [Mass/Vol]93 mg/pGGacnut23-356Gcnbqepe[address] Comment on above:Performed By: #### [id number] ####[facility] (DEFAULT)[address] [place] [address] 71120JG Shoulder 1 View Righton 50-39-7706LZ Shoulder 1 View RightEXAM: XR Shoulder 1 [...] Fong MD 10/29/23 4:00 pm Technologist: RAVEN JUNGCincinnati VA Medical CenterComment on above:Order Comment: default status post shoulder replacementPatient Handouton 42-83-5658Miqosyg HandoutDRKevin MAGANA'Romina POST OPERATIVE SHOULDER INSTRUCTIONS: SURGEON'S [...] or concerns, please call the office at [phone]. 7. Follow up as scheduled.[facility] CampusProess Note - Nurseon 02-31-8108Dgycocot Note - NursePre-op call done, instructed to arrive @ 0830 on 10-29-23, NPO after midnight-verbalized understanding. [Electronically Signed on: 10/26/2023 10:21 EST] Jeanna Mccain RN [Verified on: 10/26/2023 10:21 EST] Jeanna Mccain RNNormalMercy Memorial Hospital HospitalCoding Summaryon 46-21-6352Aooqgh Summary HTMLBase 64 KcmspdwqXXu6cVh+PGhlYWQ+GQ8PBGGjT72ddGFeaA4sR0YVMNsKPyokCOOUKRiWIhBcxaVyGP8eoPFf ZXJu [file] IGN (more content not included)...[facility] Urineon 10-06-2023 UrineUrine Culture ordered as a result of parameters set on specific urine dip and urine microsopic results. Mixed skin, or urogenital eduard. Clinically insignificantSumma Health Barberton Campus Comment on above:Performed By: #### [id number], [id number], [id number] ####[facility] (DEFAULT)[address] [place] [address] 46889M MRSA Screenon 10-05-2023 MRSA ScreenNegativeSumma Health Barberton CampusComment on above:Performed By: #### [id number] ####[facility] (DEFAULT)[address] [place] [address] 116[address]Vmeqmchz Orderson 72-58-6047Iowecsyf Orders [id number]#1.00OTGTIFFSumma Health Barberton CampusUA Kzmub0aq 75-30-5063QX Bacteria1+[facility] CampusComment on above:Order Comment: Urinalysis Microscopic order added on by AisleBuyer Expert Rules system. Performed By: #### [id number], [id number], [id number] ####[facility] (DEFAULT)[address] [place] [address] 08089OK MucousTraceSumma Health Barberton CampusComment on above:Order Comment: Urinalysis Microscopic order added on by AisleBuyer Expert Rules system.Performed By: #### [id number], [id number], [id number] ####[facility] (DEFAULT)[address] [place], [place] [address]UA RBC3-5 NormalOhio State Harding HospitalComment on above:Order Comment: Urinalysis Microscopic order added on by Discern Expert Rules system.Performed By: #### [id number], [id number], [id number] ####[facility] (DEFAULT)[address] [place], [place] [address]UA Renal EpiFewWayne Hospital HospitalComment on above:Order Comment: Urinalysis Microscopic order added on by AisleBuyer Expert Rules system. Performed By: #### [id number], [id number], [id number] ####[facility] (DEFAULT)[address] [place], [place] [address]UA Squam EpiFewWayne Hospital HospitalComment on above:Order Comment: Urinalysis Microscopic order added on by AisleBuyer Expert Rules system.Performed By: #### [id number], [id number], [id number] ####[facility] (DEFAULT)[address] [place], [place] [address]UA WBC5-10 [facility] CampusComment on above:Order Comment: Urinalysis Microscopic order added on by AisleBuyer Expert Rules system.Performed By: #### [id number], [id number], [id number] ####[facility] (DEFAULT)[address] [place], [place] [address]UA w Culture if Ind Standardon 68-42-9914Gpslsyscsj UA [facility] HospitalComment on above:Performed By: #### [id number], [id number], [id number] ####[facility] (DEFAULT)[address] [place] [address] Color (U)YellowNoMetroHealth Parma Medical CenterComment on above:Performed By: #### [id number], [id number], [id number] ####[facility] (DEFAULT)[address] [place], [place] [address]Culture?IndicatedInvalid Interpretation CodeMercy Memorial Hospital HospitalComment on above:Result Comment: Result created by rule GL_MAGR_ADD_UA_CULT Result created by rule GL_MAGR_ADD_UA_CULT Result created by rule GL_MAGR_ADD_UA_CULT1 Result created by rule GL_MAGR_ADD_UA_CULTPerformed By: #### [id number], [id number], [id number] ####[facility] (DEFAULT)[address] [place] [address] 46786Lrjbqmg (U) [Mass/Vol]NegativeNormalMercy Memorial Hospital HospitalComment on above:Performed By: #### [id number], [id number], [id number] ####[facility] (DEFAULT)[address] [place] [address] 85351Nxxlfgh Ql (U)NegativeNormCincinnati Shriners Hospital HospitalComment on above:Performed By: #### [id number], [id number], [id number] ####[facility] (DEFAULT)[address] [place] [address] 61571Jhsyd?IndicatedInvalid Interpretation [facility] Comment on above:Result Comment: Result created by rule GL_MAGR_ADD_UA_MICRO Performed By: #### [id number], [id number], [id number] ####[facility] (DEFAULT)[address] [place] [address] 53836ZQ BilirubinNegativeNormal [facility] HospitalComment on above:Performed By: #### [id number], [id number], [id number] ####[facility] (DEFAULT)[address] [place] [address]15[address] UA BloodTRACEAbnormalNEGATIVEMercy Memorial Hospital HospitalComment on above:Performed By: #### [id number], [id number], [id number] ####[facility] (DEFAULT)[address] [place] [address] 41394QV ClarityCLEARNormalCLEARMercy Memorial Hospital HospitalComment on above:Performed By: #### [id number], [id number], [id number] ####[facility] (DEFAULT)[address] [place] [address] 67888NG Leuk EstTRACEAbnormalNEGATIVE [facility] HospitalComment on above:Performed By: #### [id number], [id number], [id number] ####[facility] (DEFAULT)[address] [place] [address] 98[address] UA NitriteNegativeNormalNEGATIVEMercy Memorial Hospital HospitalComment on above:Performed By: #### [id number], [id number], [id number] ####[facility] (DEFAULT)[address] [place] [address] 35876KB pH6.2Imeawn3-3Aetfnpkb HospitalComment on above: Performed By: #### [id number], [id number], [id number] ####[facility] (DEFAULT)[address] [place] [address] 61817AB ProteinNegativeNormalNEGATIVE [facility] HospitalComment on above:Performed By: #### [id number], [id number], [id number] ####[facility] (DEFAULT)[address] [place] [address] 23709 UA Spec Grav1.363Tddoin3.001-1.035[facility] HospitalComment on above:Performed By: #### [id number], [id number], [id number] ####[facility] (DEFAULT)[address] [place] [address] 64852PF Urobilinogen0.2 mg/dLNormal0.2-1.0[facility] HospitalComment on above:Performed By: #### [id number], [id number], [id number] ####[facility] (DEFAULT)[address] [place] [address] 68474Psdnl SourceClean CatchNormalMercy Memorial Hospital HospitalComment on above:Performed By: #### [id number], [id number], [id number] ####[facility] (DEFAULT)[address] [place] [address] 74667X9 and C4 COMPLEMENTon 56-72-7536Vsrjwjlgxe C3, Qeuft038 mg/dLCritically fqhp90-603Xdr [facility] HospitalComment on above: Performed By: #### BMP #### [facility] [address] [place] [address] Dr. Zeke Guerra C4, Serum41 mg/dLCritically xyfi91-61Gpw [facility] on above:Performed By: #### BMP #### [facility] [address] [place] [address] Dr. Zeke Guerra TOTAL (CH50)on 40-01-1002Gorjgziiza, Total (CH50)>60 Normal>41The Parkwood HospitalComment on above:Result Comment: Age Male Female [...] of range values.Performed By: #### SEDR #### [facility] [address] [place] [address] Dr. Zeke Austin AUTO DIFFon 29-71-1430XMJZ #0.0 103/ulNormal0.0-0.1[facility] Hospitalment on above:Performed By: #### CBC #### [facility] [address] [place] [address] Dr. Zeke GarciaBasophils/100 WBC (Bld)0.6 %Normal0.2-2.0[facility] Comment on above:Performed By: #### CBC #### [facility] [address] [place] [address] Dr. Zeke Thacker #0.1 103/ulNormal0.0-0.7The [facility] on above: Performed By: #### CBC #### [facility] [address] [place] [address] Dr. Zeke Hodgeosinophils/100 WBC (Bld)1.9 %Normal0.9-7.0[facility] Comment on above:Performed By: #### CBC #### [facility] [address] [place] [address] Dr. Zeke Hodgerythrocyte distribution width (RBC) [Ratio]15.4 %Critically high 11.0-15.0The Parkwood HospitalComment on above:Performed By: #### CBC #### [facility] [address] [place] [address] Dr. Zeke GarciaHematocrit (Bld) [Volume fraction]36.3 %Xshdok15.0-48.0The [facility] HospitalComment on above:Performed By: #### CBC #### [facility] [address] [place] [address] Dr. Zeke GarciaHemoglobin (Bld) [Mass/Vol]12.1 g/nRDgyvyz33.0-16.0The [facility] on above:Performed By: #### CBC #### [facility] [address] [place] [address] Dr. Zeke Mahan #0.02 10e3/ulNormal0.00-0.03The [facility] on above:Performed By: #### CBC #### [facility] [address] [place] [address] Dr. Zeke Mahan %0.3 %Normal0.0-0.5[facility] on above: Performed By: #### CBC #### [facility] [address] [place] [address] Dr. Zeke BeckH #1.4 103/ulNormal1.2-3.8[facility] on above:Performed By: #### CBC #### [facility] [address] [place] [address] Dr. Zeke Stallingsmphocytes/100 WBC (Bld)20.4 %Critically low20.5-60.0The [facility] on above:Performed By: #### CBC #### [facility] [address] [place] [address] Dr. Zeke CalderonUAL DIFF REQNONormalThe [facility]wood HospitalComment on above: Performed By: #### CBC #### [facility] [address] [address] [address] Zeke Christensen (RBC) [Entitic mass]29.9 cyYpreyh37.7-34.0The [facility] HospitalComment on above:Performed By: #### CBC #### [facility] [address] [place] [address] Dr. Zeke Christensen (RBC) [Mass/Vol]33.3 g/vYZnwamb78.9-35.2The [facility] HospitalComment on above:Performed By: #### CBC #### [facility] [address] [place] [address] Dr. Zeke ChristensenV (RBC) [Entitic vol]89.6 rQRvjphl45.0-99.0The [facility] HospitalComment on above:Performed By: #### CBC #### [facility] [address] [place] [address] Dr. Zeke Alaniz #0.5 103/ulNormal0.3-0.8The [facility] HospitalComment on above:Performed By: #### CBC #### [facility] [address] [place] [address] Dr. Zeke Cerdaocytes/100 WBC (Bld)7.3 %Normal1.7-12.0The [facility] Comment on above:Performed By: #### CBC #### [facility] [address] [place] [address] Dr. Zeke Dick #4.9 103/ulNormal1.4-6.5The [facility] HospitalComment on above:Performed By: #### CBC #### [facility] [address] [place] [address] Dr. Zeke Ernstutrophils/100 WBC (Bld)69.5 %Mqfyae44.0-75.0The [facility] HospitalComment on above:Performed By: #### CBC #### [facility] [address] [place] [address] Dr. Zeke Sonlet mean volume (Bld) [Entitic vol]8.6 fLCritically low 9.5-13.5The [facility] Memorialment on above:Performed By: #### CBC #### [facility] [address] [place] [address] Dr. Zeke GarciaPLT338 103/waOxdbgc210-601Yoc [facility] on above: Performed By: #### CBC #### [facility] [address] [place] [address] Dr. Zeke GarciaRBC4.05 106/ulCritically low4.20-5.40The [facility] on above:Performed By: #### CBC #### [facility] [address] [place] [address] Dr. Zeke GarciaWBC7.0 103/ulNormal4.0-11.0The [facility] on above: Performed By: #### CBC #### [facility] [address] [place] [address] Dr. Zeke Angeles 93-68-2417MTM3.5 mg/dLCritically high<=1.0The [facility] on above:Performed By: #### BMP #### [facility] [address] [place] [address] Dr. Zeke GarciaPROF 14(COMP METB)on 54-40-7352Iwrksey [Mass/Vol]3.0 g/dL Critically low3.4-5.0The [facility] on above:Performed By: #### BMP #### [facility] [address] [place] [address] Dr. Zeke GarciaAlbumin/Globulin [Mass ratio]0.7 {ratio}NormalThe [facility]Com[facility] on above:Performed By: #### BMP #### [facility] [address] [place] [address] Dr. Zeke Galo [Catalytic activity/Vol]107 U/CUxjyty48-757Zsh [facility] on above:Performed By: #### BMP #### [facility] [address] [place] [address] Dr. Zeke Dorantes [Catalytic activity/Vol]17 U/YThsdzk65-85Zoz Kashmir HospitalComment on above:Performed By: #### BMP #### [facility] [address] [address] [address] Zeke Marin gap [Moles/Vol]12.2 mmol/LNormalThe [facility] Comment on above:Performed By: #### BMP #### [facility] [address] [address] [address] Zeke GarciaAST [Catalytic activity/Vol]16 U/IJxaysd79-17Yvx [facility] HospitalComment on above:Performed By: #### BMP #### [facility] [address] [address] [address] Zeke GarciaBilirubin [Mass/Vol]0.4 mg/dLNormal0.2-1.0The [facility] Comment on above:Performed By: #### BMP #### [facility] [address] [place] [address] Dr. Zeke GarciaCalcium [Mass/Vol]9.7 mg/dLNormal8.5-10.1The [facility] Comment on above:Performed By: #### BMP #### [facility] [address] [address] [address] Zeke GarciaChloride [Moles/Vol]100 mmol/EHkatwf21-802Wjf [facility] Comment on above:Performed By: #### BMP #### [facility] [address] [address] [address] Zeke GarciaCO2 [Moles/Vol]28.6 mmol/KWuebsq74.0-32.0The [facility] Comment on above:Performed By: #### BMP #### [facility] [address] [address] [address] Zeke GarciaCreatinine [Mass/Vol]0.63 mg/dLNormal0.55-1.02The [facility] HospitalComment on above:Performed By: #### BMP #### [facility] [address] [address] [address] Alanis ChangEGFR-AF LIBYAN>60Normal>=60The [facility] HospitalComment on above:Performed By: #### BMP #### [facility] [address] [address] [address] Zeke HodgeGFR-NON AF LIBYAN>60Normal>=60The [facility] HospitalComment on above:Performed By: #### BMP #### [facility] [address] [address] [address] Zeke GarciaGlobulin (S) [Mass/Vol]4.3 g/dLNormSelect Medical Specialty Hospital - AkronComment on above:Performed By: #### BMP #### [facility] [address] [address] [address] Zeke GarciaGlucose [Mass/Vol]126 mg/dLCritically xjmd38-773Cnq [facility] HospitalComment on above:Performed By: #### BMP #### [facility] [address] [place] [address] Dr. Zeke GarciaPotassium [Moles/Vol]3.8 mmol/LNormal3.5-5.1The [facility] Comment on above:Performed By: #### BMP #### [facility] [address] [place] [address] Dr. Zeke GarciaProtein [Mass/Vol]7.3 g/dLNormal6.4-8.2The [facility] Comment on above:Performed By: #### BMP #### [facility] [address] [place] [address] Dr. Zeke GarciaSodium [Moles/Vol]137 mmol/UCmnouo096-988Rdn [facility] Comment on above:Performed By: #### BMP #### [facility] [address] [place] [address] Dr. Zeke GarciaUrea nitrogen [Mass/Vol]11.0 mg/dLNormal7.0-18.0The [facility] HospitalComment on above:Performed By: #### BMP #### [facility] [address] [place] [address] Dr. Zeke Cartwright nitrogen/Creatinine [Mass ratio]17.5 mg/mgNormalThAvita Health SystemComment on above:Performed By: #### BMP #### [facility] [address] [address] [address] Zeke Salmeron RATE WESTERGRENon 36-20-4142PGI RATE66 mm/hrCritically high <=30[facility] HospitalComment on above:Performed By: #### SEDR #### [facility] [address] [address] [address] Zeke Aguiar RANDOM W/MICROSCOPICon 52-87-2183BRQOGYAPKBKZ SEENNormalNONE SEENBethesda North HospitalComment on above:Performed By: #### SEDR #### [facility] [address] [address] [address] Zeke GarciaBilirubin Ql (U)NegativeNormalNEGATIVEBethesda North Hospital Comment on above:Performed By: #### SEDR #### [facility] [address] [place] [address] Dr. Zeke Lin SEENNormalNONE SEENBethesda North HospitalComment on above:Performed By: #### SEDR #### [facility] [address] [address] [address] Zeke Leivaarity (U)CLEARNormalCLEARThe [facility] HospitalComment on above: Performed By: #### SEDR #### [facility] [address] [address] [address] Zeke Gamez (U)LT. YELLOWNormalYELLOWBethesda North HospitalComment on above:Performed By: #### SEDR #### [facility] [address] [address] [address] Zeke GarciaCrystals LM Nom (Urine sed)NONE SEENNormalNONE SEENBethesda North HospitalComment on above:Performed By: #### SEDR #### [facility] [address] [address] [address] Alanis ChangEpithelial cells LM Ql (Urine sed)FEWAbnormalNONE SEEN /RAREThe [facility]wood HospitalComment on above:Performed By: #### SEDR #### [facility] [address] [address] [address] Zeke Chowdhuryose Ql (U)NegativeNormalNEGATIVEBethesda North HospitalComment on above:Performed By: #### SEDR #### [facility] [address] [place] [address] Dr. Zeke GarciaHemoglobin Ql (U)SMALLAbnormalNEGKnox Community Hospital Comment on above:Performed By: #### SEDR #### [facility] [address] [address] [address] Zeke GarciaKetones Ql (U)NegativeNormalNEGATIVEBethesda North HospitalComment on above:Performed By: #### SEDR #### [facility] [address] [place] [address] Dr. Zeke GarciaLEUKOCYTESNegativeNormalNEGATIVEBethesda North HospitalComment on above:Performed By: #### SEDR #### [facility] [address] [place] [address] Dr. Zeke GarciaMUCOUSNONE SEENNormalNONE SEENBethesda North HospitalComment on above:Performed By: #### SEDR #### [facility] [address] [place] [address] Dr. Zeke Currytrite Ql (U)NegativeNormalNEGKnox Community HospitalComment on above:Performed By: #### SEDR #### [facility] [address] [place] [address] Dr. Zeke GarciapH (U)5.0 [pH]Normal5-9The [facility] HospitalComment on above: Performed By: #### SEDR #### [facility] [address] [place] [address] Dr. Zeke GarciaKdwusJOS3-9Wswwgp9-9Zqz [facility]vue HospitalComment on above:Performed By: #### SEDR #### [facility] [address] [place] [address] Dr. Zeke GarciaSPEC GRAVITY<=1.239Vimchvqa2.005-<=1.025The [facility] Comment on above:Performed By: #### SEDR #### [facility] [address] [place] [address] Dr. Yilan ChangUA PROTEINNegativeNormalNEGATIVE/ TRACEThe [facility] Comment on above:Performed By: #### SEDR #### [facility] [address] [place] [address] Dr. Zeke Pachecobilkalpana Qn (U)0.2 {Lin'U}/dLNormal0.2 - 1.0[facility] HospitalComment on above:Performed By: #### SEDR #### [facility] [address] [place] [address] Dr. Zeke GarciaWBCNONKy SEENNormalNONE SEENThe [facility] HospitalComment on above: Performed By: #### SEDR #### [facility] [address] [place] [address] Dr. Zeke ReyesC AUTO DIFFon [id number] #0.0 103/ulNormal0.0-0.1The [facility] HospitalComment on above:Performed By: #### CBC #### [facility] [address] [place] [address] Dr. Zeke GarciaBasophils/100 WBC (Bld)0.4 %Normal0.2-2.0[facility] Comment on above:Performed By: #### CBC #### [facility] [address] [place] [address] Dr. Zeke Thacker #0.1 103/ulNormal0.0-0.7The [facility] HospitalComment on above: Performed By: #### CBC #### [facility] [address] [place] [address] Dr. Zeke Hodgeosinophils/100 WBC (Bld)0.9 %Normal0.9-7.0The [facility] Comment on above:Performed By: #### CBC #### [facility] [address] [place] [address] Dr. Zeke Hodgerythrocyte distribution width (RBC) [Ratio]15.5 %Critically high 11.0-15.0The [facility] HospitalComment on above:Performed By: #### CBC #### [facility] [address] [address] [address] Zeke Tovaratocrit (Bld) [Volume fraction]35.8 %Critically low36.0-48.0 The [facility] on above:Performed By: #### CBC #### [facility] [address] [place] [address] Dr. Zeke GarciaHemoglobin (Bld) [Mass/Vol]11.9 g/dLCritically low12.0-16.0The [facility]Com[facility] on above:Performed By: #### CBC #### [facility] [address] [place] [address] Dr. Zeke GarciaIG #0.01 10e3/ulNormal0.00-0.03The [facility] on above:Performed By: #### CBC #### [facility] [address] [place] [address] Dr. Zeke Mahan %0.1 %Normal0.0-0.5The [facility] on above: Performed By: #### CBC #### [facility] [address] [place] [address] Dr. Zeke Scruggs #1.5 103/ulNormal1.2-3.8The [facility] on above:Performed By: #### CBC #### [facility] [address] [place] [address] Dr. Zeke Stallingsmphocytes/100 WBC (Bld)20.5 %Bwtiww37.5-60.0The [facility] on above:Performed By: #### CBC #### [facility] [address] [place] [address] Dr. Zeke GarciaMANUAL DIFF REQNONormalThe [facility] HospitalComment on above: Performed By: #### CBC #### [facility] [address] [place] [address] Dr. Zeke Mosqueda (RBC) [Entitic mass]30.2 sqMwfskw40.7-34.0The [facility] HospitalComment on above:Performed By: #### CBC #### [facility] [address] [address] [address] Zeke ChristensenHC (RBC) [Mass/Vol]33.2 g/jJFfgpvi65.9-35.2The [facility] HospitalComment on above:Performed By: #### CBC #### [facility] [address] [place] [address] Dr. Zeke ChristensenV (RBC) [Entitic vol]90.9 bZKuehwg86.0-99.0The [facility] HospitalComment on above:Performed By: #### CBC #### [facility] [address] [place] [address] Dr. Zeke Alaniz #0.3 103/ulNormal0.3-0.8The [facility] HospitalComment on above:Performed By: #### CBC #### [facility] [address] [place] [address] Dr. Zeke Cerdaocytes/100 WBC (Bld)3.7 %Normal1.7-12.0The [facility] Comment on above:Performed By: #### CBC #### [facility] [address] [place] [address] Dr. Zeke Dick #5.6 103/ulNormal1.4-6.5The [facility] HospitalComment on above:Performed By: #### CBC #### [facility] [address] [place] [address] Dr. Zeke Ernstutrophils/100 WBC (Bld)74.4 %Tnirmt82.0-75.0The [facility] HospitalComment on above:Performed By: #### CBC #### [facility] [address] [place] [address] Dr. Zeke Sonlet mean volume (Bld) [Entitic vol]8.4 fLCritically low 9.5-13.5The [facility] HospitalComment on above:Performed By: #### CBC #### [facility] [address] [place] [address] Dr. Zeke GarciaPLT328 103/hnSigltq021-766Oko [facility] HospitalComment on above: Performed By: #### CBC #### [facility] [address] [place] [address] Dr. Zeke GarciaRBC3.94 106/ulCritically low4.20-5.40The [facility] on above:Performed By: #### CBC #### [facility] [address] [place] [address] Dr. Zeke GarciaWBC7.5 103/ulNormal4.0-11.0The [facility] HospitalComment on above: Performed By: #### CBC #### [facility] [address] [place] [address] Dr. Zeke Olivas-DIMERon 18-48-3865H-DIMER2.47 mg/L FEUCritically high<=0.59The [facility]Com[facility] on above:Performed By: #### DDIM #### [facility] [address] [place] [address] Dr. Ze[address] CanelaDIMER COMMENTSSEE St[facility] on above:Result Comment: Increases in D-Dimer [...] generalized hospitalization. Performed By: #### DDIM #### [facility] [address] [place] [address] Dr. Zeke GarciaPROF CHEM 8 (BAS METB)on 28-34-4279Ppxhm gap [Moles/Vol]11.7 mmol/LNormalThe [facility] on above:Performed By: #### BMP #### [facility] [address] [place] [address] Dr. Zeke GarciaCalcium [Mass/Vol]9.3 mg/dLNormal8.5-10.1[facility] Comment on above:Performed By: #### BMP #### [facility] [address] [address] [address] Zeke GarciaChloride [Moles/Vol]100 mmol/VMbjyoc45-229Skv [facility] Comment on above:Performed By: #### BMP #### [facility] [address] [place] [address] Dr. Zeke GarciaCO2 [Moles/Vol]29.1 mmol/SBqolog14.0-32.0The [facility] Comment on above:Performed By: #### BMP #### [facility] [address] [place] [address] Dr. Zeke GarciaCreatinine [Mass/Vol]0.58 mg/dLNormal0.55-1.02The [facility] HospitalComment on above:Performed By: #### BMP #### [facility] [address] [place] [address] Dr. Alanis ChangEGFR-AF LIBYAN>60Normal>=60The [facility] HospitalComment on above:Performed By: #### BMP #### [facility] [address] [place] [address] Dr. Zeke HodgeGFR-NON AF LIBYAN>60Normal>=60The [facility] HospitalComment on above:Performed By: #### BMP #### [facility] [address] [place] [address] Dr. Zeke GarciaGlucose [Mass/Vol]128 mg/dLCritically mbne53-904Pnt [facility] HospitalComment on above:Performed By: #### BMP #### [facility] [address] [place] [address] Dr. Zeke GarciaPotassium [Moles/Vol]3.8 mmol/LNormal3.5-5.1The [facility] Comment on above:Performed By: #### BMP #### [facility] [address] [place] [address] Dr. Zeke GarciaSodium [Moles/Vol]137 mmol/QUztfyg301-910Qkv [facility] Comment on above:Performed By: #### BMP #### [facility] [address] [place] [address] Dr. Yilan ChangUrea nitrogen [Mass/Vol]11.0 mg/dLNormal7.0-18.0[facility] HospitalComment on above:Performed By: #### BMP #### [facility] [address] [place], [place] [address] Dr. Zeke Cartwright nitrogen/Creatinine [Mass ratio]19.0 mg/mgNoDoctors HospitalComment on above:Performed By: #### BMP #### [facility] [address] [place], [place] [address] Dr. Zeke Ball AROLDO DOP LEG RTon [id number] AROLDO DOP LEG RTEXAMINATION: US AROLDO DOP LEG RT HISTORY: Pain ; right foot swelling COMPARISON: No relevant comparison available. FINDINGS: REGION: Right lower extremity THROMBI: None. COMPRESSIBILITY: Normal compressibility. FLOW: Normal waveform and antegrade flow between 5 and 20 cm/s. OTHER: None. IMPRESSION: 1. No deep vein thrombus within right lower extremity. Electronically authenticated by: THOMAS DEMARCO Date: 2022-08-11 10:21[facility] CenterXR FOOT RT MIN 3 VIEWSon [id number] FOOT RT MIN 3 VIEWSEXAM: Right foot [...] Electronically authenticated by: PRIYA SCHNEIDER Date: 2022-08-11 09:33[facility] Medical CenterGlucose Glucometer (BldC) [Mass/Vol]Ordered By: Willie Garcia on 33-48-1559Vfqvctd [Mass/Vol]92 mg/dLTogus Va Medical CenterComment on above:Random Glucose Reference Range is dependent on time and content of last meal. Glucose of more than 200 mg/dL in a nonstressed, ambulatory subject supports the diagnosis of Diabetes Mellitus.COVID-19 Positive/NegativeOrdered By: Willie Garcia on 26-23-5058LBHB-CoV-2 (COVID-19) N gene DAVID+probe Ql (Resp) NegativeNegativeTogus Va Medical CenterComment on above:Testing for SARS-CoV-2 by RT-PCRThis test was developed and its performance characteristics determined by [employer] ([employer]) and validated at the [facility]. This test has not been FDA cleared [...] (Bld) [#/Vol] Ordered By: Willie Garcia on 02-43-8863Puvulzvnw (Bld) [#/Vol]0.0 10*3/uL0.0-0.2 [facility] CenterBasophils/100 WBC Auto (Bld)Ordered By: Willie Garcia on 69-80-4613Bsdkdvhoe/100 WBC (Bld)0.3 %.[facility] Medical CenterCreatinine and Glomerular filtration rate.predicted panel (S/P/Bld)Ordered By: Willie Garcia on 49-76-5663Lssolspegj [Mass/Vol]0.69 mg/dL0.44-1.03[facility] Medical CenterEosinophils Auto (Bld) [#/Vol]Ordered By: Willie Garcia on 86-18-1732Xietjasascj (Bld) [#/Vol]0.0 10*3/uL0.0-0.45[facility] Medical CenterEosinophils/100 WBC Auto (Bld)Ordered By: Willie Garcia on 07-12-2022 Eosinophils/100 WBC (Bld)0.1 %.[facility] Medical CenterErythrocyte distribution width Auto (RBC) [Ratio]Ordered By: Willie Garcia on 07-12-2022 Erythrocyte distribution width (RBC) [Ratio]18.9 %11.9-15.3FMercy Health – The Jewish HospitalEstimated glomerular filtration rate (GFR) non- Ordered By: Willie Garcia on 91-28-8219YYQ/1.73 sq M.predicted among non-blacks MDRD (S/P/Bld) [Vol rate/Area]> 60 mL/MinTogus Va Medical Center Hematocrit Auto (Bld) [Volume fraction]Ordered By: Willie Garcia on 07-12-2022 Hematocrit (Bld) [Volume fraction]37.5 %34.0-46.4FMercy Health – The Jewish HospitalHemoglobin [Mass/volume] in BloodOrdered By: Willie Garcia on 07-12-2022 Hemoglobin (Bld) [Mass/Vol]12.2 g/dL11.8-15.4FMercy Health – The Jewish Hospital Laboratory - Hematology and Cell countsOrdered By: Willie Garcia on 07-12-2022 Nucleated RBC/100 WBC (Bld) [Ratio]0.1 %0-0.5FMercy Health – The Jewish Hospital Leukocytes [#/volume] in Blood by Automated countOrdered By: Willie Garcia on 83-31-1990WPF (Bld) [#/Vol]8.2 10*3/uL4.5-11.0[facility] Lymphocytes Auto (Bld) [#/Vol]Ordered By: Willie Garcia on 59-57-3688Nirtavatpkh (Bld) [#/Vol]0.6 10*3/uL1.00-4.8[facility] Medical CenterLymphocytes/100 WBC Auto (Bld)Ordered By: Willie Garcia on 48-58-1424Rfdonbbhfnx/100 WBC (Bld)7.4 %.[facility] Auto (RBC) [Entitic mass]Ordered By: Willie Garcia on 14-88-5054HUE (RBC) [Entitic mass]30.5 pg24.7-34.3FKettering Health Greene MemorialHC Auto (RBC) [Mass/Vol]Ordered By: Willie Garcia on 28-87-5771ZXIM (RBC) [Mass/Vol]32.5 g/dL32.0-35.0[facility] Medical CenterMCV Auto (RBC) [Entitic vol]Ordered By: Willie Garcia on 84-86-2334TUY (RBC) [Entitic vol] 94.1 bV94-764FynjpujacTogus Va Medical CenterMonocytes Auto (Bld) [#/Vol] Ordered By: Willie Garcia on 73-30-2761Trmaxkjdd (Bld) [#/Vol]0.1 10*3/uL0.0-0.8 [facility] CenterMonocytes/100 WBC Auto (Bld)Ordered By: Willie Garcia on 36-64-7198Cfzkfynzo/100 WBC (Bld)1.1 %.[facility] Medical CenterNeutrophils Auto (Bld) [#/Vol]Ordered By: Willie Garcia on 07-12-2022 Neutrophils (Bld) [#/Vol]7.4 10*3/uL1.8-7.7FMercy Health – The Jewish Hospital Neutrophils/100 WBC Auto (Bld)Ordered By: Willie Garcia on 07-12-2022 Neutrophils/100 WBC (Bld)91.1 %.[facility] Medical CenterNo Panel InformationOrdered By: Willie Garcia on 86-13-0075Yfmjelmsi GFR ()> 60 mL/MinTogus Va Medical CenterComment on above:GFR estimated reference range: According to KDOQI guidelines, <60 ml/min/1.73m2 is sufficient todiagnose a patient with chronic kidney disease.Pharmacy Creatinine Clearance (ChemN/[facility] Medical CenterPlatelet mean volume Auto (Bld) [Entitic vol]Ordered By: Willie Garcia on 29-43-3542Scjgnphs mean volume (Bld) [Entitic vol]6.8 fL6.3-10.7FMercy Health – The Jewish HospitalPlatelets Auto (Bld) [#/Vol]Ordered By: Willie Garcia on 10-24-2583Gviaqazed (Bld) [#/Vol]283 10*3/uL 150-450T[facility] Va Medical CenterRBC Auto (Bld) [#/Vol]Ordered By: Willie Garcia on 44-30-5586JCL (Bld) [#/Vol]3.99 10*6/uL3.60-5.00[facility] Hospitalerum or plasma anion gap determinationOrdered By: Willie Garcia on 80-17-9656Dxqwm gap [Moles/Vol]11.3 mmol/L6.0-15.0[facility] Hospitalerum or plasma calcium measurement (mass/volume)Ordered By: Willie Garcia on 89-53-1937Xdmsvdu [Mass/Vol]9.4 mg/dL8.2-10.2FMercy Health – The [facility] Serum or plasma chloride measurement (moles/volume)Ordered By: Willie Garcia on 16-64-2124Ofhafoep [Moles/Vol]102 mmol/Y67-093RywaejwmrTogus Va Medical Center Serum or plasma glucose measurement (mass/volume)Ordered By: Willie Garcia on 23-28-8422Qxywxsb [Mass/Vol]149 mg/fX68-137KyowsfcxkTogus Va Medical Center Comment on above:ADA recommended reference rangeRandom Glucose Reference Range is dependent on time and content of last meal. Glucose of more than 200 mg/dL in a nonstressed, ambulatory subject supports the diagnosisof Diabetes Mellitus. Serum or plasma potassium measurement (moles/volume)Ordered By: Willie Garcia on 09-30-8607Osqopwjgn [Moles/Vol]4.2 mmol/L3.5-5.1FTrinity Health System East Campuserum or plasma sodium measurement (moles/volume)Ordered By: Willie Garcia on 68-87-0962Nzlxay [Moles/Vol]135 mmol/A859-146AyydnmcbhTogus Va Medical Center Serum or plasma total carbon dioxide measurement (moles/volume)Ordered By: Willie Garcia on 39-69-3529ZA0 [Moles/Vol]25.9 mmol/L22.0-30.0[facility] Hospitalerum or plasma urea nitrogen measurement (mass/volume)Ordered By: Willie Garcia on 49-05-9982Eepn nitrogen [Mass/Vol]14 mg/dL9-23T[facility] Medical CenterC3 and C4 COMPLEMENTon 71-42-6956Sdrynxytbl C3, Pbzwz709 mg/dL Oluacp72-210ZmrBethesda North HospitalComment on above:Performed By: #### BMP #### [facility] [address] [place] [address] Dr. Zeke Guerra C4, Serum29 mg/jIGrmzse48-53Uul [facility] Comment on above:Performed By: #### BMP #### [facility] [address] [place] [address] Dr. Zeke Guerra TOTAL (CH50)on 70-02-2798Yprxtiywmf, Total (CH50)>60 Normal>41The [facility] HospitalComment on above:Result Comment: Age Male Female [...] of range values.Performed By: #### SEDR #### [facility] [address] [place] [address] Dr. Zeke Austin AUTO DIFFon 39-87-0048WBRI #0.1 103/ulNormal0.0-0.1[facility] North HospitalComment on above:Performed By: #### SEDR #### [facility] [address] [place] [address] Dr. Zeke GarciaBasophils/100 WBC (Bld)0.6 %Normal0.2-2.0[facility] Comment on above:Performed By: #### SEDR #### [facility] [address] [place] [address] Dr. Zeke Thacker #0.2 103/ulNormal0.0-0.7The [facility] HospitalComment on above: Performed By: #### SEDR #### [facility] [address] [place] [address] Dr. Zeke Hodgeosinophils/100 WBC (Bld)2.6 %Normal0.9-7.0The [facility] Comment on above:Performed By: #### SEDR #### [facility] [address] [place] [address] Dr. Zeke Hodgerythrocyte distribution width (RBC) [Ratio]13.2 %Rkfrpi29.0-15.0 The [facility] HospitalComment on above:Performed By: #### SEDR #### [facility] [address] [place] [address] Dr. Zeke GarciaHematocrit (Bld) [Volume fraction]38.9 %Jujvhi64.0-48.0The [facility] HospitalComment on above:Performed By: #### SEDR #### [facility] [address] [place] [address] Dr. Zeke GarciaHemoglobin (Bld) [Mass/Vol]12.9 g/fRFyvtmn40.0-16.0The [facility] HospitalComment on above:Performed By: #### SEDR #### [facility] [address] [place] [address] Dr. Zeke Mahan #0.02 10e3/ulNormal0.00-0.03The [facility] HospitalComment on above:Performed By: #### SEDR #### [facility] [address] [place] [address] Dr. Zeke Mahan %0.3 %Normal0.0-0.5The [facility] HospitalComment on above: Performed By: #### SEDR #### [facility] [address] [place] [address] Dr. Zeke StallingsMPH #1.5 103/ulNormal1.2-3.8The [facility] HospitalComment on above:Performed By: #### SEDR #### [facility] [address] [place] [address] Dr. Zeke Stallingsmphocytes/100 WBC (Bld)19.3 %Critically low20.5-60.0The [facility] HospitalComapex [facility] center on above:Performed By: #### SEDR #### [facility] [address] [place] [address] Dr. Zeke CalderonUAL DIFF REQNONormalThe [facility] HospitalComment on above: Performed By: #### SEDR #### [facility] [address] [address] [address] Zeke ChristensenH (RBC) [Entitic mass]32.7 vlHxmegw42.7-34.0The [facility] HospitalComment on above:Performed By: #### SEDR #### [facility] [address] [place] [address] Dr. Zeke Christensen (RBC) [Mass/Vol]33.2 g/tCMddhtw55.9-35.2The [facility] HospitalComment on above:Performed By: #### SEDR #### [facility] [address] [place] [address] Dr. Zeke ChristensenV (RBC) [Entitic vol]98.5 bNUtadqb17.0-99.0The [facility] HospitalComment on above:Performed By: #### SEDR #### [facility] [address] [place] [address] Dr. Zeke Alaniz #0.5 103/ulNormal0.3-0.8The [facility] HospitalComment on above:Performed By: #### SEDR #### [facility] [address] [place] [address] Dr. Zeke Cerdaocytes/100 WBC (Bld)5.8 %Normal1.7-12.0The [facility] Comment on above:Performed By: #### SEDR #### [facility] [address] [place] [address] Dr. Zeke ErnstUT #5.7 103/ulNormal1.4-6.5The [facility] HospitalComment on above:Performed By: #### SEDR #### [facility] [address] [place] [address] Dr. Zeke Ernstutrophils/100 WBC (Bld)71.4 %Uhmdzj23.0-75.0The [facility] HospitalComment on above:Performed By: #### SEDR #### [facility] [address] [place] [address] Dr. Zeke Sonlet mean volume (Bld) [Entitic vol]8.7 fLCritically low 9.5-13.5The [facility] HospitalComment on above:Performed By: #### SEDR #### [facility] [address] [place] [address] Dr. Zeke GarciaPLT285 103/iwCqbceu733-689Ybp [facility] HospitalComment on above: Performed By: #### SEDR #### [facility] [address] [place] [address] Dr. Zeke GarciaRBC3.95 106/ulCritically low4.20-5.40The [facility] HospitalComment on above:Performed By: #### SEDR #### [facility] [address] [place] [address] Dr. Zeke GarciaWBC8.0 103/ulNormal4.0-11.0The [facility] HospitalComment on above: Performed By: #### SEDR #### [facility] [address] [place] [address] Dr. Zeke Angeles 09-64-1373KCX [Mass/Vol]mg/LNormal<=1.0The [facility] HospitalComment on above:Performed By: #### BMP #### [facility] [address] [place] [address] Dr. Zeke Kent 14(COMP METB)on 03-79-3609Odjdrxb [Mass/Vol]3.7 g/dLNormal 3.4-5.0The [facility] HospitalComment on above:Performed By: #### BMP #### [facility] [address] [place] [address] Dr. Zeke GarciaAlbumin/Globulin [Mass ratio]1.1 {ratio}NormalThe [facility] HospitalComment on above:Performed By: #### BMP #### [facility] [address] [place] [address] Dr. Zeke Galo [Catalytic activity/Vol]121 U/LCritically pxer72-113Kuw [facility] HospitalComment on above:Performed By: #### BMP #### [facility] [address] [place] [address] Dr. Zeke Dorantes [Catalytic activity/Vol]26 U/QQnneui79-30Aqv [facility] HospitalComment on above:Performed By: #### BMP #### [facility] [address] [address] [address] Zeke Cintronon gap [Moles/Vol]10.1 mmol/LNormalBethesda North Hospital Comment on above:Performed By: #### BMP #### [facility] [address] [address] [address] Zeke GarciaAST [Catalytic activity/Vol]19 U/VZoayif67-63Ydo [facility] HospitalComment on above:Performed By: #### BMP #### [facility] [address] [address] [address] Zeke GarciaBilirubin [Mass/Vol]0.6 mg/dLNormal0.2-1.0[facility] Comment on above:Performed By: #### BMP #### [facility] [address] [address] [address] Zeke GarciaCalcium [Mass/Vol]9.5 mg/dLNormal8.5-10.1[facility] Comment on above:Performed By: #### BMP #### [facility] [address] [address] [address] Zeke GarciaChloride [Moles/Vol]103 mmol/LSwzntc75-161NokBethesda North Hospital Comment on above:Performed By: #### BMP #### [facility] [address] [address] [address] Zeke GarciaCO2 [Moles/Vol]28.9 mmol/AUocelu90.0-32.0[facility] Comment on above:Performed By: #### BMP #### [facility] [address] [address] [address] Zeke GarciaCreatinine [Mass/Vol]0.58 mg/dLNormal0.55-1.02The [facility] HospitalComment on above:Performed By: #### BMP #### [facility] [address] [address] [address] Alanis ChangEGFR-AF LIBYAN>60Normal>=60The [facility] HospitalComment on above:Performed By: #### BMP #### [facility] [address] [address] [address] Zeke HodgeGFR-NON AF LIBYAN>60Normal>=60The [facility] HospitalComment on above:Performed By: #### BMP #### [facility] [address] [address] [address] Zeke GarciaGlobulin (S) [Mass/Vol]3.3 g/dLNormSelect Medical Specialty Hospital - AkronComment on above:Performed By: #### BMP #### [facility] [address] [address] [address] Zeke GarciaGlucose [Mass/Vol]97 mg/qQQxeevw58-278Crt [facility] Comment on above:Performed By: #### BMP #### [facility] [address] [place] [address] Dr. Zeke GarciaPotassium [Moles/Vol]4.0 mmol/LNormal3.5-5.1The [facility] Comment on above:Performed By: #### BMP #### [facility] [address] [address] [address] Zeke GarciaProtein [Mass/Vol]7.0 g/dLNormal6.4-8.2The [facility] Comment on above:Performed By: #### BMP #### [facility] [address] [place] [address] Dr. Zeke GarciaSodium [Moles/Vol]138 mmol/OLohsur726-846Ocv [facility] Comment on above:Performed By: #### BMP #### [facility] [address] [address] [address] Zeke GarciaUrea nitrogen [Mass/Vol]15.0 mg/dLNormal7.0-18.0The [facility] HospitalComment on above:Performed By: #### BMP #### [facility] [address] [address] [address] Zeke GarciaUrea nitrogen/Creatinine [Mass ratio]25.9 mg/mgNormSelect Medical Specialty Hospital - AkronComment on above:Performed By: #### BMP #### [facility] [address] [address] [address] Zeke Salmeron RATE WESTERGRENon 74-02-1713VSI RATE11 mm/hrNormal<=30The [facility] HospitalComment on above:Performed By: #### SEDR #### [facility] [address] [address] [address] Zeke Aguiar RANDOM W/MICROSCOPICon 80-86-0798KEOBDQVHKUVC SEENNormalNONE SEENBethesda North HospitalComment on above:Performed By: #### BMP #### [facility] [address] [address] [address] Zeke GarciaBilirubin Ql (U)NegativeNormalNEGATIVEThe [facility] Comment on above:Performed By: #### BMP #### [facility] [address] [address] [address] Zeke GarciaCASTNONE SEENNormalNONE SEENBethesda North HospitalComment on above:Performed By: #### BMP #### [facility] [address] [address] [address] Zeke Leivaarity (U)CLEARNormalCLEARBethesda North HospitalComment on above: Performed By: #### BMP #### [facility] [address] [address] [address] Zeke Gamez (U)LT. YELLOWNormalYELLOWBethesda North HospitalComment on above:Performed By: #### BMP #### [facility] [address] [address] [address] Zeke GarciaCrystals LM Nom (Urine sed)NONE SEENNormalNONE SEENBethesda North HospitalComment on above:Performed By: #### BMP #### [facility] [address] [address] [address] Alanis ChangEpithelial cells LM Ql (Urine sed)RARENormalNONE SEEN /RAREThe [facility] HospitalComment on above:Performed By: #### BMP #### [facility] [address] [address] [address] Yilan ChangGlucose Ql (U)NegativeNormalNEGATIVEBethesda North HospitalComment on above:Performed By: #### BMP #### [facility] [address] [address] [address] Zeke GarciaHemoglobin Ql (U)TRACE-INTACTAbnormalNEGATIVEBethesda North HospitalComment on above:Performed By: #### BMP #### [facility] [address] [address] [address] Zeke GarciaKetones Ql (U)NegativeNormalNEGATIVENorwalk Memorial Hospital HospitalComment on above:Performed By: #### BMP #### [facility] [address] [address] [address] Zeke GarciaLEUKOCYTESNegativeNormalNEGATIVEBethesda North HospitalComment on above:Performed By: #### BMP #### [facility] [address] [place] [address] Dr. Zeke GarciaMUCOUSNONE SEENNormalNONE SEENBethesda North HospitalComment on above:Performed By: #### BMP #### [facility] [address] [place] [address] Dr. Zeke GarciaNitrite Ql (U)NegativeNormalNEGATIVEBethesda North HospitalComment on above:Performed By: #### BMP #### [facility] [address] [place] [address] Dr. Zeke GarciapH (U)6.0 [pH]Normal5-9The [facility] HospitalComment on above: Performed By: #### BMP #### [facility] [address] [place] [address] Dr. Zeke GarciaXvdyxJCM6-2Piryem9-4Nkc [facility] HospitalComment on above:Performed By: #### BMP #### [facility] [address] [place] [address] Dr. Zeke GarciaSPEC GRAVITY<=1.723Esqofrwc2.005-<=1.025The [facility] on above:Performed By: #### BMP #### [facility] [address] [place] [address] Dr. Zeke Aguiar PROTEINNegativeNormalNEGATIVE/ TRACEThe [facility] Comment on above:Performed By: #### BMP #### [facility] [address] [address] [address] Zeke Pachecobilkalpana Qn (U)0.2 {Lin'U}/dLNormal0.2 - 1.0The [facility] HospitalComment on above:Performed By: #### BMP #### [facility] [address] [place], [place] [address] Dr. Zeke LopezBCNONKy SEENNormalNONE SEENThe [facility] HospitalComment on above: Performed By: #### BMP #### [facility] [address] [address] [address] Zeke GarciaXR Shoulder Complete Right*on 77-15-7122HR Shoulder Complete Right*HISTORY: Right arm radiation, acute [...] signed by Greg Vargas on 02/01/2022 1501NormalNorthern Lawrence+Memorial HospitalXR Spine Cervical Complete*on 17-84-2036ZR Spine Cervical Complete*HISTORY: Radiating right arm pain [...] signed by Greg Vargas on 02/01/2022 1455NormalNorthern [facility] Island Medical Universal Health ServicesXR HAND ANA MIN 3Von 98-56-6459TK HAND ANA MIN 3V EXAMINATION: XR HAND ANA MIN 3V, XR WRIST ANA MIN 3 V HISTORY: Hand pain COMPARISON: No relevant comparison available. FINDINGS: RIGHT FINDINGS: BONES: No acute fracture or dislocation. Moderate subchondral cystic changes most significant throughout the carpus and along the margins of the phalanges and metacarpals. There is joint space narrowing and marginal osteophyte formation with ywap-wa-lyph articulation of the first and second metacarpal [...] Electronically authenticated by: ADALI CAICEDO Date: 2021-11-19 07:50NoDoctors HospitalC3 and C4 COMPLEMENTon 86-03-9030Mfocmbgdwy C3, Kqwlk551 mg/dL Pdumpm71-407BbmBethesda North HospitalComment on above:Performed By: #### CSUITE #### [facility] [address] [address] [address] Zeke GarciaComplement C4, Serum32 mg/oDYxnyfw53-90ZceBethesda North Hospital Comment on above:Performed By: #### CSUITE #### [facility] [address] [address] [address] Zeke GarciaCOMPLEMENT TOTAL (CH50)on 44-77-2649Utexgmbimu, Total (CH50)>60 Normal>41The [facility] HospitalComment on above:Result Comment: Age Male Female [...] of range values.Performed By: #### SEDR #### [facility] [address] [place] [address] Dr. Zeke Austin AUTO DIFFon 54-35-7021AOHX #0.1 103/ulNormal0.0-0.1The [facility] HospitalComment on above:Performed By: #### BMP #### [facility] [address] [place] [address] Dr. Zeke GarciaBasophils/100 WBC (Bld)0.9 %Normal0.2-2.0[facility] Comment on above:Performed By: #### BMP #### [facility] [address] [place] [address] Dr. Zeke Thacker #0.1 103/ulNormal0.0-0.7The [facility] HospitalComment on above: Performed By: #### BMP #### [facility] [address] [place] [address] Dr. Zeke Hodgeosinophils/100 WBC (Bld)1.7 %Normal0.9-7.0[facility] Comment on above:Performed By: #### BMP #### [facility] [address] [place] [address] Dr. Zeke Hodgerythrocyte distribution width (RBC) [Ratio]13.2 %Fekord88.0-15.0 The [facility] HospitalComment on above:Performed By: #### BMP #### [facility] [address] [place] [address] Dr. Zeke GarciaHematocrit (Bld) [Volume fraction]41.1 %Iwygco31.0-48.0The [facility] HospitalComment on above:Performed By: #### BMP #### [facility] [address] [address] [address] Zeke GarciaHemoglobin (Bld) [Mass/Vol]13.7 g/rWHlbujf44.0-16.0The [facility] HospitalComment on above:Performed By: #### BMP #### [facility] [address] [place] [address] Dr. Zeke Mahan #0.02 10e3/ulNormal0.00-0.03The [facility] HospitalComment on above:Performed By: #### BMP #### [facility] [address] [place] [address] Dr. Zeke Mahan %0.3 %Normal0.0-0.5The [facility] HospitalComment on above: Performed By: #### BMP #### [facility] [address] [place] [address] Dr. Zeke Scruggs #1.7 103/ulNormal1.2-3.8The [facility] HospitalComment on above:Performed By: #### BMP #### [facility] [address] [place] [address] Dr. Zeke Beckhocytes/100 WBC (Bld)26.8 %Frysba54.5-60.0The [facility] HospitalComapex medical center on above:Performed By: #### BMP #### [facility] [address] [place] [address] Dr. Zeke CalderonUAL DIFF REQNONormalThe [facility] HospitalComment on above: Performed By: #### BMP #### [facility] [address] [place] [address] Dr. Zeke Christensen (RBC) [Entitic mass]33.1 hgPxtktp39.7-34.0The [facility] HospitalComment on above:Performed By: #### BMP #### [facility] [address] [place] [address] Dr. Zeke Christensen (RBC) [Mass/Vol]33.3 g/kJFrcqbr11.9-35.2The [facility] HospitalComment on above:Performed By: #### BMP #### [facility] [address] [address] [address] Zeke ChristensenV (RBC) [Entitic vol]99.3 fLCritically high81.0-99.0The [facility] HospitalComment on above:Performed By: #### BMP #### [facility] [address] [place] [address] Dr. Zeke Alaniz #0.3 103/ulNormal0.3-0.8The [facility] HospitalComment on above:Performed By: #### BMP #### [facility] [address] [place] [address] Dr. Zeke Cerdaocytes/100 WBC (Bld)5.3 %Normal1.7-12.0The [facility] Comment on above:Performed By: #### BMP #### [facility] [address] [place] [address] Dr. Zeke Dick #4.2 103/ulNormal1.4-6.5The [facility] HospitalComment on above:Performed By: #### BMP #### [facility] [address] [place] [address] Dr. Zeke Ernstutrophils/100 WBC (Bld)65.0 %Rasbmt57.0-75.0The [facility] HospitalComment on above:Performed By: #### BMP #### [facility] [address] [place] [address] Dr. Zeke Sonlet mean volume (Bld) [Entitic vol]9.2 fLCritically low 9.5-13.5The [facility] HospitalComment on above:Performed By: #### BMP #### [facility] [address] [place] [address] Dr. Zeke GuevaraT272 103/igKvxmpy602-462Fkz [facility] HospitalComment on above: Performed By: #### BMP #### [facility] [address] [place] [address] Dr. Zeke GarciaRBC4.14 106/ulCritically low4.20-5.40The [facility] HospitalComment on above:Performed By: #### BMP #### [facility] [address] [place] [address] Dr. Zeke GarciaWBC6.5 103/ulNormal4.0-11.0The [facility] HospitalComment on above: Performed By: #### BMP #### [facility] [address] [place] [address] Dr. Zeek Angeles 86-99-9724RGB [Mass/Vol]mg/LNormal<=1.0The [facility] HospitalComment on above:Performed By: #### CRP, CMP #### [facility] [address] [place] [address] Dr. Zeke Kent 14(COMP METB)on 07-82-0506Azhqljn [Mass/Vol]3.7 g/dLNormal 3.5-5.0The [facility] HospitalComment on above:Performed By: #### CRP, CMP #### [facility] [address] [place] [address] Dr. Zeke GarciaAlbumin/Globulin [Mass ratio]1.0 {ratio}NormalThe [facility]wood HospitalComment on above:Performed By: #### CRP, CMP #### [facility] [address] [place] [address] Dr. Zeke Galo [Catalytic activity/Vol]111 U/SGenanx84-132Hil Ket[facility] Greene Memorialment on above:Performed By: #### CRP, CMP #### [facility] [address] [place] [address] Dr. Zeke Dorantes [Catalytic activity/Vol]28 U/LNormal9-52The [facility] Comment on above:Performed By: #### CRP, CMP #### [facility] [address] [place] [address] Dr. Zeke Marin gap [Moles/Vol]10.8 mmol/LNormalThe [facility] Comment on above:Performed By: #### CRP, CMP #### [facility] [address] [place] [address] Dr. Yilan ChangAST [Catalytic activity/Vol]20 U/FMgxnat97-34Acr [facility] HospitalComment on above:Performed By: #### CRP, CMP #### [facility] [address] [place] [address] Dr. Zeke GarciaBilirubin [Mass/Vol]0.6 mg/dLNormal0.2-1.3The [facility] Comment on above:Performed By: #### CRP, CMP #### [facility] [address] [place] [address] Dr. Zeke GarciaCalcium [Mass/Vol]9.7 mg/dLNormal8.4-10.2The [facility] Comment on above:Performed By: #### CRP, CMP #### [facility] [address] [place] [address] Dr. Zeke GarciaChloride [Moles/Vol]102 mmol/DXmknxt99-400Hgp [facility] Comment on above:Performed By: #### CRP, CMP #### [facility] [address] [place] [address] Dr. Zeke GarciaCO2 [Moles/Vol]31.1 mmol/LCritically high22.0-30.0The [facility] HospitalComment on above:Performed By: #### CRP, CMP #### [facility] [address] [place] [address] Dr. Zeke GarciaCreatinine [Mass/Vol]0.56 mg/dLNormal0.52-1.04The [facility] HospitalComment on above:Performed By: #### CRP, CMP #### [facility] [address] [place] [address] Dr. Zeke HodgeGFR-AF LIBYAN>60Normal>=60The [facility] HospitalComment on above:Performed By: #### CRP, CMP #### [facility] [address] [place] [address] Dr. Zeke HodgeGFR-NON AF LIBYAN>60Normal>=60The [facility] HospitalComment on above:Performed By: #### CRP, CMP #### [facility] [address] [place] [address] Dr. Zeke GarciaGlobulin (S) [Mass/Vol]3.7 g/dLNormSelect Medical Specialty Hospital - AkronComment on above:Performed By: #### CRP, CMP #### [facility] [address] [address] [address] Zeke GarciaGlucose [Mass/Vol]99 mg/aSXhzrmk80-731QnxBethesda North Hospital Comment on above:Performed By: #### CRP, CMP #### [facility] [address] [address] [address] Zeke GarciaPotassium [Moles/Vol]3.9 mmol/LNormal3.4-5.0The [facility] Comment on above:Performed By: #### CRP, CMP #### [facility] [address] [place] [address] Dr. Zeke GarciaProtein [Mass/Vol]7.4 g/dLNormal6.1-8.2[facility] Comment on above:Performed By: #### CRP, CMP #### [facility] [address] [place] [address] Dr. Zeke GarciaSodium [Moles/Vol]140 mmol/YFcdnic959-370Pzn [facility] Comment on above:Performed By: #### CRP, CMP #### [facility] [address] [place] [address] Dr. Zeke GarciaUrea nitrogen [Mass/Vol]13.0 mg/dLNormal7.0-17.0The Parkwood HospitalComment on above:Performed By: #### CRP, CMP #### [facility] [address] [place] [address] Dr. Zeke GarciaUrea nitrogen/Creatinine [Mass ratio]23.2 mg/mgNoDoctors HospitalComment on above:Performed By: #### CRP, CMP #### [facility] [address] [place] [address] Dr. Zeke Salmeron RATE WESTERGRENon 32-04-9877XIT RATE11 mm/hrNormal<=30The [facility]wood HospitalComment on above:Performed By: #### SEDR #### [facility] [address] [address] [address] Zeke Aguiar RANDOM W/MICROSCOPICon 93-53-8531HEYEBGDFLEGH SEENNormalNONE SEENBethesda North HospitalComment on above:Performed By: #### SEDR #### [facility] [address] [address] [address] Zeke GarciaBilirubin Ql (U)NegativeNormalNEGATIVEKettering Health Main Campus on above:Performed By: #### SEDR #### [facility] [address] [address] [address] Zeke GarciaCASTNONE SEENNormalNONE SEENBethesda North HospitalComment on above:Performed By: #### SEDR #### [facility] [address] [place] [address] Dr. Zeke GarciaClarity (U)CLEARNormalCLEARBethesda North HospitalComment on above: Performed By: #### SEDR #### [facility] [address] [address] [address] Zeke Chualor (U)LT. YELLOWNormalYELLOWBethesda North HospitalComment on above:Performed By: #### SEDR #### [facility] [address] [place] [address] Dr. Zeke GarciaCrystals LM Nom (Urine sed)NONE SEENNormalNONE SEENBethesda North HospitalComment on above:Performed By: #### SEDR #### [facility] [address] [place] [address] Dr. Alanis ChangEpithelial cells LM Ql (Urine sed)RARENormalNONE SEEN /RAREBethesda North HospitalComment on above:Performed By: #### SEDR #### [facility] [address] [place] [address] Dr. Zeke GarciaGlucose Ql (U)NegativeNormalNEGATIVEBethesda North HospitalComment on above:Performed By: #### SEDR #### [facility] [address] [place] [address] Dr. Zeke GarciaHemoglobin Ql (U)TRACE-INTACTAbnormalNEGATIVEBethesda North HospitalComment on above:Performed By: #### SEDR #### [facility] [address] [address] [address] Zeke Fuentesones Ql (U)NegativeNormalNEGATIVEBethesda North HospitalComment on above:Performed By: #### SEDR #### [facility] [address] [address] [address] Zeke GarciaLEUKOCYTESNegativeNormalNEGATIVEThe Parkwood HospitalComment on above:Performed By: #### SEDR #### [facility] [address] [place] [address] Dr. Zeke GivensCOUSNONKy SEENNormalNONE SEENBethesda North HospitalComment on above:Performed By: #### SEDR #### [facility] [address] [place] [address] Dr. Zeke Currytrite Ql (U)NegativeNormalNEGATIVEBethesda North HospitalComment on above:Performed By: #### SEDR #### [facility] [address] [place] [address] Dr. Zeke GarciapH (U)6.0 [pH]Normal5-9Bethesda North HospitalComment on above: Performed By: #### SEDR #### [facility] [address] [place] [address] Dr. Zeke GarciaXueupQJV9-5Tkgxfs7-3Pvd [facility] HospitalComment on above:Performed By: #### SEDR #### [facility] [address] [place] [address] Dr. Zeke GarciaSPEC GRAVITY<=1.073Chdnvjtl6.005-<=1.025[facility] Comment on above:Performed By: #### SEDR #### [facility] [address] [place] [address] Dr. Zeke Aguiar PROTEINNegativeNormalNEGATIVE/ TRACEBethesda North Hospital Comment on above:Performed By: #### SEDR #### [facility] [address] [place] [address] Dr. Yilan ChangUrobilinogen Qn (U)0.2 {Lin'U}/dLNormal0.2 - 1.0The [facility] HospitalComment on above:Performed By: #### SEDR #### [facility] [address] [address] [address] Zeke GarciaWBCNONKy SEENNormalNONE SEENThe [facility]wood HospitalComment on above: Performed By: #### SEDR #### [facility] [address] [address] [address] Zeke GarciaAmbulatory Visit Summaryon 86-08-2838Zoqqzjuxpk Visit Summary DISHA DE LA GARZA :1950 Visit Date:10/18/2021 Ambulatory Visit Instructions Your Diagnosis Asymptomatic microscopic hematuria Other post-traumatic urethral stricture, female Urge incontinence Tests Performed Urnls Dip Stick Auto w/o Microscopy POC 91092 Your Care Team Attending Physician - Nate Mccoy MD, Ralph Bauer Primary Care Physician - MEETA JORDAN, WILL Leo What to do next Scheduled Follow-Up Appointments Sunday 8:30 AM EDT With: Nate Mccoy MD, Ralph Bauer [facility] CenterPatient Educationon 56-65-1734Wzulrcv EducationUrology Urinary Incontinence Urinary incontinence refers to [...] nerve stimulation). ? For women, using a quality engineer medical device to prevent urine leaks. This [...] after experiencing incontinence. General instructions ? Take thrj-kvw-isgaicp and prescription medicines only as (more content not included)...[facility] Office/Clinic Noteon 12-10-1600Bhkpeqb Office/Clinic NoteChief Complaint 6-8 week follow up This patient is a 71-year-old female with a history of hematuria. Her work-up included cystoscopy with CT scan, urine cytology and cystoscopy with urethral dilation. Other problems included urinary difficulties which have significantly improved since her dilation. She is here today for her first postop visit. [facility] Staff Pt is here today for 6-8 [...] urine and/or bladder capacity by US- non-imaging 00531 Urnls Dip Stick Auto w/o Microscopy POC 68530 2. Other post-traumatic urethral stricture, female (N35.028: Other post- traumatic urethral stricture, female) 3. Urge incontinence (N39.41: Urge incontinence) Pt wears a depends just in case of accidents but pt states her incontinence is intermittent. Ordered: Measure Post Void residual urine and/or bladder capacity by US- non-imaging 73685 Orders: ciprofloxacin, 500 mg = 1 tab(s), Oral, As Directed, Pt. to take 1 tab the day before procedure andthe 2nd tab the day of procedure once completed., # 2 tab(s), Refills(s) 0, Pharmacy: [facility], 160, cm, 08/02/21 8:30:00 EST, Height/Length Dosing, 78... Follow-up With When Contact Information Nate Mccoy MD, Ralph Bauer, URO Within 6 months [facility] [address], [place] [address] [phone] Additional Instructions: [facility] Patient Education Urinary Incontinence [...] history is unknown Immunizatio (more content not included)...[facility] Comment on above:Result Comment: Electronically Signed By: Ralph Sullivan Jr., MD\.br\Date and Time Signed: 10/18/2212:14 EST\.br\Electronically Co-Signed By: Cyndi Gonzalez MA\.br\Date and Time Co-Signed: 10/18/21 09:16 ESTConsent for Procedure/Surgeryon 14-34-9053Ppgkqyw for Procedure/Surgery [id number]:127NoOhioHealth Berger HospitalAmbulatory Clinical Summaryon 28-48-9041Lpklxnflyk Clinical Summary {89-63-52-70-at-9v-6g-68-40-ex-69-p7-06-55-20-0e}CD:[id number] [facility]-FairhillPatient Educationon 70-89-4343Omsbkal EducationMental and Behavioral Health Tobacco Use Disorder [...] withdrawal symptoms. NRT is available as: ? Bjhk-ipm-wisudue gums, lozenges, and skin patches. ? Prescription [...] for many people. General instructions ? Take ngdz-nbt-xanqvat and prescription medicines only as told by your health care provider. ? Check with your health care provider before taking any new prescription or pmzn-rzx-qfloggm medicines. ? Decide on a friend, family member, or smoking quit-line (such as 2-045-LAJE-NOW in the [place] thatyou can call or [...] condition may be diagn (more content not included)...[facility] Office/Clinic Noteon 58-96-2998Eytkkin Office/Clinic Note Chief Complaint Pt is here [...] urine The Urethra was dilated to: 30 Welsh with sounds. Specimens Removed: None Removal: Cystoscope is removed. The patient tolerated it well. Postoperative Information Patient is discharged home with antibiotic coverage. Follow up arranged for 6 weeks with [facility]. Assessment/Plan Cystoscopy with urethral dilation was performed. Hematuria work-up included CT scan that showed no abnormal findings. Urethral dilation was completed to 30 Welsh. Patient tolerated procedure withoutcomplication. Her urinary work-up [...] Oral, Daily Latanoprost 0.005% eye solution, 0 de (more content not included)...[facility]hillComment on above:Result Comment: Electronically Signed By: Ralph Sullivan Jr., MD\.br\Date and Time Signed: 08/29/2111:34 EST\.br\Electronically Co-Signed By: Laura Obrien MA\.br\Date and Time Co-Signed: 08/29/21 11:31 ESTLab Reportson 24-76-1187Owa [id number]:127[facility]hillRAD - CT Reporton 85-41-5154JZQ - CT Report [id number]:127[facility]FairhillLab Reportson 06-31-8072Bjl Reports [id number]#1.00CD:127[facility]FairhillAmbulatory Clinical Summaryon 39-07-7140Uisdqlgufy Clinical Summary {02-l9-sb-c5-72-ta-4w-15-0f-58-3t-9l-0b-cb-15-b7}CD:[id number] Berger HospitalPatient Educationon 10-20-1816Hadpklf EducationUrology Hematuria, Adult Hematuria is blood in [...] these instructions at home: Medicines ? Take iwdi-nmz-ugqwtys and prescription medicines only as told by [...] the blood stops without treatment. ? Take mfpe-onw-ixmveoo and prescription medicines only as told by your health care provider. ? Drink enough fluid to keep your urine clear or pale yellow. This information is not intended to replace advice given to you by your health care provider. Make sure you discuss any questions you have with your health care provider. Document Released: 09/03/2006 Document Revised: 01/28/2020 Document Reviewed: 10/06/2017 [employer] Patient Education ? 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 She is a cigarette smoker. She is here today to establish urologic care. 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 Tim [...] Urnls Dip Stick Auto w/o Microscopy POC 64155 Urology Procedure Order Urology Procedure Order 2. [...] # 2 tab(s), Refills(s) 0, Pharmacy: [facility], 160, cm, 08/02/21 8:30:00 EST, Height/Length Dosing, 78... Follow-up With When Contact Information Nate Mccoy MD, Ralph Bauer, URO [facility] [address], [place] [address]- Additional Instructions: schedule cysto/UD & CT AP w/ con Patient Education Hem (more content not included)...[facility]hillComment on above:Result Comment: Electronically Signed By: Ralph Sullivan Jr., MD\.br\Date and Time Signed: 08/02/2108:52 EST\.br\Electronically Co-Signed By: Saba George\.br\Date and Time Co-Signed: 08/02/21 08:47 EST Vital Signs Date TimeVital SignValuePerforming FhylhbiynMyoqsnum36-92-5529 14:54-0400Body krwtoi361 cmAntsaira Arevalo DPM Work Phone: [facility] CenterBimyiardti87-84-8019 14:54-0400Body mass index (BMI) [Ratio]31.89 kg/y2BnqsccnOsei Arevalo DPM Work Phone: [facility] CenterXyttnnhebc42-77-6788 14:54-0400Body knakeu72.65 kgOsei Arevalo DPM Work Phone: [facility] CenterXjskijwmfp30-73-4030 09:18-0400Body kg Will Tim MD Work Phone: [facility]07-24-2025 08:21-0400 Body vyyknx677.02 cmEerlin Tim MD Work Phone: [facility]07-24-2025 08:21-0400 Body mass index (BMI) [Ratio]32.1 kg/h4OoxqwwWill Tim MD Work Phone: [facility]07-24-2025 08:21-0400 Body .3 kgWill Tim MD Work Phone: [facility]07-02-2025 14:03-0400 Body xhrfan679 cmEdjake Tim MD Work Phone: [phone]07-02-2025 14:03-0400Body mass index (BMI) [Ratio]31.97 kg/z0PouheeWill Tim MD Work Phone: [phone]07-02-2025 14:03-0400Body wrqped64.87 kgWill Tim MD Work Phone: [phone] [place], [place] [address]108307-02-2025 14:03-0400Heart dwcc556 /min Will Tim MD Work Phone: [phone] [place], [place] 0[address]307-02-2025 14:03-4423VlC8% (BldA) [Mass fraction]96 %Will Tim MD Work Phone: [phone] [place], [place] [address]Jfryiaivyh28-14-6336 14:27-0400Body lzjuwu634 cm Osei Arevalo DPM Work Phone: [phone]05-28-2025 14:27-0400Body mass index (BMI) [Ratio]31.53 kg/u8TbbftefOsei Arevalo DPM Work Phone: [phone]05-28-2025 14:27-0400Body cqwnek98.74 kgOsei Arevalo DPM Work Phone: [phone]05-19-2025 09:17-0400Body ybgcwc562 cm Will Tim MD Work Phone: [phone] CenterBqxgkyvelm72-52-4006 09:17-0400Body mass index (BMI) [Ratio]31.53 kg/m6BpqvhkWill Tim MD Work Phone: [phone]05-19-2025 09:17-0400Body vrbcne46.74 kgWill Tim MD Work Phone: [phone])[address] [place], [place] [address]305-19-2025 09:17-0400Diastolic blood lkunfgid37 mm[Hg]Will Tim MD Work Phone: [phone] [place], [place] 0[address]305-19-2025 09:17-0400Heart rate92 /min Will Tim MD Work Phone: [phone] [place], [place] 0[address]305-19-2025 09:17-1939JsZ9% (BldA) [Mass fraction]99 %Will Tim MD Work Phone: [phone])[address] [place], [place] 0[address]305-19-2025 09:17-0400Systolic blood simshnqn167 mm[Hg]Will Tim MD Work Phone: [phone])[address] [place], [place] 0[address]302-19-2025 14:18-0500Body ukyvwm247 cm Osei Arevalo DPM Work Phone: [phone] [place], [place] 590[address]02-19-2025 14:18-0500Body mass index (BMI) [Ratio]30.82 kg/x1Rhbczzd Rusher DPM Work Phone: [phone]02-19-2025 14:18-0500Body kxhovk67.93 kgAnthony Rusher DPM Work Phone: [phone]02-10-2025 13:57-0500Body mbgaye367 cm Will Tim MD Work Phone: [phone] [place], [place] [address]302-10-2025 13:57-0500Body mass index (BMI) [Ratio]30.82 kg/j8CcaubdWill Tim MD Work Phone: [phone])[address] [place], [place] [address]302-10-2025 13:57-0500Body eluqch32.93 kgWill Tim MD Work Phone: [phone]11-19-2024 13:57-0500Body xmsiis496 cm Osei Arevalo DPM Work Phone: [phone] [address]-19-2024 13:57-0500Body mass index (BMI) [Ratio]30.82 kg/g3Pqouckb Rusher DPM Work Phone: [phone] [address]-19-2024 13:57-0500Body iadfcl15.93 kgOsei Arevalo DPM Work Phone: [facility] CenterXneacqzjei82-89-7143 08:28-0400Body upjxpn758 cm Will Tmi MD Work Phone: [facility] CenterYgqijtbsvg14-08-3861 08:28-0400Body mass index (BMI) [Ratio]30.82 kg/p9TtddedWill Tim MD Work Phone: [facility] CenterHbskxumhgh57-02-5389 08:28-0400Body daqqiv01.93 kgWill Tim MD Work Phone: [facility] CenterIybdjmzwkb24-28-4605 08:28-0400Diastolic blood ckftrghu15 mm[Hg]Will Tim MD Work Phone: [facility] CenterHqodfivcdv47-92-8859 08:28-0400Heart jjsh719 /min Will Tim MD Work Phone: [facility] CenterBfdwhwwlut43-56-4406 08:28-7887GxG2% (BldA) [Mass fraction]97 %Will Tim MD Work Phone: [facility] CenterCvyegxaihs43-09-5421 08:28-0400Systolic blood rzqvrmki884 mm[Hg]Will Tim MD Work Phone: [facility] CenterIkkbaknpnz58-35-5012 13:45-0400Body hckacv530 cm Will Tim MD Work Phone: [facility] CenterWbnhaxnmve02-91-1084 13:45-0400Body mass index (BMI) [Ratio]31.35 kg/i9YwtaneWill Tim MD Work Phone: [facility] CenterFblzqqlhni49-81-2776 13:45-0400Body xmwyhd21.29 kgWill Tim MD Work Phone: [facility] CenterMnsnqgswql29-85-2048 11:07-0400Body ozudtl768 cm Alen Rausch MD Work Phone: [facility] CenterHacvxbfoum58-34-1480 11:07-0400Body mass index (BMI) [Ratio]31.35 kg/n9VejgbwAlen Rausch MD Work Phone: [facility] CenterMcueurvzrh56-60-4608 11:07-0400Body fuwujj52.29 kgAlen Rausch MD Work Phone: [facility] CenterDivdndgxtq95-30-6443 11:07-0400Diastolic blood mm[Hg]Alen Rausch MD Work Phone: [facility] CenterTicbjusdti19-77-7086 11:07-0400Systolic blood btzdkuls844 mm[Hg]Alen Rausch MD Work Phone: [facility] CenterWxcpkjvwaw69-42-8723 14:00-0500Body hgzffo740.02 cmDajason Garcia Other [employer] Other 11-22-2022 14:00-0500Body mass index (BMI) [Ratio] 31.88 kg/m2Dajason Garcia Other [employer] Other 11-22-2022 14:00-0500Body .65 kgDale Radha Other [employer] Other 11-09-2022 08:25-0500Diastolic blood vvmabqix27 mm[Hg] MD Will Tim Work Phone: [facility]11-09-2022 08:25-0500 Heart rate75 /minMD Will Tim Work Phone: [facility]11-09-2022 08:25-0500 Respiratory rate16 /minMD Will Tim Work Phone: [facility]11-09-2022 08:25-0500 SaO2% (BldA) [Mass fraction]97 %MD Will Tim Work Phone: [facility]11-09-2022 08:25-0500 Systolic blood idbcdrjz256 mm[Hg]MD Will Tim Work Phone: [facility]11-09-2022 07:55-0500 Inhaled oxygen flow rate6 L/minMD Rauljake Babaragustina Work Phone: [facility]11-09-2022 07:14-0500 Body clwrno217.02 cmMD Will Tim Work Phone: [facility]11-09-2022 07:14-0500 Body mass index (BMI) [Ratio]33.5 kg/m2MD Will Tim Work Phone: [phone] [place], [place] 9372511-09-2022 07:14-0500 Body xebktw94.8 kgMD Will Tim Work Phone: [phone] [place], [place] 9372511-09-2022 06:14-0500 Body ftonpdyodnj30.7 [degF]MD Will Tim Work Phone: [facility]10-06-2022 15:20-0400 Body hxvari578.02 cmDajason Garcia Other [employer] Other 10-06-2022 15:20-0400Body mass index (BMI) [Ratio] 31.88 kg/m2Dajason Garcia Other [employer] Other 10-06-2022 15:20-0400Body wyitfy09.65 kgDale Radha Other [employer] Other Encounters Encounter DateEncounter TypeCare ProviderFacilityStart: 05-26-2025 End: 68-01-8989Nbmltosi Result EncounterJodi Obermeyer REWINDER OPERATOR HELPER Work Phone: noms External Department UnsolicitedStart: 05-26-2025 End: 08-52-9554Anqcyans Result EncounterJodi Obermeyer REWINDER OPERATOR HELPER Work Phone: noms External Department UnsolicitedStart: 05-19-2025 End: 16-16-9834Dvqdicb encounter procedureAnthsuly Arevalo DPM Work Phone: NOSt. [facility] PodiatryComment on above:Onychomycosis (Primary Dx); Onychodystrophy; Diabetic polyneuropathy associated with type 2 diabetes mellitus (HCC)Start: 05-19-2025 End: 04-91-4854grckveiekiYYUEZTB S RUSHERNot AvailableStart: 05-19-2025 End: 62-20-7341Subdyz flowsheetAnthony Romina Arevalo DPM Work Phone: noSt. [facility] PodiatryStart: 05-19-2025 End: 91-43-9149Hjjsjh flowsheetAnthsuly Arevalo DPM Work Phone: noSt. [facility] PodiatryStart: 05-12-2025 End: 90-97-3248aiokqqzvelHigxte J Hemeyer MD Work Phone: [facility] Work Phone: Start: 05-12-2025 End: 59-85-8454Epmmftk encounter procedureWillie Garcia MD-[facility] Neuro[facility] Work Phone: start: 04-09-2025 End: 25-73-8816zzbkkkgzpbAcyasq J Hemeyer MD Work Phone: [facility] Work Phone: Start: 04-09-2025 End: 10-32-7695Bmulyjo encounter procedureWillie Garcia MD-[facility] Work Phone: start: 03-30-2025 End: 18-29-3336mskzucaxvvXcupwomAshli Issa MDFacility:[facility] Start: 03-18-2025 End: 07-79-6878Lwgikv Alberto Tim MD Work Phone: [facility] CI FM 100Start: 03-18-2025 End: 88-78-8914Staqrrjose Tim MD Work Phone: [facility] CI FM 100Start: 03-18-2025 End: 25-70-5644Xwhtrr outpatient visit 15 minutesWill Tim MD Work Phone: [facility] FM 100Comment on above:Recurrent major depressive disorder, in partial remission (Primary Dx); Osteopenia, unspecified location; Impaired glucose tolerance testStart: 03-18-2025 End: 51-14-2141koyvgxhraqQWSZNC J HEMEYERNot AvailableStart: 02-27-2025 End: 62-98-5507Vvqqizkrv Result Dakota Tim MD Work Phone: noms External Department UnsolicitedStart: 02-27-2025 End: 08-66-4291Elaearmci Result EncounterEdjake Tim MD Work Phone: noms External Department UnsolicitedStart: 02-15-2025 End: 30-19-1172Xlrxlg OnlyEdjake Tim MD Work Phone: [facility] 100Start: 02-11-2025 End: 74-31-3099Saviljp encounter procedureAnthony S Mickey DPM Work Phone: noms PODIATRYComment on above:Onychomycosis (Primary Dx); Onychodystrophy; Diabetic polyneuropathy associated with type 2 diabetes mellitus ([facility])Start: 02-11-2025 End: 06-03-1495nlwhnqttqtGUDAZXY S RUSHERNot AvailableStart: 02-11-2025 End: 78-85-2128Ozxqpe flowsheetAnthony S Rusher DPM Work Phone: noms PODIATRYStart: 02-11-2025 End: 31-34-5445Alncih flowsheetAnthony S Rusher DPM Work Phone: noms PODIATRYStart: 02-02-2025 End: 14-30-5877Sujvri flowsGeorgiana Tim MD Work Phone: [facility] CI FM 100Start: 02-02-2025 End: 35-87-9591Evnwqq flowsGeorgiana Tim MD Work Phone: [facility] FM 100Start: 02-02-2025 End: 41-52-5100Vrzchie encounter procedureWill Tim MD Work Phone: [facility] [...] Cigarette smoker; Cardiovascular event riskStart: 02-02-2025 End: 93-75-9071lfqsdvudkwCEGVKM J HEMEYERNot AvailableStart: 01-05-2025 End: 35-87-6238Fmrxwd flowsheetSammantha Campos PTNOMS CI PTStart: 01-05-2025 End: 68-41-1165Akunpl flowsheetSammantha Campos PTNOMS CI PTStart: 01-05-2025 End: 91-72-2749eihnpcyoalKnqbskeat Campos PTNOMS CI PTComment on above: Chronic pain syndrome (Primary Dx); Right leg weakness; Neuropathy; Right foot painStart: 01-01-2025 End: 58-10-9124Swrswt flowsheetMelissa Kelbley PTANOMS CI PTStart: 01-01-2025 End: 20-61-8573Acxxnv flowsheetMelissa Kelbley PTANOMS CI PTStart: 01-01-2025 End: 53-13-4825davyruxzowEqklocp Kelbley PTANOMS CI PTComment on above:Chronic pain syndrome (Primary Dx); Right leg weaknessStart: 12-30-2024 End: 70-30-3010Rkooyg flowsheetMelissa Kelbley PTANOMS CI PTStart: 12-30-2024 End: 19-98-5161Umxlqh flowsheetMelissa Kelbley PTANOMS CI PTStart: 12-30-2024 End: 87-67-8724ueceeboannZypixdb Kelbley PTANOMS CI PTComment on above:Chronic pain syndrome (Primary Dx); Right leg weaknessStart: 12-25-2024 End: 70-76-1099gpncgrlljnDrqiito Kelbley PTANOMS CI PTComment on above:Chronic pain syndrome (Primary Dx); Right leg weaknessStart: 12-25-2024 End: 36-94-6366Crkdeh flowsheetMelissa Kelbley PTANOMS CI PTStart: 12-25-2024 End: 93-09-9553Neusku flowsheetMelissa Kelbley PTANOMS CI PTStart: 12-22-2024 End: 42-83-3019Fdoxyx flowsheetMelissa Kelbley PTANOMS CI PTStart: 12-22-2024 End: 55-50-2490Rkaxir flowsheetMelissa Kelbley PTANOMS CI PTStart: 12-22-2024 End: 80-78-3328vzmamaahjhOtzwitp Kelbley PTANOMS CI PTComment on above:Chronic pain syndrome (Primary Dx); Right leg weaknessStart: 12-19-2024 End: 63-99-4588Smjeek flowsheetMelissa Kelbley PTANOMS CI PTStart: 12-19-2024 End: 02-15-8318Fzyavm flowsheetMelissa Kelbley PTANOMS CI PTStart: 12-19-2024 End: 32-43-0084zmaadjbhkeXmgbbjv Kelbley PTANOMS CI PTComment on above:Chronic pain syndrome (Primary Dx); Right leg weaknessStart: 12-16-2024 End: 11-62-8537Fzkmpv flowsheetMelissa Kelbley PTANOMS CI PTStart: 12-16-2024 End: 62-83-1684Rbsbck flowsheetMelissa [place]y PTANOMS CI PTStart: 12-16-2024 End: 15-32-8993edptqlotjqCqvztoe Kelbley PTANOMS CI PTComment on above:Chronic pain syndrome (Primary Dx); Right leg weakness; NeuropathyStart: 12-10-2024 End: 86-28-1818Lqiuss flowsheetMelissa Kelbley PTANOMS CI PTStart: 12-10-2024 End: 66-71-4705Hqktpa flowsheetMelissa Kelbley PTANOMS CI PTStart: 12-10-2024 End: 24-19-5833pybnpvlofaOxbnnjc Kelbley PTANOMS CI PTComment on above:Chronic pain syndrome (Primary Dx); Right leg weaknessStart: 12-08-2024 End: 39-52-4253vhgcrqwylcYZZSTYR KELBLEYNot AvailableStart: 12-05-2024 End: 07-91-5106smynwwarucHWAEGRHZ BRINKNot AvailableStart: 12-03-2024 End: 84-82-3652yhvjeojfgrTRTCOKZJI SCHNEIDERNot AvailableStart: 11-24-2024 End: 16-53-9611tjhkbehxtnGUCFMU DANNERNot AvailableStart: 11-24-2024 End: 40-06-8576eoczjusbirLBMYVC J HEMEYERNot AvailableStart: 11-05-2024 End: 30-99-5735Kshzko outpatient visit 15 minutesAnthsuly Arevalo DPM Work Phone: NOMS PODIATRYComment on above:Onychomycosis (Primary Dx); Onychodystrophy; Diabetic polyneuropathy associated with type 2 diabetes mellitus ([facility])Start: 11-05-2024 End: 50-54-4412dgookrulmxZTQPDCS Romina PALACIOHERNot AvailableStart: 11-05-2024 End: 61-49-3208Ajtnbm flowsheetAnthony Romina Arevalo DPM Work Phone: NOMS FH PODIATRYStart: 11-05-2024 End: 48-50-8869Luvinv flowsheetAnthony S Mickey DPM Work Phone: noMS PODIATRYStart: 10-27-2024 End: 09-00-0397Wgytqc Alberto Tim MD Work Phone: NOMS CI FM 100Start: 10-27-2024 End: 06-57-4453Wpqyml Alberto Tim MD Work Phone: NOMS CI FM 100Start: 10-27-2024 End: 09-65-1284Njhcbi outpatient visit 25 minutesWill Tim MD Work Phone: noms CI FM 100Comment on above:Right foot pain (Primary Dx); Right leg weakness; Limping; Artificial knee joint present, right; Right leg swelling; Rheumatoid arthritis involving multiple sites with positive rheumatoid factor ([facility])Start: 10-27-2024 End: 66-90-1252xwouzizrvcMEDGKK J HEMEYERNot AvailableStart: 10-20-2024 End: 52-83-3267Gfjuhwguo encounterEdjake Tim MD Work Phone: noms CI FM 100Start: 08-12-2024 End: 90-99-7975Wunpgc flowsheetJames A Izzy DO Work Phone: noms ORTHOPAEDICSStart: 08-12-2024 End: 20-04-9873Dvjqfx flowsheetJames A Izzy DO Work Phone: noms ORTHOPAEDICSStart: 08-12-2024 End: 64-13-5615bjfewwmizgMWHZK A HUDDLESTONNot AvailableStart: 08-12-2024 End: 23-60-9626Kdnoty outpatient visit 10 minutesJames A Izzy DO Work Phone: noms ORTHOPAEDICSComment on above:Arthritis of right knee; Arthritis of left knee; S/P total knee arthroplasty, left; S/P total knee arthroplasty, rightStart: 08-05-2024 End: 98-29-1790Qsnejh flowsheetAnthony S Rusher DPM Work Phone: noms PODIATRYStart: 08-05-2024 End: 71-39-1172Tzmfef flowsheetAnthony S Rusher DPM Work Phone: noms PODIATRYStart: 08-05-2024 End: 51-89-9746Bfhsog outpatient visit 15 minutesAnthsuly S Ebenher DPM Work Phone: noms PODIATRYComment on above:Onychomycosis (Primary Dx); Onychodystrophy; Diabetic polyneuropathy associated with type 2 diabetes mellitus (CMS/HCC); Primary osteoarthritis of left ankle; Primary osteoarthritis of right ankleStart: 08-05-2024 End: 46-92-4747kbyhtpnoqzABCEXIF Romina AREVALOLakshmi AvailableStart: 07-15-2024 End: 69-70-2187Svswmk follow up visit related to original Jacqueline Arshad MD Work Phone: noms ST GENSComment on above:Positive colorectal cancer screening using Cologuard test (Primary Dx); Diverticulosis large intestine w/o perforation or abscess w/o bleedingStart: 07-15-2024 End: 78-95-8178adpshoryufIQTBIV VARGAS VNot AvailableStart: 07-03-2024 End: 94-74-1083Nnnfbx Alberto Tim MD Work Phone: noms CI FM 100Start: 07-03-2024 End: 81-24-1241Mymvfk Alberto Tim MD Work Phone: NOMS CI FM 100Start: 07-03-2024 End: 94-15-6744Onnhcr outpatient visit 25 minutesWill Tim MD Work Phone: noms CI FM 100Comment on above:Essential hypertension (CMS/HCC) (Primary Dx); Hypertensive nephropathy (CMS/HCC); Insulin resistance; Impaired glucose tolerance test; Mixed hyperlipidemia (CMS/HCC); Left foot pain; TMJ syndrome; Encounter for examination following treatment at hospital; Polypharmacy; Obesity (BMI 30.0-34.9)Start: 07-03-2024 End: 54-28-9979cwvtefdqwfMKQEKZ J HEMEYERNot AvailableStart: 06-10-2024 End: 33-64-5335Jjumne outpatient visit 25 minutesWill Tim MD Work Phone: NOMS CI FM 100Comment on above:Yeast dermatitis; Polypharmacy; Obesity (BMI 30.0-34.9)Start: 06-10-2024 End: 86-94-8108ekkqaydengOHONFL J HEMEYERNot AvailableStart: 06-02-2024 End: 17-79-9309Oefzzm OnlyOsei Arevalo DPM Work Phone: noms FH PODIATRYComment on above:Primary osteoarthritis of left ankle (Primary Dx)Advice OnlyStart: 05-23-2024 End: 06-04-6977Zmcndu outpatient new 45 minutesAlen Arshad MD Work Phone: noms ST GENSComment on above:Positive colorectal cancer screening using Cologuard test (Primary Dx); Encounter for screening for malignant neoplasm of colonStart: 05-23-2024 End: 28-74-9898qwywltxdjuDHCVOM VARGAS VNot AvailableStart: 05-13-2024 End: 50-00-3978Mnuudu Virgie Engle NP Work Phone: noms CI ORTHOPAEDICSStart: 05-13-2024 End: 03-61-0450Ddkzfl Virgie Engle GAS APPLIANCE ADJUSTER Work Phone: noms CI ORTHOPAEDICSStart: 05-13-2024 End: 95-13-2170Tqhwdo outpatient visit 10 minutesVivek Engle NP Work Phone: noms CI ORTHOPAEDICSComment on above:S/P reverse total shoulder arthroplasty, right; Osteoarthritis of right glenohumeral jointStart: 01-24-2024 End: 80-69-9198qvphutxgetOFBYAK J. HEMEYERFacility:[facility] HospitalStart: 01-17-2024 End: 66-18-6911vehztnemngNSDZXO J. HEMEYERFacility:[facility] HospitalStart: 01-10-2024 End: 77-27-9682jbltcnfrjtTRIWLF J. HEMEYERFacility:[facility] HospitalStart: 01-03-2024 End: 96-03-3566mocmlkdslmNGZQIG J. HEMEYERFacility:[facility] HospitalStart: 12-27-2023 End: 66-59-9752unhscgquxnUE Katherine TurnerFacility:[facility] HospitalStart: 12-20-2023 End: 25-81-1191hofdoecxgmZA Katherine TurnerFacility:[facility] HospitalStart: 12-13-2023 End: 64-01-0958gpffychpeqAU Dominique ColemanFacility:[facility] HospitalStart: 12-06-2023 End: 13-06-0231zvxidqxakiWU Dominique ColemanFacility:[facility] HospitalStart: 11-27-2023 End: 89-72-3982ezniiemzzaLR Katherine TurnerFacility:[facility] HospitalStart: 10-29-2023 End: 27-15-0956jscxpvyhriSuqlx Mainor IzzyFacility:[facility] HospitalStart: 61-79-0876Hsrnb Sushila Magana DO Work Phone: noms CI ORTHOPAEDICSStart: 46-78-6046YhxhqkQzujm T Olsen GAS APPLIANCE ADJUSTER Work Phone: NOMZ FB ORTHOPAEDICSComment on above:Post-operative pain (Primary Dx)Start: 10-04-2023 End: 35-14-6088rmfmfgksusTwmlp Mainorrivas MaganaFacility:[facility] HospitalStart: 08-15-2022 End: 23-27-4828wwbedhikhjKU EDWARD HEMEYERFacility:G1Sucbs: 08-11-2022 End: 75-01-1426ygsxbcklhwQW WILL TIMFacility:V0Quqcr: 08-08-2022 End: 66-02-3299scqdyftszeLnjm Braun Other [facility] [employer] Other start: 28-63-8706Kaqowx follow up visit related to original pxDale BraunFPG [facility] NeurosurgeryStart: 07-26-2022 End: 58-95-1978Rbhskgrub to same day surgery centerMD Will Tim Work Phone: [facility] HospitalStart: 07-26-2022 End: 38-80-4373acpztmsnxmFP Edward J Hemeyer Work Phone: [facility] Work Phone: Start: 07-24-2022 End: 25-78-4215eulbndjgleGY Edjake J Hemeyer Work Phone: [facility] Work Phone: Start: 07-24-2022 End: 19-51-2494Cecniae encounter procedureMD Edward Hemeyer Work Phone: [facility] Rey-Avt-Vwgcrwpy Testing Start: 07-12-2022 End: 51-89-5039nguuuyyxcqUM Edjake J Hemeyer Work Phone: [facility] Work Phone: Start: 07-12-2022 End: 65-79-2282Povkzha encounter procedureMD Edjake Hemeyer Work Phone: [facility] Pkg-Fxi-Isdzqjur Testing Start: 06-22-2022 End: 33-96-1897culdqeguthGckp Garcia Other [place] [employer] Other start: 22-73-3780Dzpkhs outpatient new 30 minutesDale BraunBl[facility] Hospital NeurosurgeryStart: 06-21-2022 End: 73-66-8855rvdfapenqzIE Will Leo Hemeyer Work Phone: [facility] Work Phone: Start: 06-21-2022 End: 72-41-2985Gbrajgq encounter procedureMD Edjake Hemeyer Work Phone: [facility]Ray [facility] CampusStart: 04-30-2022 End: 36-66-8485rbbxhalczeVQBYFV RODRIGUEZFacility:O7Qolwl: 02-11-2022 End: 38-03-3992mqnsstapmiFS EDWARD HEMEYERFacility:R9Jpmuu: 11-19-2021 End: 34-02-8797elfgqmlpmvVS EDWARD HEMEYERFacility:Z6Xjbpk: 11-05-2021 End: 08-92-4846mehntqzprhUR EDWARD HEMEYERFacility:H1 Procedures DateProcedureProcedure DetailPerforming ClinicianStart: 47-21-8257Cdlfumoo blood count with white cell differential, automatedJodi Obermeyer REWINDER OPERATOR HELPER Work Phone: Start: 06-64-3308Pubzftxdudghi metabolic panelJodi Obermeyer REWINDER OPERATOR HELPER Work Phone: Start: 16-23-9255Jrmkf radiography of pelvisWill Tim MD Work Phone: Start: 32-55-5897I-ray of lumbar spine, six views including bending viewsWill Tim MD Work Phone: Start: 31-15-4904QB LUMBAR SPINE WO CONGeneric External Data ProviderStart: 44-45-2728KD TOMOSYNTHESIS SCREENING Richard Tim MD Work Phone: Start: 90-34-9946HwzbpfijfypIfqxhk Hemeyer MD Work Phone: Start: 34-18-7980Simygsitps glycosylated n6aRuplqrWill Tim MD Work Phone: Start: 73-62-9046Msezp albumin quantitativeEdjake Tim MD Work Phone: Start: 50-17-3561EqrkxfyjysmDjqnuq Jeancarlos Rausch MD Work Phone: Start: 98-43-9847Dvrtc shoulder complete minimum 2 viewsGrant T Oniel GAS APPLIANCE ADJUSTER Work Phone: Start: 02-07-2024H/O: artificial jointPresence of artificial shoulder joint, rightGrant Oniel GAS APPLIANCE ADJUSTER Work Phone: Start: 07-04-2023H/O: artificial jointPresence of artificial shoulder joint, leftGrant Oniel GAS APPLIANCE ADJUSTER Work Phone: Start: 76-16-0974Rcogywbucnbse of median nerveMD Will Tim Work Phone: Start: 56-18-8585J-ray of cervical spineMD Will Tim Work Phone: Start: 34-97-8491EhtcstavmgoKlatb Engle ONEL Work Phone: Plan of Treatment DateCare ActivityDetailAuthorStart: 80-77-8998Jxlwajrvy for malignant neoplasm of colonNOMS HealthcareStart: 18-56-7581Vrbzkfqyu for malignant neoplasm of colonNOMS HealthcareStart: 28-31-8663Mrygvfjk screeningDiabetes: Retinopathy ScreeningNOMS HealthcareStart: 86-13-2107Tmcrqrnwu for malignant neoplasm of breastMammogramNOMS HealthcareStart: 22-20-6373Gztws screening for protein Diabetes: Urine Protein ScreeningNOLA HealthcareStart: 05-19-2026Medicare Annual Wellness (AWV)Medicare Annual Wellness (AWV)NOM HealthcareStart: 08-18-2025 End: 38-55-0694Apcanaj encounter zwbbchyzt48/02/2025 3:00 PM EST Procedure Visit [facility] Podiatry [address] [place] [address] Osei Arevalo DPM [address] [place] [address] [facility] Vicente PodiatryStart: 82-11-9191Hqpim screening for proteinDiabetes: Urine Protein ScreeningNOLA HealthcareStart: 05-19-2025 End: 55-98-7681Aauagvw encounter procedureNOMS PODIATRYComment on above: ArrivedStart: 25-77-6471Xqnecxwkk vaccinationInfluenza Vaccine (#1)NOM HealthcareStart: 79-94-6577Ihdihtchan A1c measurementDiabetes: Hemoglobin A1C NOM HealthcareStart: 03-18-2025 End: 63-40-9819Iqckrcd encounter scfpdbliu93/02/2025 2:00 PM EDT Office Visit [facility] FM [address] [place] [address] Will Tim MD [address] [place] [address] (Fax) Recurrent major depressive disorder, in partial remission ; Impaired glucose tolerance testNOMS CI FM 100Comment on above:Recurrent major depressive disorder, in partial remission ; Impaired glucose tolerance testStart: 02-12-2025 End: 29-83-9085Qlkkpkr encounter jnupsyqjv45/29/2025 11:00 AM EDT [facility] [address] [place] [address] Will Tim MD [address] [place] [address] [facility] 100Start: 02-11-2025 End: 45-53-4893Nljhlge encounter procedureNOSAINT MARY'S [facility] PODIATRYComment on above: ArrivedStart: 02-10-2025 End: 29-14-3791Epjpeqy encounter dmczwhvaf47/27/2025 2:30 PM EDT Procedure Visit [facility] [address] [place] [address] Osei Arevalo DPM [address] [place] [address] [facility] PODIATRYStart: 05-21-2025Medicare Annual Wellness (AWV)Medicare Annual Wellness (AWV)NOMS HealthcareStart: 68-84-1599Ttibdqeacqkh Vaccine: 65+ Years (3 of 3 - PPSV23 or PCV20)Pneumococcal Vaccine: 65+ Years (3 of 3 - PPSV23 or PCV20)NOM HealthcareComment on above:Postponed from 01/14/2022 (Patient Refused)Start: 02-02-2025 End: 58-11-7331QQE Skeletal system Views for bone densityDEXA bone density Imaging Routine Screening for osteoporosis Menopause Expected: 02/02/2025, Expires: 02/02/2026NOLA HealthcareComment on above:Expected: 02/02/2025, Expires: 02/02/2026Start: 02-02-2025 End: 50-07-2397OQ Breast - bilateral ScreeningBilateral screening mammogram Imaging Routine Screening mammogram, encounter for Expected: 02/02/2025, Expires: 04/04/2026[facility] Work Phone: Comment on above:Expected: 02/02/2025, Expires: 04/04/2026Start: 02-02-2025 End: 83-61-0232Zlpmvgz encounter procedureNOMS CI FM 100Comment on above: Encounter for Medicare annual wellness exam; Advance directive in chart; Encounter for screening for other disorder; Screening for alcohol problem; Polypharmacy; Obesity (BMI 30.0-34.9); Screening mammogram, encounter for; Screening for osteoporosisStart: 01-09-2025 End: 09-96-4577wxugcdooxf41/25/2025 2:00 PM EDT Treatment [facility] PT [address] [facility] [address] [place] [address] Jaimee Velazquez, EMERGENCY MEDICAL TECH NOMS CI PTStart: 01-05-2025 End: 71-48-8907xhinhlyukmCZWC CI PTComment on above:Chronic pain syndrome (Primary Dx); Right leg weakness; Neuropathy; Right foot painStart: 01-01-2025 End: 89-23-1812xclydmgafaXWKF CI PTComment on above:ArrivedStart: 12-30-2024 End: 81-87-5519godzmgmidh49/15/2025 2:00 PM EDT Treatment [facility] PT [address] [facility] [address] [place] [address] Jaimee Velazquez, EMERGENCY MEDICAL TECH ArrivedNOMS CI PTComment on above:ArrivedStart: 12-25-2024 End: 93-93-7971dltqoxxpzf41/10/2025 2:00 PM EDT Treatment [facility] PT [address] [place] [address] Audrey Velazquezissa, EMERGENCY MEDICAL TECH NOMS CI PTStart: 12-22-2024 End: 40-47-2485gbavcxmmhx42/07/2025 7:00 AM EDT Treatment [facility] PT [address] [place] [address] Jaimee Velazquez, EMERGENCY MEDICAL TECH NOMS CI PTStart: 12-19-2024 End: 69-45-1428jmjherihpwJQCQ CI PTComment on above:ArrivedStart: 12-16-2024 End: 35-77-7155huegbzvuiwSBOK CI PTComment on above:ArrivedStart: 12-10-2024 End: 83-08-6555qkepqtwnbx83/26/2025 2:00 PM EDT Treatment [facility] PT [address] [place] [address] Jaimee Velazquez, IDAILA ArrivedNOMS CI PTComment on above:ArrivedStart: 11-27-2024 End: 11-37-1549Oqmkioo encounter procedureNOMS CI FM 100Start: 11-24-2024 End: 68-59-9271Tcrbojm encounter anhhcfdnn44/10/2025 9:00 AM EDT Office Visit [facility] [address] [place] [address] Will Tim MD [address] [place] [address] NOM[facility] CI FM 100Start: 11-18-2024 End: 40-93-0072Zfuwcqn encounter mdfwamuzj16/04/2025 9:00 AM EST Office Visit [facility] [address] [place] [address] Vivek Engle, GAS APPLIANCE ADJUSTER [address] [facility] [place] [address] NOMS CI ORTHOPAEDICSStart: 11-05-2024 End: 96-96-1591Ptjkzti encounter procedureNOMS FH PODIATRYComment on above: ArrivedStart: 10-27-2024 End: 41-75-0746NNH 1 ExtremeityEMG 1 [facility] Neurology Routine Right foot pain Right leg weakness Limping Artificial knee jointpresent, right Right leg swelling Expected: 10/27/2024 (Approximate), Expires: 10/27/2025[facility] Work Phone: Comment on above:Expected: 10/27/2024 (Approximate), Expires: 10/27/2025Start: 10-27-2024 End: 66-70-2053Pwfpwor encounter vuyilfohs88/10/2025 2:00 PM EST Office Visit [facility] [address] [place] [address] Will Tim MD [address] [place] [address] (Fax) ArrivedNOMS CI FM 100Comment on above: ArrivedStart: 08-53-2896Obxgycyc screeningDiabetes: Retinopathy ScreeningNOMS HealthcareStart: 51-13-7132Slzyifygoa A1c measurementDiabetes: Hemoglobin A1C NOMS HealthcareStart: 08-12-2024 End: 71-82-7540Tiujspt encounter dmhazygtc53/26/2024 9:00 AM EST Office Visit [facility] [address] [place] [address] Alexis Magana DO [address] [place] [address] NOMS CI ORTHOPAEDICSStart: 08-05-2024 End: 65-47-7774Nrkrcik encounter procedureNOMS FH PODIATRYComment on above: ArrivedStart: 07-15-2024 End: 74-97-1738Ytyfmvq encounter osasullca95/29/2024 2:30 PM EDT Office Visit [facility] [address] [address] Alen Arshad MD [address] [facility] 150 [place] [address] GENSStart: 07-03-2024 End: 62-59-5833Fcgdctf encounter procedureNOMS CI FM 100Comment on above: Essential hypertension (CMS/HCC); Hypertensive nephropathy (CMS/HCC); Insulin resistance; Mixed hyperlipidemia (CMS/HCC); Encounter for examination following treatment at hospital; Polypharmacy; Obesity (BMI 30.0-34.9)Start: 07-02-2024 End: 22-82-5469Geqcken encounter ktoirmjit80/16/2024 12:30 PM EDT Procedure Visit [facility] EXT DEP Alen Arshad MD 7[address] [facility] 150 [place] [address] NOMS EXT DEPStart: 06-19-2024 End: 35-42-0702Vvdcvsh encounter /03/2024 8:00 AM EDT Office Visit [facility] 100 [address] [facility] 100 [place] [address] Will Tim MD [address] [facility] [place] [address] NOM[facility] CI FM 100Start: 05-23-2024 End: 89-96-0678Kgrneee encounter kvbyzljpe92/06/2024 11:15 AM EDT Consult [facility] [address] [address] Alen Arshad MD [address] GENSStart: 14-39-0485Tbtxvmsul vaccinationInfluenza Vaccine (#1) NOMS HealthcareStart: 05-13-2024 End: 21-03-1474Sjxvmer encounter hwbttemuf61/27/2024 9:00 AM EDT Office Visit [facility] [address] [facility] [address] [place] [address] Vivek Engle, GAS APPLIANCE ADJUSTER [address] [place], [place] [address] S/P reverse total shoulder arthroplasty, right; Osteoarthritis of right glenohumeral jointNOMS CI ORTHOPAEDICSComment on above: S/P reverse total shoulder arthroplasty, right; Osteoarthritis of right glenohumeral jointStart: 01-21-2024 End: 79-73-0972Tqckmfm encounter acimwyfek59/06/2024 3:00 PM EDT Procedure Visit [facility] [address] [place] [address] Osei Arevalo, DPM [address] [place] [address] NOMS PODIATRYStart: 12-20-2023 End: 29-00-8504Gdfdooq encounter bqzzogcui14/04/2024 2:00 PM EDT Office Visit [facility] [address] [place] [address] Will Tim MD [address] [place] [address] NOMS PAUL FMStart: 11-06-2023 End: 96-33-9087Poxhfpl encounter uhniprtjk54/20/2024 10:00 AM EST Office Visit [facility] [address] [place] [address] Alexis Magana, DO [address] [place] [address] NOMS ORTHOPAEDICSStart: 10-29-2023 End: 68-37-8653Aqbppqk encounter gaacwbnup28/12/2024 10:00 AM EST Procedure Visit [facility] EXT DEP Alexis Magana, DO [address] [place] [address] NOMS EXT DEPStart: 08-21-2023 Medicare Annual Wellness (AWV)Medicare Annual Wellness (AWV)[facility] Start: 72-78-5829Infxt screening for proteinDiabetes: Urine Protein Screening NOM HealthcareStart: 99-11-8058Bietxlebcp A1c measurementDiabetes: Hemoglobin J2ZVEZF HealthcareStart: 50-96-1548Urhii screening for proteinDiabetes: Urine Protein ScreeningNOLA HealthcareStart: 07-26-2022 End: 54-47-8930RvgnoiikaLicking Memorial Hospitaltart: 70-54-6798Eiivueehp for malignant neoplasm of breastMammogramNOMS HealthcareStart: 01-14-2022 Pneumococcal Vaccine: 65+ Years (3 - PPSV23 or PCV20)Pneumococcal Vaccine: 65+ Years (3 - PPSV23 or PCV20)NOMS HealthcareStart: 65-07-2944Wsrwvteqr for malignant neoplasm of colonNOMS HealthcarePatient referralUniversity [facility]als [facility] Work Phone: XR Lumbar spine ViewsTogus [facility] Center XR Pelvis 1 or 2 [facility] Immunizations Immunization DateImmunizationNotesCare ShwoyeazKszzsonm87-07-5463YDCQPLP - Respiratory syncytial virus (RSV), vaccine, bivalent, protein subunit RSV prefusion F, diluent reconstituted, 0.5 mL, PFWill Tim MD Work Phone: [facility] CenterEfldrcptzv27-88-0492voyutzqpo, high dose seasonal, preservative-freeWill Tim MD Work Phone: [phone] [place], [place] [address]Amzmylvynt55-69-4183Rnkdxnkczcgk Conjugate PCV 20 Will Tim MD Work Phone: [facility] CenterScliptytcr24-63-1333uhphavxsy virus vaccine, unspecified formulationWill Tim MD Work Phone: [phone] [place], [place] [address]Zvhmoukbyp28-25-4839ddfxuyvxd virus vaccine, unspecified formulationAlext Oniel GAS APPLIANCE ADJUSTER Work Phone: [facility] CenterVkzeqsqorb82-21-9823Stowmqsrd, Seasonal, Quadrivalent, AdjuvantedGrant Oniel GAS APPLIANCE ADJUSTER Work Phone: [facility] CenterGwygugnngp54-73-7653TPNTK-63 mRNA Bivalent Booster (Pfizer)MD Will Tim Work Phone: [phone] [place], [place] [address]10-12-2022Influenza, High-dose Seasonal, Quadrivalent, Preservative FreeGrant Oniel GAS APPLIANCE ADJUSTER Work Phone: [facility] CenterFtbbghxdbl15-98-0134edbiqdnii virus vaccine, unspecified formulationGrant Oniel GAS APPLIANCE ADJUSTER Work Phone: [facility] CenterTfgelfjmgf04-10-2694ytsyuzriz, injectable, quadrivalent, preservative freeGrant nOiel GAS APPLIANCE ADJUSTER Work Phone: [phone] [place], [place] [address]Yutqaihrqo26-41-8590uyeafmyri virus vaccine, unspecified formulationGrant Engle GAS APPLIANCE ADJUSTER Work Phone: [phone] [place], [place] [address]Kjkcmakeqk00-13-0666akbzytpms, injectable, quadrivalent, preservative freeGrant Engle GAS APPLIANCE ADJUSTER Work Phone: [phone] [place], [place] [address]Knavuaaslw24-77-4301DWUEU-87 mRNADax (Pfizer)MD Will Tim Work Phone: [facility]01-19-2021COVID-19 mRNADax (Pfizer)MD Will Tim Work Phone: [facility]10-01-2020influenza virus vaccine, unspecified formulationGrant Engle GAS APPLIANCE ADJUSTER Work Phone: [phone] [place], [place] [address]Nuqvyktehh51-45-6418ypueafaeu, high dose seasonal, preservative-freeGrant Engle GAS APPLIANCE ADJUSTER Work Phone: [phone] [place], [place] [address]Bnjhpyxmpj09-04-4289mgpjljtrr virus vaccine, unspecified formulationGrant Engle GAS APPLIANCE ADJUSTER Work Phone: [phone] [place], [place] [address]Uuijpclshv83-56-7455glypxtnyu, injectable,quadrivalent, preservative free, pediatricGrant Engle GAS APPLIANCE ADJUSTER Work Phone: [phone] [place], [place] [address]Jnzklcvdgl93-73-1136ghuzpckix virus vaccine, unspecified formulationGrant Engle GAS APPLIANCE ADJUSTER Work Phone: [phone] [place], [place] [address]Zypjjxkule28-21-7025Urhjwcgk trivalent influenza vaccine, adjuvanted, preservative freeGrant Engle G[employer] AP[employer]ANCE ADJUSTER Work Phone: [phone] [place], [place] [address]Hrfcpmmsdf92-18-8439oeshlmngg, injectable, quadrivalent, preservative freeGrant Engle G[employer] AP[employer]IANCE ADJUSTER Work Phone: [phone] [place], [place] [address]Imosbaggdm81-60-4043wolzzsfkzidn conjugate vaccine, 13 valentGrant Engle G[employer] AP[employer]IANCE ADJUSTER Work Phone: [phone] [place], [place] [address]Anifhqnafr94-26-7030cawuedzoy virus vaccine, unspecified formulationGrant Engle G[employer] AP[employer]IANCE ADJUSTER Work Phone: [phone] [place], [place] [address]Pcrcqokmdy75-81-6396yxsphjwml, high dose seasonal, preservative-freeGrant Engle G[employer] AP[employer]IANCE ADJUSTER Work Phone: [phone] StreetAnqozycmxf68-52-1930xjfwdltwktrs polysaccharide vaccine, 23 valentGrant Engle G[employer] APPLIANCE ADJUSTER Work Phone: [phone] [place], [place] [address]Frmdmyhviz87-00-7536pxcryanjx virus vaccine, unspecified formulationGrant Engle GAS APPLIANCE ADJUSTER Work Phone: [phone] [place], [place] [address]Guhxvfwlak37-05-1911sapyobxym, injectable, quadrivalent, preservative freeGrant Engle GAS APPLIANCE ADJUSTER Work Phone: [phone] [place], [place] [address]Zdntjfmzqr05-43-2172blzkrg vaccine, liveGrant Engle GAS APPLIANCE ADJUSTER Work Phone: [phone] [place], [place] [address]Qusuygdeie74-69-4809bpuiodjddakx polysaccharide vaccine, 23 valentGrant Negle GAS APPLIANCE ADJUSTER Work Phone: [phone] [place] [address] Payers DatePayer CategoryPayerPolicy [id number] [id number]77.82345-78-6335Dbpvxtc Health Insurance 1.2.840.015300.1.13.693.2.7.3.586721.315 [id number]76159 2.16.840.1.481368.3.579.2.71726-50-4348Kdzedif5684237 2.16.840.1.441825.3.57[id number] 2.16.840.1.896501.3.579.[id number] 2.16.840.1.887184.3.579.2.06339-96-6252Bnhevij0572702 2.16.840.1.058932.3.579.2.92946-52-8952Svklgyq3474676 2.16.840.1.259777.3.579.2.53458-10-8251Pwaitsz37641626 2.16.840.1.887240.3.579.2.55797-60-6883Cmhtoxu00959659 2.16840.1.628376.3.579.2.45544-20-2836Harsece23728511 2.16840.1.319558.3.579.2.14706-88-8779Qldupyl96142961 2.16.840.1.908528.3.579.2.00047-23-9590Ohhfpsp13613013 2.16840.1.124891.3.579.[id number] 2.16840.1.882407.3.579.2.51551-14-6386Yjamhwj77452139 2.16.840.1.060154.3.579.2.20722-00-0200Ylgspdz58674082 2.16.840.1.076519.3.579.2.00942-10-4334Vtlvogz06750469 2.16.840.1.768680.3.579.2.04981-64-1956Bpbghhn98561355 2.16.840.1.130145.3.579.2.24125-79-6843Pfagufi82357726 2.16.840.1.669795.3.579.2.17482-74-6495Hgeleuv854460859 2.16.840.1.749131.3.579.2.96846-78-6180Vnqdkth58289522 2.16.840.1.219750.3.579.2.731364-98-1984Lqerrls20874117 2.16.840.1.882607.3.579.2.700679-11-5702Fyiejtx5008234 2.16.840.1.949685.3.579.2.057208-65-2927Mqhmzhb9613337 2.16840.1.523793.3.579.2.307841-22-3120Oytfbyi7473168 2.16.840.1.472864.3.579.2.231364-04-5858Yctserb7871677 2.16.840.1.268990.3.579.2.374272-88-1710Wjbhoff0631457 2.16.840.1.401275.3.579.2.328775-11-7475Ydnkqvq7868651 2.16840.1.781847.3.579.2.938849-51-7258Qpkddap6494647 2.16.840.1.114410.3.579.2.443941-39-9451Nemqdtr3497170 2.16.840.1.962504.3.579.2.458170-79-9860Uvcgdye0618840 2.16.840.1.215942.3.579.2.806048-14-2430Conoszk6061536 2.16840.1.706238.3.579.2.183451-50-9681Xfvgfog4270367 2.0.1.965825.3.579.2.242158-67-3595Lkfiqzf7397208 2.0.1.765138.3.579.2.211266-50-2722Khnexlx7490652 2.0.1.042307.3.579.2.289350-89-3013Lxcyqfl0179117 2..1.642271.3.579.2.010764-57-8514Usznhuq9369328 2..1.020654.3.579.2.863517-02-1646Gthxwfb4562465 2..1.440983.3.579.2.914996-10-1623Sunsezv5621050 2..1.480943.3.579.2.089410-08-4804Ocwdusl3069745 2..1.106697.3.579.2.115258-81-7310Pkjkaok0115925 2..1.537864.3.579.2.278309-86-5026Wqekvew4146101 2..1.569032.3.579.2.754559-73-4323Bufufmb4917119 2..1.142000.3.579.2.645662-63-2101Pgilvsd9899990 2.0.1.941647.3.579.2.551759-98-1022Lbtkgpa5559193 2.840.1.784562.3.579.2.0248Dxhekii92123080 2.0.1.663231.3.579.2.531 Social History DateTypeDetailFacilityTobacco smoking status NHISUnknown if ever smokedUniversity Hospitals Conneaut Medical Center Work Phone: Start: 01-72-4458Yjp [facility]igned [facility]: 10-22-2023 End: 60-81-0204Xyp Assigned At [facility] [employer] Other start: 07-12-2022 End: 38-79-9550Rxraeod smoking status NHISSmoker (finding)[facility] 08-23-2023 End: 15-13-1776Udbajxs smoking status NHISSmokes tobacco dailyUniversity Health Truman Medical Center History of tobacco useCigarette SmokerSAN [facility]UAN [facility]ITAL HealthcareStart: 08-23-2023 End: 18-33-3298Qiwbxssiul smoked current (pack per day) - Reported0.5[facility] HealthcareStart: 10-22-2023 End: 55-47-8110Kngzrtn intakeEx-drinker (finding)[facility] HealthcareStart: 96-92-0609Wijcwueab64HSFJ HealthcareStart: 90-77-5272Efynevx Comment6-10 cigs/dayNOLA HealthcareStart: 91-20-1762Isjtmud Commentcaffeine: 2-3 cups per daySAN JUAN HOSPITAL HealthcareStart: 66-11-6196Suf Assigned At BirthNot on fileSAN JUAN HOSPITAL HealthcareSexFemale (finding)[facility] Goals DatePatient GoalDesired Activity/State Functional Status McgkRtqemrnsicJwriqrQwiokclz23-60-2891Oyzbvxp Health Questionnaire 2 item (PHQ- 2) [Reported][facility] Clinical Notes 05-30-2022 to 05-19-2025 Note Date & NflqGtvaXopdhgtj29-13-7916 History of Present illness Narrative* Osei Arevalo [...] CARPAL TUNNEL RELEASE Right 07/26/2022 Dr Garcia, [facility] CHOLECYSTECTOMY HYSTERECTOMY IR JOINT ASPIRATION Right Arthrocentesis of the right knee joint VA KNEE SCOPE,DIAGNOSTIC Right Dr. Cardona VA MANIPULATION KNEE JOINT UNDER GENERAL ANESTHESIA Right [...] utilizing a nail nipper and electric bur grinder and honer operator automatic without incident. I have discussed the importance [...] understanding. Osei Arevalo DPM documented in this encounterUniversity Health Truman Medical CenterZvkizxlvty40-45-2185 Evaluation note* Diagnosis Onset Date Resolution Status Admit Date Lumbar stenosis acuteJuly 2024 8:18amSpondylolisthesis, lumbosacral regionacuteJuly 2024 8:18am [facility] Work Phone: 1([phone] 100-947107-24-2025 Evaluation note* Diagnosis Onset Date Resolution Status Admit Date Lumbar stenosis acuteJuly 2024 8:18amSpondylolisthesis, lumbosacral regionacuteJuly 2024 8:18amLumbar stenosisacuteAugust 2024 9:14amSpondylolisthesis, lumbosacral regionacuteAugust 2024 9:14am [facility] Work Phone: [phone] 850-382707-02-2025 History of Present illness Narrative* Will Tim [...] establish both winter and summer levels in [place]. We have discussed the proper type of [...] along with her duloxetine. documented in this encounterUniversity Health Truman Medical CenterDceabjtngh07-60-7088 History of Present illness Narrative* Will Tim [...] stratification for cardiovascular disease. documented in this [facility]05-28-2025 History of Present illness Narrative* Osei [...] CARPAL TUNNEL RELEASE Right 07/26/2022 Dr Garcia, [facility] CHOLECYSTECTOMY HYSTERECTOMY IR JOINT ASPIRATION Right Arthrocentesis of the right knee joint VA KNEE SCOPE,DIAGNOSTIC Right Dr. Cardona VA MANIPULATION KNEE JOINT UNDER GENERAL ANESTHESIA Right [...] utilizing a nail nipper and electric bur grinder and honer operator automatic without incident. I have discussed the importance [...] understanding. Osei Arevalo DPM documented in this encounterUniversity Health Truman Medical CenterMhwlqadmwf43-04-1363 History of Present illness Narrative* Will Tim [...] Yes Vision Screening: Yes, patient sees regular pilot manager/antenna design engineer Hearing Screening: Not done Cognitive Screening Self [...] arm Hyperlipidemia (CMS/HCC) Insulin resistance Postherpetic neuralgia ([facility]/HCC) Primary osteoarthritis of left knee Primary osteoarthritis of right knee Psoriasis (a type of skin inflammation) ([facility]) RA (rheumatoid arthritis) ([facility]) Reactive hypoglycemia Unspecified rotator cuff tear or rupture of left shoulder, not specified as traumatic Unspecified rotator cuff tear or rupture of right shoulder, not specified as traumatic SURGICAL HISTORY: Past Surgical History: Procedure Laterality Date APPENDECTOMY CARPAL TUNNEL RELEASE Right 07/26/2022 Dr Garcia, [facility] CHOLECYSTECTOMY HYSTERECTOMY IR JOINT ASPIRATION Right Arthrocentesis of the right knee joint VA KNEE SCOPE,DIAGNOSTIC Right Dr. Cardona VA MANIPULATION KNEE JOINT UNDER GENERAL ANESTHESIA Right [...] score (Roge POPE, et al., 2019, 2020 [place] [employer]) returns the percentage [...] lasted approximately 5-10 minutes documented in this encounterUniversity Health Truman Medical CenterObbdkxjxrw87-01-6560 History of Present illness Narrative* Michela Campos, [...] quite a bit throughout the day. Precautions: [place], bilateral TKA, fall risk Subjective: Pt states [...] instructed in home exercise program. - met Skilled Nursing Goals: To be met in 10 weeks [...] not met Discharge PT. documented in this encounterUniversity Health Truman Medical CenterCmgjpmxbur84-66-7266 History of Present illness Narrative* Osei Arevalo, [...] CARPAL TUNNEL RELEASE Right 07/26/2022 Dr Garcia, [facility] CHOLECYSTECTOMY HYSTERECTOMY IR JOINT ASPIRATION Right Arthrocentesis of the right knee joint VA KNEE SCOPE,DIAGNOSTIC Right Dr. Cardona VA MANIPULATION KNEE JOINT UNDER GENERAL ANESTHESIA Right [...] polyneuropathy associated with type 2 diabetes mellitus (CMS/[facility]) E11.42 Patient was examined and evaluated. Diabetic foot evaluation performed. Patient remains low risk for pedal complications. She does have some neuropathy and mild deformity but no preulcerative lesions. 9 toenails were debrided in length and thickness today utilizing a nail nipper and electric bur grinder and honer operator automatic without incident. I have discussed the importance [...] understanding. Osei Arevalo DPM documented in this encounterUniversity Health Truman Medical CenterHoanumkbdc69-82-3794 History of Present illness Narrative* Will Tim [...] foot pain (Primary) She is seeing her distribution clerk next week for nail hygiene and maintenance. [...] treatment with physical therapy and letting the distribution clerk do the injectionversus proceeding to try and [...] involving multiple sites with positive rheumatoid factor ([facility]) Comorbid condition certainly contributing to and complicating diagnosis. documented in this [facility]02-03-2025 Telephone encounter Note* Telephone Encounter - Will Tim MD - 10/20/2024 3:31 PM EST Prescription sent [facility] CenterCyflukqdma67-98-7786 Miscellaneous Notes* Telephone Encounter - Will Tim MD - 10/20/2024 3:31 PM EST Prescription sent * Telephone Encounter - Yolie Avitia - 10/20/2024 2:57 PM EST Sonia called, she stated she is out of refills on her Atorvastatin. She stated she was not sure why because everything else, she had plenty of. She is asking for a refill to be sent to [facility] for her. documented in this [facility]02-03-2025 Telephone encounter Note* Telephone Encounter - Yolie Avitia - 10/20/2024 2:57 PM EST Sonia called, she stated she is out of refills on her Atorvastatin. She stated she was not sure why because everything else, she had plenty of. She is asking for a refill to be sent to [facility] for her. [facility] CenterXdjgtdopcy88-97-6399 History of Present illness Narrative* Alexis Hawkins [...] mass index (BMI) of 40.0-44.9 in adult ([facility]) Carpal tunnel syndrome Dermatomyositis ([facility]) Diabetes mellitus ([facility]) Fibrosis of right knee joint GERD (gastroesophageal reflux disease) Glucose intolerance (impaired glucose tolerance) History of being hospitalized 08/2017 cellulitis, left arm Hyperlipidemia ([facility]) Insulin resistance Postherpetic neuralgia ([facility]) Primary osteoarthritis of left knee Primary osteoarthritis of right knee Psoriasis (a type of skin inflammation) ([facility]) RA (rheumatoid arthritis) ([facility]) Reactive hypoglycemia Unspecified rotator cuff tear or [...] questions. Aric Magana D.O. documented in this encounterUniversity Health Truman Medical CenterTzlitgljpu13-07-5082 History of Present illness Narrative* Osei Arevalo, [...] CARPAL TUNNEL RELEASE Right 07/26/2022 Dr Garcia, [facility] CHOLECYSTECTOMY HYSTERECTOMY IR JOINT ASPIRATION Right Arthrocentesis of the right knee joint VA KNEE SCOPE,DIAGNOSTIC Right Dr. Cardona VA MANIPULATION KNEE JOINT UNDER GENERAL ANESTHESIA Right [...] polyneuropathy associated with type 2 diabetes mellitus ([facility]) E11.42 4. Primary osteoarthritis of left ankle M19.072 5. Primary osteoarthritis of right ankle M19.071 Patient was examined and evaluated. 9 toenails were debrided in length and thickness today utilizing a nail nipper and electric bur grinder and honer operator automatic without incident. I have discussed the importance [...] understanding. Osei Arevalo DPM documented in this [facility]10-29-2024 History of Present illness Narrative* Alen [...] not require another colonoscopy. documented in this [facility]10-17-2024 History of Present illness Narrative* Will [...] Flowsheet Row Patient Outreach from 07/01/2024 in [facility] with Jennifer Desai [facility] Information ED, Hospital or Correction Facility Discharge? ED Patient has been contacted within 1 week of being seen in the ED Yes Diagnosis Left Jaw Pain/ TMJ Discharge Date 06/27/24 Discharged To: Home Setting Discharge Hospital [facility] Engagement Call Start Time 1535 Admission [...] Wrap Up Additional Comments Pt presented to [facility] ER on 06/27 with left jaw [...] steroid intervention. I talked to her about bnns-ahs-anqiyve bite guards for nighttime. 8. Encounter for [...] transition of care note is reviewed. a bjro-pv-bojv evaluation is done today. Medical decision making [...] could do chair exercises. documented in this encounterUniversity Health Truman Medical CenterNajconytyy66-62-6563 History of Present illness Narrative* Will Tim [...] orders from a preventative aspect. She will exchange floor manager to these once she has the rash [...] frequency of further recurrences. documented in this encounterUniversity Health Truman Medical CenterKuvxcxxzhu79-58-0739 Telephone encounter Note* Telephone Encounter - Vanda Wheatley - 06/02/2024 12:45 PM EDT Okay she wants to know if that was sent to [facility] in [place]? [facility] CenterQjmxemcspa07-79-6570 Miscellaneous Notes* Telephone En[facility] - [facility] - 06/02/2024 12:45 PM EDT Okay she wants to know if that was sent to [facility] in [place]? * [facility] En[facility] - 06/02/2024 10:43 AM EDT Patient called stating she is having bad foot pain and this week she can't get in for a appointment, does this patient need to be seen before you prescribe her prednisone? documented in this encounterUniversity Health Truman Medical CenterEjmrjqynoj13-28-1759 Telephone encounter Note* Telephone Encounter - Vandajose Randallcookiev[facility] - 06/02/2024 10:43 AM EDT Patient called stating she is having bad foot pain and this week she can't get in for a appointment, does this patient need to be seen before you prescribe her prednisone? [facility] CenterSsduesaxrj95-38-9639 History of Present illness Narrative* Alen Rausch [...] mass index (BMI) of 40.0-44.9 in adult ([facility]) Carpal tunnel syndrome Dermatomyositis ([facility]) Diabetes mellitus ([facility]) Fibrosis of right knee joint GERD (gastroesophageal reflux disease) Glucose intolerance (impaired glucose tolerance) History of being hospitalized 08/2017 cellulitis, left arm Hyperlipidemia ([facility]) Insulin resistance Postherpetic neuralgia ([facility]) Primary osteoarthritis of left knee Primary osteoarthritis of right knee Psoriasis (a type of skin inflammation) ([facility]) RA (rheumatoid arthritis) ([facility]) Reactive hypoglycemia Unspecified rotator cuff tear or [...] CARPAL TUNNEL RELEASE Right 07/26/2022 Dr Garcia, [facility] CHOLECYSTECTOMY HYSTERECTOMY IR JOINT ASPIRATION Right Arthrocentesis of the right knee joint VA KNEE SCOPE,DIAGNOSTIC Right Dr. Cardona VA MANIPULATION KNEE JOINT UNDER GENERAL ANESTHESIA Right [...] colonoscopy in 10 years. documented in this encounterUniversity Health Truman Medical CenterHdaqsybnnn89-63-6335 History of Present illness Narrative* Vivek Engle, GAS APPLIANCE ADJUSTER - 05/13/2024 9:00 AM EDT Images from [...] develop for requiring urgent evaluation. Vivek Engle APRN-REFINED SYRUP OPERATOR documented in this encounterUniversity Health Truman Medical CenterNoxxwoheih84-32-6035 Note [id number]02-13-[address] MAGANA'S POST OPERATIVE SHOULDER [...] or concerns, please call the office at [phone]. 7. Follow up as scheduled.[facility]Gihywciz57-26-9850 [facility] Clinical Discharge Summary PERSON INFORMATION Name DISHA DE LA GARZA Age 73 Years 1950 Sex FEMALE Language Amharic PCP WILL TIM Marital Status Single Med Service Observation Acct# Arrival 10/29/2023 08:16:12 Visit Reason SURGERY - RIGHT REVERSE TOTAL SHOULDER - ARTHREX Acuity LOS 000 26:22 Address: [address] [place] [address] Comment: PROVIDER INFORMATION VITALS INFORMATION Vital Sign [...] Follow up: With: Address: When: TREY RICHMOND [address] [place] [address], [facility] [address] [place] [address] Business (1) 11/05/2023 11:30 AM With: Address: When: WILL TIM [address] [place] [address] [place] [address] Business (1) With: Address: When: Alexis Magana [address] [place] [address] [address] [place] [address] Business (1) 11/06/2023 10:00 AM DIAGNOSIS Arthritis of right glenohumeral joint Comment: JARRELL BULLOCK [facility]02-06-2024 Telephone encounter Note* Telephone Encounter - Vivek Engle NP - 10/23/2023 11:46 AM EST Post op pain rx. PDMP reviewed. [facility] CenterUunrtocnyw56-15-6840 Miscellaneous Notes* Telephone Encounter - Vivek Engle NP - 10/23/2023 11:46 AM EST Post op pain rx. PDMP reviewed. documented in this encounterUniversity Health Truman Medical CenterBihxwdtlyd10-19-8263 Evaluation note* Encounter Date Diagnosis Assessment Notes [...] needed Basis. Sutures were removed without difficulty [employer] Other 10-06-2022 Evaluation note* Encounter Date Diagnosis [...] without myelopathy or radiculopathy (ICD-10 - M47.812) [employer] Other 09-13-2022 NotePROCEDURE: Multiplanar, multisequence imaging including [...] and signed by Greg Vargas on 05/31/2022 0717[facility]ortL[facility] Medical SpecialistEvaluation noteNo assessment information availableThe [facility] Hospital Ctr Work Phone: Evaluation noteNo InformationNort [employer] Other evaluation note* Diagnosis Post-operative pain- Primary Other acute postoperative pain documented in this encounter [facility] HealthcareEvaluation note* Diagnosis Yeast dermatitis Polypharmacy [...] acuteJuly 2024 8:18amSpondylolisthesis, lumbosacral regionacuteJuly 2024 8:18am [facility] Work Phone: Evaluation note* Diagnosis Onychomycosis- Primary Dermatophytosis of nail Onychodystrophy Other specified disease of nail Diabetic polyneuropathy associated with type 2 diabetes mellitus (HCC) documented in this encounter [facility] HealthcareHistory general Narrative - Reported* Type Description Date Medical History Hyperlipemia Medical HistoryDERMATOMYOSITISMedical HistoryPsoriasisMedical HistoryDiabetes Surgical HistoryhysterectomySurgical HistoryappendectomySurgical History tonsillectomy and adenoidectomySurgical HistorycholecystectomySurgical History left knee lqibufbtbgm35/4/19Surgical Historyright knee nerve block Hospitalization Historysee above surgical history [employer] Other Hospital Discharge instructions Additional Instructions DISCHARGE [...] appointment to see your physician in two weeks.[facility] Work Phone: Rebhdp for referral (narrative)No reason for referral information availableMarietta Memorial Hospital Work Phone: Reason for visit Narrative* Rehabilitation - Outpatient (Routine) - AuthorizedSpecialtyDiagnoses / ProceduresReferred By ContactReferred To ContactPhysical Therapy Diagnoses Chronic pain syndrome Right foot pain Right leg weakness Neuropathy Procedures [facility] OFFICE[facility]PATIENT [facility] 60 MINUTES Will Tim MD [address] [place] [address] Phone: tel: fax: Michela Campos PT Referral IDStatusReasonStart DateExpiration DateVisits RequestedVisits [id number] Specialty Services Required [facility] HealthcareReason for visit Narrative* Rehabilitation - Outpatient (Routine) - ClosedSpecialtyDiagnoses / ProceduresReferred By ContactReferred To Contact Physical Therapy Diagnoses Chronic pain syndrome Right foot pain Right leg weakness Neuropathy Procedures [facility] OFFICE/OUTPATIENT [facility] 60 MINUTES Will Tim MD [address] [facility] [address] [place] [address] Phone: tel: fax: Michela Campos, MAHNAZ Referral IDStatusReasonStart DateExpiration DateVisits RequestedVisits [id number] Specialty Services Required [facility] Healthcare Summary Purpose Family History No [...] WillAdvance Directives and Living Will Power Of Web Site Project Manager Chief Complaint and Reason for Visit Chief [...] tunnel syndro me, 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) Referral Organization [facility] urosurgery Referring Provider First Name Willie Referring Provider Last Name Radha Referring Provider Specialty Neurologica l Surgery Referred Organization [facility] Referred Provider Thomas Horner Referred Address [address] [place], [place],[address] Referred Provider Specialty Neurology Referral Priority Routine Additional Source Comments INFORMATION SOURCE (unrecogn ized section and content) DATE CREATED AUTHOR 04/06/2022 [facility] DATE CREATED AUTHOR AUTHOR'S ORGANIZ ATION 06/13/2022 [facility] 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 DATE CREATED AUTHOR AUTHOR'S ORGANIZ ATION 08/19/2022 [facility] DATE CREATED AUTHOR AUTHOR'S ORGANIZ ATION 02/03/2024 [facility] DATE CREATED AUTHOR AUTHOR'S ORGANIZ ATION 04/06/2025 [facility] DATE CREATED AUTHOR AUTHOR'S ORGANIZ ATION 04/10/2025 [facility] DATE CREATED AUTHOR AUTHOR'S ORGANIZ ATION 05/20/2025 [facility] DATE CREATED AUTHOR AUTHOR'S ORGANIZ ATION 05/29/2025 [facility] Care Teams (unrecognized sec tion and content) Team Status: Inactive Member Role Status Dates Willie Garcia MD Attending Provider Active Ernie Albarran Care ProviderActive Team Status: Active Member Role Status Dates Will Tim MD Primary Care Provider Active Team Status: Inactive Member Role Status Dates Will Tim MD Primary Care Provider Active Willie Garcia MDAnationwide children's hospital ProviderActiveTeam MemberRelationshipSpecialtyStart DateEnd Date Will Tim MD [address] [place] [id number] PCP - GeneralFamily Medicine02/08/23 Will Tim MD [address] [place] [address] (Fax) PCP - ACO [facility]02/08/23 Alexis Magana DO [address] [place] [address] Referring PhysicianOrthopaedic Surgery10/25/23 Jeet Uriarte MD [address] [facility] Professional building 1 [place] [address] Referring PhysicianRheumatolog10/25/23 Osei Arevalo DPM [address] [place] [address] Referring PhysicianPodiatry2Team MemberRelationshipSpecialtyStart DateEnd Date Will Tim MD [address] [place] [address] PCP - Generalmi Medicine02/08/23 Will Tim MD [address] [place] [address] (Fax) PCP - [facility]02/08/23 Alexis Magana DO [address] [place] [address] Referring PhysicianOrthopaedic Surgery10/25/23 Jeet Uriarte MD [address] [facility] Professional building 1 [place] [phone] Referring PhysicianRheumatolog10/25/23 Osei Arevalo DPM [address] [place] [address] Referring PhysicianPodiatr10/25/23Team MemberRelationshipSpecialtyStart DateEnd Date Will Tim MD [address] [facility] [place] [address] PCP - GeneralFamily Medicine02/08/23 Will Tim MD [address] [place] [address] PCP - [facility]02/08/23 Alexis Magana DO [address] [address] Referring PhysicianOrthopaedic Surgery10/25/23 Jeet Uriarte MD [address] [facility] Professional building 1 [place] [phone] Referring PhysicianRheumatolog10/25/23 Osei Arevalo DPM [address] [place] [address] Referring PhysicianPodiatr10/25/23Team MemberRelationshipSpecialtyStart DateEnd Date Will Tim MD [address] [place] [place] [address] [facility] - [facility]/23 Will Tim MD [address] [place] [address] (Fax) PCP - [facility]02/08/23 Alexis Magana DO [address] [place] [address] Referring PhysicianOrthopaedic Surgery10/25/23 Jeet Uriarte MD [address] [facility] Professional building 1 [place] [address] Referring PhysicianRheumatolog10/25/23 Osei Arevalo DPM [address] [place] [address] Referring PhysicianPodiatr10/25/23Team MemberRelationshipSpecialtyStart DateEnd Date Will Tim MD [address] [place] [address] [facility] - [facility]02/08/23 Will Tim MD [address] [place] [address] (Fax) PCP - [facility]02/08/23 Alexis Magana DO [address] [facility] [address] [place] [address] Referring PhysicianOrthopaedic Surgery10/25/23 Jeet Uriarte MD [address] [facility] Professional building 1 [place] [address] Referring PhysicianRheumatolog10/25/23 Osei Arevalo DPM [address] [place], [place] [address] Referring PhysicianPodiatr10/25/23Team MemberRelationshipSpecialtyStart DateEnd Date Will Tim MD (Fax) PCP - GeneralFamily Medicine02/08/23 Will Tim MD 112 [facility] 100 [place] [address] (Fax) PCP - [facility]02/08/23 Alexis Magana DO [address] [facility] [address] [place] [address] Referring PhysicianOrthopaedic Surgery10/25/23 Jeet Uriarte MD [address] [facility] Professional building 1 [place] [address] Referring PhysicianRheumatolog10/25/23 Osei Arevalo DPM [address] [place], [place] [phone] Referring PhysicianPodiatr10/25/23Team MemberRelationshipSpecialtyStart DateEnd Date Will Tim MD (Fax) PCP - GeneralFamily Medicine02/08/23 Will Tim MD [address] [place] [address] (Fax) PCP - [facility]02/08/23 Alexis Magana DO [address] [place] [address] Referring PhysicianOrthopaedic Surgery10/25/23 Jeet Uriarte MD [address] [place] [address] Referring PhysicianRheumatolog10/25/23 Osei Arevalo DPM [address] [place], [place] [address] [place], [place] [phone] Referring PhysicianPodiatr10/25/23Team MemberRelationshipSpecialtyStart DateEnd Date Will Tim MD (Fax) [facility]02/[facility]/23 Will Tim MD [address] [place] [address] (Fax) PCP - [facility]02/08/23 Alexis Magana DO [address] [place] [address] Referring PhysicianOrthopaedic Surgery10/25/23 Jeet Uriarte MD [address] [place] [address] Referring PhysicianRheumatology2 Osei Arevalo DPM [address] [place] [address] Referring PhysicianPodiatry2Team MemberRelationshipSpecialtyStart End Will Tim MD (Fax) PCP - GeneralFamily Medicine02/08/23 Will Tim MD [address] [address] (Fax) PCP - [facility]02/08/23 Alexis Magana DO [address] [facility] 150 [place] [address] Referring PhysicianOrthopaedic Surgery10/25/23 Jeet Uriarte MD [address] [facility] Professional building 1 [place] [address] Referring PhysicianRheumatolog10/25/23 Osei Arevalo DPM [address] [place] [address] Referring PhysicianPodiatry2Team MemberRelationshipSpecialtyStart DateEnd Will Tim MD (Fax) PCP - GeneralFamily Medicine02/08/23 Will Tim MD [address] [address] (Fax) PCP - [facility]02/08/23 Alexis Magana DO [address] [facility] 150 [place] [address] Referring PhysicianOrthopaedic Surgery10/25/23 Jeet Uriarte MD [address] [facility] Professional [address] [phone] Referring PhysicianRheumatolog10/25/23 Osei Arevalo DPM [address] [place] [address] Referring PhysicianPodiatr10/25/23Team MemberRelationshipSpecialtyStart DateEnd Date Will Tim MD [address] [facility] [place] [address] PCP - GeneralFamily Medicine02/08/23 Will Tim MD 521 [place] [address] PCP - [facility]02/08/23 Alexis Magana DO [address] [address] Referring PhysicianOrthopaedic Surgery10/25/23 Jeet Uriarte MD [address] [facility] Professional [address] [phone] Referring PhysicianRheumatolog10/25/23 Osei Arevalo DPM [address] [place], [place] [address] Referring PhysicianPodiatr10/25/23Team MemberRelationshipSpecialtyStart DateEnd Date Will Tim MD [address] [place] [address] PCP - GeneralFamily Medicine02/08/23 Will Tim MD [address] [place] [address] (Fax) PCP - [facility]02/08/23 Alexis Magana DO [address] [place] [address] Referring PhysicianOrthopaedic Surgery10/25/23 Jeet Uriarte MD [address] [facility] Professional building 1 [place] [address] Referring PhysicianRheumatolog10/25/23 Osei Arevalo DPM [address] [place] [address] Referring PhysicianPodiatr10/25/23Team MemberRelationshipSpecialtyStart DateEnd Date Will Tim MD [address] [place] [address] [facility] - [facility]02/08/23 Will Tim MD [address] [place] [address] (Fax) PCP - [facility]02/08/23 Alexis Magana DO [address] [facility] 150 [place] [address] Referring PhysicianOrthopaedic Surgery10/25/23 Jeet Uriarte MD [address] [facility] [address] [place] [address] Referring PhysicianRheumatolog10/25/23 Osei Arevalo DPM [address] [place] [address] Referring PhysicianPodiatr10/25/23Team MemberRelationshipSpecialtyStart DateEnd Date Will Tim MD (Fax) PCP - GeneralFamily Medicine02/08/23 Will Tim MD [address] [place] [address] (Fax) PCP - [facility]02/08/23 Alexis Magana DO [address] [place] [address] Referring PhysicianOrthopaedic Surgery10/25/23 Jeet Uriarte MD [address] [facility] Professional building 1 [place] [address] Referring PhysicianRheumatolog10/25/23 Osei Arevalo DPM [address] [place] [address] Referring PhysicianPodiatr10/25/23Team MemberRelationshipSpecialtyStart DateEnd Date Will Tim MD (Fax) PCP - GeneralFamily Medicine02/08/23 Will Tim MD [address] [place] [address] PCP - [facility]02/08/23 Alexis Magana DO [address] [place] [address] Referring PhysicianOrthopaedic Surgery10/25/23 Jeet Uriarte MD [address] [facility] [address] [place] [address] Referring PhysicianRheumatolog10/25/23 Osei Arevalo DPM [address] [place] [address] Referring PhysicianPodiatr10/25/23Team MemberRelationshipSpecialtyStart DateEnd Date Will Tim MD (Fax) PCP - Generalmi Medicine02/08/23 Will Tim MD [address] [place] [address] (Fax) PCP - [facility]02/08/23 Alexis Magana DO [address] [place] [address] Referring PhysicianOrthopaedic Surgery10/25/23 Jeet Uriarte MD [address] [place] [address] Referring PhysicianRheumatolog10/25/23 Osei Arevalo DPM [address] [place] [address] Referring PhysicianPodiatry2Team MemberRelationshipSpecialtyStart DateEnd Date Will Tim MD (Fax) PCP - GeneralFamily Medicine02/08/23 Will Tim MD [address] [place] [address] (Fax) PCP - [facility]02/08/23 Alexis Magana DO [address] [place] [address] Referring PhysicianOrthopaedic Surgery10/25/23 Jeet Uriarte MD [facility] Professional building [address] [place] [phone] Referring PhysicianRheumatolog10/25/23 Osei Arevalo DPM [address] [place] [address] Referring PhysicianPodiatry2Team MemberRelationshipSpecialtyStart DateEnd Date Will Tim MD (Fax) PCP - GeneralFamily Medicine02/08/23 Will Tim MD [address] [place] [address] (Fax) PCP - [facility]02/08/23 Alexis Magana DO [address] [place] [address] Referring PhysicianOrthopaedic Surgery10/25/23 Jeet Uriarte MD [address] [facility] Professional building 1 [place] [address] Referring PhysicianRheumatology2 Osei Arevalo DPM [address] [place] [address] Referring PhysicianPodiatr10/25/23Team MemberRelationshipSpecialtyStart DateEnd Date Will Tim MD [address] [place] [address] PCP - [facility]02/08/23 Alexis Magana DO [address] [place] [address] Referring PhysicianOrthopaedic Surgery10/25/23 Jeet Uriarte MD [address] [facility] Professional building [address] [place] [phone] Referring PhysicianRheumatolog10/25/23 Osei Arevalo DPM [address] [place] [address] Referring PhysicianPodiatry2Team MemberRelationshipSpecialtyStart DateEnd Date Will Tim MD [address] [place] [address] PCP - O [facility]02/08/23 Alexis Magana DO [address] [place] [address] Referring PhysicianOrthopaedic Surgery10/25/23 Jeet Uriarte MD [address] [facility] Professional building [address] [place] [phone] Referring PhysicianRheumatology2 Osei Arevalo DPM [address] [place] [address] Referring PhysicianPodiatr10/25/23Team MemberRelationshipSpecialtyStart DateEnd Date Will Tim MD [address] [place] [address] (Fax) PCP - [facility]02/08/23 Alexis Magana DO [address] [place] [address] Referring PhysicianOrthopaedic Surgery10/25/23 Jeet Uriarte MD [address] [facility] Professional [address] [phone] Referring PhysicianRheumatolog10/25/23 Osei Arevalo DPM [address] [place] [address] Referring PhysicianPodiatr10/25/23Team MemberRelationshipSpecialtyStart DateEnd Date Will Tim MD [address] [place] [address] PCP - [facility]02/08/23 Alexis Magana DO [address] [place] [address] Referring PhysicianOrthopaedic Surgery10/25/23 Jeet Uriarte MD [address] [facility] Professional building [address] [place] [phone] Referring PhysicianRheumatolog10/25/23 Osei Arevalo DPM [address] [place] [address] Referring PhysicianPodiatr10/25/23Team MemberRelationshipSpecialtyStart DateEnd Date Will Tim MD [address] [facility] 100 [place] [address] (Fax) PCP - [facility]02/08/23 Alexis Magana DO [address] [place] [address] 150 [place] [address] Referring PhysicianOrthopaedic Surgery10/25/23 Jeet Uriarte MD [address] [facility] Professional building [address] [place] [phone] Referring PhysicianRheumatolog10/25/23 Osei Arevalo DPM [address] [place] [address] Referring PhysicianPodiatr10/25/23Team MemberRelationshipSpecialtyStart DateEnd Date Will Tim MD [address] [facility] 100 [place] [address] PCP - [facility]02/08/23 Alexis Magana DO [address] [place] [address] Referring PhysicianOrthopaedic Surgery10/25/23 Jeet Uriarte MD [address] [facility] Professional building 1 [place] [address] Referring PhysicianRheumatolog10/25/23 Osei Arevalo DPM [address] [place] [address] Referring PhysicianPodiatr10/25/23Team MemberRelationshipSpecialtyStart DateEnd Date Will Tim MD [address] [place] [address] (Fax) PCP - [facility]02/08/23 Alexis Magana DO [address] [facility] [address] [place] [address] Referring PhysicianOrthopaedic Surgery10/25/23 Jeet Uriarte MD [address] [facility] Professional building 1 [place] [address] Referring PhysicianRheumatolog10/25/23 Osei Arevalo DPM [address] [place] [address] Referring PhysicianPodiatr10/25/23Team MemberRelationshipSpecialtyStart DateEnd Date Will Tim MD [address] [place] [address] PCP - [facility]02/08/23 Alexis Magana DO [address] [facility] [address] [place] [address] Referring PhysicianOrthopaedic Surgery10/25/23 Jeet Uriarte MD [address] [facility] Professional building 1 [place] [address] Referring PhysicianRheumatolog10/25/23 Osei Arevalo DPM [address] [place] [address] Referring PhysicianPodiatr10/25/23Team MemberRelationshipSpecialtyStart DateEnd Date Will Tim MD [address] [facility] 100 [place] [address] (Fax) [facility]02/08/23 Alexis Magana DO [address] [facility] [address] [place] [address] Referring PhysicianOrthopaedic Surgery10/25/23 Jeet Uriarte MD [address] [facility] Professional building 1 [place] [address] Referring PhysicianRheumatolog10/25/23 Osei Arevalo DPM [address] [place] [address] Referring PhysicianPodiatry2Team MemberRelationshipSpecialtyStart DateEnd Will Tim MD [address] [place] [address] (Fax) PCP - [facility]02/08/23 Alexis Magana DO [address] [place] [address] Referring PhysicianOrthopaedic Surgery10/25/23 Jeet Uriarte MD [address] [facility] Professional building 1 [place] [address] Referring PhysicianRheumatolog10/25/23 Osei Arevalo DPM [address] [place] [address] Referring PhysicianPodiatr10/25/23Team MemberRelationshipSpecialtyStart DateEnd Date Will Tim MD [address] [place] [address] (Fax) PCP - [facility]02/08/23 iWll Tim MD [address] [place] [address] (Fax) PCP - GeneralFamily Medicine02/10/25 Jeet Uriarte MD [address] [facility] Professional building 1 [place] [address] Referring PhysicianRheumatolog10/25/23 Osei Arevalo DPM [address] [place] [address] Referring PhysicianPodiatr10/25/23Team MemberRelationshipSpecialtyStart DateEnd Date Will Tim MD [address] [place] [address] (Fax) PCP - [facility]02/08/23 Will Tim MD [address] [address] (Fax) [facility] - [facility]02/10/25 Jeet Uriarte MD [address] [facility] Professional building 1 [place] [address] Referring PhysicianRheumatology2 Osei Arevalo DPM [address] [place] [address] Referring PhysicianPodiatry2Team MemberRelationshipSpecialtyStart DateEnd Will Tim MD [address] [place] [address] (Fax) PCP - [facility]02/08/23 Will Tim MD [address] [address] (Fax) PCP - [facility]02/10/25 Jeet Uriarte MD [address] [facility] Professional building [address] [place] [phone] Referring PhysicianRheumatology2 Osei Arevalo DPM [address] [place] [address] Referring PhysicianPodiatry2Team MemberRelationshipSpecialtyStart DateEnd Date Will Tim MD [address] [address] (Fax) PCP - [facility]02/08/23 Jeet Uriarte MD [address] [facility] Professional building 1 [place] [address] Referring PhysicianRheumatolog10/25/23 Osei Arevalo DPM [address] [place] [address] Referring PhysicianPodiatr10/25/23Team MemberRelationshipSpecialtyStart DateEnd Will Tim MD [address] [address] (Fax) PCP - [facility]02/08/23 Will Tim MD [address] [address] (Fax) PCP - GeneralFamily Medicine02/10/25 Jeet Uriarte MD [address] [facility] Professional building [address] [place] [phone] Referring PhysicianRheumatology2 Osei Arevalo DPM [address] [place] [address] Referring PhysicianPodiatr10/25/23Team MemberRelationshipSpecialtyStart DateEnd Date Will Tim MD [address] [address] (Fax) PCP - [facility]02/08/23 Will Tim MD [address] [place] [address] (Fax) PCP - GeneralFamily Medicine02/10/25 Jeet Uriarte MD [address] [place] [address] Referring PhysicianRheumatolog10/25/23 Osei Arevalo DPM [address] [place] [address] Referring PhysicianPodiatry2 Team Status: Inactive Member Role Status Dates iWll Tim MD Primary Care Provider Active Start: April 09, 2025 End: April 09, 2025Maninder Stoddard ProviderActiveStart: April 09, 2025 End: April 09, 2025 Team Status: Inactive Member Role Status Dates Will Tim MD Primary Care Provider Active Start: May 12, 2025 End: May 12, 2025Maninder Stoddard ProviderActiveStart: May 12, 2025 End: May 12, 2025Team MemberRelationshipSpecialtyStart DateEnd Date Will Tim MD [address] [place] [address] (Fax) PCP - [facility]02/08/23 Will Tim MD [address] [place] [address] (Fax) PCP - [facility]02/10/25 Jeet Uriarte MD [address] [place] [address] Referring PhysicianRheumatolog10/25/23 Osei Arevalo DPM [address] [place] [address] Referring PhysicianPodiatry2Team MemberRelationshipSpecialtyStart DateEnd Will Tim MD [address] [place] [address] (Fax) PCP - [facility]02/08/23 Will Tim MD [address] [place] [address] (Fax) PCP - [facility]02/10/25 Jeet [facility]arte MD [address] [facility] [address] [place] [address] Referring PhysicianRheumatology2 Osei Arevalo DPM [address] [place] [address] Referring PhysicianPodiatry2Team MemberRelationshipSpecialtyStart DateEnd Will Tim MD [address] [place] [address] (Fax) PCP - O [facility]02/08/23 Will Tim MD [address] [place] [address] (Fax) PCP - [facility]02/10/25 Jeet Uriarte MD [address] [place] [address] Referring PhysicianRheumatolog10/25/23 Osei Arevalo DPM [address] [place] [address] Referring PhysicianPodiatr10/25/23 Goals (unrecognized section and content) Goals may be documented in a n alternate sectionNo InformationGoals may be documented in an alternate sectionGoals may be documented in an alternate sectionNo InformationNo InformationGoals may be documented in an alternate sectionGoals may be documented in an alternate sectionGoals may be documented in an alternate section REASON FOR VISIT (unrecogniz ed section and content) PeyqewRhjcauhpAbgyCqpwhwQapaksslGmbazebjphkxIsiutmztvyofrfJupgxsAxexenzk7mo po colonoscopyReasonCommentsDM Foot CareBev Pinky De La Garza is a 74 y.o. female who presents for DM Foot Care. A1C 5.7 Dr. Davidson 07/03/2024 SS:9-9.5WReason CommentsFollow-upReasonOnset DateCommentsAdvice Only4ReasonComments ConsultColonoscopy- positive cologuardSpecialtyDiagnoses / ProceduresReferred By ContactReferred To ContactGeneral Surgery Diagnoses Encounter for screening for malignant neoplasm of colon Procedures [facility] OFFICE/OUTPATIENT NEW HIGH MDM 60 MINUTES Will Tim MD [address] [place] [address] Alen Arshad MD [address] [address] Referral IDStatusReasonStart DateExpiration DateVisits RequestedVisits [id number] Specialty Services Required [id number] PainReasonCommentsDM Foot CarePCP: Dr. Stuart RENAE 10/27/24, [...] BE BASED ON THE PRIMARY CLINICAL RECORDS. [employer] [facility]. provides no warranty or guarantee of the accuracy or completeness of information in this document.
[2025-07-20 08:31] VITALS: BP 121/81; PULSE 89; TEMP 36.9; O2SAT 99
[2025-07-20 09:04] VITALS: BP 138/72; PULSE 86; O2SAT 91
[2025-07-20] MEDS: BUPIVACAINE HCL 0.25% PF 25 MG/10 ML VIAL INJ (09:04)
[2025-07-20] MEDS: 0.9 % SODIUM CHLORIDE 10 ML SYRINGE - SALINE FLUSH INJ (09:04)
[2025-07-20] MEDS: METHYLPREDNISOLONE ACETATE 80 MG/ML VIAL INJ (09:05)
[2025-07-20] MEDS: IOHEXOL 240 MG/ML - 10 ML VIAL 24 MG INJ (09:05)
[2025-07-20] MEDS: LIDOCAINE HCL 2% 400 MG/20 ML MDV INJ (09:05)
[2025-07-20 09:06] VITALS: BP 134/73; PULSE 85; O2SAT 94
--- NOTE | 2025-07-20 09:12 | P.ON_ITS ---
Date of procedure: 07/20/25 Pre-op diagnosis: Pain due to lumbar stenosis with neurogenic claudication Post-op diagnosis: same as pre-op Procedure: Procedure: Right L4-5, L5-S1 transforaminal epidural steroid injection Medications: Bupivacaine 0.25% 2cc, lidocaine 2% 1cc, depomedrol 80mg The patient was seen and examined in the preoperative holding area.? Informed consent was obtained and placed on the chart.? Patient was brought to the medical procedure unit and placed in the prone position where a timeout was completed verifying the correct patient, procedure site, position, and planned special equipment using sterile aseptic technique.? Under direct fluoroscopic visualization a 25-gauge Quincke tipped spinal needle was advanced to the designated neural foramen where contrast dye was injected to show adequate spread.? The needle was inserted at level right L4-5. There was no evidence of vascular or adverse uptake.? Epidural spread was appreciated.? The above- mentioned injectate was then placed in a 1.5 mL aliquot preceded by negative aspiration.? The needle was removed. The needle was inserted and the procedure repeated at level right L5-S1.? The surgery site was covered.? Patient was taken to the postprocedural recovery area and monitored for an appropriate length of time before found suitable for discharge in the accompaniment of a responsible adult. Anesthesia: Local Surgeon: Leonel Issa Pathology: none sent Condition: stable Disposition: no change
== END 2025-07-20 09:17 | disposition home or self-care (01) ==
PROVIDERS: PCP Family Medicine; Visit Provider Anesthesiology
DX: M48.062 Spinal stenosis, lumbar region with neurogenic claudication (principal); M54.50 Low back pain, unspecified; E11.8 Type 2 diabetes mellitus with unspecified complications; Z79.84 Long term (current) use of oral hypoglycemic drugs
CPT/HCPCS: 36415; 64483; 64484; 82948; J0665; J1010; Q9966

== ENCOUNTER 2025-07-30 13:36 | Outpatient (OUT) | payer MEDICARE, OTHER, SELFPAY ==
--- OUTSIDE RECORDS SUMMARY | 2025-07-30 13:38 | XMS_ITS | Clinical Summary ---
Author Organization General Bloods tem Address [id number] [address] [place] [address] Care Team Providers Care Taximeter Repairer Name Role Phone Will Alvarez MD Primary Care Provider + [phone] Allergies Active AllergyReactionsCriticalityNoted DateCommentsLevofloxacinRashLow 05/02/20230917BcquqiognphwljjcwnOrgeMhu94/03/2021 Medications MedicationSigDispense QuantityRefillsLast FilledStart DateEnd DateStatus methotrexate 2.5 mg chemo tablet Indications:rheumatoid arthritisTake 1 tablet by mouth once a week 8 tabs every Sunday Indications: rheumatoid arthritisActive gnjiagqv-igkg-VT-calcium &mins (THERAGRAN-M) 9 mg iron-400 mcg tablet [...] ProblemNoted DateDiagnosed DateUrge incontinence of urine05/02/2023symptomatic microscopic vsuakuway86/15/2023Left rotator cuff tear jxnkfehamnx30/14/2023 Neuropathy of left lower wdqicbrib11/25/2023Leg length /25/2023 Degenerative disc disease, wmbiwnom75/25/2023hronic pain /12/2021 Recurrent azhrqbfvh95/27/2021hronic tqornnk7705/25/2021nkylosis of knee joint 02/03/2021tatus post right knee mbpafbwsoio42/12/2021rimary osteoarthritis of right knee11/09/2020Unspecified rotator cuff tear or rupture of left shoulder, not specified as zxugdbiuw68/16/2020Gastroesophageal reflux disease without cccoesvydbs38/27/2020Chronic primary angle-closure glaucoma of both eyes 02/11/2020Rheumatoid xpslbuooz53/19/1620Hcwvwqr24/24/2020Artificial knee joint pgsijzy1607/29/2019Difficulty kwdlawe5507/27/2019Venous mpibnsbpwmjbo82/14/2019 Recurrent major depressive disorder, in partial qaebryjcv32/14/2019Mixed ocguiorkamomlr98/06/2018Essential foatxvhbngaw92/13/2017 Family History Medical HistoryRelationNameCommentsDiabetesFatherDiabetesMotherAnesthesia problemsNeg HxRelationNameStatusCommentsFatherMother Social History Tobacco UseTypesPacks/DayYears UsedDateSmoking Tobacco: Every DayCigarettes0.342 Passive Smoke Exposure: PastSmokeless Tobacco: NeverAlcohol UseStandard Drinks/WeekCommentsNever0 (1 standard drink = 0.6 oz pure alcohol)AUDIT-CAnswer Date RecordedQ1: How often do you have a drink containing alcohol?Never 10/20/2020verage Number of DrinksNot on file10/20/2020Frequency of Binge DrinkingNot on file10/20/2020HQ-2AnswerDate RecordedTotal Qplqz585 Housing InstabilityAnswerDate RecordedAre you worried or concerned that in the next two months you may not have stable housing that you own, rent or stay in as a part of a household?No05/16/2023hildcareAnswerDate RecordedDo problems getting childcare teacher make it difficult for you to [...] InformationValueDate RecordedSex Assigned at BirthNot on fileLegal EmoVqueuv76/06/2015 11:53 AM EDTGender IdentityNot on fileSexual OrientationNot on file Last Filed Vital Signs Vital SignReadingTime TakenCommentsBlood Wzjmofje560/59005/16/2023 1:58 PM EDT Ywkqf4330/30/2023 1:58 PM LPCPuxgghovssc35.1 ??C (97 ??F)05/16/2023 1:58 PM EDT Respiratory Nvdz337805/16/2023 1:58 PM EDTOxygen Goayybwwzz130%05/16/2023 1:58 PM EDTInhaled Oxygen Concentration--Uwgjcj71.5 kg (184 lb)08/07/2023 12:47 PM EST Geagfs506 cm (5' 3 )08/07/2023 12:47 PM ESTBody Mass Index32.5908/07/2023 12:47 PM EST Plan of Treatment Health MaintenanceDue DateLast DoneCommentsDepression Dxpnoxwoi17/03/1964 DTaP,Tdap and Td Vaccines (1 - Tdap)1971Zoster (Shingles) Vaccine (2 of 3) Fall Risk Qzmmzjuzx90/03/2017Adult BMI Warrsrwhh72/21/2024 08/07/2023Tobacco Bvsgvtbaa77OVID-19 Vaccine (4 - season), 10/26/2020, 10/05/2020Influenza Iwuqkdn4805/18/2025 06/13/2023, 06/17/2022, 07/08/2021, Additional history existsRSV ( or age 60+ yrs) (1 - 1-dose 75+ series)2027 Goals GoalPatient Goal TypeAssociated ProblemsRecent ProgressPatient-Stated?Author Improve mobility Zenia Jason RN Note: Evaluation of progress towards goal: Maximize work with PT at discharge to strengthen Left TSR Medical Devices ImplantedTypeAreaManufacturerDevice IdentifierShelf Expiration DateModel / Serial / LotBearing Hum 36mm Cmprh Std Shldr Prlng Rvrs - [id number] Implanted:Qty: 1 on 05/16/2023 by Joshua Rincon MD at [facility]ITALBearingLeft: ShoulderZimmer Biomet [id number] / / [id number] Bn Bio 40gm Rpl [id number] - Sna - [id number] Implanted:Qty: 2 on 11/10/2020 by Sl[facility]ITALTCementRight: KneeZimmer [id number] / NA / [id number] Fem 5 Kn Rt Crcte Rtn - Sna - [id number] Implanted:Qty: 1 on 11/10/2020 by Slava Magana, DO at [facility] ImplantRight: Knee GIZGUSKFBZZZ27/31/[id number] / NA / [id number] Ptlr 35mm Medialized Dome - Sna - [id number] Implanted:Qty: 1 on 11/10/2020 by Slava Magana DO at [facility] ImplantRight: Knee FZELNRTOUAEE77/30/[id number] / NA / [id number] Tib 5 5mm Cr Fx Brng - Sna - [id number] Implanted:Qty: 1 on 11/10/2020 by Slava Magana, DO at [facility] ImplantRight: [facility] JJKSKMVMUITI51/31/[id number] / NA / [id number] Kn Fx Brng W Spcl Ins Construct Rpl [id number] - Sna - [id number] Implanted:Qty: 1 on 11/10/2020 by Slava Magana DO at [facility] ImplantRight: Knee [id number] / NA / NABaseplate Krishna Cmprh Sm Shldr Aug Tpr Adpr - [id number] Implanted:Qty: 1 on 05/16/2023 by Joshua [facility]con [facility] ImplantLeft: Shoulder Stewart [id number] / / [id number] Krishna 36mm Std Glenosphere Clr Cd Cmprh Versa-Dial - [id number] Implanted:Qty: 1 on 05/16/2023 by Joshua Rincon MD at [facility] ImplantLeft: Shoulder Stewart [id number] / / [id number] Hum 55mm 11mm Cmprh Por Mt Shldr Rvrs Sys - [id number] Implanted:Qty: 1 on 05/16/2023 by Joshua R[facility]con [facility] ImplantLeft: Shoulder Stewart Afptwk30/25/[id number] / / [id number] Hum Cmprh Std Shldr Rvrs - [id number] Implanted:Qty: 1 on 05/16/2023 by Joshua Rincon MD at [facility] ImplantLeft: Shoulder Stewart [id number]/24/[id number] / / [id number] Tib 5 Kn Cmnt Fx Brng - Sna - [id number] Implanted:Qty: 1 on 11/10/2020 by Sl[facility] DO at [facility]Right: KneeJJ ZXALJWYVWJSG08/30/[id number] / NA / [id number] Bn 30mm 6.5mm Cntr Hx Hd Ti Cmprh 3.5mm Strl Rvrs - [id number] Implanted:Qty: 1 on 05/16/2023 by [facility]con MD at [facility]wLeft: ShoulderZimmer Biomet 11/09/[id number] / / [id number] Bn 20mm 4.75mm Lck Fx Ang Hx Hd Ti Cmprh 3.5mm Strl - [id number] Implanted:Qty: 1 on 05/16/2023 by [facility]con MD at [facility]wLeft: ShoulderZimmer Biomet [id number] / / [id number] Bn 15mm 4.75mm Lck Fx Ang Hx Hd Ti Cmprh 3.5mm Strl - [id number] Implanted:Qty: 1 on 05/16/2023 by Joshua [facility]con MD at [facility]wLeft: ShoulderZimmer Biomet [id number] / / [id number] Bn 15mm 4.75mm Lck Fx Ang Hx Hd Ti Cmprh 3.5mm Strl - [id number] Implanted:Qty: 1 on 05/16/2023 by [facility] MD at [facility]wLeft: ShoulderZimmer Biomet [id number] / / [id number] Bn 20mm 4.75mm Va Hx Hd Ti Cmprh 3.5mm Strl Rvrs Shldr - [id number] Implanted:Qty: 1 on 05/16/2023 by Joshua Rincon MD at [facility]TONcrewLeft: ShoulderZimmer Biomet [id number] / / [id number] Insurance Advance Directives TypeDate RecordedPatient RepresentativeExplanationDurable Power of Stonehand 05/02/2023 12:37 PMPOA * Full Code (Latest Code Status on File) Date ActivatedDate InactivatedComments05/16/2023 10:16 AM05/16/2023 5:16 PM * Full Code Date ActivatedDate InactivatedComments11/10/2020 11:25 AM11/11/2020 7:52 PM Care Teams Team MemberRelationshipSpecialtyStart DateEnd Date Will Alvarez MD PCP - GeneralFamily Medicine10/20/20
--- OUTSIDE RECORDS SUMMARY | 2025-07-30 13:39 | XMS_ITS | Clinical Summary ---
Author Organization [facility] Address [address] [place] [address] Phone Care Team Providers Care Surveillance Dual Rate Officer Name Role Phone Unavailable Primary Care Provider Unavailabl e Social History Tobacco UseTypesPacks/DayYears UsedDateSmoking Tobacco: Never Assessed CommentsUnknownSex and Gender InformationValueDate RecordedSex Assigned at Not on fileLegal AyiUkhpji51/25/2022 8:11 PM ESTGender IdentityNot on fileSexual OrientationNot on file Plan of Treatment Not on file
--- OUTSIDE RECORDS SUMMARY | 2025-07-30 13:39 | XMS_ITS | Clinical Summary ---
Author Organization [facility] Address [address] [place] [address] Care Team Providers Care Steel Rule Die Maker Name Role Phone Will Alvarez MD Unavailable Jeet Aguirre MD Unavailable [phone] Osei Arevalo DPM Unavailable Will Alvarez MD Primary Care Provider Allergies Active AllergyReactionsCriticalityNoted KemhSfygajiaMzxrwxhlmubXfezLgv19/11/2024 Swelling/rash HydroxychloroquineHives,Hcvitau4202/08/20239264GtfwxowgkufsIhlmScp69/16/2023 Medications MedicationSigDispense QuantityRefillsLast FilledStart DateEnd DateStatus aspirin [...] 90 capsule 5Active Active Problems ProblemNoted DateDiagnosed BploIsxkeicbhkdxkzks80/01/2025Diverticulosis large intestine w/o perforation or abscess w/o rtwxjeyu08/29/2024rtificial knee joint present, right4Presence of artificial shoulder joint, right02/07/2024 Hypertensive kzdduaredfe60/23/2024Left foot pain08/23/2023ubital tunnel syndrome on left07/05/2023resence of artificial shoulder joint, left07/04/2023 Asymptomatic microscopic jdildnvcy56/15/2023Nocturnal vppatdqh23/15/2023Urge incontinence of urine05/01/2023nterolisthesis of cervical spine02/08/2023 Artificial knee joint present, left02/08/2023ervical pxqolvepp83/25/2023hronic rzyvxiy3002/08/2023hronic pain fiazdeat70/25/2023hronic primary angle-closure glaucoma of both eyes02/08/2023igarette tbjpmm0702/08/2023egenerative disc disease, jybijgxt72/25/3026Xqbgcuqhjodwdmn76/25/2023Essential hypertension 02/08/2023astroesophageal reflux disease without zbzrhwwesvl79/25/2023Hx of abdominal hxcmcklxsavj81/25/2023Leg length /25/2023Mixed /25/2023Obesity (BMI 30.0-34.9)02/08/2023Recurrent major depressive disorder, in partial jcfhjytkd25/25/2023Venous insufficiency 02/08/20231590Nsrulojweojp88/09/2021Rheumatoid qxryzphyy42/19/2020Impaired glucose tolerance test01/22/2019Insulin xipglywrmm48/08/2019 Resolved Problems ProblemNoted DateDiagnosed DateResolved DatePositive colorectal cancer screening using Cologuard testLeft shoulder pain/ Arthritis of right acromioclavicular joint/one spur /rthritis of left glenohumeral joint/ Neurologic disorder associated with diabetes ihiqoqoh76/ Neuropathy of left lower jhoqkjgct34/rimary osteoarthritis of left knee/4Rupture of right rotator cuff/ Status post left knee zgwvumzgxnq84/25/202305/Tear of left rotator cuff / Encounters DateTypeDepartmentCare XboeQsiiirxcmws15/08/2025[facility] [address] Will Alvarez MD Mixed aavbfqkicbpqhq49/09/2025External Result Encounter [facility] Unsolicited ObermMarlena alberts FNP 05/19/2025 3:00 PM EDTProcedure Visit [facility] [address] [place] [id number] Osei Arevalo DPM Onychomycosis (Primary Dx); Onychodystrophy; Diabetic polyneuropathy associated with type 2 diabetes mellitus (HCC)05/19/2025 Bamboo flowsheet [facility] [address] [place] [address] Osei Arevalo, DPM 05/19/2025Travelfrom Last 3 Months Immunizations ImmunizationAdministration DatesNext DueABRYSVO - Respiratory syncytial virus (RSV), vaccine, bivalent, protein subunit RSV prefusion F, diluent reconstituted, 0.5 mL, PF08/20/2024Influenza, High Dose Seasonal, Preservative Free08/20/2024,06/17/2020,07/17/2017Influenza, High-dose Seasonal, Quadrivalent, Preservative Free06/28/2022Influenza, Seasonal, Quadrivalent, Adjuvanted 06/13/2023Influenza, Kketpzxcshi03/27/2023,06/17/2022,07/08/2021,06/17/2020, 06/16/2020,06/24/2019,07/17/2017,06/17/2016Influenza, injectable, quadrivalent, preservative free06/17/2022,07/08/2021,06/23/2019,06/17/2016Influenza, injectable, quadrivalent, preservative free, pmvagatpc83/30/2020Influenza, trivalent, abhuetgyhv73/08/2019Pneumococcal Conjugate PCV 13012/29/2018 Pneumococcal Conjugate PCV 4Pneumococcal Polysaccharide PPSV23 01/14/2017,01/14/20158623TXAB-UBU-4 (COVID-19) vaccine, mRNA, spike protein, LNP, bivalent, [...] 2-3 cups per dayPHQ-2AnswerDate RecordedPatient Health Questionnaire-2 Ajeea079EducationAnswerDate RecordedWhat is the highest level of school you have completed or the highest degree you have received?High school dzwopqqu36/06/2023CommentsNoSex and Gender InformationValueDate RecordedSex Assigned at BirthNot on fileLegal TclHvrhjn47/15/2023 7:09 PM EDT Gender IdentityNot on fileSexual OrientationNot on fileOccupationIndustryJob Start DateJob End DatePart timeNot on fileNot on fileNot on file Last Filed Vital Signs Vital SignReadingTime TakenCommentsBlood Tclagidh701/72002/02/2025 9:17 AM EDT Qinzw05675/02/2025 2:03 PM EDTTemperature--Respiratory Rate--Oxygen Saturation 96%03/18/2025 2:03 PM EDTInhaled Oxygen Concentration--Tfilns58.6 kg (180 lb) 05/19/2025 2:54 PM UKMGroidx382 cm (5' 3 )05/19/2025 2:54 PM EDTBody Mass Index 31.8905/19/2025 2:54 PM EDT Plan of Treatment DateTypeDepartmentCare Team (Latest Contact Info)Wlrskigfjag43/02/2025 3:00 PM ESTProcedure Visit [facility] [address] [place] [address] Osei Arevalo, DPKaleigh [address] [place], [place] [id number] Health MaintenanceDue DateLast DoneCommentsCT Stfokwupfcer1950FIT 1950FOBT03/19/19523696Zofbneogxzpxc1950Diabetes: Hemoglobin A1C /, 05/30/2024, 05/02/2023, Additional history existsCOVID-19 Vaccine ( season)2025Influenza Vaccine (#1)2025 08/20/2024, 06/13/2023, 06/13/2023, Additional history existsMedicare Annual Wellness (AWV)6002/02/2025, 02/05/2024, 2Diabetes: Urine Protein Uzqlzzvsl62/30/51611202/13/2025, 11/29/2021, 06/14/20183354Sqysrizqs18/13/2026 02/27/2025, 07/22/2021, 02/23/2020, Additional history existsDiabetes: Retinopathy Givckymre85/01/77838809/17/2023, 09/13/2022FIT-DNA/05/2024 Poupusmdlrq62olorectal Cancer Ppbrwlzvb42/16/2034Pneumococcal Vaccine: 65+ OloytUcekxpglw56/04/2024, 12/29/2018, 01/14/2017, Additional history exists Procedures Procedure NamePriorityDate/TimeAssociated DiagnosisCommentsCBC (INCLUDES DIFF/PLT)Evwsvrt3505/26/2025 1:40 PM EDT SED RATE BY MODIFIED WBAECDPZMZUspxmuq79/09/2025 1:40 PM EDT COMPREHENSIVE METABOLIC NFJPUBzqcbpv99/09/2025 1:40 PM EDT MM TOMOSYNTHESIS SCREENING BI02/27/2025 2:37 PM EDT MICROALBUMIN / CREATININE URINE ULAJGXdtwvom69/30/2025 8:31 AM EDT Essential hypertension Hypertensive nephropathy Insulin resistance Impaired glucose tolerance test HEMOGLOBIN S4WDbvhrjp94/30/2025 8:31 AM EDT Insulin resistance Impaired glucose tolerance test DIABETIC RETINOPATHY SCREENING - OU - BOTH NPYSHwjzvzh93/01/2024 10:02 AM EDT JOKVDKGLTXPPtwczzj66/16/2024 11:03 AM EDTLAB COLOGUARD?? COLON CANCER SCREEN Nxefnri6202/24/2024 9:00 AM EDT Colon cancer screening from Last 3 Months or Most Recently Relevant to Health Maintenance Results * Sedimentation rate, automated (05/26/2025 1:40 PM EDT)ComponentValueRef Range Test MethodAnalysis TimePerformed AtPathologist SignatureSED RATE BY MODIFIED BNUANOJZEP05< OR = 30 mm/hQUESTSpecimen (Source)Anatomical Location / LateralityCollection Method / VolumeCollection TimeReceived Time05/26/2025 1:40 PM EDT05/26/2025 1:41 PM EDT Narrative Resulting Agency Comment Performing Organization Information ?Site ID: QPT ?Name: [facility] ?Address: [address] [place] [address], [address] [place] [phone] ?Director: Edgardo Lake MD Authorizing ProviderResult TypeResult StatusJodi Obermeyer FNPLAB BLOOD ORDERABLESFinal ResultPerforming OrganizationAddressCity/State/ZIP CodePhone Number [facility] * (ABNORMAL) CBC and differential (05/26/2025 1:40 PM EDT)ComponentValueRef RangeTest MethodAnalysis TimePerformed AtPathologist SignatureWHITE BLOOD CELL COUNT6.53.8 - 10.8 Thousand/uLQUESTRED BLOOD CELL COUNT4.023.80 - 5.10 Million/uSDFJSNXACEVYJGRS08.3(L)11.7 - 15.5 g/kFGCIJUNUCDKJJKZE54.135.0 - 45.0 %EHUXZPTN59.380.0 - 100.0 oZPYUKYTJP23.127.0 - 33.0 wsZXCNDQAPY66.232.0 - 36.0 g/dLQUESTComment: For adults, a slight decrease in the calculated MCHC value (in the range of 30 to 32 g/dL) is most likely not clinically significant; however, it should be interpreted with caution in correlation with other red cell parameters and the patient's clinical condition. RDW16.7(H)11.0 - 15.0 %QUESTPLATELET NWZYF989674 - 400 Thousand/uLQUESTMPV8.87.5 - 12.5 fLQUESTABSOLUTE NEUTROPHILS4,1601,500 - 7,800 cells/uLQUESTABSOLUTE LYMPHOCYTES1,148174 - 3,900 cells/uLQUESTABSOLUTE ARCIMOPOF778446 - 950 cells/uL QUESTABSOLUTE VTANHXGPCJW60722 - 500 cells/uLQUESTABSOLUTE LEEHDMAKY602 - 200 cells/kBNMCNXLLDGSXGINLP55%VSGQXEEFNOJQRXIY35.3%QUESTMONOCYTES4.0%QUEST EOSINOPHILS1.9%QUESTBASOPHILS0.8%QUESTSpecimen (Source)Anatomical Location / LateralityCollection Method / VolumeCollection TimeReceived Time05/26/2025 1:40 PM EDT05/26/2025 1:41 PM EDT Narrative Resulting Agency Comment Performing Organization Information ?Site ID: QPT ?Name: [facility] [facility] ?Address: [address] [place] [address], [address] [place] [phone] ?Director: Edgardo Lake MD Authorizing ProviderResult TypeResult [...] should be confirmed with a follow-up test. YNI509 - 25 mg/dLQUESTCreatinine0.620.60 - 1.00 mg/dWZCLVLVDIM43> OR = 60 mL/min/1.36e5ZTKMUJWV/CREATININE RATIOSEE NOTE:6 - 22 (calc)QUESTComment: ?? Not Reported: BUN and Creatinine are within ?? reference range. ? Rynuqs566167 - 146 mmol/LQUESTPotassium, Bld3.93.5 - 5.3 mmol/BQZJWEAglbbbiu5770 - 110 mmol/LQUESTCarbon Ghqimqt7212 - 32 mmol/LQUESTCalcium9.08.6 - 10.4 mg/dL QUESTPROTEIN, TOTAL6.36.1 - 8.1 g/dLQUESTALBUMIN3.73.6 - 5.1 g/dLQUESTGLOBULIN 2.61.9 - 3.7 g/dL (calc)QUESTALBUMIN/GLOBULIN RATIO1.41.0 - 2.5 (calc)QUEST BILIRUBIN, TOTAL0.40.2 - 1.2 mg/dLQUESTALKALINE TJRPLRCLBGA28083 - 153 U/LQUEST TVK1685 - 35 U/LRYVQYJUP20 - 29 U/LQUESTSpecimen (Source)Anatomical Location / LateralityCollection Method / VolumeCollection TimeReceived Time05/26/2025 1:40 PM EDT05/26/2025 1:41 PM EDT Narrative Resulting Agency Comment Performing Organization Information ?Site ID: QPT ?Name: [facility] ?Address: [address] [place] [address], [address] [place] [phone] ?Director: Edgardo Lake MD Authorizing ProviderResult TypeResult StatusJodi Obermeyer FNPLAB BLOOD ORDERABLESFinal ResultPerforming OrganizationAddressCity/[facility]/ZIP CodePhone Number [facility] * MM TOMOSYNTHESIS SCREENING BI (02/27/2025 2:37 PM EDT)Anatomical Region LateralityModalityOtherSpecimen (Source)Anatomical Location / Laterality Collection Method / VolumeCollection TimeReceived Time02/27/2025 2:37 PM EDT Narrative 02/27/2025 2:38 PM EDT [facility] ?[address] ? [place] [address] ? Mammography Report ? Signed ? Patient: HOLLI,NEHA G ?MR#: [id number] ?? : 1950 ?Acct:[id number] ?? Age/Sex: 74 / F ?ADM Date: //25 ?? Loc: MAMMO ? Attending Dr: EDCAPRICE HEMEYER ? Ordering Physician: CRISTELAYER,EDWARD ? Results: ? Date of Service: /13/25 ?Follow Up: ? Procedure(s): MM tomosynthesis screening BI ?? Accession Number(s): [id number] ? cc: WILL ALVAREZ ? Patient Name: ? NEHA BLANC ? MR#: [id number] ? : 1950 ? Exam Date: 02/27/2025 [...] at age ??77. ? LOCATION: ? [facility] ? BREAST COMPOSITION: ? The breasts [...] 1438 ? DD/ 1437 ? TD/TT: ? Turn Out: Procedure Note Radiology, Radiologist, MD - 02/27/2025 [facility] [place] [id number] Mammography Report Signed Patient: NEHA BLANC GMR#: [id number] : 1950cct:[id number] Age/Sex: 74 / FADM Date: 02/27/25 Loc: MAMMO Attending Dr: WILL ALVAREZ Ordering Physician: WILL ALVAREZResults: Date of Service: 02/27/25Follow Up: Procedure(s): MM tomosynthesis screening BI Accession Number(s): [id number] cc: WILL ALVAREZ Patient Name: NEHA BLANC MR#: [id number] : 1950 Exam Date: 02/27/2025 Ordering Doctor: [...] throat cancer at age 77. LOCATION: [facility] BREAST COMPOSITION: The breasts are almost [...] D.O. Signed By:02/27/25 1438 DD/ 36 TD/TT: Turn Out: Authorizing ProviderResult TypeResult Vivi Alvarez MDCLINISYNC IMAGING Final Result * (ABNORMAL) Microalbumin / creatinine urine ratio (02/13/2025 8:31 AM EDT) ComponentValueRef RangeTest MethodAnalysis TimePerformed AtPathologist SignatureCREATININE, RANDOM MLNAB8944 - 275 mg/dLQUESTALBUMIN, URINE3.7See Note: mg/dLQUESTComment: Reference Range: Reference Range Not established ALBUMIN/CREATININE RATIO, RANDOM NIIQL253(H)<30 mg/g creatQUESTComment: The ADA defines abnormalities in [...] specimen obtained by clean catch procedure / Dmosjbg6102/13/2025 8:31 AM EDT02/13/2025 3:49 PM EDT Narrative Resulting Agency Comment Performing Organization Information ?Site ID: QPT ?Name: [facility] ?Address: [address] [place] [address], [address] [place] [phone] ?Director: Edgardo Lake MD Authorizing ProviderResult TypeResult Vivi Alvarez MDFLINT HILLS COMMUNITY [facility] URINE ORDERABLESFinal ResultPerforming OrganizationAddressCity/State/ZIP CodePhone Number [...] Volume Collection TimeReceived TimeBloodVenous blood specimen / Yxfqynx5902/13/2025 8:31 AM EDT02/13/2025 3:49 PM EDT Narrative Resulting Agency Comment Performing Organization Information ?Site ID: QPT ?Name: [facility] ?Address: [address] [place] [address], [address] [place] [phone] ?Director: Edgardo Lake MD Authorizing ProviderResult TypeResult [...] AtPathologist SignatureNONINV COLON CA DNA+OCC BLD SCRN STL-IMPPositive(A)Dtiqcclm24/17/2024 5:41 PM EDTEXPaga (CLIA #:[id number])Comment: POSITIVE TEST RESULT. A positive Cologuard result [...] Thomason et al, N Engl J Med 2014;370(14):7972-9685.) Cologuard may produce a false negative or [...] can be accessed at the following location: [email or web address]. Additional description of the Cologuard test process, warnings and precautions can be found at [email or web address]. Specimen (Source)Anatomical Location / LateralityCollection Method / Volume Collection TimeReceived TimeStool specimen (specimen)Rectal contents / Unknown 02/24/2024 9:00 AM EDT02/26/2024 11:26 AM EDT Narrative Authorizing ProviderResult TypeResult StatusWill [facility] ORDERABLESFinal ResultPerforming OrganizationAddressCity/State/ZIP CodePhone Number .[employer] (CLIA #:[id number]) [address] [address], [employer] (CLIA #:[id number]) [address] [address] from Last 3 Months or Most Recently Relevant to Health Maintenance Insurance Advance Directives TypeDate RecordedPatient RepresentativeExplanationAdvance Directives and Living Will Living WillAdvance Directives and Living Will11/29/2021 2016-04-04 Power Of Cylinder Inspector And Tester Care Teams Team MemberRelationshipSpecialtyStart DateEnd Date Will Alvarez MD [address] [place] [address] (Fax) PCP - ACO Reach02/08/23 Will Alvarez MD [address] [place] [address] (Fax) PCP - GeneralFamily [place] [address]/27/25 Jeet Aguirre MD [address] [facility] [address] [place] [address] Referring PhysicianRheumatolog10/25/23 Osei Arevalo DPM [address] [place] [address] Referring PhysicianPodiatry2
--- OUTSIDE RECORDS SUMMARY | 2025-07-30 13:39 | XMS_ITS | Patient Health Record ---
Author Organization [facility] in [place] Address [address] [place] [address] Care Team Providers Care Dining Server Name Role Phone None, Unknown or Primary Care Provider Unavailab le Reason For Referral No Information Plan Of Treatment No Information Insurance Providers Payer Name Payer Address Payer Phone Subscriber Number Group Number Insured Name Patient Relationship to Insured Coverage Start Date Coverage End Date [place]IC[place] [address] [place] [address] [id number] Goldy Blancelf - patient is the [id number] 2017[employer] MEDICARE SUPP CLAIM DEPT [address] [place], [place] [id number], Beverly Self - patient is the [id number] 2017
--- OUTSIDE RECORDS SUMMARY | 2025-07-30 13:45 | XMS_ITS | CCD ---
Author Organization [facility] Inform ion Partnership [facility] Care Team Providers Care Hr Intern Name Role Phone MD Willie Garcia Attending Provider [phone] MD Will Tim Primary Care Provider Willie Garcia Unavailable MD Willie Garcia Attending Provider [phone] MD Will Tim Primary Care Provider MEETA, DR ROCKWELL Primary Care Unavailable CLARKSTON, DR ADALI Rausch Consulting Unavailable URIARTE, DR [...] Unavailable Will Tim MD Primary Care Provider [phone] Will Tim MD Unavailable [phone] Alexis Magana DO Unavailable [phone] Jeet Uriarte MD Unavailable [phone] Osei Arevalo DPM Unavailable [phone] PETR Coleman Attending Unavailable PETR Coleman Admitting [...] Care Unavailable HEMEWILL VYAS Attending Unavailable OSEI AREVLAO Attending Unavailable HEMEWILL VYAS Attending Unavailable NATALYA [...] Allergen(s)Allergy TypeDate of OnsetReaction(s) Facility (20 sources)HydroxychloroquineDrug Zhgvhvv69-26-4427[facility] (2 sources)Hydroxychloroquine; Translations: [Plaquenil]Drug Rwjzntk95-10-3748 [facility] (1 source)HydroxychloroquineDrug AllergyThe [facility] (20 sources)levoFLOXacinDrug Cqjzexa16-17-7221Me[facility]IG[facility] (20 sources)ClindamycinDrug Ryplrll96-87-0801[facility] (1 source)ClindamycinDrug Unufbet80-95-6773WnhqfivxpMagr[facility] (1 source)HydroxychloroquineDrug Fjyjvid97-50-3618SnzxnvremMagruder Memorial Hospital Repository Medications Current Medications MedicationDrug Class(es)DatesSig [...] oral tablet (8 sources)Penicillin-class AntibacterialStart: 05-13-2024 End: 26-27-4273ymjk 4 tablets by mouth once at mealtimeamoxicillin (Amoxil) 500 MG tablet Indications: S/P reverse total shoulder arthroplasty, right 4 tabs PO once 30-60 mins before procedure with food 4 tablet 3 05/13/2024 05/23/2024 DiscontinuedStart: 87-67-3777ungh 4 tablets by mouth once at mealtimeamoxicillin (Amoxil) 500 MG tablet Indications: S/P reverse total shoulder arthroplasty, right 4 tabs PO once 30-60 mins before procedure with food 4 tablet 3 05/13/2024 Active End: 01-63-4181czqadwzpsvj (Amoxil) 500 MG capsule Take 500 mg by mouth See administration instructions. Take 4 capsules 45 minutes prior to dental appointment 05/13/2024 Discontinued (Therapy completed)Aspir-81 (3 sources)Aspir-81 Activeaspirin 81 mg delayed release oral tablet (20 sources)Platelet Aggregation Inhibitor, Nonsteroidal Anti-inflammatory Drug Start: 73-65-5887mlzm 1 tablet by mouth once daily in the morningAspirin 81 mg Tablet,Delayed Release (Dr/Ec) Active 81 MG PO Every morning July 12, 2022 12:00am Complies with drug therapyatorvastatin 10 mg oral tablet (20 sources)HMG-CoA Reductase InhibitorStart: 07-12-2022 End: 08-70-2861asqi 1 tablet by mouth at bedtimeatorvastatin (Lipitor) 10 MG tablet Indications: Mixed hyperlipidemia Take 1 tablet (10 mg) by mouth at bedtime 90 tablet 3 10/20/2024 10/20/2025 ActiveAtorvastatin Calcium Active calcium citrate 1040 mg oral tablet (5 sources)Start: 00-93-3877txtcrvk citrate 250 MG tablet Indications: Osteopenia 1 tablet 2-3 times daily as directed. 03/18/2025 Active cholecalciferol 0.125 mg oral tablet (5 sources)Vitamin DStart: 97-06-1846slhjxgbtcqhkpry (Vitamin D-3) 125 MCG (5000 UT) tablet Indications: Vitamin D Deficiency OTC vitamin D3 5000 units, Winter dose, take 1 capsule daily. 03/18/2025 ActiveDULoxetine 60 mg delayed release oral capsule (20 sources)Serotonin and Norepinephrine Reuptake InhibitorStart: 02-18-2025 End: 33-44-4073vevj 1 capsule by mouth once dailyDULoxetine (Cymbalta) [address] capsule Indications: Recurrent major depressive disorder, in partialremission Take 1 capsule (60 mg) by mouth Daily 90 capsule 1 03/23/2025 06/21/2025 Active Start: 08-05-2024 End: 43-44-2906zmcv 1 capsule by mouth once dailyDULoxetine (Cymbalta) [address] capsule Indications: Recurrent major depressive disorder, in partialremission (HCC) (CMS/HCC) Take 1 capsule (60 mg) by mouth Daily 90 capsule 1 08/05/2024 ActiveStart: 01-28-2024 End: 56-53-4942edxw 1 capsule by mouth once dailyDULoxetine (Cymbalta) [address] capsule Indications: Recurrent major depressive disorder, in partialremission (HCC) (CMS/HCC) Take 1 capsule (60 mg) by mouth Daily 90 capsule 1 01/28/2024 ActiveStart: 06-28-2023 End: 01-70-5255vhef 1 capsule by mouth in the morningDULoxetine (Cymbalta) [address] capsule Indications: Recurrent major depressive disorder, in partial remission (HCC) (CMS/HCC) Take 1 capsule (60 mg) by mouth in the morning. 90 capsule 1 06/28/2023 12/25/2023 ActiveStart: 05-98-5927vdlq 2 capsules by mouth once daily in the morningDuloxetine 20 mg capsule,delayed release(DR/EC) Active 40 MG PO Every morning July 12, 2022 12:00am Complies with drug therapy Start: 87-34-0353nmzv 40 mg by mouth once daily in the morningDuloxetine Active 40 MG PO Every morning July 11, 2022 11:00pmStart: 00-64-9359ctgm 1 capsule by mouth every twelve hoursDULoxetine HCl 20 MG 1 capsule Orally Twice a day for 30 day(s) Jun, Activeferrous sulfate 325 mg oral tablet (2 sources)Start: 10-02-2023 End: 72-53-2458bchc 1 tablet by mouth at mealtimeferrous sulfate (FerrouSul) 325 (65 Fe) MG tablet Indications: Osteoarthritis of right glenohumeraljoint Take 1 tablet (325 mg) by mouth in the morning. Take with meals. 30 tablet 11 10/02/2023 10/01/2024 Activefolic acid 1 mg oral tablet (20 sources)Start: 47-47-9526onzwn acid (Folvite) 1 MG tablet 1 mg 10/30/2023 ActiveStart: 97-06-5259ljre 1 tablet by mouth every twenty-four hoursFolic Acid 800 MCG 1 tablet Orally Once a day for 30 day(s) Jun, Activegabapentin 400 mg oral capsule (18 sources)Anti-epileptic AgentStart: 65-73-0518Mkpbmlbnrt 400 mg capsule Active 300 MG PO Twice daily May 12, 2025 9:20am Complies with drug therapy Start: 85-11-2313venf 1 capsule by mouth three times dailygabapentin (Neurontin) 100 MG capsule Take 100 mg by mouth 3 (three) times a day 02/18/2025 Active Start: 07-12-2022 End: 76-33-1474uhbp 1 capsule by mouth four times dailyGabapentin 400 mg capsule Discontinued 400 MG PO Four times daily July 12, 2022 12:00am 2024 9:21amStart: 89-01-4142tbda 1 capsule by mouth every eight hoursGabapentin 400 MG 1 capsule Orally tid for 30 day(s) Jun, ActivemetFORMIN hydrochloride 1000 mg oral tablet (20 sources)BiguanideStart: 03-23-2025 End: 56-71-2110yjdx 1 tablet by mouth in the morningmetFORMIN (Glucophage) 1000 MG tablet Indications: Impaired glucose tolerance test Take 1 tablet (1,000 mg) by mouth in the morning and 1 tablet (1,000 mg) in the evening. Take with meals. 180 tablet1 03/23/2025 09/19/2025 ActiveStart: 07-12-2022 End: 34-74-9663ljya 1 tablet by mouth twice dailyMetformin 1,000 mg tablet Active 1000 MG PO Twice daily July 12, 2022 12:00am Complies with drug therapymetFORMIN HCl Activemethotrexate 2.5 mg oral tablet (20 sources)Folate Analog Metabolic InhibitorStart: 02-04-6427Mecbyrqhrzts Sodium 2.5 mg tablet Active 17.5 MG PO every week July 12, 2022 12:00am sunday Complies with drug therapyStart: 59-27-6642flgy 17.5 mg by mouth every weekMethotrexate Sodium Active 17.5 MG PO every week July 11, 2022 11:00pm mondaystart: 57-75-7635Syzhwpfylmov 2.5 MG as directed Orally Jun, Activetake 8 tablets by mouth every weekmethotrexate 2.5 MG tablet 8 tablets Orally once a week for 90 days ActivemethylPREDNISolone (14 sources)CorticosteroidStart: 06-02-2024 End: 58-96-0568pwxtinKIMOZOPcwsmg (Medrol Dospak) 4 MG tablets Indications: Primary osteoarthritis of left ankle Take as directed on package. 21 tablet 06/02/2024 07/03/2024 Discontinued (Therapy completed)Start: 06-02-2024 methylPREDNISolone (Medrol Dospak) 4 MG tablets Indications: Primary osteoarthritis of left ankle Take as directed on package. 21 tablet 06/02/2024 ActiveStart: 04-29-2024 End: 82-36-3679gqnlcuKWSPZZBzwcqr (Medrol Dospak) 4 MG tablets Indications: Primary osteoarthritis of left ankle ,Primary osteoarthritis of right ankle Take as directed on package. 21 tablet 04/29/2024 05/23/2024 DiscontinuedStart: 34-06-6680hxxzugPVJYZVNhxvcb (Medrol Dospak) 4 MG tablets Indications: Primary osteoarthritis of left ankle ,Primary osteoarthritis of right ankle Take as directed on package. 21 tablet 04/29/2024 ActiveStart: 51-51-3568Gmqc-Medrol 80 mg Jul, 80 mgMultivitamin preparation (3 sources)Start: 14-13-4573fkji 1 tablet by mouth once daily in the morning Multivitamin Active 1 TAB PO Every morning July 11, 2022 11:00pmStart: 35-55-9116awht 1 tablet by mouth once daily in the morningMultivitamin Active 1 TAB PO Every morning July 12, 2022 12:00amnabumetone 500 mg oral tablet (20 sources)Nonsteroidal Anti-inflammatory DrugStart: 11-14-4796fvot 1 tablet by mouth once dailyNabumetone 500 mg tablet Active 500 MG PO Daily April 09, 2025 12:00am Complies with drug therapyStart: 63-19-5016jryi 1 tablet by mouth in the morningnabumetone (Relafen) 750 MG tablet Take 750 mg by mouth in the morning and 750 mg before bedtime. 01/23/2025 ActiveStart: 06-02-2024 End: 00-06-3545ypio 1 tablet by mouth in the morningnabumetone (Relafen) 750 MG tablet Indications: Left foot pain Take 1 tablet (750 mg) by mouth in the morning and 1 tablet (750 mg) before bedtime. 180 tablet 07/03/2024 10/01/2024 ActiveStart: 07-12-2022 End: 02-70-8672Rbcqidxyga 750 mg tablet Discontinued MG July 12, 2022 12:00am July 12, 2022 2:25pmStart: 07-12-2022 End: 06-52-0591Cbtuvlreph Discontinued MG TABLET July 11, 2022 11:00pm July 12, 2022 1:25pmomeprazole 20 mg delayed release oral capsule (20 sources)Proton Pump InhibitorStart: 32-48-2393ckbq 1 capsule by mouth before mealtimeomeprazole (PriLOSEC) [address] capsule Take 20 mg by mouth in the morning. Take before meals. 04/16/2023 ActiveStart: 32-72-7950nmhc 1 tablet by mouth once daily in the morningOmeprazole 20 mg Tablet,Delayed Release (Dr/Ec) Active 20 MG PO Every morning July 12, 2022 12:00am Complies with drug therapyOmeprazole Activevitamin k2 0.1 mg oral capsule (5 sources)Start: 46-74-3219klxj 1 capsule by mouth once dailyMenaquinone-7 (Vitamin K2) 100 MCG capsule Indications: Osteopenia, unspecified location Take 1 capsule by mouth Daily 03/18/2025 Active Completed/Discontinued Medications MedicationDrug Class(es)DatesSig (Normalized)Sig (Original)cephalexin 500 mg oral capsule (4 sources)Cephalosporin AntibacterialStart: 07-26-2022 End: 04-34-4356eoyb 1 capsule by mouth three times dailyCephalexin 500 mg capsule Discontinued 500 MG PO Three times daily July 26, 2022 1:00am April 09, 2025 8:25amcitalopram 10 mg oral tablet (6 sources)Serotonin Reuptake InhibitorStart: 07-12-2022 End: 84-49-2000Ojnacmagsd 10 mg tablet Discontinued MG July 12, 2022 12:00am July 12, 2022 2:21pmStart: 07-12-2022 End: 41-47-3327Tipnsprtql Discontinued MG TABLET July 11, 2022 11:00pm July 12, 2022 1:21pmfluconazole 200 mg oral tablet (2 sources)Azole AntifungalStart: 06-10-2024 End: 61-81-5018qbhg 1 tablet by mouth once dailyfluconazole (Diflucan) 200 MG tablet Indications: Candidiasis Take 1 tablet (200 mg) by mouth Dailyfor 10 days 10 tablet 06/10/2024 06/20/2024 Expiredlatanoprost 0.05 mg/ml ophthalmic solution (20 sources)Prostaglandin AnalogStart: 01-04-2023 End: 20-16-1839sjtj 1 drop(s) into the eye(s) in the morninglatanoprost (Xalatan) 0.005 % ophthalmic solution Administer 1 drop into both eyes in the morning. 01/04/2023 10/27/2024 Discontinued (Therapy completed)Multivitamin Tablet (3 sources)Start: 07-12-2022 End: 44-97-4419xkby 1 tablet by mouth once daily in the morningMultivitamin Tablet Discontinued 1 TAB PO Every morning July 12, 2022 12:00am April 09, 2025 8:26amoxyCODONE hydrochloride 5 mg oral tablet (6 sources)Opioid AgonistStart: 07-26-2022 End: 06-67-8981asip 5-10 mg by mouth every six hours as needed for painOxycodone 5 mg tablet Discontinued 5 - 10 MG PO Q6H as needed for Pain 40 8 July 26, 20222024 8:26ampredniSONE 20 mg oral tablet (8 sources)Start: 07-12-2022 End: 66-53-9609ecft 1 tablet by mouth once daily in the morningPrednisone 20 mg tablet Discontinued 20 MG PO Every morning July 12, 2022 12:00am April 09, 2025 8:26amStart: 21-70-2891ppovcdSFQB 5 MG 1 tablet 3 times a day for 3 days, 1 tablets 2 times a day for 3 days , 1 tablet 1 times a day for 3 days Orally as directed for 9 days Jun, Activespironolactone 25 mg oral tablet (20 sources)Aldosterone AntagonistStart: 12-26-2023 End: 11-86-3705kzfx 1 tablet by mouth in the morningspironolactone (Aldactone) 25 MG tablet Indications: Venous insufficiency Take 1 tablet (25 mg) by mouth in the morning and 1 tablet (25 mg) before bedtime. 180 tablet 12/26/2023 10/27/2024 Discontinued (Therapy completed)terbinafine hydrochloride 10 mg/ml topical cream (16 sources)Allylamine AntifungalStart: 06-10-2024 End: 34-76-3742aybmtttppbj (LamISIL AT) 1 % cream Indications: Yeast dermatitis Apply topically 2 (two) times a day 28.4 g 3 06/10/2024 10/27/2024 Discontinued (Therapy completed)traMADol hydrochloride 50 mg oral tablet (9 sources)Opioid AgonistStart: 07-12-2022 End: 15-65-0020vstn 50-100 mg by mouth three times daily as needed for pain Tramadol 50 mg tablet Discontinued 50 - 100 MG PO Three times daily as needed for Pain July 12, 2022 12:00am July 26, 2022 9:04amStart: 06-22-2022 take 1 tablet by mouth every twenty-four hourstraMADol HCl 50 MG 1 tablet as needed Orally Once a day Jun, ActiveTriamcinolone (3 sources)CorticosteroidStart: 26-21-6342FOBQAYU - 10 mg Aug, 40 mg Problems Active Problems Problem ClassificationProblemDateDocumented DateEpisodic/ChronicDisorders of lipid metabolism (20 sources)Mixed hyperlipidemia; Translations: [Mixed hyperlipidemia]Onset: 076757-75-0622XnbpnyoBmhuhukff of teeth and jaw (2 sources)Temporomandibular frbzr-fckf-dttaozbhzyt syndrome; Translations: [Arthralgia of temporomandibular joint, unspecified side]52-84-0892Hxhfrcqz Diverticulosis and diverticulitis (20 sources)Diverticulosis of large intestine; Translations: [Diverticulosis of large intestine without perforation or abscess without bleeding]Onset: 537881-44-5375SyoabokQdjqhpiort disorders (20 sources)Gastro-esophageal reflux disease without esophagitis; Translations: [Gastroesophageal reflux disease without esophagitis]Onset: ChronicEssential hypertension (20 sources)Essential (primary) hypertension; Translations: [Essential hypertension]Onset: 955953-49-5901GysnekqBbenzaumjywbm symptoms and ill- defined conditions (20 sources)Nocturnal enuresis; Translations: [Nocturnal enuresis]Onset: 363638-27-7989JrghnndWkqxtxgs (20 sources)Bilateral angle-closure glaucoma; Translations: [Chronic angle- closure glaucoma, bilateral, stage unspecified]Onset: ChronicHypertension with complications and secondary hypertension (20 sources)Hypertensive renal disease; Translations: [Hypertensive chronic kidney disease with stage 1 throughstage 4 chronic kidney disease, or unspecified chronic kidney disease]Onset: 765974-10-2260NqkleuwNuqktkq and fatigue (20 sources)Fatigue; Translations: [Chronic fatigue, unspecified]Onset: 085810-56-5102AfwdkybMzen disorders (20 sources)Recurrent major depression in partial remission; Translations: [Major depressive disorder, recurrent, in partial remission]Onset: 02-08-2023 12-49-1784WmenrkaAyamziz (6 sources)Candidiasis of skin; Translations: [Candidiasis of skin and nail] 31-92-2943UmemghubEuipblmfp; nephrosis; renal sclerosis (2 sources)Recurrent hematuria; Translations: [Recurrent and persistent hematuria with unspecified morphologicchanges]Onset: hronic Other acquired deformities (1 source)Spondylolisthesis, lumbosacral region; Translations: [Spondylolisthesis, lumbosacral region]Onset: 87-29-9541GvbzsvjoOowdu aftercare (1 source)Other halfway (current) drug therapy; Translations: [OTH DATA COMMUNICATIONS ANALYST CURRENT DRUG THERAPY]Onset: 10-57-9768TevjzgclHsygy aftercare (1 source)terminologist (current) use of aspirin; Translations: [USP CURRENT USE OF ASPIRIN]Onset: 55-45-4731TtaxznwjZcvyb bone disease and musculoskeletal deformities (2 sources)Osteopenia; Translations: [Other specified disorders of bone density and structure, unspecified site]70-97-4924AqihwhaaUqdfg connective tissue disease (20 sources)Artificial knee joint present; Translations: [Presence of unspecified artificial knee joint]Onset: 364093-37-5508EgbdxnrBetuu connective tissue disease (2 sources)History of reverse prosthetic total arthroplasty of left shoulder; Translations: [Presence of left artificial shoulder joint]Onset: 07-04-2023 90-63-7943UarpsgzYozag connective tissue disease (2 sources)History of reverse prosthetic total arthroplasty of right shoulder; Translations: [Presence of right artificial shoulder joint]31-36-3895Lthadbw Other connective tissue disease (4 sources)Pain in right foot; Translations: [PAIN IN RIGHT FOOT]Onset: 56-78-1141ScmkvxdlIdxce connective tissue disease (3 sources)Pain in right foot; Translations: [Pain in right foot]10-27-2024 EpisodicOther connective tissue disease (10 sources)Other symptoms and signs involving the musculoskeletal system; Translations: [Other musculoskeletalsymptoms referable to limbs]10-27-2024 EpisodicOther connective tissue disease (2 sources)Swelling of right lower limb; Translations: [Other specified soft tissue disorders]23-09-0780EghfmnczIbwhc nervous system disorders (6 sources)Carpal tunnel syndrome of right wrist; Translations: [Carpal tunnel syndrome, right upper limb]98-25-9408HcngbljTwbezdm on above:Problem List clean- up per request of Phys. EHR CmteOther nervous system disorders (2 sources)Carpal tunnel syndrome, right upper limbChronicOther nervous system disorders (1 source)Carpal tunnel syndrome; Translations: [Carpal tunnel syndrome, right upper limb]22-64-3395AvwvqwyDwtjo nervous system disorders (20 sources)Chronic pain syndrome; Translations: [Chronic pain syndrome]Onset: 802375-54-3048QfzdsxfWzwqr nervous system disorders (2 sources)Neuropathy of lower limb; Translations: [Unspecified mononeuropathy of left lower limb]Onset: 788147-39-9809WiabcnkDgarn nervous system disorders (20 sources)Lesion of ulnar nerve, left upper limb; Translations: [Lesion of ulnar nerve]Onset: 350036-85-2253NfacxdaMjjhc nervous system disorders (2 sources)Neuropathy; Translations: [Polyneuropathy, unspecified]12-16-2024 ChronicOther nervous system disorders (1 source)Postoperative pain ; Translations: [Other acute postprocedural pain] 08-29-1889HlbyimdvVyufw nervous system disorders (2 sources)Limping; Translations: [Other abnormalities of gait and mobility] 65-73-5456CrtbxbkzUnrmx nutritional; endocrine; and metabolic disorders (20 sources)Obese class I; Translations: [Obesity, unspecified]Onset: 02-08-2023 13-16-5630EunqslsAgbhg nutritional; endocrine; and metabolic disorders (20 sources)Insulin resistance; Translations: [Insulin resistance]Onset: 107744-40-6103EgvsmdqCbeiu screening for suspected conditions (not mental disorders or infectious disease) (11 sources)Patient encounter status; Translations: [Encounter for follow-up examination after completed treatment for conditions other than malignant neoplasm]83-01-1049KwkfgupyJumdy skin disorders (1 source)Localized swelling, mass and lump, right lower limb; Translations: [LOC SWELL MASS LUMP RT LOWER LIMB]Onset: 87-61-3256LnrhqxduQksil skin disorders (4 sources)Dystrophia unguium; Translations: [Nail dystrophy]61-99-6229Yjhuazro Residual codes; unclassified (2 sources)Active advance directive (copy within chart) ; Translations: [Other specified health status]42-27-8865WadrtxsrZluurevt codes; unclassified (2 sources)Menopause present; Translations: [Asymptomatic menopausal state] 83-32-6228JzceyhhwGhdqrjmc codes; unclassified (2 sources)Cardiovascular event risk; Translations: [Other specified personal risk factors, not elsewhere classified]67-78-3744KpmcljaoDjfdtryuvg arthritis and related disease (20 sources)Rheumatoid arthritis of multiple joints; Translations: [Rheumatoid arthritis, unspecified]Onset: 40-08-5036DuhflqxWafveropbuh; intervertebral disc disorders; other back problems (20 sources)Cervical spondylosis without myelopathy; Translations: [Spondylosis without myelopathy or radiculopathy, cervical region]Onset: 51-42-9589Kxmtval Spondylosis; intervertebral disc disorders; other back problems (11 sources)Neck pain; Translations: [Cervicalgia]Onset: EpisodicSubstance-related disorders (20 sources)Nicotine dependence, cigarettes, uncomplicated; Translations: [Smoker]Onset: 446596-12-2529GteoxhmZipyhwoy lupus erythematosus and connective tissue disorders (20 sources)Dermatomyositis; Translations: [Dermatopolymyositis, unspecified, organ involvement unspecified]Onset: 859133-12-3978Qgsftze Past or Other Problems Problem ClassificationProblemDateDocumented DateEpisodic/ChronicDiabetes mellitus with complications (20 sources)Disorder of nervous system due to diabetes mellitus; 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]Onset: 02-08-2023 Resolved: 290483-57-1059PkivaixYyknbnju mellitus without complication (20 sources)Prediabetes; Translations: [Abnormal glucose tolerance test]Onset: 422614-41-0660FscestpfGcamruylxwdno symptoms and ill-defined conditions (20 sources)Asymptomatic microscopic hematuria; Translations: [Asymptomatic microscopic hematuria]Onset: 395281-73-1010QneconotWjdf disorders (20 sources)Mood disordersOnset: 02-05-2024 Resolved: 690087-13-5523Zcuygapbtjhoua (20 sources)Primary generalized (osteo)arthritis; Translations: [Arthritis of right acromioclavicular joint]Onset: 08-19-2022 Resolved: 741246-81-4197BquzysfNmelj acquired deformities (20 sources)Spondylolisthesis; Translations: [Spondylolisthesis, cervical region]Onset: 246069-26-9674GvwnauzvPfrvh acquired deformities (20 sources)Leg length inequality; Translations: [Unequal limb length (acquired), unspecified site]Onset: 939479-05-0568NhdpequwXulks aftercare (1 source)terminologist (current) use of oral hypoglycemic drugs; Translations: [DATA COMMUNICATIONS ANALYST USE ORAL HYPOGLYCEMIC DX]Onset: 35-99-4732GifeldscWgyex aftercare (20 sources)Polypharmacy ; Translations: [Other halfway (current) drug therapy]Onset: 813232-11-2281DjfvmngqSjxry connective tissue disease (20 sources)History of total knee arthroplasty; Translations: [Presence of left artificial knee joint]Onset: 02-08-2023 Resolved: 503510-26-2434XedtipjXdlbs connective tissue disease (3 sources)Other specified soft tissue disorders; Translations: [OTHER SPEC SOFT TISSUE DISORDERS]Onset: 97-34-2374YljeqhkiKekre connective tissue disease (1 source)Pain in left hand; Translations: [PAIN IN LEFT HAND]Onset: 11-22-2021 EpisodicOther connective tissue disease (1 source)Pain in right hand; Translations: [PAIN IN RIGHT HAND]Onset: 97-14-1874InrfehhgVdlnd connective tissue disease (20 sources)Osteophyte of bone; Translations: [Enthesopathy, unspecified]Onset: 02-08-2023 Resolved: 499010-99-5264LdmjrwyeWgqmv connective tissue disease (20 sources)Tear of right rotator cuff; Translations: [Unspecified rotator cuff tear or rupture of right shoulder, not specified as traumatic]Onset: 02-08-2023 Resolved: 726450-18-4515MbeyajbaSbcwi connective tissue disease (20 sources)Tear of left rotator cuff; Translations: [Unspecified rotator cuff tear or rupture of left shoulder, not specified as traumatic]Onset: 02-08-2023 Resolved: 637064-43-8604UrhbhvwjIoqip connective tissue disease (20 sources)Pain in left foot; Translations: [Pain in left foot]Onset: 407476-44-3671CbkcxqnjLsqug diseases of veins and lymphatics (20 sources)Vascular insufficiency; Translations: [Venous insufficiency (chronic) (peripheral)]Onset: 907382-91-9474ByrycphyTkhoj gastrointestinal disorders (20 sources)Stool DNA-based colorectal cancer screening positive; Translations: [Other fecal abnormalities]Onset: 05-23-2024 Resolved: 086355-72-2470NdnyigazLbkyf nervous system disorders (20 sources)Left leg peripheral neuropathy; Translations: [Unspecified mononeuropathy of left lower limb]Onset: 02-08-2023 Resolved: 711297-14-2085SgmlhqvUmkeg non-traumatic joint disorders (1 source)Pain in left wrist; Translations: [PAIN IN LEFT WRIST]Onset: 28-65-2928YzhjpzjfVyzat non-traumatic joint disorders (1 source)Pain in right wrist; Translations: [PAIN IN RIGHT WRIST]Onset: 79-11-3190WftlgcpaSbaku non-traumatic joint disorders (20 sources)Pain in left shoulder; Translations: [Pain in joint, shoulder region]Onset: 07-04-2023 Resolved: 327666-19-0598WzjoqjggUevrqbaf codes; unclassified (20 sources)History of abdominal hysterectomy; Translations: [Acquired absence of both cervix and uterus]Onset: [id number] Results Test NameValueInterpretationReference RangeFacilityCBC (INCLUDES DIFF/PLT)on 14-78-0694Btgpdwcil (Bld) [#/Vol]0.052 10*3/uLNormal0-200[facility] Comment on above:Performed By: #### 949, 52943, 6900 #### [facility] [address], [address] [place] [address] Buyer Assistant: Edgardo Lake MDBasophils/100 WBC (Bld)0.8 %NormalQuest DiagnosticsComment on above:Performed By: #### 809, 08741, 6399 #### [facility] of [address], [address] [place] [address] Buyer Assistant: Edgardo Lake MDEosinophils (Bld) [#/Vol]0.124 10*3/uLNormal 15-500Quest DiagnosticsComment on above:Performed By: #### 809, 66176, 6399 #### [facility] of [address], [address] [place] [address] Buyer Assistant: Edgardo NGosinophils/100 WBC (Bld)1.9 %NormalQuest DiagnosticsComment on above:Performed By: #### 809, 34484, 6399 #### [facility] of [place] [address] Buyer Assistant: Edgardo Lake MDErythrocyte distribution width (RBC) [Ratio] 16.7 %High11.0-15.0Quest DiagnosticsComment on above:Performed By: #### 809, 90981, 6399 #### [facility] of [place] [address] Buyer Assistant: Edgardo Lake MDHematocrit (Bld) [Volume fraction]35.1 %Normal 35.0-45.0Quest DiagnosticsComment on above:Performed By: #### 809, 86617, 6399 #### [facility] of [place] [address] Buyer Assistant: Edgardo Lake MDHemoglobin (Bld) [Mass/Vol]11.3 g/dLLow 11.7-15.5Quest DiagnosticsComment on above:Performed By: #### 809, 26407, 6399 #### [facility] of [address], [address] [place] [address] Buyer Assistant: Edgardo Lake MDLymphocytes (Bld) [#/Vol]1.905 10*3/uLNormal 850-3900Quest DiagnosticsComment on above:Performed By: #### 809, 28380, 6399 #### [facility] of [address], [address] [place] [address] Buyer Assistant: Edgardo Lake MDLymphocytes/100 WBC (Bld)29.3 %NormalQuest DiagnosticsComment on above:Performed By: #### 809, 02794, 6399 #### [facility] of [address], [address] [place] [address] Buyer Assistant: Edgardo Lake MDMCH (RBC) [Entitic mass]28.1 tmMydlax01.0-33.0 [facility] DiagnosticsComment on above:Performed By: #### 809, 22716, 6399 #### [facility] of [address], [address] [place] [address] Buyer Assistant: Edgardo Lake MDMCHC (RBC) [Mass/Vol]32.2 g/qKQmoilz85.0-36.0 [facility] DiagnosticsComment on above:Result Comment: For adults, a slight decrease in the calculated MCHC value (in the range of 30 to 32 g/dL) is most likely not clinically significant; however, it should be interpreted with caution in correlation with other red cell parameters and the patient's clinical condition.Performed By: #### 809, 55525, 6399 #### [facility] of [address], [address] [place] [address] Buyer Assistant: Edgardo Lake MDMCV (RBC) [Entitic vol]87.3 nMOgeqii98.0-100.0 [facility] DiagnosticsComment on above:Performed By: #### 809, 46205, 6399 #### [facility] of [address], [address] [place] [address] Buyer Assistant: Edgardo Lake MDMonocytes (Bld) [#/Vol]0.26 10*3/uLNormal 200-950Quest DiagnosticsComment on above:Performed By: #### 809, 99963, 6399 #### [facility] of [address], [address] [place] [address] Buyer Assistant: Edgardo Lake MDMonocytes/100 WBC (Bld)4.0 %NormalQuest DiagnosticsComment on above:Performed By: #### 809, 74836, 6399 #### [facility] of [place] [address], [address] [place] [address] Buyer Assistant: Edgardo Lake MDNeutrophils (Bld) [#/Vol]4.16 10*3/uLNormal 1500-7800Quest DiagnosticsComment on above:Performed By: #### 809, 21336, 6399 #### [facility] of [address], [address] [place] [address] Buyer Assistant: Edgardo Lake MDNeutrophils/100 WBC (Bld)64 %NormalQuest DiagnosticsComment on above:Performed By: #### 809, 06078, 6399 #### [facility] of [address], [address] [place] [address] Buyer Assistant: Edgardo Lake MDPlatelet mean volume (Bld) [Entitic vol]8.8 fL Normal7.5-12.5Quest DiagnosticsComment on above:Performed By: #### 809, 58537, 6399 #### [facility] of [address], [address] [place] [address] Buyer Assistant: Edgardo Lake MDPlatelets (Bld) [#/Vol]385 10*3/uLNormal 140-400Quest DiagnosticsComment on above:Performed By: #### 809, 00879, 6399 #### [facility] of [address], [address] [place] [address] Buyer Assistant: Edgardo Lake MDRBC (Bld) [#/Vol]4.02 10*6/uLNormal3.80-5.10 [facility]osticsComment on above:Performed By: #### 809, 86178, 6399 #### [facility] of [address], [address] [place] [address] Buyer Assistant: Edgardo Lake MDWBC (Bld) [#/Vol]6.5 10*3/uLNormal3.8-10.8 [facility]osticsComment on above:Performed By: #### 809, 24741, 6399 #### [facility] [address] [facility], [address] [place] [address] Buyer Assistant: Edgardo Lake [facility] HOBARTBC W Auto Differential panel (Bld)on 87-39-5537Xstuopukz (Bld) [#/Vol]52 10*3/uLNOMS HealthcareBasophils/100 WBC (Bld)0.8 %NOMS HealthcareEosinophils (Bld) [#/Vol]124 10*3/uLNOMS Healthcare Eosinophils/100 WBC (Bld)1.9 %NOMS HealthcareErythrocyte distribution width (RBC) [Ratio]16.7 %High11.0 - 15.0 %NOM HealthcareHematocrit (Bld) [Volume fraction]35.1 %35.0 - 45.0 %NOM HealthcareHemoglobin (Bld) [Mass/Vol]11.3 g/dL Low11.7 - 15.5 g/dLHIGHLAND RIDGE HOSPITAL HealthcareLymphocytes (Bld) [#/Vol]1905 10*3/uLNOMS HealthcareLymphocytes/100 WBC (Bld)29.3 %[facility]ox MonettMCH (RBC) [Entitic mass] 28.1 pg27.0 - 33.0 pgNOMercy Hospital WashingtonHC (RBC) [Mass/Vol]32.2 g/dL32.0 - 36.0 g/dLNOSD HealthcareComment on above:For adults, a slight decrease in the calculated MCHC value (in the range of 30 to 32 g/dL) is most likely not clinically significant; however, it should be interpreted with caution in correlation with other red cell parameters and the patient's clinical condition. MCV (RBC) [Entitic vol]87.3 fL80.0 - 100.0 fLNOSD HealthcareMonocytes (Bld) [#/Vol]260 10*3/uLNOMS HealthcareMonocytes/100 WBC (Bld)4 %[facility] Neutrophils (Bld) [#/Vol]4160 10*3/uLNOMS HealthcareNeutrophils/100 WBC (Bld)64 %NOMS HealthcarePlatelet mean volume (Bld) [Entitic vol]8.8 fL7.5 - 12.5 fLNOSD HealthcarePlatelets (Bld) [#/Vol]385 10*3/uLNOSD HealthcareRBC (Bld) [#/Vol]4.02 10*6/uLHIGHLAND RIDGE HOSPITAL HealthcareWBC (Bld) [#/Vol]6.5 10*3/[facility] HealthcareCOMPREHENSIVE METABOLIC PANELon 31-76-2503Adaufrq [Mass/Vol]3.7 g/dLNormal3.6-5.1[facility] DiagnosticsComment on above:Performed By: #### 809, 43438, 6399 #### [facility] of [place] [address] Buyer Assistant: Edgardo Lake MDAlbumin/Globulin [Mass ratio]1.4 {ratio}Normal 1.0-2.5Quest DiagnosticsComment on above:Performed By: #### 809, 71606, 6399 #### [facility] of [place] [address] Buyer Assistant: Edgardo Lake MDALP [Catalytic activity/Vol]124 U/LNormal 37-153Quest DiagnosticsComment on above:Performed By: #### 809, 37737, 6399 #### [facility] of [place] [address] Buyer Assistant: Edgardo Lake MDALT [Catalytic activity/Vol]8 U/LNormal6-29 [facility] DiagnosticsComment on above:Performed By: #### 809, 87186, 6399 #### [facility] of [place] [address] Buyer Assistant: Edgardo Lake MDAST [Catalytic activity/Vol]14 U/UFrrket37-97 [facility] DiagnosticsComment on above:Performed By: #### 809, 15959, 6399 #### [facility] of [address] [address] Buyer Assistant: Edgardo Lake MDBilirubin [Mass/Vol]0.4 mg/dLNormal0.2-1.2 [facility] DiagnosticsComment on above:Performed By: #### 809, 52836, 6399 #### [facility] of [address], [address] [place] [address] Buyer Assistant: Edgardo Lake MDBUN/CREATININE RATIOSEE NOTE:Normal6-22Quest DiagnosticsComment on above:Result Comment: Not Reported: BUN and Creatinine are within reference range.Performed By: #### 809, 98199, 6399 #### [facility] of [address], [address] [place] [address] Buyer Assistant: Edgardo Lake MDCalcium [Mass/Vol]9.0 mg/dLNormal8.6-10.4[facility] DiagnosticsComment on above:Performed By: #### 809, 99043, 6399 #### [facility] of [address], [address] [place] [address] Buyer Assistant: Edgardo Lake MDChloride [Moles/Vol]99 mmol/DHsoshu49-124Lozob DiagnosticsComment on above:Performed By: #### 809, 69185, 6399 #### [facility] of [place] [address] Buyer Assistant: Edgardo Lake MDCO2 [Moles/Vol]28 mmol/QDevair47-99Wdqtx DiagnosticsComment on above:Performed By: #### 809, 41999, 6399 #### [facility] of [address], [address] [place] [address] Buyer Assistant: Edgardo LEALreatinine [Mass/Vol]0.62 mg/dLNormal0.60-1.00 [facility]osticsComment on above:Performed By: #### 809, 59682, 6399 #### [facility] of [address], [address] [place] [address] Buyer Assistant: Edgardo Lake MDGFR/1.73 sq M.predicted among non-blacks MDRD (S/P/Bld) [Vol rate/Area]94 mL/min/{1.73_m2}Normal> OR = 60[facility] Comment on above:Performed By: #### 809, 94749, 6399 #### [facility] [address], [address] [place] [address] Buyer Assistant: Edgardo Lake MDGlobulin (S) [Mass/Vol]2.6 g/dLNormal1.9-3.7 [facility] DiagnosticsComment on above:Performed By: #### 809, 51687, 6399 #### [facility] [place] [address] Buyer Assistant: Edgardo Lake MDGlucose [Mass/Vol]128 mg/mKJrek12-57Gqizy DiagnosticsComment on above:Result Comment: Fasting reference interval For someone without known diabetes, a glucose value >125 mg/dL indicates that they may have diabetes and this should be confirmed with a follow-up test.Performed By: #### 809, 06995, 6399 #### [facility] [place] [address] Buyer Assistant: Edgardo Lake MDPotassium [Moles/Vol]3.9 mmol/LNormal3.5-5.3 [facility] DiagnosticsComment on above:Performed By: #### 809, 66592, 8099 #### [facility] [place] [address] Buyer Assistant: Edgardo Lake MDProtein [Mass/Vol]6.3 g/dLNormal6.1-8.1Quest DiagnosticsComment on above:Performed By: #### 809, 91721, 1499 #### [facility] [place] [address] Buyer Assistant: Edgardo Lake MDSodium [Moles/Vol]135 mmol/YMbgeqt561-147Fbayz DiagnosticsComment on above:Performed By: #### 809, 47085, 6399 #### [facility] [address], [address] [place] [address] Buyer Assistant: Edgardo Lake MDUrea nitrogen [Mass/Vol]15 mg/dLNormal7-25 [facility]osticsComment on above:Performed By: #### 809, 57713, 6399 #### [facility] [address], [address] [place] [address] Buyer Assistant: Edgardo Lake [facility] HOBARTomprehensive metabolic panelon 05-27-2025 Albumin [Mass/Vol]3.7 g/dL3.6 - 5.1 g/dLNOSD HealthcareAlbumin/Globulin [Mass ratio]1.4 {ratio}NOMS HealthcareALP [Catalytic activity/Vol]124 [...] (S/P/Bld) [Vol rate/Area]94 mL/min/{1.73_m2}> OR = 60 mL/min/1.88x9NUXS HealthcareGlobulin (S) [Mass/Vol]2.6 g/dLNOMS HealthcareGlucose [Mass/Vol]128 mg/lIUzpn00 - 99 mg/dLNOMS HealthcareComment on above: Fasting reference interval For someone without known diabetes, a glucose value >125 mg/dL indicates that they may have diabetes and this should be confirmed with a follow-up test. Potassium [Moles/Vol]3.9 mmol/L3.5 - 5.3 mmol/LNOMS HealthcareProtein [Mass/Vol] 6.3 g/dL6.1 - 8.1 g/dLNOSD HealthcareSodium [Moles/Vol]135 mmol/L135 - 146 mmol/LNOMS HealthcareUrea nitrogen [Mass/Vol]15 mg/dL7 - 25 mg/dLNOMS Healthcare Urea nitrogen/Creatinine [Mass ratio]SEE NOTE:NOMS HealthcareComment on above: Not Reported: BUN and Creatinine are within reference range. No Panel Informationon 11-70-9851Tmysinrmqbwhzk and review of laboratory results AbnormalNOSD HealthcarePerforming Organization Information Site ID: QPT Name: [employer] [facility] Address: [address] [place] [address], [address] [place] [address] Director: Edgardo Lake MDMetropolitan Saint [facility] Psychiatric Center HealthcareSED RATE BY MODIFIED WESTERGRENon 98-87-2460EOS RATE BY MODIFIED YNOZPQIQKZ94 mm/hNormal< OR = 30 [facility] DiagnosticsComment on above:Performed By: #### 809, 36892, 6399 #### [facility] [address], [address] [place], [place] [address] Buyer Assistant: Edgardo Lake MDSedimentation rate, automatedon 46-69-5940AOS (Bld) [Velocity]22 mm/h< OR = 30NOSD HealthcareX-ray reportOrdered By: Guido Salcedo on 25-57-1125Pwzua reportOHIOHEALTH GRADY [place] [address] XRay Report Signed Patient: Disha De La Garza MR#: [id number] : 1950 Acct:[id number] Age/Sex: 75 / F ADM Date: 5 Loc: XD Room: Type: [facility] Attending Dr: Willie Garcia MD Copies to: [...] Salcedo DO 04/09/25 164 Signed By: 04/09/251651 [facility] Columbustudy reportOHIOHEALTH GRADY MEMORIAL [facility] [place] [address] [place] [address] XRay Report Signed Patient: Disha De La Garza MR#: [id number] : 1950 Acct:[id number] Age/Sex: 75 / F ADM Date: 5 Loc: XD Room: Type: [facility] Attending Dr: Willie Garcia MD Copies to: [...] Medical CenterXR lumbar spine 6V w bendingon 59-81-9340KA lumbar spine 6V w bendingOHIOHEALTH GRADY [facility]ORIAL [facility] [place] [address] [place] [address] XRay Report Signed Patient: Disha De La Garza MR#: [id number] : 1950 Acct:[id number] Age/Sex: 75 / F ADM Date: 04/09/25 [...] Salcedo M.D. 04/09/2025 4:52 PM Dictation Location: [place] [address] Transcribed By: [facility] 04/09/25 1652 Dictated By: Guido Salcedo DO 04/09/25 1649 Signed By: 04/09/25 [facility] Physician GroupXR pelvis 1-2Von 57-26-5335WX pelvis 1-2VOHIOHEALTH GRADY MEMORIAL HOS[facility] [place] [address] [place] [address] XRay Report Signed Patient: Disha De La Garza MR#: [id number] : 1950 Acct:[id number] Age/Sex: 75 / F ADM Date: 04/09/25 [...] Salcedo M.D. 04/09/2025 3:15 PM Dictation Location: [place] [address] Transcribed By: [facility] 04/09/25 151 Dictated By: Guido Salcedo DO 04/09/251512 Signed By: 04/09/25 [facility] TOMOSYNTHESIS SCREENING BIon 31-82-1686[place]gz[place] [address] Mammography Report Signed Patient: DISHA DE LA GARZA MR#: [id number] : 1950 Acct:[id number] Age/Sex: 74 / F ADM Date: 02/27/25 Loc: MAMMO Attending Dr: WILL TIM Ordering Physician: WILL TIM Results: Date of Service: 02/27/25 Follow Up: Procedure(s): MM tomosynthesis screening BI Accession Number(s): [id number] cc: WILL TIM Patient Name: DISHA DE LA GARZA MR#: [id number] : 1950 Exam Date: 02/27/2025 Ordering Doctor: [...] throat cancer at age 77. LOCATION: [facility] BREAST COMPOSITION: The breasts are almost [...] Signed By: 02/27/25 1438 DD/ 1437 TD/TT: Director Apparel:TBHRadiology, Radiologist, - 02/27/2025 [place] [address] Mammography Report Signed Patient: DISHA DE LA GARZA MR#: [id number] : 1950 Acct:[id number] Age/Sex: 74 / F ADM Date: 02/27/25 Loc: MAMMO Attending Dr: WILL TIM Ordering Physician: WILL TIM Results: Date of Service: 02/27/25 Follow Up: Procedure(s): MM tomosynthesis screening BI Accession Number(s): [id number] cc: WILL TIM Patient Name: DISHA DE LA GARZA MR#: [id number] : 1950 Exam Date: 02/27/2025 Ordering Doctor: [...] throat cancer at age 77. LOCATION: [facility] BREAST COMPOSITION: The breasts are [...] Signed By: 02/27/25 1438 DD/ 36 TD/TT: Director Apparel: LETI [facility] HospitalRadiology Study observation (narrative)[facility] TOMOSYNTHESIS SCREENING BIOrdered By: Radiologist Radiology on 32-31-6364ILMR [employer] Work Phone: LUMBAR SPINE WO CONon 57-82-6479[place] [address] Magnetic Resonance Report Signed Patient: DISHA DE LA GARZA MR#: [id number] : 1950 Acct:[id number] Age/Sex: 74 / F ADM Date: 02/27/25 Loc: MRI Attending Dr: Quin Hernandez NP Ordering Physician: Quin Hernandez NP Date of Service: 02/27/25 Procedure(s): MR lumbar spine wo con Accession Number(s): [id number] cc: Quin Hernandez NP; WILL TIM [place] [address] Patient Name: DISHA DE LA GARZA MRN: [facility]:[id number] date: 1950 Sex: F Assigned Patient Location: MRI Current Patient Location: MRI Accession/Order Number: [id number] Exam Date: 02/27/2025 15:30 Report Date: 02/27/2025 [...] Salcedo M.D. 02/27/2025 3:36 PM Dictation Location: [place] [address] Electronically authenticated by: [id number] Y Date: 02/27/2025 15:36 Dictated By: Guido Salcedo D.O. Signed By: 02/27/25 1539 DD/ 1536 TD/TT: Director Apparel:TBHRadiology, Radiologist, MD - 02/27/2025 [place] [address] Magnetic Resonance Report Signed Patient: DISHA DE LA GARZA MR#: [id number] : 1950 Acct:[id number] Age/Sex: 74 / F ADM Date: 02/27/25 Loc: MRI Attending Dr: Quin Hernandez NP Ordering Physician: Quin Hernandez NP Date of Service: 02/27/25 Procedure(s): MR lumbar spine wo con Accession Number(s): [id number] cc: Quin Hernandez NP; WILL TIM [place] [address] Patient Name: DISHA DE LA GARZA MRN: [facility]:[id number] date: 1950 Sex: F Assigned Patient Location: MRI Current Patient Location: MRI Accession/Order Number: [id number] Exam Date: 02/27/2025 15:30 Report Date: 02/27/2025 [...] Salcedo M.D. 02/27/2025 3:36 PM Dictation Location: [place] [address] Electronically authenticated by: [id number] Y Date: 02/27/2025 15:36 Dictated By: Guido Salcedo D.O. Signed By: 02/27/25 1539 DD/ 1536 TD/TT: Director Apparel: LETI HealthcareRadiology Study observation (narrative)Cox MonettMR LUMBAR SPINE WO CONOrdered By: Radiologist Radiology on 58-56-3725ROML [employer] Work Phone: aLBUMIN, RANDOM URINE W/CREATININEon 02-14-2025 ALBUMIN, URINE3.7 mg/dLNormalSee Note:Quest DiagnosticsComment on above:Result Comment: Reference Range: Reference Range Not establishedPerformed By: #### 6517, 496 #### [facility] [address], [address] [place] [address] Buyer Assistant: Edgardo Lake MDALBUMIN/CREATININE RATIO, RANDOM PKULH307 mg/g creatHigh<30Quest DiagnosticsComment on above:Result Comment: The [...] By: #### 6517, 496 #### [facility] [address], [address] [place] [address] Buyer Assistant: Edgardo Lake MDCreatinine (U) [Mass/Vol]24 mg/kHUxkumo05-796 [facility] DiagnosticsComment on above:Performed By: #### 6517, 496 #### [facility] [address], [address] [place] [address] Buyer Assistant: Edgardo Lake MDHEMOGLOBIN A1con 87-64-6151GlK5p (Bld) [Mass fraction]5.6 %Normal<5.7Quest DiagnosticsComment on above:Result [...] diagnosis of diabetes in children. According to [place] Diabetes Association (ADA) guidelines, hemoglobin A1c <7.0% represents optimal control in non- diabetic patients. Different metrics may apply to specific patient populations. Standards of Medical Care in Diabetes(ADA).Performed By: #### 6517, 496 #### [facility] [address], [address] [place] [address] Buyer Assistant: Edgardo Lake MDLaboratory - Hematology and Cell countson 67-42-0202PjY7p (Bld) [Mass fraction]5.6 %NINF - 5.7 %NOM [...] diagnosis of diabetes in children. According to [place] Diabetes Association (ADA) guidelines, hemoglobin A1c <7.0% represents optimal control in non- diabetic patients. Different metrics may apply to specific patient populations. Standards of Medical Care in Diabetes(ADA). Microalbumin/Creatinine ratio panel (U)on 25-77-1854Oescuyh DL <= 20 mg/L (U) [Mass/Vol]3.7 mg/dLSee Note:[facility] HealthcareComment on above:Reference Range: Reference Range Not [...] category. Creatinine (U) [Mass/Vol]24 mg/dL20 - 275 mg/dLNOSD HealthcareInterpretation and review of laboratory resultsAbAiken Regional Medical Center Informationon 18-60-6562Jagejwiguz Organization Information Site ID: QPT Name: [facility] Address: [address] [place] [address], [address] [place] [address] Director: Edgardo Lake MDUNC HealthCBC (INCLUDES DIFF/PLT) on 43-93-7924SCXSQVYL BAND NEUTROPHILSNormalQuest DiagnosticsComment on above: Performed By: #### 6399, 41571, 809 #### [facility] of [address], [address] [place] [address] Buyer Assistant: Edgardo DAVIS BASOPHILSNormalQuest Diagnostics Comment on above:Performed By: #### 6399, 51345, 809 #### [facility] of [address], [address] [place] [address] Buyer Assistant: Edgardo DAVIS BLASTSNormalQuest DiagnosticsComment on above:Performed By: #### 6399, 08306, 809 #### [facility] of [address], [address] [place] [address] Buyer Assistant: Edgardo DAVIS EOSINOPHILSNormalQuest Diagnostics Comment on above:Performed By: #### 6399, 77979, 809 #### [facility] of [address], [address] [place] [address] Buyer Assistant: Edgardo TALLEYOLCINTHYA LYMPHOCYTESNormalQuest Diagnostics Comment on above:Performed By: #### 6399, 62551, 809 #### [facility] of [address], [address] [place] [address] Buyer Assistant: Edgardo DAVIS METAMYELOCYTESNormalQuest [facility] Comment on above:Performed By: #### 6399, 05601, 809 #### [facility] of [address], [address] [place] [address] Buyer Assistant: Edgardo DAVIS MONOCYTESNormalQuest [facility] Comment on above:Performed By: #### 6399, 30119, 809 #### [facility] of [place] [address], [address] [place] [address] Buyer Assistant: Edgardo DAVIS MYELOCYTESNormalQuest [facility] Comment on above:Performed By: #### 6399, 06007, 809 #### [facility] of [place] [address] [place] [address] Buyer Assistant: Edgardo DAVIS NEUTROPHILSNormalQuest Diagnostics Comment on above:Performed By: #### 6399, 37718, 809 #### [facility] of [address] , [address] [place] [address] Buyer Assistant: Edgardo DAVIS NUCLEATED RBCNormalQuest [facility] Comment on above:Performed By: #### 6399, 09038, 809 #### [facility] of [place] [address] , [address] [place] [address] Buyer Assistant: Edgardo DAVIS PROMYELOCYTESNormalQuest [facility]ostics Comment on above:Performed By: #### 6399, 71565, 809 #### [facility] of [address] [place] [address] Buyer Assistant: Edgardo W[place] NEUTROPHILSNormalQuest DiagnosticsComment on above:Performed By: #### 6399, 75621, 809 #### [facility] of [place] [address] , [address] [place] [address] Buyer Assistant: Edgardo Lake MDBASOPHILSNormalQuest DiagnosticsComment on above:Performed By: #### 6399, 69895, 809 #### [facility] of [place] [address] [place] [address] Buyer Assistant: Edgardo Lake MDBLASTSNormalQuest DiagnosticsComment on above: Performed By: #### 6399, 61383, 809 #### [facility] of [place] [address], [address] [place] [address] Buyer Assistant: Edgardo Lake MDCOMMENT(S)NormalQuest DiagnosticsComment on above:Performed By: #### 6399, 71917, 809 #### [facility] of [place] [address] , [address] [place] [address] Buyer Assistant: Edgardo Lake MDEOSINOPHILSNormalQuest DiagnosticsComment on above:Performed By: #### 6399, 02185, 809 #### [facility] of [place] [address], [address] [place] [address] Buyer Assistant: Edgardo Lake MDHEMATOCRITNormalQuest DiagnosticsComment on above:Performed By: #### 6399, [address], 809 #### [facility] [place] [address] [address] , [address] [place] [address] Buyer Assistant: Edgardo Lake MDHEMOGLOBINNormalQuest DiagnosticsComment on above:Performed By: #### 6399, 06569, 809 #### [facility] [place] [address], [address] [place] [address] Buyer Assistant: Edgardo Lake MDLYMPHOCYTESNormalQuest DiagnosticsComment on above:Performed By: #### 6399, 31701, 809 #### [facility] [place] [address], [address] [place] [address] Buyer Assistant: Edgardo Lake MDMCHNormalQuest DiagnosticsComment on above: Performed By: #### 6399, 43742, 809 #### [facility] [place] [address], [address] [place] [address] Buyer Assistant: Edgardo Lake MDMCHCNormalQuest DiagnosticsComment on above: Performed By: #### 6399, 90578, 809 #### [facility] [place] [address], [address] [place] [address] Buyer Assistant: Edgardo Lake MDMCVNormalQuest DiagnosticsComment on above: Performed By: #### 6399, 49879, 809 #### [facility] [address], [address] [place] [address] Buyer Assistant: Edgardo ARAMBULAETAMYELOCYTESNormalQuest DiagnosticsComment on above:Performed By: #### 6399, 72836, 809 #### [facility] [address], [address] [place] [address] Buyer Assistant: Edgardo ARAMBULAONOCYTESNormalQuest DiagnosticsComment on above:Performed By: #### 6399, 91286, 809 #### [facility] [place] [address], [address] [place] [address] Buyer Assistant: Edgardo Lake MDMPVNormalQuest DiagnosticsComment on above: Performed By: #### 6399, 29749, 809 #### [facility] [place] [address], [address] [place] [address] Buyer Assistant: Edgardo Lake MDMYELOCYTESNormalQuest DiagnosticsComment on above:Performed By: #### 6399, 16264, 809 #### [facility] [place] [address], [address] [place] [address] Buyer Assistant: Edgardo Lake MDNEUTROPHILSNormalQuest DiagnosticsComment on above:Performed By: #### 6399, 69248, 809 #### [facility] [place] [address], [address] [place] [address] Buyer Assistant: Edgardo Lake MDNUCLEATED RBCNormalQuest DiagnosticsComment on above:Performed By: #### 6399, 82191, 809 #### [facility] [place] [address], [address] [place] [address] Buyer Assistant: Edgardo Lake MDPLATELET COUNTNormalQuest DiagnosticsComment on above:Performed By: #### 6399, 30874, 809 #### [facility] [place] [address], [address] [place] [address] Buyer Assistant: Edgardo Lake MDPROMYELOCYTESNormalQuest DiagnosticsComment on above:Performed By: #### 6399, 23024, 809 #### [facility] [place] [address] Buyer Assistant: Edgardo Lake MDRDWNormalQuest DiagnosticsComment on above: Performed By: #### 6399, 92880, 809 #### [facility] [place] [address] Buyer Assistant: Edgardo Lake MDREACTIVE LYMPHOCYTESNormalQuest Diagnostics Comment on above:Performed By: #### 6399, 69319, 809 #### [facility] [place] [address] Buyer Assistant: Edgardo PADGETTED BLOOD CELL COUNTNormalQuest Diagnostics Comment on above:Performed By: #### 6399, 40705, 809 #### [facility] [place] [address] Buyer Assistant: Edgardo Lake MDWHITE BLOOD CELL COUNTNormalQuest Diagnostics Comment on above:Performed By: #### 6399, 06425, 809 #### [facility] [place] [address] Buyer Assistant: Edgardo Lake MDCOMPREHENSIVE METABOLIC PANELon 01-09-2025 Albumin [Mass/Vol]3.9 g/dLNormal3.6-5.1Quest DiagnosticsComment on above: Performed By: #### 6399, 25226, 809 #### [facility] [place] [address] Buyer Assistant: Edgardo Lake MDAlbumin/Globulin [Mass ratio]1.6 {ratio}Normal 1.0-2.5Quest DiagnosticsComment on above:Performed By: #### 6399, 02186, 809 #### [facility] [place] [address] Buyer Assistant: Edgardo Lake MDALP [Catalytic activity/Vol]140 U/LNormal 37-153Quest DiagnosticsComment on above:Performed By: #### 6399, 68834, 809 #### [facility] [place] [address] Buyer Assistant: Edgardo Lake MDALT [Catalytic activity/Vol]8 U/LNormal6-29 [facility] DiagnosticsComment on above:Performed By: #### 6399, 04983, 809 #### [facility] [place] [address] Buyer Assistant: Edgardo Lake MDAST [Catalytic activity/Vol]13 U/OEidjoy74-45 [facility] DiagnosticsComment on above:Performed By: #### 6399, 45476, 809 #### [facility] [place] [address] Buyer Assistant: Edgardo Lake MDBilirubin [Mass/Vol]0.4 mg/dLNormal0.2-1.2 [facility] DiagnosticsComment on above:Performed By: #### 6399, 04850, 809 #### [facility] [place] [address] Buyer Assistant: Edgardo Lake MDCalcium [Mass/Vol]9.1 mg/dLNormal8.6-10.4Quest DiagnosticsComment on above:Performed By: #### 6399, 81978, 809 #### [facility] [place] [address] Buyer Assistant: Edgardo Lake MDChloride [Moles/Vol]103 mmol/BTgjyns15-337 [facility] DiagnosticsComment on above:Performed By: #### 6399, 70115, 809 #### [facility] [place] [address] Buyer Assistant: Edgardo Lake MDCO2 [Moles/Vol]26 mmol/XWrxrpq47-61Xexhe DiagnosticsComment on above:Performed By: #### 6399, 85696, 809 #### [facility] [place] [address] Buyer Assistant: Edgardo LEALreatinine [Mass/Vol]0.56 mg/dLLow0.60-1.00 [facility] DiagnosticsComment on above:Performed By: #### 6399, 18039, 809 #### [facility] [place] [address] Buyer Assistant: Edgardo Lake MDGFR/1.73 sq M.predicted among non-blacks MDRD (S/P/Bld) [Vol rate/Area]97 mL/min/{1.73_m2}Normal> OR = 60[facility] Comment on above:Performed By: #### 6399, 22698, 809 #### [facility] [place] [address] Buyer Assistant: Edgardo Lake MDGlobulin (S) [Mass/Vol]2.5 g/dLNormal1.9-3.7 Quest DiagnosticsComment on above:Performed By: #### 6399, 66537, 809 #### [facility] [place] [address] Buyer Assistant: Egdardo Lake MDGlucose [Mass/Vol]109 mg/wGFrss69-39Yxstx DiagnosticsComment on above:Result Comment: Fasting reference interval For someone without known diabetes, a glucose value between 100 and 125 mg/dL is consistent with prediabetes and should be confirmed with a follow-up test.Performed By: #### 6399, 23012, 809 #### [facility] [place] [address] Buyer Assistant: Edgardo Lake MDPotassium [Moles/Vol]4.0 mmol/LNormal3.5-5.3 [facility] DiagnosticsComment on above:Performed By: #### 6399, 15475, 809 #### [facility] [address] [place] [address] Buyer Assistant: Edgardo Lake MDProtein [Mass/Vol]6.4 g/dLNormal6.1-8.1Quest DiagnosticsComment on above:Performed By: #### 6399, 87006, 809 #### [facility] [address], [address] [place] [address] Buyer Assistant: Edgardo Lake MDSodium [Moles/Vol]138 mmol/BEehbsv908-720Xolcn DiagnosticsComment on above:Performed By: #### 6399, 36933, 809 #### [facility] [place] [address] Buyer Assistant: Edgardo Lake MDUrea nitrogen [Mass/Vol]12 mg/dLNormal7-25 [facility] DiagnosticsComment on above:Performed By: #### 6399, 75860, 809 #### [facility] [address], [address] [place] [address] Buyer Assistant: Edgardo Lake MDUrea nitrogen/Creatinine [Mass ratio]21 mg/mg Normal6-22Quest DiagnosticsComment on above:Performed By: #### 6399, 22808, 809 #### [facility] [place] [address] Buyer Assistant: Edgardo Lake MDSED RATE BY MODIFIED WESTERGRENon 01-09-2025 SED RATE BY MODIFIED WESTERGRENNormalQuest DiagnosticsComment on above:Performed By: #### 6399, 41352, 809 #### [facility] [place] [address] Buyer Assistant: Edgardo Lake MDC-REACTIVE PROTEINon 71-86-8931VBX [Mass/Vol] 4.5 mg/LNormal<8.0Quest DiagnosticsComment on above:Result Comment: Your request to have a duplicate copy faxed has been acknowledged. Queued to: [id number] By: #### 809, 00933, 6399 #### [facility] [address], [address] Buyer Assistant: Edgardo Lake MDCBC (INCLUDES DIFF/PLT)on 34-25-8853Ncnwulgtj (Bld) [#/Vol]0.033 10*3/uLNormal0-200Quest DiagnosticsComment on above:Performed By: #### 5463, 07662, 6399 #### [facility] [address] [place] [address] Buyer Assistant: Caroline Howard #### 4420 #### [facility] [place] [address] [address] , [address] [place], [place] [phone] Buyer Assistant: Edgardo Lake MDBasophils/100 WBC (Bld)0.3 %NormalQuest DiagnosticsComment on above:Performed By: #### 5463, 44457, 6399 #### [facility] [address] [place], [place] [address] Buyer Assistant: Caroline Howard #### 4420 #### [facility] [place] [address] [address] , [address] [place] [address] Buyer Assistant: Edgardo Lake MDEosinophils (Bld) [#/Vol]0.231 10*3/uLNormal 15-500Quest DiagnosticsComment on above:Performed By: #### 5463, 13381, 6399 #### [facility] [address] [place] [address] Buyer Assistant: Caroline Howard #### 4420 #### [facility] [place] [address] , [address] [place], [place] [phone] Buyer Assistant: Edgardo Lake MDEosinophils/100 WBC (Bld)2.1 %NormalQuest DiagnosticsComment on above:Performed By: #### 5463, 54082, 6399 #### [facility] [address] [place] [address] Buyer Assistant: Caroline Howard #### 4420 #### [facility] [address], [address] [place] [address] Buyer Assistant: Edgardo Lake MDErythrocyte distribution width (RBC) [Ratio] 17.1 %High11.0-15.0Quest DiagnosticsComment on above:Performed By: #### 5463, 78139, 6399 #### [facility] [address] [place], [place] [address] Buyer Assistant: Caroline Howard #### 4420 #### [facility] [address], [address] [place] [address] Buyer Assistant: Edgardo Lake MDHematocrit (Bld) [Volume fraction]38.0 %Normal 35.0-45.0Quest DiagnosticsComment on above:Performed By: #### 5463, 38605, 6399 #### [facility] [address] [place] [address] Buyer Assistant: Caroline Howard #### 4420 #### [facility] [address], [address] [place] [address] Buyer Assistant: Edgardo Lake MDHemoglobin (Bld) [Mass/Vol]12.5 g/dLNormal 11.7-15.5Quest DiagnosticsComment on above:Performed By: #### 5463, 31946, 6399 #### [facility] [address] [place] [phone] Buyer Assistant: Caroline Howard #### 4420 #### [facility] [address], [address] [place] [address] Buyer Assistant: Edgardo Lake MDLymphocytes (Bld) [#/Vol]2.255 10*3/uLNormal 850-3900Quest DiagnosticsComment on above:Performed By: #### 5463, 16818, 6399 #### [facility] [address] [place] [phone] Buyer Assistant: Caroline Howard #### 4420 #### [facility] [address], [address] [place], [place] [phone] Buyer Assistant: Edgardo Lake MDLymphocytes/100 WBC (Bld)20.5 %NormalQuest DiagnosticsComment on above:Performed By: #### 5463, 80891, 6399 #### [place] [address] Buyer Assistant: Caroline Howard #### 4420 #### [facility] [address], [address] [place], [place] [phone] Buyer Assistant: Edgardo Lake MDMCH (RBC) [Entitic mass]29.2 ezVzyutq56.0-33.0 [facility] DiagnosticsComment on above:Performed By: #### 5463, 47419, 6399 #### [place] [address] Buyer Assistant: Caroline Howard #### 4420 #### [facility] [address], [address] [place] [address] Buyer Assistant: Edgardo Lake MDMCHC (RBC) [Mass/Vol]32.9 g/eXPoqrjl25.0-36.0 [facility]osticsComment on above:Performed By: #### 5463, 55175, 6399 #### [facility] [phone] Buyer Assistant: Caroline Howard #### 4420 #### [facility] [address], [address] [place] [address] Buyer Assistant: Edgardo Lake MDMCV (RBC) [Entitic vol]88.8 xGPgmnmy87.0-100.0 [facility] DiagnosticsComment on above:Performed By: #### 5463, 25429, 6399 #### [facility] [address] [place], [place] [address] Buyer Assistant: Caroline Howard #### 4420 #### [facility] [address], [address] [place] [address] Buyer Assistant: Edgardo Lake MDMonocytes (Bld) [#/Vol]0.638 10*3/uLNormal 200-950Quest DiagnosticsComment on above:Performed By: #### 5463, 06983, 6399 #### [facility] [address] [place] [address] Buyer Assistant: Caroline Howard #### 4420 #### [facility] [address], [address] [place] [address] Buyer Assistant: Edgardo Lake MDMonocytes/100 WBC (Bld)5.8 %NormalQuest DiagnosticsComment on above:Performed By: #### 5463, 77017, 6399 #### [facility] [address] [place] [address] Buyer Assistant: Caroline Howard #### 4420 #### [facility] [place] [address], [address] [place] [address] Buyer Assistant: Edgardo Lake MDNeutrophils (Bld) [#/Vol]7.843 10*3/uLHigh 1500-7800Quest DiagnosticsComment on above:Performed By: #### 5463, 29152, 6399 #### [facility] [address] [place] [address] Buyer Assistant: Caroline Howard #### 4420 #### [facility] [address], [address] [place] [address] Buyer Assistant: Edgardo Lake MDNeutrophils/100 WBC (Bld)71.3 %NormalQuest DiagnosticsComment on above:Performed By: #### 5463, 03043, 6399 #### [facility] [address] [place] [address] Buyer Assistant: Caroline Howard #### 4420 #### [facility] [address], [address] [place] [address] Buyer Assistant: Edgardo Merati MDPlatelet mean volume (Bld) [Entitic vol]8.3 fL Normal7.5-12.5Quest DiagnosticsComment on above:Performed By: #### 5463, 96971, 6399 #### [facility] [address] [place] [address] Buyer Assistant: Caroline Howard #### 4420 #### [facility] [place] [address], [address] [place] [address] Buyer Assistant: Edgardo [facility] (Bld) [#/Vol]455 10*3/vDDuxu884-847 [facility]osticsComment on above:Performed By: #### 5463, 77462, 6399 #### [facility] [address] [place] [address] Buyer Assistant: Caroline Howard #### 4420 #### [facility] [place] [address] [address] , [address] [place], [place] [phone] Buyer Assistant: Edgardo Lake [facility] (Bld) [#/Vol]4.28 10*6/uLNormal3.80-5.10 [facility] DiagnosticsComment on above:Performed By: #### 5463, 77243, 6399 #### [facility] [address] [place] [address] Buyer Assistant: Caroline Howard #### 4420 #### [facility] [place] [address] [address] , [address] [place] [address] Buyer Assistant: Edgardo Lake MDNORTHEAST [facility] (Bld) [#/Vol]11.0 10*3/uLHigh3.8-10.8Quest DiagnosticsComment on above:Performed By: #### 5463, 38351, 6399 #### [facility] [address] [place], [place] [address] Buyer Assistant: Caroline Howard #### 4420 #### [facility] [place] [address] [address] , [address] [place], [place] [phone] Buyer Assistant: Edgardo Lake MDCOMPREHENSIVE METABOLIC PANELon 06-10-2024 Albumin [Mass/Vol]4.1 g/dLNormal3.6-5.1Quest DiagnosticsComment on above:Order Comment: FASTING:NO FASTING: NOPerformed By: #### 5463, 74084, 6399 #### [facility] [address] [place] [address] Buyer Assistant: Caroline Howard #### 4420 #### [facility] [address], [address] [place], [place] [phone] Buyer Assistant: Edgardo Lake MDAlbumin/Globulin [Mass ratio]1.5 {ratio}Normal 1.0-2.5Quest DiagnosticsComment on above:Order Comment: FASTING:NO FASTING: NOPerformed By: #### 5463, 14421, 6399 #### [facility] [address] [place] [address] Buyer Assistant: Caroline Howard #### 4420 #### [facility] [address], [address] [place], [place] [phone] Buyer Assistant: Edgardo Lake MDALP [Catalytic activity/Vol]112 U/LNormal 37-153Quest DiagnosticsComment on above:Order Comment: FASTING:NO FASTING: NOPerformed By: #### 5463, 39286, 6399 #### [facility] [address] [place] [address] Buyer Assistant: Caroline Howard #### 4420 #### [facility] [address], [address] [place] [address] Buyer Assistant: Edgardo Lake MDALT [Catalytic activity/Vol]10 U/LNormal6-29 [facility]osticsComment on above:Order Comment: FASTING:NO FASTING: NOPerformed By: #### 5463, 40327, 6399 #### [facility] [address] [place], [place] [address] Buyer Assistant: Caroline Howard #### 4420 #### [facility] [address], [address] Buyer Assistant: Edgardo Lake MDAST [Catalytic activity/Vol]12 U/USclufr38-81 [facility] DiagnosticsComment on above:Order Comment: FASTING:NO FASTING: NOPerformed By: #### 5463, 82371, 6399 #### [facility] [address] [place] [address] Buyer Assistant: Caroline Howard #### 4420 #### [facility] [address], [address] [place] [address] Buyer Assistant: Edgardo Lake MDBilirubin [Mass/Vol]0.6 mg/dLNormal0.2-1.2 [facility] DiagnosticsComment on above:Order Comment: FASTING:NO FASTING: NOPerformed By: #### 5463, 70064, 6399 #### [facility] [address] [place], [place] [address] Buyer Assistant: Caroline Howard #### 4420 #### [facility] [address] , [address] [place] [address] Buyer Assistant: Edgardo Lake MDBUN/CREATININE RATIOSEE NOTE:Normal6-22Quest DiagnosticsComment on above:Order Comment: FASTING:NO FASTING: NOResult Comment: Not Reported: BUN and Creatinine are within reference range.Performed By: #### 5463, 24055, 6399 #### [facility] [address] [place] [address] Buyer Assistant: Caroline Howard #### 4420 #### [facility] [address], [address] [place] [address] Buyer Assistant: Edgardo Lake MDCalcium [Mass/Vol]9.8 mg/dLNormal8.6-10.4Quest DiagnosticsComment on above:Order Comment: FASTING:NO FASTING: NOPerformed By: #### 5463, 37510, 6399 #### [facility] [address] [place], [place] [address] Buyer Assistant: Caroline Howard #### 4420 #### [facility] [address], [address] [place], [place] [phone] Buyer Assistant: Edgardo LEALhloride [Moles/Vol]101 mmol/UIwydle74-234 [facility] DiagnosticsComment on above:Order Comment: FASTING:NO FASTING: NOPerformed By: #### 5463, 59822, 6399 #### [facility] [address] [place] [phone] Buyer Assistant: Caroline Howard #### 4420 #### [facility] [address], [address] [place] [address] Buyer Assistant: Edgardo Lake MDCO2 [Moles/Vol]29 mmol/NXyadhn47-28Rseec DiagnosticsComment on above:Order Comment: FASTING:NO FASTING: NOPerformed By: #### 5463, 52105, 6399 #### [facility] [address] [place] [phone] Buyer Assistant: Caroline Howard #### 4420 #### [facility] [address], [address] [place] [address] Buyer Assistant: Edgardo LEALreatinine [Mass/Vol]0.63 mg/dLNormal0.60-1.00 [facility] DiagnosticsComment on above:Order Comment: FASTING:NO FASTING: NOPerformed By: #### 5463, 12710, 6399 #### [facility] [address] [place] [phone] Buyer Assistant: Caroline Howard #### 4420 #### [facility] [address], [address] [place], [place] [phone] Buyer Assistant: Edgardo Lake MDGFR/1.73 sq M.predicted among non-blacks MDRD (S/P/Bld) [Vol rate/Area]94 mL/min/{1.73_m2}Normal> OR = 60[facility] Comment on above:Order Comment: FASTING:NO FASTING: NOPerformed By: #### 5463, 27021, 6399 #### [facility] [address] [place] [address] Buyer Assistant: Caroline Howard #### 4420 #### [facility] [address], [address] [place] [address] Buyer Assistant: Edgardo Lake MDGlobulin (S) [Mass/Vol]2.7 g/dLNormal1.9-3.7 [facility] DiagnosticsComment on above:Order Comment: FASTING:NO FASTING: NOPerformed By: #### 5463, 96722, 6399 #### [facility] [address] [place] [address] Buyer Assistant: Caroline Howard #### 4420 #### [facility] [address], [address] [place] [address] Buyer Assistant: Edgardo Lake MDGlucose [Mass/Vol]81 mg/gQLffzsu21-531Bckul DiagnosticsComment on above:Order Comment: FASTING:NO FASTING: NOResult Comment: Non-fasting reference intervalPerformed By: #### 5463, 32625, 6399 #### [facility] [address] [place] [address] Buyer Assistant: Caroline Howard #### 4420 #### [facility] [address], [address] [place] [address] Buyer Assistant: Edgardo MUNOZotassium [Moles/Vol]4.4 mmol/LNormal3.5-5.3 [facility] DiagnosticsComment on above:Order Comment: FASTING:NO FASTING: NOPerformed By: #### 5463, 19718, 6399 #### [facility] [address] [place] [address] Buyer Assistant: Caroline Howard #### 4420 #### [facility] [address], [address] [place] [address] Buyer Assistant: Edgardo Merati MDProtein [Mass/Vol]6.8 g/dLNormal6.1-8.1Quest DiagnosticsComment on above:Order Comment: FASTING:NO FASTING: NOPerformed By: #### 5463, 58283, 6399 #### [facility] [address] [place], [place] [address] Buyer Assistant: Caroline Howard #### 4420 #### [facility] [address], [address] [place] [address] Buyer Assistant: Edgardo Lake MDSodium [Moles/Vol]138 mmol/RWxtdwy916-369Ynlup DiagnosticsComment on above:Order Comment: FASTING:NO FASTING: NOPerformed By: #### 5463, 23704, 6399 #### [facility] [address] [place], [place] [address] Buyer Assistant: Caroline Howard #### 4420 #### [facility] [place] [address] Buyer Assistant: Edgardo Lake MDUrea nitrogen [Mass/Vol]16 mg/dLNormal7-25 [facility] DiagnosticsComment on above:Order Comment: FASTING:NO FASTING: NOPerformed By: #### 5463, 26260, 6399 #### [facility] [address] [place], [place] [address] Buyer Assistant: Caroline Howard #### 4420 #### [facility] [place] [address] Buyer Assistant: Edgardo Lake MDSED RATE BY MODIFIED WESTERGRENon 06-10-2024 SED RATE BY MODIFIED IBPSYVIGFQ51 mm/hNormal< OR = 30Quest DiagnosticsComment on above:Performed By: #### 809, 37156, 6399 #### [facility] [address], [address] [place] [address] Buyer Assistant: Edgardo Lake MDURINALYSIS, COMPLETEon 08-15-5615Wukjhnxtmc (U)CLEARNormalCLEARQuest DiagnosticsComment on above:Performed By: #### 809, 90994, 6399 #### [facility] of [address], [address] [place] [address] Buyer Assistant: Edgardo Lake MDBilirubin Ql (U)NegativeNormalNEGATIVEQuest DiagnosticsComment on above:Performed By: #### 809, 11502, 6399 #### [facility] [address], [address] [place] [address] Buyer Assistant: Edgardo LEALolor (U)YELLOWNormalYELLOWQuest Diagnostics Comment on above:Performed By: #### 809, 67078, 6399 #### [facility] [place] [address] Buyer Assistant: Edgardo Lake MDGlucose Ql (U)NegativeNormalNEGATIVEQuest DiagnosticsComment on above:Performed By: #### 809, 20435, 6399 #### [facility] [place] [address] Buyer Assistant: Edgardo Lake MDKetones Ql (U)NegativeNormalNEGATIVEQuest DiagnosticsComment on above:Performed By: #### 809, 10762, 6399 #### [facility] [place] [address] Buyer Assistant: Edgardo Lake MDLeukocyte esterase Test strip Ql (U)Negative NormalNEGATIVEQuest DiagnosticsComment on above:Performed By: #### 809, 26412, 6399 #### [facility] [place] [address] Buyer Assistant: Edgardo Lake MDNitrite Ql (U)NegativeNormalNEGATIVEQuest DiagnosticsComment on above:Performed By: #### 809, 32974, 6399 #### [facility] [place] [address] Buyer Assistant: Edgardo Lake MDNOTENormalQuest DiagnosticsComment on above: Result Comment: This urine was analyzed for the presence of WBC, RBC, bacteria, casts, and other formed elements. Only those elements seen were reported.Performed By: #### 809, 56752, 6399 #### [facility] [place] [address] Buyer Assistant: Edgardo Lake MDOCCULT BLOODNegativeNormalNEGATIVEQuest DiagnosticsComment on above:Performed By: #### 809, 74894, 6399 #### [facility] [place] [address] Buyer Assistant: Edgardo Lake MDpH (U)6.5 [pH]Normal5.0-8.0[facility] Comment on above:Performed By: #### 809, 94458, 6399 #### [facility] [place] [address] Buyer Assistant: Edgardo MUNOZrotein Ql (U)NegativeNormalNEGATIVEQuest DiagnosticsComment on above:Performed By: #### 809, 59704, 6399 #### [facility] [place] [address] Buyer Assistant: Edgardo BUTLERpecific gravity (U) [Rel density]1.010Normal 1.001-1.035Quest DiagnosticsComment on above:Performed By: #### 809, 62494, 6399 #### [facility] [place] [address] Buyer Assistant: Edgardo BUTLERQUAMOUS EPITHELIAL CELLS0-5Normal< OR = 5 [facility] DiagnosticsComment on above:Performed By: #### 809, 86326, 6399 #### [facility] [place] [address] Buyer Assistant: Edgardo Lake MDTRANSITIONAL EPITHELIAL CELLS0-5Normal< OR = 5 [facility] DiagnosticsComment on above:Performed By: #### 809, 66209, 6399 #### [facility] [place] [address] [facility], [address] [place] [address] Buyer Assistant: Edgardo IBANEZ Shoulder - right 2 Viewson 05-13-2024 Imaging Result: May 13, 2024 x-rays AP and lateral of the right shoulder demonstrate reverse total shoulder replacement in good position alignment without signs of loosening fracture or failure. Impression: Stable appearance of right shoulder replacement Mainor Magana D.O.[facility] observation (narrative)[facility] Shoulder - right 2 ViewsOrdered By: Alexis Magana on 05-13-2024 [facility] Work Phone: Coding Summaryon 73-38-9123Sndlka SummaryHTMLBase 64 BocquyqrPXy3dIm+PGhlYWQ+XE3TFCSnD53niHNkdP7sG5OPVRaZJxjnLHVOEIcMIiEjfaBzGK7irIZf ZXJu [file] IGN (more content not included)...[facility] HospitalCoding Summaryon 44-62-8431Yeobvj SummaryHTMLBase 64 SqksbbeuVXl5dBm+PGhlYWQ+WR2ITILkY31lnIPopE8sO6GAMPjECvzoTIFGPPqAGlMfjiJcQG0rlQHg ZXJu [file] IGN (more content not included)...NormalL[facility] HospitalCoding Summaryon 48-90-4639Bxjkrf SummaryHTMLBase 64 InskptnlZAf4mJw+PGhlYWQ+QW7LASJxQ07scQSheA0sX3FZANhCZtxaUUIZNYeZNbSypfCaNS0foPZc ZXJu [file] IGN (more content not included)...NormalOhgruder HospitalCoding Summaryon 27-61-7088Kvuvye SummaryHTMLBase 64 EkeiqvcsSOp3uOi+PGhlYWQ+QU5ZGLMmV17yxYJpzJ0gD5IHOKeVVdolAFHXUZcWBhKbdrEuPD9czBMj ZXJu [file] IGN (more content not included)...[facility] HospitalCoding Summaryon 39-71-4877Vsimte SummaryHTMLBase 64 FnkzhdhnUHk5xEq+PGhlYWQ+UN6MSLIuG35ayQCyeH7vN6GKMWgBSfffYALLSTxSOmFhxwNvZI3fhDNl ZXJu [file] IGN (more content not included)...NormalL[facility] Hospital HospitalCoding SummaryHTMLBase 64 PkccvvddSSx3vLv+PGhlYWQ+FR0DDSUwY23qoNVhjO7vP8JNKYyDRppeSUIXJSjLYjLjooGjIO5cvOAw ZXJu [file] IGN (more content not included)...[facility] HospitalCoding Summaryon 42-59-9451Bekbqx SummaryHTMLBase 64 HsmkjigrBXm0dIw+PGhlYWQ+MZ8KUJRuK40omQNqnQ7yG7SRKViYLkpmGDXPJOmZOfTkxqLxPQ5rwDCb ZXJu [file] IGN (more content not included)...NormalMagruder HospitalConsent Formson 73-33-6336Jhzhhol [id number]#1.00OTGTIFFNormal [facility] HospitalCoding Summaryon 23-51-6951Memkli SummaryHTMLBase 64 ZmdneaubHDi7lAw+PGhlYWQ+SJ3UKNMhY43nvGXyvW3hX2WOCJoYTvefMWVIMRdNHvLyxzBdHY4ktYJy ZXJu [file] IGN (more content not included)...[facility] HospitalCoding Summaryon 46-58-5138Sbtxft SummaryMLBase 64 MmqlpecdXCd0xUb+PGhlYWQ+GF4CRXWlC18ajIRjgY7uI4SVZYaISctxKZCRBWwBYjJifkFbJK8laUQo ZXJu [file] IGN (more content not included)...[facility] HospitalWound Cultureon 33-49-7041Onuqf CultureScant growth of Pseudomonas aeruginosa Rare epithelial [...] Tobra S <=4 Verified Tri/Sulf >2/ VerifiedOhioHealth Dublin Methodist HospitalComment on above:Performed By: #### [id number] ####[facility] (DEFAULT)[address] [place], [place] [address]Hzswji Summaryon 67-47-5362Asmxbe SummaryMLBase 64 LtzkapnyABz7nEm+PGhlYWQ+VF6FMFWbA99lpSIwgZ5iV4RYQWnTJxriVXKKKAmHKjSfbzKoXB7bkDVs ZXJu [file] Y29 (more content not included)...NormalMagrclermont county hospital HospitalMAGR Intraoperative Recordon 30-71-1497GHTR Intraoperative RecordMAGR Intra-Op Record Summary Primary Physician: Alexis Magana DO Finalized Date/Time: 11/02/23 13:43:12 Pt. Name: DISHA DE LA GARZA Pinky Pryor/Sex: 1950 FEMALE Med Rec #: [id number] Physician: Alexis Magana DO Financial #: [id number] Pt. Type: O Room/Bed: [facility] Admit/Disch: 10/29/23 08:16:12 - 10/30/23 [...] Role Performed Surgeon - Primary Anesthesiologist of Mixing Technician Record Time In 10/29/23 10:29:00 10/29/23 10:29:00 [...] E CSFA CST Role Performed Scrub Personnel Business Initiatives Manager Business Initiatives Manager Time In 10/29/23 10:29:00 10/29/23 10:29:00 10/29/23 [...] Delta Lucio MD, Alicia Yeh RN, Jd EQUIPMENT MAN, Kimberly Contreras Lauren M CSFA, Nasreen Agudelo EQUIPMENT MAN Last Modified By: Alicia Yeh RN 10/29/23 11:08:20 Patient Positioning MAGR Pre-Care Text: A.280 Identifies baseline musculoskeletal status Im.40 Positions the patient Im.80 Applies safety devices Entry 1 Procedure Arthroplasty Shoulder Body Positi (more content not included)...Normal [facility] HospitalConsent Formson 01-91-6591Mbjkkil Forms [id number]#1.00[facility] Postoperative Recordon 75-53-5084MDMX Postoperative RecordMAGR Phase II Record Summary Primary Physician: Alexis Magana DO Finalized Date/Time: 10/31/23 10:27:03 Pt. Name: DISHA DE LA GARZA/Sex: 1950 FEMALE Med Rec #: [id number] Physician: Alexis Magana DO Financial #: [id number] Pt. Type: O Room/Bed: [facility] Admit/Disch: 10/29/23 08:16:12 - 10/30/23 [...] discharge instructions. General Comments: patient taken to [facility] for Phase II and possibly spending the night Finalized By: Darshana Menjivar RN Document Signatures Signed By: Darsahna Menjivar RN 10/31/23 10:27[facility] HospitalOutside Recordson 10-31-2023 Outside [id number]#1.00OTGTUniversity Hospitals Beachwood Medical CenterProvider Orderson 70-55-7904Tavchxdw Orders [id number]#1.00[facility] Telemetry Stripson 65-89-3927Lonyefkzh Strips [id number]#1.00[facility] Consultation/Specialist Noteon 51-51-3576Rbztgaftjztz/Specialist NotePatient: DISHA DE LA GARZA Age: 73 [...] [place] [Verified on: 10/30/2023 08:53 EST] [facility] CenterIn[facility] Summaryon 10-30-2023 Inpatient Patient [address] [address] Patient Discharge Instructions Name: DISHA DE LA GARZA : 1950 [facility]: [id number] Patient Address: [address] [place], [place] [address] Primary Care Provider: Name: WILL TIM After you are discharged if you find you have any questions, please, call [phone] ext [phone] to speak to a nurse. The [facility] open Sunday through Sunday from [...] alcohol and/or drug addiction problems; contact the [facility] 09/04 Crisis Hotline -Text 4AXPX kg 017832. If you received any narcotics, sedation, or [...] business decisions or sign any legal documents [facility] would like to thank you for allowing us to assist you with your healthcare needs.The following includes patient education materials and information regarding your injury/illness. DISHA DE LA GARZA has been given the following list of follow-up instructions, prescriptions, and patient education materials: Follow-up Instructions With: Address: When: TREY RICHMOND [address] [place] [address], [address] [place], [place] [address] Business (1) 11/05/2023 11:30 AM With: Address: When: WILL MEETA [address] [facility], [place] [address] Business (1) With: Address: When: Alexis Magana [address] [place] [address], [address] [place] [address] Business (1) 11/06/2023 10:00 AM Medications During [...] (scheduled) as needed Wen (more content not included)...[facility] HospitalPharmacy Noteon 58-72-6435Krqjvtav NoteI have personally reviewed the patient's current [...] [Verified on: 10/30/2023 08:04 EST] Jeet Lambert PharmCleveland ClinicAnesthesia Noteon 10-29-2023 Anesthesia NotePatient: DISHA DE LA GARZA Age: 73 years Sex: FEMALE : 1950 Associated Diagnoses: None Author: Delta Lucio MD Postoperative Information Post Operative Note Health Status Allergies: Allergic Reactions (All) Moderate Plaquenil- Rash. 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 Diabetes / SNOMED CT 189182475 / Confirmed GERD (gastroesophageal reflux disease) / SNOMED CT 497118543 / Confirmed Mixed hyperlipidemia / SNOMED CT 233420245 / Confirmed Obesity / SNOMED CT 9398905424 / Confirmed Recurrent hematuria / SNOMED CT 506299950 / Confirmed Rupture of rotator cuff of right shoulder / SNOMED CT 1617572238 / Confirmed Smoker / SNOMED CT 616695561 / Confirmed Spondylolisthesis / SNOMED CT 229092881 / Confirmed Urge incontinence of urine / SNOMED CT 868207010 / Confirmed Vascular insufficiency / SNOMED CT 897623969 / Confirmed Physical Examination VS/Measurements Vital Signs [...] on: 10/29/2023 17:57 EST] Delta Lucio MDOhioHealth Dublin Methodist HospitalAnesthesia NotePatient: DISHA DE LA GARZA [...] history): All Problems Arthritis / SNOMED CT 1527639 / Confirmed Bilateral angle-closure glaucoma / SNOMED CT 7159707355 / Confirmed DJD of shoulder / SNOMED CT 820102575 / Confirmed Diabetes / SNOMED CT 584559914 / Confirmed GERD (gastroesophageal reflux disease) / SNOMED CT 131175914 / Confirmed Mixed hyperlipidemia / SNOMED CT 823589403 / Confirmed Obesity / SNOMED CT 3168952387 / Confirmed Recurrent hematuria / SNOMED CT 759543718 / Confirmed Rupture of rotator cuff of right shoulder / SNOMED CT 3413319220 / Confirmed Smoker / SNOMED CT 500076357 / Confirmed Spondylolisthesis / SNOMED CT 398479070 / Confirmed Urge incontinence of urine / SNOMED CT 930370840 / Confirmed Vascular insufficiency / SNOMED CT 894396281 / Confirmed Histories Family History: No family history items have been selected or recorded. Procedure history: Total shoulder replacement (33832661) in the month of 04/2023 at 73 Years. Comments: 10/04/2023 15:26 Skyla Solares RN Left reverse Nerve (7177208). Comments: 10/04/2023 15:27 Skyla Solares RN Left arm- pt unsure of what nerve Abdominal hysterectomy (987587381). Tonsillectomy and adenoidectomy (518191239). Laparoscopic cholecystectomy (25310862). Total knee arthroplasty (8920123802). Comments: 10/04/2023 15:27 Skyla Solares RN bilateral knees Ovarian cyst (101041926). Comments: 10/04/2023 15:29 Skyla Solares RN Removal of Appendectomy (077190208). Social History Electronic Cigarette/Vaping Assessment Electronic Cigarette [...] 29:00) Review / Management Laboratory Results Plan [place] [employer]esthesiologists#(ASA) physical status classification: Class III. Anesthetic Preoperative Plan Anesthesia: General. , Regional Interscalene Block. Anesthetic plan, risks, benefits, and alternatives discussed with the patient and/or family. Patient verbalized understanding. [Electronically Signed on: 10/29/2023 10:04 EST] Delta Lucio MD [Verified on: 10/29/2023 10:04 EST] Delta Lucio MDProMedica Flower HospitalGR Intraoperative Recordon 10-29-2023 MAGR Intraoperative RecordMAGR Intra-Op Record Summary Primary Physician: Finalized Date/Time: 10/29/23 10:39:51 Pt. Name: DISHA DE LA GARZA Pinky Pryor/Sex: 1950 FEMALE Med Rec #: [id number] Physician: Alexis Magana DO Financial #: [id number] Pt. Type: D Room/Bed: [facility] Admit/Disch: 10/29/23 08:16:12 - Institution: [...] Draper, Lora RN Role Performed Anesthesiologist of Mixing Technician Mixing Technician Record Time In 10/29/23 09:52:00 10/29/23 09:52:00 [...] Gluconate Prep By Kameron (more content not included)...[facility] PACU Recordon 72-23-4144CXKE PACU Record MAGR PACU Record Summary Primary Physician: Alexis Magana DO Finalized Date/Time: 10/29/23 13:55:02 Pt. Name: DISHA DE LA GARZA D.O.B./Sex: 1950 FEMALE Med Rec #: [id number] Physician: Alexis Magana DO Financial #: [id number] Pt. Type: D Room/Bed: 227/1 Admit/Disch: 10/29/23 08:16:12 - Institution: PACU Case Times MAGR Entry 1 In PACU I 10/29/23 12:51:00 Discharge from PACU 10/29/23 13:45:00 I Last Modified By: Darshana Menjivar RN 10/29/23 13:55:01 Finalized By: Darshana Menjivar RN Document Signatures Signed By: Darshana Menjivar RN 10/29/23 13:55NoOhioHealth [facility] Hospital Preoperative Recordon 27-64-7678BQEG Preoperative RecordAVENIR BEHAV[facility] Pre-Op Record Summary Primary Physician: Alexis Magana DO Finalized Date/Time: 10/29/23 10:41:55 Pt. Name: DISHA DE LA GARZA D.O.B./Sex: 1950 FEMALE Med Rec #: [id number] Physician: Alexis Magana DO Financial #: [id number] Pt. Type: D Room/Bed: 227/1 Admit/Disch: 10/29/23 [...] Signed By: Skyla Garcia RN 10/29/23 10:41[facility] HospitalNutrition Noteon 10-29-2023 Nutrition NotePt admitted for scheduled Rt shoulder surgery. Diet advanced to Regular. Pre-op wts/ labs reviewed.10/29 BS 93. Pt with DM, no recent hgbA1C on file. No chewing/swallowing problems identified. Other than age greater than 65y and surgery, Pt appears at low nutrition risk. Diet adjusted to 1800CD for consistent CHO intake.[facility] HospitalOperative Report - Surgeon/Physicianon 29-95-4698Xfyottxaf Report - Surgeon/PhysicianPreoperative diagnosis: Rotator cuff tear [...] blood loss: 250 Complications: No complication Findings: Fzoy-vi-cfbx and deficient rotator cuff Procedure summary: Patient [...] [Verified on: 10/29/2023 12:58 EST] Alexis Magana [facility] CenterPOCT Glucose Levelon 84-33-2419Vgsnjta [Mass/Vol]112 mg/dONjmaor76-790Qlehbind48 Foster StreetComment on above:Performed By: #### [id number] #### [facility] (DEFAULT) [address] [place] [address]Egiyzwd [Mass/Vol]93 mg/wEHqukux81-114Gvnjvegt[address] Comment on above:Performed By: #### [id number] ####[facility] (DEFAULT)[address] [place] [address] 42040QJ Shoulder 1 View Righton 25-21-2711YG Shoulder 1 View RightEXAM: XR Shoulder 1 [...] Fong MD 10/29/23 4:00 pm Technologist: RAVEN JUNGHolzer Health SystemComment on above:Order Comment: default status post shoulder replacementPatient Handouton 45-24-0277Xjsdmkg HandoutDRKevin MAGANA'Romina POST OPERATIVE SHOULDER INSTRUCTIONS: SURGEON'S [...] or concerns, please call the office at [phone]. 7. Follow up as scheduled.[facility] HospitalProess Note - Nurseon 75-29-4930Hkcegswj Note - NursePre-op call done, instructed to arrive @ 0830 on 10-29-23, NPO after midnight-verbalized understanding. [Electronically Signed on: 10/26/2023 10:21 EST] Jeanna Mccain RN [Verified on: 10/26/2023 10:21 EST] Jeanna Mccain RNNormalLancaster Municipal Hospital HospitalCoding Summaryon 64-30-2225Dfdwvk Summary HTMLBase 64 JjwdbzvsGWc0dYy+PGhlYWQ+DX8NOLBdS64srJNymQ2mR3UCCVuHUgenFCEIAWrYJeMkrgKgVG5cmGUa ZXJu [file] IGN (more content not included)...[facility] Urineon 10-06-2023 UrineUrine Culture ordered as a result of parameters set on specific urine dip and urine microsopic results. Mixed skin, or urogenital eduard. Clinically insignificantOhioHealth Dublin Methodist Hospital Comment on above:Performed By: #### [id number], [id number], [id number] ####[facility] (DEFAULT)[address] [place] [address] 07339U MRSA Screenon 10-05-2023 MRSA ScreenNegativeOhioHealth Dublin Methodist HospitalComment on above:Performed By: #### [id number] ####[facility] (DEFAULT)[address] [place] [address] 06627Zkbrljqx Orderson 76-07-0255Emuamena Orders [id number]#1.00OTGTIFFOhioHealth Dublin Methodist HospitalUA Advdk2dy 67-81-8234FJ Bacteria1+[facility] HospitalComment on above:Order Comment: Urinalysis Microscopic order added on by [employer] Expert Rules system. Performed By: #### [id number], [id number], [id number] ####[facility] (DEFAULT)[address] [place] [address] 58676IK MucousTraceOhioHealth Dublin Methodist HospitalComment on above:Order Comment: Urinalysis Microscopic order added on by [employer] Expert Rules system.Performed By: #### [id number], [id number], [id number] ####[facility] (DEFAULT)[address] [place], [place] [address]UA RBC3-5 NormalFayette County Memorial HospitalComment on above:Order Comment: Urinalysis Microscopic order added on by [employer] Expert Rules system.Performed By: #### 4122856, [id number], [id number] ####[facility] (DEFAULT)[address] [place], [place] [address]UA Renal EpiFewReg[facility] Hospital [facility] HospitalComment on above:Order Comment: Urinalysis Microscopic order added on by [employer] Expert Rules system. Performed By: #### 1126675, [id number], [id number] ####[facility] (DEFAULT)[address] [place], [place] [address]UA Squam EpiFewRegency Hospital Cleveland East HospitalComment on above:Order Comment: Urinalysis Microscopic order added on by [employer] Expert Rules system.Performed By: #### [id number], [id number], [id number] ####[facility] (DEFAULT)[address] [place], [place] [address]UA WBC5-10 [facility] HospitalComment on above:Order Comment: Urinalysis Microscopic order added on by [employer] Expert Rules system.Performed By: #### [id number], [id number], [id number] ####[facility] (DEFAULT)[address] [place], [place] [address]UA w Culture if Ind Standardon 01-28-9978Lbxberhqae UA [facility] HospitalComment on above:Performed By: #### [id number], [id number], [id number] ####[facility] (DEFAULT)[address] [place] [address] Color (U)YellowNoSouthern Ohio Medical CenterComment on above:Performed By: #### [id number], [id number], [id number] ####[facility] (DEFAULT)[address] [place], [place] [address]Culture?IndicatedInvalid Interpretation CodeLancaster Municipal Hospital HospitalComment on above:Result Comment: Result created by rule GL_MAGR_ADD_UA_CULT Result created by rule GL_MAGR_ADD_UA_CULT Result created by rule GL_MAGR_ADD_UA_CULT1 Result created by rule GL_MAGR_ADD_UA_CULTPerformed By: #### [id number], [id number], [id number] ####[facility] (DEFAULT)[address] [place] [address] 21280Cuosets (U) [Mass/Vol]NegativeNormalLancaster Municipal Hospital HospitalComment on above:Performed By: #### [id number], [id number], [id number] ####[facility] (DEFAULT)[address] [place] [address] 05177Nhdxwzi Ql (U)NegativeNormMartins Ferry Hospital HospitalComment on above:Performed By: #### [id number], [id number], [id number] ####[facility] (DEFAULT)[address] [place] [address] 14085Yqmpd?IndicatedInvalid Interpretation [facility] Comment on above:Result Comment: Result created by rule GL_MAGR_ADD_UA_MICRO Performed By: #### [id number], [id number], [id number] ####[facility] (DEFAULT)[address] [place] [address] 05147UQ BilirubinNegativeNormal [facility] HospitalComment on above:Performed By: #### [id number], [id number], [id number] ####[facility] (DEFAULT)[address] [place] [address] UA BloodTRACEAbnormalNEGATIVELancaster Municipal Hospital HospitalComment on above:Performed By: #### [id number], [id number], [id number] ####[facility] (DEFAULT)[address] [place] [address] 60634OO ClarityCLEARNormalCLEARLancaster Municipal Hospital HospitalComment on above:Performed By: #### [id number], [id number], [id number] ####[facility] (DEFAULT)[address] [place] [address] 58766BQ Leuk EstTRACEAbnormalNEGATIVE [facility] HospitalComment on above:Performed By: #### [id number], [id number], [id number] ####[facility] (DEFAULT)[address] [place] [address] UA NitriteNegativeNormalNEGATIVELancaster Municipal Hospital HospitalComment on above:Performed By: #### [id number], [id number], [id number] ####[facility] (DEFAULT)[address] [place] [address] 25913OD pH6.4Ggiojf3-0Feeymowr HospitalComment on above: Performed By: #### [id number], [id number], [id number] ####[facility] (DEFAULT)[address] [place] [address] 49796DS ProteinNegativeNormalNEGATIVE [facility] HospitalComment on above:Performed By: #### [id number], [id number], [id number] ####[facility] (DEFAULT)[address] [place] [address] 71138 UA Spec Grav1.897Epzyim6.001-1.035[facility] HospitalComment on above:Performed By: #### 9903292, [id number], [id number] ####[facility] (DEFAULT)[address] [place] [address] 24942MW Urobilinogen0.2 mg/dLNormal0.2-1.0[facility] HospitalComment on above:Performed By: #### [id number], [id number], [id number] ####[facility] (DEFAULT)[address] [place] [address] 01444Zwazy SourceClean CatchNormalLancaster Municipal Hospital HospitalComment on above:Performed By: #### [id number], [id number], [id number] ####[facility] (DEFAULT)[address] [place] [address] 31530N6 and C4 COMPLEMENTon 24-50-6511Vbsiabndnp C3, Cgcoc395 mg/dLCritically zgxo13-199Dfn [facility] HospitalComment on above: Performed By: #### BMP #### [facility] [address] [place] [address] Dr. Zeke Guerra C4, Serum41 mg/dLCritically amsn52-92Nhu [facility] on above:Performed By: #### BMP #### [facility] [address] [place] [address] Dr. Zeke Guerra TOTAL (CH50)on 75-76-3618Mbwgesruqs, Total (CH50)>60 Normal>41The [facility] Medical CenterComment on above:Result Comment: Age Male Female 3 [...] of range values.Performed By: #### SEDR #### [facility] [address] [place] [address] Dr. Zeke Austin AUTO DIFFon 46-33-2895LTQO #0.0 103/ulNormal0.0-0.1[facility] Hospitalment on above:Performed By: #### CBC #### [facility] [address] [place] [address] Dr. Zeke GarciaBasophils/100 WBC (Bld)0.6 %Normal0.2-2.0[facility] Comment on above:Performed By: #### CBC #### [facility] [address] [place] [address] Dr. Zeke Thacker #0.1 103/ulNormal0.0-0.7The [facility] on above: Performed By: #### CBC #### [facility] [address] [place] [address] Dr. Zeke Hodgeosinophils/100 WBC (Bld)1.9 %Normal0.9-7.0[facility] Comment on above:Performed By: #### CBC #### [facility] [address] [place] [address] Dr. Zeke Hodgerythrocyte distribution width (RBC) [Ratio]15.4 %Critically high 11.0-15.0The [facility] Medical CenterComment on above:Performed By: #### CBC #### [facility] [address] [place] [address] Dr. Zeke GarciaHematocrit (Bld) [Volume fraction]36.3 %Mwbzbx83.0-48.0The [facility]field Medical CenterComment on above:Performed By: #### CBC #### [facility] [address] [place] [address] Dr. Zeke GarciaHemoglobin (Bld) [Mass/Vol]12.1 g/mCNkbftu62.0-16.0[facility] on above:Performed By: #### CBC #### [facility] [address] [place] [address] Dr. Zeke Mahan #0.02 10e3/ulNormal0.00-0.03The [facility] on above:Performed By: #### CBC #### [facility] [address] [place] [address] Dr. Zeke Mahan %0.3 %Normal0.0-0.5The [facility] CenterCommymichigan medical center on above: Performed By: #### CBC #### [facility] [address] [place] [address] Dr. Zeke BeckH #1.4 103/ulNormal1.2-3.8The [facility] CenterCommymichigan medical center on above:Performed By: #### CBC #### [facility] [address] [place] [address] Dr. Zeke Stallingsmphocytes/100 WBC (Bld)20.4 %Critically low20.5-60.0The [facility] on above:Performed By: #### CBC #### [facility] [address] [place] [address] Dr. Zeke CalderonUAL DIFF REQNONormalThe [facility] Medical CenterComment on above: Performed By: #### CBC #### [facility] [address] [address] [address] Zeke Christensen (RBC) [Entitic mass]29.9 cyGyeexe50.7-34.0The [facility] CenterComment on above:Performed By: #### CBC #### [facility] [address] [place] [address] Dr. Zeke Christensen (RBC) [Mass/Vol]33.3 g/gESdxcpl91.9-35.2The [facility] CenterComment on above:Performed By: #### CBC #### [facility] [address] [place] [address] Dr. Zeke ChristensenV (RBC) [Entitic vol]89.6 nRNhwoiu06.0-99.0The [facility] CenterComment on above:Performed By: #### CBC #### [facility] [address] [place] [address] Dr. Zeke Alaniz #0.5 103/ulNormal0.3-0.8The [facility] CenterComment on above:Performed By: #### CBC #### [facility] [address] [place] [address] Dr. Zeke Cerdaocytes/100 WBC (Bld)7.3 %Normal1.7-12.0The [facility] Comment on above:Performed By: #### CBC #### [facility] [address] [place] [address] Dr. Zeke Dick #4.9 103/ulNormal1.4-6.5The [facility] CenterComment on above:Performed By: #### CBC #### [facility] [address] [place] [address] Dr. Zeke Ernstutrophils/100 WBC (Bld)69.5 %Vpajpc92.0-75.0The [facility] CenterComment on above:Performed By: #### CBC #### [facility] [address] [place] [address] Dr. Zeke Sonlet mean volume (Bld) [Entitic vol]8.6 fLCritically low 9.5-13.5The [facility] Hospitalment on above:Performed By: #### CBC #### [facility] [address] [place] [address] Dr. Zeke GarciaPLT338 103/yyIuprdc904-863Blp [facility] CenterCommymichigan medical center on above: Performed By: #### CBC #### [facility] [address] [place] [address] Dr. Zeke GarciaRBC4.05 106/ulCritically low4.20-5.40The [facility] on above:Performed By: #### CBC #### [facility] [address] [place] [address] Dr. Zeke GarciaWBC7.0 103/ulNormal4.0-11.0[facility] on above: Performed By: #### CBC #### [facility] [address] [place] [address] Dr. Zkee Angeles 16-55-3465EAW1.5 mg/dLCritically high<=1.0The [facility] CenterCommymichigan medical center on above:Performed By: #### BMP #### [facility] [address] [place] [address] Dr. Zeke GarciaPROF 14(COMP METB)on 34-69-1090Ssxaxsh [Mass/Vol]3.0 g/dL Critically low3.4-5.0The [facility] on above:Performed By: #### BMP #### [facility] [address] [place] [address] Dr. Zeke GarciaAlbumin/Globulin [Mass ratio]0.7 {ratio}NormalThe [facility] CenterCommymichigan medical center on above:Performed By: #### BMP #### [facility] [address] [place] [address] Dr. Zeke Galo [Catalytic activity/Vol]107 U/DNdzyfr01-351Pqz [facility] CenterCommymichigan medical center on above:Performed By: #### BMP #### [facility] [address] [place] [address] Dr. Zeke Dorantes [Catalytic activity/Vol]17 U/ZCkoyvr77-84Bkb Kashmir HospitalComment on above:Performed By: #### BMP #### [facility] [address] [address] [address] Zeke Marin gap [Moles/Vol]12.2 mmol/LNormalThe [facility] Comment on above:Performed By: #### BMP #### [facility] [address] [address] [address] Zeke GarciaAST [Catalytic activity/Vol]16 U/AJqjnju94-43Fek [facility] CenterComment on above:Performed By: #### BMP #### [facility] [address] [address] [address] Zeke GarciaBilirubin [Mass/Vol]0.4 mg/dLNormal0.2-1.0The [facility] Comment on above:Performed By: #### BMP #### [facility] [address] [place] [address] Dr. Zeke GarciaCalcium [Mass/Vol]9.7 mg/dLNormal8.5-10.1The [facility] Comment on above:Performed By: #### BMP #### [facility] [address] [address] [address] Zeke GarciaChloride [Moles/Vol]100 mmol/CXyoqqn48-269Yel [facility] Comment on above:Performed By: #### BMP #### [facility] [address] [address] [address] Zeke GarciaCO2 [Moles/Vol]28.6 mmol/MFqovba64.0-32.0The [facility] Comment on above:Performed By: #### BMP #### [facility] [address] [address] [address] Zeke GarciaCreatinine [Mass/Vol]0.63 mg/dLNormal0.55-1.02The [facility] CenterComment on above:Performed By: #### BMP #### [facility] [address] [address] [address] Alanis ChangEGFR-AF HONDURAN>60Normal>=60The [facility] Medical CenterComment on above:Performed By: #### BMP #### [facility] [address] [address] [address] Zeke HodgeGFR-NON AF HONDURAN>60Normal>=60The [facility] CenterComment on above:Performed By: #### BMP #### [facility] [address] [address] [address] Zeke GarciaGlobulin (S) [Mass/Vol]4.3 g/dLNormKettering Health Main CampusComment on above:Performed By: #### BMP #### [facility] [address] [address] [address] Zeke GarciaGlucose [Mass/Vol]126 mg/dLCritically mzic29-787Fmd [facility] CenterComment on above:Performed By: #### BMP #### [facility] [address] [place] [address] Dr. Zeke GarciaPotassium [Moles/Vol]3.8 mmol/LNormal3.5-5.1The [facility] Comment on above:Performed By: #### BMP #### [facility] [address] [place] [address] Dr. Zeke GarciaProtein [Mass/Vol]7.3 g/dLNormal6.4-8.2The [facility] Comment on above:Performed By: #### BMP #### [facility] [address] [place] [address] Dr. Zeke GarciaSodium [Moles/Vol]137 mmol/MLnnwqk356-791Uhz [facility] Comment on above:Performed By: #### BMP #### [facility] [address] [place] [address] Dr. Zeke GarciaUrea nitrogen [Mass/Vol]11.0 mg/dLNormal7.0-18.0The [facility] CenterComment on above:Performed By: #### BMP #### [facility] [address] [place] [address] Dr. Zeke Cartwright nitrogen/Creatinine [Mass ratio]17.5 mg/mgNormalThSumma Health Akron CampusComment on above:Performed By: #### BMP #### [facility] [address] [address] [address] Zeke Salmeron RATE WESTERGRENon 72-71-1239IVN RATE66 mm/hrCritically high <=30[facility] HospitalComment on above:Performed By: #### SEDR #### [facility] [address] [address] [address] Zeke Aguiar RANDOM W/MICROSCOPICon 14-27-5457MXIVNGLUHNSH SEENNormalNONE SEENOhiohealth Van Wert HospitalComment on above:Performed By: #### SEDR #### [facility] [address] [address] [address] Zeke GarciaBilirubin Ql (U)NegativeNormalNEGATIVEOhiohealth Van Wert Hospital Comment on above:Performed By: #### SEDR #### [facility] [address] [place] [address] Dr. Zeke Lin SEENNormalNONE SEENOhiohealth Van Wert HospitalComment on above:Performed By: #### SEDR #### [facility] [address] [address] [address] Zeke Leivaarity (U)CLEARNormalCLEARThe [facility] Medical CenterComment on above: Performed By: #### SEDR #### [facility] [address] [address] [address] Zeke Gamez (U)LT. YELLOWNormalYELLOWOhiohealth Van Wert HospitalComment on above:Performed By: #### SEDR #### [facility] [address] [address] [address] Zeke GarciaCrystals LM Nom (Urine sed)NONE SEENNormalNONE SEENOhiohealth Van Wert HospitalComment on above:Performed By: #### SEDR #### [facility] [address] [address] [address] Alanis ChangEpithelial cells LM Ql (Urine sed)FEWAbnormalNONE SEEN /RAREThe [facility] CenterComment on above:Performed By: #### SEDR #### [facility] [address] [address] [address] Zeke Chowdhuryose Ql (U)NegativeNormalNEGATIVEOhiohealth Van Wert HospitalComment on above:Performed By: #### SEDR #### [facility] [address] [place] [address] Dr. Zeke GarciaHemoglobin Ql (U)SMALLAbnormalNEGCleveland Clinic Mercy Hospital Comment on above:Performed By: #### SEDR #### [facility] [address] [address] [address] Zeke GarciaKetones Ql (U)NegativeNormalNEGATIVEOhiohealth Van Wert HospitalComment on above:Performed By: #### SEDR #### [facility] [address] [place] [address] Dr. eZke GarciaLEUKOCYTESNegativeNormalNEGATIVEOhiohealth Van Wert HospitalComment on above:Performed By: #### SEDR #### [facility] [address] [place] [address] Dr. Zeke GarciaMUCOUSNONE SEENNormalNONE SEENOhiohealth Van Wert HospitalComment on above:Performed By: #### SEDR #### [facility] [address] [place] [address] Dr. Zeke Currytrite Ql (U)NegativeNormalNEGCleveland Clinic Mercy HospitalComment on above:Performed By: #### SEDR #### [facility] [address] [place] [address] Dr. Zeke GarciapH (U)5.0 [pH]Normal5-9The [facility] CenterComment on above: Performed By: #### SEDR #### [facility] [address] [place] [address] Dr. Zeke GarciaRptlpPLJ6-2Qxbazp1-9Lnu Bellevue HospitalComment on above:Performed By: #### SEDR #### [facility] [address] [place] [address] Dr. Zeke GarciaSPEC GRAVITY<=1.012Tzieyhve5.005-<=1.025The [facility] Comment on above:Performed By: #### SEDR #### [facility] [address] [place] [address] Dr. Yilan ChangUA PROTEINNegativeNormalNEGATIVE/ TRACEThe [facility] Comment on above:Performed By: #### SEDR #### [facility] [address] [place] [address] Dr. Zeke Pachecobilkalpana Qn (U)0.2 {Lin'U}/dLNormal0.2 - 1.0Ohio[facility] Wert HospitalComment on above:Performed By: #### SEDR #### [facility] [address] [place] [address] Dr. Zeke GarciaWBCNONKy SEENNormalNONE SEENThe [facility] CenterComment on above: Performed By: #### SEDR #### [facility] [address] [place] [address] Dr. Zeke ReyesC AUTO DIFFon 01-94-9661ZFGL #0.0 103/ulNormal0.0-0.1The [facility] CenterComment on above:Performed By: #### CBC #### [facility] [address] [place] [address] Dr. Zeke GarciaBasophils/100 WBC (Bld)0.4 %Normal0.2-2.0[facility] Comment on above:Performed By: #### CBC #### [facility] [address] [place] [address] Dr. Zeke Thacker #0.1 103/ulNormal0.0-0.7The [facility] CenterComment on above: Performed By: #### CBC #### [facility] [address] [place] [address] Dr. Zeke Hodgeosinophils/100 WBC (Bld)0.9 %Normal0.9-7.0The [facility] Comment on above:Performed By: #### CBC #### [facility] [address] [place] [address] Dr. Zeke Hodgerythrocyte distribution width (RBC) [Ratio]15.5 %Critically high 11.0-15.0The [facility] Medical CenterComment on above:Performed By: #### CBC #### [facility] [address] [address] [address] Zeke Tovaratocrit (Bld) [Volume fraction]35.8 %Critically low36.0-48.0 [facility] on above:Performed By: #### CBC #### [facility] [address] [place] [address] Dr. Zeke GarciaHemoglobin (Bld) [Mass/Vol]11.9 g/dLCritically low12.0-16.0The [facility] CenterCommymichigan medical center on above:Performed By: #### CBC #### [facility] [address] [place] [address] Dr. Zeke GarciaIG #0.01 10e3/ulNormal0.00-0.03[facility] on above:Performed By: #### CBC #### [facility] [address] [place] [address] Dr. Zeke Mahan %0.1 %Normal0.0-0.5The [facility] CenterCommymichigan medical center on above: Performed By: #### CBC #### [facility] [address] [place] [address] Dr. Zeke Scruggs #1.5 103/ulNormal1.2-3.8The [facility] CenterCommymichigan medical center on above:Performed By: #### CBC #### [facility] [address] [place] [address] Dr. Zeke Stallingsmphocytes/100 WBC (Bld)20.5 %Midkdb02.5-60.0[facility] on above:Performed By: #### CBC #### [facility] [address] [place] [address] Dr. Zeke GarciaMANUAL DIFF REQNONormalThe [facility] CenterComment on above: Performed By: #### CBC #### [facility] [address] [place] [address] Dr. Zeke Mosqueda (RBC) [Entitic mass]30.2 znSabrmn78.7-34.0The [facility] CenterComment on above:Performed By: #### CBC #### [facility] [address] [address] [address] Zeke ChristensenHC (RBC) [Mass/Vol]33.2 g/oWEdzoar91.9-35.2The [facility] CenterComment on above:Performed By: #### CBC #### [facility] [address] [place] [address] Dr. Zeke ChristensenV (RBC) [Entitic vol]90.9 oISzlall43.0-99.0The [facility] CenterComment on above:Performed By: #### CBC #### [facility] [address] [place] [address] Dr. Zeke Alaniz #0.3 103/ulNormal0.3-0.8The [facility] CenterComment on above:Performed By: #### CBC #### [facility] [address] [place] [address] Dr. Zeke Cerdaocytes/100 WBC (Bld)3.7 %Normal1.7-12.0The [facility] Comment on above:Performed By: #### CBC #### [facility] [address] [place] [address] Dr. Zeke Dick #5.6 103/ulNormal1.4-6.5The [facility] CenterComment on above:Performed By: #### CBC #### [facility] [address] [place] [address] Dr. Zeke Ernstutrophils/100 WBC (Bld)74.4 %Zkwnyl73.0-75.0The [facility] CenterComment on above:Performed By: #### CBC #### [facility] [address] [place] [address] Dr. Zeke Sonlet mean volume (Bld) [Entitic vol]8.4 fLCritically low 9.5-13.5The [facility] CenterComment on above:Performed By: #### CBC #### [facility] [address] [place] [address] Dr. Zeke GarciaPLT328 103/hwKdnjcz041-197Txr [facility] CenterComment on above: Performed By: #### CBC #### [facility] [address] [place] [address] Dr. Zeke GarciaRBC3.94 106/ulCritically low4.20-5.40[facility] on above:Performed By: #### CBC #### [facility] [address] [place] [address] Dr. Zeke GarciaWBC7.5 103/ulNormal4.0-11.0The [facility] CenterComment on above: Performed By: #### CBC #### [facility] [address] [place] [address] Dr. Zeke Olivas-DIMERon 41-34-7774Q-DIMER2.47 mg/L FEUCritically high<=0.59The [facility] CenterCommymichigan medical center on above:Performed By: #### DDIM #### [facility] [address] [place] [address] Dr. Zeke CanelaDIMER COMMENTSSEE [facility] on above:Result Comment: Increases in D-Dimer [...] generalized hospitalization. Performed By: #### DDIM #### [facility] [address] [place] [address] Dr. Zeek GarciaPROF CHEM 8 (BAS METB)on 85-16-0221Gfjmw gap [Moles/Vol]11.7 mmol/LNormalThe [facility] on above:Performed By: #### BMP #### [facility] [address] [place] [address] Dr. Zeke GarciaCalcium [Mass/Vol]9.3 mg/dLNormal8.5-10.1[facility] Comment on above:Performed By: #### BMP #### [facility] [address] [address] [address] Zeke GarciaChloride [Moles/Vol]100 mmol/CTnlbbl68-099Akg [facility] Comment on above:Performed By: #### BMP #### [facility] [address] [place] [address] Dr. Zeke GarciaCO2 [Moles/Vol]29.1 mmol/MZgeqbb32.0-32.0The [facility] Comment on above:Performed By: #### BMP #### [facility] [address] [place] [address] Dr. Zeke GarciaCreatinine [Mass/Vol]0.58 mg/dLNormal0.55-1.02The [facility] CenterComment on above:Performed By: #### BMP #### [facility] [address] [place] [address] Dr. Alanis ChangEGFR-AF HONDURAN>60Normal>=60The [facility] CenterComment on above:Performed By: #### BMP #### [facility] [address] [place] [address] Dr. Zeke HodgeGFR-NON AF HONDURAN>60Normal>=60The [facility] CenterComment on above:Performed By: #### BMP #### [facility] [address] [place] [address] Dr. Zeke GarciaGlucose [Mass/Vol]128 mg/dLCritically zhxz91-054Ztq [facility] CenterComment on above:Performed By: #### BMP #### [facility] [address] [place] [address] Dr. Zeke GarciaPotassium [Moles/Vol]3.8 mmol/LNormal3.5-5.1The [facility] Comment on above:Performed By: #### BMP #### [facility] [address] [place] [address] Dr. Zeke GarciaSodium [Moles/Vol]137 mmol/AMhqmzk748-170Lkz [facility] Comment on above:Performed By: #### BMP #### [facility] [address] [place] [address] Dr. Yilan ChangUrea nitrogen [Mass/Vol]11.0 mg/dLNormal7.0-18.0[facility] HospitalComment on above:Performed By: #### BMP #### [facility] [address] [place], [place] [address] Dr. Zeke Cartwright nitrogen/Creatinine [Mass ratio]19.0 mg/mgNoToledo HospitalComment on above:Performed By: #### BMP #### [facility] [address] [place], [place] [address] Dr. Zeke Ball AROLDO DOP LEG RTon [id number] AROLDO DOP LEG RTEXAMINATION: US AROLDO DOP LEG RT HISTORY: Pain ; right foot swelling COMPARISON: No relevant comparison available. FINDINGS: REGION: Right lower extremity THROMBI: None. COMPRESSIBILITY: Normal compressibility. FLOW: Normal waveform and antegrade flow between 5 and 20 cm/s. OTHER: None. IMPRESSION: 1. No deep vein thrombus within right lower extremity. Electronically authenticated by: THOMAS DEMARCO Date: 2022-08-11 10:21[facility] HospitalXR FOOT RT MIN 3 VIEWSon [id number] FOOT RT MIN 3 VIEWSEXAM: Right foot [...] Electronically authenticated by: PRIYA SCHNEIDER Date: 2022-08-11 09:33[facility] HospitalGlucose Glucometer (BldC) [Mass/Vol]Ordered By: Willie Garcia on 45-14-0044Wtnyqsi [Mass/Vol]92 mg/dLMagruder Memorial HospitalComment on above:Random Glucose Reference Range is dependent on time and content of last meal. Glucose of more than 200 mg/dL in a nonstressed, ambulatory subject supports the diagnosis of Diabetes Mellitus.COVID-19 Positive/NegativeOrdered By: Willie Garcia on 79-87-2978YYLN-CoV-2 (COVID-19) N gene DAVID+probe Ql (Resp) NegativeNegativeMagruder Memorial HospitalComment on above:Testing for SARS-CoV-2 by RT-PCRThis test was developed and its performance characteristics determined by [employer] ([employer]) and validated at the [facility]. This test has not been FDA [...] (Bld) [#/Vol] Ordered By: Willie Garcia on 87-75-3783Vsitqpwvx (Bld) [#/Vol]0.0 10*3/uL0.0-0.2 [facility] HospitalBasophils/100 WBC Auto (Bld)Ordered By: Willie Garcia on 49-19-6861Wwlvhpeoq/100 WBC (Bld)0.3 %.[facility] HospitalCreatinine and Glomerular filtration rate.predicted panel (S/P/Bld)Ordered By: Willie Garcia on 13-75-8555Wkplqyuksk [Mass/Vol]0.69 mg/dL0.44-1.03[facility] HospitalEosinophils Auto (Bld) [#/Vol]Ordered By: Willie Garcia on 83-19-3540Eamiqqkhnzj (Bld) [#/Vol]0.0 10*3/uL0.0-0.45[facility] HospitalEosinophils/100 WBC Auto (Bld)Ordered By: Willie Garcia on 07-12-2022 Eosinophils/100 WBC (Bld)0.1 %.[facility] HospitalErythrocyte distribution width Auto (RBC) [Ratio]Ordered By: Willie Garcia on 07-12-2022 Erythrocyte distribution width (RBC) [Ratio]18.9 %11.9-15.3FPeoples HospitalEstimated glomerular filtration rate (GFR) non- Ordered By: Willie Garcia on 51-45-3336BCD/1.73 sq M.predicted among non-blacks MDRD (S/P/Bld) [Vol rate/Area]> 60 mL/MinMagruder Memorial Hospital Hematocrit Auto (Bld) [Volume fraction]Ordered By: Willie Garcai on 07-12-2022 Hematocrit (Bld) [Volume fraction]37.5 %34.0-46.4FPeoples HospitalHemoglobin [Mass/volume] in BloodOrdered By: Willie Garcia on 07-12-2022 Hemoglobin (Bld) [Mass/Vol]12.2 g/dL11.8-15.4FPeoples Hospital Laboratory - Hematology and Cell countsOrdered By: Willie Garcia on 07-12-2022 Nucleated RBC/100 WBC (Bld) [Ratio]0.1 %0-0.5FPeoples Hospital Leukocytes [#/volume] in Blood by Automated countOrdered By: Willie Garcia on 19-69-3939ZQU (Bld) [#/Vol]8.2 10*3/uL4.5-11.0[facility] Lymphocytes Auto (Bld) [#/Vol]Ordered By: Willie Garcia on 39-07-1469Wmqcbozrvjh (Bld) [#/Vol]0.6 10*3/uL1.00-4.8[facility] HospitalLymphocytes/100 WBC Auto (Bld)Ordered By: Willie Garcia on 19-92-3558Kkiqpryfsfi/100 WBC (Bld)7.4 %.[facility] Auto (RBC) [Entitic mass]Ordered By: Willie Garcia on 80-24-4099ZGI (RBC) [Entitic mass]30.5 pg24.7-34.3FPomerene HospitalHC Auto (RBC) [Mass/Vol]Ordered By: Willie Garcia on 66-29-7957DPBB (RBC) [Mass/Vol]32.5 g/dL32.0-35.0[facility] HospitalMCV Auto (RBC) [Entitic vol]Ordered By: Willie Garcia on 59-62-8387WNL (RBC) [Entitic vol] 94.1 dT40-030OezqdfgsvMagruder Memorial HospitalMonocytes Auto (Bld) [#/Vol] Ordered By: Willie Garcia on 64-73-8395Tjthcrczr (Bld) [#/Vol]0.1 10*3/uL0.0-0.8 [facility] HospitalMonocytes/100 WBC Auto (Bld)Ordered By: Willie Garcia on 13-35-3483Sodkamkwj/100 WBC (Bld)1.1 %.[facility] Memorial HospitalNeutrophils Auto (Bld) [#/Vol]Ordered By: Willie Garcia on 07-12-2022 Neutrophils (Bld) [#/Vol]7.4 10*3/uL1.8-7.7FPeoples Hospital Neutrophils/100 WBC Auto (Bld)Ordered By: Willie Garcia on 07-12-2022 Neutrophils/100 WBC (Bld)91.1 %.[facility] HospitalNo Panel InformationOrdered By: Willie Garcia on 34-38-4658Uxfwasenn GFR ()> 60 mL/MinMagruder Memorial HospitalComment on above:GFR estimated reference range: According to KDOQI guidelines, <60 ml/min/1.73m2 is sufficient todiagnose a patient with chronic kidney disease.Pharmacy Creatinine Clearance (ChemN/[facility] HospitalPlatelet mean volume Auto (Bld) [Entitic vol]Ordered By: Willie Garcia on 06-96-0434Endxdogm mean volume (Bld) [Entitic vol]6.8 fL6.3-10.7FPeoples HospitalPlatelets Auto (Bld) [#/Vol]Ordered By: Willie Garcia on 98-39-0141Cyzfumvra (Bld) [#/Vol]283 10*3/uL 150-450Mag[facility]uder Memorial HospitalRBC Auto (Bld) [#/Vol]Ordered By: Willie Garcia on 57-88-4619DJX (Bld) [#/Vol]3.99 10*6/uL3.60-5.00[facility] - Columbuserum or plasma anion gap determinationOrdered By: Willie Garcia on 83-93-4782Jxrlw gap [Moles/Vol]11.3 mmol/L6.0-15.0[facility] - Columbuserum or plasma calcium measurement (mass/volume)Ordered By: Willie Garcia on 08-46-2451Kujmtsm [Mass/Vol]9.4 mg/dL8.2-10.2FPeoples Hospital Serum or plasma chloride measurement (moles/volume)Ordered By: Willie Garcia on 84-40-0396Nuijwmdj [Moles/Vol]102 mmol/R96-893VoaqmphyfMagruder Memorial Hospital Serum or plasma glucose measurement (mass/volume)Ordered By: Willie Garcia on 86-02-4694Hjrutim [Mass/Vol]149 mg/nG51-963RibepyzblMagruder Memorial Hospital Comment on above:ADA recommended reference rangeRandom Glucose Reference Range is dependent on time and content of last meal. Glucose of more than 200 mg/dL in a nonstressed, ambulatory subject supports the diagnosisof Diabetes Mellitus. Serum or plasma potassium measurement (moles/volume)Ordered By: Willie Garcia on 91-23-2225Pubyciqqd [Moles/Vol]4.2 mmol/L3.5-5.1FMercy Health St. Charles Hospitalerum or plasma sodium measurement (moles/volume)Ordered By: Willie Garcia on 14-09-9974Imgmvi [Moles/Vol]135 mmol/Z120-405EtgojhydnMagruder Memorial Hospital Serum or plasma total carbon dioxide measurement (moles/volume)Ordered By: Willie Garcia on 69-92-0010PT5 [Moles/Vol]25.9 mmol/L22.0-30.0[facility] - Columbuserum or plasma urea nitrogen measurement (mass/volume)Ordered By: Willie Garcia on 97-69-6372Pzzz nitrogen [Mass/Vol]14 mg/dL9-23Magruder Memorial HospitalC3 and C4 COMPLEMENTon 99-05-8331Mignbyxhbw C3, Snbrp657 mg/dL Kqxium25-408MusOhiohealth Van Wert HospitalComment on above:Performed By: #### BMP #### [facility] [address] [place] [address] Dr. Zeke Guerra C4, Serum29 mg/wYUubhly39-82Uwf [facility] Comment on above:Performed By: #### BMP #### [facility] [address] [place] [address] Dr. Zeke Guerra TOTAL (CH50)on 29-34-9339Oksziukdln, Total (CH50)>60 Normal>41The [facility] CenterComment on above:Result Comment: Age Male Female 3 [...] of range values.Performed By: #### SEDR #### [facility] [address] [place] [address] Dr. Zeke Austin AUTO DIFFon 68-65-8923LDGN #0.1 103/ulNormal0.0-0.1Ohio[facility] Van Wert HospitalComment on above:Performed By: #### SEDR #### [facility] [address] [place] [address] Dr. Zeke GarciaBasophils/100 WBC (Bld)0.6 %Normal0.2-2.0[facility] Comment on above:Performed By: #### SEDR #### [facility] [address] [place] [address] Dr. Zeke Thacker #0.2 103/ulNormal0.0-0.7The [facility] CenterComment on above: Performed By: #### SEDR #### [facility] [address] [place] [address] Dr. Zeke Hodgeosinophils/100 WBC (Bld)2.6 %Normal0.9-7.0The [facility] Comment on above:Performed By: #### SEDR #### [facility] [address] [place] [address] Dr. Zeke Hodgerythrocyte distribution width (RBC) [Ratio]13.2 %Njbjbs00.0-15.0 The [facility] CenterComment on above:Performed By: #### SEDR #### [facility] [address] [place] [address] Dr. Zeke GarciaHematocrit (Bld) [Volume fraction]38.9 %Cihrlg68.0-48.0The [facility] CenterComment on above:Performed By: #### SEDR #### [facility] [address] [place] [address] Dr. Zeke GarciaHemoglobin (Bld) [Mass/Vol]12.9 g/nVVvjrnw29.0-16.0The [facility] CenterComment on above:Performed By: #### SEDR #### [facility] [address] [place] [address] Dr. Zeke Mahan #0.02 10e3/ulNormal0.00-0.03The [facility] CenterComment on above:Performed By: #### SEDR #### [facility] [address] [place] [address] Dr. Zeke Mahan %0.3 %Normal0.0-0.5The [facility] CenterComment on above: Performed By: #### SEDR #### [facility] [address] [place] [address] Dr. Zeke StallingsMPH #1.5 103/ulNormal1.2-3.8The [facility] CenterComment on above:Performed By: #### SEDR #### [facility] [address] [place] [address] Dr. Zeke Stallingsmphocytes/100 WBC (Bld)19.3 %Critically low20.5-60.0The [facility] CenterCommymichigan medical center on above:Performed By: #### SEDR #### [facility] [address] [place] [address] Dr. Zeke CalderonUAL DIFF REQNONormalThe [facility] CenterComment on above: Performed By: #### SEDR #### [facility] [address] [address] [address] Zeke ChristensenH (RBC) [Entitic mass]32.7 raMetwvp73.7-34.0The [facility] CenterComment on above:Performed By: #### SEDR #### [facility] [address] [place] [address] Dr. Zeke Christensen (RBC) [Mass/Vol]33.2 g/gJEhizms40.9-35.2The [facility] HospitalComment on above:Performed By: #### SEDR #### [facility] [address] [place] [address] Dr. Zeke ChristensenV (RBC) [Entitic vol]98.5 dTGcppdg40.0-99.0The [facility] CenterComment on above:Performed By: #### SEDR #### [facility] [address] [place] [address] Dr. Zeke Alaniz #0.5 103/ulNormal0.3-0.8The [facility] CenterComment on above:Performed By: #### SEDR #### [facility] [address] [place] [address] Dr. Zeke Cerdaocytes/100 WBC (Bld)5.8 %Normal1.7-12.0The [facility] Comment on above:Performed By: #### SEDR #### [facility] [address] [place] [address] Dr. Zeke ErnstUT #5.7 103/ulNormal1.4-6.5The [facility] CenterComment on above:Performed By: #### SEDR #### [facility] [address] [place] [address] Dr. Zeke Ernstutrophils/100 WBC (Bld)71.4 %Audbzn82.0-75.0The [facility] CenterComment on above:Performed By: #### SEDR #### [facility] [address] [place] [address] Dr. Zeke Sonlet mean volume (Bld) [Entitic vol]8.7 fLCritically low 9.5-13.5The [facility] CenterComment on above:Performed By: #### SEDR #### [facility] [address] [place] [address] Dr. Zeke GarciaPLT285 103/vrMetctv262-882Dhx [facility] CenterComment on above: Performed By: #### SEDR #### [facility] [address] [place] [address] Dr. Zeke GarciaRBC3.95 106/ulCritically low4.20-5.40The [facility] CenterComment on above:Performed By: #### SEDR #### [facility] [address] [place] [address] Dr. Zeke GarciaWBC8.0 103/ulNormal4.0-11.0The [facility] CenterComment on above: Performed By: #### SEDR #### [facility] [address] [place] [address] Dr. Zeke Angeles 89-96-6568FFT [Mass/Vol]mg/LNormal<=1.0The [facility] CenterComment on above:Performed By: #### BMP #### [facility] [address] [place] [address] Dr. Zeke Kent 14(COMP METB)on 84-01-0349Mwguksn [Mass/Vol]3.7 g/dLNormal 3.4-5.0The [facility] CenterComment on above:Performed By: #### BMP #### [facility] [address] [place] [address] Dr. Zeke GarciaAlbumin/Globulin [Mass ratio]1.1 {ratio}NormalThe [facility] CenterComment on above:Performed By: #### BMP #### [facility] [address] [place] [address] Dr. Zeke Galo [Catalytic activity/Vol]121 U/LCritically ftow52-237Bkx [facility] CenterComment on above:Performed By: #### BMP #### [facility] [address] [place] [address] Dr. Zeke Dorantes [Catalytic activity/Vol]26 U/PKqfzib74-34Pvl [facility] CenterComment on above:Performed By: #### BMP #### [facility] [address] [address] [address] Zeke Cintronon gap [Moles/Vol]10.1 mmol/LNormalOhiohealth Van Wert Hospital Comment on above:Performed By: #### BMP #### [facility] [address] [address] [address] Zeke GarciaAST [Catalytic activity/Vol]19 U/PTjrmnz97-20Muf [facility] CenterComment on above:Performed By: #### BMP #### [facility] [address] [address] [address] Zeke GarciaBilirubin [Mass/Vol]0.6 mg/dLNormal0.2-1.0[facility] Comment on above:Performed By: #### BMP #### [facility] [address] [address] [address] Zeke GarciaCalcium [Mass/Vol]9.5 mg/dLNormal8.5-10.1[facility] Comment on above:Performed By: #### BMP #### [facility] [address] [address] [address] Zeke GarciaChloride [Moles/Vol]103 mmol/KSrwgrz34-796MaiOhiohealth Van Wert Hospital Comment on above:Performed By: #### BMP #### [facility] [address] [address] [address] Zeke GarciaCO2 [Moles/Vol]28.9 mmol/TJyapaq48.0-32.0[facility] Comment on above:Performed By: #### BMP #### [facility] [address] [address] [address] Zeke GarciaCreatinine [Mass/Vol]0.58 mg/dLNormal0.55-1.02The [facility] CenterComment on above:Performed By: #### BMP #### [facility] [address] [address] [address] Alanis ChangEGFR-AF HONDURAN>60Normal>=60The [facility] CenterComment on above:Performed By: #### BMP #### [facility] [address] [address] [address] Zeke HodgeGFR-NON AF HONDURAN>60Normal>=60The [facility] CenterComment on above:Performed By: #### BMP #### [facility] [address] [address] [address] Zeke GarciaGlobulin (S) [Mass/Vol]3.3 g/dLNormKettering Health Main CampusComment on above:Performed By: #### BMP #### [facility] [address] [address] [address] Zeke GarciaGlucose [Mass/Vol]97 mg/bAAfiivp64-350Clr [facility] Comment on above:Performed By: #### BMP #### [facility] [address] [place] [address] Dr. Zeke GarciaPotassium [Moles/Vol]4.0 mmol/LNormal3.5-5.1The [facility] Comment on above:Performed By: #### BMP #### [facility] [address] [address] [address] Zeke GarciaProtein [Mass/Vol]7.0 g/dLNormal6.4-8.2The [facility] Comment on above:Performed By: #### BMP #### [facility] [address] [place] [address] Dr. Zeke GarciaSodium [Moles/Vol]138 mmol/ZSpwprt533-604Ktt [facility] Comment on above:Performed By: #### BMP #### [facility] [address] [address] [address] Zeke GarciaUrea nitrogen [Mass/Vol]15.0 mg/dLNormal7.0-18.0The [facility] CenterComment on above:Performed By: #### BMP #### [facility] [address] [address] [address] Zeke GarciaUrea nitrogen/Creatinine [Mass ratio]25.9 mg/mgNormKettering Health Main CampusComment on above:Performed By: #### BMP #### [facility] [address] [address] [address] Zeke Salmeron RATE WESTERGRENon 37-02-0694XZN RATE11 mm/hrNormal<=30The [facility] CenterComment on above:Performed By: #### SEDR #### [facility] [address] [address] [address] Zeke Aguiar RANDOM W/MICROSCOPICon 44-16-4058ZMYZEERINJVO SEENNormalNONE SEENOhiohealth Van Wert HospitalComment on above:Performed By: #### BMP #### [facility] [address] [address] [address] Zeke GarciaBilirubin Ql (U)NegativeNormalNEGATIVEThe [facility] Comment on above:Performed By: #### BMP #### [facility] [address] [address] [address] Zeke GarciaCASTNONE SEENNormalNONE SEENOhiohealth Van Wert HospitalComment on above:Performed By: #### BMP #### [facility] [address] [address] [address] Zeke Leivaarity (U)CLEARNormalCLEAROhiohealth Van Wert HospitalComment on above: Performed By: #### BMP #### [facility] [address] [address] [address] Zeke Gamez (U)LT. YELLOWNormalYELLOWOhiohealth Van Wert HospitalComment on above:Performed By: #### BMP #### [facility] [address] [address] [address] Zeke GarciaCrystals LM Nom (Urine sed)NONE SEENNormalNONE SEENOhiohealth Van Wert HospitalComment on above:Performed By: #### BMP #### [facility] [address] [address] [address] Alanis ChangEpithelial cells LM Ql (Urine sed)RARENormalNONE SEEN /RAREThe [facility] CenterComment on above:Performed By: #### BMP #### [facility] [address] [address] [address] Yilan ChangGlucose Ql (U)NegativeNormalNEGATIVEOhiohealth Van Wert HospitalComment on above:Performed By: #### BMP #### [facility] [address] [address] [address] Zeke GarciaHemoglobin Ql (U)TRACE-INTACTAbnormalNEGATIVEOhiohealth Van Wert HospitalComment on above:Performed By: #### BMP #### [facility] [address] [address] [address] Zeke GarciaKetones Ql (U)NegativeNormalNEGATIVEMckitrick Hospital HospitalComment on above:Performed By: #### BMP #### [facility] [address] [address] [address] Zeke GarciaLEUKOCYTESNegativeNormalNEGATIVEOhiohealth Van Wert HospitalComment on above:Performed By: #### BMP #### [facility] [address] [place] [address] Dr. Zeke GarciaMUCOUSNONE SEENNormalNONE SEENOhiohealth Van Wert HospitalComment on above:Performed By: #### BMP #### [facility] [address] [place] [address] Dr. Zeke GarciaNitrite Ql (U)NegativeNormalNEGATIVEOhiohealth Van Wert HospitalComment on above:Performed By: #### BMP #### [facility] [address] [place] [address] Dr. Zeke GarciapH (U)6.0 [pH]Normal5-9The [facility] CenterComment on above: Performed By: #### BMP #### [facility] [address] [place] [address] Dr. Zeke GarciaWasihYUB9-1Updolh2-8Sbq [facility] CenterComment on above:Performed By: #### BMP #### [facility] [address] [place] [address] Dr. Zeke GarciaSPEC GRAVITY<=1.551Vuudhkdu1.005-<=1.025The [facility] on above:Performed By: #### BMP #### [facility] [address] [place] [address] Dr. Zeke Aguiar PROTEINNegativeNormalNEGATIVE/ TRACEThe [facility] Comment on above:Performed By: #### BMP #### [facility] [address] [address] [address] Zeke Pachecobilkalpana Qn (U)0.2 {Lin'U}/dLNormal0.2 - 1.0The [facility] CenterComment on above:Performed By: #### BMP #### [facility] [address] [place], [place] [address] Dr. Zeke LopezBCNONKy SEENNormalNONE SEENThe [facility] CenterComment on above: Performed By: #### BMP #### [facility] [address] [address] [address] Zeke GarciaXR Shoulder Complete Right*on 64-31-7168LJ Shoulder Complete Right*HISTORY: Right arm radiation, acute [...] signed by Greg Vargas on 02/01/2022 1501NormalNorthern The Hospital Of Central ConnecticutXR Spine Cervical Complete*on 76-84-4709VX Spine Cervical Complete*HISTORY: Radiating right arm pain [...] assistance. Report reported and signed by Greg Vragas on 02/01/2022 1455NormalNorthern Indiana Medical [facility] Medical CenterXR HAND ANA MIN 3Von 81-34-5333VE HAND ANA MIN 3V EXAMINATION: XR HAND ANA MIN 3V, XR WRIST ANA MIN 3 V HISTORY: Hand pain COMPARISON: No relevant comparison available. FINDINGS: RIGHT FINDINGS: BONES: No acute fracture or dislocation. Moderate subchondral cystic changes most significant throughout the carpus and along the margins of the phalanges and metacarpals. There is joint space narrowing and marginal osteophyte formation with mcqf-bm-xhpk articulation of the first and second metacarpal [...] Electronically authenticated by: ADALI CAICEDO Date: 2021-11-19 07:50NoToledo HospitalC3 and C4 COMPLEMENTon 38-38-9461Qdvzidenaf C3, Gjwps885 mg/dL Pkllbz76-180VwdOhiohealth Van Wert HospitalComment on above:Performed By: #### CSUITE #### [facility] [address] [address] [address] Zeke GarciaComplement C4, Serum32 mg/dZVvvinw59-66XshOhiohealth Van Wert Hospital Comment on above:Performed By: #### CSUITE #### [facility] [address] [address] [address] Zeke GarciaCOMPLEMENT TOTAL (CH50)on 21-14-4650Fgqzqqwcst, Total (CH50)>60 Normal>41The [facility] CenterComment on above:Result Comment: Age Male Female 3 [...] of range values.Performed By: #### SEDR #### [facility] [address] [place] [address] Dr. Zeke Austin AUTO DIFFon 75-20-6357VBZL #0.1 103/ulNormal0.0-0.1The [facility] CenterComment on above:Performed By: #### BMP #### [facility] [address] [place] [address] Dr. Zeke GarciaBasophils/100 WBC (Bld)0.9 %Normal0.2-2.0[facility] Comment on above:Performed By: #### BMP #### [facility] [address] [place] [address] Dr. Zeke Thacker #0.1 103/ulNormal0.0-0.7The [facility] CenterComment on above: Performed By: #### BMP #### [facility] [address] [place] [address] Dr. Zeke Hodgeosinophils/100 WBC (Bld)1.7 %Normal0.9-7.0[facility] Comment on above:Performed By: #### BMP #### [facility] [address] [place] [address] Dr. Zeke Hodgerythrocyte distribution width (RBC) [Ratio]13.2 %Eljeic54.0-15.0 The [facility] Medical CenterComment on above:Performed By: #### BMP #### [facility] [address] [place] [address] Dr. Zeke GarciaHematocrit (Bld) [Volume fraction]41.1 %Lnptdi24.0-48.0The [facility] CenterComment on above:Performed By: #### BMP #### [facility] [address] [address] [address] Zeke GarciaHemoglobin (Bld) [Mass/Vol]13.7 g/jGZfqobk52.0-16.0The [facility] CenterComment on above:Performed By: #### BMP #### [facility] [address] [place] [address] Dr. Zeke Mahan #0.02 10e3/ulNormal0.00-0.03The [facility] CenterComment on above:Performed By: #### BMP #### [facility] [address] [place] [address] Dr. Zeke Mahan %0.3 %Normal0.0-0.5The [facility] CenterComment on above: Performed By: #### BMP #### [facility] [address] [place] [address] Dr. Zeke Scruggs #1.7 103/ulNormal1.2-3.8The [facility] CenterComment on above:Performed By: #### BMP #### [facility] [address] [place] [address] Dr. Zeke Beckhocytes/100 WBC (Bld)26.8 %Qtaqxy89.5-60.0The [facility] CenterCommymichigan medical center on above:Performed By: #### BMP #### [facility] [address] [place] [address] Dr. Zeke CalderonUAL DIFF REQNONormalThe [facility] CenterComment on above: Performed By: #### BMP #### [facility] [address] [place] [address] Dr. Zeke Christensen (RBC) [Entitic mass]33.1 pzAmwrad14.7-34.0The [facility] CenterComment on above:Performed By: #### BMP #### [facility] [address] [place] [address] Dr. Zeke Christensen (RBC) [Mass/Vol]33.3 g/kHZrpsfl54.9-35.2The [facility] CenterComment on above:Performed By: #### BMP #### [facility] [address] [address] [address] Zeke ChristensenV (RBC) [Entitic vol]99.3 fLCritically high81.0-99.0The [facility] CenterComment on above:Performed By: #### BMP #### [facility] [address] [place] [address] Dr. Zeke Alaniz #0.3 103/ulNormal0.3-0.8The [facility] CenterComment on above:Performed By: #### BMP #### [facility] [address] [place] [address] Dr. Zeke Cerdaocytes/100 WBC (Bld)5.3 %Normal1.7-12.0The [facility] Comment on above:Performed By: #### BMP #### [facility] [address] [place] [address] Dr. Zeke Dick #4.2 103/ulNormal1.4-6.5The [facility] CenterComment on above:Performed By: #### BMP #### [facility] [address] [place] [address] Dr. Zeke Ernstutrophils/100 WBC (Bld)65.0 %Pefhzi21.0-75.0The [facility] Medical CenterComment on above:Performed By: #### BMP #### [facility] [address] [place] [address] Dr. Zeke Sonlet mean volume (Bld) [Entitic vol]9.2 fLCritically low 9.5-13.5The [facility] CenterComment on above:Performed By: #### BMP #### [facility] [address] [place] [address] Dr. Zeke GuevaraT272 103/yeFmmood464-776Onp [facility] CenterComment on above: Performed By: #### BMP #### [facility] [address] [place] [address] Dr. Zeke GarciaRBC4.14 106/ulCritically low4.20-5.40The [facility] CenterComment on above:Performed By: #### BMP #### [facility] [address] [place] [address] Dr. Zeke GarciaWBC6.5 103/ulNormal4.0-11.0The [facility] CenterComment on above: Performed By: #### BMP #### [facility] [address] [place] [address] Dr. Zeke Angeles 83-56-0559MJD [Mass/Vol]mg/LNormal<=1.0The [facility] CenterComment on above:Performed By: #### CRP, CMP #### [facility] [address] [place] [address] Dr. Zeke Kent 14(COMP METB)on 79-36-1783Aptktsw [Mass/Vol]3.7 g/dLNormal 3.5-5.0The [facility] CenterComment on above:Performed By: #### CRP, CMP #### [facility] [address] [place] [address] Dr. Zeke GarciaAlbumin/Globulin [Mass ratio]1.0 {ratio}NormalThe [facility] CenterComment on above:Performed By: #### CRP, CMP #### [facility] [address] [place] [address] Dr. Zeke Galo [Catalytic activity/Vol]111 U/IUgmcke11-184Ckh Pomerene Hospitalment on above:Performed By: #### CRP, CMP #### [facility] [address] [place] [address] Dr. Zeke Dorantes [Catalytic activity/Vol]28 U/LNormal9-52The [facility] Comment on above:Performed By: #### CRP, CMP #### [facility] [address] [place] [address] Dr. Zeke Marin gap [Moles/Vol]10.8 mmol/LNormalThe [facility] Comment on above:Performed By: #### CRP, CMP #### [facility] [address] [place] [address] Dr. Yilan ChangAST [Catalytic activity/Vol]20 U/BGimkiw12-79Npv [facility] CenterComment on above:Performed By: #### CRP, CMP #### [facility] [address] [place] [address] Dr. Zeke GarciaBilirubin [Mass/Vol]0.6 mg/dLNormal0.2-1.3The [facility] Comment on above:Performed By: #### CRP, CMP #### [facility] [address] [place] [address] Dr. Zeke GarciaCalcium [Mass/Vol]9.7 mg/dLNormal8.4-10.2The [facility] Comment on above:Performed By: #### CRP, CMP #### [facility] [address] [place] [address] Dr. Zeke GarciaChloride [Moles/Vol]102 mmol/OCtcdym71-378Qhv [facility] Comment on above:Performed By: #### CRP, CMP #### [facility] [address] [place] [address] Dr. Zeke GarciaCO2 [Moles/Vol]31.1 mmol/LCritically high22.0-30.0The [facility] CenterComment on above:Performed By: #### CRP, CMP #### [facility] [address] [place] [address] Dr. Zeke GarciaCreatinine [Mass/Vol]0.56 mg/dLNormal0.52-1.04The [facility] CenterComment on above:Performed By: #### CRP, CMP #### [facility] [address] [place] [address] Dr. Zeke HodgeGFR-AF HONDURAN>60Normal>=60The [facility] CenterComment on above:Performed By: #### CRP, CMP #### [facility] [address] [place] [address] Dr. Zeke HodgeGFR-NON AF HONDURAN>60Normal>=60The [facility] CenterComment on above:Performed By: #### CRP, CMP #### [facility] [address] [place] [address] Dr. Zeke GarciaGlobulin (S) [Mass/Vol]3.7 g/dLNormKettering Health Main CampusComment on above:Performed By: #### CRP, CMP #### [facility] [address] [address] [address] Zeke GarciaGlucose [Mass/Vol]99 mg/kUFfmroc85-455VquOhiohealth Van Wert Hospital Comment on above:Performed By: #### CRP, CMP #### [facility] [address] [address] [address] Zeke GarciaPotassium [Moles/Vol]3.9 mmol/LNormal3.4-5.0The [facility] Comment on above:Performed By: #### CRP, CMP #### [facility] [address] [place] [address] Dr. Zeke GarciaProtein [Mass/Vol]7.4 g/dLNormal6.1-8.2[facility] Comment on above:Performed By: #### CRP, CMP #### [facility] [address] [place] [address] Dr. Zeke GarciaSodium [Moles/Vol]140 mmol/QCdlgsv824-203Hxq [facility] Comment on above:Performed By: #### CRP, CMP #### [facility] [address] [place] [address] Dr. Zeke GarciaUrea nitrogen [Mass/Vol]13.0 mg/dLNormal7.0-17.0The [facility] CenterComment on above:Performed By: #### CRP, CMP #### [facility] [address] [place] [address] Dr. Zeke GarciaUrea nitrogen/Creatinine [Mass ratio]23.2 mg/mgNoToledo HospitalComment on above:Performed By: #### CRP, CMP #### [facility] [address] [place] [address] Dr. Zeke Salmeron RATE WESTERGRENon 66-15-4561CEK RATE11 mm/hrNormal<=30The [facility] CenterComment on above:Performed By: #### SEDR #### [facility] [address] [address] [address] Zeke Aguiar RANDOM W/MICROSCOPICon 39-39-8462FMNTJROHBJNF SEENNormalNONE SEENOhiohealth Van Wert HospitalComment on above:Performed By: #### SEDR #### [facility] [address] [address] [address] Zeke GarciaBilirubin Ql (U)NegativeNormalNEGATIVEOhiohealth on above:Performed By: #### SEDR #### [facility] [address] [address] [address] Zeke GarciaCASTNONE SEENNormalNONE SEENOhiohealth Van Wert HospitalComment on above:Performed By: #### SEDR #### [facility] [address] [place] [address] Dr. Zeke GraciaClarity (U)CLEARNormalCLEAROhiohealth Van Wert HospitalComment on above: Performed By: #### SEDR #### [facility] [address] [address] [address] Zeke Chualor (U)LT. YELLOWNormalYELLOWOhiohealth Van Wert HospitalComment on above:Performed By: #### SEDR #### [facility] [address] [place] [address] Dr. Zeke GarciaCrystals LM Nom (Urine sed)NONE SEENNormalNONE SEENOhiohealth Van Wert HospitalComment on above:Performed By: #### SEDR #### [facility] [address] [place] [address] Dr. Alanis ChangEpithelial cells LM Ql (Urine sed)RARENormalNONE SEEN /RAREOhiohealth Van Wert HospitalComment on above:Performed By: #### SEDR #### [facility] [address] [place] [address] Dr. Zeke GarciaGlucose Ql (U)NegativeNormalNEGATIVEOhiohealth Van Wert HospitalComment on above:Performed By: #### SEDR #### [facility] [address] [place] [address] Dr. Zeke GarciaHemoglobin Ql (U)TRACE-INTACTAbnormalNEGATIVEOhiohealth Van Wert HospitalComment on above:Performed By: #### SEDR #### [facility] [address] [address] [address] Zeke Fuentesones Ql (U)NegativeNormalNEGATIVEOhiohealth Van Wert HospitalComment on above:Performed By: #### SEDR #### [facility] [address] [address] [address] Zeke GarciaLEUKOCYTESNegativeNormalNEGATIVEThe [facility] CenterComment on above:Performed By: #### SEDR #### [facility] [address] [place] [address] Dr. Zeke GivensCOUSNONKy SEENNormalNONE SEENOhiohealth Van Wert HospitalComment on above:Performed By: #### SEDR #### [facility] [address] [place] [address] Dr. Zeke Currytrite Ql (U)NegativeNormalNEGATIVEOhiohealth Van Wert HospitalComment on above:Performed By: #### SEDR #### [facility] [address] [place] [address] Dr. Zeke GarciapH (U)6.0 [pH]Normal5-9Ohiohealth Van Wert HospitalComment on above: Performed By: #### SEDR #### [facility] [address] [place] [address] Dr. Zeke GarciaJlagqTZW0-2Qeuxmt6-3Mhg Bellevue HospitalComment on above:Performed By: #### SEDR #### [facility] [address] [place] [address] Dr. Zeke GarciaSPEC GRAVITY<=1.359Cldyqtne0.005-<=1.025Ohio[facility] Comment on above:Performed By: #### SEDR #### [facility] [address] [place] [address] Dr. Zeke Aguiar PROTEINNegativeNormalNEGATIVE/ TRACEOhiohealth Van Wert Hospital Comment on above:Performed By: #### SEDR #### [facility] [address] [place] [address] Dr. Yilan ChangUrobilinogen Qn (U)0.2 {Lin'U}/dLNormal0.2 - 1.0The [facility] CenterComment on above:Performed By: #### SEDR #### [facility] [address] [address] [address] Zeke GarciaWBCNONKy SEENNormalNONE SEENThe [facility] CenterComment on above: Performed By: #### SEDR #### [facility] [address] [address] [address] Zeke GarciaAmbulatory Visit Summaryon 01-11-3738Ujnrkooqtc Visit Summary DISHA DE LA GARZA :1950 Visit Date:10/18/2021 Ambulatory Visit Instructions Your Diagnosis Asymptomatic microscopic hematuria Other post-traumatic urethral stricture, female Urge incontinence Tests Performed Urnls Dip Stick Auto w/o Microscopy POC 60530 Your Care Team Attending Physician - Nate Mccoy MD, Ralph Bauer Primary Care Physician - MEETA JORDAN, WILL Leo What to do next Scheduled Follow-Up Appointments Sunday 8:30 AM EDT With: Nate Mccoy MD, Ralph Bauer [facility]Patient Educationon 17-00-9137Pkdgseo EducationUrology Urinary Incontinence Urinary incontinence refers to [...] nerve stimulation). ? For women, using a medical director/head team physician to prevent urine leaks. This is a [...] after experiencing incontinence. General instructions ? Take vqqq-rzp-ihevhwg and prescription medicines only as (more content not included)...[facility] HospitalUrology Office/Clinic Noteon 06-16-8873Glmmvhb Office/Clinic NoteChief Complaint 6-8 week follow up This patient is a 71-year-old female with a history of hematuria. Her work-up included cystoscopy with CT scan, urine cytology and cystoscopy with urethral dilation. Other problems included urinary difficulties which have significantly improved since her dilation. She is here today for her first postop visit. [facility] Staff Pt is here today for [...] urine and/or bladder capacity by US- non-imaging 27091 Urnls Dip Stick Auto w/o Microscopy POC 51765 2. Other post-traumatic urethral stricture, female (N35.028: Other post- traumatic urethral stricture, female) 3. Urge incontinence (N39.41: Urge incontinence) Pt wears a depends just in case of accidents but pt states her incontinence is intermittent. Ordered: Measure Post Void residual urine and/or bladder capacity by US- non-imaging 14157 Orders: ciprofloxacin, 500 mg = 1 tab(s), Oral, As Directed, Pt. to take 1 tab the day before procedure andthe 2nd tab the day of procedure once completed., # 2 tab(s), Refills(s) 0, Pharmacy: [facility], 160, cm, 08/02/21 8:30:00 EST, Height/Length Dosing, 78... Follow-up With When Contact Information Nate Mccoy MD, Ralph Bauer, URO Within 6 months [facility] [address], [place] [address] [phone] Additional Instructions: [facility] Patient Education Urinary Incontinence [...] history is unknown Immunizatio (more content not included)...[facility] Comment on above:Result Comment: Electronically Signed By: Ralph Sullivan Jr., MD\.br\Date and Time Signed: 10/18/2212:14 EST\.br\Electronically Co-Signed By: Cyndi Gonzalez MA\.br\Date and Time Co-Signed: 10/18/21 09:16 ESTConsent for Procedure/Surgeryon 92-42-4452Exgdean for Procedure/Surgery [id number]#1.00CD:127NoEast Ohio Regional HospitalAmbulatory Clinical Summaryon 53-53-2677Zzzbavltrr Clinical Summary {05-36-79-34-pd-5j-3g-14-77-kv-49-y1-06-55-20-0e}CD:[id number] Memorial HospitalPatient Educationon 12-94-5592Jmvlcup EducationMental and Behavioral Health Tobacco Use Disorder [...] withdrawal symptoms. NRT is available as: ? Poiv-eei-skdxaru gums, lozenges, and skin patches. ? Prescription [...] for many people. General instructions ? Take diro-ixr-pitckfv and prescription medicines only as told by your health care provider. ? Check with your health care provider before taking any new prescription or zerw-xpp-bfbwxoz medicines. ? Decide on a friend, family member, or smoking quit-line (such as 4-573-HEGQ-NOW in the [place] thatyou can call or [...] condition may be diagn (more content not included)...[facility] HospitalUrology Office/Clinic Noteon 96-28-0400Ftzdqmv Office/Clinic Note Chief Complaint Pt is here [...] urine The Urethra was dilated to: 30 Maltese with sounds. Specimens Removed: None Removal: Cystoscope is removed. The patient tolerated it well. Postoperative Information Patient is discharged home with antibiotic coverage. Follow up arranged for 6 weeks with [facility]. Assessment/Plan Cystoscopy with urethral dilation was performed. Hematuria work-up included CT scan that showed no abnormal findings. Urethral dilation was completed to 30 Maltese. Patient tolerated procedure withoutcomplication. Her urinary work-up [...] Oral, Daily Latanoprost 0.005% eye solution, 0 ga (more content not included)...[facility] HospitalComment on above:Result Comment: Electronically Signed By: Ralph Sullivan Jr., MD\.br\Date and Time Signed: 08/29/2111:34 EST\.br\Electronically Co-Signed By: Laura Obrien MA\.br\Date and Time Co-Signed: 08/29/21 11:31 ESTLab Reportson 71-71-4016Upf [id number]:127[facility] HospitalRAD - CT Reporton 25-90-2130GZV - CT Report [id number]:127[facility] HospitalLab Reportson 84-59-0546Wgq Reports [id number]:127[facility] HospitalAmbulatory Clinical Summaryon 11-65-3649Clipledmse Clinical Summary {06-q1-ca-m8-54-fw-5t-46-8l-01-1v-2z-0b-cb-15-b7}CD:655959LvzayjPdrkhoEast Ohio Regional HospitalPatient Educationon 13-99-8480Xugvnyr EducationUrology Hematuria, Adult Hematuria is blood in [...] these instructions at home: Medicines ? Take ipdr-msh-xdpbzcw and prescription medicines only as told by [...] the blood stops without treatment. ? Take cwpi-ltf-dhupzyv and prescription medicines only as told by your health care provider. ? Drink enough fluid to keep your urine clear or pale yellow. This information is not intended to replace advice given to you by your health care provider. Make sure you discuss any questions you have with your health care provider. Document Released: 09/03/2006 Document Revised: 01/28/2020 Document Reviewed: 10/06/2017 [employer] Patient Education ? 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 She is a cigarette smoker. She is here today to establish urologic care. 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 Tim [...] Urnls Dip Stick Auto w/o Microscopy POC 89536 Urology Procedure Order Urology Procedure Order 2. [...] # 2 tab(s), Refills(s) 0, Pharmacy: [facility], 160, cm, 08/02/21 8:30:00 EST, Height/Length Dosing, 78... Follow-up With When Contact Information Nate Mccoy MD, Ralph Bauer, URO [facility] [address], [place] [address]- Additional Instructions: schedule cysto/UD & CT AP w/ con Patient Education Hem (more content not included)...[facility] HospitalComment on above:Result Comment: Electronically Signed By: Ralph Sullivan Jr., MD\.br\Date and Time Signed: 08/02/2108:52 EST\.br\Electronically Co-Signed By: Saba George\.br\Date and Time Co-Signed: 08/02/21 08:47 EST Vital Signs Date TimeVital SignValuePerforming WgshjkgkvYedntvwf00-10-5384 14:54-0400Body lfaooa464 cmAntsaira Arevalo DPM Work Phone: [facility]Ycdkpsaiur12-17-8996 14:54-0400Body mass index (BMI) [Ratio]31.89 kg/y0JjalthqOsei Arevalo DPM Work Phone: [facility]ettYugsovsmoi83-63-5362 14:54-0400Body jlnrou76.65 kgOsei Arevalo DPM Work Phone: [facility]ettMvhcsugnrz82-69-5362 09:18-0400Body vuxyoq50 kg Will Tim MD Work Phone: [facility]07-24-2025 08:21-0400 Body .02 cmEerlin Tim MD Work Phone: [facility]07-24-2025 08:21-0400 Body mass index (BMI) [Ratio]32.1 kg/v8NhdfstWill Tim MD Work Phone: [facility]07-24-2025 08:21-0400 Body tdvvyj17.3 kgWill Tim MD Work Phone: [facility]07-02-2025 14:03-0400 Body oygihm934 cmEdjake Tim MD Work Phone: [phone]07-02-2025 14:03-0400Body mass index (BMI) [Ratio]31.97 kg/w3CofqzdWill Tim MD Work Phone: [phone]07-02-2025 14:03-0400Body .87 kgWill Tim MD Work Phone: [phone] [place], [place] [address]7-02-2025 14:03-0400Heart mxmk827 /min Will Tim MD Work Phone: [phone] [place], [place] 3903807-02-2025 14:03-2798VwZ4% (BldA) [Mass fraction]96 %Will Tim MD Work Phone: [phone] [place], [place] [address]Dobnhijygj38-13-1296 14:27-0400Body mnqyst266 cm Osei Arevalo DPM Work Phone: [phone]05-28-2025 14:27-0400Body mass index (BMI) [Ratio]31.53 kg/y6XympkmbOsei Arevalo DPM Work Phone: [phone]05-28-2025 14:27-0400Body cuqweh62.74 kgOsei Arevalo DPM Work Phone: [phone]05-19-2025 09:17-0400Body bygwfl883 cm Will Tim MD Work Phone: [phone]ettBnuqojdlib43-73-2773 09:17-0400Body mass index (BMI) [Ratio]31.53 kg/h6OpmqkaWill Tim MD Work Phone: [phone]05-19-2025 09:17-0400Body tzjnoz45.74 kgWill Tim MD Work Phone: [phone])[address] [place], [place] 390[address]5-19-2025 09:17-0400Diastolic blood ppwrhbyn23 mm[Hg]Will Tim MD Work Phone: 1(256)[address] [place], [place] 390[address]5-19-2025 09:17-0400Heart rate92 /min Will Tim MD Work Phone: [phone])[address] [place], [place] 390[address]5-19-2025 09:17-7840UwP4% (BldA) [Mass fraction]99 %Will Tim MD Work Phone: [phone])[address] [place], [place] 3903805-19-2025 09:17-0400Systolic blood wglryyar235 mm[Hg]Will Tim MD Work Phone: [phone])[address] [place], [place] 390[address]2-19-2025 14:18-0500Body cm Osei Arevalo DPM Work Phone: [phone] [place], [place] 0473302-19-2025 14:18-0500Body mass index (BMI) [Ratio]30.82 kg/c1Cgjtmdv Rusher DPM Work Phone: [phone]02-19-2025 14:18-0500Body ofsbsg26.93 kgAnthony Rusher DPM Work Phone: [phone])[address]02-10-2025 13:57-0500Body cm Will Tim MD Work Phone: [phone] [place], [place] 390[address]2-10-2025 13:57-0500Body mass index (BMI) [Ratio]30.82 kg/o3MvnyqtWill Tim MD Work Phone: [phone])[address] [place], [place] 390[address]2-10-2025 13:57-0500Body erfvyj43.93 kgWill Tim MD Work Phone: [phone])[address]11-19-2024 13:57-0500Body cm Osei Arevalo DPM Work Phone: [phone] [address]-19-2024 13:57-0500Body mass index (BMI) [Ratio]30.82 kg/r1Jzgoaij Rusher DPM Work Phone: [phone] [address]-19-2024 13:57-0500Body xbzreh00.93 kgOsei Arevalo DPM Work Phone: [facility]ettXbuqfnzliv78-59-5394 08:28-0400Body cm Will Tim MD Work Phone: [facility]ettVilehvwxmd21-63-8558 08:28-0400Body mass index (BMI) [Ratio]30.82 kg/t9GzzskfWill Tim MD Work Phone: [facility]ettHxvecljmdl92-10-7333 08:28-0400Body .93 kgWill Tim MD Work Phone: [facility]ettWspmoxneyu91-45-4348 08:28-0400Diastolic blood eujnhuxg00 mm[Hg]Will Tim MD Work Phone: [facility]ettQspayganou30-40-3561 08:28-0400Heart idzd454 /min Will Tim MD Work Phone: [facility]ettUohoypxvby74-35-0443 08:28-2060ArR9% (BldA) [Mass fraction]97 %Will Tim MD Work Phone: [facility]ettWntxtdmalw15-60-7672 08:28-0400Systolic blood hralydow483 mm[Hg]Will Tim MD Work Phone: [facility]ettKjnzjlpobp80-03-9203 13:45-0400Body ejzkea679 cm Will Tim MD Work Phone: [facility]ettUfgbytshhe74-86-0398 13:45-0400Body mass index (BMI) [Ratio]31.35 kg/g3SjununWill Tim MD Work Phone: [facility]ettXdmdmysdta82-44-9003 13:45-0400Body eajsmh49.29 kgWill Tim MD Work Phone: [facility]ettRddtxgvwgy34-89-0410 11:07-0400Body miqzyb185 cm Alen Rausch MD Work Phone: [facility]ettJzscvwnwzu28-72-3220 11:07-0400Body mass index (BMI) [Ratio]31.35 kg/m8NfihmaAlen Rausch MD Work Phone: [facility]ettHappmmtlmm39-88-8883 11:07-0400Body nzgakr23.29 kgAlen Rausch MD Work Phone: [facility]ettXenuuadhth32-92-6877 11:07-0400Diastolic blood dlnsdblo96 mm[Hg]Alen Rausch MD Work Phone: [facility]ettSxakjhzjzt93-79-4267 11:07-0400Systolic blood gqjpgkxe111 mm[Hg]Alen Rausch MD Work Phone: [facility]ettDifdqkbehv41-41-2403 14:00-0500Body iisvgz183.02 cmDajason Garcia Other [employer] Other 11-22-2022 14:00-0500Body mass index (BMI) [Ratio] 31.88 kg/m2Dajason Garcia Other [employer] Other 11-22-2022 14:00-0500Body .65 kgDale Radha Other [employer] Other 11-09-2022 08:25-0500Diastolic blood vjoltkok81 mm[Hg] MD Will Tim Work Phone: [facility]11-09-2022 08:25-0500 Heart rate75 /minMD Will Tim Work Phone: [facility]11-09-2022 08:25-0500 Respiratory rate16 /minMD Will Tim Work Phone: [facility]11-09-2022 08:25-0500 SaO2% (BldA) [Mass fraction]97 %MD Will Tim Work Phone: [facility]11-09-2022 08:25-0500 Systolic blood sxtbghbo189 mm[Hg]MD Will Tim Work Phone: [facility]11-09-2022 07:55-0500 Inhaled oxygen flow rate6 L/minMD Rauljake Babaragustina Work Phone: [facility]11-09-2022 07:14-0500 Body sgyglb490.02 cmMD Will Tim Work Phone: [facility]11-09-2022 07:14-0500 Body mass index (BMI) [Ratio]33.5 kg/m2MD Will Tim Work Phone: [phone] [place], [place] 9227711-09-2022 07:14-0500 Body ajakom99.8 kgMD Will Tim Work Phone: [phone] [place], [place] 9227711-09-2022 06:14-0500 Body oehezzjthfb91.7 [degF]MD Will Tim Work Phone: [facility]10-06-2022 15:20-0400 Body .02 cmDajason Garcia Other [employer] Other 10-06-2022 15:20-0400Body mass index (BMI) [Ratio] 31.88 kg/m2Dajason Garcia Other [employer] Other 10-06-2022 15:20-0400Body .65 kgDale Radha Other [employer] Other Encounters Encounter DateEncounter TypeCare ProviderFacilityStart: 05-26-2025 End: 58-13-3712Afbadjri Result EncounterJodi Obermeyer LABORATORY SUPERVISOR Work Phone: [facility] External Department UnsolicitedStart: 05-26-2025 End: 67-03-3112Zfrmsvif Result EncounterJodi Obermeyer LABORATORY SUPERVISOR Work Phone: [facility] External Department UnsolicitedStart: 05-19-2025 End: 13-53-7037Vrvfmui encounter procedureAnthsuly Arevalo DPM Work Phone: [facility] PodiatryComment on above:Onychomycosis (Primary Dx); Onychodystrophy; Diabetic polyneuropathy associated with type 2 diabetes mellitus (HCC)Start: 05-19-2025 End: 75-05-7238vthseduhujXKBHUHH S RUSHERNot AvailableStart: 05-19-2025 End: 26-10-4623Yohxds flowsheetAnthony Romina Arevalo DPM Work Phone: [facility] PodiatryStart: 05-19-2025 End: 30-37-1136Ytkxja flowsheetAnthsuly Arevalo DPM Work Phone: [facility] PodiatryStart: 05-12-2025 End: 82-70-3618tepcfxpwqaUsybql J Hemeyer MD Work Phone: [facility] Work Phone: Start: 05-12-2025 End: 65-50-4223Igsbknd encounter procedureWillie Garcia MD-[facility] Work Phone: start: 04-09-2025 End: 07-51-6254pexigjysehLljwsz J Hemeyer MD Work Phone: [facility] Work Phone: Start: 04-09-2025 End: 21-56-7042Dchdebv encounter procedureWillie Garcia MD-[facility] Work Phone: start: 03-30-2025 End: 28-71-0842mcpwwrprejBnyzipzAshli Issa MDFacility:[facility] Start: 03-18-2025 End: 94-90-1702Xmjjde Alberto Tim MD Work Phone: [facility] 100Start: 03-18-2025 End: 04-60-3364Rojxwujose Tim MD Work Phone: [facility] 100Start: 03-18-2025 End: 67-58-9162Hdgtxo outpatient visit 15 minutesWill Tim MD Work Phone: [facility] 100Comment on above:Recurrent major depressive disorder, in partial remission (Primary Dx); Osteopenia, unspecified location; Impaired glucose tolerance testStart: 03-18-2025 End: 10-71-2740tlnlhyuptiVVFQTN J HEMEYERNot AvailableStart: 02-27-2025 End: 96-37-8273Qdplizufn Result Dakota Tim MD Work Phone: n[facility] External Department UnsolicitedStart: 02-27-2025 End: 60-82-6343Yukexkrgk Result EncounterEdjake Tim MD Work Phone: [facility] External Department UnsolicitedStart: 02-15-2025 End: 79-00-7500Diqnru OnlyEdjake Tim MD Work Phone: [facility] 100Start: 02-11-2025 End: 74-04-1584Odicvee encounter procedureAnthony S Mickey DPM Work Phone: [facility] PODIATRYComment on above:Onychomycosis (Primary Dx); Onychodystrophy; Diabetic polyneuropathy associated with type 2 diabetes mellitus ([facility])Start: 02-11-2025 End: 09-77-2122rftneppfjfXXQJBHP S RUSHERNot AvailableStart: 02-11-2025 End: 80-82-4503Fxaedr flowsheetAnthony S Rusher DPM Work Phone: [facility] PODIATRYStart: 02-11-2025 End: 18-30-5783Xqakpl flowsheetAnthony S Rusher DPM Work Phone: [facility] PODIATRYStart: 02-02-2025 End: 19-25-8198Dcqjmf flowsGeorgiana Tim MD Work Phone: [facility] CI FM 100Start: 02-02-2025 End: 96-64-1960Vhjhbn flowsGeorgiana Tim MD Work Phone: [facility] 100Start: 02-02-2025 End: 75-78-6867Zdirwge encounter procedureWill Tim MD Work Phone: [facility] [...] Cigarette smoker; Cardiovascular event riskStart: 02-02-2025 End: 50-51-9471tuumbpafvyHGQPIO J HEMEYERNot AvailableStart: 01-05-2025 End: 33-83-9564Xfxjhy flowsheetSammantha Campos PTNOMS CI PTStart: 01-05-2025 End: 44-38-5664Jregrg flowsheetSammantha Campos PTNOMS CI PTStart: 01-05-2025 End: 70-42-0819cmvwgxuqakHadrkkate Campos PTNOMS CI PTComment on above: Chronic pain syndrome (Primary Dx); Right leg weakness; Neuropathy; Right foot painStart: 01-01-2025 End: 05-94-2594Izwoqe flowsheetMelissa Kelbley PTANOMS CI PTStart: 01-01-2025 End: 10-41-6524Xagvaf flowsheetMelissa Kelbley PTANOMS CI PTStart: 01-01-2025 End: 58-89-1765swoaorcccoEynetnz Kelbley PTANOMS CI PTComment on above:Chronic pain syndrome (Primary Dx); Right leg weaknessStart: 12-30-2024 End: 59-87-4502Qtlitb flowsheetMelissa Kelbley PTANOMS CI PTStart: 12-30-2024 End: 50-40-7772Bgyqcn flowsheetMelissa Kelbley PTANOMS CI PTStart: 12-30-2024 End: 36-95-6306qkesiyawloMkvkfat Kelbley PTANOMS CI PTComment on above:Chronic pain syndrome (Primary Dx); Right leg weaknessStart: 12-25-2024 End: 17-35-3470hvkkzhelmjLamqrwu Kelbley PTANOMS CI PTComment on above:Chronic pain syndrome (Primary Dx); Right leg weaknessStart: 12-25-2024 End: 49-29-3914Fdayjn flowsheetMelissa Kelbley PTANOMS CI PTStart: 12-25-2024 End: 92-36-7532Gfnuba flowsheetMelissa Kelbley PTANOMS CI PTStart: 12-22-2024 End: 03-16-4605Pwrohl flowsheetMelissa Kelbley PTANOMS CI PTStart: 12-22-2024 End: 70-60-4942Qmlawc flowsheetMelissa Kelbley PTANOMS CI PTStart: 12-22-2024 End: 53-71-1327fzeggflhppCbuilki Kelbley PTANOMS CI PTComment on above:Chronic pain syndrome (Primary Dx); Right leg weaknessStart: 12-19-2024 End: 65-56-0175Adrmwf flowsheetMelissa Kelbley PTANOMS CI PTStart: 12-19-2024 End: 08-51-8600Gxcuao flowsheetMelissa Kelbley PTANOMS CI PTStart: 12-19-2024 End: 96-62-8873gvybkcawqqOtzgtnm Kelbley PTANOMS CI PTComment on above:Chronic pain syndrome (Primary Dx); Right leg weaknessStart: 12-16-2024 End: 39-57-6352Vqnhrz flowsheetMelissa Kelbley PTANOMS CI PTStart: 12-16-2024 End: 30-12-4316Kgpuuv flowsheetMelissa Kelbley PTANOMS CI PTStart: 12-16-2024 End: 97-48-7771qvwfiycvexOcgumvg Kelbley PTANOMS CI PTComment on above:Chronic pain syndrome (Primary Dx); Right leg weakness; NeuropathyStart: 12-10-2024 End: 04-28-7061Ueufow flowsheetMelissa Kelbley PTANOMS CI PTStart: 12-10-2024 End: 75-04-0056Hjebji flowsheetMelissa Kelbley PTANOMS CI PTStart: 12-10-2024 End: 75-49-8782nvvxwmzyicOhvdwhl Kelbley PTANOMS CI PTComment on above:Chronic pain syndrome (Primary Dx); Right leg weaknessStart: 12-08-2024 End: 97-97-6377gjuirwntphQXALHKH KELBLEYNot AvailableStart: 12-05-2024 End: 23-48-6898manfnxwzicIMNPCJJO BRINKNot AvailableStart: 12-03-2024 End: 15-20-8188nxhutmjfgwLTGICLIGV SCHNEIDERNot AvailableStart: 11-24-2024 End: 00-56-5281jlozehiuipDSYKBM DANNERNot AvailableStart: 11-24-2024 End: 92-99-1265icqqhwxokmHKOJQH J HEMEYERNot AvailableStart: 11-05-2024 End: 26-03-5604Gtnjje outpatient visit 15 minutesAnthsuly Arevalo DPM Work Phone: NOMS PODIATRYComment on above:Onychomycosis (Primary Dx); Onychodystrophy; Diabetic polyneuropathy associated with type 2 diabetes mellitus ([facility])Start: 11-05-2024 End: 46-85-8106bspzmdirpuCZAEGOI Romina PALACIOHERNot AvailableStart: 11-05-2024 End: 41-94-3558Ptmkei flowsheetAnthony Romina Arevalo DPM Work Phone: N[facility]S FH PODIATRYStart: 11-05-2024 End: 23-61-8992Pmukin flowsheetAnthony S Mickey DPM Work Phone: noMS PODIATRYStart: 10-27-2024 End: 10-81-9643Qntkjf Alberto Tim MD Work Phone: [facility] CI FM 100Start: 10-27-2024 End: 44-70-0683Hipemo Alberto Tim MD Work Phone: [facility] CI FM 100Start: 10-27-2024 End: 04-19-8732Qzkzqo outpatient visit 25 minutesWill Tim MD Work Phone: noms CI FM 100Comment on above:Right foot pain (Primary Dx); Right leg weakness; Limping; Artificial knee joint present, right; Right leg swelling; Rheumatoid arthritis involving multiple sites with positive rheumatoid factor ([facility])Start: 10-27-2024 End: 49-29-0956nanuwdhrijKPYTRR J HEMEYERNot AvailableStart: 10-20-2024 End: 03-38-0813Rjorgykzj encounterEdjake Tim MD Work Phone: noms CI FM 100Start: 08-12-2024 End: 46-22-6815Epxluf flowsheetJames A Izzy DO Work Phone: noms ORTHOPAEDICSStart: 08-12-2024 End: 30-57-6270Ztnwdm flowsheetJames A Izzy DO Work Phone: noms ORTHOPAEDICSStart: 08-12-2024 End: 77-04-6415qussbhlzvnBOQFZ A HUDDLESTONNot AvailableStart: 08-12-2024 End: 06-61-8019Taainw outpatient visit 10 minutesJames A Izzy DO Work Phone: noms ORTHOPAEDICSComment on above:Arthritis of right knee; Arthritis of left knee; S/P total knee arthroplasty, left; S/P total knee arthroplasty, rightStart: 08-05-2024 End: 77-17-1390Etluxj flowsheetAnthony S Rusher DPM Work Phone: noms PODIATRYStart: 08-05-2024 End: 32-98-2352Savyiu flowsheetAnthony S Rusher DPM Work Phone: noms PODIATRYStart: 08-05-2024 End: 35-07-0047Boqzid outpatient visit 15 minutesAnthsuly S Ebenher DPM Work Phone: noms PODIATRYComment on above:Onychomycosis (Primary Dx); Onychodystrophy; Diabetic polyneuropathy associated with type 2 diabetes mellitus (CMS/HCC); Primary osteoarthritis of left ankle; Primary osteoarthritis of right ankleStart: 08-05-2024 End: 68-16-0279etsnbnexgiVTDVXOB Romina AREVALOLakshmi AvailableStart: 07-15-2024 End: 40-27-1237Fndrts follow up visit related to original Jacqueline Arshad MD Work Phone: noms ST GENSComment on above:Positive colorectal cancer screening using Cologuard test (Primary Dx); Diverticulosis large intestine w/o perforation or abscess w/o bleedingStart: 07-15-2024 End: 94-45-3695imlilxzrylYIKRKF VARGAS VNot AvailableStart: 07-03-2024 End: 86-64-1538Savcrv Alberto Tim MD Work Phone: noms CI FM 100Start: 07-03-2024 End: 96-93-2498Dzksor Alberto Tim MD Work Phone: [facility] CI FM 100Start: 07-03-2024 End: 20-37-4285Zpztbc outpatient visit 25 minutesWill Tim MD Work Phone: noms CI FM 100Comment on above:Essential hypertension (CMS/HCC) (Primary Dx); Hypertensive nephropathy (CMS/HCC); Insulin resistance; Impaired glucose tolerance test; Mixed hyperlipidemia (CMS/HCC); Left foot pain; TMJ syndrome; Encounter for examination following treatment at hospital; Polypharmacy; Obesity (BMI 30.0-34.9)Start: 07-03-2024 End: 67-37-9394ghcwcxlcmdDGASVS J HEMEYERNot AvailableStart: 06-10-2024 End: 37-05-8840Jmnodh outpatient visit 25 minutesWill Tim MD Work Phone: NOMS CI FM 100Comment on above:Yeast dermatitis; Polypharmacy; Obesity (BMI 30.0-34.9)Start: 06-10-2024 End: 24-56-3664rmpigozfdqNLDCEH J HEMEYERNot AvailableStart: 06-02-2024 End: 88-27-4336Oareka OnlyOsei Arevalo DPM Work Phone: noms FH PODIATRYComment on above:Primary osteoarthritis of left ankle (Primary Dx)Advice OnlyStart: 05-23-2024 End: 42-09-2854Gywcat outpatient new 45 minutesAlen Arshad MD Work Phone: noms ST GENSComment on above:Positive colorectal cancer screening using Cologuard test (Primary Dx); Encounter for screening for malignant neoplasm of colonStart: 05-23-2024 End: 45-67-4511ybwhibsahgMNMXFM VARGAS VNot AvailableStart: 05-13-2024 End: 46-38-4409Qotryh Virgie Engle NP Work Phone: noms CI ORTHOPAEDICSStart: 05-13-2024 End: 27-52-5119Pvfvus Virgie Engle MARKETING OPERATIONS ANALYST Work Phone: noms CI ORTHOPAEDICSStart: 05-13-2024 End: 72-45-7999Lkwzzv outpatient visit 10 minutesVivek Engle NP Work Phone: noms CI ORTHOPAEDICSComment on above:S/P reverse total shoulder arthroplasty, right; Osteoarthritis of right glenohumeral jointStart: 01-24-2024 End: 42-73-0748gjkioyfrzxDBZVYI J. HEMEYERFacility:[facility] HospitalStart: 01-17-2024 End: 67-37-0398rwzxfihglzDWEEGI J. HEMEYERFacility:[facility] HospitalStart: 01-10-2024 End: 10-56-0145iblkfykjcyFZTWWH J. HEMEYERFacility:[facility] HospitalStart: 01-03-2024 End: 01-35-4166vgznhheskfXAVFWW J. HEMEYERFacility:[facility] HospitalStart: 12-27-2023 End: 49-85-9527bkvofrzktdIE Katherine TurnerFacility:[facility] HospitalStart: 12-20-2023 End: 63-71-8009savtmswgumYA Katherine TurnerFacility:[facility] HospitalStart: 12-13-2023 End: 95-37-9349aharaogneyDJ Dominique ColemanFacility:[facility] HospitalStart: 12-06-2023 End: 08-41-9169hlfiqhywxvNA Dominique ColemanFacility:[facility] HospitalStart: 11-27-2023 End: 42-23-9367mxrwwwmvjhEL Katherine TurnerFacility:[facility] HospitalStart: 10-29-2023 End: 94-79-5774tfnlgtcwohSdcrd Mainor IzzyFacility:[facility] HospitalStart: 09-36-1353Texzf Sushila Magana DO Work Phone: noms CI ORTHOPAEDICSStart: 03-21-8427TapuzeVedam T Olsen MARKETING OPERATIONS ANALYST Work Phone: NOLP FB ORTHOPAEDICSComment on above:Post-operative pain (Primary Dx)Start: 10-04-2023 End: 04-61-4443ierjbxhkiyMwlkg Mainorrivas MaganaFacility:[facility] HospitalStart: 08-15-2022 End: 19-42-6353gttwrdmhmmRC EDWARD HEMEYERFacility:N9Urbxd: 08-11-2022 End: 53-28-6103mvrfpsjtroKY WILL TIMFacility:T4Wqjzk: 08-08-2022 End: 86-29-8014tzhrliskzyQtvs Braun Other [facility] [email or web address] Other start: 14-24-6883Cbhpnj follow up visit related to original pxDale BraunFPG [facility] NeurosurgeryStart: 07-26-2022 End: 03-69-5033Xxxlqifmw to same day surgery centerMD Will Tim Work Phone: [facility] CenterStart: 07-26-2022 End: 14-80-4093pvnfeqzjnuBG Edward J Hemeyer Work Phone: [facility] Work Phone: Start: 07-24-2022 End: 81-88-1377wnguudltfgYH Edjake J Hemeyer Work Phone: [facility] Work Phone: Start: 07-24-2022 End: 26-34-8423Zzgmzwb encounter procedureMD Edward Hemeyer Work Phone: [facility] Cpp-Naj-Rkfpktml Testing Start: 07-12-2022 End: 76-71-4214btpdjtifmwQF Edjake J Hemeyer Work Phone: [facility] Work Phone: Start: 07-12-2022 End: 92-46-7731Ccryquu encounter procedureMD Edjake Hemeyer Work Phone: [facility] Ysd-Xvn-Heoasevc Testing Start: 06-22-2022 End: 96-36-6651fefqrbyvchNbyi Garcia Other [place] [employer] Other start: 44-59-1360Eaowgg outpatient new 30 minutesDale BraunSum[facility] NeurosurgeryStart: 06-21-2022 End: 11-26-6830drjqdesyuxMG Will Leo Hemeyer Work Phone: [facility] Work Phone: Start: 06-21-2022 End: 22-84-0566Zwzjjkn encounter procedureMD Edjake Hemeyer Work Phone: [facility] CampusStart: 04-30-2022 End: 16-89-2945jgddxfhiuoOTFMAX RODRIGUEZFacility:J2Saali: 02-11-2022 End: 17-68-6462betyosqyoaCO EDWARD HEMEYERFacility:E6Qlrml: 11-19-2021 End: 31-78-5867ievuhgieqgOO EDWARD HEMEYERFacility:J4Ffwup: 11-05-2021 End: 18-99-2465fvhrhorchdVJ EDWARD HEMEYERFacility:H1 Procedures DateProcedureProcedure DetailPerforming ClinicianStart: 38-98-3234Eaftjkqi blood count with white cell differential, automatedJodi Obermeyer LABORATORY SUPERVISOR Work Phone: Start: 35-96-4363Dxffamtidcfbf metabolic panelJodi Obermeyer LABORATORY SUPERVISOR Work Phone: Start: 31-41-3085Ccnej radiography of pelvisWill Tim MD Work Phone: Start: 63-06-0783D-ray of lumbar spine, six views including bending viewsWill Tim MD Work Phone: Start: 66-04-5581MT LUMBAR SPINE WO CONGeneric External Data ProviderStart: 22-88-4648LC TOMOSYNTHESIS SCREENING Richard Tim MD Work Phone: Start: 65-77-4179FhrkjdyoltoOqorit Hemeyer MD Work Phone: Start: 86-41-2071Mbrclvmwth glycosylated m4dRmcjntWill Tim MD Work Phone: Start: 51-73-8788Curnq albumin quantitativeEdjake Tim MD Work Phone: Start: 61-33-7224JefcybizelzBqofxz Jeancarlos Rausch MD Work Phone: Start: 62-77-8726Gigux shoulder complete minimum 2 viewsGrant T Oniel MARKETING OPERATIONS ANALYST Work Phone: Start: 02-07-2024H/O: artificial jointPresence of artificial shoulder joint, rightGrant Oniel MARKETING OPERATIONS ANALYST Work Phone: Start: 07-04-2023H/O: artificial jointPresence of artificial shoulder joint, leftGrant Oniel MARKETING OPERATIONS ANALYST Work Phone: Start: 57-59-5159Klnnckxsdxbso of median nerveMD Will Tim Work Phone: Start: 13-95-3729U-ray of cervical spineMD Will Tim Work Phone: Start: 48-21-3827FpqfdslhwflQjysp Engle ONEL Work Phone: Plan of Treatment DateCare ActivityDetailAuthorStart: 31-58-5461Gbhkwremq for malignant neoplasm of colonNOMS HealthcareStart: 09-66-1318Gbrjquybr for malignant neoplasm of colonNOMS HealthcareStart: 70-82-6090Kdtrelts screeningDiabetes: Retinopathy ScreeningNOMS HealthcareStart: 93-85-6072Woynqgwmp for malignant neoplasm of breastMammogramNOMS HealthcareStart: 88-00-7224Enarl screening for protein Diabetes: Urine Protein ScreeningNOSD HealthcareStart: 05-19-2026Medicare Annual Wellness (AWV)Medicare Annual Wellness (AWV)NOM HealthcareStart: 08-18-2025 End: 84-99-4010Ftwxjyq encounter jefrzggvn85/02/2025 3:00 PM EST Procedure Visit [facility] Vicente Podiatry [address] [facility] [facility] [place] [address] Osei Arevalo DPM [address] [place] [address] [facility] Vicente PodiatryStart: 90-85-5257Aurqy screening for proteinDiabetes: Urine Protein ScreeningNOSD HealthcareStart: 05-19-2025 End: 55-20-0534Rcoxvsb encounter procedureNOMS PODIATRYComment on above: ArrivedStart: 96-25-9990Nnasayqam vaccinationInfluenza Vaccine (#1)NOM HealthcareStart: 97-31-7404Xpcinphfcn A1c measurementDiabetes: Hemoglobin A1C NOM HealthcareStart: 03-18-2025 End: 45-45-2680Nxnfujj encounter nufswjpnk48/02/2025 2:00 PM EDT Office Visit [facility] [address] [place] [address] Will Tim MD [address] [place] [address] (Fax) Recurrent major depressive disorder, in partial remission ; Impaired glucose tolerance testNOMS CI FM 100Comment on above:Recurrent major depressive disorder, in partial remission ; Impaired glucose tolerance testStart: 02-12-2025 End: 42-47-2523Afyfejm encounter vxakosdpo22/29/2025 11:00 AM EDT [facility] [address] [place] [address] Will Tim MD [address] [place] [address] [facility] 100Start: 02-11-2025 End: 31-61-9138Icwepbn encounter procedureNOFULTON MEDICAL CENTER- FULTON PODIATRYComment on above: ArrivedStart: 02-10-2025 End: 69-03-4567Tpflqkn encounter iwpkcfuue07/27/2025 2:30 PM EDT Procedure Visit [facility] POD[facility] [address] [place] [address] Osei Arevalo DPM [address] [place] [address] [facility] PODIATRYStart: 05-21-2025Medicare Annual Wellness (AWV)Medicare Annual Wellness (AWV)NOMS HealthcareStart: 45-25-9380Bxfxwkkaiulo Vaccine: 65+ Years (3 of 3 - PPSV23 or PCV20)Pneumococcal Vaccine: 65+ Years (3 of 3 - PPSV23 or PCV20)NOM HealthcareComment on above:Postponed from 01/14/2022 (Patient Refused)Start: 02-02-2025 End: 41-23-2998DEH Skeletal system Views for bone densityDEXA bone density Imaging Routine Screening for osteoporosis Menopause Expected: 02/02/2025, Expires: 02/02/2026NOSD HealthcareComment on above:Expected: 02/02/2025, Expires: 02/02/2026Start: 02-02-2025 End: 29-57-7677DD Breast - bilateral ScreeningBilateral screening mammogram Imaging Routine Screening mammogram, encounter for Expected: 02/02/2025, Expires: 04/04/2026[facility] Work Phone: Comment on above:Expected: 02/02/2025, Expires: 04/04/2026Start: 02-02-2025 End: 95-85-3481Jfbvwhr encounter procedureNOMS CI FM 100Comment on above: Encounter for Medicare annual wellness exam; Advance directive in chart; Encounter for screening for other disorder; Screening for alcohol problem; Polypharmacy; Obesity (BMI 30.0-34.9); Screening mammogram, encounter for; Screening for osteoporosisStart: 01-09-2025 End: 36-34-6365yrhxfmxgup43/25/2025 2:00 PM EDT Treatment [facility] [address] [facility] [address] [place] [address] Jaimee Velazquez, OPTICAL FABRICATION TECHNICIAN NOMS CI PTStart: 01-05-2025 End: 74-32-4818gnsvnewdbrAESW CI PTComment on above:Chronic pain syndrome (Primary Dx); Right leg weakness; Neuropathy; Right foot painStart: 01-01-2025 End: 67-91-4016cozqxgxfkaOBWT CI PTComment on above:ArrivedStart: 12-30-2024 End: 82-18-4826ilrbqmvvap47/15/2025 2:00 PM EDT Treatment [facility] [address] [facility] [address] [place] [address] Jaimee Velazquez, OPTICAL FABRICATION TECHNICIAN ArrivedNOMS CI PTComment on above:ArrivedStart: 12-25-2024 End: 95-57-3130lxmfnyamuf42/10/2025 2:00 PM EDT Treatment [facility] [address] [place] [address] Audrey Velazquezissa, OPTICAL FABRICATION TECHNICIAN NOMS CI PTStart: 12-22-2024 End: 36-87-7181gaujjohynk50/07/2025 7:00 AM EDT Treatment [facility] [address] [place] [address] Jaimee Velazquez, OPTICAL FABRICATION TECHNICIAN NOMS CI PTStart: 12-19-2024 End: 78-84-2406ocyninxwavEGXU CI PTComment on above:ArrivedStart: 12-16-2024 End: 53-72-1922yaanruzseyRULQ CI PTComment on above:ArrivedStart: 12-10-2024 End: 20-00-2350apvtgrbkwn28/26/2025 2:00 PM EDT Treatment [facility] [address] [place] [address] Jaimee Velazquez, IDALIA ArrivedNOMS CI PTComment on above:ArrivedStart: 11-27-2024 End: 26-09-5727Okzcawl encounter procedureNOMS CI FM 100Start: 11-24-2024 End: 55-53-4824Hzueoix encounter quusronyf92/10/2025 9:00 AM EDT Office Visit [facility] [address] [place] [address] Will Tim MD [address] [place] [address] [facility] CI FM 100Start: 11-18-2024 End: 66-50-2841Hootmzn encounter /04/2025 9:00 AM EST Office Visit [facility] [address] [place] [address] Vivek Engle, MARKETING OPERATIONS ANALYST [address] [facility] [place] [address] NOMS CI ORTHOPAEDICSStart: 11-05-2024 End: 95-01-1472Ripreme encounter procedureNOMS FH PODIATRYComment on above: ArrivedStart: 10-27-2024 End: 73-19-2801EJG 1 ExtremeityEMG 1 [facility] Neurology Routine Right foot pain Right leg weakness Limping Artificial knee jointpresent, right Right leg swelling Expected: 10/27/2024 (Approximate), Expires: 10/27/2025[facility] Healthcare Work Phone: Comment on above:Expected: 10/27/2024 (Approximate), Expires: 10/27/2025Start: 10-27-2024 End: 04-81-7322Livjlsy encounter jreqhvcky49/10/2025 2:00 PM EST Office Visit [facility] [address] [place] [address] Will Tim MD [address] [place] [address] (Fax) ArrivedNOMS CI FM 100Comment on above: ArrivedStart: 39-31-5662Ywkcojfo screeningDiabetes: Retinopathy ScreeningNOMS HealthcareStart: 64-79-9241Ntfmwwfmfd A1c measurementDiabetes: Hemoglobin A1C NOMS HealthcareStart: 08-12-2024 End: 00-44-1299Pjqhkvl encounter hrlppcqve84/26/2024 9:00 AM EST Office Visit [facility] [address] [place] [address] Alexis Magana DO [address] [place] [address] NOM[facility] CI ORTHOPAEDICSStart: 08-05-2024 End: 18-21-0633Ckeouae encounter procedureNOMS FH PODIATRYComment on above: ArrivedStart: 07-15-2024 End: 83-88-4014Sxxygoi encounter zkrdijfuq97/29/2024 2:30 PM EDT Office Visit [facility] [address] [address] Alen Arshad MD [address] [facility] [address] [place] [address] GENSStart: 07-03-2024 End: 25-72-0658Vhsnpli encounter procedureNOMS CI FM 100Comment on above: Essential hypertension (CMS/HCC); Hypertensive nephropathy (CMS/HCC); Insulin resistance; Mixed hyperlipidemia (CMS/HCC); Encounter for examination following treatment at hospital; Polypharmacy; Obesity (BMI 30.0-34.9)Start: 07-02-2024 End: 82-48-6274Agyaayf encounter bkkipfmew82/16/2024 12:30 PM EDT Procedure Visit [facility] EXT DEP Alen Arshad MD [address] [facility] 150 [place] [address] NOMS EXT DEPStart: 06-19-2024 End: 53-64-9275Lpmidgg encounter cncsnbdwi30/03/2024 8:00 AM EDT Office Visit [facility] 100 [address] [facility] 100 [place] [address] Will Tim MD [address] [facility] [place] [address] [facility] CI FM 100Start: 05-23-2024 End: 96-32-5373Uwfhcnb encounter qbzvyywpn35/06/2024 11:15 AM EDT Consult [facility] [address] [address] Alen Arshad MD [address] GENSStart: 01-77-8788Gcetljaka vaccinationInfluenza Vaccine (#1) NOMS HealthcareStart: 05-13-2024 End: 88-61-4663Gksalif encounter ckljvfoix25/27/2024 9:00 AM EDT Office Visit [facility] [address] [facility] [address] [place] [address] Vivek Engle, MARKETING OPERATIONS ANALYST [address] [place], [place] [address] S/P reverse total shoulder arthroplasty, right; Osteoarthritis of right glenohumeral jointNOMS CI ORTHOPAEDICSComment on above: S/P reverse total shoulder arthroplasty, right; Osteoarthritis of right glenohumeral jointStart: 01-21-2024 End: 08-61-2688Wzzkaep encounter yzuvbdjwa70/06/2024 3:00 PM EDT Procedure Visit [facility] [address] [place] [address] Osei Arevalo, DPM [address] [place] [address] NOMS PODIATRYStart: 12-20-2023 End: 44-31-3506Exrouck encounter tiklylerd54/04/2024 2:00 PM EDT Office Visit [facility] [address] [place] [address] Will Tim MD [address] [place] [address] NOMS PAUL FMStart: 11-06-2023 End: 67-44-7361Mtbxdif encounter xhxucmqmp16/20/2024 10:00 AM EST Office Visit [facility] [address] [place] [address] Alexis Magana, DO [address] [place] [address] NOMS ORTHOPAEDICSStart: 10-29-2023 End: 19-61-2419Mlgrqac encounter zkjumyrqx67/12/2024 10:00 AM EST Procedure Visit [facility] EXT DEP Alexis Magana, DO [address] [place] [address] NOMS EXT DEPStart: 08-21-2023 Medicare Annual Wellness (AWV)Medicare Annual Wellness (AWV)[facility] Start: 55-50-2542Cjhih screening for proteinDiabetes: Urine Protein Screening NOM HealthcareStart: 97-25-3238Obxnihrdyt A1c measurementDiabetes: Hemoglobin M1KPEZJ HealthcareStart: 35-72-1840Ivhut screening for proteinDiabetes: Urine Protein ScreeningNOSD HealthcareStart: 07-26-2022 End: 78-15-7000TzjjrlzmcSelect Medical Specialty Hospital - Columbustart: 86-05-2193Slngeruzq for malignant neoplasm of breastMammogramNOMS HealthcareStart: 01-14-2022 Pneumococcal Vaccine: 65+ Years (3 - PPSV23 or PCV20)Pneumococcal Vaccine: 65+ Years (3 - PPSV23 or PCV20)NOMS HealthcareStart: 47-21-2907Haelpvwqf for malignant neoplasm of colonNOMS HealthcarePatient referralMercy Health [facility] Hospital Work Phone: XR Lumbar spine ViewsMagruder Memorial Hospital XR Pelvis 1 or 2 [facility] Immunizations Immunization DateImmunizationNotesCare XixuxibiIwkrlril35-55-7284UMKVBAI - Respiratory syncytial virus (RSV), vaccine, bivalent, protein subunit RSV prefusion F, diluent reconstituted, 0.5 mL, PFWill Tim MD Work Phone: [facility]ettTmgnzmxhga91-58-6422wnckmvxgr, high dose seasonal, preservative-freeWill Tim MD Work Phone: [phone] [place], [place] [address]Oniynfztkn54-74-7753Veprayjpqxxw Conjugate PCV 20 Will Tim MD Work Phone: [facility]ettIchqpmfrjx12-95-6870rmhdjgelr virus vaccine, unspecified formulationWill Tim MD Work Phone: [phone] [place], [place] [address]Zlovcaclzx44-29-6142evfmxkuou virus vaccine, unspecified formulationAlext Oniel MARKETING OPERATIONS ANALYST Work Phone: [facility]ettOtnntfsxpt96-51-7161Rlyhnkjub, Seasonal, Quadrivalent, AdjuvantedGrant Oniel MARKETING OPERATIONS ANALYST Work Phone: [facility]ettUpidjhemon32-49-3070ZCHYI-81 mRNA Bivalent Booster (Pfizer)MD Will Tim Work Phone: [phone] [place], [place] [address]10-12-2022Influenza, High-dose Seasonal, Quadrivalent, Preservative FreeGrant Oniel MARKETING OPERATIONS ANALYST Work Phone: [facility]ettMumfutpbcs96-99-7924apwvkqsxg virus vaccine, unspecified formulationGrant Oniel MARKETING OPERATIONS ANALYST Work Phone: [facility]ettVefgvyyhqr54-79-9487pkzmeochb, injectable, quadrivalent, preservative freeGrant Oniel MARKETING OPERATIONS ANALYST Work Phone: [phone] [place], [place] [address]Kpskgvmefg67-96-5367fiowcynqw virus vaccine, unspecified formulationGrant Engle MARKETING OPERATIONS ANALYST Work Phone: [phone] [place], [place] [address]Kqvcgkigoh45-94-2149ftrezfcxt, injectable, quadrivalent, preservative freeGrant Engle MARKETING OPERATIONS ANALYST Work Phone: [phone] [place], [place] [address]Zmhxjstipm37-82-1938MNBGR-36 mRNADax (Pfizer)MD Will Tim Work Phone: [facility]01-19-2021COVID-19 mRNADax (Pfizer)MD Will Tim Work Phone: [facility]10-01-2020influenza virus vaccine, unspecified formulationGrant Engle MARKETING OPERATIONS ANALYST Work Phone: [phone] [place], [place] [address]Hfedygojji04-53-2769gdzuthmio, high dose seasonal, preservative-freeGrant Engle MARKETING OPERATIONS ANALYST Work Phone: [phone] [place], [place] [address]Ypwcmxgmsq17-52-2756qwllcuhxy virus vaccine, unspecified formulationGrant Engle MARKETING OPERATIONS ANALYST Work Phone: [phone] [place], [place] [address]Quxzozgokh01-52-4636tzykbzsdk, injectable,quadrivalent, preservative free, pediatricGrant Engle MARKETING OPERATIONS ANALYST Work Phone: [phone] [place], [place] [address]Disgshrmvz41-59-0084foecktnws virus vaccine, unspecified formulationGrant Engle MARKETING OPERATIONS ANALYST Work Phone: [phone] [place], [place] [address]Byoxbbepsd62-36-4753Vhvnnrdy trivalent influenza vaccine, adjuvanted, preservative freeGrant Engle MARKETING OPERATIONS ANALYST Work Phone: [phone] [place], [place] [address]Tmoshywgds38-16-5277wnehjahtn, injectable, quadrivalent, preservative freeGrant Engle MARKETING OPERATIONS ANALYST Work Phone: [phone] [place], [place] [address]Lyhmpyedxa94-67-0432jfovjyeunjfz conjugate vaccine, 13 valentGrant Engle MARKETING OPERATIONS ANALYST Work Phone: [phone] [place], [place] [address]Kkbnsusbnl45-39-4404vdidbkwat virus vaccine, unspecified formulationGrant Engle MARKETING OPERATIONS ANALYST Work Phone: [phone] [place], [place] [address]Flmpvbbccu21-31-8217zfhnvbzar, high dose seasonal, preservative-freeGrant Engle MARKETING OPERATIONS ANALYST Work Phone: [phone] [address] StreetFimikacavu37-51-8696bqupzvhjdrth polysaccharide vaccine, 23 valentGrant Engle MARKETING OPERATIONS ANALYST Work Phone: [phone] [place], [place] [address]Zukdnwwude63-45-8911ejobafbei virus vaccine, unspecified formulationGrant Engle MARKETING OPERATIONS ANALYST Work Phone: [phone] [place], [place] [address]Weivgkhcwj06-70-9021fmplpwren, injectable, quadrivalent, preservative freeGrant Engle MARKETING OPERATIONS ANALYST Work Phone: [phone] [place], [place] [address]Qgzpwycwsl59-94-9290msgnbc vaccine, liveGrant Engle MARKETING OPERATIONS ANALYST Work Phone: [phone] [place], [place] [address]Sgdcfibkps47-77-5053lmclkumlanzn polysaccharide vaccine, 23 valentGrant Engle MARKETING OPERATIONS ANALYST Work Phone: [phone] [place] [address] Payers DatePayer CategoryPayerPolicy [id number] [id number] 1.2.840.908487.1.13.693.2.7.3.585462.86524-80-1037[employer] Insurance 1.2.840.430219.1.13.693.2.7.3.418285.315 [id number] p23lscgk-172s-08cz-e33l-[id number] 2.16.840.1.500077.3.579.2.27922-31-9299Ounszlz7397912 2.16.840.1.069885.3.579.2.70069-23-0127Qjdbsbb0142827 2.16.840.1.865468.3.579.2.08237-26-1970Ytxagqc1050434 2.16.840.1.268986.3.579.2.60303-21-1365Ykvuowe6879440 2.16.840.1.540746.3.579.2.22689-97-3868Apdmoto0997198 2.16.840.1.144339.3.579.2.52764-06-7787Gtafwbs54377644 2.16.840.1.094634.3.579.2.85640-22-2998Hmtqekz17001639 2.16840.1.423345.3.579.2.62197-30-6958Iclzkma82970314 2.16840.1.226602.3.579.2.90021-27-3893Vrmbuak85450263 2.16.840.1.179222.3.579.2.02981-86-5982Uykkrrm42302929 2.16840.1.247855.3.579.2.36298-76-4447Yrytsiw49216303 2.16840.1.607684.3.579.2.12558-60-4300Xyovlli14628270 2.16.840.1.024427.3.579.2.59133-52-7575Cjvrqye58084426 2.16.840.1.085696.3.579.2.71567-42-8083Bnqfnln26010897 2.16.840.1.493346.3.579.2.18702-82-2711Amqsdhj05920911 2.16.840.1.154975.3.579.2.44374-45-5456Truvjri88032069 2.16.840.1.419880.3.579.2.38964-59-0988Tzhojdb216014148 2.16.840.1.731799.3.579.2.06472-79-7813Bqvqwmi25471335 2.16.840.1.243941.3.579.2.813000-31-4862Ckviigi34432327 2.16.840.1.742264.3.579.2.002211-73-0060Ksirkxe0618462 2.16.840.1.306636.3.579.2.691115-80-2396Babwaar1889872 2.16840.1.874843.3.579.2.401359-28-7757Ivnheio4240659 2.16.840.1.029997.3.579.2.619175-60-5416Sexetqt6127021 2.16.840.1.530609.3.579.2.230151-82-2538Pvgwkbz2310899 2.16.840.1.331286.3.579.2.235723-48-8874Rhoegel3228342 2.16840.1.597622.3.579.2.085078-09-5360Schyklx8442772 2.16.840.1.178701.3.579.2.469576-25-4158Bveadxo5022263 2.16.840.1.946066.3.579.2.963743-94-2661Gwcuorx6627862 2.16.840.1.719012.3.579.2.166425-80-0932Pshoxee5324259 2.16840.1.861039.3.579.2.268240-08-7338Frlalqi2665407 2.0.1.108881.3.579.2.008305-60-4924Vgjcuxc4348749 2.0.1.309740.3.579.2.757016-81-8258Axbfxms4421639 2.0.1.170506.3.579.2.030316-32-8512Hsdjhlp1360245 2..1.446586.3.579.2.949904-13-5130Qgkpiwd9695348 2..1.229651.3.579.2.073210-92-0439Dyzdbnd8480628 2..1.911182.3.579.2.503872-43-0052Ckuhchj4725513 2..1.241355.3.579.2.449649-49-4076Isduvem3783367 2..1.693943.3.579.2.781556-61-4801Fzifxvn8683469 2..1.298304.3.579.2.376537-57-5068Slevatt2980443 2..1.431427.3.579.2.235349-84-2356Dhcpasf4983572 2..1.322414.3.579.2.522179-47-8719Vmeiplx7245070 2.0.1.193042.3.579.2.108661-99-3707Wkpkztj4410807 2.840.1.548694.3.579.2.0359Cfxjtrx94557692 2.0.1.270555.3.579.2.531 Social History DateTypeDetailFacilityTobacco smoking status NHISUnknown if ever smokedMercy Health [facility] Hospital Work Phone: Start: 94-53-8582Ehl [facility]: 10-22-2023 End: 02-93-6252Atk Assigned At [facility] [employer] Other start: 07-12-2022 End: 90-57-7923Pnntrzp smoking status NHISSmoker (finding)[facility]: 08-23-2023 End: 19-68-2796Zftwfka smoking status NHISSmokes tobacco dailyCox Monett History of tobacco useCigarette SmokerHIGHLAND RIDGE [facility] HealthcareStart: 08-23-2023 End: 62-94-4407Sbpyefnabn smoked current (pack per day) - Reported0.5[facility] HealthcareStart: 10-22-2023 End: 07-22-0561Fobmdnw intakeEx-drinker (finding)[facility] HealthcareStart: 07-19-3780Ffqckipqr55NNCD HealthcareStart: 58-14-0522Xaicbbi Comment6-10 cigs/dayNOSD HealthcareStart: 79-32-0543Bzbxqpq Commentcaffeine: 2-3 cups per dayHIGHLAND RIDGE HOSPITAL HealthcareStart: 41-81-7034Sbj Assigned At BirthNot on fileHIGHLAND RIDGE HOSPITAL HealthcareSexFemale (finding)[facility] Goals DatePatient GoalDesired Activity/State Functional Status UrqxDgrnrpuajiUsqqowXcutgzoh58-09-1222Smsnipn Health Questionnaire 2 item (PHQ- 2) [Reported][facility] Clinical Notes 05-30-2022 to 05-19-2025 Note Date & VpglJjkeNrsyoaro73-58-7172 History of Present illness Narrative* Osei Arevalo [...] CARPAL TUNNEL RELEASE Right 07/26/2022 Dr Garcia, [facility] [place] HYSTERECTOMY IR JOINT ASPIRATION Right Arthrocentesis of the right knee joint AK KNEE SCOPE,DIAGNOSTIC Right Dr. Cardona [place] MANIPULATION KNEE JOINT UNDER GENERAL ANESTHESIA Right [...] utilizing a nail nipper and electric bur glaze grinder without incident. I have discussed the [...] understanding. Osei Arevalo DPM documented in this encounterCox MonettYxxolyihwi30-42-9217 Evaluation note* Diagnosis Onset Date Resolution Status Admit Date Lumbar stenosis acuteJuly 2024 8:18amSpondylolisthesis, lumbosacral regionacuteJuly 2024 8:18am [facility] Work Phone: 1(396) 293-340807-24-2025 Evaluation note* Diagnosis Onset Date Resolution Status Admit Date Lumbar stenosis acuteJuly 2024 8:18amSpondylolisthesis, lumbosacral regionacuteJuly 2024 8:18amLumbar stenosisacuteAugust 2024 9:14amSpondylolisthesis, lumbosacral regionacuteAugust 2024 9:14am [facility] Work Phone: 1(668) 949-166907-02-2025 History of Present illness Narrative* Will Tim [...] establish both winter and summer levels in [place]. We have discussed the proper type of [...] along with her duloxetine. documented in this encounterCox MonettCnqmmsxjoj51-28-0244 History of Present illness Narrative* Will Tim [...] for cardiovascular disease. documented [facility] this [facility]05-28-2025 History of Present illness Narrative* Osei [...] CARPAL TUNNEL RELEASE Right 07/26/2022 Dr Garcia, [facility] CHOLE[place]ST[facility] HYSTERECTOMY IR JOINT ASPIRATION Right Arthrocentesis of the right knee joint AK KNEE SCOPE,DIAGNOSTIC Right Dr. Cardona [place] MANIPULATION KNEE JOINT UNDER GENERAL ANESTHESIA Right [...] utilizing a nail nipper and electric bur glaze grinder without incident. I have discussed the [...] understanding. Osei Arevalo DPM documented in this encounterCox MonettDgtmnbauth11-53-7731 History of Present illness Narrative* Will Tim [...] Yes Vision Screening: Yes, patient sees regular barker operator/gore seamer Hearing Screening: Not done Cognitive Screening Self [...] arm Hyperlipidemia (CMS/HCC) Insulin resistance Postherpetic neuralgia ([facility]CC) Primary osteoarthritis of left knee Primary osteoarthritis of right knee Psoriasis (a type of skin inflammation) ([facility]) RA (rheumatoid arthritis) ([facility]) Reactive hypoglycemia Unspecified rotator cuff tear or rupture of left shoulder, not specified as traumatic Unspecified rotator cuff tear or rupture of right shoulder, not specified as traumatic SURGICAL HISTORY: Past Surgical History: Procedure Laterality Date APPENDECTOMY CARPAL TUNNEL RELEASE Right 07/26/2022 Dr Garcia, [facility] [place]LE[place] HYSTERECTOMY IR JOINT ASPIRATION Right Arthrocentesis of the right knee joint AK KNEE SCOPE,DIAGNOSTIC Right Dr. Cardona [place] MANIPULATION KNEE JOINT UNDER GENERAL ANESTHESIA Right [...] score (Roge POPE, et al., 2019, 2020 [employer]) returns the percentage [...] lasted approximately 5-10 minutes documented in this encounterCox MonettVeervjhwsd03-81-7627 History of Present illness Narrative* Michela Campos, [...] quite a bit throughout the day. Precautions: [place], bilateral TKA, fall risk Subjective: Pt states [...] instructed in home exercise program. - met Recovery Room Nurse Goals: To be met in 10 weeks [...] not met Discharge PT. documented in this encounterCox MonettBchzikfkbf68-93-4223 History of Present illness Narrative* Osei Arevalo, [...] CARPAL TUNNEL RELEASE Right 07/26/2022 Dr Garcia, [facility] [place]LE[place] HYSTERECTOMY IR JOINT ASPIRATION Right Arthrocentesis of the right knee joint AK KNEE SCOPE,DIAGNOSTIC Right Dr. Cardona [place] MANIPULATION KNEE JOINT UNDER GENERAL ANESTHESIA Right 02/09/2021 Dr Magana REVERSE TOTAL SHOULDER ARTHROPLASTY Right 10/29/2023 Dr Magana ROTATOR CUFF REPAIR Left TONSILLECTOMY TOTAL KNEE ARTHROPLASTY 07/21/19 Left, 11/10/20 Right - Dr Magana TOTAL SHOULDER ARTHROPLASTY Left 04/19/2023 Dr Seregy clifton Family History Family History Problem Relation [...] utilizing a nail nipper and electric bur glaze grinder without incident. I have discussed the [...] understanding. Osei Arevalo DPM documented in this encounterCox MonettKjzgzphxmn87-47-6048 History of Present illness Narrative* Will Tim [...] foot pain (Primary) She is seeing her stock driver next week for nail hygiene and maintenance. [...] treatment with physical therapy and letting the stock driver do the injectionversus proceeding to try and [...] involving multiple sites with positive rheumatoid factor ([facility]) Comorbid condition certainly contributing to and complicating diagnosis. documented [facility]02-03-2025 Telephone encounter Note* Telephone Encounter - Will Tim MD - 10/20/2024 3:31 PM EST Prescription sent [facility]ettVljpdtndfp44-69-1168 Miscellaneous Notes* Telephone Encounter - Will Tim MD - 10/20/2024 3:31 PM EST Prescription sent * Telephone Encounter - Yolie Avitia - 10/20/2024 2:57 PM EST Sonia called, she stated she is out of refills on her Atorvastatin. She stated she was not sure why because everything else, she had plenty of. She is asking for a refill to be sent to [facility] mail in for her. documented [facility]02-03-2025 Telephone encounter Note* Telephone Encounter - Yolie Avitia - 10/20/2024 2:57 PM EST Sonia called, she stated she is out of refills on her Atorvastatin. She stated she was not sure why because everything else, she had plenty of. She is asking for a refill to be sent to [facility] mail in for her. [facility]ettLrkzmqvbxu81-95-6555 History of Present illness Narrative* Alexis Hawkins Izzy, DO - 08/12/2024 9:00 AM EST Images from the original note were not included. HISTORY OF PRESENT ILLNESS: iDsha De La Garza is an 74 y.o. [...] mass index (BMI) of 40.0-44.9 in adult ([facility]) Carpal tunnel syndrome Dermatomyositis ([facility]) Diabetes mellitus ([facility]) Fibrosis of right knee joint GERD (gastroesophageal reflux disease) Glucose intolerance (impaired glucose tolerance) History of being hospitalized 08/2017 cellulitis, left arm Hyperlipidemia ([facility]) Insulin resistance Postherpetic neuralgia ([facility]) Primary osteoarthritis of left knee Primary osteoarthritis of right knee Psoriasis (a type of skin inflammation) ([facility]) RA (rheumatoid arthritis) ([facility]) Reactive hypoglycemia Unspecified [...] questions. Aric Magana D.O. documented in this encounterCox MonettZrbjxonpbz45-64-5257 History of Present illness Narrative* Osei Arevalo, [...] CARPAL TUNNEL RELEASE Right 07/26/2022 Dr Garcia, [facility] [place]LE[place] HYSTERECTOMY IR JOINT ASPIRATION Right Arthrocentesis of the right knee joint AK KNEE SCOPE,DIAGNOSTIC Right Dr. Cardona [place] MANIPULATION KNEE JOINT UNDER GENERAL ANESTHESIA Right [...] polyneuropathy associated with type 2 diabetes mellitus ([facility]) E11.42 4. Primary osteoarthritis of left ankle M19.072 5. Primary osteoarthritis of right ankle M19.071 Patient was examined and evaluated. 9 toenails were debrided in length and thickness today utilizing a nail nipper and electric bur glaze grinder without incident. I have discussed the [...] Osei Arevalo DPM [facility]10-[facility] History of Present illness Narrative* Alen [...] require another colonoscopy. [facility]10-17-2024 History of Present illness Narrative* Will [...] Flowsheet Row Patient Outreach from 07/01/[address] [facility] with Jennifer Desai [facility] Information ED, Hospital or Half-Way Facility Discharge? ED Patient has been contacted within 1 week of being seen in the ED Yes Diagnosis Left Jaw Pain/ TMJ Discharge Date 06/27/24 Discharged To: Home Setting Discharge Hospital [facility] Engagement Call Start Time 1535 Admission [...] Wrap Up Additional Comments Pt presented to [facility] ER on [facility]/27 with left jaw pain. [...] steroid intervention. I talked to her about fsic-nru-rytrmdl bite guards for nighttime. 8. Encounter for [...] transition of care note is reviewed. a quvx-uu-geqj evaluation is done today. Medical decision making [...] could do chair exercises. documented in this encounterCox MonettHfjczdbcnj37-26-7141 History of Present illness Narrative* Will Tim [...] orders from a preventative aspect. She will change manager to these once she has the [...] frequency of further recurrences. documented in this encounterCox MonettVbhbblotfl25-19-6424 Telephone encounter Note* Telephone Encounter - Vanda Wheatley - 06/02/2024 12:45 PM EDT Okay she wants to know if that was sent to [facility] in [place]? [facility]ettDqklobktpb20-82-4260 Miscellaneous Notes* [facility] - [facility] - 06/02/2024 12:45 PM EDT Okay she wants to know if that was sent to [facility] in [place]? * Telephone Encounter - [facility] - 06/02/2024 10:43 AM EDT Patient called stating she is having bad foot pain and this week she can't get in for a appointment, does this patient need to be seen before you prescribe her prednisone? documented in this encounterCox MonettLtxlrolkde99-44-1126 Telephone encounter Note* Telephone Encounter - [facility]ose [facility] - 06/02/2024 10:43 AM EDT Patient called stating she is having bad foot pain and this week she can't get in for a appointment, does this patient need to be seen before you prescribe her prednisone? [facility]ettUrmbbkfful63-74-3085 History of Present illness Narrative* Alen Rausch [...] mass index (BMI) of 40.0-44.9 in adult ([facility]) Carpal tunnel syndrome Dermatomyositis ([facility]) Diabetes mellitus ([facility]) Fibrosis of right knee joint GERD (gastroesophageal reflux disease) Glucose intolerance (impaired glucose tolerance) History of being hospitalized 08/2017 cellulitis, left arm Hyperlipidemia ([facility]) Insulin resistance Postherpetic neuralgia ([facility]) Primary osteoarthritis of left knee Primary osteoarthritis of right knee Psoriasis (a type of skin inflammation) ([facility]) RA (rheumatoid arthritis) ([facility]) Reactive hypoglycemia Unspecified [...] CARPAL TUNNEL RELEASE Right 07/26/2022 Dr Garcia, [facility] [place]LE[place] HYSTERECTOMY IR JOINT ASPIRATION Right Arthrocentesis of the right knee joint AK KNEE SCOPE,DIAGNOSTIC Right Dr. Cardona [place] MANIPULATION KNEE JOINT UNDER GENERAL ANESTHESIA Right [...] colonoscopy in 10 years. documented in this encounterCox MonettCkthkawcaf92-83-3655 History of Present illness Narrative* Vivek Engle, MARKETING OPERATIONS ANALYST - 05/13/2024 9:00 AM EDT Images from [...] develop for requiring urgent evaluation. Vivek Engle APRN-LOCOMOTIVE MECHANIC documented in this encounterCox MonettOixfjsfulm71-77-7669 Note [id number]#1.00[facility]02-13-[address] MAGANA'S POST OPERATIVE SHOULDER [...] or concerns, please call the office at [phone]. 7. Follow up as scheduled.[facility] HospitalJvplqdeg37-92-6065 [facility] Clinical Discharge Summary PERSON INFORMATION Name DISHA DE LA GARZA Age 73 Years 1950 Sex FEMALE Language [place] PCP WILL TIM Marital Status Single Med Service Observation Acct# Arrival 10/29/2023 08:16:12 Visit Reason SURGERY - RIGHT REVERSE TOTAL SHOULDER - ARTHREX Acuity LOS 000 26:22 Address: [address] [place] [address] Comment: PROVIDER INFORMATION VITALS INFORMATION Vital Sign [...] Follow up: With: Address: When: TREY RICHMOND [address] [place] [address], [facility] [address] [place] [address] Business (1) 11/05/2023 11:30 AM With: Address: When: WILL TIM [address] [place] [address] [place] [address] Business (1) With: Address: When: Alexis Magana [address] [place] [address] [address] [place] [address] Business (1) 11/06/2023 10:00 AM DIAGNOSIS Arthritis of right glenohumeral joint Comment: JARRELL BULLOCK [facility]02-06-2024 Telephone encounter Note* Telephone Encounter - Vivek Engle NP - 10/23/2023 11:46 AM EST Post op pain rx. PDMP reviewed. [facility]ettHbjfktckmd23-88-2178 Miscellaneous Notes* Telephone Encounter - Vivek Engle NP - 10/23/2023 11:46 AM EST Post op pain rx. PDMP reviewed. documented in this encounterCox MonettAdbtuekipu00-49-4844 Evaluation note* Encounter Date Diagnosis Assessment Notes [...] needed Basis. Sutures were removed without difficulty [employer] Other 10-06-2022 Evaluation note* Encounter Date Diagnosis [...] without myelopathy or radiculopathy (ICD-10 - M47.812) [facility] [email or web address] Other 09-13-2022 NotePROCEDURE: Multiplanar, multisequence imaging including [...] and signed by Greg Vargas on 05/31/2022 0717NortF[facility] Hospital Medical SpecialistEvaluation noteNo assessment information availableFirelands Regional Medical Center Ctr Work Phone: Evaluation noteNo InformationNort [email or web address] Other evaluation note* Diagnosis Post-operative pain- Primary Other acute postoperative pain documented in this encounter [facility] HealthcareEvaluation note* Diagnosis Yeast dermatitis Polypharmacy Issue [...] acuteJuly 2024 8:18amSpondylolisthesis, lumbosacral regionacuteJuly 2024 8:18am [facility] Work Phone: Evaluation note* Diagnosis Onychomycosis- Primary Dermatophytosis of nail Onychodystrophy Other specified disease of nail Diabetic polyneuropathy associated with type 2 diabetes mellitus (HCC) documented in this encounter [facility] HealthcareHistory general Narrative - Reported* Type Description Date Medical History Hyperlipemia Medical HistoryDERMATOMYOSITISMedical HistoryPsoriasisMedical HistoryDiabetes Surgical HistoryhysterectomySurgical HistoryappendectomySurgical History tonsillectomy and adenoidectomySurgical HistorycholecystectomySurgical History left knee neudfsrejrf16/4/19Surgical Historyright knee nerve block Hospitalization Historysee above surgical history [employer] Other Hospital Discharge instructions Additional Instructions DISCHARGE [...] appointment to see your physician in two weeks.[facility] Work Phone: Reivna for referral (narrative)No reason for referral information availableMercy Health St. [facility] Hospital Work Phone: Reason for visit Narrative* Rehabilitation - Outpatient (Routine) - AuthorizedSpecialtyDiagnoses / ProceduresReferred By ContactReferred To ContactPhysical Therapy Diagnoses Chronic pain syndrome Right foot pain Right leg weakness Neuropathy Procedures [place] OFFICE/OUTPATIENT [facility] 60 MINUTES Will Tim MD [address] [place] [address] Phone: tel: fax: Michela Campos PT Referral IDStatusReasonStart DateExpiration DateVisits RequestedVisits [id number] Specialty Services Required [facility] HealthcareReason for visit Narrative* Rehabilitation - Outpatient (Routine) - ClosedSpecialtyDiagnoses / ProceduresReferred By ContactReferred To Contact Physical Therapy Diagnoses Chronic pain syndrome Right foot pain Right leg weakness Neuropathy Procedures AK OFFICE/OUTPATIENT [facility] 60 MINUTES Will Tim MD [address] 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) Referral Organization [facility] urosurgery Referring Provider First Name Willie Referring Provider Last Name Radha Referring Provider Specialty Neurologica l Surgery Referred Organization [facility] Referred Provider Thomas Horner Referred Address [address] [place], [place],[address] Referred Provider Specialty Neurology Referral Priority Routine Additional Source Comments INFORMATION SOURCE (unrecogn ized section and content) DATE CREATED AUTHOR 04/06/2022 [facility] DATE CREATED AUTHOR AUTHOR'S ORGANIZ ATION 06/13/2022 [facility] 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 DATE CREATED AUTHOR AUTHOR'S ORGANIZ ATION 08/19/2022 [facility] DATE CREATED AUTHOR AUTHOR'S ORGANIZ ATION 02/03/2024 [facility] DATE CREATED AUTHOR AUTHOR'S ORGANIZ ATION 04/06/2025 [facility] DATE CREATED AUTHOR AUTHOR'S ORGANIZ ATION 04/10/2025 [facility] DATE CREATED AUTHOR AUTHOR'S ORGANIZ ATION 05/20/2025 [facility]ists [facility] DATE CREATED AUTHOR AUTHOR'S ORGANIZ ATION [...] MD Primary Care Provider Active Willie Garcia MDAbellevue hospital ProviderActiveTeam MemberRelationshipSpecialtyStart DateEnd Date Will Tim MD [address] [place] [phone] PCP - GeneralFamily Medicine02/08/23 Will Tim MD [address] [place] [address] (Fax) PCP - [facility]02/08/23 Alexis Magana DO [address] [place] [address] [place] [address] Referring PhysicianOrthopaedic Surgery10/25/23 Jeet Uriarte MD [address] [facility] Professional building [address] [place] [address] Referring PhysicianRheumatolog10/25/23 Osei Arevalo DPM [address] [place] [place] [address] Referring PhysicianPodiatry2Team MemberRelationshipSpecialtyStart DateEnd Date Will Tim MD [address] [place] [address] PCP - Generalmi Medicine02/08/23 Will Tim MD [address] [place] [address] (Fax) PCP - [facility]02/08/23 Alexis Magana DO [address] [place] [address] [place] [address] Referring PhysicianOrthopaedic Surgery10/25/23 Jeet Uriarte MD [address] [facility] Professional building [address] [place] [address] Referring PhysicianRheumatolog10/25/23 Osei Arevalo DPM [address] [place] [address] Referring PhysicianPodiatr10/25/23Team MemberRelationshipSpecialtyStart DateEnd Date Will Tim MD [address] [facility]arden[address] [place] [phone] PCP - GeneralFamily Medicine02/08/23 Will Tim MD [address] [place] [address] PCP - [facility]02/08/23 Alexis Magana DO [address] [place] [address] [address] Referring PhysicianOrthopaedic Surgery10/25/23 Jeet Uriarte MD [address] [facility] Professional building [address] [place] [address] Referring PhysicianRheumatolog10/25/23 Osei Arevalo DPM [address] [place] [address] Referring PhysicianPodiatr10/25/23Team MemberRelationshipSpecialtyStart DateEnd Date Will Tim MD [address] [place] [address] [facility] - [facility]/08/23 Will Tim MD [address] [place] [address] (Fax) PCP - [facility]02/08/23 Alexis Magana DO [address] [place] [address] Referring PhysicianOrthopaedic Surgery10/25/23 Jeet Uriarte MD [address] [facility] Professional building 1 [place] [address] Referring PhysicianRheumatolog10/25/23 Osei Arevalo DPM [address] [place] [address] Referring PhysicianPodiatr10/25/23Team MemberRelationshipSpecialtyStart DateEnd Date Will Tim MD [address] [place] [address] [facility] - [facility]02/08/23 Will Tim MD [address] [place] [address] (Fax) PCP - [facility]02/08/23 Alexis Magana DO [address] [facility] 150 [place] [address] Referring PhysicianOrthopaedic Surgery10/25/23 Jeet Uriarte MD [address] [facility] Professional building 1 [place] [address] Referring PhysicianRheumatolog10/25/23 Osei Arevalo DPM [address] [place], [place] [address] Referring PhysicianPodiatr10/25/23Team MemberRelationshipSpecialtyStart DateEnd Date Will Tim MD (Fax) PCP - GeneralFamily Medicine02/08/23 Will Tim MD 112 [facility] 100 [place] [address] (Fax) PCP - [facility]02/08/23 Alexis Magana DO [address] [facility] 150 [place] [address] Referring PhysicianOrthopaedic Surgery10/25/23 Jeet Uriarte MD [address] [facility] Professional building 1 [place] [address] Referring PhysicianRheumatolog10/25/23 Osei Arevalo DPM [address] [place], [place] [address] Referring PhysicianPodiatr10/25/23Team MemberRelationshipSpecialtyStart DateEnd Date Will Tim MD (Fax) PCP - GeneralFamily Medicine02/08/23 Will Tim MD [address] [place] [address] (Fax) PCP - [facility]02/08/23 Alexis Magana DO [address] [place] [address] Referring PhysicianOrthopaedic Surgery10/25/23 Jeet Uriarte MD [address] Professional [address] [place] [address] Referring PhysicianRheumatolog10/25/23 Osei Arevalo DPM [address] [place], [place] [address] [place], [place] [address] Referring PhysicianPodiatr10/25/23Team MemberRelationshipSpecialtyStart DateEnd Date Will Tim MD (Fax) [facility] - [facility]02/08/23 Will Tim MD [address] [place] [address] (Fax) PCP - [facility]02/08/23 Alexis Magana DO [address] [place] [address] Referring PhysicianOrthopaedic Surgery10/25/23 Jeet Uriarte MD [address] Professional [address] [place] [address] Referring PhysicianRheumatology2 Osei Arevalo DPM [address] [place] [address] Referring PhysicianPodiatry2Team MemberRelationshipSpecialtyStart End Will Tim MD (Fax) PCP - GeneralFamily Medicine02/08/23 Will Tim MD [address] [address] (Fax) PCP - [facility]02/08/23 Alexis Magana DO [address] [facility] 150 [place] [address] Referring PhysicianOrthopaedic Surgery10/25/23 Jeet Uriarte MD [address] [facility] Professional building 1 [place] [address] Referring PhysicianRheumatolog10/25/23 Osie Arevalo DPM [address] [place] [address] Referring PhysicianPodiatry2Team MemberRelationshipSpecialtyStart DateEnd Will Tim MD (Fax) PCP - GeneralFamily Medicine02/08/23 Will Tim MD [address] [address] (Fax) PCP - [facility]02/08/23 Alexis Magana DO [address] [facility] 150 [place] [address] Referring PhysicianOrthopaedic Surgery10/25/23 Jeet Uriarte MD [address] [facility] Professional [address] [phone] Referring PhysicianRheumatolog10/25/23 Osei Arevalo DPM [address] [place] [address] Referring PhysicianPodiatr10/25/23Team MemberRelationshipSpecialtyStart DateEnd Date Will Tim MD [address] [facility] [address] PCP - GeneralFamily Medicine02/08/23 Will Tim MD 521 [place] [address] PCP - [facility]02/08/23 Alexis Magana DO [address] [address] Referring PhysicianOrthopaedic Surgery10/25/23 Jeet Uriarte MD [address] [facility] Professional [address] [address] Referring PhysicianRheumatolog10/25/23 Osei Arevalo DPM [address] [place], [place] [address] Referring PhysicianPodiatr10/25/23Team MemberRelationshipSpecialtyStart DateEnd Date Will Tim MD [address] [place] [place] [address] PCP - GeneralFamily Medicine02/08/23 Will Tim MD [address] [place] [address] (Fax) PCP - [facility]02/08/23 Alexis Magana DO [address] [place] [address] Referring PhysicianOrthopaedic Surgery10/25/23 Jeet Uriarte MD [address] [facility] Professional building 1 [place] [address] Referring PhysicianRheumatolog10/25/23 Osei Arevalo DPM [address] [place] [place] [address] Referring PhysicianPodiatr10/25/23Team MemberRelationshipSpecialtyStart DateEnd Date Will Tim MD [address] [place] [address] [facility] - [facility]02/08/23 Will Tim MD [address] [place] [address] (Fax) PCP - [facility]02/08/23 Alexis Magana DO [address] [facility] 150 [place] [address] Referring PhysicianOrthopaedic Surgery10/25/23 Jeet Uriarte MD [address] [facility] 1 [place] [address] Referring PhysicianRheumatolog10/25/23 Osei Arevalo DPM [address] [place] [place] [address] Referring PhysicianPodiatr10/25/23Team MemberRelationshipSpecialtyStart DateEnd Date Will Tim MD (Fax) PCP - GeneralFamily Medicine02/08/23 Will Tim MD [address] [place] [address] (Fax) PCP - [facility]02/08/23 Alexis Magana DO [address] [place] [address] Referring PhysicianOrthopaedic Surgery10/25/23 Jeet Uriarte MD [address] [facility] Professional building 1 [place] [address] Referring PhysicianRheumatolog10/25/23 Osei Arevalo DPM [address] [place] [address] Referring PhysicianPodiatr10/25/23Team MemberRelationshipSpecialtyStart DateEnd Date Will Tim MD (Fax) PCP - GeneralFamily Medicine02/08/23 Will Tim MD [address] [place] [address] PCP - [facility]02/08/23 Alexis Magana DO [address] [place] [address] Referring PhysicianOrthopaedic Surgery10/25/23 Jeet Uriarte MD [address] [facility] 1 [place] [address] Referring PhysicianRheumatolog10/25/23 Osei Arevalo DPM [address] [place] [address] Referring PhysicianPodiatr10/25/23Team MemberRelationshipSpecialtyStart DateEnd Date Will Tim MD (Fax) PCP - Generalmi Medicine02/08/23 Will Tim MD [address] [place] [address] (Fax) PCP - [facility]02/08/23 Alexis Magana DO [address] [place] [address] Referring PhysicianOrthopaedic Surgery10/25/23 Jeet Uriarte MD [address] Professional building 1 [place] [address] Referring PhysicianRheumatolog10/25/23 Osei Arevalo DPM [address] [place] [address] Referring PhysicianPodiatry2Team MemberRelationshipSpecialtyStart DateEnd Date Will Tim MD (Fax) PCP - GeneralFamily Medicine02/08/23 Will Tim MD [address] [place] [address] (Fax) PCP - [facility]02/08/23 Alexis Magana DO [address] [place] [address] Referring PhysicianOrthopaedic Surgery10/25/23 Jeet Uriarte MD [facility] [address] [facility] Professional building [address] [place] [phone] Referring PhysicianRheumatolog10/25/23 Osei Arevalo DPM [address] [place] [address] Referring PhysicianPodiatry2Team MemberRelationshipSpecialtyStart DateEnd Date Will Tim MD (Fax) PCP - GeneralFamily Medicine02/08/23 Will Tim MD [address] [place] [address] (Fax) PCP - [facility]02/08/23 Alexis Magana DO [address] [place] [address] Referring PhysicianOrthopaedic Surgery10/25/23 Jeet Uriarte MD [address] [facility] Professional building 1 [place] [address] Referring PhysicianRheumatology2 Osei Arevalo DPM [address] [place] [place] [address] Referring PhysicianPodiatr10/25/23Team MemberRelationshipSpecialtyStart DateEnd Date Will Tim MD [address] [place] [address] PCP - [facility]02/08/23 Alexis Magana DO [address] [place] [address] Referring PhysicianOrthopaedic Surgery10/25/23 Jeet Uriarte MD [address] [facility] Professional building [address] [place] [phone] Referring PhysicianRheumatolog10/25/23 Osei Arevalo DPM [address] [facility] [place] [address] Referring PhysicianPodiatry2Team MemberRelationshipSpecialtyStart DateEnd Date Will Tim MD [address] [place] [address] PCP - [facility]02/08/23 Alexsi Magana DO [address] [place] [address] Referring PhysicianOrthopaedic Surgery10/25/23 Jeet Uriarte MD [address] [facility] Professional building [address] [place] [phone] Referring PhysicianRheumatology2 Osei Arevalo DPM [address] [facility] [place] [address] Referring PhysicianPodiatr10/25/23Team MemberRelationshipSpecialtyStart DateEnd Date Will Tim MD [address] [place] [address] (Fax) PCP - [facility]02/08/23 Alexis Magana DO [address] [place] [address] Referring PhysicianOrthopaedic Surgery10/25/23 Jeet Uriarte MD [address] [facility] Professional [address] [address] Referring PhysicianRheumatolog10/25/23 Osei Arevalo DPM [address] [facility] [place] [address] Referring PhysicianPodiatr10/25/23Team MemberRelationshipSpecialtyStart DateEnd Date Will Tim MD [address] [place] [address] PCP - [facility]02/08/23 Alexis Magana DO [address] [place] [address] Referring PhysicianOrthopaedic Surgery10/25/23 Jeet Uriarte MD [address] [facility] Professional building [address] [place] [phone] Referring PhysicianRheumatolog10/25/23 Osei Arevalo DPM [address] [place] [place] [address] Referring PhysicianPodiatr10/25/23Team MemberRelationshipSpecialtyStart DateEnd Date Will Tim MD [address] [facility] 100 [place] [address] (Fax) PCP - [facility]02/08/23 Alexis Magana DO [address] [place] [address] 150 [place] [address] Referring PhysicianOrthopaedic Surgery10/25/23 Jeet Uriarte MD [address] [facility] Professional building [address] [place] [phone] Referring PhysicianRheumatolog10/25/23 Osei Arevalo DPM [address] [place] [place] [address] Referring PhysicianPodiatr10/25/23Team MemberRelationshipSpecialtyStart DateEnd Date Will Tim MD [address] [facility] 100 [place] [address] PCP - [facility]02/08/23 Alexis Magana DO [address] [place] [address] Referring PhysicianOrthopaedic Surgery10/25/23 Jeet Uriarte MD [address] [facility] Professional building 1 [place] [address] Referring PhysicianRheumatolog10/25/23 Osei Arevalo DPM [address] [place] [place] [address] Referring PhysicianPodiatr10/25/23Team MemberRelationshipSpecialtyStart DateEnd Date Will Tim MD [address] [place] [address] (Fax) PCP - [facility]02/08/23 Alexis Magana DO [address] [facility] 150 [place] [address] Referring PhysicianOrthopaedic Surgery10/25/23 Jeet Uriarte MD [address] [facility] Professional building 1 [place] [address] Referring PhysicianRheumatolog10/25/23 Osei Arevalo DPM [address] [place] [place] [address] Referring PhysicianPodiatr10/25/23Team MemberRelationshipSpecialtyStart DateEnd Date Will Tim MD [address] [place] [address] PCP - [facility]02/08/23 Alexis Magana DO [address] [facility] 150 [place] [address] Referring PhysicianOrthopaedic Surgery10/25/23 Jeet Uriarte MD [address] [facility] Professional building 1 [place] [address] Referring PhysicianRheumatolog10/25/23 Osei Arevalo DPM [address] [place] [address] Referring PhysicianPodiatr10/25/23Team MemberRelationshipSpecialtyStart DateEnd Date Will Tim MD [address] [facility] 100 [place] [address] (Fax) [facility]02/08/23 Alexis Magana DO [address] [facility] 150 [place] [address] Referring PhysicianOrthopaedic Surgery10/25/23 Jeet Uriarte MD [address] [facility] Professional building 1 [place] [address] Referring PhysicianRheumatolog10/25/23 Osei Arevalo DPM [address] [place] [address] Referring PhysicianPodiatry2Team MemberRelationshipSpecialtyStart DateEnd Will Tim MD [address] [place] [address] (Fax) PCP - [facility]02/08/23 Alexis Magana DO [address] [place] [address] Referring PhysicianOrthopaedic Surgery10/25/23 Jeet Uriarte MD [address] [facility] Professional building 1 [place] [address] Referring PhysicianRheumatolog10/25/23 Osei Arevalo DPM [address] [place] [place] [address] Referring PhysicianPodiatr10/25/23Team MemberRelationshipSpecialtyStart DateEnd Date Will Tim MD [address] [place] [address] (Fax) PCP - [facility]02/08/23 Will Tim MD [address] [place] [address] (Fax) PCP - GeneralFamily Medicine02/10/25 Jeet Uriarte MD [address] [facility] Professional building 1 [place] [address] Referring PhysicianRheumatolog10/25/23 Osei Arevalo DPM [address] [place] [address] Referring PhysicianPodiatr10/25/23Team MemberRelationshipSpecialtyStart DateEnd Date Will Tim MD [address] [place] [address] (Fax) PCP - [facility]02/08/23 Will Tim MD [address] [address] (Fax) [facility] - [facility]/25 Jeet Uriarte MD [address] [facility] Professional building 1 [place] [address] Referring PhysicianRheumatology2 Osei Arevalo DPM [address] [place] [place] [address] Referring PhysicianPodiatry2Team MemberRelationshipSpecialtyStart DateEnd Will Tim MD [address] [place] [address] (Fax) PCP - [facility]02/08/23 Will Tim MD [address] [address] (Fax) PCP - [facility]02/10/25 Jeet Uriarte MD [address] [facility] Professional building [address] [place] [phone] Referring PhysicianRheumatology2 Osei Arevalo DPM [address] [place] [address] Referring PhysicianPodiatry2Team MemberRelationshipSpecialtyStart DateEnd Date Will Tim MD [address] [address] (Fax) PCP - [facility]02/08/23 Jeet Uriarte MD [address] [facility] Professional building 1 [place] [address] Referring PhysicianRheumatolog10/25/23 Osei Arevalo DPM [address] [place] [address] Referring PhysicianPodiatr10/25/23Team MemberRelationshipSpecialtyStart DateEnd Will Tim MD [address] [address] (Fax) PCP - [facility]02/08/23 Will Tim MD [address] [address] (Fax) PCP - GeneralFamily Medicine02/10/25 Jeet Uriarte MD [address] [facility] Professional building [address] [place] [phone] Referring PhysicianRheumatology2 Osei Arevalo DPM [address] [place] [address] Referring PhysicianPodiatr10/25/23Team MemberRelationshipSpecialtyStart DateEnd Date Will Tim MD [address] [address] (Fax) PCP - [facility]02/08/23 Will Tim MD [address] [place] [address] (Fax) PCP - GeneralFamily Medicine02/10/25 Jeet Uriarte MD [address] Professional [address] [place] [address] Referring PhysicianRheumatolog10/25/23 Osei Arevalo DPM [address] [place] [address] Referring PhysicianPodiatry2 Team Status: Inactive Member Role [...] MemberRelationshipSpecialtyStart DateEnd Date Will Tim MD [address] [place] [address] (Fax) PCP - [facility]02/08/23 Will Tim MD [address] [place] [address] (Fax) PCP - Generalmily Medicine02/10/25 Jeet Uriarte MD [address] Professional [address] [place] [address] Referring PhysicianRheumatolog10/25/23 Osei Arevalo DPM [address] [place] [address] Referring PhysicianPodiatry2Team MemberRelationshipSpecialtyStart DateEnd Will Tim MD [address] [place] [address] (Fax) PCP - [facility]02/08/23 Will Tim MD [address] [place] [address] (Fax) PCP - [facility]02/10/25 Jeet Uriarte MD [address] [facility] 1 [place] [address] Referring PhysicianRheumatology2 Osei Arevalo DPM [address] [place] [place] [address] Referring PhysicianPodiatry2Team MemberRelationshipSpecialtyStart DateEnd Will Tim MD [address] [place] [address] (Fax) PCP - [facility]02/08/23 Will Tim MD [address] [place] [address] (Fax) PCP - [facility]02/10/25 Jeet Uriarte MD [address] Professional [address] [place] [address] Referring PhysicianRheumatolog10/25/23 Osei Arevalo DPM [address] [place] [address] Referring PhysicianPodiatr10/25/23 Goals (unrecognized section and content) Goals may be documented in a n alternate sectionNo InformationGoals may be documented in an alternate sectionGoals may be documented in an alternate sectionNo InformationNo InformationGoals may be documented in an alternate sectionGoals may be documented in an alternate sectionGoals may be documented in an alternate section REASON FOR VISIT (unrecogniz ed section and content) QbcrphRwnterufWouwLgjvbqSfkillenDgqccpnrnayvNuvvmgcnujveypRjvsihEebobhqg9ja po colonoscopyReasonCommentsDM Foot CareBev Pinky De La Garza is a 74 y.o. female who presents for [facility] Foot [facility]. A1C 5.7 Dr. Davidson 07/03/2024 SS:9-9.5WReason CommentsFollow-upReasonOnset DateCommentsAdvice Only4ReasonComments ConsultColonoscopy- positive cologuardSpecialtyDiagnoses / ProceduresReferred By ContactReferred To ContactGeneral Surgery Diagnoses Encounter for screening for malignant neoplasm of colon Procedures [place] OFFICE/OUTPATIENT NEW HIGH MDM 60 MINUTES Will Tim MD [address] [place] [address] Alen Arshad MD [address] [address] Referral IDStatusReasonStart DateExpiration DateVisits RequestedVisits [id number] Specialty Services Required [id number] PainReasonCommentsDM Foot CarePCP: Dr. Stuart RENAE 10/27/24, [...] BE BASED ON THE PRIMARY CLINICAL RECORDS. [facility]. provides no warranty or guarantee of the accuracy or completeness of information in this document.
--- NOTE | 2025-07-30 14:09 | PM.CN ---
Consult Note: HPI Data of Consult Patient: known to practice within the last 3 years Consult date: 07/30/25 Requesting Physician: Leonel Issa MD Primary Care Provider: LULI ALVAREZ Consult Narrative Reason for consult: low back and RLE pain Narrative: Neha Blanc a pleasant 75 year old female presents for evaluation low back pain. Pt has longstanding hx of low back pain, however in November of 2024 she noticed increased pain as well as numbness tingling and weakness of RLE without cause or injury. PCP Dr Alvarez was able to update emg which revealed chronic L5/S1 radiculopathy. Pain 10/10 increasing to 10/10 with standing, walking, bending, activity. Pain improved with sitting, lying, forward flexion, and sleeping. pt denies fall/injury. no prior lumbar surgery, did meet with [facility] Dr Garcia recently for evaluation but she is not interested in surgical intervention. continues to engage in HEP as tolerated. currently utilizing duloxetine, gabapentin, tylenol. stopped nabumetone and nsaids due to GI upset. since last visit underwent right L4/5 L5/S1 TFESI with mild relief, noting severe right thigh and upper leg pain cc:: CC: Leonel Issa MD Review of Systems ROS Musculoskeletal Reports: back pain and extremity pain PFSH PFSH Medical History Hypoglycemia ?E16.2 - Hypoglycemia, unspecified (ICD-10) High cholesterol ?E78.00 - Pure hypercholesterolemia, unspecified (ICD-10) Chronic GERD ?K21.9 - Gastro-esophageal reflux disease without esophagitis (ICD-10) Low back pain ?M54.50 - Low back pain, unspecified (ICD-10) Osteoarthritis ?M19.90 - Unspecified osteoarthritis, unspecified site (ICD-10) Smoker ?F17.200 - Nicotine dependence, unspecified, uncomplicated (ICD-10) Surgical History H/O arthroplasty ?Z96.60 - Presence of unspecified orthopedic joint implant (ICD-10) H/O arthroscopy ?Z98.890 - Other specified postprocedural states (ICD-10) History of tonsillectomy ?Z90.89 - Acquired absence of other organs (ICD-10) H/O: hysterectomy ?Z90.710 - Acquired absence of both cervix and uterus (ICD-10) History of cholecystectomy ?Z90.49 - Acquired absence of other specified parts of digestive tract (ICD-10) Hx of appendectomy ?Z90.49 - Acquired absence of other specified parts of digestive tract (ICD-10) H/O shoulder replacement ?Z96.619 - Presence of unspecified artificial shoulder joint (ICD-10) Social History Little interest or pleasure in doing things: not at all Feeling down, depressed, or hopeless: not at all Meds Home Medications and Allergies Home Medications ?Medication ?Instructions ?Recorded ?Confirmed ?Type aspirin 81 mg capsule 81 mg PO DAILY 02/18/25 07/20/25 History atorvastatin 10 mg tablet mg 02/18/25 History duloxetine 60 mg capsule,delayed mg PO 02/18/25 History release folic acid 800 mcg tablet 800 mcg PO DAILY 02/18/25 07/20/25 History gabapentin 100 mg tablet 100 mg PO TID 02/18/25 07/20/25 History metformin 1,000 mg tablet mg 02/18/25 History methotrexate sodium 2.5 mg tablet mg 02/18/25 History nabumetone 750 mg tablet mg 02/18/25 History omeprazole 20 mg capsule,delayed mg 02/18/25 History release Allergies Allergy/AdvReac Type Severity Reaction Status Date / Time clindamycin Allergy Severe Rash Verified 07/20/25 08:36 hydroxychloroquine (From Allergy Severe Rash Verified 07/20/25 08:36 Plaquenil) Exam Constitutional Documenting provider has reviewed patient's vital signs: yes Common normals: no apparent distress, oriented x3, healthy appearing, alert and well nourished General appearance: cooperative [facility] Common normals: normocephalic, hearing grossly normal bilaterally and moist oral mucous membranes Head and scalp: normocephalic Eye Common normals: PERRL Pupil: PERRL Neck & C-Spine Common normals: full ROM General: normal visual inspection Chest Common normals: inspection of chest normal Respiratory Common normals: normal respiratory effort, no retractions and no use of accessory muscles Back & Pelvis Lumbar spine/lower back: ROM limited, pain with ROM, lumbar spinal tenderness and straight leg raise positive right Sacroiliac joints: SI joints normal and SI joint(s) abnormal Other: radiculopathy noted to right L2,3,4 increased pain with standing and walking, improves significantly with forward flexion strength 4/5 in RLE and 5/5 in LLE Right SIJ negative gentry(rosario), gaenslens, thigh thrust, compression test Neuro Common normals: oriented x3 Sensorium/orientation: alert Psych Common normals: mental status grossly normal, thought process normal, cooperative, affect normal, speech normal and activity/motor behavior normal Speech: normal speech Thought process: normal thought process Results Imaging Lumbar MRI : Attestation: I have reviewed the pertinent imaging results. Radiologist's impression: L1-2 :Disc space narrowing with endplate changes. Diffuse disc bulge and endplate spurring. Mild central canal stenosis. Posterior element hypertrophy. Mild bilateral neural foraminal narrowing L2-3: Marked disc space narrowing with degenerative endplate change. Diffuse disc bulge with endplate spurring. Moderate to severe central canal stenosis. Moderate bilateral neural foraminal narrowing L3-4: Moderate disc space narrowing. Diffuse disc bulge and endplate spurring. Severe central canal stenosis. Posterior element hypertrophy. Marked bilateral neural foraminal narrowing L4-5: Moderate disc space narrowing. Diffuse disc bulge. Marked central canal stenosis. Posterior element hypertrophy. Marked bilateral neural foraminal narrowing L5-S1: Mild disc space narrowing. Mild anterolisthesis. Moderate central canal stenosis. Diffuse disc bulge. Posterior element hypertrophy. Moderate bilateral neural foraminal narrowing Additional Findings Additional findings: If on a controlled substance or opioids, I have checked an [place] report on this patient and there are no aberrancies noted in the prescribing history.??If on a controlled substance or opioid a drug screen was completed and reviewed within the last year, and if there has not been a drug screen completed we ordered one today to monitor higher risk, state monitored pain medication use. As part of providing excellent, safe, comprehensive care, the following was completed at our patient's visit: 1. A medication reconciliation and review to ensure accurate knowledge of current/active medications, including asking our patients to inform us about any [id number] medications or herbal remedies/nutritional supplements/alternative remedies. 2. A review to specifically ensure our patients have had annual screening for screening for depression, screening for tobacco use, and screening for unhealthy alcohol use. For concerning screenings had a discussion with the patient, provided patient education, and recommended follow-up with primary care provider when appropriate. If patient noted with a risk of falling, they received education on strength, gait, and balance training to prevent future risk of falling. Portions of this note may have been carried over from the previous visit and updated as appropriate. Please note this office utilizes paper charting in addition to the electronic medical record. A list of current medications, vitals, and PMH is available there as the clinical staff outside of myself do not have access to [employer] charting during the clinic day operations. As part of providing quality comprehensive care the current medications, vitals, and PMH were reviewed in the paper chart. Assessment and Plan Assessment and Plan (1) Lumbar stenosis with neurogenic claudication: Assessment and Plan: 03-30-25 right L3-4 L4-5 TFESI >50% improvement for 3 months 07/20/25 right L4-5 L5-S1 TFESI less than 50% improvement due to severe multidermatomal pain, notable improvement at right L5/S1 (2) Lumbar spondylosis: (3) Sacroiliitis: Plan The patient has had over 3 months of moderate to severe low back and right LE pain with functional impairment and inadequate response to conservative care including NSAIDS (unless there are contraindication such as concurrent blood thinners), multiple oral or topical pain medications, and home exercise program/physical therapy.? Patient has completed >6 weeks of guided home exercise program and/or formal physical therapy program without relief of their symptoms.? I have reviewed the imaging of the lumbar spine and no red flags were identified.? The imaging reveals radiographic findings consistent with lumbar stenosis, lumbar ddd, spondylosis The Oswestry Disability Index was completed, and the patient scored a 24%.? increase gabapentin 300mg TID for 1 week, risks vs benefits reviewed. nurse call in 1 week to evaluate medication changes, can consider increasing to 600mg TID if needed patient advised to schedule f/u with NS due to severe right lower extremity pain, if pt non surgical we will consider scs trial. handout provided today continue duloxetine 60mg daily f/u based on NS recommendations
== END 2025-07-30 13:37 | disposition home or self-care (01) ==
LOC: PM 13:36
PROVIDERS: PCP Family Medicine; Visit Provider Anesthesiology
DX: M48.062 Spinal stenosis, lumbar region with neurogenic claudication (principal); M47.816 Spondylosis without myelopathy or radiculopathy, lumbar region; M46.1 Sacroiliitis, not elsewhere classified
CPT/HCPCS: G0463